=== PATIENT | female | born 1930 | race Caucasian/White ===

== ENCOUNTER 2016-07-02 11:39 | Inpatient (IN) | payer MEDICARE, OTHER ==
[~2016-07-02] VITALS: Ht 157.5 cm; Wt 61.8 kg
[~2016-07-02 11:39] MED LIST: BENI20TA5 PO; CIPR500T19 PO; DOXY100C PO; FEOS200T2 PO; FERR325T3 PO; FOLI1TAB2 PO; HYDR-4267 PO; HYDR25TAB PO; LABE20TAB PO; NITR100C37 PO; ZETI10TA2 PO
[2016-07-02 13:32] LABS: BASO # 0.1 K/mm3 (0.0-0.2); BASO % 0.8 % (0.0-1.0); EOS # 0.5 K/mm3 (0.0-0.50); EOS % 5.2 % (0.0-3.0); LARGE UNSTAINED CELL # 0.1 K/mm3 (0.0-0.4); LARGE UNSTAINED CELL % 1.6 % (0.0-4.0); LYMPH # 0.7 K/mm3 (1.5-4.5); MEAN CORPUSCULAR HEMOGLOBIN 24.9 pg (27.0-33.0); MEAN CORPUSCULAR HGB CONC 28.8 g/dl (32.0-36.5); MEAN CORPUSCULAR VOLUME 86.2 fl (80.0-96.0); MONO # 0.5 K/mm3 (0.0-0.8); MONO % 5.1 % (0.0-5.0); NEUTROPHILS # 7.3 K/mm3 (1.8-7.7); NEUTROPHILS % 81.4 % (36.0-66.0); PLATELET COUNT, AUTOMATED 248 k/mm3 (150-450); RED CELL DISTRIBUTION WIDTH 16.2 % (11.5-14.5); WHITE BLOOD COUNT 8.9 K/mm3 (4.0-10.0)
[2016-07-02 13:35] LABS: ADD MORPHOLOGY? YES
[2016-07-02 13:48] LABS: ANISOCYTOSIS 1+; HYPOCHROMASIA 2+
[2016-07-02 13:52] LABS: CALCIUM LEVEL 9.4 MG/DL (8.8-10.2); CREATININE FOR GFR 1.08 MG/DL (0.55-1.02); GLOMERULAR FILTRATION RATE 51.6 (>32); POTASSIUM SERUM 3.6 MEQ/L (3.5-5.1)
[2016-07-02 14:05] LABS: ERYTHROCYTE SEDIMENTATION RATE 72 mm/hr (0-30)
--- NOTE | 2016-07-02 14:43 | REP ---
Bilateral lower extremity Duplex Doppler venous ultrasound: Real time compression and duplex Doppler interrogation of the bilateral lower extremity deep venous system is performed. Bilaterally, the common femoral, superficial femoral and popliteal veins are fully compressible with transducer pressure and demonstrate normal spontaneous and phasic flow, without evidence of deep venous thrombosis. Impression: No evidence of deep venous thrombosis of the bilateral lower extremity femoral popliteal venous system. Signed by Max Ambriz MD 07/02/2016 02:08 P
[2016-07-02] MEDS ORDERED: NORCO, ANEXSIA 5/325MG TABLET (HYDROcodone/ACETAMINOPHEN) As Ordered ONE (14:52)
--- NOTE | 2016-07-02 15:55 | REP ---
CT right hip without contrast 07/02/2016 Comparison: CT abdomen pelvis 11/28/2013 performed at [facility], right hip series performed 07/02/1969 Indication: Possible occult fracture Comparison: Right hip series to include AP pelvis, AP and frog-leg views right hip; Findings: Advanced osteoarthritic changes are seen within the right hi. There are subchondral cystic change and sclerosis within the right femoral head which can represent small amount of associated avascular necrosis in association with advanced osteoarthritic changes. The included portions of right sara pelvis are intact without acute fracture or diastases of the symphysis pubis or right SI joint. Ovoid soft tissue opacity in the right iliac fossa is most compatible with a hepatomegaly when compared with previous CT abdomen pelvis 11/28/2013 at [facility]. Bladder is contracted. The uterus is absent . 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 No acute fracture or displacement. Visualized portions of the right SI joint, and right lower pelvis are without fracture or displacement Hepatomegaly Signed by Hilda Coello MD 07/02/2016 03:47 P
--- NOTE | 2016-07-02 17:04 | REP ---
PELVIS AND RIGHT HIP: AP view of the pelvis and two views of the right hip are performed. I see no evidence of acute fracture or dislocation. There is severe degenerative changes at the right hip joint with severe joint space narrowing, subchondral sclerosis and cystic changes. There is spurring. There is mild to moderate degenerative change at the left hip joint. There are degenerative changes of the lower lumbar spine. IMPRESSION: Degenerative changes without evidence of acute fracture or dislocation. Signed by Max Ambriz MD 07/03/2016 05:10 P
[2016-07-02] MEDS ORDERED: ACET30TAB PO (17:31)
[2016-07-02] MEDS ORDERED: BUME1TA PO (17:31)
[2016-07-02] MEDS ORDERED: LABE20TAB PO (17:31)
[2016-07-02] MEDS ORDERED: ZYLO300T4 PO (17:31)
[2016-07-02] MEDS ORDERED: HYDR10TAB PO (17:31)
--- NOTE | 2016-07-02 18:47 | EDDOCDS ---
Physician Documentation [facility] Name: Anabelle Hernandez Age: 85 yrs Sex: Female : 1930 Arrival Date: 07/02/2016 Time: 11:39 Bed 17 Private MD: Anthony Mckenzie MD Disposition: 07/02/16 17:02 Hospitalization ordered by Kvng Lacy for Inpatient Admission. Preliminary diagnosis is Pain in right hip. - Bed requested for 5 [place]. - Status is Inpatient Admission. karey - Condition is Stable. - Problem is chronic. - Symptoms have improved. Historical: - Allergies: No known drug Allergies; - Home Meds: 1. losartan 50 mg oral tab 1 tab once daily 2. Zetia 10 mg Oral tab 1 tab once daily 3. bumetanide 1 mg Oral tab 1 tab once daily 4. hydralazine 50 mg Oral tab 1 tab three times a day 5. nitrofurantoin macrocrystal 100 mg Oral cap 1 cap twice a day 6. allopurinol 300 mg Oral tab 1 tab once daily 7. labetalol 200 mg Oral tab 1 tab 2 times per day - PMHx: Hypertension; Hypercholesterolemia; Anemia; - PSHx: Hysterectomy; Tonsillectomy; - Social history: No barriers to communication noted, The patient speaks fluent Danish, Smoking status: Patient states was never smoker of tobacco. - Family history: Not pertinent. - : The pt / caregiver states he / she is not on anticoagulants. Home medication list is obtained from pill bottles. - Exposure Risk Screening:: None identified. Vital Signs: 07/02 12:08 BP 138 / 60; Pulse 86; Resp 18; Temp 98.5(O); Pulse Ox 99% on R/A; Weight 68.04 kg / dem1 150 lbs (R); Height 5 ft. 2 in. (157.48 cm) (R); Pain 3/10; 12:44 BP 135 / 62 (auto/); js13 12:44 Pulse 94 MON; Resp 16; Pulse Ox 97% on R/A; 13 12:59 BP 131 / 72 (auto/); js13 12:59 Pulse 106 MON; Resp 16; Pulse Ox 98% on R/A; 13:14 BP 143 / 62 (auto/); 13:14 Pulse 94 MON; Resp 16; Pulse Ox 98% on R/A; js13 13:29 BP 137 / 64 (auto/); js13 13:29 Pulse 94 MON; Resp 16; Pulse Ox 97% on R/A; js13 13:44 BP 133 / 65 (auto/); js13 13:44 Pulse 94 MON; Resp 18; Pulse Ox 97% on R/A; js13 13:59 BP 157 / 75 (auto/); js13 13:59 Pulse 96 MON; Resp 16; Pulse Ox 100% on R/A; js13 14:14 BP 150 / 67 (auto/); js13 14:14 Pulse 96 MON; Resp 16; Pulse Ox 100% on R/A; js13 14:29 BP 149 / 65 (auto/); js13 14:29 Pulse 96 MON; Resp 16; Pulse Ox 98% on R/A; js13 14:44 BP 133 / 62 (auto/); js13 14:44 Pulse 94 MON; Resp 18; Pulse Ox 98% on R/A; js13 14:59 BP 138 / 97 (auto/); js13 14:59 Pulse 96; Resp 18; Pulse Ox 97% on R/A; js13 15:30 BP 174 / 74 (auto/); js13 15:30 Pulse 98 MON; Resp 18; Pulse Ox 94% on R/A; js13 12:08 Body Mass Index 27.44 (68.04 kg, 157.48 cm) dem1 MDM: 12:57 -Blood Culture (Adults Only), peripheral from different site, or from device/port/PICC sd1 etc. if present ordered. 12:58 CBC with Diff Ordered. EDMS 12:58 MED Profile Ordered. EDMS 12:58 Sed Rate Ordered. EDMS 12:58 CRP Ordered. EDMS 12:58 -Blood Culture Ordered. EDMS 12:59 US Lower Extremities Bilateral R/O DVT Ordered. EDMS 12:59 Hip,AP,LAT to include Pelvis Ordered. EDMS 13:26 -Blood Culture (Adults Only), peripheral from different site, or from device/port/PICC ct3 etc. if present complete. 13:30 BLOOD CULTURES Ordered. EDMS 13:37 RBC MORPH PROF NO CHARGE Ordered. EDMS 14:12 CBC with Diff Reviewed. sd1 14:12 MED Profile Reviewed. sd1 14:12 Sed Rate Reviewed. sd1 14:12 CRP Reviewed. sd1 14:12 RBC MORPH PROF NO CHARGE Reviewed. sd1 14:14 HYDROcodone-acetaminophen 5 mg-325 mg 1 tabs PO once ordered. sd1 14:14 Misc. Nursing Order ordered. sd1 15:04 CT Hip Without Contrast Ordered. EDMS 15:30 Financial registration complete. gjb 16:14 [facility] Payment Agreement was scanned into [employer] and attached to record. gjb 17:07 Admission / Observation Status ordered. EDMS Administered Medications: 15:02 Drug: HYDROcodone-acetaminophen 1 tabs [hydrocodone 5 mg-acetaminophen 325 mg tablet (1 js13 tabs)] Route: PO; Signatures: Dispatcher [employer] EDMS Alicia Vidal MD MD sd1 Leonie Brown, TOWER EQUIPMENT REPAIRER TOWER EQUIPMENT REPAIRER karey DasilvaFabiana smith, TOWER EQUIPMENT REPAIRER TOWER EQUIPMENT REPAIRER ct3 Martha SaraviaRN RUTHIE js13 Tiffanie Dias RN Rosette Segovia mem The chart was reviewed and I authenticate all verbal orders and agree with the evaluation and treatment provided.Attachments: 16:14 [facility] Payment Agreement gj MTDD
--- NOTE | 2016-07-02 18:47 | EDDOCDS ---
Nurse's Notes [facility] Name: Anabelle Hernandez Age: 85 yrs Sex: Female : 1930 Arrival Date: 07/02/2016 Time: 11:39 Bed 17 Private MD: Anthony Mckenzie MD Diagnosis: Pain in right hip Presentation: 07/02 11:58 Presenting complaint: EMS states: Patient fell a year a go causing her right hip to js13 hurt and has been getting "shots" in her right hip with last injection 3 months ago. Patient c/o increased pain in right hip for past couple days and hurts to walk now. Patient called ortho group and was told to come here. Suicide/Homicide risk assessment- the patient denies having any suicidal and/or homicidal ideations and does not present with any other emotional, behavioral or mental health complaints. Status: Patient is not a direct service worker or dependent. Transition of care: patient was not received from another setting of care. Care prior to arrival: See EMS report. 11:58 Acuity: KEO Level 3 [facility] 11:58 Method Of Arrival: Walkin/Carried/Asstd [facility] 18:25 Adult Sepsis Screening: The patient does not have new or worsening altered mentation. js13 Patient's respiratory rate is less than 22. Systolic blood pressure is greater than 100. Patient has a qSOFA score of 0- Negative Sepsis Screen. Triage Assessment: 11:58 General: Appears in no apparent distress, comfortable, Behavior is appropriate for age, js13 cooperative. Pain: Location: right hip Pain currently is 3 out of 10 on a pain scale. Neurological: Level of Consciousness is awake, alert. Respiratory: Airway is patent Respiratory effort is even, unlabored, Respiratory pattern is regular, symmetrical. Derm: Skin is pink, warm & dry. Historical: - Allergies: No known drug Allergies; - Home Meds: 1. losartan 50 mg oral tab 1 tab once daily 2. Zetia 10 mg Oral tab 1 tab once daily 3. bumetanide 1 mg Oral tab 1 tab once daily 4. hydralazine 50 mg Oral tab 1 tab three times a day 5. nitrofurantoin macrocrystal 100 mg Oral cap 1 cap twice a day 6. allopurinol 300 mg Oral tab 1 tab once daily 7. labetalol 200 mg Oral tab 1 tab 2 times per day - PMHx: Hypertension; Hypercholesterolemia; Anemia; - PSHx: Hysterectomy; Tonsillectomy; - Social history: No barriers to communication noted, The patient speaks fluent S[place], Smoking status: Patient states was never smoker of tobacco. - Family history: Not pertinent. - : The pt / caregiver states he / she is not on anticoagulants. Home medication list is obtained from pill bottles. - Exposure Risk Screening:: None identified. Screenin:02 Screening information is obtained from the patient. Fall risk: At risk due to age, gait js13 disturbance. Assistance ADL's: requires no assistance with activities of daily living. Abuse/DV Screen: The patient / caregiver reports he/she is: not in a situation that causes fear, pain or injury. Nutritional screening: No deficits noted. Advance Directives: There is no active DNR order. home support is adequate. Assessment: 12:15 General: Appears in no apparent distress, Behavior is appropriate for age, cooperative. js13 Pain: Location: right hip. Neurological: Level of Consciousness is awake, alert. Cardiovascular: Rhythm is sinus rhythm Chest pain is denied. Respiratory: Airway is patent Respiratory effort is even, unlabored, Respiratory pattern is regular, symmetrical. Derm: Skin is pink, warm & dry. Musculoskeletal: Circulation, motion, and sensation intact Range of motion limited in right hip. 13:39 General: Appears in no apparent distress, Behavior is appropriate for age, cooperative. js13 Pain: Location: right hip. Neurological: Level of Consciousness is awake, alert. Cardiovascular: Rhythm is sinus rhythm Chest pain is denied. Respiratory: Airway is patent Respiratory effort is even, unlabored, Respiratory pattern is regular, symmetrical. Derm: Skin is pink, warm & dry. 14:38 General: Appears in no apparent distress, Behavior is appropriate for age, cooperative. js13 Pain: Location: right hip. Neurological: Level of Consciousness is awake, alert. Cardiovascular: Rhythm is sinus rhythm Chest pain is denied. Respiratory: Airway is patent Respiratory effort is even, unlabored, Respiratory pattern is regular, symmetrical. Derm: Skin is pink, warm & dry. 15:02 General: Patient unable to walk. Patient only able to stand and then sit back down. . js13 15:35 General: Appears in no apparent distress, Behavior is appropriate for age, cooperative. js13 Pain: Location: right hip. Neurological: Level of Consciousness is awake, alert. Cardiovascular: Rhythm is sinus rhythm Chest pain is denied. Respiratory: Airway is patent Respiratory effort is even, unlabored, Respiratory pattern is regular, symmetrical. Derm: Skin is pink, warm & dry. 16:45 Adult Sepsis Screening: The patient does not have new or worsening altered mentation. js13 Patient's respiratory rate is less than 22. Systolic blood pressure is greater than 100. Patient has a qSOFA score of 0- Negative Sepsis Screen. General: Appears in no apparent distress, Behavior is appropriate for age, cooperative. Pain: Location: right hip. Neurological: Level of Consciousness is awake, alert. Neurological: Level of Consciousness is awake, alert. Cardiovascular: Rhythm is sinus rhythm Chest pain is denied. Respiratory: Airway is patent Respiratory effort is even, unlabored, Respiratory pattern is regular, symmetrical. Derm: Skin is pink, warm & dry. 17:44 General: Appears in no apparent distress, Behavior is appropriate for age, cooperative. js13 Pain: Location: right hip. Neurological: Level of Consciousness is awake, alert. Cardiovascular: Chest pain is denied. Respiratory: Airway is patent Respiratory effort is even, unlabored, Respiratory pattern is regular, symmetrical. Derm: Skin is pink, warm & dry. 18:17 General: Appears in no apparent distress, Behavior is appropriate for age, cooperative. js13 Pain: Location: right hip. Neurological: Level of Consciousness is awake, alert. Cardiovascular: Rhythm is sinus rhythm Chest pain is denied. Respiratory: Airway is patent Respiratory effort is even, unlabored, Respiratory pattern is regular, symmetrical. Derm: Skin is pink, warm & dry. Vital Signs: 12:08 BP 138 / 60; Pulse 86; Resp 18; Temp 98.5(O); Pulse Ox 99% on R/A; Weight 68.04 kg (R); dem1 Height 5 ft. 2 in. (157.48 cm) (R); Pain 3/10; 12:44 BP 135 / 62 (auto/); 13 12:44 Pulse 94 MON; Resp 16; Pulse Ox 97% on R/A; 13 12:59 BP 131 / 72 (auto/); js13 12:59 Pulse 106 MON; Resp 16; Pulse Ox 98% on R/A; 13 13:14 BP 143 / 62 (auto/); 13 13:14 Pulse 94 MON; Resp 16; Pulse Ox 98% on R/A; js13 13:29 BP 137 / 64 (auto/); js13 13:29 Pulse 94 MON; Resp 16; Pulse Ox 97% on R/A; js13 13:44 BP 133 / 65 (auto/); js13 13:44 Pulse 94 MON; Resp 18; Pulse Ox 97% on R/A; js13 13:59 BP 157 / 75 (auto/); js13 13:59 Pulse 96 MON; Resp 16; Pulse Ox 100% on R/A; js13 14:14 BP 150 / 67 (auto/); js13 14:14 Pulse 96 MON; Resp 16; Pulse Ox 100% on R/A; js13 14:29 BP 149 / 65 (auto/); js13 14:29 Pulse 96 MON; Resp 16; Pulse Ox 98% on R/A; js13 14:44 BP 133 / 62 (auto/); js13 14:44 Pulse 94 MON; Resp 18; Pulse Ox 98% on R/A; js13 14:59 BP 138 / 97 (auto/); js13 14:59 Pulse 96; Resp 18; Pulse Ox 97% on R/A; js13 15:30 BP 174 / 74 (auto/); js13 15:30 Pulse 98 MON; Resp 18; Pulse Ox 94% on R/A; js13 12:08 Body Mass Index 27.44 (68.04 kg, 157.48 cm) dem1 Vitals: 11:58 Log In Time N/A - ambulance arrival. js13 ED Course: 11:41 Patient visited by Christie Barrow, Replenishment Merchandising Associate. lbd 11:41 Anthony Mckenzie is Private Physician. lbd 11:41 Patient moved to Waiting lbd 11:42 Martha Saravia,RN is Primary Nurse. lbd 11:42 Patient moved to 17 lbd 12:01 Triage Initiated js13 12:02 The patient / caregiver is instructed regarding the plan of care and ED course. Bed in [facility] low position. Call light in reach. Side rails up X2. 12:02 No procedures done that require assistance. js13 12:03 Patient visited by Martha Saravia,RUTHIE. 13 12:06 Patient visited by Rona Harmon. dem1 12:06 child monitor on. Pulse ox on. NIBP on. dem1 12:08 Patient visited by Rona Harmon. dem1 12:13 Alicia Vidal MD is Attending Physician. sd1 12:42 Patient visited by Alicia Vidal MD. sd1 13:26 CRP Sent. ct3 13:26 Sed Rate Sent. ct3 13:26 MED Profile Sent. ct3 13:26 -Blood Culture Sent. ct3 13:26 CBC with Diff Sent. ct3 13:41 Patient visited by Martha Saravia RN. js13 13:43 Patient moved to Ultrasound hgl 13:48 RBC MORPH PROF NO CHARGE Sent. js13 14:02 Patient moved to 17 hgl 14:39 Patient visited by Martha Saravia RN. js13 15:08 US Lower Extremities Bilateral R/O DVT Returned. EDMS 15:36 Patient visited by Martha Saravia RN. js13 16:14 [facility] Payment Agreement was scanned into [employer] and attached to record. gjb 16:37 CT Hip Without Contrast Returned. EDMS 16:44 Patient visited by Alicia Vidal MD. sd1 17:02 Kvng Lacy DO is Hospitalizing Provider. sd1 17:23 Hip,AP,LAT to include Pelvis Returned. EDMS 17:47 Patient visited by Martha Saravia RN. js13 18:18 Patient visited by Martha Saravia RN. js13 18:27 No IV's were initiated during this patient's visit. js13 Administered Medications: 15:02 Drug: HYDROcodone-acetaminophen 1 tabs [hydrocodone 5 mg-acetaminophen 325 mg tablet (1 js13 tabs)] Route: PO; Order Results: Lab Order: CBC with Diff; SPEC'M 07/02/16 13:24 Test: WHITE BLOOD COUNT; Value: 8.9; Range: 4.0-10.0; Units: K/mm3; Status: F Test: RED BLOOD COUNT; Value: 3.68; Range: 4.00-5.40; Abnormal: Below low normal; Units: M/mm3; Status: F Test: HEMOGLOBIN; Value: 9.2; Range: 12.0-16.0; Abnormal: Below low normal; Units: g/dl; Status: F Test: HEMATOCRIT; Value: 31.7; Range: 36.0-47.0; Abnormal: Below low normal; Units: %; Status: F Test: MEAN CORPUSCULAR VOLUME; Value: 86.2; Range: 80.0-96.0; Units: fl; Status: F Test: MEAN CORPUSCULAR HEMOGLOBIN; Value: 24.9; Range: 27.0-33.0; Abnormal: Below low normal; Units: pg; Status: F Test: MEAN CORPUSCULAR HGB CONC; Value: 28.8; Range: 32.0-36.5; Abnormal: Below low normal; Units: g/dl; Status: F Test: RED CELL DISTRIBUTION WIDTH; Value: 16.2; Range: 11.5-14.5; Abnormal: Above high normal; Units: %; Status: F Test: PLATELET COUNT, AUTOMATED; Value: 248; Range: 150-450; Units: k/mm3; Status: F Test: NEUTROPHILS %; Value: 81.4; Range: 36.0-66.0; Abnormal: Above high normal; Units: %; Status: F Test: LYMPH %; Value: 6.0; Range: 24.0-44.0; Abnormal: Below low normal; Units: %; Status: F Test: MONO %; Value: 5.1; Range: 0.0-5.0; Abnormal: Above high normal; Units: %; Status: F Test: EOS %; Value: 5.2; Range: 0.0-3.0; Abnormal: Above high normal; Units: %; Status: F Test: BASO %; Value: 0.8; Range: 0.0-1.0; Units: %; Status: F Test: LARGE UNSTAINED CELL %; Value: 1.6; Range: 0.0-4.0; Units: %; Status: F Test: NEUTROPHILS #; Value: 7.3; Range: 1.8-7.7; Units: K/mm3; Status: F Test: LYMPH #; Value: 0.7; Range: 1.5-4.5; Abnormal: Below low normal; Units: K/mm3; Status: F Test: MONO #; Value: 0.5; Range: 0.0-0.8; Units: K/mm3; Status: F Test: EOS #; Value: 0.5; Range: 0.0-0.50; Units: K/mm3; Status: F Test: BASO #; Value: 0.1; Range: 0.0-0.2; Units: K/mm3; Status: F Test: LARGE UNSTAINED CELL #; Value: 0.1; Range: 0.0-0.4; Units: K/mm3; Status: F Test: PLATELET ESTIMATE; Range: NORMAL; Status: I Lab Order: MED Profile; SPEC'M 07/02/16 13:23 Test: GLUCOSE, FASTING; Value: 135; Range: 83-110; Abnormal: Above high normal; Units: MG/DL; Status: F Test: BLOOD UREA NITROGEN; Value: 23; Range: 7-18; Abnormal: Above high normal; Units: MG/DL; Status: F Test: CREATININE FOR GFR; Value: 1.08; Range: 0.55-1.02; Abnormal: Above high normal; Units: MG/DL; Status: F Test: GLOMERULAR FILTRATION RATE; Value: 51.6; Range: >32; Status: F Test: SODIUM LEVEL; Value: 140; Range: 136-145; Units: MEQ/L; Status: F Test: POTASSIUM SERUM; Value: 3.6; Range: 3.5-5.1; Units: MEQ/L; Status: F Test: CHLORIDE LEVEL; Value: 101; Range: 98-107; Units: MEQ/L; Status: F Test: CARBON DIOXIDE LEVEL; Value: 32; Range: 21-32; Units: MEQ/L; Status: F Test: ANION GAP; Value: 7; Range: 8-16; Abnormal: Below low normal; Units: MEQ/L; Status: F Test: CALCIUM LEVEL; Value: 9.4; Range: 8.8-10.2; Units: MG/DL; Status: F Test Note: ; Units are mL/min/1.73 m2 Chronic Kidney Disease Staging per NKF: Stage I & II GFR >=60 Normal to Mildly Decreased Stage III GFR 30-59 Moderately Decreased Stage IV GFR 15-29 Severely Decreased Stage V GFR <15 Very Little GFR Left ESRD GFR <15 on THERAPEUTIC RECREATION DIRECTOR Lab Order: Sed Rate; SPEC'M 07/02/16 13:24 Test: ERYTHROCYTE SEDIMENTATION RATE; Value: 72; Range: 0-30; Abnormal: Above high normal; Units: mm/hr; Status: F Lab Order: CRP; SPEC'M 07/02/16 13:23 Test: C REACTIVE PROTEIN QUANTITATIV; Value: 3.95; Range: 0.00-0.30; Abnormal: Above high normal; Units: MG/DL; Status: F Lab Order: RBC MORPH PROF NO CHARGE; SPEC'M 07/02/16 13:24 Test: HYPOCHROMASIA; Value: 2+; Status: F Test: ANISOCYTOSIS; Value: 1+; Status: F Test: PLATELET ESTIMATE; Value: NORMAL; Range: NORMAL; Status: F Radiology Order: US Lower Extremities Bilateral R/O DVT Test: US Lower Extremities Bilateral R/O DVT REASON FOR EXAMINATION: swelling; Bilateral lower extremity Duplex Doppler venous ultrasound:; ; Real time compression and duplex Doppler interrogation of the bilateral lower; extremity deep venous system is performed. Bilaterally, the common femoral,; superficial femoral and popliteal veins are fully compressible with transducer; pressure and demonstrate normal spontaneous and phasic flow, without evidence of; deep venous thrombosis.; ; Impression:; ; No evidence of deep venous thrombosis of the bilateral lower extremity femoral; popliteal venous system.; ; ; Signed by; Max Ambriz MD 07/02/2016 02:08 P; Radiology Order: Hip,AP,LAT to include Pelvis Test: Hip,AP,LAT to include Pelvis REASON FOR EXAMINATION: Trauma; PELVIS AND RIGHT HIP:; ; AP view of the pelvis and two views of the right hip are performed.; ; I see no evidence of acute fracture or dislocation. There is severe degenerative; changes at the right hip joint with severe joint space narrowing, subchondral; sclerosis and cystic changes. There is spurring. There is mild to moderate; degenerative change at the left hip joint. There are degenerative changes of the; lower lumbar spine.; ; IMPRESSION:; Degenerative changes without evidence of acute fracture or dislocation.; ; ; ; Unreviewed; Radiology Order: CT Hip Without Contrast Test: CT Hip Without Contrast REASON FOR EXAMINATION: ?occult fx; CT right hip without contrast 07/02/2016; ; Comparison: CT abdomen pelvis 11/28/2013 performed at [facility],; right hip series performed 07/02/1969; ; Indication: Possible occult fracture; ; Comparison: Right hip series to include AP pelvis, AP and frog-leg views right; hip;; ; Findings: Advanced osteoarthritic changes are seen within the right hi. There; are subchondral cystic change and sclerosis within the right femoral head which; can represent small amount of associated avascular necrosis in association with; advanced osteoarthritic changes. The included portions of right sara pelvis; are intact without acute fracture or diastases of the symphysis pubis or right; SI joint.; ; Ovoid soft tissue opacity in the right iliac fossa is most compatible with a; hepatomegaly when compared with previous CT abdomen pelvis 11/28/2013 at [facility].; ; Bladder is contracted. The uterus is absent . 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 No acute fracture or; displacement. Visualized portions of the right SI joint, and right lower pelvis; are without fracture or displacement; ; Hepatomegaly; ; ; ; ; ; ; ; ; ; ; Signed by; Hilda Coello MD 07/02/2016 03:47 P; Outcome: 17:02 Decision to Hospitalize by Provider. sd1 18:26 Discharge Assessment: Patient awake, alert and oriented x 3. No cognitive and/or js13 functional deficits noted. Patient verbalized understanding of disposition instructions. patient administered narcotics - no. The following High Risk Discharge criteria are identified: None. Admitted to Med/Surg accompanied by tech, family with patient, via stretcher, with chart. Condition: stable. CT Study completed. Admission hand-off: Report Faxed. Property :Personal belongings accompany Pt. 18:46 Patient left the ED. karey Signatures: Dispatcher [employer] EDAliica Kwon MD MD sd1 Christie Barrow, Replenishment Merchandising Associate Unit lbd Leonie Brown, ANESTHESIOLOGY RESIDENT ANESTHESIOLOGY RESIDENT karey Fabiana Dasilva, ANESTHESIOLOGY RESIDENT ANESTHESIOLOGY RESIDENT ct3 Rona Harmon dem1 Martha Saravia RN RN js13 Ashwin Anguiano Gabriela gjb Corrections: (The following items were deleted from the chart) 16:31 15:30 Pulse 148bpm; MonitorResp 18bpm; Pulse Ox 94% RA; js13 js13 18:27 13:25 Inserted saline lock: 18 gauge in left antecubital area and blood collected. The js13 patient tolerated the procedure well. js13 MTDD
--- NOTE | 2016-07-02 19:01 | HPEPDOC ---
General Date of Admission Jul 02, 2016 at 17:03 Primary Care Physician: Anthony Mckenzie Chief Complaint The patient is a 85-year-old female admitted with a reason for visit of Hip Pain. Source: Patient History of Present Illness Ms. Hernandez is an 85 y/o female with past medical history of HTN, hypercholesteremia anemia and degenerative back disease who presents this evening after she states over the past few days her right hip has been causing her more pain; she also states that she has been unable to get out of bed for the past week because her legs feel stiff. The patient also states that for the past 2 months she feels the back of her legs, especially around her knee area, has been holding more fluid. The patient explains to me that a nurse has started coming into her home to help with ADL, and it was the nurse who was alarmed at how difficult it was for her to get out of bed. The patient does see orthopedic surgery in [facility] and receives steroid shots in her right hip for the pain, the most recent being 3 months ago, the patient states this right hip pain initially came about one year prior when she sustained a fall and conservative treatment was initiated. The patient denies any acute trauma, states that she is sometimes constipated from her Tylenol No. 3 medication for pain, she admits that she did have some dysuria last month and was started on nitrofurantoin on June 19 2016. The patient denies feeling ill lately but does say that she has had a cold over the past week with runny nose and sinus congestion, denies muscle aches, fever, night sweats. She was seen in [facility] 2 years ago for a complete hysterectomy where they noted that she has "some sort of heart flutter", details of which are not readily remembered by the patient. She carries no history of heart failure, she did receive a cardiac catheterization prior to her hysterectomy as part of her medical clearance as the patient states- believes the results were "ok" and had no blockage. Patient denies blurred vision, headaches, blood in her urine or continued dysuria. She states that she holds fluid in her legs bilaterally chronically- which will cause them to become red, swollen, stiff and break out, ulcerate and exude clear fluid. She actually states that this has been better recently, and the only changes she has noticed is more fluid that she is holding bilaterally in her knees. She was supposed to have a chest x-ray done on 06/19/2016 for a productive cough by her PCP, but never made it to the imaging appointment. Today , bedside exam she admits that the pain in her right hip is much improved, but still complains of a productive cough of which she is unable to expectorate sputum. Home Medications Scheduled Allopurinol (Zyloprim) 300 Mg Tab 300 MG PO DAILY (Reported) Bumetanide (Bumetanide) 1 Mg Tab 1 MG PO BID (Reported) Ezetimibe (Zetia) 10 Mg Tab 10 MG PO QHS (Reported) Folic Acid (Folic Acid) 1 Mg Tab 1 MG PO QHS (Reported) Hydralazine HCl (Hydralazine HCl) 50 Mg Tab 50 MG PO BID (Reported) Labetalol HCl (Labetalol HCl) 200 Mg Tab 200 MG PO BID (Reported) Nitrofurantoin (Nitrofurantoin) 100 Mg Cap 100 MG PO BID (Reported) FILLED 06/21/16 FOR 10 DAYS, STATES HAS 5 DAYS LEFT Scheduled PRN Acetaminophen/Codeine (Tylenol/Codeine #3) Tab 2 TAB PO TID PRN PRN PAIN ( Reported) Hydralazine HCl (Hydralazine HCl) 10 Mg Tab 10 MG PO DAILY PRN PRN HIGH BLOOD PRESSURE (Reported) Allergies Coded Allergies: No Known Drug Allergy (Verified Allergy, Unknown, 03/11/14) Furosemide (Unverified Adverse Reaction, Unknown, "PUT MORE FLUID ON", 07/02) Past Medical History Medical History Hypertension Hypercholesterolemia Anemia Degenerative back disease Surgical History Complete hysterectomy 2 years ago in [facility] Tonsillectomy Family History Family History Siblings have heart disease and history of stroke Social History * Smoker: non-smoker Alcohol: denies Drugs: denies Recent Travel/Sick Contacts: Denies: Recent travel Psychosocial History: No pertinent psych hx Social History The patient lives at home with her , states that her children are very close nearby. [facility] Review of Symptoms Constitutional: Reports: Malaise, Weakness, Denies: Chills, Fatigue, Fever, Night Sweats, Weight Loss Eyes: Denies: Conjunctivae inflammation, Eyelid inflammation, Pain, Redness, Vision change ENT: Denies: Head Aches Skin: Reports: Breakdown (b/l LE), Lesions, Rash, Denies: Bruising, Dry, Itching, Jaundice Pulmonary: Reports: Cough, Denies: Dyspnea, Pleuritic Chest Pain Cardiovascular: Denies: Chest Pain, Edema, Lt Headedness, Orthopnea, Palpitations, Paroxysmal Noc. Dyspnea Gastrointestinal: Denies: Abdominal Pain, Constipation, Diarrhea, Nausea, Vomiting Genitourinary: Reports: Frequency (pt has had increased urination for past yr- seen by dr goncalves one year ago- pt did not return for f/u visit), Denies: Dysuria Hematologic: Denies: Bleeding Excessively, Bruising, Petecchia, Purpura Neurological: Reports: Weakness, Denies: Change in speech, Confusion, Incoordination, Numbness Psych: Reports: Mood Normal Physical Examination General Exam: Positive: Alert, Cooperative, No Acute Distress Eye Exam: Positive: Conjunctiva & lids normal, EOMI, PERRLA, Negative: Ptosis, Sclera icteric ENT Exam: Positive: Atraumatic, Mucous membr. moist/pink, Nares Patent, Pharynx Normal, Tongue Midline, Negative: Pharyngeal Edema Neck Exam: Positive: Supple Chest Exam: Positive: Rhonchi (diffuse througout ), Negative: Rales, Wheezing Heart Exam: Positive: Normal S1, Normal S2, Rate Normal, Negative: Bradycardic, Tachycardic Abdomen Exam: Positive: Normal bowel sounds, Soft, Negative: Hepatospenomegaly, Mass, Tenderness Extremity Exam: Positive: Edema (+2 b/l LE), Normal pulses, Swelling (b/l LE), Tenderness (b/l LE), Negative: Clubbing, Cyanosis Skin Exam: Positive: Breakdown (b/l LE from fluid retention), Nl turgor and temperature Vital Signs bp 138/60 hr 86 rr 18 temp 98.5 F 99% on RA Laboratory Data Labs 24H Laboratory Tests 2 07/02/16 13:23: Anion Gap 7L, C-Reactive Protein, Quantitative 3.95H, Blood Urea Nitrogen 23H, Creatinine 1.08H, Sodium Level 140, Potassium Level 3.6, Chloride Level 101, Carbon Dioxide Level 32, Calcium Level 9.4, Glomerular Filtration Rate 51.6 07/02/16 13:24: Anisocytosis 1+, White Blood Count 8.9, Red Blood Count 3.68L, Hemoglobin 9.2L, Hematocrit 31.7L, Mean Corpuscular Volume 86.2, Mean Corpuscular Hemoglobin 24.9L, Mean Corpuscular Hemoglobin Concent 28.8L, Red Cell Distribution Width 16.2H, Platelet Count 248, Neutrophils (%) (Auto) 81.4H, Lymphocytes (%) (Auto) 6.0L, Monocytes (%) (Auto) 5.1H, Eosinophils (%) (Auto) 5.2H, Basophils (%) ( Auto) 0.8, Neutrophils # (Auto) 7.3, Lymphocytes # (Auto) 0.7L, Monocytes # ( Auto) 0.5, Eosinophils # (Auto) 0.5, Basophils # (Auto) 0.1, Erythrocyte Sedimentation Rate 72H, Hypochromasia 2+, Large Unclassified Cells # 0.1, Large Unclassified Cells % 1.6, Platelet Estimate NORMAL CBC/BMP Laboratory Tests 07/02/16 13:23 Calcium Level 9.4 07/02/16 13:24 Red Blood Count 3.68 L, Mean Corpuscular Volume 86.2, Mean Corpuscular Hemoglobin 24.9 L, Mean Corpuscular Hemoglobin Concent 28.8 L, Red Cell Distribution Width 16.2 H, Neutrophils (%) (Auto) 81.4 H, Lymphocytes (%) (Auto ) 6.0 L, Monocytes (%) (Auto) 5.1 H, Eosinophils (%) (Auto) 5.2 H, Basophils (% ) (Auto) 0.8, Neutrophils # (Auto) 7.3, Lymphocytes # (Auto) 0.7 L, Monocytes # (Auto) 0.5, Eosinophils # (Auto) 0.5, Basophils # (Auto) 0.1 Microbiology Microbiology 07/02/16 Blood Culture, Received Pending 07/02/16 Blood Culture, Received Pending (1) Hip pain Status: Acute Response to Treatment: Stable Assessment & Plan: pt will have pain controlled this evening Ortho. has been consulted- appreciate their recommendations continue to monitor pt at bedside in ED states that her hip pain is better now (2) Fluid retention in legs Status: Acute Response to Treatment: Stable Assessment & Plan: will begin lasix 40 mg BID IV with hold parameters SBP <110 and < 2L urine output in 24 hr (3) Venous stasis ulcer Status: Acute Response to Treatment: Stable Assessment & Plan: will order wound culture have PT would eval pt PT to evaluate and treat (4) Hypercholesteremia Status: Chronic Response to Treatment: Stable Assessment & Plan: continue home meds (5) HTN (hypertension) Status: Chronic Response to Treatment: Stable Assessment & Plan: BP has been stable will continue home medications (6) DVT prophylaxis Status: Acute Response to Treatment: Stable Plan / VTE VTE Prophylaxis Ordered?: Yes GME ATTESTATION GME ATTESTATION My preceptor for this patient encounter was physically present in the building during the encounter and was fully available. As needed, all aspects of the patient interview, examination, medical decision making process, and medical care plan development were reviewed and approved by the preceptor. Preceptor is aware and concurs with the plan as stated in the body of this note and will attest to such by his/her cosignature. ATTENDING NOTE Attending Note Attending Note: I have independently examined this patient and all aspects of the exam and treatment decisions have been discussed with the resident. A member of the hospitalist staff will continue to follow this patient. JOHN ARCHER DO Jul 02, 2016 19:01 RENAN MARTIN DO Jul 02, 2016 21:02
[2016-07-02] MEDS ORDERED: **hydrALAZINE** 10 MG TAB PO PRN (19:15)
[2016-07-02 22:00] VITALS: BP 135/61
[2016-07-02] MEDS: FUROSEMIDE 40 MG/4 ML VIAL (J1940) IV SCH (22:01)
[2016-07-02] MEDS: FOLIC ACID 1 MG TAB PO SCH (22:01)
[2016-07-02] MEDS: EZETIMIBE 10 MG TAB (ZETIA) PO SCH (22:01)
[2016-07-02] MEDS: LABETALOL 200 MG TAB PO SCH (22:02)
[2016-07-02] MEDS: **hydrALAZINE** 50 MG TAB PO SCH (22:02)
[2016-07-03] MEDS: ACETAMINOPHEN TAB 650MG DOSE (2X325MG) PO PRN ×4 (01:34→18:09)
[2016-07-03 06:00] VITALS: BP 136/60
[2016-07-03 06:39] LABS: MEAN CORPUSCULAR HEMOGLOBIN 26.1 pg (27.0-33.0); MEAN CORPUSCULAR HGB CONC 30.8 g/dl (32.0-36.5); MEAN CORPUSCULAR VOLUME 84.7 fl (80.0-96.0); RED CELL DISTRIBUTION WIDTH 15.2 % (11.5-14.5); WHITE BLOOD COUNT 8.1 K/mm3 (4.0-10.0)
[2016-07-03 06:52] LABS: CALCIUM LEVEL 8.7 MG/DL (8.8-10.2); CREATININE FOR GFR 1.06 MG/DL (0.55-1.02); GLOMERULAR FILTRATION RATE 52.7 (>32); POTASSIUM SERUM 3.4 MEQ/L (3.5-5.1)
--- NOTE | 2016-07-03 07:31 | IPNPDOC ---
Assessment/Plan Date Seen The patient was seen on 07/03/16. Problems Problems: (1) Hip pain Status: Acute Response to Treatment: Stable Problem Text: pt's right hip pain has been controlled through the evening Ortho. has been consulted- appreciate their recommendations continue to monitor (2) Fluid retention in legs Status: Acute Response to Treatment: Stable Problem Text: Pt still edematous b/l legs will d/c lasix 40 mg BID and resume pts home bumetanide (3) Venous stasis ulcer Status: Acute Response to Treatment: Stable Problem Text: Wound culture pending have PT would evaluate pt PT to evaluate and treat (4) Hypercholesteremia Status: Chronic Response to Treatment: Stable Problem Text: continue home meds (5) HTN (hypertension) Status: Chronic Response to Treatment: Stable Problem Text: BP has been stable will continue home medications (6) DVT prophylaxis Status: Acute Response to Treatment: Stable Problem Text: lovenox renal dose Plan / VTE VTE Prophylaxis Ordered?: Yes Subjective Review of Systems CC/HPI The patient is a 85-year-old female admitted with a reason for visit of Hip Pain. General: Reports: Normal Appetite, Denies: Chills, Fatigue, Malaise, Night Sweats Constitutional: Reports: Weakness, Denies: Chills, Fatigue, Fever, Malaise, Night Sweats Eyes: Denies: Conjunctivae inflammation, Eyelid inflammation, Pain, Redness, Vision change ENT: Denies: Head Aches Skin: Denies: Bruising, Jaundice, Lesions, Rash Pulmonary: Denies: Cough, Dyspnea, Pleuritic Chest Pain Cardiovascular: Denies: Chest Pain, Edema, Orthopnea, Palpitations, Paroxysmal Noc. Dyspnea Gastrointestinal: Denies: Abdominal Pain, Nausea, Vomiting Genitourinary: Denies: Dysuria Neurological: Reports: Weakness, Denies: Numbness Psych: Reports: Mood Normal Objective Physical Examination General Exam: Positive: Alert, Cooperative, No Acute Distress Eye Exam: Positive: Conjunctiva & lids normal, EOMI, PERRLA, Negative: Ptosis, Sclera icteric ENT Exam: Positive: Atraumatic, Mucous membr. moist/pink, Nares Patent, Pharynx Normal, Tongue Midline, Negative: Pharyngeal Edema Neck Exam: Positive: Supple Chest Exam: Positive: Rhonchi (diffuse througout ), Negative: Rales, Wheezing Heart Exam: Positive: Normal S1, Normal S2, Rate Normal, Negative: Bradycardic, Tachycardic Abdomen Exam: Positive: Normal bowel sounds, Soft, Negative: Hepatospenomegaly, Mass, Tenderness Extremity Exam: Positive: Edema (+2 b/l LE), Normal pulses, Swelling (b/l LE), Tenderness (b/l LE), Negative: Clubbing, Cyanosis Skin Exam: Positive: Breakdown (b/l LE from fluid retention), Nl turgor and temperature Vital Signs/I&O Vital Signs Date Time Temp Pulse Resp B/P Pulse Ox O2 Delivery O2 Flow Rate FiO2 07/03/16 06:00 99.4 90 18 136/60 94 Room Air I&O- Last 24 Hours up to 6 AM 07/03/16 05:59 Intake Total 120 ml Output Total 0 ml Balance 120 ml Laboratory Data Labs 24H Laboratory Tests 2 07/02/16 13:23: Anion Gap 7L, C-Reactive Protein, Quantitative 3.95H, Blood Urea Nitrogen 23H, Creatinine 1.08H, Sodium Level 140, Potassium Level 3.6, Chloride Level 101, Carbon Dioxide Level 32, Calcium Level 9.4, Glomerular Filtration Rate 51.6 07/02/16 13:24: Anisocytosis 1+, White Blood Count 8.9, Red Blood Count 3.68L, Hemoglobin 9.2L, Hematocrit 31.7L, Mean Corpuscular Volume 86.2, Mean Corpuscular Hemoglobin 24.9L, Mean Corpuscular Hemoglobin Concent 28.8L, Red Cell Distribution Width 16.2H, Platelet Count 248, Neutrophils (%) (Auto) 81.4H, Lymphocytes (%) (Auto) 6.0L, Monocytes (%) (Auto) 5.1H, Eosinophils (%) (Auto) 5.2H, Basophils (%) ( Auto) 0.8, Neutrophils # (Auto) 7.3, Lymphocytes # (Auto) 0.7L, Monocytes # ( Auto) 0.5, Eosinophils # (Auto) 0.5, Basophils # (Auto) 0.1, Erythrocyte Sedimentation Rate 72H, Hypochromasia 2+, Large Unclassified Cells # 0.1, Large Unclassified Cells % 1.6, Platelet Estimate NORMAL 07/03/16 06:15: Anion Gap 6L, C-Reactive Protein, Quantitative 4.33H, Blood Urea Nitrogen 21H, Creatinine 1.06H, Sodium Level 143, Potassium Level 3.4L, Chloride Level 105, Carbon Dioxide Level 32, Calcium Level 8.7L, Glomerular Filtration Rate 52.7 CBC/BMP Laboratory Tests 07/02/16 13:23 Calcium Level 9.4 07/02/16 13:24 Red Blood Count 3.68 L, Mean Corpuscular Volume 86.2, Mean Corpuscular Hemoglobin 24.9 L, Mean Corpuscular Hemoglobin Concent 28.8 L, Red Cell Distribution Width 16.2 H, Neutrophils (%) (Auto) 81.4 H, Lymphocytes (%) (Auto ) 6.0 L, Monocytes (%) (Auto) 5.1 H, Eosinophils (%) (Auto) 5.2 H, Basophils (% ) (Auto) 0.8, Neutrophils # (Auto) 7.3, Lymphocytes # (Auto) 0.7 L, Monocytes # (Auto) 0.5, Eosinophils # (Auto) 0.5, Basophils # (Auto) 0.1 07/03/16 06:15 Calcium Level 8.7 L, Red Blood Count 3.22 L, Mean Corpuscular Volume 84.7, Mean Corpuscular Hemoglobin 26.1 L, Mean Corpuscular Hemoglobin Concent 30.8 L, Red Cell Distribution Width 15.2 H Microbiology Microbiology 07/02/16 Blood Culture, Received Pending 07/02/16 Blood Culture, Received Pending GME ATTESTATION GME ATTESTATION My preceptor for this patient encounter was physically present in the building during the encounter and was fully available. As needed, all aspects of the patient interview, examination, medical decision making process, and medical care plan development were reviewed and approved by the preceptor. Preceptor is aware and concurs with the plan as stated in the body of this note and will attest to such by his/her cosignature. JOHN ARCHER DO Jul 03, 2016 07:31 JOHN ARCHER DO Jul 03, 2016 07:31
[2016-07-03] MEDS ORDERED: ENOXAPARIN 40 MG/0.4 ML SYRINGE (J1650) SC SCH (09:00)
[2016-07-03] MEDS: ENOXAPARIN 30 MG/0.3 ML SYR (J1650) SC SCH (09:50)
[2016-07-03] MEDS: FUROSEMIDE 40 MG/4 ML VIAL (J1940) IV SCH (09:50)
[2016-07-03] MEDS: **hydrALAZINE** 50 MG TAB PO SCH ×2 (09:50→21:10)
[2016-07-03] MEDS: ALLOPURINOL 300 MG TAB PO SCH (09:50)
[2016-07-03] MEDS: LABETALOL 200 MG TAB PO SCH ×2 (09:51→21:10)
[2016-07-03 14:00] VITALS: BP 120/56
--- NOTE | 2016-07-03 21:01 | CR ---
DATE OF CONSULTATION: 07/03/2016 REASON FOR CONSULTATION: Right hip pain. HISTORY OF PRESENT ILLNESS: She is an 85-year-old female who was admitted to the hospital with exacerbation of right hip, back, and bilateral leg pains associated with significant stiffness and swelling in both of her lower extremities. Her home care provider noted that she developed significantly worsening difficulties with getting up and out of bed and walking. She was admitted through the emergency room by the hospitalist service, and I was called to see her today because of the fact that, despite a couple of days of trying to work with her, she is having difficulty ambulating. They tried to send her home last evening, but she was unable to do so, and I was called to see her for this. She has a known history of severe arthritis of the right hip, some moderate arthritis of the left hip, and severe lumbar spondylosis. She has been seen and treated by Dr. Allen Garrido and has been referred for hip replacement but has yet to follow through with that, because she has been working on some other issues. She recently received a steroid injection of her right hip, almost just shy of 3 months ago, with good relief of the pain, but the pain started coming back, and she noted quite a bit of crepitance and grating sensation. She was admitted and is noted to have significant swelling in her lower extremities. She has a fairly extensive past medical history of hypercholesterolemia, hypertension, chronic anemia, and gout. There has a been a history, a couple years ago, in the [facility] record of having bilateral lower extremity swelling in the past. She also has a known cardiac history of cardiac arrhythmias but no history of congestive heart failure documented in the chart. She has had troubles with lower extremity swelling with weeping exudate, which apparently is what has happened again on this admission. Her medications at home are allopurinol, bumetanide, Zetia, folate, hydralazine, labetalol, nitrofurantoin. ALLERGIES: No known drug allergies. SURGICAL HISTORY: She has had a hysterectomy and tonsillectomy in the past. She has a daughter who works here at [facility] and is a nurse. Does not smoke or drink alcohol excessively. She lives up in [place] with her . REVIEW OF SYSTEMS: Other than in history of present illness (HPI), otherwise unremarkable. The note from the admitting physician review of systems are noted and can be reviewed there. When I examine her, she is actually alert, and she says her pain is quite a bit better, but she notes a grating sensation in her right hip, but it is feeling better as of this morning when I examine her. She has a maximal temperature (T-max) of 99. Her blood pressure is 136/60 with a pulse of 90. Oxygen saturations are 94% on room air, respirations are 18. HEENT exam is benign. Her lumbar spine shows quite a bit of thoracic kyphotic deformities and mild soreness on her low back area. Right hip is markedly stiff and crepitant. Both lower extremities show significant alligator skin deformity below the knees with chronic venous stasis changes with some weeping serous exudate, but it is quite wrinkled now, as if the swelling has diminished somewhat. She has good pulses in her feet, at the dorsalis pedis and posterior tibial bilaterally. She can dorsiflex and plantarflex her ankles well, dorsiflex and plantarflex her toes well with intact sensation. Radiographs of the right hip, CT scan and x-ray, show severe arthritis of the right hip. LABORATORY STUDIES: Reviewed demonstrate a white count of 8.1, hemoglobin 27.3, platelets 222. Sedimentation rate was 72. CRP today was 4.33 with electrolytes sodium 143, potassium 3.4, chloride 105, bicarbonate 32, BUN 21, creatinine 1.06. It is my impression overall that she has severe arthritis of the hip, and there has been a recent exacerbation, but in addition there is obvious other medical comorbidities occurring here with chronic venous stasis changes. Right now I do not really think she is a good surgical candidate given her weeping pitting edema bilaterally. That needs to be cared for first. She actually feels that she is not too bad off in terms of just using Tylenol with codeine medicine as needed and occasional cortisone injections in the right hip as opposed to having hip replacement surgery, which may be the best for her. The plan is to get her mobilized, get her comfortable, and get her other medical conditions stabilized and worked out and evaluated. We can continue to follow her along as an outpatient at our office and possibly arrange further steroid injection of the right hip or even hip replacement if indeed in the future she becomes more of a surgical candidate.
[2016-07-03] MEDS: EZETIMIBE 10 MG TAB (ZETIA) PO SCH (21:10)
[2016-07-03] MEDS: FOLIC ACID 1 MG TAB PO SCH (21:10)
[2016-07-03] MEDS ORDERED: NS 1,000 ML IV SCH (21:30)
[2016-07-03 22:00] VITALS: BP 134/78
[2016-07-04] MEDS: ACETAMINOPHEN TAB 650MG DOSE (2X325MG) PO PRN ×4 (00:54→20:16)
[2016-07-04] MEDS ORDERED: NS 1,000 ML IV ONE (03:13)
[2016-07-04] MEDS ORDERED: PERCOCET 5MG/325MG TAB PO ONE (03:30)
[2016-07-04] MEDS ORDERED: ONDANSETRON 4 MG TAB (S0181) PO ONE (03:30)
[2016-07-04 06:00] VITALS: BP 135/67
[2016-07-04 06:45] LABS: MEAN CORPUSCULAR HEMOGLOBIN 25.7 pg (27.0-33.0); MEAN CORPUSCULAR HGB CONC 30.1 g/dl (32.0-36.5); MEAN CORPUSCULAR VOLUME 85.4 fl (80.0-96.0); RED CELL DISTRIBUTION WIDTH 15.2 % (11.5-14.5); WHITE BLOOD COUNT 8.4 K/mm3 (4.0-10.0)
[2016-07-04 07:04] LABS: CREATININE FOR GFR 0.95 MG/DL (0.55-1.02); GLOMERULAR FILTRATION RATE 59.8 (>32); POTASSIUM SERUM 3.3 MEQ/L (3.5-5.1)
[2016-07-04] MEDS ORDERED: POTASSIUM CHLORIDE 10 MEQ SR TABLET PO ONE (08:00)
--- NOTE | 2016-07-04 08:40 | IPNPDOC ---
Assessment/Plan Date Seen The patient was seen on 07/04/16. Problems Problems: (1) Hip pain Status: Acute Response to Treatment: Stable Problem Text: pt's right hip pain has been controlled Ortho. has been consulted- appreciate their recommendations- she is not a surgical candidate at this time for r. hip replacement, needs to be medically optimized first. May f/u on outpt basis for more steroid injections and potential hip replacement if she her other medical comorbidities become stabilized. continue to monitor (2) Fluid retention in legs Status: Acute Response to Treatment: Stable Problem Text: Pt still edematous b/l legs-weeping exudate wound care consulted- suggest hydra gel and dry dressing- appreciate their recommendations d/c lasix 40 mg BID resume pts home bumetanide-one day ago (3) Fever Status: Acute Response to Treatment: Stable Problem Text: pts temp was documented at 100.5 and 100.3 overnight , 99.3 F now blood cultures pending UC results contaminated, will order another UC wound culture + for staph . aureus Will add on iv abx therapy today (4) Venous stasis ulcer Status: Acute Response to Treatment: Stable Problem Text: Wound culture pending wound PT seen pt, recommended hydra gel and dry dressing- appreciate recommendations (5) Hypercholesteremia Status: Chronic Response to Treatment: Stable Problem Text: continue home meds (6) HTN (hypertension) Status: Chronic Response to Treatment: Stable Problem Text: BP has been stable will continue home medications (7) DVT prophylaxis Status: Acute Response to Treatment: Stable Problem Text: lovenox renal dose Plan / VTE VTE Prophylaxis Ordered?: Yes Subjective Review of Systems CC/HPI The patient is a 85-year-old female admitted with a reason for visit of Hip Pain. General: Denies: Chills Constitutional: Denies: Chills, Fever, Malaise Eyes: Denies: Conjunctivae inflammation, Pain, Vision change ENT: Denies: Head Aches Pulmonary: Denies: Cough, Dyspnea, Pleuritic Chest Pain Cardiovascular: Denies: Chest Pain, Orthopnea, Palpitations Gastrointestinal: Denies: Constipation, Diarrhea, Nausea, Vomiting Hematologic: Denies: Bleeding Excessively, Bruising Neurological: Reports: Weakness, Denies: Change in speech, Incoordination, Numbness Psych: Reports: Mood Normal Objective Physical Examination General Exam: Positive: Alert, Cooperative, No Acute Distress Eye Exam: Positive: Conjunctiva & lids normal, EOMI, PERRLA, Negative: Ptosis, Sclera icteric ENT Exam: Positive: Atraumatic, Mucous membr. moist/pink, Nares Patent, Pharynx Normal, Tongue Midline, Negative: Pharyngeal Edema Neck Exam: Positive: Supple Chest Exam: Positive: Rhonchi (diffuse througout ), Negative: Rales, Wheezing Heart Exam: Positive: Normal S1, Normal S2, Rate Normal, Negative: Bradycardic, Tachycardic Abdomen Exam: Positive: Normal bowel sounds, Soft, Negative: Hepatospenomegaly, Mass, Tenderness Extremity Exam: Positive: Edema (+2 b/l LE), Normal pulses, Swelling (b/l LE), Tenderness (b/l LE), Negative: Clubbing, Cyanosis Skin Exam: Positive: Breakdown (b/l LE from fluid retention), Nl turgor and temperature Vital Signs/I&O Vital Signs Date Time Temp Pulse Resp B/P Pulse Ox O2 Delivery O2 Flow Rate FiO2 07/04/16 06:44 Room Air 07/04/16 06:00 99.3 83 16 135/67 94 I&O- Last 24 Hours up to 6 AM 07/04/16 06:00 Intake Total 410 ml Output Total 450 ml Balance -40 ml Laboratory Data Labs 24H Laboratory Tests 2 07/04/16 06:28: Anion Gap 9, Blood Urea Nitrogen 18, Creatinine 0.95, Sodium Level 144, Potassium Level 3.3L, Chloride Level 105, Carbon Dioxide Level 30, Calcium Level 9.0, Glomerular Filtration Rate 59.8 CBC/BMP Laboratory Tests 07/04/16 06:28 Calcium Level 9.0, Red Blood Count 3.51 L, Mean Corpuscular Volume 85.4, Mean Corpuscular Hemoglobin 25.7 L, Mean Corpuscular Hemoglobin Concent 30.1 L, Red Cell Distribution Width 15.2 H Microbiology Microbiology 07/02/16 Blood Culture - Preliminary, Resulted No growth after 24 hours . All specim... 07/02/16 Blood Culture - Preliminary, Resulted No growth after 24 hours . All specim... 07/03/16 Clostridium difficile (PCR) - Final, Complete 07/03/16 Gram Stain - Final, Resulted 07/03/16 Sputum Culture, Resulted Pending 07/03/16 Urine Culture - Final, Complete 07/03/16 Wound Culture, Received Pending GME ATTESTATION GME ATTESTATION My preceptor for this patient encounter was physically present in the building during the encounter and was fully available. As needed, all aspects of the patient interview, examination, medical decision making process, and medical care plan development were reviewed and approved by the preceptor. Preceptor is aware and concurs with the plan as stated in the body of this note and will attest to such by his/her cosignature. JOHN ARCHER DO Jul 04, 2016 08:40
[2016-07-04] MEDS ORDERED: INFLUENZA VIRUS VACCINE HIGH DOSE 0.5 ML SYRINGE (90662) IM ONE (09:00)
[2016-07-04] MEDS: LABETALOL 200 MG TAB PO SCH ×2 (09:24→20:12)
[2016-07-04] MEDS: **hydrALAZINE** 50 MG TAB PO SCH ×2 (09:25→20:13)
[2016-07-04] MEDS: BUMETANIDE 1 MG TAB PO SCH (09:25)
[2016-07-04] MEDS: ALLOPURINOL 300 MG TAB PO SCH (09:25)
[2016-07-04] MEDS: ENOXAPARIN 30 MG/0.3 ML SYR (J1650) SC SCH (09:27)
[2016-07-04] MEDS: NYSTATIN 100,000 UNITS/GM TOPICAL PWD 15 GM TOP SCH ×2 (09:27→20:17)
[2016-07-04 14:00] VITALS: BP 128/60
--- NOTE | 2016-07-04 17:00 | ECGEPIP ---
Stationary ECG Study 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
--- NOTE | 2016-07-04 19:47 | EDDOCDS ---
Nurse's Notes [facility] Name: Anabelle Hernandez Age: 85 yrs Sex: Female : 1930 Arrival Date: 07/02/2016 Time: 11:39 Bed 17 Private MD: Anthony Mckenzie MD Diagnosis: Pain in right hip Presentation: 07/02 11:58 Presenting complaint: EMS states: Patient fell a year a go causing her right hip to js13 hurt and has been getting "shots" in her right hip with last injection 3 months ago. Patient c/o increased pain in right hip for past couple days and hurts to walk now. Patient called ortho group and was told to come here. Suicide/Homicide risk assessment- the patient denies having any suicidal and/or homicidal ideations and does not present with any other emotional, behavioral or mental health complaints. 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 Transition of care: patient was not received from another setting of care. Care prior to arrival: See EMS report. 11:58 Acuity: KEO Level 3 [facility] 11:58 Method Of Arrival: Walkin/Carried/Asstd [facility] 18:25 Adult Sepsis Screening: The patient does not have new or worsening altered mentation. js13 Patient's respiratory rate is less than 22. Systolic blood pressure is greater than 100. Patient has a qSOFA score of 0- Negative Sepsis Screen. Triage Assessment: 11:58 General: Appears in no apparent distress, comfortable, Behavior is appropriate for age, js13 cooperative. Pain: Location: right hip Pain currently is 3 out of 10 on a pain scale. Neurological: Level of Consciousness is awake, alert. Respiratory: Airway is patent Respiratory effort is even, unlabored, Respiratory pattern is regular, symmetrical. Derm: Skin is pink, warm & dry. Historical: - Allergies: No known drug Allergies; - Home Meds: 1. losartan 50 mg oral tab 1 tab once daily 2. Zetia 10 mg Oral tab 1 tab once daily 3. bumetanide 1 mg Oral tab 1 tab once daily 4. hydralazine 50 mg Oral tab 1 tab three times a day 5. nitrofurantoin macrocrystal 100 mg Oral cap 1 cap twice a day 6. allopurinol 300 mg Oral tab 1 tab once daily 7. labetalol 200 mg Oral tab 1 tab 2 times per day - PMHx: Hypertension; Hypercholesterolemia; Anemia; - PSHx: Hysterectomy; Tonsillectomy; - Social history: No barriers to communication noted, The patient speaks fluent Kuwaiti, Smoking status: Patient states was never smoker of tobacco. - Family history: Not pertinent. - : The pt / caregiver states he / she is not on anticoagulants. Home medication list is obtained from pill bottles. - Exposure Risk Screening:: None identified. Screenin:02 Screening information is obtained from the patient. Fall risk: At risk due to age, gait js13 disturbance. Assistance ADL's: requires no assistance with activities of daily living. Abuse/DV Screen: The patient / caregiver reports he/she is: not in a situation that causes fear, pain or injury. Nutritional screening: No deficits noted. Advance Directives: There is no active DNR order. home support is adequate. Assessment: 12:15 General: Appears in no apparent distress, Behavior is appropriate for age, cooperative. js13 Pain: Location: right hip. Neurological: Level of Consciousness is awake, alert. Cardiovascular: Rhythm is sinus rhythm Chest pain is denied. Respiratory: Airway is patent Respiratory effort is even, unlabored, Respiratory pattern is regular, symmetrical. Derm: Skin is pink, warm & dry. Musculoskeletal: Circulation, motion, and sensation intact Range of motion limited in right hip. 13:39 General: Appears in no apparent distress, Behavior is appropriate for age, cooperative. js13 Pain: Location: right hip. Neurological: Level of Consciousness is awake, alert. Cardiovascular: Rhythm is sinus rhythm Chest pain is denied. Respiratory: Airway is patent Respiratory effort is even, unlabored, Respiratory pattern is regular, symmetrical. Derm: Skin is pink, warm & dry. 14:38 General: Appears in no apparent distress, Behavior is appropriate for age, cooperative. js13 Pain: Location: right hip. Neurological: Level of Consciousness is awake, alert. Cardiovascular: Rhythm is sinus rhythm Chest pain is denied. Respiratory: Airway is patent Respiratory effort is even, unlabored, Respiratory pattern is regular, symmetrical. Derm: Skin is pink, warm & dry. 15:02 General: Patient unable to walk. Patient only able to stand and then sit back down. . js13 15:35 General: Appears in no apparent distress, Behavior is appropriate for age, cooperative. js13 Pain: Location: right hip. Neurological: Level of Consciousness is awake, alert. Cardiovascular: Rhythm is sinus rhythm Chest pain is denied. Respiratory: Airway is patent Respiratory effort is even, unlabored, Respiratory pattern is regular, symmetrical. Derm: Skin is pink, warm & dry. 16:45 Adult Sepsis Screening: The patient does not have new or worsening altered mentation. js13 Patient's respiratory rate is less than 22. Systolic blood pressure is greater than 100. Patient has a qSOFA score of 0- Negative Sepsis Screen. General: Appears in no apparent distress, Behavior is appropriate for age, cooperative. Pain: Location: right hip. Neurological: Level of Consciousness is awake, alert. Neurological: Level of Consciousness is awake, alert. Cardiovascular: Rhythm is sinus rhythm Chest pain is denied. Respiratory: Airway is patent Respiratory effort is even, unlabored, Respiratory pattern is regular, symmetrical. Derm: Skin is pink, warm & dry. 17:44 General: Appears in no apparent distress, Behavior is appropriate for age, cooperative. js13 Pain: Location: right hip. Neurological: Level of Consciousness is awake, alert. Cardiovascular: Chest pain is denied. Respiratory: Airway is patent Respiratory effort is even, unlabored, Respiratory pattern is regular, symmetrical. Derm: Skin is pink, warm & dry. 18:17 General: Appears in no apparent distress, Behavior is appropriate for age, cooperative. js13 Pain: Location: right hip. Neurological: Level of Consciousness is awake, alert. Cardiovascular: Rhythm is sinus rhythm Chest pain is denied. Respiratory: Airway is patent Respiratory effort is even, unlabored, Respiratory pattern is regular, symmetrical. Derm: Skin is pink, warm & dry. Vital Signs: 12:08 BP 138 / 60; Pulse 86; Resp 18; Temp 98.5(O); Pulse Ox 99% on R/A; Weight 68.04 kg (R); dem1 Height 5 ft. 2 in. (157.48 cm) (R); Pain 3/10; 12:44 BP 135 / 62 (auto/); 13 12:44 Pulse 94 MON; Resp 16; Pulse Ox 97% on R/A; 13 12:59 BP 131 / 72 (auto/); js13 12:59 Pulse 106 MON; Resp 16; Pulse Ox 98% on R/A; 13 13:14 BP 143 / 62 (auto/); 13 13:14 Pulse 94 MON; Resp 16; Pulse Ox 98% on R/A; js13 13:29 BP 137 / 64 (auto/); js13 13:29 Pulse 94 MON; Resp 16; Pulse Ox 97% on R/A; js13 13:44 BP 133 / 65 (auto/); js13 13:44 Pulse 94 MON; Resp 18; Pulse Ox 97% on R/A; js13 13:59 BP 157 / 75 (auto/); js13 13:59 Pulse 96 MON; Resp 16; Pulse Ox 100% on R/A; js13 14:14 BP 150 / 67 (auto/); js13 14:14 Pulse 96 MON; Resp 16; Pulse Ox 100% on R/A; js13 14:29 BP 149 / 65 (auto/); js13 14:29 Pulse 96 MON; Resp 16; Pulse Ox 98% on R/A; js13 14:44 BP 133 / 62 (auto/); js13 14:44 Pulse 94 MON; Resp 18; Pulse Ox 98% on R/A; js13 14:59 BP 138 / 97 (auto/); js13 14:59 Pulse 96; Resp 18; Pulse Ox 97% on R/A; js13 15:30 BP 174 / 74 (auto/); js13 15:30 Pulse 98 MON; Resp 18; Pulse Ox 94% on R/A; js13 12:08 Body Mass Index 27.44 (68.04 kg, 157.48 cm) dem1 Vitals: 11:58 Log In Time N/A - ambulance arrival. js13 ED Course: 11:41 Patient visited by Christie Barrow, Campaign Manager. lbd 11:41 Anthony Mckenzie is Private Physician. lbd 11:41 Patient moved to Waiting lbd 11:42 Martha Saravia,RN is Primary Nurse. lbd 11:42 Patient moved to 17 lbd 12:01 Triage Initiated js13 12:02 The patient / caregiver is instructed regarding the plan of care and ED course. Bed in [facility] low position. Call light in reach. Side rails up X2. 12:02 No procedures done that require assistance. js13 12:03 Patient visited by Martha Saravia,RUTHIE. 13 12:06 Patient visited by Rona Harmon. dem1 12:06 lance crewmember/mlrs sergeant on. Pulse ox on. NIBP on. dem1 12:08 Patient visited by Rona Harmon. dem1 12:13 Alicia Vidal MD is Attending Physician. sd1 12:42 Patient visited by Alicia Vidal MD. sd1 13:26 CRP Sent. ct3 13:26 Sed Rate Sent. ct3 13:26 MED Profile Sent. ct3 13:26 -Blood Culture Sent. ct3 13:26 CBC with Diff Sent. ct3 13:41 Patient visited by Martha Saravia RN. js13 13:43 Patient moved to Ultrasound hgl 13:48 RBC MORPH PROF NO CHARGE Sent. js13 14:02 Patient moved to 17 hgl 14:39 Patient visited by Martha Saravia RN. js13 15:08 US Lower Extremities Bilateral R/O DVT Returned. EDMS 15:36 Patient visited by Martha Saravia RN. js13 16:14 [facility] Payment Agreement was scanned into evolso and attached to record. gjb 16:37 CT Hip Without Contrast Returned. EDMS 16:44 Patient visited by Alicia Vidal MD. sd1 17:02 Kvng Lacy DO is Hospitalizing Provider. sd1 17:23 Hip,AP,LAT to include Pelvis Returned. EDMS 17:47 Patient visited by Martha Saravia RN. js13 18:18 Patient visited by Martha Saravia RN. js13 18:27 No IV's were initiated during this patient's visit. js13 07/03 12:39 T-Sheet-- Draft Copy was scanned into evol[employer] and attached to record. gb Administered Medications: 07/02 15:02 Drug: HYDROcodone-acetaminophen 1 tabs [hydrocodone 5 mg-acetaminophen 325 mg tablet (1 js13 tabs)] Route: PO; Order Results: Lab Order: CBC with Diff; SPEC'M 07/02/16 13:24 Test: WHITE BLOOD COUNT; Value: 8.9; Range: 4.0-10.0; Units: K/mm3; Status: F Test: RED BLOOD COUNT; Value: 3.68; Range: 4.00-5.40; Abnormal: Below low normal; Units: M/mm3; Status: F Test: HEMOGLOBIN; Value: 9.2; Range: 12.0-16.0; Abnormal: Below low normal; Units: g/dl; Status: F Test: HEMATOCRIT; Value: 31.7; Range: 36.0-47.0; Abnormal: Below low normal; Units: %; Status: F Test: MEAN CORPUSCULAR VOLUME; Value: 86.2; Range: 80.0-96.0; Units: fl; Status: F Test: MEAN CORPUSCULAR HEMOGLOBIN; Value: 24.9; Range: 27.0-33.0; Abnormal: Below low normal; Units: pg; Status: F Test: MEAN CORPUSCULAR HGB CONC; Value: 28.8; Range: 32.0-36.5; Abnormal: Below low normal; Units: g/dl; Status: F Test: RED CELL DISTRIBUTION WIDTH; Value: 16.2; Range: 11.5-14.5; Abnormal: Above high normal; Units: %; Status: F Test: PLATELET COUNT, AUTOMATED; Value: 248; Range: 150-450; Units: k/mm3; Status: F Test: NEUTROPHILS %; Value: 81.4; Range: 36.0-66.0; Abnormal: Above high normal; Units: %; Status: F Test: LYMPH %; Value: 6.0; Range: 24.0-44.0; Abnormal: Below low normal; Units: %; Status: F Test: MONO %; Value: 5.1; Range: 0.0-5.0; Abnormal: Above high normal; Units: %; Status: F Test: EOS %; Value: 5.2; Range: 0.0-3.0; Abnormal: Above high normal; Units: %; Status: F Test: BASO %; Value: 0.8; Range: 0.0-1.0; Units: %; Status: F Test: LARGE UNSTAINED CELL %; Value: 1.6; Range: 0.0-4.0; Units: %; Status: F Test: NEUTROPHILS #; Value: 7.3; Range: 1.8-7.7; Units: K/mm3; Status: F Test: LYMPH #; Value: 0.7; Range: 1.5-4.5; Abnormal: Below low normal; Units: K/mm3; Status: F Test: MONO #; Value: 0.5; Range: 0.0-0.8; Units: K/mm3; Status: F Test: EOS #; Value: 0.5; Range: 0.0-0.50; Units: K/mm3; Status: F Test: BASO #; Value: 0.1; Range: 0.0-0.2; Units: K/mm3; Status: F Test: LARGE UNSTAINED CELL #; Value: 0.1; Range: 0.0-0.4; Units: K/mm3; Status: F Test: PLATELET ESTIMATE; Range: NORMAL; Status: I Lab Order: MED Profile; SPEC'M 07/02/16 13:23 Test: GLUCOSE, FASTING; Value: 135; Range: 83-110; Abnormal: Above high normal; Units: MG/DL; Status: F Test: BLOOD UREA NITROGEN; Value: 23; Range: 7-18; Abnormal: Above high normal; Units: MG/DL; Status: F Test: CREATININE FOR GFR; Value: 1.08; Range: 0.55-1.02; Abnormal: Above high normal; Units: MG/DL; Status: F Test: GLOMERULAR FILTRATION RATE; Value: 51.6; Range: >32; Status: F Test: SODIUM LEVEL; Value: 140; Range: 136-145; Units: MEQ/L; Status: F Test: POTASSIUM SERUM; Value: 3.6; Range: 3.5-5.1; Units: MEQ/L; Status: F Test: CHLORIDE LEVEL; Value: 101; Range: 98-107; Units: MEQ/L; Status: F Test: CARBON DIOXIDE LEVEL; Value: 32; Range: 21-32; Units: MEQ/L; Status: F Test: ANION GAP; Value: 7; Range: 8-16; Abnormal: Below low normal; Units: MEQ/L; Status: F Test: CALCIUM LEVEL; Value: 9.4; Range: 8.8-10.2; Units: MG/DL; Status: F Test Note: ; Units are mL/min/1.73 m2 Chronic Kidney Disease Staging per NKF: Stage I & II GFR >=60 Normal to Mildly Decreased Stage III GFR 30-59 Moderately Decreased Stage IV GFR 15-29 Severely Decreased Stage V GFR <15 Very Little GFR Left ESRD GFR <15 on ENGINEER SOILS Lab Order: Sed Rate; SPEC'M 07/02/16 13:24 Test: ERYTHROCYTE SEDIMENTATION RATE; Value: 72; Range: 0-30; Abnormal: Above high normal; Units: mm/hr; Status: F Lab Order: CRP; SPEC'M 07/02/16 13:23 Test: C REACTIVE PROTEIN QUANTITATIV; Value: 3.95; Range: 0.00-0.30; Abnormal: Above high normal; Units: MG/DL; Status: F Lab Order: RBC MORPH PROF NO CHARGE; SPEC'M 07/02/16 13:24 Test: HYPOCHROMASIA; Value: 2+; Status: F Test: ANISOCYTOSIS; Value: 1+; Status: F Test: PLATELET ESTIMATE; Value: NORMAL; Range: NORMAL; Status: F Radiology Order: US Lower Extremities Bilateral R/O DVT Test: US Lower Extremities Bilateral R/O DVT REASON FOR EXAMINATION: swelling; Bilateral lower extremity Duplex Doppler venous ultrasound:; ; Real time compression and duplex Doppler interrogation of the bilateral lower; extremity deep venous system is performed. Bilaterally, the common femoral,; superficial femoral and popliteal veins are fully compressible with transducer; pressure and demonstrate normal spontaneous and phasic flow, without evidence of; deep venous thrombosis.; ; Impression:; ; No evidence of deep venous thrombosis of the bilateral lower extremity femoral; popliteal venous system.; ; ; Signed by; Max Ambriz MD 07/02/2016 02:08 P; Radiology Order: Hip,AP,LAT to include Pelvis Test: Hip,AP,LAT to include Pelvis REASON FOR EXAMINATION: Trauma; PELVIS AND RIGHT HIP:; ; AP view of the pelvis and two views of the right hip are performed.; ; I see no evidence of acute fracture or dislocation. There is severe degenerative; changes at the right hip joint with severe joint space narrowing, subchondral; sclerosis and cystic changes. There is spurring. There is mild to moderate; degenerative change at the left hip joint. There are degenerative changes of the; lower lumbar spine.; ; IMPRESSION:; Degenerative changes without evidence of acute fracture or dislocation.; ; ; ; Unreviewed; Radiology Order: CT Hip Without Contrast Test: CT Hip Without Contrast REASON FOR EXAMINATION: ?occult fx; CT right hip without contrast 07/02/2016; ; Comparison: CT abdomen pelvis 11/28/2013 performed at [facility],; right hip series performed 07/02/1969; ; Indication: Possible occult fracture; ; Comparison: Right hip series to include AP pelvis, AP and frog-leg views right; hip;; ; Findings: Advanced osteoarthritic changes are seen within the right hi. There; are subchondral cystic change and sclerosis within the right femoral head which; can represent small amount of associated avascular necrosis in association with; advanced osteoarthritic changes. The included portions of right sara pelvis; are intact without acute fracture or diastases of the symphysis pubis or right; SI joint.; ; Ovoid soft tissue opacity in the right iliac fossa is most compatible with a; hepatomegaly when compared with previous CT abdomen pelvis 11/28/2013 at [facility].; ; Bladder is contracted. The uterus is absent . 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 No acute fracture or; displacement. Visualized portions of the right SI joint, and right lower pelvis; are without fracture or displacement; ; Hepatomegaly; ; ; ; ; ; ; ; ; ; ; Signed by; Hilda Coello MD 07/02/2016 03:47 P; Outcome: 17:02 Decision to Hospitalize by Provider. sd1 18:26 Discharge Assessment: Patient awake, alert and oriented x 3. No cognitive and/or js13 functional deficits noted. Patient verbalized understanding of disposition instructions. patient administered narcotics - no. The following High Risk Discharge criteria are identified: None. Admitted to Med/Surg accompanied by tech, family with patient, via stretcher, with chart. Condition: stable. CT Study completed. Admission hand-off: Report Faxed. Property :Personal belongings accompany Pt. 18:46 Patient left the ED. karey Signatures: Dispatcher [employer] EDMS Alicia Vidal MD MD sd1 Christie Barrow, Campaign Manager Unit lbd Raquel Armenta, Reg Reg gb Leonie Brown, HYDRAULIC JACK ADJUSTER HYDRAULIC JACK ADJUSTER karey Fabiana Dasilva, HYDRAULIC JACK ADJUSTER HYDRAULIC JACK ADJUSTER ct3 Rona Harmon dem1 Martha Saravia RN RN js13 Ashwin Anguiano Gabriela gjb Corrections: (The following items were deleted from the chart) 16:31 15:30 Pulse 148bpm; MonitorResp 18bpm; Pulse Ox 94% RA; js13 js13 18:27 13:25 Inserted saline lock: 18 gauge in left antecubital area and blood collected. The js13 patient tolerated the procedure well. js13 Chart Complete MTDD
--- NOTE | 2016-07-04 19:47 | EDDOCDS ---
Physician Documentation [facility] Name: Anabelle Hernandez Age: 85 yrs Sex: Female : 1930 Arrival Date: 07/02/2016 Time: 11:39 Bed 17 Private MD: Anthony Mckenzie MD Disposition: 07/02/16 17:02 Hospitalization ordered by Kvng Lacy for Inpatient Admission. Preliminary diagnosis is Pain in right hip. - Bed requested for 5 [place]. - Status is Inpatient Admission. karey - Condition is Stable. - Problem is chronic. - Symptoms have improved. Historical: - Allergies: No known drug Allergies; - Home Meds: 1. losartan 50 mg oral tab 1 tab once daily 2. Zetia 10 mg Oral tab 1 tab once daily 3. bumetanide 1 mg Oral tab 1 tab once daily 4. hydralazine 50 mg Oral tab 1 tab three times a day 5. nitrofurantoin macrocrystal 100 mg Oral cap 1 cap twice a day 6. allopurinol 300 mg Oral tab 1 tab once daily 7. labetalol 200 mg Oral tab 1 tab 2 times per day - PMHx: Hypertension; Hypercholesterolemia; Anemia; - PSHx: Hysterectomy; Tonsillectomy; - Social history: No barriers to communication noted, The patient speaks fluent Turkmen, Smoking status: Patient states was never smoker of tobacco. - Family history: Not pertinent. - : The pt / caregiver states he / she is not on anticoagulants. Home medication list is obtained from pill bottles. - Exposure Risk Screening:: None identified. Vital Signs: 07/02 12:08 BP 138 / 60; Pulse 86; Resp 18; Temp 98.5(O); Pulse Ox 99% on R/A; Weight 68.04 kg / dem1 150 lbs (R); Height 5 ft. 2 in. (157.48 cm) (R); Pain 3/10; 12:44 BP 135 / 62 (auto/); js13 12:44 Pulse 94 MON; Resp 16; Pulse Ox 97% on R/A; 13 12:59 BP 131 / 72 (auto/); js13 12:59 Pulse 106 MON; Resp 16; Pulse Ox 98% on R/A; 13:14 BP 143 / 62 (auto/); 13:14 Pulse 94 MON; Resp 16; Pulse Ox 98% on R/A; js13 13:29 BP 137 / 64 (auto/); js13 13:29 Pulse 94 MON; Resp 16; Pulse Ox 97% on R/A; js13 13:44 BP 133 / 65 (auto/); js13 13:44 Pulse 94 MON; Resp 18; Pulse Ox 97% on R/A; js13 13:59 BP 157 / 75 (auto/); js13 13:59 Pulse 96 MON; Resp 16; Pulse Ox 100% on R/A; js13 14:14 BP 150 / 67 (auto/); js13 14:14 Pulse 96 MON; Resp 16; Pulse Ox 100% on R/A; js13 14:29 BP 149 / 65 (auto/); js13 14:29 Pulse 96 MON; Resp 16; Pulse Ox 98% on R/A; js13 14:44 BP 133 / 62 (auto/); js13 14:44 Pulse 94 MON; Resp 18; Pulse Ox 98% on R/A; js13 14:59 BP 138 / 97 (auto/); js13 14:59 Pulse 96; Resp 18; Pulse Ox 97% on R/A; js13 15:30 BP 174 / 74 (auto/); js13 15:30 Pulse 98 MON; Resp 18; Pulse Ox 94% on R/A; js13 12:08 Body Mass Index 27.44 (68.04 kg, 157.48 cm) dem1 MDM: 12:57 -Blood Culture (Adults Only), peripheral from different site, or from device/port/PICC sd1 etc. if present ordered. 12:58 CBC with Diff Ordered. EDMS 12:58 MED Profile Ordered. EDMS 12:58 Sed Rate Ordered. EDMS 12:58 CRP Ordered. EDMS 12:58 -Blood Culture Ordered. EDMS 12:59 US Lower Extremities Bilateral R/O DVT Ordered. EDMS 12:59 Hip,AP,LAT to include Pelvis Ordered. EDMS 13:26 -Blood Culture (Adults Only), peripheral from different site, or from device/port/PICC ct3 etc. if present complete. 13:30 BLOOD CULTURES Ordered. EDMS 13:37 RBC MORPH PROF NO CHARGE Ordered. EDMS 14:12 CBC with Diff Reviewed. sd1 14:12 MED Profile Reviewed. sd1 14:12 Sed Rate Reviewed. sd1 14:12 CRP Reviewed. sd1 14:12 RBC MORPH PROF NO CHARGE Reviewed. sd1 14:14 HYDROcodone-acetaminophen 5 mg-325 mg 1 tabs PO once ordered. sd1 14:14 Misc. Nursing Order ordered. sd1 15:04 CT Hip Without Contrast Ordered. EDMS 15:30 Financial registration complete. gjb 16:14 [facility] Payment Agreement was scanned into [employer] and attached to record. gjb 17:07 Admission / Observation Status ordered. EDSC 07/03 12:39 T-Sheet-- Draft Copy was scanned into [employer] and attached to record. gb Administered Medications: 07/02 15:02 Drug: HYDROcodone-acetaminophen 1 tabs [hydrocodone 5 mg-acetaminophen 325 mg tablet (1 js13 tabs)] Route: PO; Signatures: Dispatcher [employer] EDSC Alicia Vidal MD MD sd1 Kathi, Raquel, Reg Reg gb Stephanie, Leonie, SUBGRADE TESTER SUBGRADE TESTER karey Dasilva, Fabiana, SUBGRADE TESTER SUBGRADE TESTER ct3 Martha Saravia,RN RN js13 Tiffanie Dias RN RN mem Beck, Gabriela gjb The chart was reviewed and I authenticate all verbal orders and agree with the evaluation and treatment provided.Attachments: 16:14 [facility] Payment Agreement [facility] [place] 07/03 12:39 T-Sheet-- Draft Copy gb Chart Complete MTDD
--- NOTE | 2016-07-04 19:47 | EDDOCDS ---
Physician Documentation [facility] Name: Anabelle Hernandez Age: 85 yrs Sex: Female : 1930 Arrival Date: 07/02/2016 Time: 11:39 Bed 17 Private MD: Anthony Mckenzie MD Disposition: 07/02/16 17:02 Hospitalization ordered by Kvng Lacy for Inpatient Admission. Preliminary diagnosis is Pain in right hip. - Bed requested for 5 [place]. - Status is Inpatient Admission. karey - Condition is Stable. - Problem is chronic. - Symptoms have improved. Historical: - Allergies: No known drug Allergies; - Home Meds: 1. losartan 50 mg oral tab 1 tab once daily 2. Zetia 10 mg Oral tab 1 tab once daily 3. bumetanide 1 mg Oral tab 1 tab once daily 4. hydralazine 50 mg Oral tab 1 tab three times a day 5. nitrofurantoin macrocrystal 100 mg Oral cap 1 cap twice a day 6. allopurinol 300 mg Oral tab 1 tab once daily 7. labetalol 200 mg Oral tab 1 tab 2 times per day - PMHx: Hypertension; Hypercholesterolemia; Anemia; - PSHx: Hysterectomy; Tonsillectomy; - Social history: No barriers to communication noted, The patient speaks fluent Swedish, Smoking status: Patient states was never smoker of tobacco. - Family history: Not pertinent. - : The pt / caregiver states he / she is not on anticoagulants. Home medication list is obtained from pill bottles. - Exposure Risk Screening:: None identified. Vital Signs: 07/02 12:08 BP 138 / 60; Pulse 86; Resp 18; Temp 98.5(O); Pulse Ox 99% on R/A; Weight 68.04 kg / dem1 150 lbs (R); Height 5 ft. 2 in. (157.48 cm) (R); Pain 3/10; 12:44 BP 135 / 62 (auto/); js13 12:44 Pulse 94 MON; Resp 16; Pulse Ox 97% on R/A; 13 12:59 BP 131 / 72 (auto/); js13 12:59 Pulse 106 MON; Resp 16; Pulse Ox 98% on R/A; 13:14 BP 143 / 62 (auto/); 13:14 Pulse 94 MON; Resp 16; Pulse Ox 98% on R/A; js13 13:29 BP 137 / 64 (auto/); js13 13:29 Pulse 94 MON; Resp 16; Pulse Ox 97% on R/A; js13 13:44 BP 133 / 65 (auto/); js13 13:44 Pulse 94 MON; Resp 18; Pulse Ox 97% on R/A; js13 13:59 BP 157 / 75 (auto/); js13 13:59 Pulse 96 MON; Resp 16; Pulse Ox 100% on R/A; js13 14:14 BP 150 / 67 (auto/); js13 14:14 Pulse 96 MON; Resp 16; Pulse Ox 100% on R/A; js13 14:29 BP 149 / 65 (auto/); js13 14:29 Pulse 96 MON; Resp 16; Pulse Ox 98% on R/A; js13 14:44 BP 133 / 62 (auto/); js13 14:44 Pulse 94 MON; Resp 18; Pulse Ox 98% on R/A; js13 14:59 BP 138 / 97 (auto/); js13 14:59 Pulse 96; Resp 18; Pulse Ox 97% on R/A; js13 15:30 BP 174 / 74 (auto/); js13 15:30 Pulse 98 MON; Resp 18; Pulse Ox 94% on R/A; js13 12:08 Body Mass Index 27.44 (68.04 kg, 157.48 cm) dem1 MDM: 12:57 -Blood Culture (Adults Only), peripheral from different site, or from device/port/PICC sd1 etc. if present ordered. 12:58 CBC with Diff Ordered. EDMS 12:58 MED Profile Ordered. EDMS 12:58 Sed Rate Ordered. EDMS 12:58 CRP Ordered. EDMS 12:58 -Blood Culture Ordered. EDMS 12:59 US Lower Extremities Bilateral R/O DVT Ordered. EDMS 12:59 Hip,AP,LAT to include Pelvis Ordered. EDMS 13:26 -Blood Culture (Adults Only), peripheral from different site, or from device/port/PICC ct3 etc. if present complete. 13:30 BLOOD CULTURES Ordered. EDMS 13:37 RBC MORPH PROF NO CHARGE Ordered. EDMS 14:12 CBC with Diff Reviewed. sd1 14:12 MED Profile Reviewed. sd1 14:12 Sed Rate Reviewed. sd1 14:12 CRP Reviewed. sd1 14:12 RBC MORPH PROF NO CHARGE Reviewed. sd1 14:14 HYDROcodone-acetaminophen 5 mg-325 mg 1 tabs PO once ordered. sd1 14:14 Misc. Nursing Order ordered. sd1 15:04 CT Hip Without Contrast Ordered. EDMS 15:30 Financial registration complete. gjb 16:14 [facility] Payment Agreement was scanned into [email or web address] and attached to record. gjb 17:07 Admission / Observation Status ordered. EDME 07/03 12:39 T-Sheet-- Draft Copy was scanned into [email or web address] and attached to record. gb Administered Medications: 07/02 15:02 Drug: HYDROcodone-acetaminophen 1 tabs [hydrocodone 5 mg-acetaminophen 325 mg tablet (1 js13 tabs)] Route: PO; Signatures: Dispatcher [employer] EDME Alicia Vidal MD MD sd1 Kathi, Raquel, Reg Reg gb Stephanie, Leonie, TIMBER BUYER TIMBER BUYER karey Dasilva, Fabiana, TIMBER BUYER TIMBER BUYER ct3 Martha Saravia,RN RN js13 Tiffanie Dias RN RN mem Beck, Gabriela gjb The chart was reviewed and I authenticate all verbal orders and agree with the evaluation and treatment provided.Attachments: 16:14 [facility] Payment Agreement [facility] 07/03 12:39 T-Sheet-- Draft Copy gb Chart Complete MTDD
[2016-07-04] MEDS: EZETIMIBE 10 MG TAB (ZETIA) PO SCH (20:12)
[2016-07-04] MEDS: FOLIC ACID 1 MG TAB PO SCH (20:12)
[2016-07-04 22:00] VITALS: BP 112/53
[2016-07-05 06:00] VITALS: BP 151/77
--- NOTE | 2016-07-05 06:07 | ECHO ---
DATE OF PROCEDURE: 07/04/2016 DATE OF : 1930 AGE: 85 REFERRING PROVIDER: PATIENT LOCATION: Room 5133. REASON FOR ECHOCARDIOGRAM: Edema. 2D MEASUREMENTS: IVS: 0.89 cm LV: 5.0 cm LVPW: 0.9 cm LA: 4.5 cm Aorta: 2.6 cm IVC: 1.7 cm DOPPLER MEASUREMENTS: Peak velocity across the aortic valve: 2.2 m/s Peak velocity across the LVOT: 1.1 m/s Peak gradient across the aortic valve: 19 mmHg Mean gradient across the aortic valve: 11.5 mmHg Mitral E: 0.85 Mitral A: 1.3 Ratio 0.7 Maximum tricuspid valve velocity: 2.5 m/s 2D COMMENTS: 1. Normal left ventricular size, wall thickness and normal global left ventricular systolic function. The estimated left ventricular systolic ejection fraction is 65% to 70%. 2. Mildly enlarged left atrium. Normal right atrium and right ventricle. 3. The atrial septum appeared to be normal without evidence of defect or shunt. 4. Normal aortic root. 5. Small pericardial effusion was noted mainly posteriorly, no evidence of cardiac tamponade. 6. Mildly calcified aortic valve with normal leaflet excursion. Mildly calcified mitral annulus with normal anterior mitral valve leaflet motion. Normal tricuspid valve and pulmonic valve. The proximal pulmonary artery branches also appeared to be normal. 7. The inferior vena cava was normal in size, central venous pressure is most likely normal. DOPPLER: It detects trace aortic regurgitation, moderate mitral regurgitation, mild tricuspid regurgitation. The calculated pulmonary artery systolic pressure varies between 30 to 40 mmHg. Abnormal relaxation pattern was noted across the mitral valve leaflets as well as the mitral valve annulus consistent with a delayed relaxation. IMPRESSION: 1. Normal global left ventricular systolic function. There are features of left ventricular diastolic dysfunction, grade 1. 2. Aortic valve sclerosis with mild aortic stenosis and trace aortic regurgitation. 3. Mitral annulus calcification with moderate mitral regurgitation and mildly enlarged left atrium. 4. Mild tricuspid regurgitation with mild pulmonary hypertension. 5. Small pericardial effusion was noted, no evidence of cardiac tamponade. MTDD
[2016-07-05 07:05] LABS: MEAN CORPUSCULAR HGB CONC 30.2 g/dl (32.0-36.5); MEAN CORPUSCULAR VOLUME 86.1 fl (80.0-96.0); RED CELL DISTRIBUTION WIDTH 16.5 % (11.5-14.5); WHITE BLOOD COUNT 6.9 K/mm3 (4.0-10.0)
[2016-07-05 07:19] LABS: CALCIUM LEVEL 9.3 MG/DL (8.8-10.2); GLOMERULAR FILTRATION RATE 56.4 (>32); POTASSIUM SERUM 3.5 MEQ/L (3.5-5.1)
[2016-07-05] MEDS: ACETAMINOPHEN TAB 650MG DOSE (2X325MG) PO PRN (07:48)
[2016-07-05] MEDS: **hydrALAZINE** 50 MG TAB PO SCH ×2 (10:51→21:14)
[2016-07-05] MEDS: ALLOPURINOL 300 MG TAB PO SCH (10:51)
[2016-07-05] MEDS: BUMETANIDE 1 MG TAB PO SCH (10:51)
[2016-07-05] MEDS: LABETALOL 200 MG TAB PO SCH ×2 (10:52→21:13)
[2016-07-05] MEDS: ENOXAPARIN 30 MG/0.3 ML SYR (J1650) SC SCH (10:52)
[2016-07-05] MEDS: NYSTATIN 100,000 UNITS/GM TOPICAL PWD 15 GM TOP SCH ×2 (10:53→21:00)
[2016-07-05] MEDS ORDERED: VANCOMYCIN HCL 750 MG, VIAL MATE ADAPTER 1 EACH in D5W 250 ML IV ONE (11:00)
[2016-07-05] MEDS ORDERED: VANCOMYCIN HCL 500 MG in D5W MINI-BAG PLUS 100 ML IV ONE (12:00)
[2016-07-05 14:00] VITALS: BP 115/66
--- NOTE | 2016-07-05 14:05 | PHACANCOPD ---
PHARMACY VANCOMYCIN DOSING Pt Demographics Demographics Patient Age:85 , Weight:61.800 , Gender: female Adjusted Body Weight Date: 07/05/16, Adjusted Body Weight: [61.8] Kg Events Past 24 Hours Events Past 24 Hours: NO: Change in CrCl, Dialysis, Diuretic Therapy, Elevation in WBC, Fever, Other, Pending Diagnostics, Pending Procedures Vancomycin Vancomycin Target Ranges: 15-20 mcg/ml Vancomycin Load Y/N: Yes Load Dose Date Time Vancomycin Load Dose: 1.25g Date: 07/05/16 Time: 1100 Vancomycin Dose Date: 07/05/16. Current Vancomycin Dose: [1g q24h] Intermittent Dosing?: No Labs Labs Item Value Date Time Creatinine 0.95 MG/DL 07/04/16 0628 Creatinine 1.06 MG/DL H 07/03/16 0615 Creatinine 1.00 MG/DL 07/05/16 0629 White Blood Count 8.4 K/mm3 07/04/16 0628 White Blood Count 6.9 K/mm3 07/05/16 0629 Vital Signs Label Value Date Time Patient Temperature 100.0 degrees F 07/04/16 2200 Temperature Source Tympanic 07/04/16 2200 Patient Temperature 98.1 degrees F 07/05/16 0600 Temperature Source Tympanic 07/05/16 0600 Micro Microbiology 07/04/16 Blood Culture - Preliminary, Resulted No growth after 24 hours . All specim... 07/04/16 Blood Culture - Preliminary, Resulted No growth after 24 hours . All specim... 07/02/16 Blood Culture - Preliminary, Resulted No Growth after 72 hours. All specime... 07/02/16 Blood Culture - Preliminary, Resulted No Growth after 72 hours. All specime... 07/05/16 Gastrointestinal Tract Panel (PCR) - Final, Complete 07/03/16 Clostridium difficile (PCR) - Final, Complete 07/03/16 Gram Stain - Final, Resulted 07/03/16 Sputum Culture - Preliminary, Resulted Pseudomonas Aeruginosa Staph.aureus Methicillin Resis 07/03/16 Urine Culture - Final, Complete 07/03/16 Wound Culture - Final, Complete Staph.aureus Methicillin Resis Creatinine Clearance Date:07/05/16. Creatinine Clearance: [36.4]. Assessment and Plan Maintaining Current Dose?: Yes Reason for dose change: No Dose Change Pharmacist Note Pharmacist Note Date: 07/05/16. Pharmacist note: Pt is an 85y/o female with MRSA in her sputum and in a wound. Target trough was set at 15-20mcg/ml. Temp was elevated but has lowered WBC is wnl. To achieve target a loading dose of 1.25g was given at 1100 , maintenance therapy will be 1g q24h and start 07/06@ 800. We will continue to monitor and adjust dose as needed. VERNA TAYLOR PHARMACY Jul 05, 2016 14:05
[2016-07-05] MEDS: MEROPENEM INJ 1 GM in D5W MINI-BAG PLUS 100 ML IV SCH ×2 (14:23→21:14)
[2016-07-05] MEDS: FOLIC ACID 1 MG TAB PO SCH (21:13)
[2016-07-05] MEDS: EZETIMIBE 10 MG TAB (ZETIA) PO SCH (21:14)
[2016-07-05] MEDS: ACETAMINOPH W/CODEINE #3 TAB UD PO PRN (21:16)
[2016-07-05 22:00] VITALS: BP 137/60
[2016-07-06] MEDS: MEROPENEM INJ 1 GM in D5W MINI-BAG PLUS 100 ML IV SCH ×3 (05:44→22:41)
[2016-07-06 06:00] VITALS: BP 135/64
[2016-07-06 06:54] LABS: MEAN CORPUSCULAR HEMOGLOBIN 25.7 pg (27.0-33.0); MEAN CORPUSCULAR HGB CONC 30.3 g/dl (32.0-36.5); MEAN CORPUSCULAR VOLUME 84.8 fl (80.0-96.0); RED CELL DISTRIBUTION WIDTH 16.6 % (11.5-14.5); WHITE BLOOD COUNT 7.8 K/mm3 (4.0-10.0)
[2016-07-06 07:02] LABS: CALCIUM LEVEL 9.1 MG/DL (8.8-10.2); CREATININE FOR GFR 0.96 MG/DL (0.55-1.02); GLOMERULAR FILTRATION RATE 59.1 (>32); POTASSIUM SERUM 3.2 MEQ/L (3.5-5.1)
--- NOTE | 2016-07-06 08:07 | IPNPDOC ---
Assessment/Plan Date Seen The patient was seen on 07/06/16. Problems Problems: (1) Hip pain Status: Acute Response to Treatment: Stable Problem Text: pt's right hip pain has been controlled - have added on pts home pain medication tylenol #3 says it only bothers her when she tries to move or over exert herself-can hear crepitation in joint as per pt Ortho. has been consulted- appreciate their recommendations- she is not a surgical candidate at this time for r. hip replacement, needs to be medically optimized first. May f/u on outpt basis for more steroid injections and potential hip replacement if she her other medical comorbidities become stabilized. continue to monitor (2) Fluid retention in legs Status: Acute Response to Treatment: Stable Problem Text: Pt. is much less edematous b/l legs-weeping exudate has resolved , less erythematous and painful as well to pt. wound care consulted & seen the pt.- suggest hydra-gel and dry dressing- appreciate their recommendations d/c lasix 40 mg BID resume pts home bumetanide-one day ago (3) Fever Status: Acute Response to Treatment: Stable Problem Text: No. fever documented over last 24 hours GI panel negative C-diff negative Blood cultures pending-negative after first 24 hours sputum culture from 3 days ago showed p . aeruginosa, k. ozaenae, and s. aureus meth. resistant pt put on vanco & meropenem antibiotic therapy Wound culture + for staph. aureus (4) Venous stasis ulcer Status: Acute Response to Treatment: Stable Problem Text: wound culture + staph. aureus pt on IV vanco and meropenem abx therapy wound PT seen pt, recommended hydra gel and dry dressing- appreciate recommendations (5) Hypercholesteremia Status: Chronic Response to Treatment: Stable Problem Text: continue home meds (6) HTN (hypertension) Status: Chronic Response to Treatment: Stable Problem Text: BP has been stable will continue home medications (7) DVT prophylaxis Status: Acute Response to Treatment: Stable Problem Text: lovenox renal dose Plan / VTE VTE Prophylaxis Ordered?: Yes Subjective Review of Systems CC/HPI The patient is a 85-year-old female admitted with a reason for visit of Hip Pain. General: Denies: Chills, Night Sweats Constitutional: Denies: Chills, Fever, Malaise Eyes: Denies: Conjunctivae inflammation, Eyelid inflammation, Pain, Redness, Vision change ENT: Denies: Head Aches Skin: Denies: Bruising, Dry, Itching, Jaundice, Lesions, Rash Pulmonary: Denies: Cough, Dyspnea, Pleuritic Chest Pain Cardiovascular: Denies: Chest Pain, Edema, Lt Headedness, Orthopnea, Palpitations, Paroxysmal Noc. Dyspnea Gastrointestinal: Denies: Abdominal Pain, Nausea, Vomiting Genitourinary: Denies: Dysuria Neurological: Denies: Numbness, Weakness Psych: Reports: Mood Normal Objective Physical Examination General Exam: Positive: Alert, Cooperative, No Acute Distress Eye Exam: Positive: Conjunctiva & lids normal, EOMI, PERRLA, Negative: Ptosis, Sclera icteric ENT Exam: Positive: Atraumatic, Mucous membr. moist/pink, Nares Patent, Pharynx Normal, Tongue Midline, Negative: Pharyngeal Edema Neck Exam: Positive: Supple Chest Exam: Positive: Rhonchi (diffuse througout ), Negative: Rales, Wheezing Heart Exam: Positive: Normal S1, Normal S2, Rate Normal, Negative: Bradycardic, Tachycardic Abdomen Exam: Positive: Normal bowel sounds, Soft, Negative: Hepatospenomegaly, Mass, Tenderness Extremity Exam: Positive: Edema (+2 b/l LE), Normal pulses, Tenderness (b/l LE) , Negative: Clubbing, Cyanosis Skin Exam: Positive: Breakdown (b/l LE from fluid retention), Nl turgor and temperature Vital Signs/I&O Vital Signs Date Time Temp Pulse Resp B/P Pulse Ox O2 Delivery O2 Flow Rate FiO2 07/06/16 06:00 98.5 79 18 135/64 97 Room Air I&O- Last 24 Hours up to 6 AM 07/06/16 06:00 Intake Total 600 ml Output Total 0 ml Balance 600 ml Laboratory Data Labs 24H Laboratory Tests 2 07/06/16 06:27: Anion Gap 8, Blood Urea Nitrogen 18, Creatinine 0.96, Sodium Level 143, Potassium Level 3.2L, Chloride Level 107, Carbon Dioxide Level 28, Calcium Level 9.1, Glomerular Filtration Rate 59.1 CBC/BMP Laboratory Tests 07/06/16 06:27 Calcium Level 9.1, Red Blood Count 3.24 L, Mean Corpuscular Volume 84.8, Mean Corpuscular Hemoglobin 25.7 L, Mean Corpuscular Hemoglobin Concent 30.3 L, Red Cell Distribution Width 16.6 H Microbiology Microbiology 07/04/16 Blood Culture - Preliminary, Resulted No growth after 24 hours . All specim... 07/04/16 Blood Culture - Preliminary, Resulted No growth after 24 hours . All specim... 07/02/16 Blood Culture - Preliminary, Resulted No Growth after 72 hours. All specime... 07/02/16 Blood Culture - Preliminary, Resulted No Growth after 72 hours. All specime... 07/05/16 Gastrointestinal Tract Panel (PCR) - Final, Complete 07/03/16 Clostridium difficile (PCR) - Final, Complete 07/03/16 Gram Stain - Final, Complete 07/03/16 Sputum Culture - Final, Complete Pseudomonas Aeruginosa Klebsiella Ozaenae Staph.aureus Methicillin Resis 07/03/16 Urine Culture - Final, Complete 07/03/16 Wound Culture - Final, Complete Staph.aureus Methicillin Resis GME ATTESTATION GME ATTESTATION My preceptor for this patient encounter was physically present in the building during the encounter and was fully available. As needed, all aspects of the patient interview, examination, medical decision making process, and medical care plan development were reviewed and approved by the preceptor. Preceptor is aware and concurs with the plan as stated in the body of this note and will attest to such by his/her cosignature. JOHN ARCHER DO Jul 06, 2016 08:07
[2016-07-06] MEDS: ENOXAPARIN 30 MG/0.3 ML SYR (J1650) SC SCH (10:45)
[2016-07-06] MEDS: LABETALOL 200 MG TAB PO SCH ×2 (10:46→20:12)
[2016-07-06] MEDS: ALLOPURINOL 300 MG TAB PO SCH (10:46)
[2016-07-06] MEDS: VANCOMYCIN HCL 1,000 MG, VIAL MATE ADAPTER 1 EACH in D5W 250 ML IV SCH (10:46)
[2016-07-06] MEDS: **hydrALAZINE** 50 MG TAB PO SCH ×2 (10:46→20:12)
[2016-07-06] MEDS: NYSTATIN 100,000 UNITS/GM TOPICAL PWD 15 GM TOP SCH ×2 (10:47→20:13)
[2016-07-06] MEDS ORDERED: POTASSIUM CHLORIDE 10 MEQ SR TABLET PO ONE (11:30)
[2016-07-06] MEDS: BUMETANIDE 1 MG TAB PO SCH (12:56)
[2016-07-06] MEDS: ACETAMINOPHEN TAB 650MG DOSE (2X325MG) PO PRN (12:56)
[2016-07-06 14:00] VITALS: BP 141/64
[2016-07-06] MEDS: ACETAMINOPH W/CODEINE #3 TAB UD PO PRN (15:27)
[2016-07-06] MEDS: EZETIMIBE 10 MG TAB (ZETIA) PO SCH (20:12)
[2016-07-06] MEDS: FOLIC ACID 1 MG TAB PO SCH (20:12)
[2016-07-06 22:00] VITALS: BP 123/58
[2016-07-07] MEDS: MEROPENEM INJ 1 GM in D5W MINI-BAG PLUS 100 ML IV SCH ×3 (05:35→23:01)
[2016-07-07 06:00] VITALS: BP 129/60
[2016-07-07] MEDS: ACETAMINOPH W/CODEINE #3 TAB UD PO PRN ×3 (06:08→16:37)
[2016-07-07 07:02] LABS: MEAN CORPUSCULAR HGB CONC 30.5 g/dl (32.0-36.5); MEAN CORPUSCULAR VOLUME 85.2 fl (80.0-96.0); RED CELL DISTRIBUTION WIDTH 16.7 % (11.5-14.5); WHITE BLOOD COUNT 8.6 K/mm3 (4.0-10.0)
[2016-07-07 07:13] LABS: CALCIUM LEVEL 9.4 MG/DL (8.8-10.2); CREATININE FOR GFR 1.01 MG/DL (0.55-1.02); GLOMERULAR FILTRATION RATE 55.7 (>32); POTASSIUM SERUM 3.7 MEQ/L (3.5-5.1)
[2016-07-07] MEDS: ALLOPURINOL 300 MG TAB PO SCH (09:09)
[2016-07-07] MEDS: VANCOMYCIN HCL 1,000 MG, VIAL MATE ADAPTER 1 EACH in D5W 250 ML IV SCH (09:09)
[2016-07-07] MEDS: BUMETANIDE 1 MG TAB PO SCH (09:09)
[2016-07-07] MEDS: ENOXAPARIN 30 MG/0.3 ML SYR (J1650) SC SCH (09:09)
[2016-07-07] MEDS: LABETALOL 200 MG TAB PO SCH ×2 (09:10→20:48)
[2016-07-07] MEDS: **hydrALAZINE** 50 MG TAB PO SCH ×2 (09:10→20:48)
[2016-07-07] MEDS: NYSTATIN 100,000 UNITS/GM TOPICAL PWD 15 GM TOP SCH ×2 (09:11→20:48)
--- NOTE | 2016-07-07 11:06 | PHACANCOPD ---
PHARMACY VANCOMYCIN DOSING Pt Demographics Demographics Patient Age:85 , Weight:56.700 , Gender: female Adjusted Body Weight Date: 07/05/16, Adjusted Body Weight: [61.8] Kg Events Past 24 Hours Events Past 24 Hours: NO: Change in CrCl, Dialysis, Diuretic Therapy, Elevation in WBC, Fever, Other, Pending Diagnostics, Pending Procedures Vancomycin Vancomycin indication: MRSA sputum & wound Vancomycin Target Ranges: 15-20 mcg/ml Vancomycin Load Y/N: Yes Load Dose Date Time Vancomycin Load Dose: 1.25g Date: 07/05/16 Time: 1100 Vancomycin Dose Date: 07/07/16. Current Vancomycin Dose: [1g IV q24h @05] Date: 07/05/16. Current Vancomycin Dose: [1g q24h] Intermittent Dosing?: No Labs Labs Item Value Date Time White Blood Count 6.9 K/mm3 07/05/16 0629 White Blood Count 7.8 K/mm3 07/06/16 0627 White Blood Count 8.6 K/mm3 07/07/16 0642 Vancomycin Level Trough 13.6 UG/ML 07/07/16 0642 Creatinine 1.00 MG/DL 07/05/16 0629 Creatinine 0.96 MG/DL 07/06/16 0627 Creatinine 1.01 MG/DL 07/07/16 0642 Micro Microbiology 07/04/16 Blood Culture - Preliminary, Resulted No Growth after 72 hours. All specime... 07/04/16 Blood Culture - Preliminary, Resulted No Growth after 72 hours. All specime... 07/02/16 Blood Culture - Preliminary, Resulted No Growth after 72 hours. All specime... 07/02/16 Blood Culture - Preliminary, Resulted No Growth after 72 hours. All specime... 07/05/16 Gastrointestinal Tract Panel (PCR) - Final, Complete 07/03/16 Clostridium difficile (PCR) - Final, Complete 07/03/16 Gram Stain - Final, Complete 07/03/16 Sputum Culture - Final, Complete Pseudomonas Aeruginosa Klebsiella Ozaenae Staph.aureus Methicillin Resis 07/06/16 Urine Culture - Final, Complete 07/03/16 Urine Culture - Final, Complete 07/03/16 Wound Culture - Final, Complete Staph.aureus Methicillin Resis Creatinine Clearance Date:07/05/16. Creatinine Clearance: [36.4]. Assessment and Plan Maintaining Current Dose?: No Reason for dose change: Trough too low Pharmacist Note Pharmacist Note Date: 07/07/16. Pharmacist note: vanco trough was drawn early, ~75 minutes before the 3rd dose and came back at 13.6. I have rescheduled her dosing to start tomorrow 4 hours earlier. Pt is otherwise stable. We will continue to monitor. Date: 07/05/16. Pharmacist note: Pt is an 85y/o female with MRSA in her sputum and in a wound. Target trough was set at 15-20mcg/ml. Temp was elevated but has lowered WBC is wnl. To achieve target a loading dose of 1.25g was given at 1100 , maintenance therapy will be 1g q24h and start 07/06@ 800. We will continue to monitor and adjust dose as needed. Artem Hernandez Pharm.D. Jul 07, 2016 11:06
[2016-07-07] MEDS: EZETIMIBE 10 MG TAB (ZETIA) PO SCH (20:47)
[2016-07-07] MEDS: FOLIC ACID 1 MG TAB PO SCH (20:47)
[2016-07-07 22:00] VITALS: BP 134/60
--- NOTE | 2016-07-07 22:50 | IPNPDOC ---
Assessment/Plan Date Seen The patient was seen on 07/07/16. Problems Problems: (1) Hip pain Status: Acute Response to Treatment: Stable Problem Text: pt's right hip pain has been controlled - have added on pts home pain medication tylenol #3 says it only bothers her when she tries to move or over exert herself-can hear crepitation in joint as per pt Ortho. has been consulted- appreciate their recommendations- she is not a surgical candidate at this time for r. hip replacement, needs to be medically optimized first. May f/u on outpt basis for more steroid injections and potential hip replacement if she her other medical comorbidities become stabilized. continue to monitor (2) Fluid retention in legs Status: Acute Response to Treatment: Stable Problem Text: Pt. is much less edematous b/l legs-weeping exudate has resolved , less erythematous and painful as well to pt. wound care consulted & seen the pt.- suggest hydra-gel and dry dressing- appreciate their recommendations d/c lasix 40 mg BID resume pts home bumetanide-one day ago (3) Fever Status: Acute Response to Treatment: Stable Problem Text: No. fever documented over last 24 hours GI panel negative C-diff negative Blood cultures pending-negative after first 24 hours sputum culture from 3 days ago showed p . aeruginosa, k. ozaenae, and s. aureus meth. resistant pt put on vanco & meropenem antibiotic therapy Wound culture + for staph. aureus (4) Venous stasis ulcer Status: Acute Response to Treatment: Stable Problem Text: wound culture + staph. aureus pt on IV vanco and meropenem abx therapy wound PT seen pt, recommended hydra gel and dry dressing- appreciate recommendations (5) Hypercholesteremia Status: Chronic Response to Treatment: Stable Problem Text: continue home meds (6) HTN (hypertension) Status: Chronic Response to Treatment: Stable Problem Text: BP has been stable will continue home medications (7) DVT prophylaxis Status: Acute Response to Treatment: Stable Problem Text: lovenox renal dose Plan / VTE VTE Prophylaxis Ordered?: Yes Subjective Review of Systems CC/HPI The patient is a 85-year-old female admitted with a reason for visit of Hip Pain. Objective Physical Examination General Exam: Positive: Alert, Cooperative, No Acute Distress Eye Exam: Positive: Conjunctiva & lids normal, EOMI, PERRLA, Negative: Ptosis, Sclera icteric ENT Exam: Positive: Atraumatic, Mucous membr. moist/pink, Nares Patent, Pharynx Normal, Tongue Midline, Negative: Pharyngeal Edema Neck Exam: Positive: Supple Chest Exam: Positive: Rhonchi (diffuse througout ), Negative: Rales, Wheezing Heart Exam: Positive: Normal S1, Normal S2, Rate Normal, Negative: Bradycardic, Tachycardic Abdomen Exam: Positive: Normal bowel sounds, Soft, Negative: Hepatospenomegaly, Mass, Tenderness Extremity Exam: Positive: Edema (+2 b/l LE), Normal pulses, Tenderness (b/l LE) , Negative: Clubbing, Cyanosis Skin Exam: Positive: Breakdown (b/l LE from fluid retention), Nl turgor and temperature Vital Signs/I&O Vital Signs Date Time Temp Pulse Resp B/P Pulse Ox O2 Delivery O2 Flow Rate FiO2 07/07/16 20:48 95 134/60 07/07/16 18:25 Room Air 07/07/16 17:07 18 07/07/16 16:37 92 07/07/16 14:00 98.3 I&O- Last 24 Hours up to 6 AM 07/07/16 06:00 Intake Total 960 ml Output Total 700 ml Balance 260 ml Laboratory Data Labs 24H Laboratory Tests 2 07/07/16 06:42: Anion Gap 8, Blood Urea Nitrogen 16, Creatinine 1.01, Sodium Level 142, Potassium Level 3.7, Chloride Level 107, Carbon Dioxide Level 27, Calcium Level 9.4, Glomerular Filtration Rate 55.7, Vancomycin Level Trough 13.6 CBC/BMP Laboratory Tests 07/07/16 06:42 Calcium Level 9.4, Red Blood Count 3.46 L, Mean Corpuscular Volume 85.2, Mean Corpuscular Hemoglobin 26.0 L, Mean Corpuscular Hemoglobin Concent 30.5 L, Red Cell Distribution Width 16.7 H Microbiology Microbiology 07/04/16 Blood Culture - Preliminary, Resulted No Growth after 72 hours. All specime... 07/04/16 Blood Culture - Preliminary, Resulted No Growth after 72 hours. All specime... 07/02/16 Blood Culture - Final, Complete NO GROWTH AFTER 5 DAYS 07/02/16 Blood Culture - Final, Complete NO GROWTH AFTER 5 DAYS 07/05/16 Gastrointestinal Tract Panel (PCR) - Final, Complete 07/03/16 Clostridium difficile (PCR) - Final, Complete 07/03/16 Gram Stain - Final, Complete 07/03/16 Sputum Culture - Final, Complete Pseudomonas Aeruginosa Klebsiella Ozaenae Staph.aureus Methicillin Resis 07/06/16 Urine Culture - Final, Complete 07/03/16 Urine Culture - Final, Complete 07/03/16 Wound Culture - Final, Complete Staph.aureus Methicillin Resis LILY LINDSAY DO Jul 07, 2016 22:49
[2016-07-08] MEDS ORDERED: VANCOMYCIN HCL 1,000 MG, VIAL MATE ADAPTER 1 EACH in D5W 250 ML IV SCH (05:00)
[2016-07-08] MEDS: ACETAMINOPH W/CODEINE #3 TAB UD PO PRN (05:21)
[2016-07-08 06:00] VITALS: BP 131/61
[2016-07-08 06:51] LABS: MEAN CORPUSCULAR HGB CONC 30.2 g/dl (32.0-36.5); MEAN CORPUSCULAR VOLUME 86.3 fl (80.0-96.0); RED CELL DISTRIBUTION WIDTH 15.5 % (11.5-14.5); WHITE BLOOD COUNT 6.8 K/mm3 (4.0-10.0)
[2016-07-08 07:14] LABS: GLOMERULAR FILTRATION RATE 56.4 (>32); POTASSIUM SERUM 3.7 MEQ/L (3.5-5.1)
[2016-07-08] MEDS: MEROPENEM INJ 1 GM in D5W MINI-BAG PLUS 100 ML IV SCH ×2 (07:34→13:19)
[2016-07-08] MEDS: BUMETANIDE 1 MG TAB PO SCH (10:01)
[2016-07-08 10:02] VITALS: BP 165/79
[2016-07-08] MEDS: **hydrALAZINE** 50 MG TAB PO SCH (10:02)
[2016-07-08] MEDS: ALLOPURINOL 300 MG TAB PO SCH (10:02)
[2016-07-08] MEDS: LABETALOL 200 MG TAB PO SCH (10:02)
[2016-07-08] MEDS: ENOXAPARIN 30 MG/0.3 ML SYR (J1650) SC SCH (10:03)
[2016-07-08] MEDS: NYSTATIN 100,000 UNITS/GM TOPICAL PWD 15 GM TOP SCH (10:03)
[2016-07-08] MEDS ORDERED: LEVA500T PO (12:54)
[2016-07-08] MEDS ORDERED: BACT800T5 PO (12:54)
[2016-07-08] MEDS: ACETAMINOPHEN TAB 650MG DOSE (2X325MG) PO PRN (13:19)
--- NOTE | 2016-07-29 08:33 | DSES ---
DATE OF ADMISSION: 07/05/2016 DATE OF DISCHARGE: 07/08/2016 PRIMARY CARE PROVIDER: Dr. Mckenzie. REASON FOR ADMISSION: Hip pain. FINAL DIAGNOSES: 1. Methicillin-resistant Staphylococcus aureus (MRSA) in the wound. 2. Pneumonia. 3. Osteoarthritis in the hip. 4. History of gout. 5. History of lower extremity edema. 6. History of hypertension. HISTORY OF PRESENT ILLNESS: The patient is an 86-year-old female with past medical history significant for hypertension and hyperlipidemia who presented to the emergency room complaining of hip pain for the past few days stating she has been unable to get out of bed. She denied any trauma. She stated she was also recently diagnosed with a urinary tract infection (UTI) and discontinued a course of Macrobid over the past few days. The patient was admitted under the hospitalist service. HOSPITAL COURSE: Dr. Jesse Washington from orthopedics was consulted to evaluate the patient's pain and he felt that her pain was likely due to arthritis. He recommended to followup in the office for conservative therapy. The patient started to develop a fever during the hospitalization and blood and urine culture as well as sputum culture were obtained. The patient was positive for MRSA in the wound as well as MRSA in the sputum and Pseudomonas in the sputum. She was treated with IV antibiotics initially until her fever resolved and her symptoms started to improve. Then she was switched to oral medications. Physical therapy was also consulted during the hospitalization for home safety evaluation. They felt that patient needed inpatient rehabilitation upon dishcarge. Once the patient's symptoms had resolved, she was able to participate with physical therapy and she was switched to oral antibiotic. She was discharged to rehabilitation. DISCHARGE INSTRUCTIONS: She is to follow up with her primary care provider in 2-5 days. Diet low-sodium diet. Activities as tolerated. Discharge medications include Levaquin 500 mg by mouth daily for 5 days, Bactrim 1 tablet by mouth twice a day for 5 tablets, Tylenol with Codeine 2 tablets by mouth three times a day as needed pain, allopurinol 300 mg by mouth daily, Bumex 4 mg by mouth twice a day, Zetia 10 mg by mouth at bedtime, folic acid 1 mg by mouth at bedtime, hydralazine 50 mg by mouth twice a day, and labetalol 200 mg by mouth twice a day. DISCHARGE CONDITION: Stable .
== END 2016-07-08 15:20 | DRG 553 ==
LOC: M ED 11:39 → M ED INP 17:03 → M MS5PR 18:50 → OBSVTOIN 07-05 08:46 → EEVIPCON 07-05 08:46
PROVIDERS: ADMIT Hospitalist; ATTEND Internal Medicine
DX: M16.11 Unilateral primary osteoarthritis, right hip (principal); J15.212 Pneumonia due to Methicillin resistant Staphylococcus aureus; I87.2 Venous insufficiency (chronic) (peripheral); Z79.899 Other long term (current) drug therapy; I10 Essential (primary) hypertension; E78.5 Hyperlipidemia, unspecified; M10.9 Gout, unspecified

== ENCOUNTER → 2016-07-11 | Outpatient (REF) ==
[~2016-07-11] MED LIST changes: +ACET30TAB PO; +BACT800T5 PO; +BUME1TA PO; +HYDR10TAB PO; +LEVA500T PO; +ZYLO300T4 PO
[2016-07-11 09:06] LABS: MEAN CORPUSCULAR HEMOGLOBIN 26.5 pg (27.0-33.0); MEAN CORPUSCULAR HGB CONC 31.5 g/dl (32.0-36.5); MEAN CORPUSCULAR VOLUME 84.3 fl (80.0-96.0); RED CELL DISTRIBUTION WIDTH 15.6 % (11.5-14.5)
[2016-07-11 09:38] LABS: ANION GAP 10 MEQ/L (8-16); BLOOD UREA NITROGEN 26 MG/DL (7-18); CALCIUM LEVEL 9.3 MG/DL (8.8-10.2); CARBON DIOXIDE LEVEL 29 MEQ/L (21-32); CHLORIDE LEVEL 103 MEQ/L (98-107); CREATININE FOR GFR 1.61 MG/DL (0.55-1.02); GLOMERULAR FILTRATION RATE 32.5 (>32); GLUCOSE, FASTING 183 MG/DL (83-110); PERCENT SATURATION 8.2 % (13.2-37.4); POTASSIUM SERUM 3.5 MEQ/L (3.5-5.1); SODIUM LEVEL 142 MEQ/L (136-145); TOTAL IRON BINDING CAPACITY 304 UG/DL (250-450); TOTAL PROTEIN 6.8 GM/DL (6.4-8.2)
[2016-07-11 10:20] LABS: VITAMIN B12 LEVEL 261 PG/ML (247-911)
[2016-07-11 10:21] LABS: FOLATE > 24.0 NG/ML (>5.4)
[2016-07-16 10:37] LABS: ALBUMIN 3.45 GM/DL (3.29-5.55); ALBUMIN % 50.8 % (55.8-66.1); GAMMA GLOBULIN % 16.7 % (11.1-18.8)
== END ==
LOC: SKLAB2 07:30
PROVIDERS: ATTEND Internal Medicine
DX: D64.9 Anemia, unspecified (principal)

== ENCOUNTER 2016-10-27 18:10 | Inpatient (IN) | payer MEDICARE, OTHER ==
[~2016-10-27] VITALS: Ht 157.5 cm; Wt 59.8 kg
[2016-10-27] MEDS ORDERED: LOSA50TA20 PO (18:23)
[2016-10-27 18:50] LABS: ADD MORPHOLOGY? YES; BASO % 0.2 % (0.0-1.0); EOS # 0.2 K/mm3 (0.0-0.50); EOS % 2.2 % (0.0-3.0); LARGE UNSTAINED CELL # 0.1 K/mm3 (0.0-0.4); LARGE UNSTAINED CELL % 1.1 % (0.0-4.0); LYMPH # 0.4 K/mm3 (1.5-4.5); LYMPH % 3.3 % (24.0-44.0); MEAN CORPUSCULAR HEMOGLOBIN 23.6 pg (27.0-33.0); MEAN CORPUSCULAR HGB CONC 29.2 g/dl (32.0-36.5); MEAN CORPUSCULAR VOLUME 80.9 fl (80.0-96.0); MONO # 0.8 K/mm3 (0.0-0.8); MONO % 6.9 % (0.0-5.0); NEUTROPHILS # 9.6 K/mm3 (1.8-7.7); NEUTROPHILS % 86.3 % (36.0-66.0); PLATELET COUNT, AUTOMATED 188 k/mm3 (150-450); RED CELL DISTRIBUTION WIDTH 16.9 % (11.5-14.5); WHITE BLOOD COUNT 11.2 K/mm3 (4.0-10.0)
[2016-10-27] MEDS ORDERED: ACETAMINOPHEN TAB 650MG DOSE (2X325MG) PO ONE (19:00)
[2016-10-27] MEDS ORDERED: ASPIRIN 81 MG CHEW TABLET PO ONE (19:00)
[2016-10-27 19:13] LABS: INR 1.15
[2016-10-27 19:17] LABS: ANISOCYTOSIS 1+; HYPOCHROMASIA 2+
[2016-10-27] MEDS ORDERED: ASPI325T PO (19:28)
[2016-10-27 19:37] LABS: ANION GAP 8 MEQ/L (8-16); BLOOD UREA NITROGEN 24 MG/DL (7-18); CALCIUM LEVEL 8.9 MG/DL (8.8-10.2); CARBON DIOXIDE LEVEL 27 MEQ/L (21-32); CHLORIDE LEVEL 105 MEQ/L (98-107); CREATININE FOR GFR 1.11 MG/DL (0.55-1.02); FREE T4 1.38 NG/DL (0.76-1.46); GLOMERULAR FILTRATION RATE 49.9 (>32); GLUCOSE, FASTING 164 MG/DL (83-110); MAGNESIUM LEVEL 1.6 MG/DL (1.8-2.4); SODIUM LEVEL 140 MEQ/L (136-145)
[2016-10-27] MEDS ORDERED: ISOVUE-370 76% 100ML VIAL (Q9967) As Ordered ONE (19:59)
[2016-10-27] MEDS ORDERED: MAGNESIUM OXIDE 400 MG TAB (MAG-OX) PO ONE (20:00)
[2016-10-27] MEDS ORDERED: POTASSIUM CHLORIDE 10 MEQ SR TABLET PO ONE (20:00)
[2016-10-27] MEDS ORDERED: KCL 10MEQ IN 100ML SWI (KRUN) 10 MEQ in APPROPRIATE DILUENT 1 EA IV ONE ×2 (20:00)
[2016-10-27] MEDS ORDERED: cefTRIAXone SOD 1 GM in D5W MINI-BAG PLUS 50 ML IV ONE (21:15)
[2016-10-27] MEDS ORDERED: NS 500 ML IV ONE (21:15)
[2016-10-27] MEDS ORDERED: AZITHROMYCIN INJ 500 MG, VIAL MATE ADAPTER 1 EACH in D5W 250 ML IV ONE (21:15)
[2016-10-27] MEDS ORDERED: AMIODARONE HCL 150 MG in APPROPRIATE DILUENT 1 EA IV STA (22:04)
[2016-10-27] MEDS ORDERED: DIGOXIN INJ 0.5 MG/2 ML AMP (J1160) IV STA (22:04)
[2016-10-28] VITALS (7 sets, daily range): BP systolic 115–163; BP diastolic 47–81
[2016-10-28] MEDS ORDERED: ALBUTEROL SULFATE 2.5 MG/0.5 ML INH NEB SOLN NEB PRN (00:30)
[2016-10-28] MEDS ORDERED: POTASSIUM CHLORIDE 10% LIQ 20 MEQ/15 ML UDC PO ONE (01:00)
[2016-10-28] MEDS ORDERED: AZITHROMYCIN INJ 500 MG, VIAL MATE ADAPTER 1 EACH in D5W 250 ML IV ONE (02:00)
[2016-10-28] MEDS ORDERED: AMIODARONE 150MG/3ML INJ (J0282) IVP STA (03:05)
[2016-10-28] MEDS ORDERED: ACETAMINOPHEN TAB 650MG DOSE (2X325MG) PO PRN (03:15)
[2016-10-28] MEDS ORDERED: NITROGLYCERIN 0.4 MG SUBL TABLET SL PRN (03:15)
[2016-10-28] MEDS: FOLIC ACID 1 MG TAB PO SCH ×2 (03:18→21:30)
[2016-10-28] MEDS: EZETIMIBE 10 MG TAB (ZETIA) PO SCH ×2 (03:18→21:30)
[2016-10-28] MEDS ORDERED: AMIODARONE HCL 150 MG in APPROPRIATE DILUENT 1 EA IV STA (03:19)
[2016-10-28 04:47] LABS: BASO % 0.2 % (0.0-1.0); EOS # 0.1 K/mm3 (0.0-0.50); EOS % 0.9 % (0.0-3.0); LARGE UNSTAINED CELL # 0.2 K/mm3 (0.0-0.4); LARGE UNSTAINED CELL % 1.7 % (0.0-4.0); LYMPH # 0.4 K/mm3 (1.5-4.5); LYMPH % 4.4 % (24.0-44.0); MEAN CORPUSCULAR HEMOGLOBIN 24.5 pg (27.0-33.0); MEAN CORPUSCULAR HGB CONC 30.7 g/dl (32.0-36.5); MONO # 0.8 K/mm3 (0.0-0.8); NEUTROPHILS # 8.5 K/mm3 (1.8-7.7); NEUTROPHILS % 84.8 % (36.0-66.0); PLATELET COUNT, AUTOMATED 156 k/mm3 (150-450); RED CELL DISTRIBUTION WIDTH 17.1 % (11.5-14.5)
[2016-10-28 05:01] LABS: ALBUMIN 2.8 GM/DL (3.2-5.2); ALKALINE PHOSPHATASE 96 U/L (45-117); ALT/SGPT 8 U/L (12-78); ANION GAP 8 MEQ/L (8-16); AST/SGOT 8 U/L (15-37); BILIRUBIN,TOTAL 0.5 MG/DL (0.2-1.0); BLOOD UREA NITROGEN 22 MG/DL (7-18); CALCIUM LEVEL 8.4 MG/DL (8.8-10.2); CARBON DIOXIDE LEVEL 24 MEQ/L (21-32); CHLORIDE LEVEL 108 MEQ/L (98-107); CHOLESTEROL LEVEL 134 MG/DL (< 200); CREATININE FOR GFR 1.05 MG/DL (0.55-1.02); GLOMERULAR FILTRATION RATE 53.2 (>32); GLUCOSE, FASTING 177 MG/DL (83-110); MAGNESIUM LEVEL 1.8 MG/DL (1.8-2.4); PHOSPHORUS LEVEL 3.1 MG/DL (2.5-4.9); POTASSIUM SERUM 3.6 MEQ/L (3.5-5.1); SODIUM LEVEL 140 MEQ/L (136-145); TOTAL PROTEIN 6.3 GM/DL (6.4-8.2); TRIGLYCERIDES LEVEL 64 MG/DL (<150)
--- NOTE | 2016-10-28 06:26 | ECGEPIP ---
Stationary ECG Study [facility] - ED Test Date: 2016-10-27 Pat Name: KATT PENN Department: Room: - Gender: F Anesthesiologist And Critical Care: gardenia : 1930 Requested By: Kadeem Lobo Order Number: [id number] Reading MD: Kadeem Castillo Measurements Intervals Dickinson Rate: 143 P: NE: 0 QRS: -4 QRSD: 92 T: 0 QT: 272 QTc: 420 Interpretive Statements ATRIAL FIBRILLATION WITH RAPID VENTRICULAR RESPONSE LOW QRS VOLTAGE IN EXTREMITY LEADS ST DEVIATION AND MODERATE T-WAVE ABNORMALITY, CONSIDER LATERAL ISCHEMIA NEW RHYTHM/ST-T CHANGES COMPARED TO 07/13/16 Electronically Signed On 10-28-2016 6:26:10 EDT by Kadeem Castillo
[2016-10-28] MEDS: BUMETANIDE 1 MG/4 ML INJ (S0171) IV SCH ×2 (06:29→17:44)
[2016-10-28] MEDS: IPRATROPIUM 0.5MG/ALBUTEROL 2.5MG INH SOL UD 3ML (DUONEB)(J7620) NEB SCH ×4 (07:09→20:00)
--- NOTE | 2016-10-28 07:28 | REP ---
PORTABLE CHEST: HISTORY: Chest pain. COMPARISON: 03/06/2014. A diffuse increase in interstitial markings is present in the lungs consistent with chronic interstitial fibrosis. Increased density is present in the left lower lobe consistent with atelectasis or infiltrate. Cardiac silhouette is enlarged. The pulmonary vasculature is prominent. IMPRESSION: 1. Chronic interstitial fibrosis. 2. Left lower lobe atelectasis or infiltrate. 3. Cardiomegaly. Signed by Everardo Laurent MD 10/28/2016 08:27 A
--- NOTE | 2016-10-28 07:49 | REP ---
Clinical: Acute chest pain with shortness of breath and fever. Technique: Axial contrast enhanced images from the thoracic inlet to the upper abdomen using 100 ml Isovue 370 intravenous contrast material with coronal and sagittal re-formations. Findings: Satisfactory enhancement of the pulmonary vasculature is achieved and no filling defects are identified to suggest pulmonary embolus. There is evidence for cardiomegaly, pulmonary vascular congestion with interstitial edema, moderate bilateral pleural effusions as well as predominantly lingular and lower lobe consolidations/atelectasis. Advanced atherosclerotic changes to the thoracic aorta and coronary arteries noted. No significant adenopathy. No evidence for pneumothorax. Impression: 1. No evidence for pulmonary embolus. 2. Acute findings include cardiomegaly with pulmonary vascular congestion/interstitial edema, moderate pleural effusions, lingular and lower lobe atelectasis/consolidations. Signed by Luis F Cannon MD 10/28/2016 07:42 A
[2016-10-28] MEDS: cefTRIAXone SOD 1 GM in D5W MINI-BAG PLUS 50 ML IV SCH (09:29)
[2016-10-28] MEDS: ASPIRIN 325 MG TAB PO SCH (09:29)
[2016-10-28] MEDS: ENOXAPARIN 40 MG/0.4 ML SYRINGE (J1650) SC SCH (09:29)
[2016-10-28] MEDS: ALLOPURINOL 300 MG TAB PO SCH (09:29)
[2016-10-28 15:45] LABS: FERRITIN 18 NG/ML (8-252); PERCENT SATURATION 4.3 % (13.2-37.4); TOTAL IRON BINDING CAPACITY 302 UG/DL (250-450)
--- NOTE | 2016-10-28 16:25 | IPNPDOC ---
Date Seen The patient was seen on 10/28/16. Progress Note SUBJECTIVE: Ms. Hernandez is an 86-year-old female with atrial fibrillation with rapid ventricular response. She remains admitted to the intensive care unit. She states that the chest, bilateral shoulder, and back pain that brought her to the hospital has subsided. She reports a remote history of atrial fibrillation that occurred before a procedure in [place], [place] 2 years ago. She reports a work-up at that time of catheterization and states that it was negative. Denies any form of cardioversion at that time. She states that she has been upset secondary to her 's health problems and feels that it has contributed to her current situation. She denies weakness, lightheadedness, acute breathing difficulties. OBJECTIVE PHYSICAL EXAMINATION: VITAL SIGNS: Please see below. GENERAL: Elderly female examined at bedside this morning, pleasant, no acute distress HEENT: Atraumatic, normocephalic, periorbital edema bilaterally, poor dentition CARDIOVASCULAR: Irregular rate and rhythm, tachycardic, JVD at 5cm, normal S1 and S2, no murmur appreciated RESPIRATORY: Rhonchi noted in lower lung lobes bilaterally, coarse breath sounds noted bilaterally ABDOMINAL: Soft, non-tender, non-distended EXTREMITIES: Radial pulses irregularly irregular, lower bilateral extremities edematous to +1 up to the level of the knees with associated erythema NEUROLOGICAL: CN II-XII grossly intact PSYCHOLOGICAL: Mood and affect appears appropriate LABORATORY DATA: Please see below. MICROBIOLOGY: Please see below. IMAGING: Chest X-Ray IMPRESSION: 1. Chronic interstitial fibrosis. 2. Left lower lobe atelectasis or infiltrate. 3. Cardiomegaly. CT Angiography Impression: 1. No evidence for pulmonary embolus. 2. Acute findings include cardiomegaly with pulmonary vascular congestion/interstitial edema, moderate pleural effusions, lingular and lower lobe atelectasis/consolidations. DVT prophylaxis ordered?: Lovenox ASSESSMENT AND PLAN: This is a 86-year-old female with atrial fibrillation with rapid ventricular response. PROBLEMS: 1. Atrial fibrillation: Remote history of non-sustained atrial fibrillation. Currently on Lovenox. Ordered Cardizem 30 mg every 6 hours. Willams catheter has been placed for strict monitoring parameters. Will repeat CBC before deciding on long-term anticoagulation as patient is of advanced age which could increase the likelihood of a fall risk and that they may be underlying bleeding risk is secondary to anemia. Obtaining cardiology consult. Verbally discussed case with contact lens polisher on-call and he agreed to see patient. 2. Anemia: Patient reports a history of anemia and was on iron supplementation. H/H is 7.9 and 25.7, respectively. Could consider blood transfusion. Discussed consent. Could be dilutional or occult bleeding. Will monitor. Patient denies complaints. Will obtain iron studies (iron, total iron-binding capacity, transferrin, ferritin) and reticulocyte count. Will also obtain stool for occult blood. 3. Diastolic congestive heart failure: Chest x-ray reports atelectasis and/or consolidation. Patient remains on ceftriaxone for possible underlying CAP. Influenza swab was negative. 4. Chronic kidney disease: BUN and Creatinine is 22 and 1.05, respectively. Likely secondary to underlying heart failure and atrial fibrillation. Continue to monitor with daily BMP. 5. Hypertension: Current bedside BP is 142/82. Hold current home medication regimen as patient was hypotensive at presentation. Started patient on Cardizem 30 mg every 6 hours 6. Dyslipidemia: Continue on current home medication regimen. 7. Gout: Continue on current home medication regimen. DISPOSITION: Currently admitted to the ICU. Continue to monitor atrial fibrillation. Initiated Cardizem 30 mg every 6 hours as well as inserted Willams catheter for strict monitoring parameters. Discussed potential for possible blood transfusion. Will continue to monitor CBC, iron studies, and stool for occult blood. Discussed and confirmed DNR/DNI. VS, I&O, 24H, Fishbone Vital Signs/I&O Vital Signs Date Time Temp Pulse Resp B/P (MAP) Pulse Ox O2 Delivery O2 Flow Rate FiO2 10/28/16 04:00 Nasal Cannula 2.0 10/28/16 04:00 98.9 121 18 117/64 (81) 96 I&O- Last 24 Hours up to 6 AM 10/28/16 05:59 Intake Total 1155 ml Output Total 250 ml Balance 905 ml Laboratory Data 24H LABS Laboratory Tests 2 10/27/16 18:35: White Blood Count 11.2H, Red Blood Count 3.85L, Hemoglobin 9.1L, Hematocrit 31.1L, Mean Corpuscular Volume 80.9, Mean Corpuscular Hemoglobin 23.6L, Mean Corpuscular Hemoglobin Concent 29.2L, Red Cell Distribution Width 16.9H, Platelet Count 188, Neutrophils (%) (Auto) 86.3H, Lymphocytes (%) (Auto) 3.3L, Monocytes (%) (Auto) 6.9H, Eosinophils (%) (Auto) 2.2, Basophils (%) (Auto) 0.2 , Neutrophils # (Auto) 9.6H, Lymphocytes # (Auto) 0.4L, Monocytes # (Auto) 0.8, Eosinophils # (Auto) 0.2, Basophils # (Auto) 0.0, Large Unclassified Cells % 1.1 , Large Unclassified Cells # 0.1, Platelet Estimate NORMAL, Hypochromasia 2+, Anisocytosis 1+, Prothrombin Time 14.8H, Prothromb Time International Ratio 1.15 , Activated Partial Thromboplast Time 40.3H, B-Type Natriuretic Peptide 814H 10/27/16 19:01: Anion Gap 8, Glomerular Filtration Rate 49.9, Lactic Acid Level 1.4, Blood Urea Nitrogen 24H, Creatinine 1.11H, Sodium Level 140, Potassium Level 3.0L, Chloride Level 105, Carbon Dioxide Level 27, Calcium Level 8.9, Phosphorus Level 3.0, Total Creatine Kinase 30, Magnesium Level 1.6L, Creatine Kinase MB 1.5, Creatine Kinase MB Relative Index 5.00H, Troponin I < 0.02, Thyroid Stimulating Hormone (TSH) 0.458, Free Thyroxine 1.38 10/28/16 02:11: Urine Appearance CLEAR, Urine Color YELLOW, Urine pH 5.0, Urine Specific [place] 1.044, Urine Protein NEGATIVE, Urine Glucose (UA) NEGATIVE, Urine Ketones NEGATIVE, Urine Urobilinogen 0.2, Urine Bilirubin NEGATIVE, Urine Leukocyte Esterase 1+H, Urine Blood NEGATIVE, Urine Nitrite NEGATIVE, Urine WBC (Auto) 2, Urine RBC (Auto) 2, Urine Hyaline Casts (Auto) 0, Urine Bacteria (Auto ) NEGATIVE, Urine Squamous Epithelial Cells 3, Urine Sperm (Auto) 10/28/16 04:30: White Blood Count 10.0, Red Blood Count 3.21L, Hemoglobin 7.9L, Hematocrit 25.7L , Mean Corpuscular Volume 80.0, Mean Corpuscular Hemoglobin 24.5L, Mean Corpuscular Hemoglobin Concent 30.7L, Red Cell Distribution Width 17.1H, Platelet Count 156, Neutrophils (%) (Auto) 84.8H, Lymphocytes (%) (Auto) 4.4L, Monocytes (%) (Auto) 8.0H, Eosinophils (%) (Auto) 0.9, Basophils (%) (Auto) 0.2 , Neutrophils # (Auto) 8.5H, Lymphocytes # (Auto) 0.4L, Monocytes # (Auto) 0.8, Eosinophils # (Auto) 0.1, Basophils # (Auto) 0.0, Large Unclassified Cells % 1.7 , Large Unclassified Cells # 0.2, Anion Gap 8, Glomerular Filtration Rate 53.2, Blood Urea Nitrogen 22H, Creatinine 1.05H, Sodium Level 140, Potassium Level 3.6 , Chloride Level 108H, Carbon Dioxide Level 24, Calcium Level 8.4L, Phosphorus Level 3.1, Total Creatine Kinase 25L, Magnesium Level 1.8, Creatine Kinase MB 1.5, Creatine Kinase MB Relative Index 6.00H, Troponin I < 0.02, Aspartate Amino Transf (AST/SGOT) 8L, Alanine Aminotransferase (ALT/SGPT) 8L, Lactate Dehydrogenase 125, Alkaline Phosphatase 96, Total Bilirubin 0.5, Triglycerides Level 64, Cholesterol Level 134, Total Protein 6.3L, Albumin 2.8L, Albumin/ Globulin Ratio 0.80L CBC/BMP Laboratory Tests 10/27/16 18:35 Red Blood Count 3.85 L, Mean Corpuscular Volume 80.9, Mean Corpuscular Hemoglobin 23.6 L, Mean Corpuscular Hemoglobin Concent 29.2 L, Red Cell Distribution Width 16.9 H, Neutrophils (%) (Auto) 86.3 H, Lymphocytes (%) (Auto ) 3.3 L, Monocytes (%) (Auto) 6.9 H, Eosinophils (%) (Auto) 2.2, Basophils (%) ( Auto) 0.2, Neutrophils # (Auto) 9.6 H, Lymphocytes # (Auto) 0.4 L, Monocytes # ( Auto) 0.8, Eosinophils # (Auto) 0.2, Basophils # (Auto) 0.0 10/27/16 19:01 Calcium Level 8.9, Phosphorus Level 3.0, Total Creatine Kinase 30 10/28/16 04:30 Red Blood Count 3.21 L, Mean Corpuscular Volume 80.0, Mean Corpuscular Hemoglobin 24.5 L, Mean Corpuscular Hemoglobin Concent 30.7 L, Red Cell Distribution Width 17.1 H, Neutrophils (%) (Auto) 84.8 H, Lymphocytes (%) (Auto ) 4.4 L, Monocytes (%) (Auto) 8.0 H, Eosinophils (%) (Auto) 0.9, Basophils (%) ( Auto) 0.2, Neutrophils # (Auto) 8.5 H, Lymphocytes # (Auto) 0.4 L, Monocytes # ( Auto) 0.8, Eosinophils # (Auto) 0.1, Basophils # (Auto) 0.0, Calcium Level 8.4 L , Phosphorus Level 3.1, Total Creatine Kinase 25 L, Aspartate Amino Transf (AST/ SGOT) 8 L, Alanine Aminotransferase (ALT/SGPT) 8 L, Lactate Dehydrogenase 125, Alkaline Phosphatase 96, Total Bilirubin 0.5, Triglycerides Level 64, Cholesterol Level 134, Total Protein 6.3 L, Albumin 2.8 L Microbiology Microbiology 10/27/16 Blood Culture, Received Pending 10/27/16 Blood Culture, Received Pending 10/27/16 Group A Streptococcus Screen (RADHA), Received Pending 10/27/16 Influenza Virus Type A Antigen - Final, Complete 10/27/16 Influenza Virus Type B Antigen - Final, Complete 10/28/16 Urine Culture, Received Pending BINH ALBARADO October 28, 2016 08:24
[2016-10-28 22:00] LABS: RETIC HEMOGLOBIN CONTENT CHr 24.1 PG (24-36)
--- NOTE | 2016-10-28 23:15 | HPE ---
DATE OF ADMISSION: 10/28/2016 CHIEF COMPLAINT: Chest pain. HOP WORKER: Dr. Anthony Mckenzie This is an 86-year-old female with a history of hypertension, hypercholesterolemia, anemia, degenerative disc disease, congestive heart failure who began experiencing chest pressure. She has had it off and on over the last month, but it started today. It continued. It was much worse. She felt short of breath. Ambulance was called and she was brought to the emergency room. Patient received nitroglycerine sublingual in the ambulance en route. Upon arrival, blood pressure was 107/77, respirations were 24, temperature was 100.4, oxygen saturation was 96% on 2 liters. EKG was done. Patient was found to be in atrial fibrillation with a rapid ventricular response. Rate was varying between 140- 147. EKG showed atrial fibrillation with a rapid ventricular response, rate of 143. This was new since her EKG 07/13/2016. She was not in atrial fibrillation. Laboratory studies were drawn. White count was slightly elevated at 11.2, hemoglobin and hematocrit were 9.1 and 31.1, platelets were 182. Sodium was 140, potassium was slightly low at 3.0, chloride 105, CO2 of 27, BUN was 24, creatinine 1.1, nonfasting glucose 164, magnesium was 1.6. CPK was 30. CK-MB was 1.5. Troponin was less than 0.02. TSH was 1.38. Urine was clear. PH was 5.0. Influenza A and B were negative. Blood cultures were drawn. Chest x-ray was done. It showed chronic interstitial fibrosis, left lower lobe infiltrate, cardiomegaly. Patient's pressure decreased down to 86/56. Patient was given a fluid bolus of 500 mL in the emergency room. The emergency room (ER) doctor spoke with Dr. Leung. She was started on Rocephin and azithromycin for the pneumonia. Angiography CT was done, and there was no evidence of pulmonary emboli. Acute findings were cardiomegaly with pulmonary vascular congestion, moderate pleural effusions, and lingula and lower lobe atelectasis/consolidations. Patient's blood pressure improved to 96/63. Remained in atrial fibrillation with a rapid ventricular response. The emergency room physician discussed the case with Dr. Gómez, who recommended 150 mg intravenous (IV) of amiodarone and 0.25 of digoxin. Her rate improved to 88. Blood pressure remained stable at 94/60. Chest pain was resolved. She was less short of breath. Assessment was done, and patient will be admitted to the intensive care unit (ICU). Chest pain, rule out myocardial infarction (IL), atrial fibrillation with rapid ventricular response, congestive heart failure (CHF), and pneumonia. Patient will be admitted inpatient status for IV antibiotics. PRELIMINARY TREATMENT: Treatment of the CHF and stabilization of the atrial fibrillation. ALLERGIES: FUROSEMIDE. Patient states she gets more fluid. SOCIAL HISTORY: She is . She does not drink alcohol. She does not smoke cigarettes. PAST MEDICAL HISTORY: 1. Arthritis. 2. She had a fractured hip approximately a year ago. She did not have surgical repair. She walks with a walker. 3. History of hypercholesterolemia. 4. History of hypertension. 5. History of gout. 6. History of CHF. PAST SURGICAL HISTORY: 1. Complete hysterectomy. 2. Tonsillectomy. FAMILY HISTORY: Noncontributory. REVIEW OF SYSTEMS: No complaint of headache. No blurred or double vision. She has had chills. No tinnitus. No hoarseness. No difficulty swallowing. No lightheadedness. No vertigo. CARDIOVASCULAR: She denied chest pain, shortness of breath. No complaints of palpitations. Trace bilateral lower extremity edema. RESPIRATORY: No current cough. No sputum production, No hemoptysis. No orthopnea. No wheeze. GASTROINTESTINAL: No complaints of nausea, vomiting, or diarrhea. No hematochezia. No melena. No complaints of abdominal pain. GENITOURINARY: No hematuria, dysuria, or frequency. Musculoskeletal: History of arthritis. No joint redness or swelling. ENDOCRINE: No polyuria, polydipsia, polyphagia. HEMATOLOGICAL: She has had a history of anemia. NEUROLOGICAL: No history of seizures. No paresthesias, paralysis. PSYCHOLOGICAL: No anxiety, depression, or suicidal ideation. PHYSICAL EXAMINATION: An 86-year-old pleasant, cooperative female. Height 62 inches, weight 65.1 kg, body mass index (BMI) 26.3. Blood pressure 109/50, pulse 98, respirations 18. Patient is alert and oriented times three. Pupils equal and reactive to light. Extraocular movements (EOMs) intact. Cornea and sclerae clear. Conjunctivae are normal. No facial asymmetry. Pharynx, tongue, and gums pink and moist. Tongue is midline. Neck is supple without lymphadenopathy. No thyromegaly. No goiter. Carotids 2+ without bruit. Chest has scattered rhonchi. Decreased in the bases. No wheeze or retraction. Heart is irregular. Jugular venous pulse is 4-6 at 60 degrees. Abdomen is benign. Bowel sounds are positive. Rectal not done. Extremities show +1 bilateral lower extremity edema. Peripheral pulses equal and palpable bilaterally. Skin is warm and dry. IMPRESSION AND PLAN: Chest pain. Patient will be admitted to the ICU unit. 1. Chest pain, rule out myocardial infarction (IL). 2. Atrial fibrillation with rapid ventricular response. Rate is now 80s to 90s. She has had amiodarone 150 intravenous (IV) as well as digoxin. 3. Congestive heart failure (CHF). Recommend continuing her IV Bumex. 4. Pneumonia. Continue antibiotics. DuoNeb treatments. 5. Will obtain cardiology consult. Lovenox subcutaneous. 6. Monitor hemoglobin and hematocrit. Recheck in the morning. 7. Hypertension.Anti Hypertensives will be held at this time secondary to lower BP Monitor closely. Serial enzymes. Repeat EKG in morning. Patient will be on panel monitor. MTDD
[2016-10-29] VITALS (7 sets, daily range): BP systolic 108–137; BP diastolic 64–75
[2016-10-29] MEDS: ACETAMINOPH W/CODEINE #3 TAB UD PO PRN ×3 (00:04→18:05)
[2016-10-29] MEDS: BUMETANIDE 1 MG/4 ML INJ (S0171) IV SCH ×2 (05:25→17:58)
[2016-10-29 06:30] LABS: MAGNESIUM LEVEL 1.8 MG/DL (1.8-2.4)
[2016-10-29 07:36] LABS: MEAN CORPUSCULAR HEMOGLOBIN 23.5 pg (27.0-33.0); MEAN CORPUSCULAR HGB CONC 28.9 g/dl (32.0-36.5); MEAN CORPUSCULAR VOLUME 81.4 fl (80.0-96.0); WHITE BLOOD COUNT 7.5 K/mm3 (4.0-10.0)
[2016-10-29 07:37] LABS: CALCIUM LEVEL 9.1 MG/DL (8.8-10.2); CREATININE FOR GFR 1.06 MG/DL (0.55-1.02); GLOMERULAR FILTRATION RATE 52.6 (>32); POTASSIUM SERUM 3.5 MEQ/L (3.5-5.1)
[2016-10-29] MEDS: IPRATROPIUM 0.5MG/ALBUTEROL 2.5MG INH SOL UD 3ML (DUONEB)(J7620) NEB SCH ×4 (07:53→20:00)
[2016-10-29] MEDS ORDERED: POTASSIUM CHLORIDE 10 MEQ SR TABLET PO ONE (08:30)
[2016-10-29] MEDS ORDERED: MAGNESIUM OXIDE 400 MG TAB (MAG-OX) PO ONE (08:30)
--- NOTE | 2016-10-29 08:43 | IPNPDOC ---
Date Seen The patient was seen on 10/29/16. Progress Note SUBJECTIVE: Ms. Hernandez is an 86-year-old female who is examined at bedside this morning. She was completing breakfast at the time of this evaluation. She states that she is feeling much better and is actually sitting bedside in a chair. She denies nausea and vomiting, abdominal pain, hematemesis , hematochezia, melena. Awaiting a bowel movement to evaluate the stool for occult blood. Does have some iron deficiency; however, iron studies were within normal limits. Hemoglobin has improved slightly to 8 this morning. Patient remains tachycardic on Cardizem. Have added metoprolol since patient's blood pressure has improved significantly. OBJECTIVE PHYSICAL EXAMINATION: VITAL SIGNS: Please see below. GENERAL: Elderly female sitting bedside upon evaluation this morning, appears stated age, in no apparent distress HEENT: Atraumatic, normocephalic, PERRL, EOMI, oral mucosa appears pink and moist, nasal septum appears midline, periorbital edema noted bilaterally CARDIOVASCULAR: Irregularly irregular heart rate and rhythm, normal S1 and S2, no murmur, click, rub RESPIRATORY: Clear to auscultation bilaterally, adequate inspiratory and expiratory airway excursion, no wheeze, rhonchi, crackles ABDOMINAL: Soft, nontender, nondistended, bowel sounds appreciated EXTREMITIES: Moving all 4 extremities appropriately, radial pulses appreciated bilaterally, regular, symmetrical +2/4; lower extremity pulses appreciated bilaterally, venous stasis skin changes noted on lower extremities bilaterally, pitting edema appreciated bilaterally in lower extremities NEUROLOGICAL: Cranial nerves II through XII appear grossly intact PSYCHOLOGICAL: Mood and affect appear appropriate LABORATORY DATA: Please see below. MICROBIOLOGY: Please see below. DVT prophylaxis ordered?: Lovenox 40 mg subcutaneous daily ASSESSMENT AND PLAN: This David is an 86-year-old female who presented with chest pain and was found to have atrial fibrillation with rapid ventricular response as well as some possible underlying pleural effusions and possible community-acquired pneumonia. PROBLEMS: 1. Atrial fibrillation: Patient continues on Cardizem 30 mg every 6 hours. Patient's blood pressure this morning was 135/64. Have added metoprolol to patient's regimen in order to control rapid ventricular response. Willams catheter was inserted yesterday and patient has had a negative fluid balance of 685 mL of the last 24 hours. Patient remains on Lovenox. H&H was 8 and 27.9, respectively. This is slightly improved from yesterday. We'll continue to monitor CBC. Patient has a remote history of atrial fibrillation approximately 2 years ago. Discussed with gambling cashier at that time and the recommendation was for patient to remain on aspirin 325 mg daily to treat be sufficient for anticoagulation. Patient has been started on aspirin 325 mg daily. Continues with Lovenox for DVT prophylaxis. Cardiology consult obtained. Iron was low at 13; however, TIBC, transferrin, and ferritin were all within normal range. Awaiting bowel movement for stool evaluation for occult blood. Patient has been started on ferrous sulfate 325 mg daily. 2. Anemia: Patient reports a history of anemia and was on iron supplementation. H&H is morning was 8 and 27.9, respectively. We'll continue to monitor daily CBC. Iron was low at 13; however, TIBC, transferrin, and ferritin were all within normal range. She continues to deny hematemesis, melena, hematochezia. H/ H is 7.9 and 25.7, respectively. Could consider blood transfusion. Discussed consent. Could be dilutional or occult bleeding. Will monitor. Patient denies complaints. Will obtain iron studies (iron, total iron-binding capacity, transferrin, ferritin) and reticulocyte count was normal. Will also obtain stool for occult blood. Patient has been started on ferrous sulfate 325 mg daily. 3. Diastolic congestive heart failure: Chest x-ray reports atelectasis and/or consolidation. Patient remains on ceftriaxone for possible underlying CAP. Influenza swab was negative. 4. Chronic kidney disease: BUN and Creatinine is 22 and 1.06, respectively. Likely secondary to underlying heart failure and atrial fibrillation. Continue to monitor with daily BMP. 5. Hypertension: Current bedside BP is 135/64. Patient's metoprolol has been added secondary to continued rapid ventricular response secondary to atrial fibrillation. Patient is also on Cardizem 30 mg every 6 hours. 6. Dyslipidemia: Continue on current home medication regimen. 7. Gout: Continue on current home medication regimen. DISPOSITION: Patient will be transferred to the progressive care unit. Patient continues to improve. Lung evaluation physical exam sounds significantly improved. Remains on bumetanide and had a negative fluid balance of 695 mL the last 24 hours. H&H. Very mildly improved. We'll continue to monitor CBC. Atrial fibrillation with rapid ventricular response being managed with Cardizem and metoprolol. Patient is also been started on aspirin 325 mg daily. Her prior gambling cashier recommendation for remote history of atrial fibrillation patient was advised that aspirin would be sufficient for anticoagulation. Cardiology consult has been obtained for this current admission. Iron was low at 13. Other iron studies were within normal range. Patient has been started on ferrous sulfate 325 mg daily. VS, I&O, 24H, Fishbone Vital Signs/I&O Vital Signs Date Time Temp Pulse Resp B/P (MAP) Pulse Ox O2 Delivery O2 Flow Rate FiO2 10/29/16 08:00 99.1 127 22 135/64 (87) 95 Nasal Cannula 1.0 I&O- Last 24 Hours up to 6 AM 10/29/16 06:00 Intake Total 650 ml Output Total 1385 ml Balance -735 ml Laboratory Data 24H LABS Laboratory Tests 2 10/28/16 13:09: Total Creatine Kinase 28, Creatine Kinase MB 1.0, Creatine Kinase MB Relative Index 3.57, Troponin I < 0.02 10/28/16 14:28: Transferrin 230 10/28/16 17:13: Absolute Reticulocyte Count 73, Percent Reticulocyte Count 2.00H, Reticulocyte Hgb Content (CHr) 24.1 10/29/16 06:03: Anion Gap 11, Glomerular Filtration Rate 52.6, Blood Urea Nitrogen 22H, Creatinine 1.06H, Sodium Level 143, Potassium Level 3.5, Chloride Level 107, Carbon Dioxide Level 25, Calcium Level 9.1, Magnesium Level 1.8 CBC/BMP Laboratory Tests 10/28/16 17:18 10/29/16 06:02 Red Blood Count 3.42 L, Mean Corpuscular Volume 81.4, Mean Corpuscular Hemoglobin 23.5 L, Mean Corpuscular Hemoglobin Concent 28.9 L, Red Cell Distribution Width 17.0 H 10/29/16 06:03 Calcium Level 9.1 Microbiology Microbiology 10/27/16 Blood Culture - Preliminary, Resulted No growth after 24 hours . All specim... 10/27/16 Blood Culture - Preliminary, Resulted No growth after 24 hours . All specim... 10/27/16 Group A Streptococcus Screen ([facility]), Received Pending 10/27/16 Influenza Virus Type A Antigen - Final, Complete 10/27/16 Influenza Virus Type B Antigen - Final, Complete 10/28/16 Urine Culture, Received Pending BINH ALBARADO-Analy October 29, 2016 08:43
[2016-10-29] MEDS: ENOXAPARIN 40 MG/0.4 ML SYRINGE (J1650) SC SCH (08:51)
[2016-10-29] MEDS: cefTRIAXone SOD 1 GM in D5W MINI-BAG PLUS 50 ML IV SCH (08:51)
[2016-10-29] MEDS: ALLOPURINOL 300 MG TAB PO SCH (08:52)
[2016-10-29] MEDS: ASPIRIN 325 MG TAB PO SCH (08:52)
[2016-10-29] MEDS: METOPROLOL TART 50 MG TAB PO SCH ×2 (08:54→20:31)
[2016-10-29] MEDS: FERROUS SULFATE 325MG TAB PO SCH (11:18)
[2016-10-29] MEDS: EZETIMIBE 10 MG TAB (ZETIA) PO SCH (20:31)
[2016-10-29] MEDS: FOLIC ACID 1 MG TAB PO SCH (20:32)
[2016-10-30] VITALS (7 sets, daily range): BP systolic 113–147; BP diastolic 67–93; PULSE 105
[2016-10-30] MEDS: BUMETANIDE 1 MG/4 ML INJ (S0171) IV SCH ×2 (05:26→18:38)
[2016-10-30] MEDS: ACETAMINOPH W/CODEINE #3 TAB UD PO PRN ×2 (05:28→20:46)
[2016-10-30 05:57] LABS: MEAN CORPUSCULAR HEMOGLOBIN 23.4 pg (27.0-33.0); MEAN CORPUSCULAR HGB CONC 28.7 g/dl (32.0-36.5); MEAN CORPUSCULAR VOLUME 81.5 fl (80.0-96.0); WHITE BLOOD COUNT 6.5 K/mm3 (4.0-10.0)
[2016-10-30 06:21] LABS: CALCIUM LEVEL 8.8 MG/DL (8.8-10.2); CREATININE FOR GFR 1.04 MG/DL (0.55-1.02); GLOMERULAR FILTRATION RATE 53.7 (>32); POTASSIUM SERUM 3.8 MEQ/L (3.5-5.1)
[2016-10-30] MEDS ORDERED: POTASSIUM CHLORIDE 10 MEQ SR TABLET PO ONE (07:30)
[2016-10-30] MEDS: cefTRIAXone SOD 1 GM in D5W MINI-BAG PLUS 50 ML IV SCH (08:17)
[2016-10-30] MEDS: ENOXAPARIN 40 MG/0.4 ML SYRINGE (J1650) SC SCH (08:18)
[2016-10-30] MEDS: ASPIRIN 325 MG TAB PO SCH (08:19)
[2016-10-30] MEDS: ALLOPURINOL 300 MG TAB PO SCH (08:20)
[2016-10-30] MEDS: METOPROLOL TARTRATE 100 MG TAB PO SCH ×2 (08:20→20:47)
[2016-10-30] MEDS: FERROUS SULFATE 325MG TAB PO SCH (08:20)
--- NOTE | 2016-10-30 09:08 | IPNPDOC ---
Date Seen The patient was seen on 10/30/16. Progress Note SUBJECTIVE: Mrs. Hernandez is an 86-year-old female who is evaluated bedside this morning. She is being transferred to the progressive care unit in room 3211. Physical therapy and a community health nursing director are present during my evaluation. Patient states that she is feeling much better and that she sat up all of yesterday. Patient has not had a bowel movement, but states that she is passing flatus. No other concerns at this time. Could consider transitioning patient to all antibiotics as white count has normalized. OBJECTIVE PHYSICAL EXAMINATION: VITAL SIGNS: Please see below. GENERAL: Elderly female sitting comfortably in hospital bed upon evaluation this morning, appears stated age, in no apparent distress HEENT: Atraumatic, normocephalic, PERRL, EOMI, oral mucosa appears pink and moist, nasal septum appears midline, periorbital edema present CARDIOVASCULAR: Irregularly irregular heart rate and rhythm, normal S1 and S2, no murmur, rub, click RESPIRATORY: Coarse breath sounds noted throughout, adequate inspiratory and expiratory airway excursion, no wheeze, rhonchi, crackles ABDOMINAL: Soft, nontender, nondistended, bowel sounds diminished throughout EXTREMITIES: Moving all 4 extremities appropriately, venous stasis skin changes noted on the lower extremities bilaterally, peripheral pulses appreciated in the upper and lower extremities bilaterally, equal, symmetric, +2/4, mild pitting edema noted in the lower extremities NEUROLOGICAL: Cranial nerves II through XII grossly intact PSYCHOLOGICAL: Mood and affect appear appropriate LABORATORY DATA: Please see below. MICROBIOLOGY: Please see below. DVT prophylaxis ordered?: Lovenox 40 mg subcutaneous daily ASSESSMENT AND PLAN: Ms. Hernandez is an 86-year-old female who presented with chest pain and was found to have atrial fibrillation with rapid ventricular response as well as some possible underlying pleural effusions and possible community-acquired pneumonia. PROBLEMS: 1. Atrial fibrillation with rapid ventricular response: Patient's metoprolol has been increased 100 mg twice a day. Continues on Cardizem 30 mg every 6 hours. Likely discuss case with cardiology. Recommendations include amiodarone 400 mg twice a day and Eliquis for anticoagulation. Advised that aspirin is not an effective anticoagulant and can this be discontinued. Blood pressures 137/93 with a heart rate of 81. 2. Community-acquired pneumonia: Presentation patient appears to have underlying pneumonia. Started on intravenous ceftriaxone. Patient's white count has since normalized. Could consider transitioning patient to all antibiotics. 3. Anemia, iron deficient: Hemoglobin and hematocrit are 8.2 and 28.5, respectively. This appears to be patient's baseline. Patient has yet to produce the bowel movement for stool occult blood. Continue with ferrous sulfate 325 mg daily for iron deficiency. Per cardiology recommendation started patient on Eliquis 2.5 mg daily. May discontinue aspirin as an effective anticoagulant. 4. Decompensated diastolic congestive heart failure: Trace pitting edema still noted on lower extremities bilaterally. Patient states that her breathing has improved. Patient had negative fluid balance of 390 mL overnight. Her catheter in place to monitor urine output. Patient remains on Bumex. 5. Chronic kidney disease: BUN and Creatinine is 23 and 1.04, respectively. This appears to be patient's baseline. Continue to monitor with daily BMP. 6. Hypertension: Blood pressure this morning was 137/93. Patient's metoprolol has been increased 100 mg twice a day due to continued rapid ventricular response secondary to atrial fibrillation. Patient is also on Cardizem 30 mg every 6 hours for atrial fibrillation with rapid response. 7. Dyslipidemia: Continue on current home medication regimen. 8. Gout: Continue on current home medication regimen. DISPOSITION: Patient has been transferred to the progressive care unit. She appears to make improvements on a daily basis. Physical therapy was in the room upon evaluation this morning. Adjustments made to metoprolol for rapid ventricular response secondary to atrial fibrillation. Per cardiology recommendations have added amiodarone and Eliquis. Have discontinued aspirin. Patient still has Willams catheter in place for her strict monitoring parameters of urine output. Patient remains on Bumex for decomp stated diastolic congestive heart failure. Kidney function appears to be at baseline. White count has normalized. Could consider adjusting intravenous antibiotics to oral antibiotics. VS, I&O, 24H, Fishbone Vital Signs/I&O Vital Signs Date Time Temp Pulse Resp B/P (MAP) Pulse Ox O2 Delivery O2 Flow Rate FiO2 10/30/16 08:20 81 137/93 10/30/16 07:30 Room Air 10/30/16 06:25 18 10/30/16 04:00 98.0 96 10/29/16 18:37 1.0 I&O- Last 24 Hours up to 6 AM 10/30/16 05:59 Intake Total 1130 ml Output Total 1470 ml Balance -340 ml Laboratory Data 24H LABS Laboratory Tests 2 10/30/16 05:00: Anion Gap 8, Glomerular Filtration Rate 53.7, Blood Urea Nitrogen 23H, Creatinine 1.04H, Sodium Level 142, Potassium Level 3.8, Chloride Level 108H, Carbon Dioxide Level 26, Calcium Level 8.8 CBC/BMP Laboratory Tests 10/30/16 05:00 Red Blood Count 3.50 L, Mean Corpuscular Volume 81.5, Mean Corpuscular Hemoglobin 23.4 L, Mean Corpuscular Hemoglobin Concent 28.7 L, Red Cell Distribution Width 17.0 H, Calcium Level 8.8 Microbiology Microbiology 10/27/16 Blood Culture - Preliminary, Resulted No Growth after 48 hours. All Specime... 10/27/16 Blood Culture - Preliminary, Resulted No Growth after 48 hours. All Specime... 10/30/16 Gram Stain - Final, Resulted 10/30/16 Sputum Culture, Resulted Pending 10/27/16 Group A Streptococcus Screen ([facility]) - Final, Complete 10/27/16 Influenza Virus Type A Antigen - Final, Complete 10/27/16 Influenza Virus Type B Antigen - Final, Complete 10/28/16 Urine Culture - Final, Complete BINH ALBARADO October 30, 2016 09:08
[2016-10-30] MEDS: APIXABAN 2.5 MG TAB (ELIQUIS) PO SCH ×2 (10:50→20:46)
[2016-10-30] MEDS: AMIODARONE 200 MG TAB (PACERONE) PO SCH ×2 (10:50→20:46)
[2016-10-30] MEDS ORDERED: SLF 3 ML SYR IV PRN (11:00)
[2016-10-30] MEDS: ASCORBIC ACID 250 MG TAB PO SCH ×2 (12:47→20:46)
[2016-10-30] MEDS: SLF 3 ML SYR IV SCH ×2 (12:48→21:35)
[2016-10-30] MEDS: DOCUSATE SODIUM 100 MG CAP PO SCH ×2 (12:48→20:45)
[2016-10-30] MEDS: FOLIC ACID 1 MG TAB PO SCH (20:46)
[2016-10-30] MEDS: EZETIMIBE 10 MG TAB (ZETIA) PO SCH (20:46)
--- NOTE | 2016-10-30 21:01 | CR ---
DATE OF CONSULTATION: 10/30/2016 REFERRING PHYSICIAN: Dr. Driscoll INDICATION: Difficult to control atrial fibrillation. HISTORY OF PRESENT ILLNESS: Mrs. Hernandez is previously unknown to me. She is a pleasant 86-year-old female who follows from [facility] with Dr. Mckenzie in [place]. She came to [facility] on 10/27/2016 by ambulance because of sensation of palpitations, dyspnea and chest discomfort. The dyspnea was the dominant symptom. She did have a sensation of palpitations, principally in her back. While in emergency room she was found to be in atrial fibrillation with rapid ventricular response, which is new findings to her. To the best of my understanding there is no history of atrial fibrillation, even though she tells me that she had one episode about 2 years ago when she was seen in [place] for surgical evaluation. The heart rate was in 140s and 150s on presentation and her blood pressure was relatively soft. She initially got bolus of 150mg amiodarone IV plus 0.25 mg of digoxin, which led to slowing of her heart rate, but when the effect of medication subsided she became tachycardiac again. She was initially treated with Cardizem by mouth and eventually metoprolol was added. As of today, she was on 100 twice a day of metoprolol +30 every 6 hours Cardizem and yet her heart rate remained quite tachycardiac; on average about 120s. I was asked by the team to see the patient. On my evaluation, she tells me that she is feeling much better. The initial dyspnea is essentially resolved and she feels comfortable at rest. She has not done much ambulation yet. She denies any chest discomfort now but she does admit that she had some discomfort prior to coming to the hospital; mostly localized to her back. She believes that she has had palpitations on and off for about 2 or 3 weeks. At the time of my evaluation she is in good spirits. She is able to provide decent history, even though the factual information is probably not completely accurate. At the time of my history she denies any shortness of breath or chest pain. PAST MEDICAL HISTORY: 1. Longstanding history of hypertension. 2. Diastolic congestive heart failure, she had an echocardiogram in our facility in June of this year that revealed ejection fraction (EF) around 60%. Grade 1 diastolic dysfunction. Mild aortic stenosis and small pericardial effusion. 3. Gout. 4. Dyslipidemia. 5. Chronic anemia according to the patient all her adult life. She has been on supplemental iron at least several decades. 6. Degenerative joint disease. PAST SURGICAL HISTORY: Positive for hysterectomy and tonsillectomy. SOCIAL HISTORY: The patient is . She does not drink and never smoked. FAMILY HISTORY: No longer relevant considering her age, but she denies any first-degree relatives with early coronary artery disease. OUTPATIENT MEDICATIONS: - Codeine 3 - allopurinol 300 a day - aspirin 325 a day - Bumex 1 mg twice a day - Zetia 10 mg a day - folic acid 1 mg a day - hydralazine 50 mg twice a day - labetalol 200 mg twice a day - losartan 50 mg once a day REVIEW OF SYSTEMS: On review of systems she denies history of stroke. She denies any recent fever, chills, but she felt unwell, had some cough and probably had some upper respiratory infection. No prior chest pain. She does recall that she had heart catheterization approximately 2 years ago in [facility] and reportedly had no coronary artery disease. No abdominal pain, diarrhea, nausea, vomiting, no genitourinary symptoms. She denies any history of bleeding. Specifically no epistaxis. No melena or hemoptysis. No blood in her urine and she has had chronic mild peripheral edema to variable degree. PHYSICAL EXAMINATION: Mrs. Hernandez is an elderly female, pleasant, alert and oriented. She appears to be mildly short of short of breath when she talks in a long sentences, but generally comfortable. Blood pressure this morning was 116/76, heart rate 120s and 30s. She was afebrile. Saturation was 97% on room air. Her documented weight was 62.7 kg. Her jugular venous pressure is very high, at least 6 or 7 cm above clavicle in semi-sitting position. No carotid bruits. Lungs are clear to auscultation in upper segments but there are diminished breath sounds over both bases and I assume bilateral pleural effusions did not change any since admission. Heart: Exam reveals irregular tachycardia. There is a musical systolic murmur, best heard throughout the whole precordium, but probably the loudest at the apex about 3-4/6 intensity. There is no distinct radiation to carotid arteries. Abdomen is soft, nontender. There is about 1+ peripheral edema. Neurologically there is generalized weakness but otherwise no focal findings. No skin lesions. LABORATORY: Her CBC as of this morning, WBC count 6.5, hemoglobin is 8.2, hematocrit 28, platelet count 180,000 and basic metabolic panel, potassium 3.8, BUN 23, creatinine 1, glucose 136. She is iron deficient. Her iron was only 13 with TIBC 102. Saturation only 4%. Normal liver function test. Normal CK, CK-MB and troponin. Her BNP was only 6 as of 2 days ago. Chest x-ray is consistent with bilateral pleural effusions, more on the right than left and vascular distribution. CT of the chest to confirm basically the same. There is possible infiltrate or consolidation in lingula. ECG on admission reveals atrial fibrillation with rapid ventricular response. There is low voltage and nonspecific ST-T abnormalities and occasional premature ventricular contractions (PVCs). She had an echocardiogram in June as above, but no one during current admission. ASSESSMENT/PLAN Mrs. Hernandez is 86-year-old female who comes with dyspnea, chest pain and atrial fibrillation with rapid ventricular response (RVR). She is still not well rate-controlled and consequently I introduced amiodarone to her regimen. I will start her only on oral dosing 400 twice a day and will adjust the dose of beta jonathan and Cardizem depending on her response. I had a long discussion with her and explained that she is not protected from stroke by aspirin. Consequently, will give her apixaban. She is somewhat borderline as far as the dosing is concerned, she is relatively light with weight just slightly over 60 kg and she is also over 80 years of age and consequently I give her only 2.5 mg twice a day. She is also quite anemic, which concerns me and is iron deficient, but she claimed that she had colonoscopy and EGD in the past and no significant pathology was found. Obviously will provide her with iron supplement and obtain stool for occult blood. Because I started her on Eliquis I am going to discontinue aspirin and Lovenox. As far as her edema and the pleural effusions are concerned, even though her BNP is low, I am still quite suspicious that she has congestive heart failure. She is on Bumex as an outpatient and continues to receive it in the hospital. I will continue the same, but will obtain an echocardiogram even though she had one 3 months ago, I am quite concerned about her markedly elevated JVP for which I do not have a distinct explanation. I just want to make sure that she does not have pericardial disease or restrictive heart disease. I will continue following the patient with you. I am hoping that her condition will improve, but she is quite elderly and frail and certainly I consider her prognosis somewhat guarded. TD
[2016-10-31 05:32] VITALS: BP 122/74
[2016-10-31 05:54] LABS: MEAN CORPUSCULAR HEMOGLOBIN 23.7 pg (27.0-33.0); MEAN CORPUSCULAR HGB CONC 28.4 g/dl (32.0-36.5); MEAN CORPUSCULAR VOLUME 83.4 fl (80.0-96.0); RED CELL DISTRIBUTION WIDTH 16.9 % (11.5-14.5); WHITE BLOOD COUNT 7.8 K/mm3 (4.0-10.0)
[2016-10-31] MEDS: BUMETANIDE 1 MG/4 ML INJ (S0171) IV SCH ×2 (05:57→17:46)
[2016-10-31] MEDS: SLF 3 ML SYR IV SCH ×3 (05:58→21:17)
[2016-10-31 06:16] LABS: CALCIUM LEVEL 8.9 MG/DL (8.8-10.2); CREATININE FOR GFR 1.21 MG/DL (0.55-1.02); GLOMERULAR FILTRATION RATE 45.1 (>32); POTASSIUM SERUM 4.3 MEQ/L (3.5-5.1)
[2016-10-31 08:00] VITALS: BP 146/74
--- NOTE | 2016-10-31 08:37 | IPN ---
DATE: 10/31/2016 Mrs. Hernandez tells me that she was aggravated yesterday because there were some pain in her bladder. Eventually, the Willams catheter was removed. She feels much better today. Otherwise, she tells me that she still feels tired but she is not short of breath at rest and she denies any chest discomfort. She has no sensation of palpitations. Her heart rate has improved somewhat. At night, there were some episode when she slowed down into 60s, but for the most part remained around 100, 110 beats per minute, but this represents significant improvement from previous days. Blood pressure 122/74, heart rate as above. She is afebrile. Saturation 95% on room air. Fluid balance yesterday was about 1200 negative. Weight is 62. She is alert and oriented, very talkative, very pleasant. Jugular venous pulse (JVP ) is very high, at least 6-7 cm above clavicle. I do not appreciate any change since yesterday. Lungs still reveal diminished breath sounds over both bases but clear above. Heart exam reveals irregular tachycardia. There is a musical high-pitched murmur best heard over the apical segments and in the axilla. Abdomen is soft, nontender. There is about 1+ peripheral edema. Laboratory still, CBC reveals hemoglobin 8.8, hematocrit 30.9, platelets 247, WBC count 7.8 and basic metabolic panel, potassium 4.3, BUN 28, creatinine 1.24, GFR 45 and glucose 117. ASSESSMENT AND PLAN: Mrs. Hernandez is an 86-year-old female who carries no history of prior coronary artery disease and presented with atrial fibrillation with rapid ventricular response. She has been somewhat challenging to rate control and currently is on metoprolol 100 twice a day, plus Cardizem 30 every 6. I started on amiodarone and Eliquis yesterday. I think we will continue the same management. It has been only 1 day since the dose of metoprolol was increased and it is likely that the effects will continue to improve. Also, the amiodarone will slowly penetrate her system and will start being more effective. I am hoping that within next day or two we will accomplish reasonable rate control. She was very reluctant to consider anticoagulation and apparently had a discussion with Dr. Singer, who was in yesterday after I met with the patient. She would not take the blood thinner. But today she tells me that she reconsidered and she will take it. I do expect that she will stay in monitored bed for at least 2 or 3 more days. I am also expecting the results of echocardiogram today. She has very low brain natriuretic peptide (BNP), which is kind of surprising to me as she has peripheral edema and very high JVP. Consequently, I want to make sure that she does not have pericardial effusion, even though from CT scan it does not seem likely. TD
[2016-10-31] MEDS: FERROUS SULFATE 325MG TAB PO SCH (08:41)
[2016-10-31] MEDS: AMIODARONE 200 MG TAB (PACERONE) PO SCH ×2 (08:42→21:16)
[2016-10-31] MEDS: APIXABAN 2.5 MG TAB (ELIQUIS) PO SCH ×2 (08:42→21:11)
[2016-10-31] MEDS: ALLOPURINOL 300 MG TAB PO SCH (08:42)
[2016-10-31] MEDS: ASCORBIC ACID 250 MG TAB PO SCH ×2 (08:42→21:10)
[2016-10-31] MEDS: ACETAMINOPH W/CODEINE #3 TAB UD PO PRN ×2 (08:42→19:48)
[2016-10-31] MEDS: DOCUSATE SODIUM 100 MG CAP PO SCH ×2 (08:42→21:11)
[2016-10-31] MEDS: METOPROLOL TARTRATE 100 MG TAB PO SCH ×2 (08:43→21:10)
--- NOTE | 2016-10-31 11:32 | IPNPDOC ---
Date Seen The patient was seen on 10/31/16. Progress Note SUBJECTIVE: This is an 86-year-old female who is evaluated bedside this morning. She is sitting up in a chair paying her bills. She reports that both cardiology and hospitalist attending have been in to see her. She reports that she did have an episode of tachycardia and a "coughing fit "overnight. She also reports that her Willams catheter fell out last evening. She reports no other concerns at this time. Cardiology recommended an echocardiogram, which is pending. Anemia appears improved. We'll continue to monitor patient for tachycardia. Patient continues to deny shortness of breath. OBJECTIVE PHYSICAL EXAMINATION: VITAL SIGNS: Please see below. GENERAL: Elderly female sitting comfortably upon evaluation this morning, appears stated age, in no apparent distress HEENT: Atraumatic, normocephalic, PERRL, EOMI, oral mucosa appears moist, nasal septum appears midline, periorbital edema appreciated bilaterally CARDIOVASCULAR: Irregularly irregular heart rate and rhythm, normal S1 and S2, no murmur, rub, click appreciated RESPIRATORY: Clear to auscultation bilaterally, adequate inspiratory and expiratory airway excursion, no wheeze, rhonchi, crackles appreciated ABDOMINAL: Soft, nontender, nondistended, bowel sounds appreciated EXTREMITIES: Moving all 4 extremities appropriately, pulses appreciated upper and lower extremities bilaterally, equal, symmetrical, +2/4, trace peripheral edema noted in the lower extremities, venous stasis skin changes over lower extremities bilaterally NEUROLOGICAL: Cranial nerves II through XII grossly intact PSYCHOLOGICAL: Mood and affect appear appropriate LABORATORY DATA: Please see below. MICROBIOLOGY: Please see below. Echocardiogram: Pending DVT prophylaxis ordered?: Eliquis 2.5 mg ASSESSMENT AND PLAN: Ms. Hernandez is an 86-year-old female who presented with chest pain and was found to have atrial fibrillation with rapid ventricular response as well as some possible underlying pleural effusions and possible community-acquired pneumonia. PROBLEMS: 1. Atrial fibrillation with rapid ventricular response: Patient's blood pressure 146/74 with a heart rate of 110. Patient remains on diltiazem 30 mg every 6 hours, metoprolol 100 mg twice a day, amiodarone 400 mg twice a day, and Eliquis 2.5 mg twice a day. Cardiology continues to follow along. Their recommendations included echocardiogram. Also recommended that aspirin and Lovenox be discontinued since patient is now on Eliquis. 2. Community-acquired pneumonia: Patient reports shortness of breath has improved. White count is 7.8. Antibiotics have been discontinued at this time. 3. Anemia, iron deficient: Hemoglobin and hematocrit continue to improve and on 8.8 and 30.9, respectively. Patient did have a very small bowel movement, but unfortunately was not enough to test for occult blood. Patient remains on Colace and vitamin C for constipation. 4. Decompensated diastolic congestive heart failure: This has been present since admission. Trace pitting edema noted in bilateral lower extremities with venous stasis skin changes. Patient remains on Bumex 1 g daily. Patient and negative fluid balance of 1265 mL overnight. Willams catheter fell out last night. 5. Chronic kidney disease: BUN and Creatinine is 28 and 1.21, respectively. This appears to be patient's baseline. Continue to monitor with daily BMP. 6. Hypertension: Blood pressure this morning was 146/74. Patient is continued on diltiazem 30 mg every 6 hours and metoprolol 100 mg twice a day. 7. Dyslipidemia: Continue on current home medication regimen. 8. Gout: Continue on current home medication regimen. DISPOSITION: Patient's heart rate is still not adequately controlled. Remains on diltiazem, metoprolol, and amiodarone. She continues to be on telemetry monitoring. Shortness of breath is improved and white count has normalized. Anemia is improving. Waiting for adequate bowel movement to test for occult blood. Kidney function appears to be at baseline. Blood pressure is stable. Continue to monitor patient. Cardiology is recommended an echocardiogram. VS, I&O, 24H, Fishbone Vital Signs/I&O Vital Signs Date Time Temp Pulse Resp B/P (MAP) Pulse Ox O2 Delivery O2 Flow Rate FiO2 10/31/16 08:43 110 146/74 10/31/16 08:42 20 10/31/16 08:15 Room Air 10/31/16 08:00 97.6 94 10/29/16 18:37 1.0 I&O- Last 24 Hours up to 6 AM 10/31/16 06:00 Intake Total 710 ml Output Total 1550 ml Balance -840 ml Laboratory Data 24H LABS Laboratory Tests 2 10/31/16 05:05: Anion Gap 8, Glomerular Filtration Rate 45.1, Blood Urea Nitrogen 28H, Creatinine 1.21H, Sodium Level 142, Potassium Level 4.3, Chloride Level 106, Carbon Dioxide Level 28, Calcium Level 8.9 CBC/BMP Laboratory Tests 10/31/16 05:05 Red Blood Count 3.70 L, Mean Corpuscular Volume 83.4, Mean Corpuscular Hemoglobin 23.7 L, Mean Corpuscular Hemoglobin Concent 28.4 L, Red Cell Distribution Width 16.9 H, Calcium Level 8.9 Microbiology Microbiology 10/27/16 Blood Culture - Preliminary, Resulted No Growth after 72 hours. All specime... 10/27/16 Blood Culture - Preliminary, Resulted No Growth after 72 hours. All specime... 10/30/16 Gram Stain - Final, Resulted 10/30/16 Sputum Culture, Resulted Pending 10/27/16 Group A Streptococcus Screen (RADHA) - Final, Complete 10/27/16 Influenza Virus Type A Antigen - Final, Complete 10/27/16 Influenza Virus Type B Antigen - Final, Complete 10/28/16 Urine Culture - Final, Complete BINH ALBARADO October 31, 2016 11:32
[2016-10-31 12:09] VITALS: BP 121/79
[2016-10-31 16:00] VITALS: BP 128/75
--- NOTE | 2016-10-31 18:03 | ECGEPIP ---
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
--- NOTE | 2016-10-31 18:48 | ECGEPIP ---
Stationary ECG Study [facility] Test Date: 2016-10-31 Pat Name: KATT PENN Department: Room: [place] [address] Gender: F Director Account Management: RAINA : 1930 Requested By: Alphonse Saravia Order Number: [id number] Reading MD: Dickson Gómez Measurements Intervals [place] Rate: 100 P: [place]: 0 QRS: 33 QRSD: 93 T: -60 QT: 298 QTc: 385 Interpretive Statements ATRIAL FIBRILLATION WITH RAPID VENTRICULAR RESPONSE WITH ABERRANT CONDUCTION OR VENTRICULAR PREMATURE COMPLEXES LOW QRS VOLTAGE IN EXTREMITY LEADS POSSIBLE ANTERIOR MYOCARDIAL INFARCTION, OF INDETERMINATE AGE VS POOR R WAVE PROGRESSION LAST EKG ON 10/29/2016 AT 12:00:15, THERE WAS BETTER R-WAVE PROGRESSION Electronically Signed On 10-31-2016 18:48:21 EDT by Dickson Gómez
[2016-10-31 20:00] VITALS: BP 135/85; PULSE 100
[2016-10-31] MEDS: FOLIC ACID 1 MG TAB PO SCH (21:11)
[2016-10-31] MEDS: EZETIMIBE 10 MG TAB (ZETIA) PO SCH (21:11)
[2016-10-31 23:59] VITALS: BP 144/81
[2016-11-01 04:45] VITALS: BP 127/77
[2016-11-01] MEDS: SLF 3 ML SYR IV SCH ×3 (05:05→20:34)
[2016-11-01] MEDS: BUMETANIDE 1 MG/4 ML INJ (S0171) IV SCH ×2 (05:09→17:53)
[2016-11-01 05:26] LABS: MEAN CORPUSCULAR HEMOGLOBIN 23.9 pg (27.0-33.0); MEAN CORPUSCULAR HGB CONC 29.6 g/dl (32.0-36.5); MEAN CORPUSCULAR VOLUME 80.9 fl (80.0-96.0); RED CELL DISTRIBUTION WIDTH 16.7 % (11.5-14.5); WHITE BLOOD COUNT 7.3 K/mm3 (4.0-10.0)
[2016-11-01 05:34] LABS: CALCIUM LEVEL 9.3 MG/DL (8.8-10.2); CREATININE FOR GFR 1.29 MG/DL (0.55-1.02); GLOMERULAR FILTRATION RATE 41.9 (>32); POTASSIUM SERUM 3.9 MEQ/L (3.5-5.1)
--- NOTE | 2016-11-01 07:45 | ECHO ---
DATE OF PROCEDURE: 10/31/2016 INDICATION: Dyspnea, atrial fibrillation. The patient measures 157 cm and weighs 63 kg. DIMENSIONS: IVS - 1.1 LV - 4.0 LVPW - 1.0 LA - 4.9 Aorta - 2.6 FINDINGS: The study is of good technical quality. Left ventricle is of normal size and globally probably mild LV systolic dysfunction. I estimate LVEF around the 50%. Right ventricle is dilated but appears to be normally contractile. Both atria are severely enlarged, left more than right. Aortic valve is tricuspid. It is sclerotic but mobility seems preserved. Mitral valve exhibits degenerative abnormalities with thickening of mitral leaflets and mitral annular calcifications. Tricuspid and pulmonic valves appear normal. Trace pericardial effusion is noted. Inferior vena cava is massively dilated and has no appreciable collapse with respiration indicative of very high central venous pressure. Aortic root is normal. Aortic arch and abdominal aorta was not well seen. Doppler interrogation reveals trivial aortic insufficiency and trivial aortic stenosis. There is probably moderately severe mitral insufficiency. The pulmonary vein flow was not properly interrogated but based on color Doppler imaging, the MR could potentially be severe. There is probably severe tricuspid insufficiency as evidenced by reversal of systolic flow in pulmonary veins. Calculated pulmonary artery pressure is at least in high 50s corresponding to moderately severe pulmonary hypertension. Pulmonic valve exhibits mild insufficiency. Evaluation of diastolic function is inconclusive due to underlying atrial fibrillation but based on mitral inflow pattern, there is likely advanced diastolic dysfunction with almost restrictive type of pattern. CONCLUSION: 1. Study is of good technical quality. 2. Normal LV size with mild LV systolic dysfunction. 3. Prominent aortic sclerosis with trivial insufficiency and trivial stenosis. 4. Degenerative abnormalities of mitral valve with at least moderate to severe mitral insufficiency. 5. Probably severe tricuspid insufficiency. 6. Very high central venous pressure. 7. At least moderately severe pulmonary hypertension. 8. Severe biatrial enlargement. 9. Left pleural effusion. COMMENT: SBE prophylaxis is not recommended. MTDD
[2016-11-01 08:00] VITALS: BP 146/80
--- NOTE | 2016-11-01 08:39 | IPN ---
DATE: 11/01/2016 Mrs. Hernandez tells me that she is feeling better. She feels that she has more energy and is less short of breath. She continues to cough and she there is still peripheral edema. Vital signs: Blood pressure 122/77, heart rate is from 70s to 100 and teens. She remains in atrial fibrillation with improved rate control. Saturation is 97% on room air. She is afebrile. Her fluid balance yesterday was documented approximately equal, but the weight is down to 60.9 kg. If I can trust the documentation, she lost approximately 4 kg since admission. She is alert and oriented and appropriate. Her jugular venous pulse is still very high but much better than yesterday. I already see in sitting position that her jugular vein is not filled all the way to the jaw and the TR pulsations are clearly apparent. Lungs are relatively clear to auscultation on the top but she had diminished breath sounds over both bases. Heart exam reveals irregular rhythm. There is a holosystolic murmur heard at the left sternal border and at the apex. Both of them about 2 to 3 out of 6 in intensity. Abdomen is soft. There is still about 1+ peripheral edema and neurologically she is intact. LABORATORY: Potassium 3.9, creatinine 1.3 for GFR 42 and glucose 144. CBC reveals hemoglobin 9.7, hematocrit 33 and platelet count 247,000. She had an echocardiogram yesterday. It revealed low normal or mildly reduced LV systolic function with at least moderately severe mitral insufficiency and probably severe tricuspid insufficiency. It confirmed very dilated IVC without appreciable collapse consistent with very high CVP and she had at least moderately severe pulmonary hypertension. ASSESSMENT/PLAN: Mrs. Hernandez is in an elderly frail female who came with a few beats RVR. It has been very challenging to accomplish rate control and eventually amiodarone was introduced. After this introduction the heart rate is slowly getting better. I do think that within a day to it is likely that she will be controlled quite well. I am hoping that ultimately we will leave her just on amiodarone, metoprolol and the Cardizem will be slowly discontinued. She has been anticoagulated with low-dose Eliquis. It is probably adequate considering her low weight, advanced age and some component of renal insufficiency. The second problem is congestive heart failure. It is undoubtedly aggravated by her atrial fibrillation but the principal problem is likely mitral and tricuspid insufficiency. I would continue the current diuretic doses. I am somewhat concerned about the fact that the renal function is slowly declining. Ultimately I am afraid there is no fix to the underlying condition as, in my opinion, she is certainly not a surgical candidate. I am hoping that with yet better rate control, the condition of the cardiac work will improve sufficiently that her heart failure would be easier to control. She would like to go home and I think from cardiac perspective it is probably reasonable to expect discharge within few days. In the long horizon though, her prognosis is certainly poor. INDICATION
[2016-11-01] MEDS: FERROUS SULFATE 325MG TAB PO SCH (08:46)
[2016-11-01] MEDS: ACETAMINOPH W/CODEINE #3 TAB UD PO PRN ×2 (08:47→20:34)
[2016-11-01] MEDS: ASCORBIC ACID 250 MG TAB PO SCH ×2 (08:47→20:33)
[2016-11-01] MEDS: ALLOPURINOL 300 MG TAB PO SCH (08:48)
[2016-11-01] MEDS: DOCUSATE SODIUM 100 MG CAP PO SCH ×2 (08:48→20:32)
[2016-11-01] MEDS: APIXABAN 2.5 MG TAB (ELIQUIS) PO SCH ×2 (08:48→20:33)
[2016-11-01] MEDS: AMIODARONE 200 MG TAB (PACERONE) PO SCH ×2 (08:48→20:33)
[2016-11-01] MEDS: METOPROLOL TARTRATE 100 MG TAB PO SCH ×2 (08:54→20:33)
[2016-11-01 12:00] VITALS: BP 136/84
--- NOTE | 2016-11-01 14:28 | IPNPDOC ---
Date Seen The patient was seen on 11/01/16. Progress Note SUBJECTIVE: Ms. Hernandez is an 86-year-old female who is examined at bedside this morning. She is sitting in a chair upon evaluation. She reports no acute concerns at this time that the potential for her to go home in the next several days. Waiting for patient's heart rate to be better controlled. Patient is currently on amiodarone, Cardizem, and metoprolol. Heart rate continues to be suboptimally controlled. Slight worsening in kidney function. OBJECTIVE PHYSICAL EXAMINATION: VITAL SIGNS: Please see below. GENERAL: Elderly female sitting in the chair upon evaluation this morning, appears stated age, in no apparent distress HEENT: Atraumatic, normocephalic, PERRL, EOMI, oral mucosa appears pink and moist, nasal septum appears midline, periorbital edema appreciated CARDIOVASCULAR: Irregularly irregular heart rate and rhythm, normal S1 and S2, no murmur, rub, click appreciated RESPIRATORY: Clear to auscultation bilaterally, adequate inspiratory and expiratory airway excursion, no wheeze, crackles, rhonchi appreciated ABDOMINAL: Soft, nontender, nondistended, bowel sounds appreciated EXTREMITIES: Moving all 4 extremities appropriately, trace edema noted on the lower extremities bilaterally, compressive stockings in place NEUROLOGICAL: Cranial nerves II through XII are grossly intact PSYCHOLOGICAL: Mood and affect appear appropriate LABORATORY DATA: Please see below. MICROBIOLOGY: Please see below. Echocardiogram: CONCLUSION: 1. Study is of good technical quality. 2. Normal LV size with mild LV systolic dysfunction. 3. Prominent aortic sclerosis with trivial insufficiency and trivial stenosis. 4. Degenerative abnormalities of mitral valve with at least moderate to severe mitral insufficiency. 5. Probably severe tricuspid insufficiency. 6. Very high central venous pressure. 7. At least moderately severe pulmonary hypertension. 8. Severe biatrial enlargement. 9. Left pleural effusion. DVT prophylaxis ordered?: Eliquis 2.5 mg twice a day ASSESSMENT AND PLAN: Ms. Hernandez is an 86-year-old female who presented with chest pain and was found to have atrial fibrillation with rapid ventricular response as well as some possible underlying pleural effusions and possible community-acquired pneumonia. PROBLEMS: 1. Atrial fibrillation with rapid ventricular response: Blood pressure is 136/ 84. Heart rate time of evaluation was 106. Patient continues with metoprolol, amiodarone, Cartia some. Cardiology continues to follow along. Recommendations include for patient to her 52 remain on metoprolol and amiodarone for rate control and to eventually discontinue Cartia some. Patient remains on Eliquis 2.5 mg twice a day for anticoagulation. Echocardiogram results listed above. 2. Community-acquired pneumonia: WBC 7.3. Patient denies subjective shortness of breath. Sputum culture returned yeast-like organism and Staphylococcus aureus. Patient remains white count and is afebrile. This is likely colonization. Do not recommend antibiotics at this time. 3. Anemia, iron deficient: Hemoglobin and hematocrit continue to improve and on 9.7 and 32.9, respectively. Improvements daily. Continue to await stool for occult blood testing. 4. Decompensated diastolic congestive heart failure: This has been present since admission. Trace pitting edema noted in bilateral lower extremities with venous stasis skin changes. Patient remains on Bumex 1 g daily. BUN and creatinine are 28 and 1.29, respectively. Positive fluid balance overnight of 185 mL. 5. Chronic kidney disease: BUN and Creatinine is 28 and 1.29, respectively. This may be mildly increased patient's baseline. Continue to monitor with daily BMP. Positive fluid balance 185 mL overnight. 6. Hypertension: Blood pressure this morning was 136/84. 7. Dyslipidemia: Continue on current home medication regimen. 8. Gout: Continue on current home medication regimen. DISPOSITION: Heart rate is still suboptimally controlled. Echocardiogram does not reveal any structural reason for patient's tachycardia. Patient remains on Metoprolol, amiodarone, and Cardizem. Her heart rate will likely be controlled in the next couple days as amiodarone starts to work. Likely patient to remain on metoprolol and amiodarone with Cardizem eventually being discontinued. Sputum culture result at yeast-like organism and Staphylococcus aureus. Afebrile , no white count. No antibiotics at this time. Patient remains on Bumex for heart failure. Positive fluid balance, however patient has urinary incontinence so volume does not reflect an accurate output. Possible discharge in the next 72 hours as long as her heart rate is optimally controlled. VS, I&O, 24H, Fishbone Vital Signs/I&O Vital Signs Date Time Temp Pulse Resp B/P (MAP) Pulse Ox O2 Delivery O2 Flow Rate FiO2 11/01/16 12:00 106 136/84 11/01/16 12:00 98.1 18 97 Room Air 52/17 18:37 1.0 I&O- Last 24 Hours up to 6 AM 11/01/16 06:00 Intake Total 360 ml Output Total 0 ml Balance 360 ml Laboratory Data 24H LABS Laboratory Tests 2 11/01/16 04:46: Anion Gap 6L, Glomerular Filtration Rate 41.9, Blood Urea Nitrogen 28H, Creatinine 1.29H, Sodium Level 142, Potassium Level 3.9, Chloride Level 104, Carbon Dioxide Level 32, Calcium Level 9.3 CBC/BMP Laboratory Tests 11/01/16 04:46 Red Blood Count 4.07, Mean Corpuscular Volume 80.9, Mean Corpuscular Hemoglobin 23.9 L, Mean Corpuscular Hemoglobin Concent 29.6 L, Red Cell Distribution Width 16.7 H, Calcium Level 9.3 Microbiology Microbiology 10/27/16 Blood Culture - Preliminary, Resulted No Growth after 72 hours. All specime... 10/27/16 Blood Culture - Preliminary, Resulted No Growth after 72 hours. All specime... 10/30/16 Gram Stain - Final, Resulted 10/30/16 Sputum Culture - Preliminary, Resulted Staphylococcus Aureus Yeast Like Organism 10/27/16 Group A Streptococcus Screen ([facility]) - Final, Complete 10/27/16 Influenza Virus Type A Antigen - Final, Complete 10/27/16 Influenza Virus Type B Antigen - Final, Complete 10/28/16 Urine Culture - Final, Complete BINH ALBARADO November 01, 2016 14:27
[2016-11-01 16:00] VITALS: BP 132/86
[2016-11-01 17:33] VITALS: BP 138/76
[2016-11-01 20:00] VITALS: BP 132/79
[2016-11-01] MEDS: EZETIMIBE 10 MG TAB (ZETIA) PO SCH (20:33)
[2016-11-01] MEDS: FOLIC ACID 1 MG TAB PO SCH (20:33)
[2016-11-02] VITALS (8 sets, daily range): BP systolic 105–158; BP diastolic 64–90
[2016-11-02 05:16] LABS: MEAN CORPUSCULAR HEMOGLOBIN 23.6 pg (27.0-33.0); MEAN CORPUSCULAR HGB CONC 28.6 g/dl (32.0-36.5); MEAN CORPUSCULAR VOLUME 82.7 fl (80.0-96.0); RED CELL DISTRIBUTION WIDTH 16.8 % (11.5-14.5); WHITE BLOOD COUNT 7.5 K/mm3 (4.0-10.0)
[2016-11-02] MEDS: BUMETANIDE 1 MG/4 ML INJ (S0171) IV SCH (05:31)
[2016-11-02 05:32] LABS: CALCIUM LEVEL 8.6 MG/DL (8.8-10.2); CREATININE FOR GFR 1.43 MG/DL (0.55-1.02); GLOMERULAR FILTRATION RATE 37.2 (>32); POTASSIUM SERUM 3.4 MEQ/L (3.5-5.1)
[2016-11-02] MEDS: SLF 3 ML SYR IV SCH ×3 (05:37→22:34)
[2016-11-02] MEDS ORDERED: POTASSIUM CHLORIDE 10 MEQ SR TABLET PO ONE (08:00)
[2016-11-02] MEDS: APIXABAN 2.5 MG TAB (ELIQUIS) PO SCH ×2 (09:24→20:59)
[2016-11-02] MEDS: DOCUSATE SODIUM 100 MG CAP PO SCH ×2 (09:24→20:57)
[2016-11-02] MEDS: FERROUS SULFATE 325MG TAB PO SCH (09:24)
[2016-11-02] MEDS: ASCORBIC ACID 250 MG TAB PO SCH ×2 (09:24→21:00)
[2016-11-02] MEDS: ALLOPURINOL 300 MG TAB PO SCH (09:24)
[2016-11-02] MEDS: NYSTATIN 100,000 UNITS/GM TOPICAL PWD 15 GM TOP SCH ×2 (09:24→21:08)
[2016-11-02] MEDS: AMIODARONE 200 MG TAB (PACERONE) PO SCH ×2 (09:25→21:00)
[2016-11-02] MEDS: METOPROLOL TARTRATE 100 MG TAB PO SCH ×2 (09:25→21:03)
[2016-11-02] MEDS: ACETAMINOPH W/CODEINE #3 TAB UD PO PRN ×2 (09:29→20:59)
--- NOTE | 2016-11-02 10:29 | IPNPDOC ---
Date Seen The patient was seen on 11/02/16. Progress Note SUBJECTIVE: Ms. Hernandez is an 86-year-old female who is evaluated bedside this morning. She is sitting up in bed during evaluation. She continues to have this persistent wet sounding cough and associated throat tightness. Denies tobacco abuse. No difficulty swallowing. Denies nasal stuffiness and postnasal drip. Reports of the throat tightness started after she had an evaluation by dental office and had impressions taken. She denies shortness of breath. Continue to monitor patient for rapid ventricular response associated with atrial fibrillation. Renal function appears to be worsening. Hypokalemic this morning. Remains anemic. OBJECTIVE PHYSICAL EXAMINATION: VITAL SIGNS: Please see below. GENERAL: Elderly female evaluated bedside this morning, in no apparent distress HEENT: Atraumatic, normocephalic, PERRL, EOMI, oral mucosa appears pink and moist, dentition is poor, no appreciable pharyngeal erythema, excoriations, lesions, periorbital edema noted bilaterally CARDIOVASCULAR: Irregularly irregular heart rate and rhythm, normal S1 and S2, grade 2/4 systolic murmur appreciated best in the left axilla RESPIRATORY: Clear to auscultation bilaterally, adequate inspiratory and expiratory airway excursion and no wheeze, rhonchi, crackles ABDOMINAL: Soft, nontender, nondistended, bowel sounds appreciated EXTREMITIES: Moving all 4 extremities appropriately, compression stockings in place of lower extremities bilaterally, very minimal trace edema appreciated, right > left, radial pulses appreciated bilaterally, irregularly irregular, equal, symmetrical, +2/4 NEUROLOGICAL: Cranial nerves II through XII appear grossly intact PSYCHOLOGICAL: Mood and affect appear appropriate LABORATORY DATA: Please see below. MICROBIOLOGY: Please see below. IMAGING: Chest x-ray DVT prophylaxis ordered?: Eliquis 2.5 mg twice a day ASSESSMENT AND PLAN: Ms. Hernandez is an 86-year-old female who presented with chest pain and was found to have atrial fibrillation with rapid ventricular response as well as some possible underlying pleural effusions and possible community-acquired pneumonia. PROBLEMS: 1. Atrial fibrillation with rapid ventricular response: Patient continues to have intermittent rapid ventricular response. Remains on amiodarone, Metoprolol , and Cardizem. Blood pressure is 147/70. Patient is also on low-dose Eliquis 2.5 mg twice a day. 2. Hypokalemia: Patient's potassium was 3.4 this morning. Supplementation provided. Could be related to Bumex administration. 3. Persistent cough: Patient continues to have a persistent cough and sputum culture returned positive for MRSA. WBC 7.5. Patient denies shortness of breath. Obtaining chest x-ray. Likely colonization. No need for antibiotics at this time. 4. Community-acquired pneumonia: WBC 7.5. Patient denies subjective shortness of breath. Sputum culture returned yeast-like organism and MRSA. Stable white count and afebrile. 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 5. Acute kidney injury superimposed on chronic kidney disease: BUN and Creatinine is 33 and 1.43, respectively. Creatinine is steadily increasing. Positive fluid balance of 980 mL. Likely not accurate secondary to patient's underlying incontinence. Patient is being diuresed secondary to congestive heart failure, however patient clinically appears to still require diuresis and as such have been adjusted patient's diuretic to by mouth. 6. Anemia, iron deficient: Hemoglobin and hematocrit continue to improve and on 8.9 and 31, respectively. Awaiting stool for occult blood testing. 7. Decompensated diastolic congestive heart failure: This has been present since admission. Very mild pitting edema noted on lower extremities, right > left. Patient remains on Bumex, has been transitioned from intravenous to by mouth. BUN and creatinine are 33 and 1.43, respectively. Positive fluid balance of 980 mL overnight. Likely not accurate secondary to patient's urinary incontinence. Increasing creatinine could be related to diuresis him however patient still clinically volume overloaded and diuresis is recommended. Have adjusted diuretic to by mouth. 8. Hypertension: Blood pressure this morning was 147/70. Remains on Bumex. 9. Dyslipidemia: Continue on current home medication regimen. 10. Gout: Continue on current home medication regimen. DISPOSITION: Heart rate continues to intermittently remain tachycardic. Patient is on amiodarone, metoprolol, Cardizem. Patient continues to have persistent, wet sounding cough with sputum culture returning MRSA. Patient is afebrile with no white count. Could be colonization. BUN and creatinine appear to be mildly increasing. Could consider the patient is being over diuresed although clinical picture shows the patient still volume overloaded, therefore diuresis still recommended. VS, I&O, 24H, Fishbone Vital Signs/I&O Vital Signs Date Time Temp Pulse Resp B/P (MAP) Pulse Ox O2 Delivery O2 Flow Rate FiO2 11/02/16 09:29 20 11/02/16 09:25 111 147/70 11/02/16 07:10 98.0 94 Room Air 10/29/16 18:37 1.0 I&O- Last 24 Hours up to 6 AM 11/02/16 06:00 Intake Total 1080 ml Output Total 100 ml Balance 980 ml Laboratory Data 24H LABS Laboratory Tests 2 11/02/16 04:52: Anion Gap 8, Glomerular Filtration Rate 37.2, Blood Urea Nitrogen 33H, Creatinine 1.43H, Sodium Level 142, Potassium Level 3.4L, Chloride Level 103, Carbon Dioxide Level 31, Calcium Level 8.6L CBC/BMP Laboratory Tests 11/02/16 04:52 Red Blood Count 3.75 L, Mean Corpuscular Volume 82.7, Mean Corpuscular Hemoglobin 23.6 L, Mean Corpuscular Hemoglobin Concent 28.6 L, Red Cell Distribution Width 16.8 H, Calcium Level 8.6 L Microbiology Microbiology 10/27/16 Blood Culture - Final, Complete NO GROWTH AFTER 5 DAYS 10/27/16 Blood Culture - Final, Complete NO GROWTH AFTER 5 DAYS 10/30/16 Gram Stain - Final, Complete 10/30/16 Sputum Culture - Final, Complete Staph.aureus Methicillin Resis Yeast Like Organism 10/27/16 Group A Streptococcus Screen ([facility]) - Final, Complete 10/27/16 Influenza Virus Type A Antigen - Final, Complete 10/27/16 Influenza Virus Type B Antigen - Final, Complete 10/28/16 Urine Culture - Final, Complete BINH ALBARADO November 02, 2016 10:29
--- NOTE | 2016-11-02 12:50 | IPN ---
DATE: 11/02/2016 Mrs. Hernandez tells me that she is feeling better. When I was seeing her, she was actually washing herself. She was able to do that without major difficulty. It seems that her dyspnea has improved as well. Blood pressure 147/70, heart rate from 80s to 120s, average probably 100. She is afebrile. Saturation 94% on room air. Fluid balance yesterday was documented as positive. No weight is documented this morning. She is alert and oriented and appropriate. Her jugular venous pulse (JVP) less high than it was previous days, now probably 203 cm above clavicle. Lungs are relatively clear to auscultation. No wheezing. There are occasional crackles and there are little bit diminished breath sounds over both bases. Heart exam irregularly irregular. There is still very musical murmur best heard over her apex about 3/6 intensity consistent with MR. Abdomen is soft, nontender. There is still some spectral edema but improved, maybe 1+. Neurologically, there is generalized weakness but otherwise intact. Laboratory still, CBC reveals WBC count 7.5, hemoglobin 8.9, hematocrit 31, platelet count 219. Basic metabolic panel: Potassium 3.4, BUN 33, creatinine 1.4, GFR 37 and glucose 157. ASSESSMENT AND PLAN: Mrs. Hernandez is an 86-year-old female who has come to the hospital with shortness of breath and was found to be in congestive heart failure principally due to atrial fibrillation with rapid ventricular response and combined mitral and tricuspid valve disease. I do not believe that we can correct her underlying valvular disease. She is not a surgical candidate for this kind of surgery. I think that realistically speaking we should accomplish better rate control and proceed with chronic anticoagulation and chronic diuretic treatment. Her heart rate was very difficult to control but I decided to introduce amiodarone and it looks like we are making some progress. I will leave the medication unchanged and I hope that within a day or two we will be able to leave her just on combination of amiodarone and beta-jonathan. She is anticoagulated with renally adjusted dose of Eliquis. As far as the heart failure is concerned, again it is the underlying problem, it is probably moderately severe if not severe mitral insufficiency and atrial fibrillation. She is better controlled, but still far from euvolemic, but I think that we are making decent progress and I will leave the medications unchanged.
[2016-11-02] MEDS ORDERED: ACETAMINOPHEN 325 MG TAB PO PRN (17:45)
[2016-11-02] MEDS: EZETIMIBE 10 MG TAB (ZETIA) PO SCH (20:57)
[2016-11-02] MEDS: FOLIC ACID 1 MG TAB PO SCH (21:00)
[2016-11-03] VITALS (7 sets, daily range): BP systolic 126–148; BP diastolic 69–83; PULSE 80–90
[2016-11-03 05:55] LABS: MEAN CORPUSCULAR HEMOGLOBIN 23.7 pg (27.0-33.0); MEAN CORPUSCULAR HGB CONC 29.2 g/dl (32.0-36.5); MEAN CORPUSCULAR VOLUME 81.4 fl (80.0-96.0); RED CELL DISTRIBUTION WIDTH 17.2 % (11.5-14.5); WHITE BLOOD COUNT 7.6 K/mm3 (4.0-10.0)
[2016-11-03 06:08] LABS: CALCIUM LEVEL 8.9 MG/DL (8.8-10.2); CREATININE FOR GFR 1.23 MG/DL (0.55-1.02); GLOMERULAR FILTRATION RATE 44.3 (>32); POTASSIUM SERUM 3.7 MEQ/L (3.5-5.1)
[2016-11-03] MEDS: SLF 3 ML SYR IV SCH ×3 (06:38→20:34)
--- NOTE | 2016-11-03 07:10 | REP ---
CHEST, ONE VIEW: HISTORY: Cough. COMPARISON: 10/27/2016 There are bilateral basilar patchy opacities increased on the right and decreased on the left, but seen with bilateral CP angle blunting, increased on the right and left. The heart is enlarged. The technique utilized in obtaining the radiograph has magnified the cardiac silhouette and accentuated the interstitial markings. IMPRESSION: Abnormal bibasilar opacities, pneumonia/atelectasis/effusion. Signed by Simon Kincaid DO 11/03/2016 09:54 A
[2016-11-03] MEDS: ASCORBIC ACID 250 MG TAB PO SCH ×2 (08:27→20:32)
[2016-11-03] MEDS: ALLOPURINOL 300 MG TAB PO SCH (08:27)
[2016-11-03] MEDS: FERROUS SULFATE 325MG TAB PO SCH (08:27)
[2016-11-03] MEDS: METOPROLOL TARTRATE 100 MG TAB PO SCH ×2 (08:29→20:33)
[2016-11-03] MEDS: APIXABAN 2.5 MG TAB (ELIQUIS) PO SCH ×2 (08:30→20:33)
[2016-11-03] MEDS: DOCUSATE SODIUM 100 MG CAP PO SCH ×2 (08:30→20:33)
[2016-11-03] MEDS: AMIODARONE 200 MG TAB (PACERONE) PO SCH ×2 (08:30→20:32)
[2016-11-03] MEDS: NYSTATIN 100,000 UNITS/GM TOPICAL PWD 15 GM TOP SCH ×2 (08:31→20:34)
[2016-11-03] MEDS: BUMETANIDE 1 MG TAB PO SCH ×2 (08:34→20:32)
[2016-11-03] MEDS: ACETAMINOPH W/CODEINE #3 TAB UD PO PRN (11:26)
--- NOTE | 2016-11-03 13:04 | IPNPDOC ---
Subjective Date Seen The patient was seen on 11/03/16. Subjective Chief Complaint/HPI The patient is a 86-year-old female admitted with a reason for visit of Atrial Fib With Ryr, Chest Pain. General: Denies: Chills, Night Sweats Constitutional: Denies: Chills, Fever Eyes: Denies: Pain, Vision change ENT: Denies: Head Aches, Ear Pain Skin: Denies: Rash, Lesions Pulmonary: Reports: Cough, Denies: Dyspnea Cardiovascular: Denies: Chest Pain, Palpitations Gastrointestinal: Denies: Nausea, Vomiting Genitourinary: Denies: Dysuria, Frequency Hematologic: Denies: Bruising, Bleeding Excessively Objective Physical Examination General Exam: Positive: Alert, Cooperative, No Acute Distress ENT Exam: Positive: Atraumatic, Mucous membr. moist/pink Neck Exam: Positive: JVD Chest Exam: Positive: Normal air movement, Rales (Faint bibasilar crackles at the lung bases b/l), Diminished Heart Exam: Positive: Irregular Rhythm Telemetry: Positive: Atrial fibrillation Abdomen Exam: Positive: Soft, Negative: Tenderness Extremity Exam: Positive: Other (1+ pitting edema in the L/E B/L), Negative: Tenderness Psych Exam: Positive: Oriented x 3 Assessment /Plan Plan/VTE VTE Prophylaxis Ordered?: Yes Plan/Urinary Catheter Reason for insertion/continuin: Critical Pt monitoring Plan Atrial fibrillation with rapid ventricular response 2/2 Decompensated Diastolic CHF, with underlying Mitral and Tricuspid Valvular Disease P Patient's Heart Rate has responded to Amiodarone, Metoprolol, and Cardizem therapy with her HR being mostly in the 90s over the last 24 hrs Controlling the patient's HR will be a challenge moving forward given her underlying valvular disease and her increased susceptibility to go into decompensated CHF because of the aforementioned valvular disease. Continue Eliquis 2.5mg BID 2D ECHO noted The patient has been continued on Bumex and her fluid status has improved significantly over the last few days. We have transitioned her over to PO Bumex We will continue to monitor her I/O's, Daily weights Cardiology on board and their input has been greatly appreciated CKD/Renal Insufficiency likely 2/2 Diuretic Therapy Patient's Serum Cr 1.2 this AM, baseline ~1.1 We will be careful with diuretic dosing as the patient does have some underlying CKD Continue to monitor BMP Iron Deficiency Anemia Hemoglobin 9.0 this AM No active Bleeding, Stool Occult negative Continue ferrous sulfate Hypertension, stable Cont Bumex Dyslipidemia Cont Zetia Gout Cont Allopurinol DVT Prophylaxis--Already on Eliquis Disposition--we will follow up with the patient's progress over the next 24-48 hours, and anticipate discharge home with services as noted by physical therapy pending clinical improvement. VS, I&O, 24H, Fishbone Vital Signs/I&O Vital Signs Date Time Temp Pulse Resp B/P (MAP) Pulse Ox O2 Delivery O2 Flow Rate FiO2 11/03/16 12:25 18 11/03/16 12:00 Room Air 11/03/16 12:00 90 11/03/16 11:58 98.7 135/82 (99) 96 10/29/16 18:37 1.0 I&O- Last 24 Hours up to 6 AM 11/03/16 05:59 Intake Total 840 ml Output Total 200 ml Balance 640 ml Laboratory Data 24H LABS Laboratory Tests 2 11/03/16 05:39: Anion Gap 8, Glomerular Filtration Rate 44.3, Blood Urea Nitrogen 26H, Creatinine 1.23H, Sodium Level 143, Potassium Level 3.7, Chloride Level 108H, Carbon Dioxide Level 27, Calcium Level 8.9 CBC/BMP Laboratory Tests 11/03/16 05:39 Red Blood Count 3.79 L, Mean Corpuscular Volume 81.4, Mean Corpuscular Hemoglobin 23.7 L, Mean Corpuscular Hemoglobin Concent 29.2 L, Red Cell Distribution Width 17.2 H, Calcium Level 8.9 Microbiology Microbiology 10/27/16 Blood Culture - Final, Complete NO GROWTH AFTER 5 DAYS 10/27/16 Blood Culture - Final, Complete NO GROWTH AFTER 5 DAYS 11/03/16 Stool Occult Blood ([facility]) - Final, Complete 10/30/16 Gram Stain - Final, Complete 10/30/16 Sputum Culture - Final, Complete Staph.aureus Methicillin Resis Yeast Like Organism 10/27/16 Group A Streptococcus Screen ([facility]) - Final, Complete 10/27/16 Influenza Virus Type A Antigen - Final, Complete 10/27/16 Influenza Virus Type B Antigen - Final, Complete 10/28/16 Urine Culture - Final, Complete MARY GARRISON MD November 03, 2016 13:04
--- NOTE | 2016-11-03 13:18 | IPN ---
DATE: 11/03/2016 Mrs. Hernandez tells me that there has been further improvement. She feels a little stronger and little less short of breath. Denies any chest pain or sensation of palpitations. Blood pressure 135/82, heart rate is in 80s and 90s, occasionally up to 120s when she moves. She otherwise afebrile, saturation 96% room air. Fluid balance yesterday was documented 640 positive, but weight is down to 59.8 kg. She is alert and oriented, appropriate. Does not appear to be in any distress while sitting in hospital chair. Her jugular venous pulse (JVP) is still very high, at least 5 or 6 cm above clavicle. Lungs are clear with the exception of both bases, they are decreased. Heart exam reveals irregularly irregular rhythm. The musical murmur is present throughout precordial but best heard over the apex is unchanged. Abdomen soft, nontender. There is still 1+ peripheral edema. Laboratory still, basic metabolic panel: Potassium 3.7, BUN 26, creatinine 1.33, GFR 44, glucose 148, 447. CBC: WBC 7.6, hemoglobin 9.0, hematocrit 30.9, platelet count 208. ASSESSMENT AND PLAN: Mrs. Hernandez is an 86-year-old female who has both mitral and tricuspid insufficiency that are approaching severe degree, who presented with atrial fibrillation with rapid ventricular response (RVR) and congestive heart failure. She was somewhat difficult to rate control and is currently on combination of metoprolol 100 twice a day, plus Cardizem, plus amiodarone 400 twice a day. The heart rate is now improving every day. I do expect that by tomorrow or the day after tomorrow we probably will be able to discontinue Cardizem, continue metoprolol, amiodarone only. She is anticoagulated with apixaban. As far as congestive heart failure is concerned, she is improving even though I think the underlying MR will make the treatment very difficult. I would continue current Bumex 1 mg twice a day. I do expect that she will be ready for discharge within probably 2 days.
[2016-11-03] MEDS: EZETIMIBE 10 MG TAB (ZETIA) PO SCH (20:33)
[2016-11-03] MEDS: FOLIC ACID 1 MG TAB PO SCH (20:33)
[2016-11-04 04:45] VITALS: BP 140/74
[2016-11-04 05:39] LABS: MEAN CORPUSCULAR HEMOGLOBIN 23.5 pg (27.0-33.0); MEAN CORPUSCULAR HGB CONC 28.4 g/dl (32.0-36.5); MEAN CORPUSCULAR VOLUME 82.8 fl (80.0-96.0); RED CELL DISTRIBUTION WIDTH 17.3 % (11.5-14.5); WHITE BLOOD COUNT 7.7 K/mm3 (4.0-10.0)
[2016-11-04 05:48] LABS: CALCIUM LEVEL 8.6 MG/DL (8.8-10.2); CREATININE FOR GFR 1.22 MG/DL (0.55-1.02); GLOMERULAR FILTRATION RATE 44.7 (>32); POTASSIUM SERUM 3.5 MEQ/L (3.5-5.1)
[2016-11-04] MEDS: SLF 3 ML SYR IV SCH (06:51)
[2016-11-04 08:00] VITALS: BP 142/74
--- NOTE | 2016-11-04 08:48 | IPN ---
DATE: 11/04/2016 Mrs. Hernandez had a relatively good night. She feels much better and was able to ambulate from bed to bedside and to the bathroom without major difficulty with the help of a walker. She would like to go home. Blood pressure 140/74. Heart rate remains in 80s and 90s. She is afebrile. Saturation 96% on room air. Her balance yesterday was slightly negative. Jugular venous pulse (JVP) is still high. Lungs have some occasional crackles. Somewhat diminished heart sounds over bases. Heart exam reveals an irregular rate and rhythm. There is a remaining musical murmur at the apex. Abdomen soft, nontender. There is still some peripheral edema. Laboratory-still, CBC with hemoglobin 9.0, hematocrit 31.7, platelet count 236, WBC count 7.7. Her basic metabolic panel with potassium 3.5, BUN 22, creatinine 1.2, GFR 44, and glucose 151. ASSESSMENT/PLAN: Mrs. Hernandez is an 86-year-old female who has probably severe mitral and tricuspid insufficiency and atrial fibrillation with RVR. She is now reasonably well-controlled on high-dose beta jonathan and amiodarone. She has not received Cardizem in several days due to holding parameters. She wants to go home and I think it is acceptable. Her regular dub room engineer is Dr. Mckenzie and she has a scheduled appointment in about 10 days. She expressed some desire to follow in my office, but I explained to her that we not provide primary care services and consequently she would have to find a new primary care physician as well. It makes more sense that she continues to follow with Dr. Mckenzie. He knows her well and has been her physician for years. In the long run, I am afraid that her condition will deteriorate. I do not believe that she is a candidate for mitral valve replacement.
[2016-11-04] MEDS: FERROUS SULFATE 325MG TAB PO SCH (09:00)
[2016-11-04] MEDS: DOCUSATE SODIUM 100 MG CAP PO SCH (09:00)
[2016-11-04 10:02] VITALS: BP 140/74
[2016-11-04] MEDS: METOPROLOL TARTRATE 100 MG TAB PO SCH (10:02)
[2016-11-04] MEDS: BUMETANIDE 1 MG TAB PO SCH (10:02)
[2016-11-04] MEDS: ALLOPURINOL 300 MG TAB PO SCH (10:03)
[2016-11-04] MEDS: AMIODARONE 200 MG TAB (PACERONE) PO SCH (10:03)
[2016-11-04] MEDS: APIXABAN 2.5 MG TAB (ELIQUIS) PO SCH (10:03)
[2016-11-04] MEDS: ASCORBIC ACID 250 MG TAB PO SCH (10:03)
[2016-11-04] MEDS: NYSTATIN 100,000 UNITS/GM TOPICAL PWD 15 GM TOP SCH (10:06)
[2016-11-04] MEDS ORDERED: LOPR1TAB7 PO (10:49)
[2016-11-04] MEDS ORDERED: FERR325T PO (10:49)
[2016-11-04] MEDS ORDERED: ELIQ2.5T PO (10:49)
[2016-11-04] MEDS ORDERED: AMIO20TA PO (10:49)
--- NOTE | 2016-11-04 13:41 | DS.PDOC ---
Discharge Summary General Date of Admission October 28, 2016 at 00:45 Date of Discharge 11/04/2016 Primary Care Physician: Anthony Mckenzie MD Attending Physician: MARY GARRISON MD Specialist/Consultants Involve: Alphonse Saravia MD Specialist/Consultants Involve Cardiology Discharge Summary PROCEDURES PERFORMED DURING STAY: None. ADMITTING DIAGNOSES: 1. Chest pain. 2. Atrial fibrillation with rapid ventricular response. 3. Congestive heart failure (CHF). 4. Pneumonia. 5. Hypertension. DISCHARGE DIAGNOSES: 1. Community-acquired pneumonia. 2. Valvular atrial fibrillation with rapid ventricular response. 3. Hypotension. 4. Pulmonary hypertension. 5. Mitral insufficiency. 6. Tricuspid insufficiency. 7. Iron deficiency anemia. COMPLICATIONS/CHIEF COMPLAINT: Atrial Fib With Ryr, Chest Pain. HISTORY OF PRESENT ILLNESS: Ms. David Angelo is an 86-year-old female with a history of hypertension, hypercholesterolemia, anemia, degenerative disc disease , congestive heart failure who began experiencing chest pressure. She has had it off and on over the last month, but it started today. It continued. It was much worse. She felt short of breath. Ambulance was called and she was brought to the emergency room. Patient received nitroglycerine sublingual in the ambulance en route. Upon arrival, blood pressure was 107/77, respirations were 24, temperature was 100.4, oxygen saturation was 96% on 2 liters. EKG was done. Patient was found to be in atrial fibrillation with a rapid ventricular response. Rate was varying between 140-147. EKG showed atrial fibrillation with a rapid ventricular response, rate of 143. This was new since her EKG 2016. She was not in atrial fibrillation. Laboratory studies were drawn. White count was slightly elevated at 11.2, hemoglobin and hematocrit were 9.1 and 31.1, platelets were 182. Sodium was 140 , potassium was slightly low at 3.0, chloride 105, CO2 of 27, BUN was 24, creatinine 1.1, nonfasting glucose 164, magnesium was 1.6. CPK was 30. CK-MB was 1.5. Troponin was less than 0.02. TSH was 1.38. Urine was clear. PH was 5.0. Influenza A and B were negative. Blood cultures were drawn. Chest x-ray was done. It showed chronic interstitial fibrosis, left lower lobe infiltrate, cardiomegaly. Patient's pressure decreased down to 86/56. Patient was given a fluid bolus of 500 mL in the emergency room. The emergency room (ER) doctor spoke with Dr. Leung. She was started on Rocephin and azithromycin for the pneumonia. Angiography CT was done, and there was no evidence of pulmonary emboli. Acute findings were cardiomegaly with pulmonary vascular congestion, moderate pleural effusions, and lingula and lower lobe atelectasis/consolidations. Patient's blood pressure improved to 96/63. Remained in atrial fibrillation with a rapid ventricular response. The emergency room physician discussed the case with Dr. Gómez, who recommended 150 mg intravenous (IV) of amiodarone and 0.25 of digoxin. Her rate improved to 88. Blood pressure remained stable at 94/60. Chest pain was resolved. She was less short of breath. Assessment was done, and patient will be admitted to the intensive care unit (ICU). Chest pain, rule out myocardial infarction (UT), atrial fibrillation with rapid ventricular response, congestive heart failure (CHF), and pneumonia. Patient will be admitted inpatient status for IV antibiotics. HOSPITAL COURSE: Patient admitted to the intensive care unit and on hospitalist service. Antibiotics continued for pneumonia until clinical picture resolved, and then discontinued. Cardizem and metoprolol for a rapid ventricular response. Placed on high-dose aspirin. Started on intravenous diuresis and eventually transition to by mouth for congestive heart failure. Cardiology consult recommended amiodarone and Eliquis. Metoprolol was increased since rapid ventricular response difficult to control. Eventually transferred to the progressive care unit. Iron studies evaluated for patient's persistent anemia. Placed on iron supplementation. Stool occult was negative. Echocardiogram performed with result reported below. Patient not candidate for surgery to replace cardiac valves. Continued diuretics to control fluid status and beta jonathan and amiodarone to control heart rate. Mild increase in renal function, likely secondary to underlying CHF. Physical therapy evaluated and treated patient and recommended that she can be discharged home with services. Patient and family services met with patient and stated that patient has 20/01 care and requested [facility] for services. Transport home at 2 PM. Patient made improvements during hospitalization and was stable for discharge. DISCHARGE MEDICATIONS: Please see below. ALLERGIES: Please see below. PHYSICAL EXAMINATION ON DISCHARGE: VITAL SIGNS: Please see below. GENERAL: Elderly female sitting comfortably upon evaluation this morning, no apparent distress HEENT: Atraumatic, normocephalic, PERRL, EOMI, oral mucosa appears pink with no septum appears midline, bilateral periorbital edema NECK: Soft, supple, trachea midline, no lymphadenopathy appreciated CARDIOVASCULAR EXAMINATION: Irregularly irregular heart rate and rhythm, normal S1 and S2, grade 2/6 systolic murmur heard best in the left axilla RESPIRATORY EXAMINATION: Clear to auscultation bilaterally, adequate inspiratory and expiratory airway excursion, no wheeze, rhonchi, crackles ABDOMINAL EXAMINATION: Soft, nontender, nondistended, bowel sounds appreciated EXTREMITIES: Moving all 4 extremities appropriately, venous stasis skin changes noted over bilateral lower extremities, upper extremity peripheral pulses are irregularly irregular equal, symmetrical, +2/4 SKIN: Venous stasis skin changes noted over bilateral lower extremities NEUROLOGICAL EXAMINATION: Cranial nerves II through XII appear grossly intact PSYCHIATRIC EXAMINATION: Mood and affect appear appropriate LABORATORY DATA: Please see below. IMAGING: Chest x-ray IMPRESSION: 1. Chronic interstitial fibrosis. 2. Left lower lobe atelectasis or infiltrate. 3. Cardiomegaly. CT angiogram of the chest Impression: 1. No evidence for pulmonary embolus. 2. Acute findings include cardiomegaly with pulmonary vascular congestion/interstitial edema, moderate pleural effusions, lingular and lower lobe atelectasis/consolidations. Transthoracic echocardiogram CONCLUSION: 1. Study is of good technical quality. 2. Normal LV size with mild LV systolic dysfunction. 3. Prominent aortic sclerosis with trivial insufficiency and trivial stenosis. 4. Degenerative abnormalities of mitral valve with at least moderate to severe mitral insufficiency. 5. Probably severe tricuspid insufficiency. 6. Very high central venous pressure. 7. At least moderately severe pulmonary hypertension. 8. Severe biatrial enlargement. 9. Left pleural effusion. Chest x-ray IMPRESSION: Abnormal bibasilar opacities, pneumonia/atelectasis/effusion. PROGNOSIS: Stable. ACTIVITY: Walk with walker. DIET: 2 g sodium. DISCHARGE PLAN: See discharge instructions. DISPOSITION: Home with services. DISCHARGE INSTRUCTIONS: 1. Follow-up with Dr. Mckenzie on 11/14/2016 11 AM. 2. Home health for continued physical therapy rehabilitation. 3. Continue medications to control heart rate - metoprolol, amiodarone. 4. Continue anticoagulant - Eliquis. 5. Hold blood pressure medications - losartan, hydralazine, labetalol - until seen by primary care provider. 6. Hold allopurinol until evaluated by primary care provider. 7. Continue taking iron supplementation for iron deficiency anemia. ITEMS TO FOLLOWUP ON ON OUTPATIENT: 1. Valvular atrial fibrillation with rapid ventricular response. 2. Chronic kidney disease. 3. Anemia. 4. Congestive heart failure. DISCHARGE CONDITION: Stable. TIME SPENT ON DISCHARGE: Greater than 30 minutes. Vital Signs/I&Os Vital Signs Date Time Temp Pulse Resp B/P (MAP) Pulse Ox O2 Delivery O2 Flow Rate FiO2 11/04/16 10:02 85 140/74 11/04/16 08:00 98.9 20 95 Room Air 10/29/16 18:37 1.0 I&O- Last 24 Hours up to 6 AM 11/04/16 06:00 Intake Total 1110 ml Output Total 2200 ml Balance -1090 ml Laboratory Data Labs 24H Laboratory Tests 2 11/04/16 05:19: Anion Gap 7L, Glomerular Filtration Rate 44.7, Blood Urea Nitrogen 22H, Creatinine 1.22H, Sodium Level 143, Potassium Level 3.5, Chloride Level 106, Carbon Dioxide Level 30, Calcium Level 8.6L CBC/BMP Laboratory Tests 11/04/16 05:19 Red Blood Count 3.82 L, Mean Corpuscular Volume 82.8, Mean Corpuscular Hemoglobin 23.5 L, Mean Corpuscular Hemoglobin Concent 28.4 L, Red Cell Distribution Width 17.3 H, Calcium Level 8.6 L Microbiology Microbiology 10/27/16 Blood Culture - Final, Complete NO GROWTH AFTER 5 DAYS 10/27/16 Blood Culture - Final, Complete NO GROWTH AFTER 5 DAYS 11/03/16 Stool Occult Blood (RADHA) - Final, Complete 10/30/16 Gram Stain - Final, Complete 10/30/16 Sputum Culture - Final, Complete Staph.aureus Methicillin Resis Yeast Like Organism 10/27/16 Group A Streptococcus Screen (RADHA) - Final, Complete 10/27/16 Influenza Virus Type A Antigen - Final, Complete 10/27/16 Influenza Virus Type B Antigen - Final, Complete 10/28/16 Urine Culture - Final, Complete Discharge Medications Scheduled Amiodarone HCl (Amiodarone HCl) 200 Mg Tab, 400 MG PO BID Apixaban Base (Eliquis) 2.5 Mg Tab, 2.5 MG PO BID Bumetanide (Bumetanide) 1 Mg Tab, 1 MG PO BID, (Reported) Ezetimibe (Zetia) 10 Mg Tab, 10 MG PO QHS, (Reported) Ferrous Sulfate (Ferrous Sulfate) 325 Mg Tab, 325 MG PO DAILY Folic Acid (Folic Acid) 1 Mg Tab, 1 MG PO QHS, (Reported) Metoprolol Tartrate (Lopressor) 100 Mg Tab, 100 MG PO BID Scheduled PRN Acetaminophen/Codeine (Tylenol/Codeine #3) Tab, 2 TAB PO TID PRN for PAIN, ( Reported) Allergies Coded Allergies: Furosemide (Unverified Adverse Reaction, Unknown, "PUT MORE FLUID ON", 07/02) BINH ALBARADO OGME-I November 04, 2016 13:03
== END 2016-11-04 14:12 | disposition home health service (06) | DRG 291 ==
LOC: EDBD 18:10 → M ED 19:25 → M ICU 10-28 00:45 → M PCU 10-30 02:31
PROVIDERS: ADMIT Internal Medicine; ATTEND Internal Medicine
DX: I13.0 Hypertensive heart and chronic kidney disease with heart failure and stage 1 through stage 4 chronic kidney disease, or unspecified chronic kidney disease (principal); J18.9 Pneumonia, unspecified organism; I50.33 Acute on chronic diastolic (congestive) heart failure; N17.9 Acute kidney failure, unspecified; Z66 Do not resuscitate; E87.6 Hypokalemia; M10.9 Gout, unspecified; I48.91 Unspecified atrial fibrillation; E78.5 Hyperlipidemia, unspecified; N18.9 Chronic kidney disease, unspecified; I08.1 Rheumatic disorders of both mitral and tricuspid valves; D50.9 Iron deficiency anemia, unspecified; I27.2 Other secondary pulmonary hypertension; Z79.899 Other long term (current) drug therapy; Z88.8 Allergy status to other drugs, medicaments and biological substances; Z90.710 Acquired absence of both cervix and uterus

== ENCOUNTER → 2016-11-26 | Outpatient (REF) | payer MEDICARE, OTHER ==
[~2016-11-26] MED LIST changes: +AMIO20TA PO; +ASPI325T PO; +ELIQ2.5T PO; +FERR325T PO; +LOPR1TAB7 PO; +LOSA50TA20 PO
[2016-11-26 20:17] LABS: MEAN CORPUSCULAR HEMOGLOBIN 24.5 pg (27.0-33.0); MEAN CORPUSCULAR HGB CONC 29.8 g/dl (32.0-36.5); MEAN CORPUSCULAR VOLUME 82.3 fl (80.0-96.0); RED CELL DISTRIBUTION WIDTH 18.4 % (11.5-14.5); WHITE BLOOD COUNT 7.9 K/mm3 (4.0-10.0)
[2016-11-26 20:51] LABS: VITAMIN B12 LEVEL 358 PG/ML (247-911)
[2016-11-26 20:52] LABS: FOLATE > 24.0 NG/ML (>5.4)
[2016-11-26 20:54] LABS: ALBUMIN 3.6 GM/DL (3.2-5.2); ALKALINE PHOSPHATASE 99 U/L (45-117); ALT/SGPT 14 U/L (12-78); ANION GAP 9 MEQ/L (8-16); AST/SGOT 20 U/L (15-37); BILIRUBIN,TOTAL 0.5 MG/DL (0.2-1.0); BLOOD UREA NITROGEN 48 MG/DL (7-18); CALCIUM LEVEL 9.2 MG/DL (8.8-10.2); CARBON DIOXIDE LEVEL 24 MEQ/L (21-32); CHLORIDE LEVEL 106 MEQ/L (98-107); CHOLESTEROL LEVEL 198 MG/DL (<200); FREE T4 1.57 NG/DL (0.76-1.46); GLOMERULAR FILTRATION RATE 32.7 (>32); GLUCOSE, FASTING 108 MG/DL (83-110); SODIUM LEVEL 139 MEQ/L (136-145); TOTAL PROTEIN 7.2 GM/DL (6.4-8.2); TRIGLYCERIDES LEVEL 77 MG/DL (<150)
[2016-11-26 20:58] LABS: POTASSIUM SERUM 5.3 MEQ/L (3.5-5.1)
== END ==
LOC: M LAB REF 09:58
PROVIDERS: ATTEND Internal Medicine Cardiovascular Disease
DX: I48.91 Unspecified atrial fibrillation (principal); Z79.899 Other long term (current) drug therapy

== ENCOUNTER 2017-03-13 03:29 | Inpatient (IN) | payer MEDICARE, OTHER ==
[~2017-03-13] VITALS: Ht 157.5 cm; Wt 55.3 kg
[~2017-03-13 03:29] MED LIST changes: +AMIO200T PO; -AMIO20TA PO; +BENI1TAB PO; -BENI20TA5 PO; +FERR1TAB8 PO; -FERR325T PO; -FOLI1TAB2 PO; +FOLI1TAB4 PO; +HYDR-3911 PO; -HYDR-4267 PO; +LEVA1TAB2 PO; -LEVA500T PO; -NITR100C37 PO; +NITR100C39 PO; -ZETI10TA2 PO; +ZETI10TA30 PO
[2017-03-13] MEDS ORDERED: LABE20TAB PO (03:48)
[2017-03-13] MEDS ORDERED: LOSA50TA20 PO (03:48)
[2017-03-13 04:06] LABS: BASO % 0.2 % (0.0-1.0); EOS # 0.2 K/mm3 (0.0-0.50); EOS % 1.1 % (0.0-3.0); LARGE UNSTAINED CELL # 0.1 K/mm3 (0.0-0.4); LYMPH # 0.6 K/mm3 (1.5-4.5); LYMPH % 4.4 % (24.0-44.0); MEAN CORPUSCULAR HEMOGLOBIN 25.4 pg (27.0-33.0); MEAN CORPUSCULAR HGB CONC 29.8 g/dl (32.0-36.5); MEAN CORPUSCULAR VOLUME 85.3 fl (80.0-96.0); MONO # 0.7 K/mm3 (0.0-0.8); MONO % 4.7 % (0.0-5.0); NEUTROPHILS # 12.8 K/mm3 (1.8-7.7); NEUTROPHILS % 88.7 % (36.0-66.0); PLATELET COUNT, AUTOMATED 265 k/mm3 (150-450); RED CELL DISTRIBUTION WIDTH 16.9 % (11.5-14.5); WHITE BLOOD COUNT 14.4 K/mm3 (4.0-10.0)
[2017-03-13 04:08] LABS: INR 1.14
[2017-03-13 04:23] LABS: ALBUMIN 3.3 GM/DL (3.2-5.2); ALBUMIN/GLOBULIN RATIO 0.87 (1.00-1.93); BILIRUBIN,DIRECT 0.4 MG/DL (0.0-0.2); BILIRUBIN,TOTAL 1.3 MG/DL (0.2-1.0); CALCIUM LEVEL 9.1 MG/DL (8.8-10.2); CREATININE FOR GFR 1.35 MG/DL (0.55-1.02); GLOMERULAR FILTRATION RATE 39.8 (>32); POTASSIUM SERUM 4.8 MEQ/L (3.5-5.1); TOTAL PROTEIN 7.1 GM/DL (6.4-8.2)
[2017-03-13] MEDS: METOPROLOL 5 MG/5 ML VIAL IV PRN ×3 (04:42→05:09)
[2017-03-13] MEDS ORDERED: METOPROLOL 5 MG/5 ML VIAL IV SCH (04:45)
[2017-03-13] MEDS ORDERED: FUROSEMIDE 40 MG/4 ML VIAL (J1940) IV ONE (04:45)
--- NOTE | 2017-03-13 04:50 | REPUSA ---
HISTORY: Shortness of breath or chest pain. TECHNIQUE : Single view of the chest were obtained. COMPARISON : None FINDINGS: The cardiac silhouette is moderately enlarged.There is moderate central pulmonary venous congestion. Minimal right pleural effusion. Small left pleural effusion. Passive atelectatic airspace disease of the lower lobes. IMPRESSION: Decompensated congestive heart failure. Pleural effusions. Interstitial pulmonary edema. Thank you for the kind referral of this patient.
[2017-03-13] MEDS ORDERED: ONDANSETRON 4MG/2ML VIAL (J2405) IV ONE (05:15)
[2017-03-13] MEDS ORDERED: AMIO200T PO (05:30)
[2017-03-13] MEDS ORDERED: METOPROLOL TART 50 MG TAB PO ONE (05:30)
[2017-03-13] MEDS ORDERED: LOPR1TAB7 PO (05:30)
[2017-03-13] MEDS ORDERED: PATIENT COMMENT (05:31)
--- NOTE | 2017-03-13 07:42 | HPE ---
DATE OF ADMISSION: 03/13/2017 PRIMARY CARE PROVIDER: Dr. Mckenzie of [place]. CO FOUNDER AND DIRECTOR: Dr. Mckenzie. HISTORY OF PRESENT ILLNESS: This patient is a 86-year-old female with a past medical history significant for atrial fibrillation (A-fib), congestive heart failure, hyperlipidemia, chronic anemia, chronic kidney disease who presented to [facility] on March 13, 2017 for severe palpitations with worsening difficulty breathing. 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 She started having worsening shortness of breath and the patient was noted to have yellow sputum. The patient had a similar episode before, the patient was diagnosed in A-fib since June 2016. At that time the patient was on metoprolol and amiodarone. However, since July the patient has not had any recurrence of symptoms so she stopped the metoprolol and amiodarone by herself. The patient also has a diagnosis of congestive heart failure. The patient was also noted to have worsening of the lower extremities and the patient started having skin changes and the patient recently started with a creative services specialist, Dr. Gamez for bilateral lower extremities with ulcers. ALLERGIES: Adverse affect to LASIX (per patient the patient becomes more fluid over loaded with LASIX). PAST MEDICAL HISTORY: 1. Atrial fibrillation with rapid ventricular response (RVR). 2. Diastolic congestive heart failure. 3. Hypercholesterolemia. 4. Hypertension. 5. Chronic anemia. 6. Degenerative disc disease. 7. Chronic kidney disease. PAST SURGICAL HISTORY: 1. Complete hysterectomy. 2. Tonsillectomy. 3. Bilateral cataracts. SOCIAL HISTORY: Denies smoking, denies alcohol use, denies recreational drug use. The patient has a DO NOT RESUSCITATE, DO NOT INTUBATE (DNR/DNI). REVIEW OF SYSTEMS: GENERAL: Generalized discomfort. Denies any fever or chills. HEENT: No vision change, no auditory changes. CARDIOVASCULAR: Started having acute worsening of palpitations since the morning of March 12, 2017. The patient does have a history of A-Fib with RVR. The patient has not been taking her rate control medications. RESPIRATORY: The patient started to have worsening of shortness of breath. The patient also noted to have a lot of sputum which she says is normal for her. GI: No nausea, no vomiting, no abdominal pain or diarrhea. MUSCULOSKELETAL: The patient has chronic lower extremity swelling with dermatitis and ulcers, recently established with Dr. Gamez for bilateral lower extremity with ulcers. NEUROLOGICAL: No numbness or tingling. PHYSICAL EXAMINATION VITAL SIGNS: Temperature 98.3, pulse 120, blood pressure 128/88, pulse oximetry 97% with 3 liters nasal cannula. GENERAL: Mild distress secondary to severe shortness of breath. Awake, alert and oriented times three. HEENT: Normocephalic atraumatic. Extraocular muscles grossly intact. CARDIOVASCULAR: Irregular, irregular. Heart rate 120 to 130/ LUNGS: Positive crackles bilaterally, some wheezes. ABDOMEN: Soft, nontender, nondistended, bowel sounds present. No rebound, no guarding. EXTREMITIES: There are compresssion stocking and dressing wrapped around her leg below the knee and an area above the compression stocking shows there is still significant amount of swelling. LABORATORY DATA: WBC 14.4, hemoglobin 11, hematocrit 37, platelet count is 265. Sodium 143, potassium 4.8, chloride 110, carbon dioxide 22, BUN 41, creatinine 1.35, GFR 39.8, fasting glucose 322, calcium 9.1, total bilirubin 13, direct bilirubin 0.4, AST 11, ALT 18, alkaline phosphatase 111, total CK 36, troponin I 0.02. BNP 722, total protein 7.1, albumin 3.3. IMAGING STUDIES: Portable chest x-ray of decompensated congestive heart failure. Pleural effusion. Interstitial pulmonary edema. ASSESSMENT AND PLAN: 1. Uncontrolled atrial fibrillation (A-Fib) with rapid ventricular response (RVR). The patient was admitted to the progressive care unit (PCU) under inpatient status. The patient has not been compliant with her home medications at home. The patient is supposed to take metoprolol and amiodarone; however, since July the patient has discontinued her medications. In the emergency room the patient is receiving intravenous (IV) dose of metoprolol and the patient was started on oral metoprolol. At the time of encounter the heart rate improved from 150s to 120s. Will consider consult with cardiology for very difficult control of A-Fib. 2. Diastolic congestive heart failure exacerbation. The patient shows no sign of fluid overload. Will start aggressive IV diuresis with holding parameters. The patient will be on 1.5 liter fluid restriction daily. 3. Hypertension. Losartan will be on hold because patient requires aggressive diuresis. The patient is not hypertensive and the patient may have acute on chronic renal injury. 4. Chronic anemia. Continue to monitor. No sign of active bleeding at this moment. 5. Mild leukocytosis. WBC of 14.4. The patient does not have any fever or chill. Will follow with sputum cultures. The mild leukocytosis may be due to reactive recurrent physical stress. 6. Elevated glucose level. Today the patient presented with fasting glucose of 322. The patient does not have any diagnosis of diabetes. Will follow with A1c. 7. Chronic venostasis change with ulcers. The patient has been followed with Dr. Gamez in the outpatient setting on a weekly basis. The patient has a home health nurse to help with dressing changes. The patient is due for a dressing change in the next 1-2 days. 8. History of hypercholesterolemia. The patient will continue Zetia. 9. Deep venous thrombosis (DVT) prophylaxis. The patient will be on Heparin. This is a new medication.
[2017-03-13 08:00] VITALS: BP 118/77
[2017-03-13] MEDS ORDERED: METOPROLOL TART 25 MG TABLET PO SCH (09:00)
[2017-03-13] MEDS: FUROSEMIDE 100 MG/10 ML VIAL (J1940) IV SCH ×2 (09:00→12:49)
[2017-03-13] MEDS ORDERED: AMIODARONE 200 MG TAB (PACERONE) PO SCH (09:00)
[2017-03-13] MEDS ORDERED: ELIQ2.5T PO (10:46)
[2017-03-13] MEDS ORDERED: BUME1TA PO (10:46)
[2017-03-13] MEDS ORDERED: FERR1TAB8 PO (10:53)
[2017-03-13 12:00] VITALS: BP 131/77
[2017-03-13] MEDS: METOPROLOL TART 50 MG TAB PO SCH ×2 (12:50→18:00)
[2017-03-13] MEDS: APIXABAN 2.5 MG TAB (ELIQUIS) PO SCH ×2 (13:57→21:01)
[2017-03-13] MEDS: FERROUS SULFATE 325MG TAB PO SCH (13:57)
[2017-03-13] MEDS: AMIODARONE 200 MG TAB (PACERONE) PO SCH ×2 (13:57→21:01)
[2017-03-13 16:00] VITALS: BP 123/66
[2017-03-13 18:39] VITALS: BP 122/72
[2017-03-13 20:00] VITALS: BP 122/71
[2017-03-13] MEDS: EZETIMIBE 10 MG TAB (ZETIA) PO SCH (21:01)
[2017-03-13] MEDS: FOLIC ACID 1 MG TAB PO SCH (21:01)
[2017-03-14] VITALS: BP 145/80
[2017-03-14] MEDS: METOPROLOL TART 50 MG TAB PO SCH ×4 (00:09→16:59)
[2017-03-14 04:00] VITALS: BP 118/67
[2017-03-14 05:57] LABS: MEAN CORPUSCULAR HEMOGLOBIN 25.9 pg (27.0-33.0); MEAN CORPUSCULAR HGB CONC 30.2 g/dl (32.0-36.5); MEAN CORPUSCULAR VOLUME 85.8 fl (80.0-96.0); RED CELL DISTRIBUTION WIDTH 16.9 % (11.5-14.5); WHITE BLOOD COUNT 12.4 K/mm3 (4.0-10.0)
[2017-03-14 06:12] LABS: CREATININE FOR GFR 1.33 MG/DL (0.55-1.02); GLOMERULAR FILTRATION RATE 40.5 (>32); POTASSIUM SERUM 4.2 MEQ/L (3.5-5.1)
[2017-03-14 07:40] VITALS: BP 110/80
--- NOTE | 2017-03-14 07:48 | ECGEPIP ---
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
[2017-03-14] MEDS: FUROSEMIDE 40 MG/4 ML VIAL (J1940) IV SCH ×4 (08:52→16:38)
[2017-03-14] MEDS: FERROUS SULFATE 325MG TAB PO SCH (08:52)
[2017-03-14] MEDS: APIXABAN 2.5 MG TAB (ELIQUIS) PO SCH ×2 (08:52→21:05)
[2017-03-14] MEDS: AMIODARONE 200 MG TAB (PACERONE) PO SCH ×2 (09:45→21:05)
[2017-03-14 11:02] VITALS: BP 122/60
--- NOTE | 2017-03-14 11:23 | IPNPDOC ---
Text Note Date of Service The patient was seen on 03/14/17. NOTE Subjective: Patient is an 86 year old female with a PMHx of [place] with RVR, Systolic CHF, HTN, DLP, CKD3, Anemia and Degenerative disk disease who presented to the ER with complaints of SOB and palpitations. Patient had ntoed that she had stopped taking her medications (Metoprolol, Amiodarone and Eliquis ) because she had thought that her palpitations had resolved. She noted that she has had a productive cough and lower extremity edema. She has been following with Dr. Gamez as an outpatient for evaluation of these ulcers. In the ER patient received metoprolol IV for rate control and was transitioned to oral metoprolol. Her amiodarone and anticoagulation have been restarted. Patient was seen and examined at the bedside. Currently she notes that her palpitations have resolved and that her breathing is doing much better at this time. Objective: Vitals (See below) General: Lying in bed, no acute distress, comfortable, AAOx3 HEENT: NC, AT CVS: IrIr, +S1S2 Lungs: Fair air entry b/l, mild crackles at b/l lung bases Abdomen: Soft, ND, NT Extremities: 2+ Edema bilaterally, - Calf tenderness Assessment and plan: Atrial fibrillation with RVR - likely 2/2 non-compliance with medications - Presented with palpitations and SOB - Physical with IrIr rhythm, crackles a lung bases, LE edema - BNP elevated at 722; No troponin elevation - CXR 03/13: decompensated CHF, pleural effusions, interstitial pulmonary edema - ECHO 10/2016: Mild LV dysfunction, Severe tricuspid insufficiency, High CVP, moderately severe pulmonary HTN, severe biatrial enlargement - c/w Amiodarone 400 BID, Metoprolol tartrate 50 q6h and Eliquis 2.5 BID - Dr. Gómez (Cardiology) on board; appreciate their input Decompensated Systolic CHF - likely 2/2 non-compliance with medications and atrial fibrillation with RVR - See above - Maintain negative output, follow ins/outs, daily weights and head of bed elevation - Fluid restriction - Will c/w diuretic therapy with Lasix 40 IV BID HTN - BP well controlled - c/w Metoprolol tartrate CKD3 - Cr baseline of 1.2 - Cr currently at 1.3 Chronic anemia - Hg baseline of 8-9 - Currently at 10.1 Leukocytosis - Trending down - no evidence of infection, afebrile - hold off on antibiotics at this time Hyperglycemia - likely 2/2 newly diagnosed DM2 - A1c of 9.0% - Will start ISS DLP - c/w Ezetimibe Chronic venous stasis ulcers - Follows with Dr. Gamez as an outpatient - c/w Wound care nurse management DVT prophylaxis - c/w full anticoagulation with Eliquis VS,Fishbone, I+O VS, Fishbone, I+O Laboratory Tests 03/14/17 05:31 Red Blood Count 3.88 L, Mean Corpuscular Volume 85.8, Mean Corpuscular Hemoglobin 25.9 L, Mean Corpuscular Hemoglobin Concent 30.2 L, Red Cell Distribution Width 16.9 H, Calcium Level 8.0 L Vital Signs Date Time Temp Pulse Resp B/P (MAP) Pulse Ox O2 Delivery O2 Flow Rate FiO2 03/14/17 11:06 95 Room Air 03/14/17 11:05 105 122/60 03/14/17 11:04 2.0 03/14/17 11:02 97.6 22 I&O- Last 24 Hours up to 6 AM 03/14/17 06:00 Output Total 2050 ml Balance -2050 ml HENRRY PICKETT MD Mar 14, 2017 11:23
[2017-03-14] MEDS ORDERED: GLUCAGON FOR INJ 1 MG VIAL (J1610) SC PRN (11:30)
[2017-03-14] MEDS ORDERED: DEXTROSE 50% 50 ML SYRINGE IV PRN (11:30)
[2017-03-14] MEDS ORDERED: GLUCOSE 4 GM CHEW TABLET PO PRN (11:30)
[2017-03-14] MEDS: HumaLOG INSULIN (NovoLOG) PER UNIT SC SCH ×3 (11:40→21:06)
[2017-03-14] MEDS: ACETAMINOPH W/CODEINE #3 TAB UD PO PRN (14:03)
[2017-03-14 16:00] VITALS: BP 118/68
[2017-03-14 20:43] VITALS: BP 115/57
[2017-03-14] MEDS: FOLIC ACID 1 MG TAB PO SCH (21:04)
[2017-03-14] MEDS: EZETIMIBE 10 MG TAB (ZETIA) PO SCH (21:05)
[2017-03-15] VITALS (7 sets, daily range): BP systolic 110–126; BP diastolic 67–82
[2017-03-15] MEDS: ACETAMINOPH W/CODEINE #3 TAB UD PO PRN ×2 (00:35→20:29)
[2017-03-15] MEDS: METOPROLOL TART 50 MG TAB PO SCH ×4 (00:36→17:37)
[2017-03-15 05:27] LABS: MEAN CORPUSCULAR HEMOGLOBIN 25.8 pg (27.0-33.0); MEAN CORPUSCULAR HGB CONC 30.1 g/dl (32.0-36.5); MEAN CORPUSCULAR VOLUME 85.8 fl (80.0-96.0); RED CELL DISTRIBUTION WIDTH 17.3 % (11.5-14.5); WHITE BLOOD COUNT 11.4 K/mm3 (4.0-10.0)
[2017-03-15 05:54] LABS: CALCIUM LEVEL 8.8 MG/DL (8.8-10.2); CREATININE FOR GFR 1.43 MG/DL (0.55-1.02); GLOMERULAR FILTRATION RATE 37.2 (>32); POTASSIUM SERUM 3.7 MEQ/L (3.5-5.1)
[2017-03-15] MEDS: HumaLOG INSULIN (NovoLOG) PER UNIT SC SCH ×4 (08:35→20:30)
[2017-03-15] MEDS: AMIODARONE 200 MG TAB (PACERONE) PO SCH ×2 (08:35→20:29)
[2017-03-15] MEDS: APIXABAN 2.5 MG TAB (ELIQUIS) PO SCH ×2 (08:35→20:30)
[2017-03-15] MEDS: FERROUS SULFATE 325MG TAB PO SCH (08:35)
[2017-03-15] MEDS: FUROSEMIDE 40 MG/4 ML VIAL (J1940) IV SCH (08:36)
[2017-03-15] MEDS: ACETAMINOPHEN TAB 650MG DOSE (2X325MG) PO PRN (10:43)
[2017-03-15] MEDS ORDERED: MAG SULF 1GM/100ML (MAG RUN) 1 GM in APPROPRIATE DILUENT 1 EA IV ONE (11:00)
--- NOTE | 2017-03-15 11:15 | IPN ---
DATE OF SERVICE: 03/15/2017 Mrs. Hernandez is known to me from her previous admission in October. Back then, she had somewhat similar presentation with atrial fibrillation (AFib) and rapid ventricular response (RVR) and congestive heart failure. Echocardiogram then revealed mild left ventricle (LV) systolic dysfunction but probably moderately severe if not severe mitral insufficiency and severe tricuspid insufficiency and at least moderately severe pulmonary hypertension. She was started on amiodarone and beta blockers, and she was also obviously diuresed. Leaving the hospital, she felt much better. She normally follows with Dr. Mckenzie, but it is not clear to me whether she was actually seen since. But, in any case, she felt well and tells me that she discontinued most of her medications approximately 1 week after discharge. Lately, though, there has been progressive dyspnea. On admission here 2 days ago, she was again found to be in AFib with RVR and had severe congestive heart failure. She has been diuresed so far quite successfully, lost every day at least 1500 mL of fluids. Her weight is already down about more than 2 kg. She feels much better but still not quite well. Denies any chest pain or palpitations. Blood pressure 119/72, heart rate has been from 80s to 100- and-teens. Is atrial fibrillation. She had two runs of nonsustained ventricular tachycardia. Saturation 92% on room air. Weight is documented at 58.8 kg. Her jugular venous pressure (JVP) is still high. Lungs still reveal bilateral end inspiratory crackles throughout all lung [place] and diminished breath sounds over both bases. Heart examination reveals tachycardia. There is a murmur, both of aortic stenosis and mitral insufficiency, very prominent. I do not appreciate karina gallop, as such. Abdomen is soft, nontender. There is minimal peripheral edema ; and neurologically, she seems mostly intact. LABORATORY-TRINIDAD: Hemoglobin 10.5, hematocrit 34.8, platelet count 270,000. Basic metabolic panel: Potassium 3.7, BUN 24, creatinine 1.4, glucose 187. Her TSH on admission was 0.5. I reviewed her admission chest x-ray that is consistent with cardiomegaly, bilateral pleural effusions, and congestive heart failure. ASSESSMENT AND PLAN: Mrs. Hernandez is an 86-year-old female who has at this point persistent atrial fibrillation. Based on our information, it probably has been present since October. She was rate controlled upon discharge, and I thought that there would be a potential for outpatient cardioversion, but it obviously never happened, and she actually stopped taking her medications. Now, the medications were restarted, including anticoagulation. At this point, I would continue current course. The AFib is still not perfectly well controlled, but I suspect that each day it will improve. She is being diuresed; and even though her creatinine is slightly higher than it was previously, I think we should continue because she is still very volume overloaded. Unfortunately, her underlying problems, which are probably severe or at least moderately severe mitral insufficiency and secondary pulmonary hypertension, are not inherently correctable. The patient is DO NOT INTUBATE (DNI)/DO NOT RESUSCITATE (DNR), but I do believe that we will be able to accomplish at least some symptomatic improvement. TD
[2017-03-15] MEDS: SPIRONOLACTONE 25 MG TAB PO SCH (12:21)
--- NOTE | 2017-03-15 13:53 | IPNPDOC ---
Text Note Date of Service The patient was seen on 03/15/17. NOTE Subjective: Patient is an 86 year old female with a PMHx of Akaylee with RVR, Systolic CHF, HTN, DLP, CKD3, Anemia and Degenerative disk disease who presented to the ER with complaints of SOB and palpitations. Patient had ntoed that she had stopped taking her medications (Metoprolol, Amiodarone and Eliquis ) because she had thought that her palpitations had resolved. She noted that she has had a productive cough and lower extremity edema. She has been following with Dr. Gamez as an outpatient for evaluation of these ulcers. In the ER patient received metoprolol IV for rate control and was transitioned to oral metoprolol. Her amiodarone and anticoagulation have been restarted. Patient was seen and examined at the bedside. She denies any SOB, palpitations, CP and notes that her LE edema has improved. Objective: Vitals (See below) General: Lying in bed, no acute distress, comfortable, AAOx3 HEENT: NC, AT CVS: IrIr, +S1S2 Lungs: Fair air entry b/l, mild crackles at b/l lung bases - improving Abdomen: Soft, ND, NT Extremities: 2+ Edema bilaterally - improving, - Calf tenderness Assessment and plan: Atrial fibrillation with RVR - likely 2/2 non-compliance with medications - Presented with palpitations and SOB - Physical with IrIr rhythm, crackles a lung bases, LE edema - BNP elevated at 722; No troponin elevation - CXR 03/13: decompensated CHF, pleural effusions, interstitial pulmonary edema - ECHO 10/2016: Mild LV dysfunction, Severe tricuspid insufficiency, High CVP, moderately severe pulmonary HTN, severe biatrial enlargement - c/w Amiodarone 400 BID, Metoprolol tartrate 50 q6h and Eliquis 2.5 BID - Dr. Saravia (Cardiology) on board; appreciate their input - Rate has been moderately controlled over last few days, has improved in last 24 hours; will c/w current regimen Decompensated Systolic CHF - likely 2/2 non-compliance with medications and atrial fibrillation with RVR - See above - Maintain negative output, currently at -4000cc; follow ins/outs, daily weights and head of bed elevation - Fluid restriction - Will c/w diuretic therapy with Lasix 40 IV; will reduce dose to q24h HTN - BP well controlled - c/w Metoprolol tartrate CKD3 - Cr baseline of 1.2 - Cr has shown a slight increase with diuretic therapy Chronic anemia - Hg baseline of 8-9 - Currently at 10.1 Leukocytosis - Trending down - no evidence of infection, afebrile - hold off on antibiotics at this time Hyperglycemia - likely 2/2 newly diagnosed DM2 - A1c of 9.0% - Will start ISS DLP - c/w Ezetimibe Chronic venous stasis ulcers - Follows with Dr. Gamez as an outpatient - c/w Wound care nurse management DVT prophylaxis - c/w full anticoagulation with Eliquis VS,Fishbone, I+O VS, Fishbone, I+O Laboratory Tests 03/15/17 04:40 Red Blood Count 4.05, Mean Corpuscular Volume 85.8, Mean Corpuscular Hemoglobin 25.8 L, Mean Corpuscular Hemoglobin Concent 30.1 L, Red Cell Distribution Width 17.3 H, Calcium Level 8.8 Vital Signs Date Time Temp Pulse Resp B/P (MAP) Pulse Ox O2 Delivery O2 Flow Rate FiO2 03/15/17 12:22 109 122/74 03/15/17 08:00 98.3 20 92 Room Air 03/15/17 04:00 0.0 I&O- Last 24 Hours up to 6 AM 03/15/17 06:00 Intake Total 540 ml Output Total 2150 ml Balance -1610 ml HENRRY PICKETT MD Mar 15, 2017 13:53
[2017-03-15] MEDS: EZETIMIBE 10 MG TAB (ZETIA) PO SCH (20:29)
[2017-03-15] MEDS: MAGNESIUM GLUCONATE 500 MG TAB PO SCH (20:30)
[2017-03-15] MEDS: FOLIC ACID 1 MG TAB PO SCH (20:30)
[2017-03-16 00:28] VITALS: BP 120/88
[2017-03-16] MEDS: METOPROLOL TART 50 MG TAB PO SCH ×4 (00:30→17:26)
[2017-03-16 05:28] VITALS: BP 125/85
[2017-03-16 05:38] LABS: MEAN CORPUSCULAR HEMOGLOBIN 26.2 pg (27.0-33.0); MEAN CORPUSCULAR HGB CONC 31.2 g/dl (32.0-36.5); MEAN CORPUSCULAR VOLUME 84.1 fl (80.0-96.0); RED CELL DISTRIBUTION WIDTH 17.4 % (11.5-14.5); WHITE BLOOD COUNT 11.6 K/mm3 (4.0-10.0)
[2017-03-16 05:47] LABS: CALCIUM LEVEL 9.1 MG/DL (8.8-10.2); CREATININE FOR GFR 1.39 MG/DL (0.55-1.02); GLOMERULAR FILTRATION RATE 38.5 (>32); POTASSIUM SERUM 4.1 MEQ/L (3.5-5.1)
[2017-03-16] MEDS: SPIRONOLACTONE 25 MG TAB PO SCH (07:33)
[2017-03-16] MEDS: MAGNESIUM GLUCONATE 500 MG TAB PO SCH ×2 (07:33→20:45)
[2017-03-16] MEDS: FERROUS SULFATE 325MG TAB PO SCH (07:34)
[2017-03-16] MEDS: AMIODARONE 200 MG TAB (PACERONE) PO SCH ×2 (07:34→20:45)
[2017-03-16] MEDS: APIXABAN 2.5 MG TAB (ELIQUIS) PO SCH ×2 (07:34→20:44)
[2017-03-16] MEDS: FUROSEMIDE 40 MG/4 ML VIAL (J1940) IV SCH ×2 (07:34→17:26)
[2017-03-16] MEDS: HumaLOG INSULIN (NovoLOG) PER UNIT SC SCH ×4 (07:35→20:45)
[2017-03-16] MEDS: cefTRIAXone SOD 1 GM in D5W MINI-BAG PLUS 50 ML IV SCH (07:43)
[2017-03-16 08:00] VITALS: BP 169/91
[2017-03-16] MEDS: ACETAMINOPHEN TAB 650MG DOSE (2X325MG) PO PRN (08:21)
[2017-03-16] MEDS: ACETAMINOPH W/CODEINE #3 TAB UD PO PRN (11:06)
--- NOTE | 2017-03-16 11:45 | IPN ---
DATE: 03/16/2017 Mrs. Hernandez tells me she is feeling little better today. She has been a little more active. She did some mild physical therapy (PT). She was able to walk from the bed to the restroom and that made her feel a lot better. She still gets easily short of breath, but does not have any resting dyspnea per se. No chest pain. No palpitations. Blood pressure 125/85. Heart rate is in the 100-110s. She is afebrile. Saturation is 95% on room air. Fluid balance yesterday was about 810 negative. Weight documented at 59.2, which is actually a little up compared to yesterday. She is alert and oriented appropriate. Her jugular venous distention (JVP) is about 3 cm above clavicle in the sitting position. Lungs are much clearer than yesterday. She still has diminished sounds over both bases. Heart: Exam reveals regular rhythm. Murmur of mitral regurgitation (MR) and tricuspid regurgitation (TR) is unchanged. Abdomen: Soft, nontender. There is mild indurated peripheral edema. She has bandages on both shins. Laboratory-still, basic metabolic panel with potassium 4.1, BUN 50, creatinine 1.4, GFR 39, platelet count 235,000. CBC: Hemoglobin 12.3, hematocrit 39 and platelet count 318. ASSESSMENT/PLAN: Mrs. Hernandez is an 86-year lady who has atrial fibrillation with rapid ventricular response. It has been persistent since October of this year. She presented with exacerbated congestive heart failure after she stopped taking her medications. Consequently, we put her back on her standard treatment with amiodarone 400 mg twice a day plus metoprolol with holding parameters. Her heart rate is still not completely well controlled, but she is getting better. I do think that within a day or two she will probably be at goal of heart rate below 100 at rest. Simultaneously, she is clearly volume overloaded. She still has a high CVP and she is being diuresed. I explained to her that it will take several days before we get her in target and before she will be able to go home. We again had a long discussion about her compliance with medications. The patient tries to explain to me that she actually did see Dr. Mckenzie since discharge and it is not clear to me whether she misunderstood his instructions or whether a change in medications and she made some mistake, but in any case she will need a very close followup after discharge.
[2017-03-16 12:00] VITALS: BP 159/83
--- NOTE | 2017-03-16 12:47 | IPNPDOC ---
Text Note Date of Service The patient was seen on 03/16/17. NOTE Subjective: Patient is an 86 year old female with a PMHx of Akaylee with RVR, Systolic CHF, HTN, DLP, CKD3, Anemia and Degenerative disk disease who presented to the ER with complaints of SOB and palpitations. Patient had ntoed that she had stopped taking her medications (Metoprolol, Amiodarone and Eliquis ) because she had thought that her palpitations had resolved. She noted that she has had a productive cough and lower extremity edema. She has been following with Dr. Gamez as an outpatient for evaluation of these ulcers. In the ER patient received metoprolol IV for rate control and was transitioned to oral metoprolol. Her amiodarone and anticoagulation have been restarted. Patient was seen and examined at the bedside. She notes that she continues to feel well. Denies any CP, SOB or palpitations. She notes that her LE swelling continues to improve. Objective: Vitals (See below) General: Lying in bed, no acute distress, comfortable, AAOx3 HEENT: NC, AT CVS: IrIr, +S1S2 Lungs: Fair air entry b/l, mild crackles at b/l lung bases - improving Abdomen: Soft, ND, NT Extremities: 2+ Edema bilaterally - improving, - Calf tenderness Assessment and plan: Atrial fibrillation with RVR - likely 2/2 non-compliance with medications - Presented with palpitations and SOB - Physical with IrIr rhythm, crackles a lung bases and LE edema; improving from yesterday - HR remains fluctuating between 100-120s - BNP elevated at 722; No troponin elevation - CXR 03/13: decompensated CHF, pleural effusions, interstitial pulmonary edema - ECHO 10/2016: Mild LV dysfunction, Severe tricuspid insufficiency, High CVP, moderately severe pulmonary HTN, severe biatrial enlargement - c/w Amiodarone 400 BID, Metoprolol tartrate 50 q6h and Eliquis 2.5 BID - Dr. Saravia (Cardiology) on board; appreciate their input - Will c/w current regimen and wait HR to become optimized Decompensated Systolic CHF - likely 2/2 non-compliance with medications and atrial fibrillation with RVR - See above - Maintain negative output, currently at -4000cc; follow ins/outs, daily weights and head of bed elevation - Fluid restriction - Will increase lasix to [id number] at this time as renal function has remained stable HTN - BP well controlled - c/w Metoprolol tartrate CKD3 - Cr baseline of 1.2 - Cr has shown a slight increase with diuretic therapy Chronic anemia - Hg baseline of 8-9 - Currently at 10.1 Leukocytosis - possibly 2/2 UTI - UA acquired which does show signs of infection - Urine culture acquired on 03/16; results remain pending - Will discontinue Willams catheter - Will start Ceftriaxone (Day #1) Hyperglycemia - likely 2/2 newly diagnosed DM2 - A1c of 9.0% - c/w ISS DLP - c/w Ezetimibe Chronic venous stasis ulcers - Follows with Dr. Gamez as an outpatient - c/w Wound care nurse management DVT prophylaxis - c/w full anticoagulation with Eliquis VS,Fishbone, I+O VS, Fishbone, I+O Laboratory Tests 03/16/17 04:59 Red Blood Count 4.69, Mean Corpuscular Volume 84.1, Mean Corpuscular Hemoglobin 26.2 L, Mean Corpuscular Hemoglobin Concent 31.2 L, Red Cell Distribution Width 17.4 H, Calcium Level 9.1 Vital Signs Date Time Temp Pulse Resp B/P (MAP) Pulse Ox O2 Delivery O2 Flow Rate FiO2 03/16/17 11:06 18 Room Air 03/16/17 08:00 99.1 121 169/91 (117) 94 03/16/17 04:00 0.0 I&O- Last 24 Hours up to 6 AM 03/16/17 06:00 Intake Total 340 ml Output Total 1100 ml Balance -760 ml HENRRY PICKETT MD Mar 16, 2017 12:47
[2017-03-16 16:00] VITALS: BP 125/90
[2017-03-16 19:55] VITALS: BP 127/73
[2017-03-16] MEDS: EZETIMIBE 10 MG TAB (ZETIA) PO SCH (20:44)
[2017-03-16] MEDS: FOLIC ACID 1 MG TAB PO SCH (20:44)
[2017-03-17] MEDS: METOPROLOL TART 50 MG TAB PO SCH ×5 (00:15→23:26)
[2017-03-17 00:21] VITALS: BP 112/80
--- NOTE | 2017-03-17 02:49 | CR ---
DATE OF CONSULTATION: 03/14/2017 REFERRING PROVIDER: Hillary Diez DO PRIMARY NECK FITTER: Dr. Mckenzie HISTORY OF PRESENT ILLNESS: 86-year-old woman came to the emergency room (ER) yesterday, 03/13/2017, upon the recommendation of her home health aide because she has been having increasing shortness of breath and pedal edema. She was found to be in atrial fibrillation with a rapid ventricular rate. She was admitted for further management and monitoring. Cardiology consult was called. Upon arrival at the ER, her EKG revealed atrial fibrillation with a rapid ventricular rate up to 148 beats per minute and nonspecific ST-T abnormalities. Her chest x-ray revealed a manifestation of congestive heart failure, and a serum BNP was 722 but with negative serum troponin. Her vital signs were stable with a blood pressure reported to be 152/111. It seemed that she was not taking her medication for her atrial fibrillation, and she was restarted on her amiodarone as well as beta-jonathan. Since admission, she has had a negative fluid balance of 2.0 liters. When I saw Mrs. Anabelle Hernandez this morning, she was supine in bed, in no acute distress at rest. Very pleasant woman. She denies any chest pain or palpitations, and there was no orthopnea or paroxysmal nocturnal dyspnea (PND). Her heart rate continues to be mildly elevated, up to 100-120 beats per minute, and still in atrial fibrillation. She states she feels much better. She continues to cough. She denies any hemoptysis. She denies any active bleeding. She has no nausea, vomiting, diarrhea, melena, or hematemesis. She denies any fever or chills. She stated that it seemed that she was not taking her medication regularly, but she thinks she was taking the labetalol. She has a past medical history positive for atrial fibrillation, congestive heart failure secondary to left ventricular diastolic dysfunction, hypertension, hyperlipidemia, arthritis and anemia, chronic kidney disease; and on prior echocardiogram done earlier this year, she was found to have moderate to severe mitral regurgitation and probably severe tricuspid regurgitation and pulmonary hypertension with biatrial enlargement. There is no known history of coronary artery disease, CVA, prior diabetes mellitus, thyroid disorders, liver disease. PAST SURGICAL HISTORY: Is positive for complete hysterectomy, tonsillectomy, and bilateral cataract extraction. CURRENT MEDICATIONS: - regular insulin coverage - Lasix 40 mg IV twice a day - amiodarone 200 mg by mouth twice a day - Zetia 10 mg by mouth at hour of sleep - folic acid 1 mg by mouth at hour of sleep - metoprolol tartrate 50 mg by mouth every 6 hours - apixaban 2.5 mg by mouth twice a day - iron 325 mg by mouth daily - Tylenol 650 mg by mouth every 4 hours as needed for pain or fever MEDICATIONS AT HOME: - labetalol 200 mg by mouth twice a day - Zetia 10 mg by mouth daily - folic acid 1 mg by mouth daily - Tylenol as needed for pain - losartan 50 mg by mouth daily - metoprolol tartrate 100 mg by mouth twice a day - amiodarone 200 mg by mouth twice a day - Bumex 1 mg by mouth daily - apixaban 2.5 mg by mouth twice a day - iron 325 mg by mouth daily FAMILY HISTORY: Noncontributory. SOCIAL HISTORY: Patient denies any smoking or ethyl alcohol (EtOH) abuse. She has a health care proxy, and she has DO NOT RESUSCITATE and DO NOT INTUBATE status. ALLERGIES: To FUROSEMIDE/LASIX. ON PHYSICAL EXAMINATION: Patient is alert and oriented, in no acute distress at rest, and her vital signs this morning when I saw her revealed a blood pressure of 110/80 with a pulse of 108, respirations 20, and her maximum temperature was 98.2 degrees Fahrenheit with an oxygen saturation of 99% on 3 liters nasal cannula. Examination Of The Head, Ears, Eyes, Nose, And Throat: Atraumatic. Neck: Is supple, with extended jugular. The lungs revealed minimal crackles at the bases but no wheezing. The heart examination revealed irregularly irregular heart sounds without gallops. The point of maximal impulse (PMI) is slightly displaced inferiorly. There is no rub. There is a systolic murmur, grade 1-2 over 6 at the lower left sternal border and at the apex, but could not hear any significant radiation. Abdomen: Is unremarkable. Extremities: Revealed +1 bilateral lower leg edema. Dressing noted wrapped around the lower legs below the knees. Neurological Examination: Is negative for focal deficits. LABS: BMP done today revealed a sodium of 145, potassium 4.2, chloride 107, CO2 of 28, BUN 44, creatinine 1.33, GFR 40.5, fasting glucose 250, and calcium 8.0. Troponin was less than 0.2 times three. BNP was 722. Hemoglobin A1c on 03/13/2017 was 9.0. TSH was 0.53. PT is 14.8 with an INR of 1.14 and a PTT of 38.8. CBC done today revealed WBC of 12.4, hemoglobin 10.1, hematocrit 33.3, and platelet 245,000. EKG on admission revealed atrial fibrillation with a rapid ventricular rate of 148 beats per minute and nonspecific ST-T abnormalities. There is borderline low voltage QRS complexes in the limb leads. Chest x-ray done on admission revealed cardiomegaly, bilateral pleural effusion, more on the left than the right, unfolded aorta. There are also increased markings, consistent with interstitial pulmonary edema versus some chronic changes. IMPRESSION: 1. Atrial fibrillation with a rapid ventricular rate secondary to noncompliance with treatment. 2. Congestive heart failure secondary to above. Diastolic in nature with a history of normal left ventricular ejection fraction (LVEF) earlier this year by echocardiogram. 3. Hypertension. 4. Hyperlipidemia. 5. Chronic kidney disease. 6. Diabetes mellitus. 7. Arthritis with degenerative joint disease. 8. Anemia. Mrs. Anabelle Hernandez seems to be stable from a cardiac point of view. Her symptoms have improved. Her ventricular rate also has improved. Her medications were reviewed, and I will continue the same for now; and if needed, we can add digoxin. She was restarted on the amiodarone but, based on her prior echocardiographic findings done earlier this year, it is unlikely she will go back in normal sinus rhythm. However, for the meantime, we will continue the same and that will help in controlling her heart rate. Her blood pressures seems to be under control. She is on Zetia. She probably has intolerance to statins. Will need to monitor closely her BUN, creatinine, and serum potassium. It was a pleasure to participate in the care of Mrs. Anabelle Hernandez for her underlying cardiac condition. I will continue to monitor her along with you while in the hospital. Over the weekend, Dr. Sheridan Saravia will be seeing her. Please do not hesitate to call if any questions. TD
[2017-03-17 04:25] VITALS: BP 121/82
[2017-03-17 05:27] LABS: MEAN CORPUSCULAR HEMOGLOBIN 25.8 pg (27.0-33.0); MEAN CORPUSCULAR HGB CONC 30.1 g/dl (32.0-36.5); MEAN CORPUSCULAR VOLUME 85.8 fl (80.0-96.0); RED CELL DISTRIBUTION WIDTH 17.9 % (11.5-14.5); WHITE BLOOD COUNT 10.6 K/mm3 (4.0-10.0)
[2017-03-17 05:41] LABS: CALCIUM LEVEL 9.5 MG/DL (8.8-10.2); CREATININE FOR GFR 1.47 MG/DL (0.55-1.02); GLOMERULAR FILTRATION RATE 36.1 (>32); POTASSIUM SERUM 3.3 MEQ/L (3.5-5.1)
[2017-03-17] MEDS: ACETAMINOPH W/CODEINE #3 TAB UD PO PRN (06:00)
[2017-03-17] MEDS ORDERED: POTASSIUM CHLORIDE 10 MEQ SR TABLET PO ONE (07:30)
[2017-03-17] MEDS: HumaLOG INSULIN (NovoLOG) PER UNIT SC SCH ×4 (07:42→21:00)
[2017-03-17 08:00] VITALS: BP_SYST 114; BP_SYST 131; BP_DIAS 56; BP_DIAS 70
[2017-03-17] MEDS: FUROSEMIDE 40 MG/4 ML VIAL (J1940) IV SCH ×2 (08:40→16:44)
[2017-03-17] MEDS: AMIODARONE 200 MG TAB (PACERONE) PO SCH ×2 (08:41→20:47)
[2017-03-17] MEDS: FERROUS SULFATE 325MG TAB PO SCH (08:41)
[2017-03-17] MEDS: SPIRONOLACTONE 25 MG TAB PO SCH (08:42)
[2017-03-17] MEDS: APIXABAN 2.5 MG TAB (ELIQUIS) PO SCH ×2 (08:42→20:48)
[2017-03-17] MEDS: MAGNESIUM GLUCONATE 500 MG TAB PO SCH ×2 (08:42→20:47)
[2017-03-17] MEDS: cefTRIAXone SOD 1 GM in D5W MINI-BAG PLUS 50 ML IV SCH (08:43)
--- NOTE | 2017-03-17 08:59 | IPN ---
DATE: 03/17/2017 Mrs. Hernandez had a good night she was able to sleep for most of the time. She has no specific complaints today. She is making some progress with physical therapy. Blood pressure 114/70, heart rate from 100-120, is afebrile. Saturation 93% on room air. Fluid balance yesterday was documented about equal, but I think that both intake and output are not correctly recorded. Weight 58.8, which is a little bit down since yesterday. CVP is still about 4 cm above clavicle. Lungs still reveal diminished breath sounds over both bases, but I no longer appreciate any crackles. Heart exam irregularly irregular. No change since yesterday. There is indurated peripheral edema but it is improving. Laboratory still, CBC hemoglobin 12.3, hematocrit 41 and basic metabolic panel potassium 3.3, BUN 47, creatinine 1.5, slightly up since yesterday. ASSESSMENT/PLAN: Mrs. Hernandez is a 86-year-old female who has severe mitral and tricuspid insufficiency and presents with atrial fibrillation with RVR and congestive heart failure after she stopped taking her medications because she felt well. Even though her heart rate is still not well controlled, we are making progress and as the amiodarone becomes more and more effective, I am convinced that the heart rate will get control within the next few days. Otherwise, I would continue current medications. Her potassium was already replaced. She is anticoagulated with apixaban. She asked me to follow her up after discharge, which I will do even though she has her melter loader is Dr. Mckenzie.
[2017-03-17 12:00] VITALS: BP 124/82
--- NOTE | 2017-03-17 14:24 | IPNPDOC ---
Text Note Date of Service The patient was seen on 03/17/17. NOTE Subjective: Patient is an 86 year old female with a PMHx of Akaylee with RVR, Systolic CHF, HTN, DLP, CKD3, Anemia and Degenerative disk disease who presented to the ER with complaints of SOB and palpitations. Patient had ntoed that she had stopped taking her medications (Metoprolol, Amiodarone and Eliquis ) because she had thought that her palpitations had resolved. She noted that she has had a productive cough and lower extremity edema. She has been following with Dr. Gamez as an outpatient for evaluation of these ulcers. In the ER patient received metoprolol IV for rate control and was transitioned to oral metoprolol. Her amiodarone and anticoagulation have been restarted. Patient was seen and examined at the bedside. She has reported that yesterday she had an episode of palpitations and diaphoresis, but was short lived. She since has not experienced this. She denies any other issues. Denies any dysuria. Objective: Vitals (See below) General: Lying in bed, no acute distress, comfortable, AAOx3 HEENT: NC, AT CVS: IrIr, +S1S2 Lungs: Fair air entry b/l, no appreciable crackles Abdomen: Soft, ND, NT Extremities: 2+ Edema bilaterally - continues to improve, - Calf tenderness Assessment and plan: Atrial fibrillation with RVR - likely 2/2 non-compliance with medications - Presented with palpitations and SOB - Physical with IrIr rhythm and LE edema; HR remains closer to 100-110, but periods of 120-130s - BNP on admission of 722; No troponin elevation - CXR 03/13: decompensated CHF, pleural effusions, interstitial pulmonary edema - ECHO 10/2016: Mild LV dysfunction, Severe tricuspid insufficiency, High CVP, moderately severe pulmonary HTN, severe biatrial enlargement - c/w Amiodarone 400 BID, Metoprolol tartrate 50 q6h and Eliquis 2.5 BID - Dr. Saravia (Cardiology) on board; appreciate their input, will c/w current regimen until HR is optimized Decompensated Systolic CHF - likely 2/2 non-compliance with medications and atrial fibrillation with RVR - See above - Maintain negative output, currently -3700cc and maintain fluid restriction - c/w lasix to [id number] at this time as renal function has remained stable HTN - BP well controlled - c/w Metoprolol tartrate; will switch to long acting succinate when optimized CKD3 - Cr baseline of 1.2 - Cr has shown a slight increase with diuretic therapy Chronic anemia - Hg baseline of 8-9 - Currently at 10.1 Leukocytosis - possibly 2/2 UTI - UA 03/16: Positive for infection; Urine culture acquired on 03/16; results remain pending - s/p Willams catheter - c/w Ceftriaxone (Day #2) Hyperglycemia - likely 2/2 Newly diagnosed DM2 - A1c of 9.0% - c/w ISS - Will order diabetic teaching DLP - c/w Ezetimibe Chronic venous stasis ulcers - Follows with Dr. Gamez as an outpatient - c/w Wound care nurse management DVT prophylaxis - c/w full anticoagulation with Eliquis VS,Fishbone, I+O VS, Fishbone, I+O Laboratory Tests 03/17/17 04:35 Red Blood Count 4.86, Mean Corpuscular Volume 85.8, Mean Corpuscular Hemoglobin 25.8 L, Mean Corpuscular Hemoglobin Concent 30.1 L, Red Cell Distribution Width 17.9 H, Calcium Level 9.5 Vital Signs Date Time Temp Pulse Resp B/P (MAP) Pulse Ox O2 Delivery O2 Flow Rate FiO2 03/17/17 12:39 Room Air 03/17/17 12:05 100 124/82 03/17/17 12:00 99.0 18 96 03/16/17 04:00 0.0 I&O- Last 24 Hours up to 6 AM 03/17/17 06:00 Intake Total 460 ml Balance 460 ml HENRRY PICKETT MD Mar 17, 2017 14:24
[2017-03-17 16:00] VITALS: BP 115/79
[2017-03-17 20:00] VITALS: BP 119/83
[2017-03-17] MEDS: FOLIC ACID 1 MG TAB PO SCH (20:47)
[2017-03-17] MEDS: EZETIMIBE 10 MG TAB (ZETIA) PO SCH (20:47)
[2017-03-17] MEDS: SLF 3 ML SYR IV SCH (20:51)
[2017-03-18 00:06] VITALS: BP 129/68
[2017-03-18 04:00] VITALS: BP 128/73
[2017-03-18] MEDS: METOPROLOL TART 50 MG TAB PO SCH ×3 (05:32→17:42)
[2017-03-18] MEDS: SLF 3 ML SYR IV SCH ×3 (05:33→21:32)
[2017-03-18 05:42] LABS: MEAN CORPUSCULAR HGB CONC 30.7 g/dl (32.0-36.5); MEAN CORPUSCULAR VOLUME 84.7 fl (80.0-96.0); RED CELL DISTRIBUTION WIDTH 17.9 % (11.5-14.5)
[2017-03-18 06:05] LABS: CALCIUM LEVEL 9.2 MG/DL (8.8-10.2); CREATININE FOR GFR 1.38 MG/DL (0.55-1.02); GLOMERULAR FILTRATION RATE 38.8 (>32); POTASSIUM SERUM 3.6 MEQ/L (3.5-5.1)
[2017-03-18] MEDS: HumaLOG INSULIN (NovoLOG) PER UNIT SC SCH ×4 (07:40→21:00)
[2017-03-18] MEDS: ACETAMINOPH W/CODEINE #3 TAB UD PO PRN ×2 (07:40→21:40)
[2017-03-18] MEDS: ERTAPENEM SODIUM 0.5 GM in NS 50 ML IV SCH (07:41)
[2017-03-18 07:45] VITALS: BP 130/86
[2017-03-18] MEDS ORDERED: ERTAPENEM SODIUM 1 GM in NS MINI-BAG PLUS 50 ML IV SCH (08:00)
[2017-03-18] MEDS: FUROSEMIDE 40 MG/4 ML VIAL (J1940) IV SCH ×2 (08:29→16:34)
[2017-03-18] MEDS: MAGNESIUM GLUCONATE 500 MG TAB PO SCH ×2 (08:29→21:31)
[2017-03-18] MEDS: APIXABAN 2.5 MG TAB (ELIQUIS) PO SCH ×2 (08:29→21:30)
[2017-03-18] MEDS: SPIRONOLACTONE 25 MG TAB PO SCH (08:29)
[2017-03-18] MEDS: FERROUS SULFATE 325MG TAB PO SCH (08:29)
[2017-03-18] MEDS: AMIODARONE 200 MG TAB (PACERONE) PO SCH ×2 (08:30→21:31)
[2017-03-18 12:00] VITALS: BP 144/78
[2017-03-18 13:23] LABS: CREATININE FOR GFR 1.47 MG/DL (0.55-1.02); GLOMERULAR FILTRATION RATE 36.1 (>32); MAGNESIUM LEVEL 2.2 MG/DL (1.8-2.4); POTASSIUM SERUM 3.5 MEQ/L (3.5-5.1)
[2017-03-18] MEDS ORDERED: POTASSIUM CHLORIDE 10 MEQ SR TABLET PO ONE (13:45)
[2017-03-18 16:00] VITALS: BP 128/72
[2017-03-18 20:00] VITALS: BP 119/67
--- NOTE | 2017-03-18 21:14 | IPN ---
DATE: 03/18/2017 Mrs. Hernandez is feeling better. She recognizes that her activity is slowly better tolerated and dyspnea has pretty much resolved. Her heart rate is also gradually slowing down. Vital signs: Today blood pressure 133/70, heart rate has been 80s. She is afebrile. Saturation 99% on room air. Fluid balance yesterday was documented as positive, but it is because the output was not well recorded. Weight is 55.9 kg, which is actually considerable weight loss since admission. JVP is still about 2 or 3 cm above clavicle. Lungs are essentially clear on the left. There are diminished breath sounds over right base. Heart: Exam is unchanged. Irregular rhythm. It is lower than before, but the murmurs of mitral regurgitation (MR) and tricuspid regurgitation (TR) are still very loud. Abdomen is soft, nontender. Peripheral edema is virtually diminished, but there is still some induration and her shins are bandaged. LABORATORY: CBC is revealing hemoglobin 12.2, hematocrit 40, platelet count 269,000. Basic metabolic panel: Potassium 3.5, BUN 42, creatinine 1.5, GFR 36 and glucose 211. ASSESSMENT AND PLAN: Mrs. Hernandez is an 86-year-old female who has presented with atrial fibrillation with rapid ventricular response (RVR) and associated exacerbated congestive heart failure. She has significant valvular disease with at least moderately severe MR and severe TR. Her central venous pressure and pulmonary artery pressure were high. Her heart rate is gradually improving in control with combination of metoprolol and amiodarone. She has been chronically anticoagulated. Her volume status is also improved. At this point, I believe she can be discharged home tomorrow. She wants me to follow her up on an outpatient basis, which I will arrange for. Even though she is quite old, I think we still consider potential cardioversion a few weeks down the road after she is fully loaded with amiodarone. ASSESSMENT/PLAN Mrs. Hernandez is a 86-year-old female who has presented with a. fib with RVR and associated exacerbated congestive heart failure. She has significant valvular disease with at least moderately severe MR and severe TR. Her central venous pressure and pulmonary artery pressure were high. She her heart rate is gradually improving in control with combination of metoprolol and amiodarone. She has been chronically anticoagulated. Her volume status is also improved at this point I believe she can be discharged home tomorrow. She wants be to followed in my office. Even though she is quite old I think we still consider potential cardioversion few weeks down the road after she is fully loaded with amiodarone. TD
[2017-03-18] MEDS: FOLIC ACID 1 MG TAB PO SCH (21:30)
[2017-03-18] MEDS: EZETIMIBE 10 MG TAB (ZETIA) PO SCH (21:30)
[2017-03-19] VITALS: BP 127/76
[2017-03-19] MEDS: METOPROLOL TART 50 MG TAB PO SCH ×2 (00:04→05:18)
[2017-03-19 04:00] VITALS: BP 128/77
[2017-03-19] MEDS: SLF 3 ML SYR IV SCH ×3 (06:00→21:03)
[2017-03-19 06:38] LABS: MEAN CORPUSCULAR HEMOGLOBIN 26.3 pg (27.0-33.0); MEAN CORPUSCULAR HGB CONC 31.2 g/dl (32.0-36.5); MEAN CORPUSCULAR VOLUME 84.3 fl (80.0-96.0); RED CELL DISTRIBUTION WIDTH 17.8 % (11.5-14.5); WHITE BLOOD COUNT 9.4 K/mm3 (4.0-10.0)
[2017-03-19 06:54] LABS: CALCIUM LEVEL 9.1 MG/DL (8.8-10.2); CREATININE FOR GFR 1.51 MG/DL (0.55-1.02); POTASSIUM SERUM 4.2 MEQ/L (3.5-5.1)
[2017-03-19 07:30] VITALS: BP 136/76
[2017-03-19] MEDS: HumaLOG INSULIN (NovoLOG) PER UNIT SC SCH ×4 (08:42→20:50)
[2017-03-19] MEDS: ERTAPENEM SODIUM 0.5 GM in NS 50 ML IV SCH (08:42)
[2017-03-19] MEDS: AMIODARONE 200 MG TAB (PACERONE) PO SCH ×2 (08:43→21:02)
[2017-03-19] MEDS: MAGNESIUM GLUCONATE 500 MG TAB PO SCH ×2 (08:43→21:03)
[2017-03-19] MEDS: APIXABAN 2.5 MG TAB (ELIQUIS) PO SCH ×2 (08:43→21:02)
[2017-03-19] MEDS: SPIRONOLACTONE 25 MG TAB PO SCH (08:43)
[2017-03-19] MEDS: FERROUS SULFATE 325MG TAB PO SCH (08:43)
[2017-03-19] MEDS: FUROSEMIDE 40 MG/4 ML VIAL (J1940) IV SCH ×2 (08:44→17:35)
[2017-03-19] MEDS: EUCERIN 120GM CREAM TOP SCH ×2 (09:00→21:03)
[2017-03-19] MEDS ORDERED: DIAPER RELIEF PASTE (DESITIN) 60GM TOP SCH (09:00)
[2017-03-19] MEDS: ACETAMINOPH W/CODEINE #3 TAB UD PO PRN ×2 (10:23→21:03)
--- NOTE | 2017-03-19 11:21 | IPN ---
DATE: 03/19/2017 Mrs. Hernandez had a good night. She has no complaints today. Heart rate has decreased. Heart rate yesterday was in 80's to 100's. Denies chest pain. Her dyspnea is much better. VITAL SIGNS: She is afebrile. Blood pressure 128/70. Heart rate as above. Saturation 96% on room air. Fluid balance yesterday was documented approximately 600 positive, but the documented urine output was not accurate (incontinence). Weight is down another almost kg. Overall, she lost over 6 kg of weight during this admission. CVP is about 2 or 3 cm above left clavicle. Lungs are clear on the left. On the right, she still has diminished breath sounds under her base. Heart Exam: Irregular rhythm. There is a relatively high pitched murmur at the precordial area, best heard over the apex. There is also a murmur at the left sternal border that is a little bit less high pitched quality, likely representing mitral tricuspid regurgitation (TR). ABDOMEN: Soft, nontender. Peripheral edema has essentially resolved. She still has bandages over her shins. Neurologically, she is intact. Laboratory-still, CBC reveals hemoglobin 12.5, hematocrit 40 and platelet count 21,000. Basic metabolic panel with potassium of 4.3, BUN 46, creatinine 1.5, and glucose 184. ASSESSMENT AND PLAN: Mrs. Hernandez is an 86-year-old female who has presented with atrial fibrillation with rapid ventricular response (RVR) and acute on chronic diastolic congestive heart failure as a consequence of her stopping her medications. I am not quite sure how it came to it as she seems to be rather oriented, but I suspect that there must have been some form of misunderstanding. Once they restarted her chronic medications, she seems to be much better controlled. Ultimately, her prognosis is poor on account of advanced age, but most importantly the valvular disease which is probably basically not correctable. My inclination will be to follow her on an outpatient basis as she specifically asked me to do so. From my perspective, she can be discharged home today. TD
[2017-03-19 12:00] VITALS: BP 123/60
--- NOTE | 2017-03-19 15:37 | IPNPDOC ---
Text Note Date of Service Late note. The patient was seen on 03/18/17. NOTE Subjective: Patient feels much improved. Denies any chest pain/shortness of breath. Objective: Vitals: (see below) General: No acute distress, laying comfortably in bed. HEENT: Moist mucous membranes. Neck: No JVD or lymphadenopathy Cardiac: RRR, No murmurs Pulm: Coarse crackles at the bases bilaterally b/l. No wheezing, rhonchi Abd: NT/ND + BS Ext: Trace edema bilateral lower extremity. No cyanosis. Chronic lower extremity skin changes with bandage is intact. Labs (see below) Images: Assessment/Plan 1. Atrial Fibrillation with RVR 2/2 noncompliance. Heart rate is better controlled at this point. Echocardiogram with severe tricuspid regurg, moderate to severe pulmonary hypertension. Restarted on metoprolol, Eliquis and amiodarone. Cardiology on board. 2. Decompensated diastolic heart failure- likely secondary to rapid atrial fibrillation secondary to noncompliance with her medications. She has a negative balance at this point. We'll continue with her current dose of diuretics. 3. Hypertension- controlled continue home meds. 4. CK D stage III- creatinine 1.2 baseline. Continue to monitor. 5. Chronic anemia- stable no need for transfusion at this time. 6. ESBL UTI- Abx changed to ertapenem. Improving. 7. Newly diagnosed diabetic- A1c 9.0. On sliding scale insulin. Will need close outpatient follow-up. 8. Hyperlipidemia- continue home meds 9. Chronic venous stasis ulcers- follows with Dr. Gamez. Continue wound care. 10. NSVT - K replaced. On BB. Asymptomatic. Will continue to monitor. DVT prophy: On Eliquis. Dispo: Pending 24hr care. VS,Fishbone, I+O VS, Fishbone, I+O Laboratory Tests 03/19/17 06:21 Red Blood Count 4.75, Mean Corpuscular Volume 84.3, Mean Corpuscular Hemoglobin 26.3 L, Mean Corpuscular Hemoglobin Concent 31.2 L, Red Cell Distribution Width 17.8 H, Calcium Level 9.1 Vital Signs Date Time Temp Pulse Resp B/P (MAP) Pulse Ox O2 Delivery O2 Flow Rate FiO2 03/19/17 12:00 98.0 96 20 123/60 (81) 95 Room Air 03/16/17 04:00 0.0 I&O- Last 24 Hours up to 6 AM 03/20/17 05:59 Intake Total 420 ml Balance 420 ml VERENICE LEON MD Mar 19, 2017 15:37
--- NOTE | 2017-03-19 15:38 | IPNPDOC ---
Text Note Date of Service The patient was seen on 03/19/17. NOTE Subjective: Patient feels much improved. Denies any chest pain/shortness of breath. Objective: Vitals: (see below) General: No acute distress, laying comfortably in bed. HEENT: Moist mucous membranes. Neck: No JVD or lymphadenopathy Cardiac: RRR, No murmurs Pulm: Coarse crackles at the bases bilaterally b/l. No wheezing, rhonchi Abd: NT/ND + BS Ext: Trace edema bilateral lower extremity. No cyanosis. Chronic lower extremity skin changes with bandage is intact. Labs (see below) Images: Echo 10/2016 CONCLUSION: 1. Study is of good technical quality. 2. Normal LV size with mild LV systolic dysfunction. 3. Prominent aortic sclerosis with trivial insufficiency and trivial stenosis. 4. Degenerative abnormalities of mitral valve with at least moderate to severe mitral insufficiency. 5. Probably severe tricuspid insufficiency. 6. Very high central venous pressure. 7. At least moderately severe pulmonary hypertension. 8. Severe biatrial enlargement. 9. Left pleural effusion. Assessment/Plan 1. Atrial Fibrillation with RVR 2/2 noncompliance. Heart rate is better controlled at this point. Echocardiogram with severe tricuspid regurg, moderate to severe pulmonary hypertension. Restarted on metoprolol, this has been increased to 100 mg twice a day. Continued on Eliquis and amiodarone. Cardiology on board. 2. Decompensated diastolic heart failure- likely secondary to rapid atrial fibrillation secondary to noncompliance with her medications. She has a negative balance at this point. We'll continue with her current dose of diuretics. 3. Hypertension- controlled continue home meds. 4. CK D stage III- creatinine 1.2 baseline. Continue to monitor. 5. Chronic anemia- stable no need for transfusion at this time. 6. ESBL UTI- on ertapenem. Improving. 7. Newly diagnosed diabetic- A1c 9.0. On sliding scale insulin. Will need close outpatient follow-up. 8. Hyperlipidemia- continue home meds 9. Chronic venous stasis ulcers- follows with Dr. Gamez. Continue wound care. 10. NSVT - WIll keep K>4, Mg >2. On BB. Asymptomatic. Will continue to monitor. DVT prophy: On Eliquis. Dispo: Discharge pending 24hr care/PT clearance. VS,Kasia, I+O VS, Fishbone, I+O Laboratory Tests 03/19/17 06:21 Red Blood Count 4.75, Mean Corpuscular Volume 84.3, Mean Corpuscular Hemoglobin 26.3 L, Mean Corpuscular Hemoglobin Concent 31.2 L, Red Cell Distribution Width 17.8 H, Calcium Level 9.1 Vital Signs Date Time Temp Pulse Resp B/P (MAP) Pulse Ox O2 Delivery O2 Flow Rate FiO2 03/19/17 12:00 98.0 96 20 123/60 (81) 95 Room Air 03/16/17 04:00 0.0 I&O- Last 24 Hours up to 6 AM 03/20/17 05:59 Intake Total 420 ml Balance 420 ml VERENICE LEON MD Mar 19, 2017 15:38
[2017-03-19 16:00] VITALS: BP 132/68
[2017-03-19 20:00] VITALS: BP 113/66
[2017-03-19] MEDS: EZETIMIBE 10 MG TAB (ZETIA) PO SCH (21:01)
[2017-03-19] MEDS: FOLIC ACID 1 MG TAB PO SCH (21:01)
[2017-03-19] MEDS: METOPROLOL TARTRATE 100 MG TAB PO SCH (21:02)
[2017-03-20] VITALS: BP 105/60
[2017-03-20 04:00] VITALS: BP 112/73
[2017-03-20] MEDS: SLF 3 ML SYR IV SCH (05:03)
[2017-03-20 06:07] LABS: CALCIUM LEVEL 9.5 MG/DL (8.8-10.2); CREATININE FOR GFR 1.57 MG/DL (0.55-1.02); GLOMERULAR FILTRATION RATE 33.4 (>32); POTASSIUM SERUM 4.5 MEQ/L (3.5-5.1)
[2017-03-20 06:09] LABS: MEAN CORPUSCULAR HEMOGLOBIN 26.4 pg (27.0-33.0); MEAN CORPUSCULAR HGB CONC 30.7 g/dl (32.0-36.5); MEAN CORPUSCULAR VOLUME 85.8 fl (80.0-96.0); RED CELL DISTRIBUTION WIDTH 17.7 % (11.5-14.5); WHITE BLOOD COUNT 9.2 K/mm3 (4.0-10.0)
[2017-03-20 07:45] VITALS: BP 125/82
[2017-03-20] MEDS: ERTAPENEM SODIUM 0.5 GM in NS 50 ML IV SCH (08:10)
[2017-03-20] MEDS: SLF 3 ML SYR IV PRN ×2 (08:19→09:36)
[2017-03-20] MEDS: HumaLOG INSULIN (NovoLOG) PER UNIT SC SCH ×2 (08:19→12:57)
[2017-03-20] MEDS: AMIODARONE 200 MG TAB (PACERONE) PO SCH (09:32)
[2017-03-20 09:33] VITALS: BP 125/82
[2017-03-20] MEDS: METOPROLOL TARTRATE 100 MG TAB PO SCH (09:33)
[2017-03-20] MEDS: FERROUS SULFATE 325MG TAB PO SCH (09:33)
[2017-03-20] MEDS: APIXABAN 2.5 MG TAB (ELIQUIS) PO SCH (09:33)
[2017-03-20] MEDS: SPIRONOLACTONE 25 MG TAB PO SCH (09:33)
[2017-03-20] MEDS: MAGNESIUM GLUCONATE 500 MG TAB PO SCH (09:34)
[2017-03-20] MEDS: FUROSEMIDE 40 MG/4 ML VIAL (J1940) IV SCH (09:35)
[2017-03-20] MEDS: EUCERIN 120GM CREAM TOP SCH (09:38)
[2017-03-20] MEDS ORDERED: LOPR1TAB7 PO (11:19)
[2017-03-20] MEDS ORDERED: BACT800T5 PO (11:19)
[2017-03-20] MEDS ORDERED: ELIQ2.5T PO (11:19)
[2017-03-20] MEDS ORDERED: AMIO200T PO (11:19)
[2017-03-20] MEDS ORDERED: SPIR25TA2 PO (11:19)
[2017-03-20 12:00] VITALS: BP 136/79
[2017-03-20] MEDS ORDERED: EUCECRE3 TOP (12:10)
[2017-03-20] MEDS ORDERED: D-CA1KIT XX (13:51)
[2017-03-20] MEDS ORDERED: ADVOMIS4 XX (13:51)
[2017-03-20] MEDS ORDERED: GLIM2TAB PO (13:51)
--- NOTE | 2017-03-20 15:25 | DS.PDOC ---
Discharge Summary General Date of Admission Mar 13, 2017 at 05:47 Date of Discharge 03/20/17 Attending Physician: VERENICE LEON MD Specialist/Consultants Involve: Alphonse Saravia MD Discharge Summary PROCEDURES PERFORMED DURING STAY: None. ADMITTING/DISCHARGE DIAGNOSES: 1. Atrial fibrillation with Rapid ventricular response 2. Decompensated diastolic heart failure 3. Hypertension 4. Chronic kidney disease 5. Newly diagnosed diabetes mellitus 6. Chronic anemia 7. Urinary tract infection- ESBL 8. Chronic venous stasis ulcers 9. Nonsustained ventricular tachycardia COMPLICATIONS/CHIEF COMPLAINT: Shortness of breath HISTORY OF PRESENT ILLNESS/HOSPITAL COURSE: This is a 86-year-old female past medical history of atrial fibrillation, diastolic heart failure, hypertension, chronic kidney disease or presents complaining of shortness of breath and palpitations. Patient was noted to be in atrial fibrillation with rapid ventricular response as well as decompensated diastolic heart failure after stopping her medications. Patient states that she was feeling very well and did not feel as if she needed her medications which is why she stopped them. Since admission, her atrial fibrillation has been well controlled, and her home medications were restarted. Her metoprolol was optimized and the patient had her amiodarone increased as well. The Eliquis was restarted. Patient was also noted to have diabetes mellitus which is a new diagnosis for her. She was started on glimepiride on discharge as well as having a glucometer lancets and test strips sent to her pharmacy. Nursing stated that home health will help assist her with monitoring her blood sugars. She is now hemodynamically stable and ready to be discharged home with follow- up with Dr. Saravia. DISCHARGE MEDICATIONS: Please see below. ALLERGIES: Please see below. PHYSICAL EXAMINATION ON DISCHARGE: Vitals: (see below) General: No acute distress, laying comfortably in bed. HEENT: Moist mucous membranes. Neck: No JVD or lymphadenopathy Cardiac: RRR, No murmurs Pulm: Coarse crackles at the bases bilaterally b/l. No wheezing, rhonchi Abd: NT/ND + BS Ext: Trace edema bilateral lower extremity. No cyanosis. Chronic lower extremity skin changes with bandage is intact. LABORATORY DATA: Please see below. IMAGING: Echo 10/2016 CONCLUSION: 1. Study is of good technical quality. 2. Normal LV size with mild LV systolic dysfunction. 3. Prominent aortic sclerosis with trivial insufficiency and trivial stenosis. 4. Degenerative abnormalities of mitral valve with at least moderate to severe mitral insufficiency. 5. Probably severe tricuspid insufficiency. 6. Very high central venous pressure. 7. At least moderately severe pulmonary hypertension. 8. Severe biatrial enlargement. 9. Left pleural effusion. PROGNOSIS: Guarded ACTIVITY: As tolerated. DIET: Low-sodium diet, 1800 mL fluid instruction. DISCHARGE PLAN/DISPOSITION: Home with services DISCHARGE INSTRUCTIONS: 1. I'll up with PCP and cardiology in 1-2 weeks. Follow up with Dr. Gamez in 1-2 weeks as well. Return to ED if symptoms worsen. DISCHARGE CONDITION: Stable. TIME SPENT ON DISCHARGE: Greater than 30 minutes. Vital Signs/I&Os Vital Signs Date Time Temp Pulse Resp B/P (MAP) Pulse Ox O2 Delivery O2 Flow Rate FiO2 03/20/17 12:00 97.2 90 22 136/79 (98) 100 Room Air 03/16/17 04:00 0.0 I&O- Last 24 Hours up to 6 AM 03/21/17 06:00 Intake Total 330 ml Balance 330 ml Laboratory Data Labs 24H Laboratory Tests 2 03/19/17 17:28: Bedside Glucose (Misc Panel) 147H 03/19/17 20:45: Bedside Glucose (Misc Panel) 228H 03/20/17 05:26: Anion Gap 8, Glomerular Filtration Rate 33.4, Blood Urea Nitrogen 45H, Creatinine 1.57H, Sodium Level 142, Potassium Level 4.5, Chloride Level 104, Carbon Dioxide Level 30, Calcium Level 9.5 03/20/17 12:10: Bedside Glucose (Misc Panel) 232H CBC/BMP Laboratory Tests 03/20/17 05:26 Red Blood Count 4.64, Mean Corpuscular Volume 85.8, Mean Corpuscular Hemoglobin 26.4 L, Mean Corpuscular Hemoglobin Concent 30.7 L, Red Cell Distribution Width 17.7 H, Calcium Level 9.5 FSBS Laboratory Tests Test 03/19/17 17:28 03/19/17 20:45 03/20/17 12:10 Range/Units Bedside Glucose (Misc Panel) 147 228 232 83-110 MG/DL Microbiology Microbiology 03/13/17 Blood Culture - Final, Complete NO GROWTH AFTER 5 DAYS 03/13/17 Blood Culture - Final, Complete NO GROWTH AFTER 5 DAYS 03/16/17 Urine Culture - Final, Complete Klebsiella Pneumoniae Esbl Discharge Medications Scheduled Amiodarone HCl (Amiodarone HCl) 200 Mg Tab, 400 MG PO BID Apixaban Base (Eliquis) 2.5 Mg Tab, 2.5 MG PO BID Bumetanide (Bumetanide) 1 Mg Tab, 1 MG PO DAILY, (Reported) Eucerin (Eucerin) 1 Cre Cre, 1 DOSE TOP BID Ezetimibe (Zetia) 10 Mg Tab, 10 MG PO QHS, (Reported) Ferrous Sulfate (Ferrous Sulfate) 325 Mg Tab, 325 MG PO DAILY, (Reported) Folic Acid (Folic Acid) 1 Mg Tab, 1 MG PO QHS, (Reported) Glimepiride (Glimepiride) 2 Mg Tab, 1 MG PO DAILY Metoprolol Tartrate (Lopressor) 100 Mg Tab, 100 MG PO BID Spironolactone (Spironolactone) 25 Mg Tab, 25 MG PO QAM Trimethoprim/Sulfamethoxazole (Bactrim Ds 800-160 mg) 1 Tab Tab, 1 TAB PO DAILY Scheduled PRN Acetaminophen/Codeine (Tylenol/Codeine #3) Tab, 2 TAB PO TID PRN for PAIN, ( Reported) Allergies Coded Allergies: No Known Allergies (Unverified , 03/16/17) VERENICE LEON MD Mar 20, 2017 15:25
== END 2017-03-20 15:45 | disposition home health service (06) | DRG 308 ==
LOC: M ED 03:29 → EDBD 03:29 → M ED INP 05:47 → EEVIPCON 05:47 → M PCU 18:27
PROVIDERS: ADMIT Internal Medicine; ATTEND Internal Medicine
DX: I48.91 Unspecified atrial fibrillation (principal); I50.31 Acute diastolic (congestive) heart failure; N39.0 Urinary tract infection, site not specified; I13.0 Hypertensive heart and chronic kidney disease with heart failure and stage 1 through stage 4 chronic kidney disease, or unspecified chronic kidney disease; E11.65 Type 2 diabetes mellitus with hyperglycemia; D64.9 Anemia, unspecified; Z79.899 Other long term (current) drug therapy; E78.00 Pure hypercholesterolemia, unspecified; Z66 Do not resuscitate; D72.829 Elevated white blood cell count, unspecified; I87.8 Other specified disorders of veins; I35.0 Nonrheumatic aortic (valve) stenosis; I34.0 Nonrheumatic mitral (valve) insufficiency; I47.2 Ventricular tachycardia; Z91.19 Patient's noncompliance with other medical treatment and regimen; I27.2 Other secondary pulmonary hypertension; E78.5 Hyperlipidemia, unspecified

== ENCOUNTER → 2017-04-04 | Outpatient (REF) | payer MEDICARE, OTHER ==
[~2017-04-04] MED LIST changes: +ADVOMIS4 XX; +D-CA1KIT XX; +EUCECRE3 TOP; +GLIM2TAB PO; +PATIENT COMMENT; +SPIR25TA2 PO
[2017-04-04 14:06] LABS: MEAN CORPUSCULAR HEMOGLOBIN 26.1 pg (27.0-33.0); MEAN CORPUSCULAR HGB CONC 29.9 g/dl (32.0-36.5); MEAN CORPUSCULAR VOLUME 87.4 fl (80.0-96.0); WHITE BLOOD COUNT 9.3 10^3/uL (4.0-10.0)
[2017-04-04 14:13] LABS: YEAST LIKE CELL URINE AUTO SMALL
[2017-04-04 15:02] LABS: ALBUMIN/GLOBULIN RATIO 0.81 (1.00-1.93); BILIRUBIN,TOTAL 0.3 MG/DL (0.2-1.0); CALCIUM LEVEL 8.6 MG/DL (8.8-10.2); CREATININE FOR GFR 1.5 MG/DL (0.55-1.02); FREE T4 1.33 NG/DL (0.76-1.46); GLOMERULAR FILTRATION RATE 35.2 (>32); TOTAL PROTEIN 6.7 GM/DL (6.4-8.2)
== END ==
LOC: M LAB REF 13:34
PROVIDERS: ATTEND Internal Medicine Cardiovascular Disease
DX: I13.0 Hypertensive heart and chronic kidney disease with heart failure and stage 1 through stage 4 chronic kidney disease, or unspecified chronic kidney disease (principal); N18.3 Chronic kidney disease, stage 3 (moderate); E78.00 Pure hypercholesterolemia, unspecified; I50.9 Heart failure, unspecified; D64.9 Anemia, unspecified; E11.9 Type 2 diabetes mellitus without complications

== ENCOUNTER → 2018-01-08 | Outpatient (REF) | payer MEDICARE, OTHER | LOC: M LAB REF 15:40 | DX: L03.116 Cellulitis of left lower limb (principal) | CPT/HCPCS: 87186 ==

== ENCOUNTER → 2018-01-21 | Outpatient (REF) | payer MEDICARE, OTHER | LOC: M LAB REF 15:23 | DX: A49.02 Methicillin resistant Staphylococcus aureus infection, unspecified site (principal) | CPT/HCPCS: 87186 ==

== ENCOUNTER → 2018-04-01 | Outpatient (REF) | payer MEDICARE, OTHER | LOC: M LAB REF 09:48 | DX: N39.0 Urinary tract infection, site not specified (principal) | CPT/HCPCS: 87086 ==

== ENCOUNTER 2018-05-11 16:14 | Inpatient (IN) | payer MEDICARE, OTHER ==
[2018-05-11 17:37] LABS: BASO % 0.3 % (0.0-1.0); EOS # 0.8 10^3/uL (0.0-0.50); EOS % 6.1 % (0.0-3.0); HEMATOCRIT 29.9 % (36.0-47.0); HEMOGLOBIN 9.1 g/dl (12.0-15.5); LYMPH # 0.6 10^3/uL (1.5-4.5); LYMPH % 4.8 % (24.0-44.0); MEAN CORPUSCULAR HEMOGLOBIN 24.9 pg (27.0-33.0); MEAN CORPUSCULAR HGB CONC 30.4 g/dl (32.0-36.5); MEAN CORPUSCULAR VOLUME 81.9 fl (80.0-96.0); MONO % 7.4 % (0.0-5.0); NEUTROPHILS # 10.5 10^3/uL (1.8-7.7); NEUTROPHILS % 80.4 % (36.0-66.0); PLATELET COUNT, AUTOMATED 297 10^3/uL (150-450); RED BLOOD COUNT 3.65 10^6/uL (4.00-5.40); RED CELL DISTRIBUTION WIDTH 18.6 % (11.5-14.5)
[2018-05-11] MEDS ORDERED: DEXTROSE 25% (2.5G/10ML) 10 ML SYRINGE (PEDIATRIC) As Ordered (18:03)
[2018-05-11] MEDS ORDERED: DEXTROSE 50% 50 ML VIAL As Ordered (18:03)
[2018-05-11 18:07] LABS: BEDSIDE GLUCOSE 19 MG/DL (83-110)
[2018-05-11 18:09] LABS: ALBUMIN 2.5 GM/DL (3.2-5.2); ALBUMIN/GLOBULIN RATIO 0.69 (1.00-1.93); ALKALINE PHOSPHATASE 64 U/L (45-117); ALT/SGPT 11 U/L (12-78); ANION GAP 9 MEQ/L (8-16); AST/SGOT 15 U/L (7-37); BILIRUBIN,DIRECT < 0.1 MG/DL (0.0-0.2); BILIRUBIN,TOTAL 0.2 MG/DL (0.2-1.0); BLOOD UREA NITROGEN 28 MG/DL (7-18); CALCIUM LEVEL 8.8 MG/DL (8.8-10.2); CARBON DIOXIDE LEVEL 29 MEQ/L (21-32); CHLORIDE LEVEL 102 MEQ/L (98-107); CREATININE FOR GFR 1.56 MG/DL (0.55-1.30); GLOMERULAR FILTRATION RATE 33.6 (>32); GLUCOSE, FASTING 25 MG/DL (70-100); NT-PRO BNP 5049 PG/ML (<450); POTASSIUM SERUM 3.3 MEQ/L (3.5-5.1); SODIUM LEVEL 140 MEQ/L (136-145); TOTAL PROTEIN 6.1 GM/DL (6.4-8.2)
[2018-05-11 18:12] LABS: BEDSIDE GLUCOSE 177 MG/DL (83-110)
[2018-05-11] MEDS: DEXTROSE 50% 50 ML SYRINGE IV ×2 (18:14→20:47)
[2018-05-11] MEDS: POTASSIUM CHLORIDE 10 MEQ SR TABLET PO (18:22)
[2018-05-11] MEDS ORDERED: PILL CRUSHER/CUTTER 1 EACH XX (18:26)
[2018-05-11 19:28] LABS: BEDSIDE GLUCOSE 71 MG/DL (83-110)
[2018-05-11] MEDS ORDERED: POTASSIUM CHLORIDE 10 MEQ SR TABLET PO (19:45)
[2018-05-11 20:04] LABS: BEDSIDE GLUCOSE 77 MG/DL (83-110)
[2018-05-11 20:26] LABS: D-DIMER QUANT 1222.4 ng/ml (<500)
[2018-05-11 20:46] LABS: BEDSIDE GLUCOSE 48 MG/DL (83-110)
[2018-05-11] MEDS: D10W 1,000 ML IV (20:57)
[2018-05-11] MEDS: FOLIC ACID 1 MG TAB PO (21:00)
[2018-05-11] MEDS: EZETIMIBE 10 MG TAB (ZETIA) PO (21:00)
[2018-05-11 21:18] LABS: BEDSIDE GLUCOSE 123 MG/DL (83-110)
[2018-05-11 22:18] LABS: BEDSIDE GLUCOSE 81 MG/DL (83-110)
[2018-05-11 23:01] LABS: BEDSIDE GLUCOSE 69 MG/DL (83-110)
[2018-05-11] MEDS ORDERED: ISOVUE-370 76% 100ML VIAL (Q9967) As Ordered (23:05)
[2018-05-12] MEDS: ENOXAPARIN 60 MG/0.6 ML SYR (J1650) SC
[2018-05-12] MEDS: ACETAMINOPH W/CODEINE #3 TAB UD PO (00:15)
[2018-05-12] MEDS ORDERED: EUCERIN 120GM CREAM TOP (00:30)
[2018-05-12] MEDS ORDERED: MORPHINE 4 MG/ML 1ML VIAL/SYRINGE (J2270) IV (00:30)
[2018-05-12] MEDS ORDERED: BISACODYL 10 MG SUPP PR (00:30)
[2018-05-12] MEDS ORDERED: ACETAMINOPHEN TAB 650MG DOSE (2X325MG) PO (00:30)
[2018-05-12 00:37] LABS: BEDSIDE GLUCOSE 38 MG/DL (83-110)
[2018-05-12 00:46] LABS: BEDSIDE GLUCOSE 34 MG/DL (83-110)
[2018-05-12] MEDS: DEXTROSE 50% 50 ML SYRINGE IV ×3 (00:55→07:28)
[2018-05-12 01:21] LABS: BEDSIDE GLUCOSE 138 MG/DL (83-110)
[2018-05-12 01:26] LABS: ANION GAP 5 MEQ/L (8-16); BLOOD UREA NITROGEN 30 MG/DL (7-18); CALCIUM LEVEL 8.3 MG/DL (8.8-10.2); CARBON DIOXIDE LEVEL 31 MEQ/L (21-32); CHLORIDE LEVEL 104 MEQ/L (98-107); CREATININE FOR GFR 1.49 MG/DL (0.55-1.30); GLOMERULAR FILTRATION RATE 35.4 (>32); GLUCOSE, FASTING 34 MG/DL (70-100); POTASSIUM SERUM 4.3 MEQ/L (3.5-5.1); SODIUM LEVEL 140 MEQ/L (136-145)
[2018-05-12] MEDS ORDERED: GLUCOSE 4 GM CHEW TABLET PO (01:45)
[2018-05-12] MEDS ORDERED: GLUCAGON FOR INJ 1 MG VIAL (J1610) SC (01:45)
[2018-05-12] MEDS: FUROSEMIDE 40 MG/4 ML VIAL (J1940) IV ×2 (02:00→08:30)
[2018-05-12 02:29] LABS: BEDSIDE GLUCOSE 124 MG/DL (83-110)
[2018-05-12 02:51] LABS: MAGNESIUM LEVEL 1.5 MG/DL (1.8-2.4)
[2018-05-12 03:25] LABS: BEDSIDE GLUCOSE 113 MG/DL (83-110)
[2018-05-12] MEDS: MORPHINE 2 MG/ML 1ML SYRINGE (J2270) IV (03:38)
[2018-05-12 04:59] LABS: BEDSIDE GLUCOSE 64 MG/DL (83-110)
[2018-05-12 05:14] LABS: HEMATOCRIT 31.3 % (36.0-47.0); HEMOGLOBIN 9.3 g/dl (12.0-15.5); MEAN CORPUSCULAR HEMOGLOBIN 24.4 pg (27.0-33.0); MEAN CORPUSCULAR HGB CONC 29.7 g/dl (32.0-36.5); MEAN CORPUSCULAR VOLUME 82.2 fl (80.0-96.0); PLATELET COUNT, AUTOMATED 261 10^3/uL (150-450); RED BLOOD COUNT 3.81 10^6/uL (4.00-5.40); WHITE BLOOD COUNT 14.1 10^3/uL (4.0-10.0)
[2018-05-12 05:24] LABS: INR 1.11; PROTHROMBIN TIME 14.5 SECONDS (12.1-14.4)
[2018-05-12 05:25] LABS: PARTIAL THROMBOPLASTIN TIME 40.3 SECONDS (25.4-37.6)
[2018-05-12 05:28] LABS: ANION GAP 10 MEQ/L (8-16); BLOOD UREA NITROGEN 27 MG/DL (7-18); CALCIUM LEVEL 8.8 MG/DL (8.8-10.2); CARBON DIOXIDE LEVEL 26 MEQ/L (21-32); CHLORIDE LEVEL 102 MEQ/L (98-107); CREATININE FOR GFR 1.47 MG/DL (0.55-1.30); GLUCOSE, FASTING 40 MG/DL (70-100); MAGNESIUM LEVEL 1.7 MG/DL (1.8-2.4); POTASSIUM SERUM 3.6 MEQ/L (3.5-5.1); SODIUM LEVEL 138 MEQ/L (136-145)
[2018-05-12] MEDS: PERCOCET 5MG/325MG TAB PO ×3 (05:30→19:50)
[2018-05-12 05:42] LABS: BEDSIDE GLUCOSE 38 MG/DL (83-110)
[2018-05-12 06:23] LABS: BEDSIDE GLUCOSE 71 MG/DL (83-110)
[2018-05-12] MEDS ORDERED: FLUBLOK(EGG FREE)(QUAD)INFLUENZA VACC 0.5ML SYRINGE (90682)18YRS&OLDER IM (07:00)
[2018-05-12 07:22] LABS: BEDSIDE GLUCOSE 42 MG/DL (83-110)
[2018-05-12 08:03] LABS: BEDSIDE GLUCOSE 100 MG/DL (83-110)
[2018-05-12] MEDS: SENOKOT S TAB PO ×2 (08:28→20:23)
[2018-05-12] MEDS: SPIRONOLACTONE 25 MG TAB PO (08:29)
[2018-05-12] MEDS: MAGNESIUM OXIDE 400 MG TAB (MAG-OX) PO (08:29)
[2018-05-12] MEDS: FERROUS SULFATE 325MG TAB PO (08:29)
[2018-05-12] MEDS: METOPROLOL TARTRATE 100 MG TAB PO ×2 (08:29→20:24)
[2018-05-12 09:14] LABS: BEDSIDE GLUCOSE 111 MG/DL (83-110)
[2018-05-12 11:02] LABS: BEDSIDE GLUCOSE 64 MG/DL (83-110)
[2018-05-12 11:03] LABS: BEDSIDE GLUCOSE 88 MG/DL (83-110)
[2018-05-12 12:23] LABS: BEDSIDE GLUCOSE 65 MG/DL (83-110)
[2018-05-12 13:14] LABS: BEDSIDE GLUCOSE 61 MG/DL (83-110)
[2018-05-12 13:58] LABS: BEDSIDE GLUCOSE 95 MG/DL (83-110)
[2018-05-12 15:09] LABS: BEDSIDE GLUCOSE 90 MG/DL (83-110)
[2018-05-12 16:58] LABS: BEDSIDE GLUCOSE 100 MG/DL (83-110)
[2018-05-12 17:07] LABS: BEDSIDE GLUCOSE 106 MG/DL (83-110)
[2018-05-12 18:13] LABS: BEDSIDE GLUCOSE 106 MG/DL (83-110)
[2018-05-12] MEDS: FOLIC ACID 1 MG TAB PO (20:23)
[2018-05-12] MEDS: EZETIMIBE 10 MG TAB (ZETIA) PO (20:23)
[2018-05-12 21:58] LABS: BEDSIDE GLUCOSE 107 MG/DL (83-110)
[2018-05-13 00:43] LABS: BEDSIDE GLUCOSE 136 MG/DL (83-110)
[2018-05-13 04:22] LABS: BEDSIDE GLUCOSE 109 MG/DL (83-110)
[2018-05-13 04:56] LABS: HEMATOCRIT 28.4 % (36.0-47.0); HEMOGLOBIN 8.6 g/dl (12.0-15.5); MEAN CORPUSCULAR HEMOGLOBIN 24.3 pg (27.0-33.0); MEAN CORPUSCULAR HGB CONC 30.3 g/dl (32.0-36.5); MEAN CORPUSCULAR VOLUME 80.2 fl (80.0-96.0); PLATELET COUNT, AUTOMATED 221 10^3/uL (150-450); RED BLOOD COUNT 3.54 10^6/uL (4.00-5.40); RED CELL DISTRIBUTION WIDTH 18.7 % (11.5-14.5); WHITE BLOOD COUNT 10.8 10^3/uL (4.0-10.0)
[2018-05-13 05:06] LABS: INR 1.23; PROTHROMBIN TIME 15.7 SECONDS (12.1-14.4)
[2018-05-13 05:07] LABS: PARTIAL THROMBOPLASTIN TIME 43.3 SECONDS (25.4-37.6)
[2018-05-13 05:10] LABS: ANION GAP 7 MEQ/L (8-16); BLOOD UREA NITROGEN 31 MG/DL (7-18); CARBON DIOXIDE LEVEL 29 MEQ/L (21-32); CHLORIDE LEVEL 102 MEQ/L (98-107); CREATININE FOR GFR 1.38 MG/DL (0.55-1.30); GLOMERULAR FILTRATION RATE 38.7 (>32); GLUCOSE, FASTING 105 MG/DL (70-100); POTASSIUM SERUM 4.1 MEQ/L (3.5-5.1); SODIUM LEVEL 138 MEQ/L (136-145)
[2018-05-13] MEDS: PERCOCET 5MG/325MG TAB PO (07:33)
[2018-05-13 07:58] LABS: BEDSIDE GLUCOSE 100 MG/DL (83-110)
[2018-05-13] MEDS: SENOKOT S TAB PO (09:00)
[2018-05-13] MEDS: FUROSEMIDE 40 MG/4 ML VIAL (J1940) IV ×2 (09:13→09:32)
[2018-05-13] MEDS: METOPROLOL TARTRATE 100 MG TAB PO (09:14)
[2018-05-13] MEDS: SPIRONOLACTONE 25 MG TAB PO (09:14)
[2018-05-13] MEDS: FERROUS SULFATE 325MG TAB PO (09:14)
[2018-05-13 11:29] LABS: ESTIMATED AVERAGE GLUCOSE 114 MG/DL (60-110); HEMOGLOBIN A1c 5.6 %
== END 2018-05-13 12:48 | disposition home health service (06) | DRG 638 ==
LOC: M ED INP 05-12 00:19 → M PCU 05-13 08:22 → M ICU 05-12 04:39 → M ED 16:14
DX: E11.649 Type 2 diabetes mellitus with hypoglycemia without coma (principal); I50.32 Chronic diastolic (congestive) heart failure; E87.6 Hypokalemia; N18.3 Chronic kidney disease, stage 3 (moderate); I48.91 Unspecified atrial fibrillation; E78.5 Hyperlipidemia, unspecified; Z79.899 Other long term (current) drug therapy; Z66 Do not resuscitate; I87.8 Other specified disorders of veins; D72.829 Elevated white blood cell count, unspecified; D64.9 Anemia, unspecified

== ENCOUNTER 2018-09-09 10:19 | Inpatient (IN) | payer MEDICARE, OTHER ==
[~2018-09-09] VITALS: Ht 165.1 cm; Wt 49.5 kg
[~2018-09-09 10:19] MED LIST changes: -BENI1TAB PO; +BENI1TAB3 PO; -BUME1TA PO; +BUME1TAB3 PO; +FOLI1TAB11 PO; -FOLI1TAB4 PO; +GLIM1TAB PO; +LEVO500T3; +LEVO500T3 PO; +LOPR1TAB6 PO; -LOSA50TA20 PO; +LOSA50TA88 PO; +METO100T5 PO; +SPIR-10 PO; -SPIR25TA2 PO; -ZYLO300T4 PO; +ZYLO300T6 PO
[2018-09-09] MEDS ORDERED: ACET30TAB PO (12:00)
[2018-09-09] MEDS ORDERED: POTA1TAB23 PO (12:00)
[2018-09-09] MEDS ORDERED: ASPI1TAB PO (12:00)
[2018-09-09] MEDS ORDERED: MELO15TA28 PO (12:00)
[2018-09-09] MEDS ORDERED: PENI250T57 PO (12:00)
[2018-09-09] MEDS ORDERED: ZYLO300T6 PO (12:00)
[2018-09-09] MEDS ORDERED: CART180C3 PO (12:00)
[2018-09-09] MEDS ORDERED: COLC1TAB13 PO (12:00)
[2018-09-09] MEDS ORDERED: NORCO, ANEXSIA 5/325MG TABLET (HYDROcodone/ACETAMINOPHEN) PO ONE (13:00)
--- NOTE | 2018-09-09 13:01 | REP ---
AP PORTABLE CHEST: 09/09/2018. Comparison: 05/11/2018, 03/13/2017. Clinical history: Dyspnea and cough. Findings: Lung bases now show bibasilar linear atelectatic change. Superimposed patchy infiltrates would be difficult to exclude. No gross effusion. No dense consolidation with air bronchograms in the mid or upper lung zones. Heart size enlarged with left atrial and ventricular enlargement. The aorta calcified tortuous and unchanged. Airway intact. There is no gross pneumothorax or pneumomediastinum. Bones are demineralized. No free air under the diaphragm. Impression: 1. Bibasilar linear subsegmental atelectatic changes are new and greater left than right. No dense consolidation with air bronchograms but superimposed patchy infiltrates would be difficult to exclude. 2. Cardiomegaly with left atrial and ventricular enlargement but without vascular redistribution or karina edema. No gross effusion. The aorta is tortuous calcified and unchanged. Bones demineralized. Electronically Signed by Raúl Vanessa MD 09/09/2018 09:52 P
[2018-09-09 13:12] LABS: BASO # 0.1 10^3/uL (0.0-0.2); BASO % 0.5 % (0.0-1.0); EOS # 0.2 10^3/uL (0.0-0.50); EOS % 1.2 % (0.0-3.0); HEMATOCRIT 39.1 % (36.0-47.0); HEMOGLOBIN 11.6 g/dl (12.0-15.5); LYMPH # 0.8 10^3/uL (1.5-4.5); LYMPH % 4.2 % (24.0-44.0); MEAN CORPUSCULAR HEMOGLOBIN 23.6 pg (27.0-33.0); MEAN CORPUSCULAR HGB CONC 29.7 g/dl (32.0-36.5); MEAN CORPUSCULAR VOLUME 79.5 fl (80.0-96.0); MONO # 0.6 10^3/uL (0.0-0.8); MONO % 2.9 % (0.0-5.0); NEUTROPHILS # 17.5 10^3/uL (1.8-7.7); NEUTROPHILS % 90.7 % (36.0-66.0); PLATELET COUNT, AUTOMATED 441 10^3/uL (150-450); RED BLOOD COUNT 4.92 10^6/uL (4.00-5.40); WHITE BLOOD COUNT 19.3 10^3/uL (4.0-10.0)
--- NOTE | 2018-09-09 13:36 | REP ---
RIGHT HAND COMPLETE: 09/09/2018 CLINICAL HISTORY: Swelling, proximal 2nd and 3rd digits with some drainage. FINDINGS: Four views were provided with no prior studies. There is an IV in the dorsal aspect of the hand and wrist. There is prominent soft tissue swelling over the 2nd MCP joint but also at the PIP joint of the 3rd digit and to a lesser extent the other PIP joints of the 2nd, 4th and 5th digits. Swelling along the proximal phalanges of several digits, sparing relatively the 4th. I do not see a fracture or destructive lesion, avulsion or foreign body. No definite erosions. Narrowing of all of the MCP joints and more degenerative change at CMC joints and articulations between the scaphoid and the multangular bones. Bones demineralized without definite fractures of the carpal bones, metacarpals with the distal radius and ulna. Vascular calcifications in the radial artery noted. IMPRESSION: 1. Advanced osteoporosis and degenerative changes as described. There is prominent soft tissue swelling about the 2nd MCP joint but no underlying bony destruction, fracture, erosion, foreign body or other acute finding. Soft tissue swelling could be related to arthritis/bursitis, infection, trauma or other. No foreign body or erosive changes. Electronically Signed by Raúl Vanessa MD 09/09/2018 09:52 P
[2018-09-09 13:43] LABS: ALBUMIN 2.8 GM/DL (3.2-5.2); ALT/SGPT 9 U/L (12-78); BILIRUBIN,DIRECT < 0.1 MG/DL (0.0-0.2); BILIRUBIN,TOTAL 0.4 MG/DL (0.2-1.0); BLOOD UREA NITROGEN 65 MG/DL (7-18); C REACTIVE PROTEIN QUANTITATIV 5.47 MG/DL (0.00-0.30); CALCIUM LEVEL 9.5 MG/DL (8.8-10.2); CARBON DIOXIDE LEVEL 26 MEQ/L (21-32); CHLORIDE LEVEL 99 MEQ/L (98-107); CK-MB VALUE MASS < 1.0 NG/ML (<3.6); CPK CREATINE PHOSPHOKINASE 48 U/L (26-192); CREATININE FOR GFR 2.74 MG/DL (0.55-1.30); GLOMERULAR FILTRATION RATE 17.5 (>32); GLUCOSE, FASTING 153 MG/DL (70-100); MB/CK RELATIVE INDEX 2.08 (< OR =4); NT-PRO BNP 4911 PG/ML (<450); POTASSIUM SERUM 5.5 MEQ/L (3.5-5.1); SODIUM LEVEL 134 MEQ/L (136-145); THYROID STIMULATING HORMONE 0.661 uIU/ML (0.358-3.740); TOTAL PROTEIN 8.8 GM/DL (6.4-8.2); TROPONIN I < 0.02 NG/ML (< 0.10); URIC ACID 6.3 MG/DL (2.6-6.0)
[2018-09-09] MEDS ORDERED: AZITHROMYCIN INJ 500 MG, VIAL MATE ADAPTER 1 EACH in D5W 250 ML IV ONE (14:15)
[2018-09-09] MEDS ORDERED: cefTRIAXone SOD 1 GM in D5W MINI-BAG PLUS 50 ML IV ONE (14:15)
[2018-09-09] MEDS ORDERED: MELO7.5T7 PO (14:51)
[2018-09-09] MEDS ORDERED: PENI500T PO (14:51)
[2018-09-09] MEDS: NS 1,000 ML IV SCH (15:30)
[2018-09-09] MEDS ORDERED: EUCERIN 120GM CREAM TOP PRN (15:30)
[2018-09-09 16:39] LABS: HEMATOCRIT 38.2 % (36.0-47.0); HEMOGLOBIN 11.4 g/dl (12.0-15.5); MEAN CORPUSCULAR HEMOGLOBIN 23.7 pg (27.0-33.0); MEAN CORPUSCULAR HGB CONC 29.8 g/dl (32.0-36.5); MEAN CORPUSCULAR VOLUME 79.3 fl (80.0-96.0); PLATELET COUNT, AUTOMATED 421 10^3/uL (150-450); RED BLOOD COUNT 4.82 10^6/uL (4.00-5.40); WHITE BLOOD COUNT 17.4 10^3/uL (4.0-10.0)
--- NOTE | 2018-09-09 17:00 | HPE ---
DATE OF ADMISSION: 09/09/2018 88-year-old female with past medical history of diabetes, chronic kidney disease (CKD) III, chronic diastolic heart failure, atrial fibrillation, not on anticoagulation presents to the emergency room with generalized weakness and poor appetite. Her a month ago and since then she has not been eating well and she is also in the last week has had this cough with productive cummins sputum. No subjective feeling of fever, aches, chills. Was given Keflex by her primary medical doctor for possible pneumonia and it did not work. She came to the ER for evaluation. In the ER she had a chest x-ray which was suggestive of bilateral lower lobe pneumonia, was started on IV Rocephin and Zithromax. She will be admitted for further management. PAST MEDICAL HISTORY: Atrial fibrillation, on anticoagulation. History of diabetes. Chronic diastolic heart failure. Hyperlipidemia. CKD III. History of unrepaired hip fracture approximately 5 years ago which has made her bedridden. ALLERGIES: She has no known drug allergies. FAMILY HISTORY: Noncontributory. SOCIAL HISTORY: Patient denies tobacco, alcohol or illicit drugs. MEDICATIONS: She takes at home are as follows: - Tylenol #3 one tablet orally twice a day as needed - allopurinol 300 mg orally daily - aspirin 81 mg orally daily - bumetanide 1 mg orally twice daily - colchicine 0.6 mg orally daily as needed - Cardizem 180 mg orally daily - azintamide 10 mg orally at bedtime - folic acid 1 mg orally daily - meloxicam 7.5 mg orally twice daily - metoprolol 100 mg orally twice daily - potassium chloride 10 mEq orally twice daily - aldactone 25 mg orally daily REVIEW OF SYSTEMS: Negative all 10 major systems except what is mentioned in HPI. VITALS: Blood pressure 97/52, heart rate 79 and regular. Respiration rate 16, temperature is 97.3, oxygen saturation is 99% on room air. Head: Atraumatic. Normocephalic. Neck: Supple. No jugular venous distention (JVD). Lungs: Clear to auscultation. S1, S2 audible. No murmurs appreciated. Abdomen: Soft, positive bowel sounds. No pedal edema. Skin: Intact. Neurological examination: Patient awake, alert and oriented times three. LABS: WBC is 19.3, hemoglobin 11.8, hematocrit 39.1, platelets of 441,000. Sodium 134, potassium 5.5 hemolyzed, BUN 65, creatinine is 2.4. Glucose 153. Troponin is less than 0.02. TSH is 0.661. Urinalysis is pending. IMPRESSION AND PLAN: 1. Community acquired pneumonia. 2. Acute kidney injury (INDRA). PLAN: Patient will be admitted to PCU. Will continue the patient on IV Rocephin and Zithromax. Will attempt to get a sputum culture if possible. Her INDRA is likely prerenal in origin. Will continue IV hydration, normal saline at 100 mL an hour and monitor her BUN, creatinine and trends. Will continue all her other pre-admission medications except for her Bumex and aldactone which we will put on hold due to INDRA. Will continue following her care on PCU.
[2018-09-09 17:05] LABS: CALCIUM LEVEL 9.9 MG/DL (8.8-10.2); CREATININE FOR GFR 2.78 MG/DL (0.55-1.30); GLOMERULAR FILTRATION RATE 17.2 (>32); POTASSIUM SERUM 4.9 MEQ/L (3.5-5.1)
[2018-09-09] MEDS: FOLIC ACID 1 MG TAB PO SCH (21:00)
[2018-09-09] MEDS: POTASSIUM CHLORIDE 10 MEQ SR TABLET PO SCH (21:00)
[2018-09-09] MEDS: EZETIMIBE 10 MG TAB (ZETIA) PO SCH (21:00)
[2018-09-09] MEDS: METOPROLOL TARTRATE 100 MG TAB PO SCH (21:00)
[2018-09-10] MEDS: NS 1,000 ML IV SCH ×4 (00:25→23:36)
[2018-09-10 00:30] VITALS: BP 129/59
[2018-09-10 04:00] VITALS: BP 110/71
--- NOTE | 2018-09-10 07:36 | ECGEPIP ---
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
[2018-09-10 08:00] VITALS: BP 131/74
[2018-09-10] MEDS: cefTRIAXone SOD 1 GM in D5W MINI-BAG PLUS 50 ML IV SCH (09:58)
[2018-09-10] MEDS: ASPIRIN 81 MG ENTERIC TAB PO SCH (09:59)
[2018-09-10] MEDS: POTASSIUM CHLORIDE 10 MEQ SR TABLET PO SCH (09:59)
[2018-09-10] MEDS: diltiaZEM **CD** 180 MG CAP PO SCH (09:59)
[2018-09-10] MEDS: METOPROLOL TARTRATE 100 MG TAB PO SCH ×2 (09:59→21:00)
[2018-09-10] MEDS: AZITHROMYCIN INJ 500 MG, VIAL MATE ADAPTER 1 EACH in D5W 250 ML IV SCH (11:05)
[2018-09-10] MEDS: ACETAMINOPH W/CODEINE #3 TAB UD PO PRN (11:45)
[2018-09-10 12:00] VITALS: BP 109/59
[2018-09-10] MEDS: HEPARIN SOD (PORCINE) 5000 UNITS/ML VIAL SQ SCH ×2 (13:12→20:41)
[2018-09-10 13:51] LABS: FERRITIN 40 NG/ML (8-252); IRON (FE) 22 UG/DL (50-170); TOTAL IRON BINDING CAPACITY 219 UG/DL (250-450)
[2018-09-10 13:53] LABS: VITAMIN B12 LEVEL 454 PG/ML (247-911)
[2018-09-10 13:54] LABS: FOLATE > 24.0 NG/ML (>5.4)
[2018-09-10 14:00] VITALS: BP 94/58
[2018-09-10] MEDS: FOLIC ACID 1 MG TAB PO SCH (20:40)
[2018-09-10] MEDS: EZETIMIBE 10 MG TAB (ZETIA) PO SCH (20:41)
[2018-09-11 06:00] VITALS: BP 109/60
[2018-09-11 06:12] LABS: BASO # 0.1 10^3/uL (0.0-0.2); BASO % 0.6 % (0.0-1.0); EOS # 0.2 10^3/uL (0.0-0.50); HEMATOCRIT 35.8 % (36.0-47.0); HEMOGLOBIN 10.6 g/dl (12.0-15.5); LYMPH # 0.7 10^3/uL (1.5-4.5); LYMPH % 5.8 % (24.0-44.0); MEAN CORPUSCULAR HEMOGLOBIN 23.7 pg (27.0-33.0); MEAN CORPUSCULAR HGB CONC 29.6 g/dl (32.0-36.5); MEAN CORPUSCULAR VOLUME 80.1 fl (80.0-96.0); MONO # 0.6 10^3/uL (0.0-0.8); MONO % 4.9 % (0.0-5.0); NEUTROPHILS # 10.3 10^3/uL (1.8-7.7); NEUTROPHILS % 86.1 % (36.0-66.0); PLATELET COUNT, AUTOMATED 315 10^3/uL (150-450); RED BLOOD COUNT 4.47 10^6/uL (4.00-5.40)
[2018-09-11 06:44] LABS: CALCIUM LEVEL 8.9 MG/DL (8.8-10.2); CREATININE FOR GFR 1.57 MG/DL (0.55-1.30); GLOMERULAR FILTRATION RATE 33.3 (>32); POTASSIUM SERUM 3.9 MEQ/L (3.5-5.1)
[2018-09-11] MEDS: diltiaZEM **CD** 180 MG CAP PO SCH (09:17)
[2018-09-11] MEDS: ASPIRIN 81 MG ENTERIC TAB PO SCH (09:17)
[2018-09-11] MEDS: METOPROLOL TARTRATE 100 MG TAB PO SCH ×2 (09:18→21:47)
[2018-09-11] MEDS: cefTRIAXone SOD 1 GM in D5W MINI-BAG PLUS 50 ML IV SCH (09:20)
[2018-09-11] MEDS: HEPARIN SOD (PORCINE) 5000 UNITS/ML VIAL SQ SCH ×2 (09:21→21:46)
[2018-09-11] MEDS: AZITHROMYCIN INJ 500 MG, VIAL MATE ADAPTER 1 EACH in D5W 250 ML IV SCH (09:21)
[2018-09-11] MEDS: ACETAMINOPH W/CODEINE #3 TAB UD PO PRN (12:47)
[2018-09-11 14:00] VITALS: BP 112/58
[2018-09-11] MEDS: FOLIC ACID 1 MG TAB PO SCH (21:46)
[2018-09-11] MEDS: EZETIMIBE 10 MG TAB (ZETIA) PO SCH (21:46)
--- NOTE | 2018-09-11 21:56 | IPNPDOC ---
Text Note Date of Service The patient was seen on 09/10/18. NOTE Subjective : Feels weak and tired though was able to eat a little breakfast. No fever or chills, has cough. Physical exam; VITALS: As below Head: Atraumatic. Normocephalic, moist mucus membranes, temporal muscle wa Neck: Supple. No jugular venous distention (JVD). Lungs: Clear to auscultation. S1, S2 audible. No murmurs appreciated. Abdomen: Soft, positive bowel sounds. No pedal edema. Skin: Intact. Neurological examination: Patient awake, alert and oriented times three Labs and radiology :reviewed Assessment and plan: 88-year-old female with past medical history of diabetes, chronic kidney disease (CKD) III, chronic diastolic heart failure, atrial fibrillation, not on anticoagulation, hyperlipidemia, history of unrepaired hip fracture 5 years ago which has restricted her mobility and now is mostly bedridden presents to the emergency room with generalized weakness and poor appetite. Her a month ago and since then she has not been eating well and she is also in the last week has had this cough with productive cummins sputum. No subjective feeling of fever, aches, chills. Was given Keflex by her primary medical doctor for possible pneumonia and it did not work. She came to the ER for evaluation. In the ER she had a chest x-ray which was suggestive of bilateral lower lobe pneumonia, was started on IV Rocephin and Zithromax. She was admitted for further management. Pneumonia continue ceftriaxone and azithromycin Joann on ckd Says has not been drinking enough water will continue IVF. Diastolic chf hypovolemic to euvolemic hold diuretics. Atrial fibrillation rate controlled. On metoprolol and diltiazem not on anticoagulation. only on ASA. Hyperlipidemia continue Zetia. Protein calorie malnutrition. severe with BMI of 18, temporal muscle wasting Albumin 2.8 will initiate a calorie count. DVT prophylasix ordered. VS,Fishbone, I+O VS, Fishbone, I+O Vital Signs Date Time Temp Pulse Resp B/P (MAP) Pulse Ox O2 Delivery O2 Flow Rate FiO2 09/10/18 21:00 63 123/77 09/10/18 14:00 97.6 19 98 09/09/18 21:12 Room Air I&O- Last 24 Hours up to 6 AM 09/10/18 06:00 Intake Total 550 ml Output Total 0 ml Balance 550 ml KELVIN MCRAE MD Sep 10, 2018 23:44
[2018-09-11 22:00] VITALS: BP 109/56
--- NOTE | 2018-09-11 22:21 | IPNPDOC ---
Text Note Date of Service The patient was seen on 09/11/18. NOTE Subjective : Feels better this morning . Says that her appetite is a little b clare and she had some breakfast. has been bed bound for a year or more but was interested in working with PT while in the hospital to see if she can progress a little with her mobility. Physical exam; VITALS: As below Head: Atraumatic. Normocephalic, moist mucus membranes, temporal muscle wasting noted. Neck: Supple. No jugular venous distention (JVD). Lungs: Clear to auscultation. Heart: S1, S2 audible. No murmurs appreciated. Abdomen: Soft, positive bowel sounds. No pedal edema. Skin: Intact. Neurological examination: Patient awake, alert and oriented times three Labs and radiology :reviewed Assessment and plan: 88-year-old female with past medical history of diabetes, chronic kidney disease (CKD) III, chronic diastolic heart failure, atrial fibrillation, not on anticoagulation, hyperlipidemia, history of unrepaired hip fracture 5 years ago which has restricted her mobility and now is mostly bedridden presents to the emergency room with generalized weakness and poor appetite. Her a month ago and since then she has not been eating well and she is also in the last week has had this cough with productive cummins sputum. No subjective feeling of fever, aches, chills. Was given Keflex by her primary medical doctor for possible pneumonia and it did not work. She came to the ER for evaluation. In the ER she had a chest x-ray which was suggestive of bilateral lower lobe pneumonia, was started on IV Rocephin and Zithromax. She was admitted for further management. Pneumonia continue ceftriaxone and azithromycin Joann on ckd Says has not been drinking enough water will continue IVF. Diastolic chf hypovolemic to euvolemic hold diuretics. Atrial fibrillation rate controlled. On metoprolol and diltiazem not on anticoagulation. only on ASA. Hyperlipidemia continue Zetia. Under weight with severe Protein calorie malnutrition. severe with BMI of 18, temporal muscle wasting Albumin 2.8 Recent of her so probably she is having a normal grief reaction with loss of appetite. will initiate a calorie count. DVT prophylaxis ordered. VS,Fishbone, I+O VS, Fishbone, I+O Laboratory Tests 09/11/18 05:44 Red Blood Count 4.47, Mean Corpuscular Volume 80.1, Mean Corpuscular Hemoglobin 23.7 L, Mean Corpuscular Hemoglobin Concent 29.6 L, Red Cell Distribution Width 17.4 H, Neutrophils (%) (Auto) 86.1 H, Lymphocytes (%) (Auto) 5.8 L, Monocytes (%) (Auto) 4.9, Eosinophils (%) (Auto) 2.0, Basophils (%) (Auto) 0.6, Neutrophils # (Auto) 10.3 H, Lymphocytes # (Auto) 0.7 L, Monocytes # (Auto) 0.6, Eosinophils # (Auto) 0.2, Basophils # (Auto) 0.1, Calcium Level 8.9 Vital Signs Date Time Temp Pulse Resp B/P (MAP) Pulse Ox O2 Delivery O2 Flow Rate FiO2 09/11/18 21:47 78 109/56 09/11/18 14:00 97.0 16 97 09/09/18 21:12 Room Air I&O- Last 24 Hours up to 6 AM 09/11/18 06:00 Intake Total 420 ml Output Total 0 ml Balance 420 ml KELVIN MCRAE MD Sep 11, 2018 22:21
[2018-09-12 06:00] VITALS: BP 123/59
[2018-09-12 06:55] LABS: BASO % 0.4 % (0.0-1.0); EOS # 0.3 10^3/uL (0.0-0.50); EOS % 2.5 % (0.0-3.0); HEMATOCRIT 31.9 % (36.0-47.0); HEMOGLOBIN 9.3 g/dl (12.0-15.5); LYMPH # 0.7 10^3/uL (1.5-4.5); LYMPH % 6.7 % (24.0-44.0); MEAN CORPUSCULAR HEMOGLOBIN 23.2 pg (27.0-33.0); MEAN CORPUSCULAR HGB CONC 29.2 g/dl (32.0-36.5); MEAN CORPUSCULAR VOLUME 79.6 fl (80.0-96.0); MONO # 0.7 10^3/uL (0.0-0.8); MONO % 6.4 % (0.0-5.0); NEUTROPHILS # 8.4 10^3/uL (1.8-7.7); NEUTROPHILS % 83.3 % (36.0-66.0); PLATELET COUNT, AUTOMATED 308 10^3/uL (150-450); RED BLOOD COUNT 4.01 10^6/uL (4.00-5.40); WHITE BLOOD COUNT 10.1 10^3/uL (4.0-10.0)
[2018-09-12 07:14] LABS: CALCIUM LEVEL 8.6 MG/DL (8.8-10.2); CREATININE FOR GFR 1.14 MG/DL (0.55-1.30); GLOMERULAR FILTRATION RATE 48.1 (>32); POTASSIUM SERUM 3.6 MEQ/L (3.5-5.1)
[2018-09-12] MEDS: diltiaZEM **CD** 180 MG CAP PO SCH ×2 (09:00→10:05)
[2018-09-12] MEDS: cefTRIAXone SOD 1 GM in D5W MINI-BAG PLUS 50 ML IV SCH (10:04)
[2018-09-12] MEDS: ALLOPURINOL 300 MG TAB PO SCH (10:05)
[2018-09-12] MEDS: ASPIRIN 81 MG ENTERIC TAB PO SCH (10:05)
[2018-09-12] MEDS: METOPROLOL TARTRATE 100 MG TAB PO SCH ×2 (10:06→20:52)
[2018-09-12] MEDS: HEPARIN SOD (PORCINE) 5000 UNITS/ML VIAL SQ SCH ×2 (10:07→21:14)
[2018-09-12] MEDS: AZITHROMYCIN INJ 500 MG, VIAL MATE ADAPTER 1 EACH in D5W 250 ML IV SCH (10:51)
[2018-09-12 14:00] VITALS: BP 95/54
--- NOTE | 2018-09-12 15:32 | IPNPDOC ---
Text Note Date of Service The patient was seen on 09/12/18. NOTE Subjective : Feels better this morning . Her appetite is much improved. has been bed bound for a year or more but was interested in working with PT while in the hospital to see if she can progress a little with her mobility. Physical exam; VITALS: As below Head: Atraumatic. Normocephalic, moist mucus membranes, temporal muscle wasting noted. Neck: Supple. No jugular venous distention (JVD). Lungs: Clear to auscultation. Heart: S1, S2 audible. No murmurs appreciated. Abdomen: Soft, positive bowel sounds. No pedal edema. Skin: Intact. Neurological examination: Patient awake, alert and oriented times three Labs and radiology :reviewed Assessment and plan: 88-year-old female with past medical history of diabetes, chronic kidney disease (CKD) III, chronic diastolic heart failure, atrial fibrillation, not on anticoagulation, hyperlipidemia, history of unrepaired hip fracture 5 years ago which has restricted her mobility and now is mostly bedridden presents to the emergency room with generalized weakness and poor appetite. Her a month ago and since then she has not been eating well and she is also in the last week has had this cough with productive cummins sputum. No subjective feeling of fever, aches, chills. Was given Keflex by her primary medical doctor for possible pneumonia and it did not work. She came to the ER for evaluation. In the ER she had a chest x-ray which was suggestive of bilateral lower lobe pneumonia, was started on IV Rocephin and Zithromax. She was admitted for further management. Pneumonia continue ceftriaxone and azithromycin Joann on ckd prerenal resolved. Diastolic chf euvolemic hold diuretics. Atrial fibrillation rate controlled. On metoprolol and diltiazem not on anticoagulation. only on ASA. Hyperlipidemia continue Zetia. Under weight with severe Protein calorie malnutrition. severe with BMI of 18, temporal muscle wasting Albumin 2.8 Recent of her so probably she is having a normal grief reaction with loss of appetite. will initiate a calorie count. DVT prophylaxis ordered. VS,Fishbone, I+O VS, Fishbone, I+O Laboratory Tests 09/12/18 05:36 Red Blood Count 4.01, Mean Corpuscular Volume 79.6 L, Mean Corpuscular Hemoglobin 23.2 L, Mean Corpuscular Hemoglobin Concent 29.2 L, Red Cell Distribution Width 17.6 H, Neutrophils (%) (Auto) 83.3 H, Lymphocytes (%) (Auto) 6.7 L, Monocytes (%) (Auto) 6.4 H, Eosinophils (%) (Auto) 2.5, Basophils (%) (Auto) 0.4, Neutrophils # (Auto) 8.4 H, Lymphocytes # (Auto) 0.7 L, Monocytes # (Auto) 0.7, Eosinophils # (Auto) 0.3, Basophils # (Auto) 0.0, Calcium Level 8.6 L Vital Signs Date Time Temp Pulse Resp B/P (MAP) Pulse Ox O2 Delivery O2 Flow Rate FiO2 09/12/18 14:00 98.6 77 18 95/54 (68) 100 09/09/18 21:12 Room Air I&O- Last 24 Hours up to 6 AM 09/12/18 06:00 Intake Total 1260 ml Output Total 0 ml Balance 1260 ml KELVIN MCRAE MD Sep 12, 2018 15:32
[2018-09-12] MEDS: FOLIC ACID 1 MG TAB PO SCH (21:14)
[2018-09-12] MEDS: EZETIMIBE 10 MG TAB (ZETIA) PO SCH (21:14)
[2018-09-12 22:00] VITALS: BP 107/55
[2018-09-13 06:00] VITALS: BP 129/60
[2018-09-13 06:34] LABS: BASO % 0.5 % (0.0-1.0); EOS # 0.3 10^3/uL (0.0-0.50); HEMATOCRIT 34.1 % (36.0-47.0); HEMOGLOBIN 9.9 g/dl (12.0-15.5); LYMPH # 0.9 10^3/uL (1.5-4.5); LYMPH % 10.1 % (24.0-44.0); MEAN CORPUSCULAR HEMOGLOBIN 23.2 pg (27.0-33.0); MONO # 0.6 10^3/uL (0.0-0.8); MONO % 6.5 % (0.0-5.0); NEUTROPHILS # 6.9 10^3/uL (1.8-7.7); NEUTROPHILS % 79.2 % (36.0-66.0); PLATELET COUNT, AUTOMATED 266 10^3/uL (150-450); RED BLOOD COUNT 4.26 10^6/uL (4.00-5.40); WHITE BLOOD COUNT 8.7 10^3/uL (4.0-10.0)
[2018-09-13 07:00] LABS: BLOOD UREA NITROGEN 12 MG/DL (7-18); CALCIUM LEVEL 8.4 MG/DL (8.8-10.2); CARBON DIOXIDE LEVEL 23 MEQ/L (21-32); CHLORIDE LEVEL 111 MEQ/L (98-107); CREATININE FOR GFR 0.92 MG/DL (0.55-1.30); GLOMERULAR FILTRATION RATE > 60.0 (>32); GLUCOSE, FASTING 104 MG/DL (70-100); POTASSIUM SERUM 3.1 MEQ/L (3.5-5.1); SODIUM LEVEL 141 MEQ/L (136-145)
[2018-09-13] MEDS: diltiaZEM **CD** 180 MG CAP PO SCH ×2 (09:00→09:23)
[2018-09-13] MEDS ORDERED: POTASSIUM CHLORIDE 10 MEQ SR TABLET PO ONE (09:00)
[2018-09-13] MEDS: cefTRIAXone SOD 1 GM in D5W MINI-BAG PLUS 50 ML IV SCH (09:22)
[2018-09-13] MEDS: HEPARIN SOD (PORCINE) 5000 UNITS/ML VIAL SQ SCH ×2 (09:22→21:10)
[2018-09-13] MEDS: ALLOPURINOL 300 MG TAB PO SCH (09:23)
[2018-09-13] MEDS: METOPROLOL TARTRATE 100 MG TAB PO SCH ×2 (09:24→21:10)
[2018-09-13] MEDS: AZITHROMYCIN 250 MG TAB PO SCH (09:24)
[2018-09-13] MEDS: ASPIRIN 81 MG ENTERIC TAB PO SCH (09:24)
[2018-09-13 14:00] VITALS: BP 114/55
--- NOTE | 2018-09-13 15:43 | IPNPDOC ---
Text Note Date of Service The patient was seen on 09/13/18. NOTE Subjective : Having watery diarrhea for 3 to 4 times a day since starting the antibiotics. today finished day 5 of ceftriaxone so will stop. has one more dose of azithromycin to go. If diarrhea continues even after stopping ceftriaxone then will send GI panel. No fever or chills, no abdominal pain no elevated white count. She says her bottom is sore with all this diarrhea. Physical exam; VITALS: As below Head: Atraumatic. Normocephalic, moist mucus membranes, temporal muscle wasting noted. Neck: Supple. No jugular venous distention (JVD). Lungs: Clear to auscultation. Heart: S1, S2 audible. No murmurs appreciated. Abdomen: Soft, positive bowel sounds. No pedal edema. Skin: Intact. Neurological examination: Patient awake, alert and oriented times three Labs and radiology :reviewed Assessment and plan: 88-year-old female with past medical history of diabetes, c hronic kidney disease (CKD) III, chronic diastolic heart failure, atrial fibrillation, not on anticoagulation, hyperlipidemia, history of unrepaired hip fracture 5 years ago which has restricted her mobility and now is mostly bedridden presents to the emergency room with generalized weakness and poor appetite. Her a month ago and since then she has not been eating well and she is also in the last week has had this cough with productive cummins sputum. No subjective feeling of fever, aches, chills. Was given Keflex by her primary medical doctor for possible pneumonia and it did not work. She came to the ER for evaluation. In the ER she had a chest x-ray which was suggestive of bilateral lower lobe pneumonia, was started on IV Rocephin and Zithromax. She was admitted for further management. Pneumonia finished 5 days of ceftriaxone. will finish the azithromycin. Joann on ckd prerenal from poor oral intake on the back ground of diuretics. resolved. Diastolic chf euvolemic hold diuretics. Atrial fibrillation rate controlled. On metoprolol and diltiazem not on anticoagulation. only on ASA. Hyperlipidemia continue Zetia. Under weight with severe Protein calorie malnutrition. severe with BMI of 18, temporal muscle wasting Albumin 2.8 Recent of her so probably she is having a normal grief reaction with loss of appetite. will initiate a calorie count. DVT prophylaxis ordered. VS,Fishbone, I+O VS, Fishbone, I+O Laboratory Tests 09/13/18 05:59 Red Blood Count 4.26, Mean Corpuscular Volume 80.0, Mean Corpuscular Hemoglobin 23.2 L, Mean Corpuscular Hemoglobin Concent 29.0 L, Red Cell Distribution Width 17.5 H, Neutrophils (%) (Auto) 79.2 H, Lymphocytes (%) (Auto) 10.1 L, Monocytes (%) (Auto) 6.5 H, Eosinophils (%) (Auto) 3.0, Basophils (%) (Auto) 0.5, Neutrophils # (Auto) 6.9, Lymphocytes # (Auto) 0.9 L, Monocytes # (Auto) 0.6, Eosinophils # (Auto) 0.3, Basophils # (Auto) 0.0, Calcium Level 8.4 L Vital Signs Date Time Temp Pulse Resp B/P (MAP) Pulse Ox O2 Delivery O2 Flow Rate FiO2 09/13/18 14:00 99.0 103 20 114/55 (74) 97 09/09/18 21:12 Room Air I&O- Last 24 Hours up to 6 AM 09/13/18 06:00 Intake Total 910 ml Output Total 0 ml Balance 910 ml KELVIN MCRAE MD Sep 13, 2018 15:43
[2018-09-13] MEDS: FOLIC ACID 1 MG TAB PO SCH (21:10)
[2018-09-13] MEDS: EZETIMIBE 10 MG TAB (ZETIA) PO SCH (21:10)
[2018-09-13 22:00] VITALS: BP 110/64
[2018-09-14 06:00] VITALS: BP 114/63
[2018-09-14 06:01] LABS: BASO # 0.1 10^3/uL (0.0-0.2); BASO % 0.6 % (0.0-1.0); EOS # 0.3 10^3/uL (0.0-0.50); EOS % 3.2 % (0.0-3.0); HEMATOCRIT 32.5 % (36.0-47.0); HEMOGLOBIN 9.4 g/dl (12.0-15.5); LYMPH % 11.6 % (24.0-44.0); MEAN CORPUSCULAR HEMOGLOBIN 23.2 pg (27.0-33.0); MEAN CORPUSCULAR HGB CONC 28.9 g/dl (32.0-36.5); MEAN CORPUSCULAR VOLUME 80.2 fl (80.0-96.0); MONO # 0.6 10^3/uL (0.0-0.8); MONO % 6.9 % (0.0-5.0); NEUTROPHILS # 6.3 10^3/uL (1.8-7.7); PLATELET COUNT, AUTOMATED 249 10^3/uL (150-450); RED BLOOD COUNT 4.05 10^6/uL (4.00-5.40); WHITE BLOOD COUNT 8.2 10^3/uL (4.0-10.0)
[2018-09-14 06:27] LABS: CALCIUM LEVEL 8.6 MG/DL (8.8-10.2); CREATININE FOR GFR 0.97 MG/DL (0.55-1.30); POTASSIUM SERUM 3.5 MEQ/L (3.5-5.1)
[2018-09-14] MEDS: LACTOBACILLUS ACIDOPHILUS CAP (BACID) PO SCH ×2 (08:00→18:30)
[2018-09-14] MEDS: AZITHROMYCIN 250 MG TAB PO SCH (08:13)
[2018-09-14] MEDS: ASPIRIN 81 MG ENTERIC TAB PO SCH (08:14)
[2018-09-14] MEDS: METOPROLOL TARTRATE 100 MG TAB PO SCH ×2 (08:14→21:11)
[2018-09-14] MEDS: diltiaZEM **CD** 180 MG CAP PO SCH (08:14)
[2018-09-14] MEDS: ALLOPURINOL 300 MG TAB PO SCH (08:14)
[2018-09-14] MEDS: HEPARIN SOD (PORCINE) 5000 UNITS/ML VIAL SQ SCH ×2 (08:15→21:11)
[2018-09-14 14:00] VITALS: BP 107/55
--- NOTE | 2018-09-14 14:36 | IPNPDOC ---
Date Seen The patient was seen on 09/14/18. Progress Note SUBJECTIVE: Patient was seen and examined this morning. She currently has no complaints. She states that her appetite has improved. She is denying any nausea, vomiting, or diarrhea. She states that she had diarrhea yesterday but denies any further episodes. She denies any shortness of breath or chest pain. OBJECTIVE PHYSICAL EXAMINATION: VITAL SIGNS: Please see below. GENERAL: Patient is awake, alert, and oriented. She appears in no acute distress. She is sitting in bed comfortably eating her breakfast HEENT: Atraumatic normocephalic. Eyes are non-icteric. Trachea is midline CARDIOVASCULAR: Normal S1, S2. Regular rate and rhythm. No clicks, rubs, or murmurs appreciated RESPIRATORY: Clear vesicular lung sounds to auscultation bilaterally. No wheezes, rhonci, or rales ABDOMINAL: Soft, nondistended, nontender to palpation of all four quadrants. Positive bowel sounds throughout EXTREMITIES: No edema. Full and equal pulses bilaterally. NEUROLOGICAL: No focal neurological deficits PSYCHOLOGICAL: Mood and affect appear appropriate LABORATORY DATA, IMAGING STUDIES, MICROBIOLOGY: Please see below. DVT prophylaxis ordered?: ASSESSMENT AND PLAN: Patient is an 88 year old female with a past medical history signficant for diabetes, CKD stage III, Chronic diastolic heart failure, atrial fibrillation not on anticoagulation, hyperlipidemia, unrepaired hip fracture 5 years ago causing restricted mobility who originally presented to the ER with generalized weakness and poor appetite. Patients had recently and she has had poor PO intake since that point in time. She had also developed a cough with productive sputum. She had denied fevers, aches, chills. She presented to the ER with bilateral lower lobe pneumonia and was treated with IV rochephin and Zithromax. PROBLEMS: 1. Community Acquired Pneumonia -Patient has completed treatment with IV Rochephin and Azithromycin. -Patient developed diarrhea while taking antibiotics. He diarrhea seems to have resolved today. Will monitor for one more day 2. Acute on Chronic Kidney Disease -Patients INDRA was likely prerenal secondary to poor oral intake. This has resolved. Will continue to monitor 3. Diastolic CHF -Patient does not appear volume overloaded. -Patients home diuretics are currently on hold 4. Atrial fibrillation -Currently rate controlled on metoprolol and diltizaem -Patient is not on anticoagulation. She is only on Aspirin 5. Hyperlipidemia -Continue Zetia Disposition: Patient has been cleared by physical therapy. Likely discharge home within 24 hours. VS, I&O, 24H, [place]one Vital Signs/I&O Vital Signs Date Time Temp Pulse Resp B/P (MAP) Pulse Ox O2 Delivery O2 Flow Rate FiO2 09/14/18 08:14 69 112/71 09/14/18 06:00 97.7 21 97 09/09/18 21:12 Room Air I&O- Last 24 Hours up to 6 AM 09/14/18 06:00 Intake Total 470 ml Output Total 0 ml Balance 470 ml Laboratory Data 24H LABS Laboratory Tests 2 09/14/18 05:37: Immature Granulocyte % (Auto) 0.7, White Blood Count 8.2, Red Blood Count 4.05, Hemoglobin 9.4L, Hematocrit 32.5L, Mean Corpuscular Volume 80.2, Mean Corpuscular Hemoglobin 23.2L, Mean Corpuscular Hemoglobin Concent 28.9L, Red Cell Distribution Width 17.5H, Platelet Count 249, Neutrophils (%) (Auto) 77.0H, Lymphocytes (%) (Auto) 11.6L, Monocytes (%) (Auto) 6.9H, Eosinophils (%) (Auto) 3.2H, Basophils (%) (Auto) 0.6, Neutrophils # (Auto) 6.3, Lymphocytes # (Auto) 1 .0L, Monocytes # (Auto) 0.6, Eosinophils # (Auto) 0.3, Basophils # (Auto) 0.1, Nucleated Red Blood Cells % (auto) 0.0, Anion Gap 6L, Glomerular Filtration Rate 58.0, Blood Urea Nitrogen 10, Creatinine 0.97, Sodium Level 141, Potassium Level 3.5, Chloride Level 112H, Carbon Dioxide Level 23, Calcium Level 8.6L CBC/BMP Laboratory Tests 09/14/18 05:37 Red Blood Count 4.05, Mean Corpuscular Volume 80.2, Mean Corpuscular Hemoglobin 23.2 L, Mean Corpuscular Hemoglobin Concent 28.9 L, Red Cell Distribution Width 17.5 H, Neutrophils (%) (Auto) 77.0 H, Lymphocytes (%) (Auto) 11.6 L, Monocytes (%) (Auto) 6.9 H, Eosinophils (%) (Auto) 3.2 H, Basophils (%) (Auto) 0.6, Neutrophils # (Auto) 6.3, Lymphocytes # (Auto) 1.0 L, Monocytes # (Auto) 0.6, Eosinophils # (Auto) 0.3, Basophils # (Auto) 0.1, Calcium Level 8.6 L Microbiology Microbiology 09/09/18 Blood Culture - Preliminary, Resulted No Growth after 72 hours. All specime... 09/09/18 Blood Culture - Final, Complete NO GROWTH AFTER 5 DAYS 09/09/18 Gram Stain - Final, Complete 09/09/18 Wound Culture - Final, Complete Staphylococcus Sp Coag Neg GME ATTESTATION GME ATTESTATION My faculty preceptor for this patient encounter was physically present during the encounter and was fully available. All aspects of the patient interview, examination, medical decision making process, and medical care plan development were reviewed and approved by the faculty preceptor. The faculty preceptor is aware and concurs with the plan as stated in the body of this note and will attest to such by his/her cosignature. JESSICA COVINGTON DO Sep 14, 2018 14:36
[2018-09-14 21:11] VITALS: BP 127/60
[2018-09-14] MEDS: FOLIC ACID 1 MG TAB PO SCH (21:11)
[2018-09-14] MEDS: EZETIMIBE 10 MG TAB (ZETIA) PO SCH (21:11)
[2018-09-14 22:00] VITALS: BP 127/60
[2018-09-15 06:00] VITALS: BP 113/57
[2018-09-15 06:26] LABS: BASO # 0.1 10^3/uL (0.0-0.2); BASO % 0.6 % (0.0-1.0); EOS # 0.3 10^3/uL (0.0-0.50); EOS % 3.9 % (0.0-3.0); HEMATOCRIT 33.4 % (36.0-47.0); HEMOGLOBIN 9.7 g/dl (12.0-15.5); LYMPH # 0.9 10^3/uL (1.5-4.5); LYMPH % 11.2 % (24.0-44.0); MEAN CORPUSCULAR HEMOGLOBIN 23.1 pg (27.0-33.0); MEAN CORPUSCULAR VOLUME 79.5 fl (80.0-96.0); MONO # 0.5 10^3/uL (0.0-0.8); MONO % 6.6 % (0.0-5.0); NEUTROPHILS # 6.4 10^3/uL (1.8-7.7); NEUTROPHILS % 77.1 % (36.0-66.0); PLATELET COUNT, AUTOMATED 227 10^3/uL (150-450); WHITE BLOOD COUNT 8.2 10^3/uL (4.0-10.0)
[2018-09-15 06:43] LABS: BLOOD UREA NITROGEN 11 MG/DL (7-18); CALCIUM LEVEL 8.5 MG/DL (8.8-10.2); CARBON DIOXIDE LEVEL 24 MEQ/L (21-32); CHLORIDE LEVEL 110 MEQ/L (98-107); CREATININE FOR GFR 0.78 MG/DL (0.55-1.30); GLOMERULAR FILTRATION RATE > 60.0 (>32); GLUCOSE, FASTING 118 MG/DL (70-100); POTASSIUM SERUM 3.5 MEQ/L (3.5-5.1); SODIUM LEVEL 140 MEQ/L (136-145)
[2018-09-15] MEDS: ASPIRIN 81 MG ENTERIC TAB PO SCH (08:24)
[2018-09-15] MEDS: diltiaZEM **CD** 180 MG CAP PO SCH (08:24)
[2018-09-15] MEDS: ALLOPURINOL 300 MG TAB PO SCH (08:24)
[2018-09-15] MEDS: AZITHROMYCIN 250 MG TAB PO SCH (08:24)
[2018-09-15] MEDS: LACTOBACILLUS ACIDOPHILUS CAP (BACID) PO SCH (08:24)
[2018-09-15] MEDS: HEPARIN SOD (PORCINE) 5000 UNITS/ML VIAL SQ SCH (08:25)
[2018-09-15] MEDS: METOPROLOL TARTRATE 100 MG TAB PO SCH (08:25)
[2018-09-15 14:00] VITALS: BP 95/52
--- NOTE | 2018-09-15 19:44 | DS.PDOC ---
Discharge Summary General Date of Admission Sep 09, 2018 at 15:30 Date of Discharge 09/15/18 Attending Physician: NA SIDIDQUI MD Discharge Summary PROCEDURES PERFORMED DURING STAY: [None]. ADMITTING DIAGNOSES: 1. Community Acquired Pneumonia 2. Acute on Chronic CKD DISCHARGE DIAGNOSES: 1. Community Acquired Pneumonia 2. Acute on Chronic CKD COMPLICATIONS/CHIEF COMPLAINT: Acute Renal Failure Pneumonia. HISTORY OF PRESENT ILLNESS: Patient is an 89 year old female with a past medical history significant for diabetes, CKD III, CHF diastolic dysfunction, and atrial fibrillation who presented to the emergency department with complaint of generalized weakness and poor appetite. Patient had admitted at that time that her had recently and she had not been eating well. She also noticed that she was developing a cough with productive cummins sputum. She had denied fevers and chills. She had presented to her primary care doctor originally and received Keflex. She continued to develop her cough and went to the ER for evaluation. In the ER the patient received a chest x-ray which suggested bilateral lower lobe pneumonia. She was subsequently started on IV Rocephin and Zithromax. She was then admitted to hospitalist service. HOSPITAL COURSE: During the patients hospital course she continued treatment for her pneumonia. She did develop watery diarrhea in the subsequent days. Her diarrhea was suspected to be secondary to her antibiotic use. After completion of her antibiotics, the patients diarrhea did resolve. She was evaluated by physical therapy and found to be fit for discharge and at her baseline. She does have a history of unrepaired hip fracture 5 years ago which has restricted her mobility and now she is mostly bedridden. Of note the patient was found to have blood pressures on the softer side. Her Diltiazem was held for most of her h ospital stay. DISCHARGE MEDICATIONS: Please see below. ALLERGIES: Please see below. PHYSICAL EXAMINATION ON DISCHARGE: VITAL SIGNS: Please see below. GENERAL: Awake, alert, and oriented. Appears in no acute distress. Lying in bed eating breakfast HEENT: Atraumatic normocephalic. Eyes are non-icteric. Trachea is midline. Mucous membranes are pink and moist CARDIOVASCULAR EXAMINATION: Normal S, S2. Regular rate and rhythm RESPIRATORY EXAMINATION: Rhonchorous breath sounds. No wheezing ABDOMINAL EXAMINATION: Soft, nontender to palpation. Positive bowel sounds throughout EXTREMITIES: No edema. Full and equal pulses in bilateral upper and lower extremities SKIN: No rashes or lesions NEUROLOGICAL EXAMINATION: No focal neurological deficit PSYCHIATRIC EXAMINATION: Mood and affect appear appropriate LABORATORY DATA: Please see below. IMAGING: AP PORTABLE CHEST: 09/09/2018. Comparison: 05/11/2018, 03/13/2017. Clinical history: Dyspnea and cough. Findings: Lung bases now show bibasilar linear atelectatic change. Superimposed patchy infiltrates would be difficult to exclude. No gross effusion. No dense consolidation with air bronchograms in the mid or upper lung zones. Heart size enlarged with left atrial and ventricular enlargement. The aorta calcified tortuous and unchanged. Airway intact. There is no gross pneumothorax or pneumomediastinum. Bones are demineralized. No free air under the diaphragm. Impression: 1. Bibasilar linear subsegmental atelectatic changes are new and greater left than right. No dense consolidation with air bronchograms but superimposed patchy infiltrates would be difficult to exclude. 2. Cardiomegaly with left atrial and ventricular enlargement but without vascular redistribution or karina edema. No gross effusion. The aorta is tortuous calcified and unchanged. Bones demineralized. Electronically Signed by Raúl Vanessa MD 09/09/2018 09:52 P RIGHT HAND COMPLETE: 09/09/2018 CLINICAL HISTORY: Swelling, proximal 2nd and 3rd digits with some drainage. FINDINGS: Four views were provided with no prior studies. There is an IV in the dorsal aspect of the hand and wrist. There is prominent soft tissue swelling over the 2nd MCP joint but also at the PIP joint of the 3rd digit and to a lesser extent the other PIP joints of the 2nd, 4th and 5th digits. Swelling along the proximal phalanges of several digits, sparing relatively the 4th. I do not see a fracture or destructive lesion, avulsion or foreign body. No definite erosions. Narrowing of all of the MCP joints and more degenerative change at CMC joints and articulations between the scaphoid and the multangular bones. Bones demineralized without definite fractures of the carpal bones, metacarpals with the distal radius and ulna. Vascular calcifications in the radial artery noted. IMPRESSION: 1. Advanced osteoporosis and degenerative changes as described. There is prominent soft tissue swelling about the 2nd MCP joint but no underlying bony destruction, fracture, erosion, foreign body or other acute finding. Soft tiss ue swelling could be related to arthritis/bursitis, infection, trauma or other. No foreign body or erosive changes. Electronically Signed by Raúl Vanessa MD 09/09/2018 09:52 P PROGNOSIS: Good ACTIVITY: [As tolerated]. DIET: As tolerated DISCHARGE PLAN: Patient is to be discharged home with home health aids. She is to follow up with her primary care within 1 week. She is to stop taking her Diltiazem until she follows up with her PCP in 1 week. At which time they can evaluate for consideration of restarting or adjusting dose due to lower than adequate blood pressures during her hospital course. DISPOSITION: 01 Home, Self-Care. DISCHARGE INSTRUCTIONS: 1. Follow-up with primary care doctor within 1 week 2. Stop Diltiazem due to low BP during hospital stay. Follow-up with PCP for consideration of restarting DISCHARGE CONDITION: [Stable]. TIME SPENT ON DISCHARGE: Greater than 40 minutes. Vital Signs/I&Os Vital Signs Date Time Temp Pulse Resp B/P (MAP) Pulse Ox O2 Delivery O2 Flow Rate FiO2 09/15/18 14:00 98.5 116 16 95/52 (66) 98 09/09/18 21:12 Room Air I&O- Last 24 Hours up to 6 AM 09/15/18 06:00 Intake Total 930 ml Output Total 0 ml Balance 930 ml Laboratory Data Labs 24H Laboratory Tests 2 09/15/18 05:42: Immature Granulocyte % (Auto) 0.6, White Blood Count 8.2, Red Blood Count 4.20, Hemoglobin 9.7L, Hematocrit 33.4L, Mean Corpuscular Volume 79.5L, Mean Corpuscular Hemoglobin 23.1L, Mean Corpuscular Hemoglobin Concent 29.0L, Red Cell Distribution Width 17.8H, Platelet Count 227, Neutrophils (%) (Auto) 77.1H, Lymphocytes (%) (Auto) 11.2L, Monocytes (%) (Auto) 6.6H, Eosinophils (%) (Auto) 3.9H, Basophils (%) (Auto) 0.6, Neutrophils # (Auto) 6.4, Lymphocytes # (Auto) 0.9L, Monocytes # (Auto) 0.5, Eosinophils # (Auto) 0.3, Basophils # (Auto) 0.1, Nucleated Red Blood Cells % (auto) 0.0, Anion Gap 6L, Glomerular Filtration Rate > 60.0, Blood Urea Nitrogen 11, Creatinine 0.78, Sodium Level 140, Potassium Level 3.5, Chloride Level 110H, Carbon Dioxide Level 24, Calcium Level 8.5L CBC/BMP Laboratory Tests 09/15/18 05:42 Red Blood Count 4.20, Mean Corpuscular Volume 79.5 L, Mean Corpuscular Hemoglobin 23.1 L, Mean Corpuscular Hemoglobin Concent 29.0 L, Red Cell Distribution Width 17.8 H, Neutrophils (%) (Auto) 77.1 H, Lymphocytes (%) (Auto) 11.2 L, Monocytes (%) (Auto) 6.6 H, Eosinophils (%) (Auto) 3.9 H, Basophils (%) (Auto) 0.6, Neutrophils # (Auto) 6.4, Lymphocytes # (Auto) 0.9 L, Monocytes # (Auto) 0.5, Eosinophils # (Auto) 0.3, Basophils # (Auto) 0.1, Calcium Level 8.5 L Microbiology Microbiology 09/09/18 Blood Culture - Final, Complete NO GROWTH AFTER 5 DAYS 09/09/18 Blood Culture - Final, Complete NO GROWTH AFTER 5 DAYS 09/09/18 Gram Stain - Final, Complete 09/09/18 Wound Culture - Final, Complete Staphylococcus Sp Coag Neg Discharge Medications Scheduled Allopurinol (Zyloprim) 300 Mg Tab, 300 MG PO DAILY, (Reported) Aspirin (Aspirin 81) 81 Mg Tab, 81 MG PO DAILY, (Reported) ON HOLD FOR 2 WEEKS DUE TO GOUT STARTING 08/26/18 Bumetanide (Bumetanide) 1 Mg Tab, 1 MG PO BID, (Reported) TAKES SECOND DOSE AT DINNERTIME Ezetimibe (Zetia) 10 Mg Tab, 10 MG PO QHS, (Reported) Folic Acid (Folic Acid) 1 Mg Tab, 1 MG PO QHS, (Reported) Meloxicam (Meloxicam) 7.5 Mg Tab, 7.5 MG PO BID, (Reported) Metoprolol Tartrate (Metoprolol Tartrate) 100 Mg Tab, 100 MG PO BID, (Reported) Penicillin V Potassium (Penicillin V Potassium) 500 Mg Tab, 500 MG PO TID, (Reported) STARTED 09/08/18 FOR 10 DAYS Potassium Chloride (Potassium Chloride ER) 10 Meq Tab, 10 MEQ PO BID, (Reported) Spironolactone (Spironolactone) 25 Mg Tab, 25 MG PO DAILY, (Reported) Scheduled PRN Acetaminophen/Codeine (Tylenol/Codeine #3) Tab, 1 TAB PO BID PRN for PAIN, (Reported) Colchicine (Colchicine) 0.6 Mg Tab, 0.6 MG PO DAILY PRN for GOUT, (Reported) Eucerin (Eucerin) 1 Cre Cre, 1 DOSE TOP BID PRN for DRY SKIN, (Reported) USES ON LEGS AND ARMS Allergies Coded Allergies: No Known Allergies (Unverified , 05/11/18) GME ATTESTATION GME ATTESTATION My faculty preceptor for this patient encounter was physically present during the encounter and was fully available. All aspects of the patient interview, examination, medical decision making process, and medical care plan development were reviewed and approved by the faculty preceptor. The faculty preceptor is aware and concurs with the plan as stated in the body of this note and will attest to such by his/her cosignature. JESSICA COVINGTON DO Sep 15, 2018 19:44
== END 2018-09-15 16:29 | disposition home or self-care (01) | DRG 682 ==
LOC: EDBD 10:19 → M ED 10:19 → M ED INP 15:30 → M PCU 09-10 00:25 → M MSPAV 09-10 13:50
PROVIDERS: ADMIT Internal Medicine; ATTEND Internal Medicine
DX: N17.9 Acute kidney failure, unspecified (principal); J18.9 Pneumonia, unspecified organism; E43 Unspecified severe protein-calorie malnutrition; Z68.1 Body mass index [BMI] 19.9 or less, adult; I50.32 Chronic diastolic (congestive) heart failure; N18.3 Chronic kidney disease, stage 3 (moderate); E11.9 Type 2 diabetes mellitus without complications; I48.91 Unspecified atrial fibrillation; M81.0 Age-related osteoporosis without current pathological fracture; Z79.899 Other long term (current) drug therapy; Z79.01 Long term (current) use of anticoagulants; E78.5 Hyperlipidemia, unspecified; Z79.82 Long term (current) use of aspirin

== ENCOUNTER 2018-11-23 15:15 | Inpatient (IN) | payer MEDICARE, OTHER ==
[~2018-11-23] VITALS: Ht 157.5 cm; Wt 47.8 kg
[~2018-11-23 15:15] MED LIST changes: +ACET-716 PO; -ACET30TAB PO; +ASPI-1 PO; -ASPI325T PO; +ASPI81TA26 PO; +CART180C3 PO; +COLC1TAB13 PO; +HYDR-2541 PO; -HYDR25TAB PO; +MELO15TA28 PO; +MELO7.5T7 PO; +PENI250T57 PO; +PENI500T PO; +POTA1TAB23 PO
[2018-11-23] MEDS ORDERED: LOPR1TAB6 PO (15:35)
[2018-11-23 16:02] LABS: BASO # 0.1 10^3/uL (0.0-0.2); BASO % 0.3 % (0.0-1.0); EOS # 0.1 10^3/uL (0.0-0.50); EOS % 0.4 % (0.0-3.0); HEMATOCRIT 34.1 % (36.0-47.0); HEMOGLOBIN 10.2 g/dl (12.0-15.5); LYMPH # 0.7 10^3/uL (1.5-4.5); LYMPH % 3.6 % (24.0-44.0); MEAN CORPUSCULAR HGB CONC 29.9 g/dl (32.0-36.5); MEAN CORPUSCULAR VOLUME 83.6 fl (80.0-96.0); MONO % 5.4 % (0.0-5.0); NEUTROPHILS # 16.3 10^3/uL (1.8-7.7); NEUTROPHILS % 89.8 % (36.0-66.0); PLATELET COUNT, AUTOMATED 269 10^3/uL (150-450); RED BLOOD COUNT 4.08 10^6/uL (4.00-5.40); WHITE BLOOD COUNT 18.1 10^3/uL (4.0-10.0)
[2018-11-23 16:17] LABS: INR 1.08; PROTHROMBIN TIME 14.1 SECONDS (12.1-14.4)
--- NOTE | 2018-11-23 16:25 | REP ---
Clinical: Acute chest pain. Comparison: 09/09/2018. Findings: Stable cardiomegaly and diffuse chronic pleuroparenchymal changes are noted. No definite acute consolidation or effusion. No pneumothorax. Skeletal structures demonstrate osteopenia and degenerative changes. Impression: Chronic stable-appearing changes. No obvious acute process. Electronically Signed by Luis F Cannon MD 11/23/2018 04:16 P
[2018-11-23] MEDS ORDERED: ACETAMINOPH W/CODEINE #3 TAB UD PO ONE ×2 (16:30→20:45)
[2018-11-23 16:34] LABS: ALBUMIN 2.7 GM/DL (3.2-5.2); ALT/SGPT 8 U/L (12-78); BILIRUBIN,DIRECT 0.2 MG/DL (0.0-0.2); BILIRUBIN,TOTAL 0.6 MG/DL (0.2-1.0); BLOOD UREA NITROGEN 14 MG/DL (7-18); CALCIUM LEVEL 9.5 MG/DL (8.8-10.2); CARBON DIOXIDE LEVEL 28 MEQ/L (21-32); CHLORIDE LEVEL 102 MEQ/L (98-107); CPK CREATINE PHOSPHOKINASE 38 U/L (26-192); CREATININE FOR GFR 0.78 MG/DL (0.55-1.30); GLOMERULAR FILTRATION RATE > 60.0 (>32); GLUCOSE, FASTING 164 MG/DL (70-100); LIPASE 99 U/L (73-393); MB/CK RELATIVE INDEX 3.42 (< OR =4); NT-PRO BNP 3203 PG/ML (<450); POTASSIUM SERUM 4.4 MEQ/L (3.5-5.1); SODIUM LEVEL 138 MEQ/L (136-145); THYROID STIMULATING HORMONE 0.961 uIU/ML (0.358-3.740); TOTAL PROTEIN 7.2 GM/DL (6.4-8.2); TROPONIN I < 0.02 NG/ML (< 0.10)
[2018-11-23] MEDS ORDERED: METOPROLOL TART 50 MG TAB PO ONE (17:30)
[2018-11-23] MEDS ORDERED: ISOVUE-370 76% 100ML VIAL (Q9967) As Ordered ONE (17:43)
--- NOTE | 2018-11-23 18:13 | REP ---
Clinical: Acute chest pain. Technique: Axial contrast enhanced images from the thoracic inlet to the upper abdomen using 100 ml Isovue 370 intravenous contrast material with coronal and sagittal re-formations. Comparison: 10/27/2016 Findings: Satisfactory enhancement of the pulmonary vasculature is achieved and no filling defects are identified to suggest pulmonary embolus. Moderate areas of consolidation noted in the bilateral lower lobes, lingula and right middle lobe. No effusion. No pneumothorax. No significant adenopathy. Atherosclerotic changes to the thoracic aorta and coronary arteries noted without evidence for aortic aneurysm. Cardiomegaly is appreciated without pericardial effusion. Osseous structures demonstrate osteopenia and degenerative changes without focal abnormality and chronic compression deformity at T10 is again noted and unchanged. Impression: 1. No evidence for pulmonary embolus. 2. Bilateral consolidations consistent with multifocal pneumonia. 3. Atherosclerotic changes to the thoracic aorta and coronary arteries with chronic cardiomegaly. 4. Degenerative changes to the osseous structures including chronic stable compression fracture at T10. Thoracic aorta is normal caliber without aneurysm or dissection. Heart and pericardium are normal. Bilateral lung saldivar are well aerated and clear without acute pulmonary parenchymal consolidation or atelectasis. No nodule or mass lesion. No pleural effusion/reaction. No pneumothorax. No adenopathy. Impression: No evidence for pulmonary embolus. No acute pleuroparenchymal or mediastinal process. Electronically Signed by Luis F Cannon MD 11/23/2018 06:04 P
[2018-11-23] MEDS ORDERED: cefTRIAXone SOD 2 GM in D5W MINI-BAG PLUS 50 ML IV ONE (19:00)
[2018-11-23] MEDS ORDERED: AZITHROMYCIN INJ 500 MG, VIAL MATE ADAPTER 1 EACH in D5W 250 ML IV ONE (19:00)
[2018-11-23] MEDS ORDERED: EUCECRE8 TOP (19:32)
[2018-11-23] MEDS ORDERED: CLOB5CR TOP (19:32)
[2018-11-23] MEDS ORDERED: MOBI4TAB PO (19:32)
[2018-11-23] MEDS ORDERED: METO100T5 PO (19:32)
--- NOTE | 2018-11-23 21:13 | ECGEPIP ---
[facility] [place] - ED Test Date: 2018-11-23 Pat Name: KATT PENN Department: Room: - Gender: Female Cell Biology Scientist: YOLI : [id number] Requested By: Alicia Vidal Order Number: [id number] Reading MD: Alicia Vidal Measurements Intervals [place] Rate: 127 P: HI: -1 QRS: QRSD: 82 T: QT: 284 QTc: 414 Interpretive Statements ATRIAL FIBRILLATION WITH RAPID VENTRICULAR RESPONSE BORDERLINE LEFT AXIS DEVIATION LOW QRS VOLTAGE IN EXTREMITY LEADS NONSPECIFIC ST & T-WAVE ABNORMALITY ABNORMAL RHYTHM ECG INCREASED RATE 09/09/18 Electronically Signed on 11-23-2018 21:12:59 EDT by Alicia Vidal
[2018-11-23] MEDS ORDERED: MAALOX 30 ML SUSP *UDC PO PRN (21:15)
[2018-11-23] MEDS ORDERED: PERCOCET 5MG/325MG TAB PO PRN (21:30)
[2018-11-23 23:48] VITALS: BP 91/73
--- NOTE | 2018-11-24 00:13 | HPEPDOC ---
General Date of Admission November 23, 2018 at 21:12 Date of Service: November 23, 2018 Chief Complaint The patient is a 88-year-old female admitted with a reason for visit of Atrial Fibrillation With Rvr,Pneumonia. Source: Patient, RN/, Old records Severity: Moderate Associated Symptoms: Chest Pain History of Present Illness 88-year-old female with past medical history of diabetes, chronic kidney disease (CKD) III, chronic systolic and diastolic heart failure ( EF 50% in 2017), atrial fibrillation, not on anticoagulation, hyperlipidemia, Chronic T10 compression fracture, arthritis, osteoporosis, venous stasis dermatitis, chronic pain on opiates at home , history of unrepaired right hip fracture 5 years ago which has restricted her mobility and now is mostly bedridden can only stand and pivot presents to the emergency room with increased generalized body pain for 1 week an left sided rib cage pain for 1 day Which has not been controlled with her pain medications. The pain is sharp and located on the left lateral an anterior chest wall without any radiation and not increased by deep breaths or change of posture. She feels its like se broke some ribs there. She says she had a big hug from a big safia yesterday an that really brought on this severe pain. Before that the pain was there but manageable wit her pain meds. In the ED she was found to be in Afib with RVR . Her WBC was elevate to 18K. She had a CT angio of the chest done which showed No evidence for pulmonary embolus, Bilateral consolidations consistent with multifocal pneumonia, Atherosclerotic changes to the thoracic aorta and coronary arteries with chronic cardiomegaly, Degenerative changes to the osseous structures including chronic stable compress ion fracture at T10. She was admitted for ultifocal pneumonia, afib with rvr and severe generalized pain Home Medications Scheduled Allopurinol (Zyloprim) 300 Mg Tab, 300 MG PO DAILY, (Reported) Aspirin (Aspirin EC) 81 Mg Tab, 81 MG PO DAILY, (Reported) Bumetanide (Bumetanide) 1 Mg Tab, 1 MG PO BID, (Reported) TAKES SECOND DOSE AT DINNERTIME Clobetasol Propionate (Clobetasol Emollient 0.05% Crm) 60 Gm Cream..g., 1 DOSE TOP BID, (Reported) USES ON LEGS: TWO WEEKS ON; TWO WEEKS OFF, ONE MORE WEEK ON Ezetimibe (Zetia) 10 Mg Tab, 10 MG PO QHS, (Reported) Folic Acid (Folic Acid) 1 Mg Tab, 1 MG PO QHS, (Reported) Meloxicam (Mobic) 7.5 Mg Tablet, 7.5 MG PO BID, (Reported) Metoprolol Tartrate (Metoprolol Tartrate) 100 Mg Tablet, 50 MG PO DAILY, (Reported) Potassium Chloride (Potassium Chloride) 10 Meq Tab, 10 MEQ PO BID, (Reported) Spironolactone (Spironolactone) 25 Mg Tab, 25 MG PO DAILY, (Reported) Scheduled PRN Acetaminophen with Codeine (Acetaminophen-Cod #3 Tablet) 1 Each Tab, 1 TAB PO BID PRN for PAIN, (Reported) Colchicine (Colchicine) 0.6 Mg Tab, 0.6 MG PO DAILY PRN for GOUT, (Reported) Lanolin Alcohol/Mo/W.pet/Magnet (Eucerin Creme) 454 Gm Cream..g., 1 DOSE TOP BID PRN for DRY SKIN, (Reported) USES ON ARMS AND LEGS NEEDED Allergies Coded Allergies: No Known Allergies (Unverified , 05/11/18) Past Medical History Medical History Diabetes, chronic kidney disease (CKD) III, chronic systolic and diastolic heart failure ( EF 50% in 2017), atrial fibrillation, not on anticoagulation, hyperlipidemia, Chronic T10 compression fracture, arthritis, osteoporosis, chronic pain on opiates at home , history of unrepaired right hip fracture 5 years ago which has restricted her mobility , Bilateral legs with venous stasis dermatitis Surgical History Bilateral cataract surgery, hysterectomy Family History FATHER: , STOMACH ULCERS, MOTHER: , OF PNEUMONIA, SIBLINGS: , DIAGNOSED WITH HYPERTENSION, HEART DISEASE, CANCER, 2 BROTHER(S) ,1 SISTER(S) . 1 SON(S) , 1 DAUGHTER(S) - HEALTHY , PARENTS WHEN SHE WAS A SMALL CHILD. Social History * Smoker: Denies Alcohol: Denies Drugs: denies A-FIB/CHADSVASC A-FIB History Current/History of A-Fib/PAF?: Yes Current PO Anticoag Therapy: No Review of Systems Constitutional: Reports: Weakness; Denies: Chills, Fever, Night Sweats Eyes: Denies: Pain, Vision change ENT: Denies: Head Aches, Ear Pain, Dysphagia Skin: Reports: Rash (Both low extremity), Itching, Dry, Breakdown (both legs with superficial multiple small ulcers.) Pulmonary: Reports: Cough Cardiovascular: Reports: Chest Pain, Palpitations, Edema Gastrointestinal: Reports: Constipation, Other Symptoms (hernia); Denies: Nausea, Vomiting, Abdominal Pain, Diarrhea Genitourinary: Reports: Incontinence Hematologic: Denies: Bruising, Bleeding Excessively Musculoskeletal: Reports: Neck Pain, Back Pain, Shoulder Pain, Leg Pain, Joint Pain, Muscle Pain Neurological: Denies: Change in speech, Confusion Physical Examination General Exam: Positive: Alert, Cooperative, Mild Distress Eye Exam: Positive: PERRLA, Conjunctiva & lids normal, EOMI; Negative: Sclera icteric ENT Exam: Positive: Atraumatic, Mucous membr. moist/pink, Pharynx Normal Neck Exam: Positive: Supple Chest Exam: Positive: Clear to auscultation; Negative: Rales, Rhonchi, Wheezing Heart Exam: Positive: Tachycardic, Irregular Rhythm, Normal S1, Normal S2; Negative: Gallops, Murmurs, Rubs Telemetry: Positive: Atrial fibrillation Abdomen Exam: Positive: Normal bowel sounds, Soft, Other (distended, hernia) Extremity Exam: Negative: Clubbing, Cyanosis, Edema Skin Exam: Positive: Breakdown (small multiple less than 1 cm ulcers on both legs), Other skin issue (Bilateral stasis dermatitis) Neuro Exam: Positive: Normal Speech, Normal Tone, Sensation Intact Psych Exam: Positive: Mental status NL, Memory Intact, Oriented x 3 Vital Signs Vital Signs Date Time Temp Pulse Resp B/P (MAP) Pulse Ox O2 Delivery O2 Flow Rate FiO2 11/23/18 21:31 99.2 109 18 93 Room Air 11/23/18 21:01 123/80 (94) Laboratory Data Labs 24H Laboratory Tests 2 11/23/18 15:49: Immature Granulocyte % (Auto) 0.5, White Blood Count 18.1H, Red Blood Count 4.08, Hemoglobin 10.2L, Hematocrit 34.1L, Mean Corpuscular Volume 83.6, Mean Corpuscular Hemoglobin 25.0L, Mean Corpuscular Hemoglobin Concent 29.9L, Red Cell Distribution Width 18.7H, Platelet Count 269, Neutrophils (%) (Auto) 89.8H, Lymphocytes (%) (Auto) 3.6L, Monocytes (%) (Auto) 5.4H, Eosinophils (%) (Auto) 0.4, Basophils (%) (Auto) 0.3, Neutrophils # (Auto) 16.3H, Lymphocytes # (Auto) 0.7L, Monocytes # (Auto) 1.0H, Eosinophils # (Auto) 0.1, Basophils # (Auto) 0.1, Nucleated Red Blood Cells % (auto) 0.0, Prothrombin Time 14.1, Prothromb Time International Ratio 1.08, Anion Gap 8, Glomerular Filtration Rate > 60.0, Calcium Level 9.5, Aspartate Amino Transf (AST/SGOT) 12, Alanine Aminotransferase (ALT/SGPT) 8L, Alkaline Phosphatase 100, Total Bilirubin 0.6, Direct Bilirubin 0.2, Total Creatine Kinase 38, Creatine Kinase MB 1.0, Creatine Kinase MB Relative Index 3.42, Troponin I < 0.02, KF-Ukp-A-Type Natriuretic Peptide 3203H, Total Protein 7.2, Albumin 2.7L, Albumin/Globulin Ratio 0.60L, Lipase 99, Thyroid Stimulating Hormone (TSH) 0.961 11/23/18 16:44: Lactic Acid Level 1.5 CBC/BMP Laboratory Tests 11/23/18 15:49 Red Blood Count 4.08, Mean Corpuscular Volume 83.6, Mean Corpuscular Hemoglobin 25.0 L, Mean Corpuscular Hemoglobin Concent 29.9 L, Red Cell Distribution Width 18.7 H, Neutrophils (%) (Auto) 89.8 H, Lymphocytes (%) (Auto) 3.6 L, Monocytes (%) (Auto) 5.4 H, Eosinophils (%) (Auto) 0.4, Basophils (%) (Auto) 0.3, Neutrophils # (Auto) 16.3 H, Lymphocytes # (Auto) 0.7 L, Monocytes # (Auto) 1.0 H, Eosinophils # (Auto) 0.1, Basophils # (Auto) 0.1 Microbiology Microbiology 11/23/18 Blood Culture, Received Pending 11/23/18 Blood Culture, Received Pending 11/23/18 Respiratory Virus Panel (PCR) ([facility]) - Final, Complete Assessment/Plan 88-year-old female with past medical history of diabetes, chronic kidney disease (CKD) III, gout, chronic systolic and diastolic heart failure ( EF 50% in 2017), atrial fibrillation, not on anticoagulation, hyperlipidemia, Chronic T10 compression fracture, arthritis, osteoporosis, chronic pain or opiates at home , history of unrepaired right hip fracture 5 years ago which has restricted her mobility and now is mostly bedridden can only stand and pivot presents to the emergency room with increased generalized body pain for 1 week an left sided rib cage pain for 1 day Which has not been controlled with her pain medications. The pain is sharp and located on the left lateral an anterior chest wall without any radiation and not increased by deep breaths or change of posture. She feels its like se broke some ribs there. She says she had a big hug from a big safia y that really brought on this severe pain. Before that the pain was there but manageable wit her pain meds. In the ED she was found to be in Afib with RVR . Her WBC was elevate to 18K. She had a CT angio of the chest done which showed No evidence for pulmonary embolus, Bilateral consolidations consistent with multifocal pneumonia, Atherosclerotic changes to the thoracic aorta and coronary arteries with chronic cardiomegaly, Degenerative changes to the osseous structures including chronic stable compression fracture at T10. She was admitted for ultifocal pneumonia, afib with rvr and severe generalized pain Atrial fibrillation with rvr probably due to pain not on anticoagulation. only on ASA. on metoprolol tartrate 50 mg once a day will increase to twice a day. Pneumonia I am not sure if this is pneumonia or atelectasis with associated chronic fibrosis. patient does have an elvated WBC but no fever or any significant cough. will continue with ceftriaxone and azithromycin for now. Await sputum and blood cultures if negative will consider stopping antibiotics. The elevated WB C could be due to uncontrolled pain which seems to be her complaint Generalized pain with osteoporosis and osteoarthritis Chronic T 10 compression fracture, Chest pain will start on percocet continue meloxicam. CKD stage 3 stable Chronic Systolic and Diastolic chf euvolemic continue Bumax and spironolactone Gout continue allopurinol. Hyperlipidemia continue Zetia. Under weight with severe Protein calorie malnutrition. severe with BMI of 18, temporal muscle Plan / VTE VTE Prophylaxis Ordered?: Yes KELVIN MCRAE MD November 23, 2018 23:08
[2018-11-24] MEDS: SENOKOT S TAB PO SCH ×3 (00:19→21:00)
[2018-11-24] MEDS: EZETIMIBE 10 MG TAB (ZETIA) PO SCH ×2 (01:26→21:31)
[2018-11-24] MEDS: MELOXICAM (MOBIC) 7.5 MG TAB PO SCH ×3 (01:27→21:00)
[2018-11-24 06:00] VITALS: BP 97/59
[2018-11-24 06:26] LABS: BASO # 0.1 10^3/uL (0.0-0.2); BASO % 0.3 % (0.0-1.0); EOS % 0.1 % (0.0-3.0); HEMATOCRIT 31.1 % (36.0-47.0); HEMOGLOBIN 9.1 g/dl (12.0-15.5); LYMPH # 0.7 10^3/uL (1.5-4.5); LYMPH % 2.8 % (24.0-44.0); MEAN CORPUSCULAR HEMOGLOBIN 24.5 pg (27.0-33.0); MEAN CORPUSCULAR HGB CONC 29.3 g/dl (32.0-36.5); MEAN CORPUSCULAR VOLUME 83.8 fl (80.0-96.0); MONO # 1.3 10^3/uL (0.0-0.8); MONO % 5.5 % (0.0-5.0); NEUTROPHILS # 22.1 10^3/uL (1.8-7.7); NEUTROPHILS % 90.6 % (36.0-66.0); PLATELET COUNT, AUTOMATED 232 10^3/uL (150-450); RED BLOOD COUNT 3.71 10^6/uL (4.00-5.40); WHITE BLOOD COUNT 24.4 10^3/uL (4.0-10.0)
[2018-11-24 06:50] LABS: CALCIUM LEVEL 8.9 MG/DL (8.8-10.2); CREATININE FOR GFR 1.04 MG/DL (0.55-1.30); GLOMERULAR FILTRATION RATE 53.5 (>32); MAGNESIUM LEVEL 1.6 MG/DL (1.8-2.4); POTASSIUM SERUM 4.3 MEQ/L (3.5-5.1)
[2018-11-24] MEDS ORDERED: MAG SULF 1GM/100ML (MAG RUN) 1 GM in APPROPRIATE DILUENT 1 EA IV ONE (08:30)
[2018-11-24] MEDS: SPIRONOLACTONE 25 MG TAB PO SCH (08:50)
[2018-11-24] MEDS: BUMETANIDE 1 MG TAB PO SCH ×2 (08:51→18:06)
[2018-11-24] MEDS: ASPIRIN 81 MG ENTERIC TAB PO SCH (08:52)
[2018-11-24] MEDS: ENOXAPARIN 30 MG/0.3 ML SYR (J1650) SC SCH (08:52)
[2018-11-24] MEDS: ALLOPURINOL 300 MG TAB PO SCH (08:52)
[2018-11-24] MEDS: MOM 30ML SUSPENSION UDC PO SCH (08:52)
[2018-11-24] MEDS: METOPROLOL TART 50 MG TAB PO SCH ×2 (09:00→21:31)
--- NOTE | 2018-11-24 11:02 | IPNPDOC ---
Text Note Date of Service The patient was seen on 11/24/18. NOTE Subjective: Patient seen and examined at bedside. No acute overnight events reported. Patient states her pain is actually controlled this morning. States that her pain is controlled with Tylenol #3 which she says she has been taking for years. Objective: General: NAD, lying comfortably in bed, elderly, frail HEENT: NC/AT, EOMI, hard of hearing Lungs: CTA B/L Heart: +S1S2, irregular Abd: soft, NT, +BS Ext: no edema A/P: 88-year-old female with PMHx of diabetes, chronic kidney disease (CKD) III, gout, chronic systolic and diastolic heart failure ( EF 50% in 2017), atrial fibrillation, not on anticoagulation, hyperlipidemia, Chronic T10 compression fracture, arthritis, osteoporosis, chronic pain or opiates at home , history of unrepaired right hip fracture 5 years ago which has restricted her mobility and now is mostly bedridden can only stand and pivot presents to the emergency room with increased generalized body pain for 1 week and left sided rib cage pain for 1 day Which has not been controlled with her pain medications. In the ED she was found to be in Afib with RVR, with leukocytosis, b/l consolidations on CXR consistent with multifocal pneumonia. She was admitted for multifocal pneumonia, afib with rvr and severe generalized pain. #Afib/RVR - possibly secondary to pain - metroprolol tartrate doubled to 50 BID - ASA for anti-coagulation as per home regimen #CAP - not clear if related to chronic fibrosis - +leukocytosis, but no fever or cough - continue with ceftriaxone and azithromycin for now - follow BCX and SCx #Generalized pain with osteoporosis and osteoarthritis - Chronic T 10 compression fracture, Chest pain - will start on percocet - continue meloxicam. #CKD stage 3 - stable #Chronic Systolic and Diastolic chf - euvolemic - continue Bumax and spironolactone #Gout - continue allopurinol. #Hyperlipidemia - continue Zetia. #Under weight with severe Protein calorie malnutrition. - severe with BMI of 18, bi-temporal wasting #DVT prophylaxis #immobility - history of unrepaired right hip fracture 5 years ago which has restricted her mobility - PT pending Dispo: pending cultures, PT, pain control VS,Fishbone, I+O VS, Fishbone, I+O Laboratory Tests 5/27/19 15:49 Red Blood Count 4.08, Mean Corpuscular Volume 83.6, Mean Corpuscular Hemoglobin 25.0 L, Mean Corpuscular Hemoglobin Concent 29.9 L, Red Cell Distribution Width 18.7 H, Neutrophils (%) (Auto) 89.8 H, Lymphocytes (%) (Auto) 3.6 L, Monocytes (%) (Auto) 5.4 H, Eosinophils (%) (Auto) 0.4, Basophils (%) (Auto) 0.3, Neutrophils # (Auto) 16.3 H, Lymphocytes # (Auto) 0.7 L, Monocytes # (Auto) 1.0 H, Eosinophils # (Auto) 0.1, Basophils # (Auto) 0.1 11/24/18 06:08 Red Blood Count 3.71 L, Mean Corpuscular Volume 83.8, Mean Corpuscular Hemoglobin 24.5 L, Mean Corpuscular Hemoglobin Concent 29.3 L, Red Cell Distribution Width 18.6 H, Neutrophils (%) (Auto) 90.6 H, Lymphocytes (%) (Auto) 2.8 L, Monocytes (%) (Auto) 5.5 H, Eosinophils (%) (Auto) 0.1, Basophils (%) (Auto) 0.3, Neutrophils # (Auto) 22.1 H, Lymphocytes # (Auto) 0.7 L, Monocytes # (Auto) 1.3 H, Eosinophils # (Auto) 0.0, Basophils # (Auto) 0.1, Calcium Level 8.9 Vital Signs Date Time Temp Pulse Resp B/P (MAP) Pulse Ox O2 Delivery O2 Flow Rate FiO2 11/24/18 09:00 110 98/56 11/24/18 06:00 98.4 18 94 11/23/18 23:01 Room Air I&O- Last 24 Hours up to 6 AM 11/24/18 06:00 Intake Total 305 ml Balance 305 ml RANULFO GILES MD November 24, 2018 11:02
[2018-11-24 14:00] VITALS: BP 97/59
[2018-11-24] MEDS: PERCOCET 5MG/325MG TAB PO PRN ×2 (14:46→21:34)
[2018-11-24] MEDS: cefTRIAXone SOD 1 GM in D5W MINI-BAG PLUS 50 ML IV SCH (18:06)
[2018-11-24] MEDS: AZITHROMYCIN 250 MG TAB PO SCH (21:31)
[2018-11-24] MEDS: FOLIC ACID 1 MG TAB PO SCH (21:31)
[2018-11-24 22:00] VITALS: BP 144/77
[2018-11-24] MEDS ORDERED: ONDANSETRON 4 MG TAB (S0181) PO PRN (23:00)
[2018-11-25 06:00] VITALS: BP 90/55
[2018-11-25 06:11] LABS: BASO % 0.3 % (0.0-1.0); EOS # 0.1 10^3/uL (0.0-0.50); EOS % 0.3 % (0.0-3.0); HEMATOCRIT 29.9 % (36.0-47.0); HEMOGLOBIN 8.8 g/dl (12.0-15.5); LYMPH # 0.4 10^3/uL (1.5-4.5); MEAN CORPUSCULAR HEMOGLOBIN 24.4 pg (27.0-33.0); MEAN CORPUSCULAR HGB CONC 29.4 g/dl (32.0-36.5); MEAN CORPUSCULAR VOLUME 83.1 fl (80.0-96.0); MONO # 0.7 10^3/uL (0.0-0.8); NEUTROPHILS # 13.2 10^3/uL (1.8-7.7); NEUTROPHILS % 90.7 % (36.0-66.0); PLATELET COUNT, AUTOMATED 206 10^3/uL (150-450); WHITE BLOOD COUNT 14.5 10^3/uL (4.0-10.0)
[2018-11-25 06:31] LABS: CALCIUM LEVEL 8.8 MG/DL (8.8-10.2); CREATININE FOR GFR 1.25 MG/DL (0.55-1.30); GLOMERULAR FILTRATION RATE 43.3 (>32); POTASSIUM SERUM 4.1 MEQ/L (3.5-5.1)
[2018-11-25] MEDS ORDERED: VANCOMYCIN HCL 750 MG, VIAL MATE ADAPTER 1 EACH in D5W 250 ML IV SCH (08:00)
[2018-11-25] MEDS ORDERED: VANCOMYCIN HCL 1,000 MG, VIAL MATE ADAPTER 1 EACH in D5W 250 ML IV SCH (08:15)
[2018-11-25 08:31] LABS: MAGNESIUM LEVEL 2.1 MG/DL (1.8-2.4)
[2018-11-25] MEDS: MOM 30ML SUSPENSION UDC PO SCH (09:00)
[2018-11-25] MEDS ORDERED: VANCOMYCIN HCL 1,000 MG, VIAL MATE ADAPTER 1 EACH in D5W 250 ML IV ONE (09:00)
[2018-11-25] MEDS: SENOKOT S TAB PO SCH ×2 (09:00→20:31)
[2018-11-25] MEDS: MELOXICAM (MOBIC) 7.5 MG TAB PO SCH (09:00)
[2018-11-25 09:18] LABS: C REACTIVE PROTEIN QUANTITATIV 18.2 MG/DL (0.00-0.30)
[2018-11-25] MEDS ORDERED: ONDANSETRON 4MG/2ML VIAL (J2405) IV SCH (11:00)
[2018-11-25 11:08] LABS: ERYTHROCYTE SEDIMENTATION RATE 81 mm/hr (0-42)
[2018-11-25] MEDS: ACETAMINOPH W/CODEINE #3 TAB UD PO PRN ×2 (11:46→18:20)
[2018-11-25] MEDS ORDERED: ACETAMINOPH W/CODEINE #3 TAB UD PO PRN (12:30)
--- NOTE | 2018-11-25 13:12 | IPNPDOC ---
Text Note Date of Service The patient was seen on 11/25/18. NOTE Subjective: Patient seen and examined at bedside. Complains of nausea this morning, and again notes her pain is controlled with Tylenol #3 which she says she has been taking for years. Objective: General: NAD, lying comfortably in bed, elderly, frail HEENT: NC/AT, EOMI, hard of hearing Lungs: CTA B/L Heart: +S1S2, irregular Abd: soft, NT, +BS Ext: no edema A/P: 88-year-old female with PMHx of diabetes, chronic kidney disease (CKD) III, gout, chronic systolic and diastolic heart failure ( EF 50% in 2017), atrial fibrillation, not on anticoagulation, hyperlipidemia, Chronic T10 compression fracture, arthritis, osteoporosis, chronic pain or opiates at home , history of unrepaired right hip fracture 5 years ago which has restricted her mobility and now is mostly bedridden can only stand and pivot presents to the emergency room with increased generalized body pain for 1 week and left sided rib cage pain for 1 day Which has not been controlled with her pain medications. In the ED she was found to be in Afib with RVR, with leukocytosis, b/l consolidations on CXR co nsistent with multifocal pneumonia, and now with staph aureus bacteremia. #bacteremia - BCx + staph aureus - sensitivities pending - ID c/s pending - started vancomycin IV - echo pending #Afib/RVR - possibly secondary to pain - metroprolol tartrate doubled to 50 BID - ASA for anti-coagulation as per home regimen #CAP - not clear if related to chronic fibrosis - leukocytosis improving, but no fever or cough - continue with ceftriaxone and azithromycin for now - follow BCX and SCx #Generalized pain with osteoporosis and osteoarthritis - Chronic T 10 compression fracture, Chest pain - will start on percocet - continue meloxicam. #CKD stage 3 - stable #Chronic Systolic and Diastolic chf - euvolemic - continue Bumex and spironolactone #Gout - continue allopurinol. #Hyperlipidemia - continue Zetia. #Under weight with severe Protein calorie malnutrition. - severe with BMI of 18, bi-temporal wasting #DVT prophylaxis #immobility - history of unrepaired right hip fracture 5 years ago which has restricted her mobility - PT pending Dispo: pending ID c/s, echo, IV abx VS,Fishbone, I+O VS, Fishbone, I+O Laboratory Tests 11/25/18 05:30 Red Blood Count 3.60 L, Mean Corpuscular Volume 83.1, Mean Corpuscular Hemoglobin 24.4 L, Mean Corpuscular Hemoglobin Concent 29.4 L, Red Cell Distribution Width 18.5 H, Neutrophils (%) (Auto) 90.7 H, Lymphocytes (%) (Auto) 3.0 L, Monocytes (%) (Auto) 5.0, Eosinophils (%) (Auto) 0.3, Basophils (%) (Auto) 0.3, Neutrophils # (Auto) 13.2 H, Lymphocytes # (Auto) 0.4 L, Monocytes # (Auto) 0.7, Eosinophils # (Auto) 0.1, Basophils # (Auto) 0.0, Calcium Level 8.8 Vital Signs Date Time Temp Pulse Resp B/P (MAP) Pulse Ox O2 Delivery O2 Flow Rate FiO2 11/25/18 11:46 16 11/25/18 06:00 97.5 115 90/55 (67) 93 11/23/18 23:01 Room Air I&O- Last 24 Hours up to 6 AM 11/25/18 06:00 Intake Total 430 ml Balance 430 ml RANULFO GILES MD November 25, 2018 13:12
[2018-11-25] MEDS: ASPIRIN 81 MG ENTERIC TAB PO SCH (13:17)
[2018-11-25] MEDS: METOPROLOL TART 50 MG TAB PO SCH ×2 (13:18→20:30)
[2018-11-25] MEDS: ALLOPURINOL 300 MG TAB PO SCH (13:18)
[2018-11-25] MEDS: BUMETANIDE 1 MG TAB PO SCH ×2 (13:18→18:08)
[2018-11-25] MEDS: ENOXAPARIN 30 MG/0.3 ML SYR (J1650) SC SCH (13:19)
[2018-11-25] MEDS: SPIRONOLACTONE 25 MG TAB PO SCH (13:20)
[2018-11-25 14:00] VITALS: BP 100/54
[2018-11-25] MEDS: cefTRIAXone SOD 1 GM in D5W MINI-BAG PLUS 50 ML IV SCH (18:08)
[2018-11-25] MEDS: ONDANSETRON 4MG/2ML VIAL (J2405) IV PRN (18:08)
[2018-11-25] MEDS: EZETIMIBE 10 MG TAB (ZETIA) PO SCH (20:29)
[2018-11-25] MEDS: FOLIC ACID 1 MG TAB PO SCH (20:29)
[2018-11-25] MEDS: AZITHROMYCIN 250 MG TAB PO SCH (20:29)
[2018-11-25 22:00] VITALS: BP 121/56
[2018-11-26] MEDS: ONDANSETRON 4MG/2ML VIAL (J2405) IV PRN (01:13)
[2018-11-26] MEDS: ACETAMINOPH W/CODEINE #3 TAB UD PO PRN ×4 (01:21→20:54)
[2018-11-26 06:00] VITALS: BP 111/66
[2018-11-26 06:32] LABS: BASO % 0.2 % (0.0-1.0); EOS % 0.2 % (0.0-3.0); HEMATOCRIT 31.2 % (36.0-47.0); HEMOGLOBIN 9.3 g/dl (12.0-15.5); LYMPH # 0.5 10^3/uL (1.5-4.5); MEAN CORPUSCULAR HEMOGLOBIN 24.7 pg (27.0-33.0); MEAN CORPUSCULAR HGB CONC 29.8 g/dl (32.0-36.5); MEAN CORPUSCULAR VOLUME 82.8 fl (80.0-96.0); MONO # 0.8 10^3/uL (0.0-0.8); MONO % 4.9 % (0.0-5.0); NEUTROPHILS # 15.1 10^3/uL (1.8-7.7); NEUTROPHILS % 91.2 % (36.0-66.0); PLATELET COUNT, AUTOMATED 227 10^3/uL (150-450); RED BLOOD COUNT 3.77 10^6/uL (4.00-5.40); WHITE BLOOD COUNT 16.5 10^3/uL (4.0-10.0)
[2018-11-26] MEDS: VANCOMYCIN HCL 750 MG, VIAL MATE ADAPTER 1 EACH in D5W 250 ML IV SCH (06:39)
[2018-11-26 06:55] LABS: CALCIUM LEVEL 9.1 MG/DL (8.8-10.2); CREATININE FOR GFR 1.18 MG/DL (0.55-1.30); GLOMERULAR FILTRATION RATE 46.2 (>32); POTASSIUM SERUM 3.8 MEQ/L (3.5-5.1)
[2018-11-26 07:58] LABS: C REACTIVE PROTEIN QUANTITATIV 18.4 MG/DL (0.00-0.30)
[2018-11-26] MEDS: ASPIRIN 81 MG ENTERIC TAB PO SCH (08:06)
[2018-11-26] MEDS: ALLOPURINOL 300 MG TAB PO SCH (08:06)
[2018-11-26] MEDS: BUMETANIDE 1 MG TAB PO SCH ×2 (08:06→17:33)
[2018-11-26] MEDS: SPIRONOLACTONE 25 MG TAB PO SCH (08:06)
[2018-11-26] MEDS: SENOKOT S TAB PO SCH ×2 (08:06→20:48)
[2018-11-26] MEDS: METOPROLOL TART 50 MG TAB PO SCH ×2 (08:07→20:49)
[2018-11-26] MEDS: MOM 30ML SUSPENSION UDC PO SCH (08:07)
[2018-11-26] MEDS: ENOXAPARIN 30 MG/0.3 ML SYR (J1650) SC SCH ×2 (08:07→09:00)
[2018-11-26 08:31] LABS: ERYTHROCYTE SEDIMENTATION RATE 92 mm/hr (0-42)
--- NOTE | 2018-11-26 11:22 | IPNPDOC ---
Text Note Date of Service The patient was seen on 11/26/18. NOTE Subjective: Patient seen and examined at bedside. Feeling better today. No acute overnight events reported. Objective: General: NAD, lying comfortably in bed, elderly, frail HEENT: NC/AT, EOMI, hard of hearing Lungs: CTA B/L Heart: +S1S2, irregular Abd: soft, NT, +BS Ext: no edema A/P: 88-year-old female with PMHx of diabetes, chronic kidney disease (CKD) III, gout, chronic systolic and diastolic heart failure ( EF 50% in 2017), atrial fibrillation, not on anticoagulation, hyperlipidemia, Chronic T10 compression fracture, arthritis, osteoporosis, chronic pain or opiates at home , history of unrepaired right hip fracture 5 years ago which has restricted her mobility and now is mostly bedridden can only stand and pivot presents to the emergency room with increased generalized body pain for 1 week and left sided rib cage pain for 1 day Which has not been controlled with her pain medications. In the ED she was found to be in Afib with RVR, with leukocytosis, b/l consolidations on CXR consistent with multifocal pneumonia, and now with staph aureus bacteremia. #bacteremia - BCx +MRSA - sensitivities pending - ID c/s pending - started vancomycin IV - echo pending - WBC slightly worse, inflammatory markers slightly worse #Afib/RVR - metroprolol tartrate doubled to 50 BID - ASA for anti-coagulation as per home regimen #CAP - not clear if related to chronic fibrosis - leukocytosis improving, but no fever or cough - continue with ceftriaxone and azithromycin for now - follow BCX and SCx #Generalized pain with osteoporosis and osteoarthritis - Chronic T 10 compression fracture, Chest pain - will start on percocet - continue meloxicam. #CKD stage 3 - stable #Chronic Systolic and Diastolic chf - euvolemic - continue Bumex and spironolactone #Gout - continue allopurinol. #Hyperlipidemia - continue Zetia. #Under weight with severe Protein calorie malnutrition. - severe with BMI of 18, bi-temporal wasting #DVT prophylaxis #immobility - history of unrepaired right hip fracture 5 years ago which has restricted her mobility - PT pending Dispo: pending ID c/s, echo, IV abx VS,Fishbone, I+O VS, Fishbone, I+O Laboratory Tests 11/26/18 05:34 Red Blood Count 3.77 L, Mean Corpuscular Volume 82.8, Mean Corpuscular Hemoglobin 24.7 L, Mean Corpuscular Hemoglobin Concent 29.8 L, Red Cell Distribution Width 18.6 H, Neutrophils (%) (Auto) 91.2 H, Lymphocytes (%) (Auto) 3.0 L, Monocytes (%) (Auto) 4.9, Eosinophils (%) (Auto) 0.2, Basophils (%) (Auto) 0.2, Neutrophils # (Auto) 15.1 H, Lymphocytes # (Auto) 0.5 L, Monocytes # (Auto) 0.8, Eosinophils # (Auto) 0.0, Basophils # (Auto) 0.0, Calcium Level 9.1 Vital Signs Date Time Temp Pulse Resp B/P (MAP) Pulse Ox O2 Delivery O2 Flow Rate FiO2 11/26/18 10:25 18 11/26/18 08:07 115 112/58 11/26/18 06:00 97.5 94 11/23/18 23:01 Room Air I&O- Last 24 Hours up to 6 AM 11/26/18 06:00 Intake Total 470 ml Balance 470 ml RANULFO GILES MD November 26, 2018 11:22
[2018-11-26 14:00] VITALS: BP 108/68
--- NOTE | 2018-11-26 16:10 | ECHO ---
DATE OF PROCEDURE: 11/25/2018 REFERRING PHYSICIAN: Everardo Walters MD INDICATION: sepsis. HEIGHT: 157 cm WEIGHT: 50 kg 2D MEASUREMENTS: LVOT: 2.0 cm Aortic root: 2.6 cm Left atrium: 5.1 cm Ventricular septum: 0.85 cm Posterior wall: 0.87 cm Left ventricle diastole: 4.9 cm Inferior vena cava: 2.7 cm with marked reduction of respiratory variation. DOPPLER MEASUREMENTS: Very mild aortic regurgitation. No aortic stenosis. Aortic valve velocity: 189 cm/s LVOT velocity: 68.6 cm/s Moderate mitral regurgitation. No mitral stenosis. Mitral E velocity: 113 cm/s (pulse wave) Severe tricuspid regurgitation. Estimated right ventricle systolic pressure at least 54 mmHg assuming a right atrial pressure of at least 20 mmHg. DESCRIPTION: Rhythm was atrial fibrillation with controlled ventricular response. Image quality was fair. No pericardial effusion. This was a 2D, M-mode, color flow Doppler and pulse wave Doppler examination that included mitral annular tissue Doppler. CONCLUSIONS: 1. No vegetations identified. 2. Moderate mitral annular calcification and a thickened calcified septal contact lesion involving the distal tip of the anterior mitral leaflet. No mitral valve prolapse or broken chordae or flail segments. Moderate mitral regurgitation. No mitral stenosis. 3. Suggestive of at least moderate elevation of estimated right ventricle systolic pressure (at least 54 mmHg). Severe tricuspid regurgitation. Mild right ventricle dilatation with normal RV systolic function. Severe right atrial dilatation. 4. Severe left atrial dilatation. 5. Inferior vena cava dilatation with marked reduction of respiratory variation. Suggestive of elevated central venous pressure of at least 20 mmHg. 6. Normal left ventricle internal dimensions and wall thickening. Normal regional LV wall motion and wall thickening. Normal LV systolic function. LVEF 60% by visual estimate. 7. Moderate aortic valve sclerosis of a three-cuspid aortic valve. Very mild aortic regurgitation. No aortic stenosis.
[2018-11-26] MEDS: cefTRIAXone SOD 1 GM in D5W MINI-BAG PLUS 50 ML IV SCH (17:33)
--- NOTE | 2018-11-26 19:34 | CR ---
DATE OF CONSULTATION: 11/26/2018 REQUESTING PHYSICIAN: Hospitalist Group REASON FOR CONSULTATION: Workup of Methicillin-resistant Staphylococcus aureus (MRSA) bacteremia and antibiotic management. HISTORY OF PRESENT ILLNESS: Mrs. Hernandez is a very pleasant 88-year-old female who was admitted on November 23 with complaint of severe left-sided chest pain with weakness. The patient describes the pain as being very sharp, located left lateral and anterior chest wall that was not associated with any fever or chills that was not worse with deep breath or change in position. It came on suddenly. She denied having any cough. The patient was noted to have a white count of 18,000. She had a CT angiogram done in the emergency room which showed bilateral consolidation consistent with multifocal pneumonia, moderate areas of consolidation of the lingula and right middle lobe. She also had a compression fracture of T10. Chest x-ray showed chronic stable appearing changes with no obvious acute process. The patient was started on IV Rocephin and Zithromax initially and vancomycin was added on November 26. Repeat cultures were obtained on 11/25/2009 and were negative. PAST MEDICAL HISTORY: Significant for chronic venous stasis changes with multiple small ulceration of her lower extremities bilaterally that are not infected. History of gout, hyperlipidemia, atrial fibrillation, not on anticoagulation, chronic systolic and diastolic heart failure, chronic kidney disease, osteoporosis, chronic pain on opiates, history of unrepaired right hip fracture restricting her mobility. MEDICATIONS - Allopurinol 300 mg daily - aspirin 81 mg daily - bumetanide 1 mg twice a day - clobetasol on lower extremities. - Zetia 10 mg daily - folic acid 1 mg daily - meloxicam 7.5 mg twice a day - metoprolol 50 mg daily - potassium 10 mEq twice a day - spironolactone 25 mg daily - Rocephin 1 gram IV every 24 hours - Zithromax 500 mg by mouth at bedtime - vancomycin 750 mg IV every 24 hours. ALLERGIES: No known drug allergies. LABORATORY DATA White count was 18.1 on admission increased to 24.4, currently 16.5, hemoglobin 9.3, hematocrit 31.2, platelets 227, 91% neutrophils, 3% lymphocytes, 5% monocytes. ESR 92. Sodium 137, potassium 3.8, chloride 97, bicarb 30, BUN 23, creatinine 1.18, glucose 163, calcium 9.1, CRP 18.4. Blood cultures two sets drawn on 11/23 were positive for MRSA. Respiratory panel was negative. Repeat cultures done on 11/25 were no growth after 24 hours. PHYSICAL EXAMINATION: Frail elderly female in no acute distress. Pleasant, alert and oriented times three. She has been afebrile throughout this admission, T max was 99.2 on admission, currently temperature 97.5, pulse 115, respirations 18, blood pressure 112/58. Heart: Normal S1, S2 irregularly irregular with a systolic ejection murmur 2/6. Lungs: Diminished breath sounds at both bases. Chest wall nontender. Abdomen: Soft, nontender. No hepatosplenomegaly. Extremities: No clubbing, cyanosis or edema. No calf tenderness. Multiple small superficial venous ulcers, mostly linear along both legs. She has at least four on each legs, but none of them have purulent drainage. They are wrapped with Coban dressings and optifoams. Lower extremities: No clubbing, cyanosis, no rashes. Oropharynx is clear with no lesions. Musculoskeletal examination: Severe kyphoscoliosis, no spinal tenderness. No hip tenderness, knee tenderness. She does not have any joint replacement. IMPRESSION This is an 88-year-old female who was admitted with acute onset of severe left-sided chest pain associated with multifocal pneumonia on CT chest. The patient has been afebrile, but has an elevated white count, CRP and sed rate. There is no other evidence of metastatic foci of MRSA bacteremia. She does not have any foreign bodies. She does not have any joint replacement or pacemaker or valve replacement. Interestingly, is her bacteremia resolved within 48 hours even not on appropriate antibiotics. She received Zithromax and Rocephin for 48 hours before vancomycin was added. She has uncomplicated staph aureus bacteremia and she does not have any foreign body. She has been afebrile and her blood cultures were negative at 48 hours. PLAN: Obtain transthoracic echocardiogram. Continue treatment of MRSA bacteremia for 14 days intravenously from negative cultures, which would be 11/25 until December 09 if echocardiogram is negative. Continue to monitor CBC, CRP, sed rate. Continue to monitor for metastatic complications. Discontinue IV Rocephin and Zithromax.
[2018-11-26] MEDS: FOLIC ACID 1 MG TAB PO SCH (20:48)
[2018-11-26] MEDS: EZETIMIBE 10 MG TAB (ZETIA) PO SCH (20:49)
[2018-11-26] MEDS ORDERED: METOPROLOL 5 MG/5 ML VIAL IV STA (21:46)
[2018-11-26 22:00] VITALS: BP 116/66
[2018-11-27] MEDS: ACETAMINOPH W/CODEINE #3 TAB UD PO PRN ×3 (05:18→22:06)
[2018-11-27 06:00] VITALS: BP 134/61
[2018-11-27 06:31] LABS: BASO % 0.2 % (0.0-1.0); EOS # 0.1 10^3/uL (0.0-0.50); EOS % 0.7 % (0.0-3.0); HEMATOCRIT 31.1 % (36.0-47.0); HEMOGLOBIN 9.4 g/dl (12.0-15.5); LYMPH # 0.5 10^3/uL (1.5-4.5); LYMPH % 4.2 % (24.0-44.0); MEAN CORPUSCULAR HEMOGLOBIN 25.4 pg (27.0-33.0); MEAN CORPUSCULAR HGB CONC 30.2 g/dl (32.0-36.5); MEAN CORPUSCULAR VOLUME 84.1 fl (80.0-96.0); MONO # 0.9 10^3/uL (0.0-0.8); MONO % 6.6 % (0.0-5.0); NEUTROPHILS # 11.4 10^3/uL (1.8-7.7); NEUTROPHILS % 87.7 % (36.0-66.0); PLATELET COUNT, AUTOMATED 237 10^3/uL (150-450)
[2018-11-27 06:48] LABS: CALCIUM LEVEL 8.8 MG/DL (8.8-10.2); CREATININE FOR GFR 1.06 MG/DL (0.55-1.30); GLOMERULAR FILTRATION RATE 52.3 (>32); POTASSIUM SERUM 3.7 MEQ/L (3.5-5.1); VANCOMYCIN LEVEL TROUGH 14.7 UG/ML (10.0-20.0)
[2018-11-27] MEDS: VANCOMYCIN HCL 750 MG, VIAL MATE ADAPTER 1 EACH in D5W 250 ML IV SCH (06:56)
--- NOTE | 2018-11-27 07:17 | PHACANCOPD ---
PHARMACY VANCOMYCIN DOSING Pt Demographics Demographics Patient Age:88 , Weight:50.100 , Gender: female Adjusted Body Weight Date: 11/27/18, Adjusted Body Weight: Kg Vancomycin Vancomycin Target Ranges: 15-20 mcg/ml Vancomycin Load Y/N: No Load Dose Date Time Vancomycin Load Dose: Date: Time: Vancomycin Dose Date: 11/27/18. Current Vancomycin Dose: [750mg q24] Intermittent Dosing?: No Labs Labs Laboratory Tests 11/27/18 05:59 Red Blood Count 3.70 L, Mean Corpuscular Volume 84.1, Mean Corpuscular Hemoglobin 25.4 L, Mean Corpuscular Hemoglobin Concent 30.2 L, Red Cell Distribution Width 18.2 H, Neutrophils (%) (Auto) 87.7 H, Lymphocytes (%) (Auto) 4.2 L, Monocytes (%) (Auto) 6.6 H, Eosinophils (%) (Auto) 0.7, Basophils (%) (Auto) 0.2, Neutrophils # (Auto) 11.4 H, Lymphocytes # (Auto) 0.5 L, Monocytes # (Auto) 0.9 H, Eosinophils # (Auto) 0.1, Basophils # (Auto) 0.0, Calcium Level 8.8 Micro Microbiology 11/25/18 Blood Culture - Preliminary, Resulted No growth after 24 hours . All specim... 11/25/18 Blood Culture - Preliminary, Resulted No growth after 24 hours . All specim... 11/23/18 Blood Culture - Final, Complete Staph.aureus Methicillin Resis 11/23/18 Blood Culture - Final, Complete Staph.aureus Methicillin Resis 11/23/18 Respiratory Virus Panel (PCR) ([facility]) - Final, Complete 11/26/18 Urine Culture, Received Pending Creatinine Clearance Date:11/27/18. Creatinine Clearance: [30].calculated Assessment and Plan Maintaining Current Dose?: Yes Reason for dose change: No Dose Change Pharmacist Note Pharmacist Note Date: 11/27/18. Pharmacist note:Vancomycin trough drawn this morning@5:59 reported as 14.7,SCR=1.06-Will maintain current Vancomycin regimen of 750mg iv [id number] continue to follow [facility] November 27, 2018 07:17
[2018-11-27] MEDS: METOPROLOL TART 50 MG TAB PO SCH ×3 (08:05→22:00)
[2018-11-27] MEDS: SPIRONOLACTONE 25 MG TAB PO SCH (08:05)
[2018-11-27] MEDS: ASPIRIN 81 MG ENTERIC TAB PO SCH (08:05)
[2018-11-27] MEDS: SENOKOT S TAB PO SCH ×2 (08:05→22:03)
[2018-11-27] MEDS: ALLOPURINOL 300 MG TAB PO SCH (08:05)
[2018-11-27] MEDS: ENOXAPARIN 30 MG/0.3 ML SYR (J1650) SC SCH (08:06)
[2018-11-27] MEDS: BUMETANIDE 1 MG TAB PO SCH ×2 (08:06→18:00)
[2018-11-27] MEDS: MOM 30ML SUSPENSION UDC PO SCH (08:06)
[2018-11-27 08:16] LABS: C REACTIVE PROTEIN QUANTITATIV 16.4 MG/DL (0.00-0.30)
--- NOTE | 2018-11-27 11:10 | IPNPDOC ---
Text Note Date of Service The patient was seen on 11/27/18. NOTE Subjective: Patient seen and examined at bedside. Feeling better today. No acute overnight events reported. Objective: General: NAD, lying comfortably in bed, elderly, frail HEENT: NC/AT, EOMI, hard of hearing Lungs: CTA B/L Heart: +S1S2, irregular Abd: soft, NT, +BS Ext: no edema A/P: 88-year-old female with PMHx of diabetes, chronic kidney disease (CKD) III, gout, chronic systolic and diastolic heart failure ( EF 50% in 2017), atrial fibrillation, not on anticoagulation, hyperlipidemia, Chronic T10 compression fracture, arthritis, osteoporosis, chronic pain or opiates at home , history of unrepaired right hip fracture 5 years ago which has restricted her mobility and now is mostly bedridden can only stand and pivot presents to the emergency room with increased generalized body pain for 1 week and left sided rib cage pain for 1 day Which has not been controlled with her pain medications. In the ED she was found to be in Afib with RVR, with leukocytosis, b/l consolidations on CXR consistent with multifocal pneumonia, and now with staph aureus bacteremia. #bacteremia - BCx +MRSA - repeat cultures NTD - ID c/s appreciated - continue vancomycin IV - echo no vegetations #Afib/RVR - metroprolol tartrate doubled to 50 BID - ASA for anti-coagulation as per home regimen #CAP - not clear if related to chronic fibrosis - leukocytosis improving, no fever or cough #Generalized pain with osteoporosis and osteoarthritis - Chronic T 10 compression fracture, Chest pain - will start on percocet - continue meloxicam. #CKD stage 3 - stable #Chronic Systolic and Diastolic chf - euvolemic - continue Bumex and spironolactone #Gout - continue allopurinol. #Hyperlipidemia - continue Zetia. #Under weight with severe Protein calorie malnutrition. - severe with BMI of 18, bi-temporal wasting #DVT prophylaxis #immobility - history of unrepaired right hip fracture 5 years ago which has restricted her mobility - continue PT Dispo: continue IV abx, potential end date 12/09 pending confirmed negative repeat blood cultures VS,Fishbone, I+O VS, Fishbone, I+O Laboratory Tests 11/27/18 05:59 Red Blood Count 3.70 L, Mean Corpuscular Volume 84.1, Mean Corpuscular Hemoglobin 25.4 L, Mean Corpuscular Hemoglobin Concent 30.2 L, Red Cell Distribution Width 18.2 H, Neutrophils (%) (Auto) 87.7 H, Lymphocytes (%) (Auto) 4.2 L, Monocytes (%) (Auto) 6.6 H, Eosinophils (%) (Auto) 0.7, Basophils (%) (Auto) 0.2, Neutrophils # (Auto) 11.4 H, Lymphocytes # (Auto) 0.5 L, Monocytes # (Auto) 0.9 H, Eosinophils # (Auto) 0.1, Basophils # (Auto) 0.0, Calcium Level 8.8 Vital Signs Date Time Temp Pulse Resp B/P (MAP) Pulse Ox O2 Delivery O2 Flow Rate FiO2 11/27/18 08:05 112 122/64 11/27/18 06:00 98.8 18 92 11/23/18 23:01 Room Air I&O- Last 24 Hours up to 6 AM 11/27/18 06:00 Intake Total 825 ml Output Total 50 ml Balance 775 ml RANULFO GILES MD November 27, 2018 11:10
[2018-11-27 14:00] VITALS: BP 94/52
[2018-11-27 14:31] LABS: ERYTHROCYTE SEDIMENTATION RATE 72 mm/hr (0-42)
--- NOTE | 2018-11-27 16:02 | IPN ---
DATE: 11/27/2018 Anabelle continues complaining of chest pressure, but that has improved. She has a mild cough but is not able to bring up any phlegm. She has mild shortness of breath. No nausea, vomiting or diarrhea except in the morning when she took her pills. She has chronic lower extremity ulcers. 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 LABORATORY DATA White count is 13, down from 24.4, hemoglobin 9.4, hematocrit 31.1, platelets 237, 87% neutrophils, 4% lymphocytes, 6% monocytes. ESR is pending, was 92 yesterday. Sodium 136, potassium 3.7, chloride 96, bicarb 35, BUN 22, creatinine 1.06, glucose 140, calcium 8.8, CRP 16.4, blood cultures on 11/23 two sets were positive for MRSA. On 11/25 two sets were negative. In spite of being on antibiotics that would not cover MRSA. Echocardiogram done on 11/26 shows moderate mitral annular calcification, thickened calcified septal lesions. No mitral valve prolapse or broken chordae, moderate mitral regurgitation. No mitral stenosis. Moderate elevation of right ventricular pressure, severe tricuspid regurgitation, severe left atrial dilatation and inferior vena cava dilatation with CVP at least 20 mm. Normal ejection fraction and moderate aortic valve sclerosis. IMPRESSION 1. MRSA pneumonia and bacteremia. The patient had transient bacteremia, negative cultures on 11/25 even before antibiotics were started. She does not have any foreign body. No prosthetic valve, mitral valve. No pacemaker. She was afebrile and had negative cultures in less than 48 hours even without antibiotics so that makes it a definition of uncomplicated bacteremia. Echocardiogram does not show evidence of endocarditis, although this was a transthoracic echocardiogram so the sensitivity is not the best compared to transesophageal echocardiogram (PRATIMA), but the fact that she has uncomplicated staph aureus bacteremia based on the above criteria, would not recommend PRATIMA at this time. 2. Venous ulcers, not infected. Continue with Colflex dressing. PLAN Continue IV vancomycin. The patient will be treated with a total of 2 weeks of IV antibiotics from negative cultures 11/25. Keep vancomycin trough between 15 and 20. Current trough is 14.7. Monitor CBC, CRP every 2-3 days.
--- NOTE | 2018-11-27 16:37 | ECGEPIP ---
[facility] Test Date: 2018-11-27 Pat Name: KATT PENN Department: Room: [place] [address] Gender: Female Scientologist: ANALI : [id number] Requested By: RANULFO Scott Order Number: [id number] Reading MD: Finn Aceves Measurements Intervals [place] Rate: 127 P: NH: -1 QRS: QRSD: 90 T: QT: 161 QTc: 235 Interpretive Statements ATRIAL FIBRILLATION WITH RAPID VENTRICULAR RESPONSE MARKED LEFT AXIS DEVIATION LOW QRS VOLTAGE IN EXTREMITY LEADS Nonspecific ST-T abnormalities No significant change compared with 11/23/2018 Electronically Signed on 11-27-2018 16:37:40 EDT by Finn Aceves
[2018-11-27] MEDS: EZETIMIBE 10 MG TAB (ZETIA) PO SCH (22:02)
[2018-11-27] MEDS: FOLIC ACID 1 MG TAB PO SCH (22:02)
[2018-11-28] MEDS ORDERED: METOPROLOL TART 50 MG TAB PO ONE (04:15)
[2018-11-28 05:10] LABS: BASO % 0.2 % (0.0-1.0); EOS # 0.1 10^3/uL (0.0-0.50); EOS % 0.8 % (0.0-3.0); HEMATOCRIT 30.9 % (36.0-47.0); HEMOGLOBIN 9.2 g/dl (12.0-15.5); LYMPH # 0.7 10^3/uL (1.5-4.5); LYMPH % 6.2 % (24.0-44.0); MEAN CORPUSCULAR HEMOGLOBIN 25.2 pg (27.0-33.0); MEAN CORPUSCULAR HGB CONC 29.8 g/dl (32.0-36.5); MEAN CORPUSCULAR VOLUME 84.7 fl (80.0-96.0); MONO # 0.7 10^3/uL (0.0-0.8); MONO % 6.6 % (0.0-5.0); NEUTROPHILS # 9.1 10^3/uL (1.8-7.7); NEUTROPHILS % 85.5 % (36.0-66.0); PLATELET COUNT, AUTOMATED 224 10^3/uL (150-450); RED BLOOD COUNT 3.65 10^6/uL (4.00-5.40); WHITE BLOOD COUNT 10.6 10^3/uL (4.0-10.0)
[2018-11-28 05:31] LABS: CALCIUM LEVEL 8.7 MG/DL (8.8-10.2); CREATININE FOR GFR 1.07 MG/DL (0.55-1.30); GLOMERULAR FILTRATION RATE 51.8 (>32); POTASSIUM SERUM 3.5 MEQ/L (3.5-5.1)
[2018-11-28 05:38] LABS: ERYTHROCYTE SEDIMENTATION RATE 74 mm/hr (0-42)
[2018-11-28 06:00] VITALS: BP 107/67
[2018-11-28] MEDS: METOPROLOL TART 50 MG TAB PO SCH ×2 (06:00→13:27)
[2018-11-28] MEDS: VANCOMYCIN HCL 750 MG, VIAL MATE ADAPTER 1 EACH in D5W 250 ML IV SCH (07:04)
[2018-11-28 08:20] VITALS: BP 110/50
[2018-11-28] MEDS: BUMETANIDE 1 MG TAB PO SCH ×2 (10:02→18:13)
[2018-11-28] MEDS: ASPIRIN 81 MG ENTERIC TAB PO SCH (10:03)
[2018-11-28] MEDS: ALLOPURINOL 300 MG TAB PO SCH (10:03)
[2018-11-28] MEDS: SENOKOT S TAB PO SCH ×2 (10:03→21:29)
[2018-11-28] MEDS: ENOXAPARIN 30 MG/0.3 ML SYR (J1650) SC SCH (10:03)
[2018-11-28] MEDS: MOM 30ML SUSPENSION UDC PO SCH (10:04)
[2018-11-28] MEDS: SPIRONOLACTONE 25 MG TAB PO SCH (10:04)
[2018-11-28] MEDS: ACETAMINOPH W/CODEINE #3 TAB UD PO PRN ×2 (10:42→18:14)
--- NOTE | 2018-11-28 11:41 | IPNPDOC ---
Text Note Date of Service The patient was seen on 11/28/18. NOTE Subjective: Patient seen and examined at bedside. Feeling better today. No acute overnight events reported. Objective: General: NAD, lying comfortably in bed, elderly, frail HEENT: NC/AT, EOMI, hard of hearing Lungs: CTA B/L Heart: +S1S2, irregular Abd: soft, NT, +BS Ext: no edema A/P: 88-year-old female with PMHx of diabetes, chronic kidney disease (CKD) III, gout, chronic systolic and diastolic heart failure ( EF 50% in 2017), atrial fibrillation, not on anticoagulation, hyperlipidemia, Chronic T10 compression fracture, arthritis, osteoporosis, chronic pain or opiates at home , history of unrepaired right hip fracture 5 years ago which has restricted her mobility and now is mostly bedridden can only stand and pivot presents to the emergency room with increased generalized body pain for 1 week and left sided rib cage pain for 1 day Which has not been controlled with her pain medications. In the ED she was found to be in Afib with RVR, with leukocytosis, b/l consolidations on CXR consistent with multifocal pneumonia, and now with staph aureus bacteremia. #bacteremia - BCx +MRSA - repeat cultures NTD - ID c/s appreciated - continue vancomycin IV - echo no vegetations #Afib/RVR - metroprolol tartrate doubled to 50 BID - ASA for anti-coagulation as per home regimen #CAP - complicated with chronic fibrosis - leukocytosis improving, no fever or cough #Generalized pain with osteoporosis and osteoarthritis - Chronic T 10 compression fracture, Chest pain - continue tylenol 3 #CKD stage 3 - stable #Chronic Systolic and Diastolic chf - euvolemic - continue Bumex and spironolactone #Gout - continue allopurinol. #Hyperlipidemia - continue Zetia. #Under weight with severe Protein calorie malnutrition. - severe with BMI of 18, bi-temporal wasting #DVT prophylaxis #immobility - history of unrepaired right hip fracture 5 years ago which has restricted her mobility - continue PT Dispo: continue IV abx, potential end date 12/09 pending confirmed negative repeat blood cultures VS,Fishbone, I+O VS, Fishbone, I+O Laboratory Tests 11/28/18 04:58 Red Blood Count 3.65 L, Mean Corpuscular Volume 84.7, Mean Corpuscular Hemoglobin 25.2 L, Mean Corpuscular Hemoglobin Concent 29.8 L, Red Cell Distribution Width 18.3 H, Neutrophils (%) (Auto) 85.5 H, Lymphocytes (%) (Auto) 6.2 L, Monocytes (%) (Auto) 6.6 H, Eosinophils (%) (Auto) 0.8, Basophils (%) (Auto) 0.2, Neutrophils # (Auto) 9.1 H, Lymphocytes # (Auto) 0.7 L, Monocytes # (Auto) 0.7, Eosinophils # (Auto) 0.1, Basophils # (Auto) 0.0, Calcium Level 8.7 L Vital Signs Date Time Temp Pulse Resp B/P (MAP) Pulse Ox O2 Delivery O2 Flow Rate FiO2 11/28/18 10:42 16 11/28/18 08:20 56 110/50 (70) 11/28/18 06:00 98.5 92 11/23/18 23:01 Room Air I&O- Last 24 Hours up to 6 AM 11/28/18 06:00 Intake Total 980 ml Balance 980 ml RANULFO GILES MD Nov 28, 2018 11:41
[2018-11-28] MEDS ORDERED: ACETAMINOPH W/CODEINE #3 TAB UD PO PRN (11:45)
[2018-11-28 14:00] VITALS: BP 119/68
[2018-11-28] MEDS: EZETIMIBE 10 MG TAB (ZETIA) PO SCH (21:29)
[2018-11-28] MEDS: FOLIC ACID 1 MG TAB PO SCH (21:29)
[2018-11-28] MEDS: METOPROLOL TART 25 MG TABLET PO SCH (21:30)
[2018-11-29] MEDS: METOPROLOL TART 25 MG TABLET PO SCH ×6 (02:00→21:35)
[2018-11-29] MEDS: ACETAMINOPH W/CODEINE #3 TAB UD PO PRN ×3 (04:30→21:34)
[2018-11-29 06:00] VITALS: BP 118/60
[2018-11-29 06:05] LABS: BASO % 0.3 % (0.0-1.0); EOS # 0.2 10^3/uL (0.0-0.50); EOS % 1.9 % (0.0-3.0); HEMATOCRIT 31.9 % (36.0-47.0); HEMOGLOBIN 9.5 g/dl (12.0-15.5); LYMPH # 0.9 10^3/uL (1.5-4.5); LYMPH % 8.8 % (24.0-44.0); MEAN CORPUSCULAR HEMOGLOBIN 24.6 pg (27.0-33.0); MEAN CORPUSCULAR HGB CONC 29.8 g/dl (32.0-36.5); MEAN CORPUSCULAR VOLUME 82.6 fl (80.0-96.0); MONO # 0.6 10^3/uL (0.0-0.8); MONO % 6.5 % (0.0-5.0); NEUTROPHILS # 8.1 10^3/uL (1.8-7.7); PLATELET COUNT, AUTOMATED 274 10^3/uL (150-450); RED BLOOD COUNT 3.86 10^6/uL (4.00-5.40); WHITE BLOOD COUNT 9.9 10^3/uL (4.0-10.0)
[2018-11-29 06:26] LABS: BLOOD UREA NITROGEN 23 MG/DL (7-18); CALCIUM LEVEL 9.2 MG/DL (8.8-10.2); CARBON DIOXIDE LEVEL 35 MEQ/L (21-32); CHLORIDE LEVEL 95 MEQ/L (98-107); CREATININE FOR GFR 0.92 MG/DL (0.55-1.30); GLOMERULAR FILTRATION RATE > 60.0 (>32); GLUCOSE, FASTING 153 MG/DL (70-100); POTASSIUM SERUM 4.2 MEQ/L (3.5-5.1); SODIUM LEVEL 136 MEQ/L (136-145)
[2018-11-29] MEDS: VANCOMYCIN HCL 750 MG, VIAL MATE ADAPTER 1 EACH in D5W 250 ML IV SCH (06:46)
[2018-11-29 06:59] LABS: ERYTHROCYTE SEDIMENTATION RATE 70 mm/hr (0-42)
[2018-11-29] MEDS: SENOKOT S TAB PO SCH ×2 (08:14→21:34)
[2018-11-29] MEDS: ALLOPURINOL 300 MG TAB PO SCH (08:15)
[2018-11-29] MEDS: ASPIRIN 81 MG ENTERIC TAB PO SCH (08:15)
[2018-11-29] MEDS: BUMETANIDE 1 MG TAB PO SCH ×2 (08:15→17:14)
[2018-11-29] MEDS: ENOXAPARIN 30 MG/0.3 ML SYR (J1650) SC SCH (08:15)
[2018-11-29] MEDS: MOM 30ML SUSPENSION UDC PO SCH (08:15)
[2018-11-29] MEDS: SPIRONOLACTONE 25 MG TAB PO SCH (08:15)
--- NOTE | 2018-11-29 10:37 | IPNPDOC ---
Text Note Date of Service The patient was seen on 11/29/18. NOTE Subjective: Patient seen and examined at bedside. No acute overnight events reported. Patient has no new medical complaints. She denies dysuria and polyuria. Objective: General: NAD, lying comfortably in bed, elderly, frail HEENT: NC/AT, EOMI, hard of hearing Lungs: CTA B/L Heart: +S1S2, irregular Abd: soft, NT, +BS Ext: no edema A/P: 88-year-old female with PMHx of diabetes, chronic kidney disease (CKD) III, gout, chronic systolic and diastolic heart failure ( EF 50% in 2017), atrial fibrillation, not on anticoagulation, hyperlipidemia, Chronic T10 compression fracture, arthritis, osteoporosis, chronic pain or opiates at home , history of unrepaired right hip fracture 5 years ago which has restricted her mobility and now is mostly bedridden can only stand and pivot presents to the emergency room with increased generalized body pain for 1 week and left sided rib cage pain for 1 day Which has not been controlled with her pain medications. In the ED she was found to be in Afib with RVR, with leukocytosis, b/l consolidations on CXR consistent with multifocal pneumonia, and now with staph aureus bacteremia. #bacteremia - BCx +MRSA - repeat cultures NTD - ID c/s appreciated - continue vancomycin IV - echo no vegetations #positive urinalysis - denies any urinary symptoms - UCx +VRE, 25,000 CFU #Afib/RVR - metroprolol tartrate dosing frequency increased - ASA for anti-coagulation as per home regimen #CAP - complicated with chronic fibrosis - leukocytosis improving, no fever or cough #Generalized pain with osteoporosis and osteoarthritis - Chronic T 10 compression fracture, Chest pain - continue tylenol 3 #CKD stage 3 - stable #Chronic Systolic and Diastolic chf - euvolemic - continue Bumex and spironolactone #Gout - continue allopurinol. #Hyperlipidemia - continue Zetia. #Under weight with severe protein calorie malnutrition. - severe with BMI of 18, bi-temporal wasting #DVT prophylaxis #immobility - history of unrepaired right hip fracture 5 years ago which has restricted her mobility - continue PT Dispo: continue IV abx, potential end date 12/09 pending confirmed negative repeat blood cultures VS,Fishbone, I+O VS, Fishbone, I+O Laboratory Tests 6/2/19 05:31 Red Blood Count 3.86 L, Mean Corpuscular Volume 82.6, Mean Corpuscular Hemoglobin 24.6 L, Mean Corpuscular Hemoglobin Concent 29.8 L, Red Cell Distribution Width 18.3 H, Neutrophils (%) (Auto) 82.0 H, Lymphocytes (%) (Auto) 8.8 L, Monocytes (%) (Auto) 6.5 H, Eosinophils (%) (Auto) 1.9, Basophils (%) (Auto) 0.3, Neutrophils # (Auto) 8.1 H, Lymphocytes # (Auto) 0.9 L, Monocytes # (Auto) 0.6, Eosinophils # (Auto) 0.2, Basophils # (Auto) 0.0, Calcium Level 9.2 Vital Signs Date Time Temp Pulse Resp B/P (MAP) Pulse Ox O2 Delivery O2 Flow Rate FiO2 11/29/18 10:00 78 107/65 11/29/18 06:00 97.1 17 90 11/23/18 23:01 Room Air I&O- Last 24 Hours up to 6 AM 11/29/18 06:00 Intake Total 988 ml Output Total 0 ml Balance 988 ml RANULFO GILES MD Nov 29, 2018 10:37
[2018-11-29 14:00] VITALS: BP 117/66
[2018-11-29] MEDS ORDERED: DIGOXIN INJ 0.5 MG/2 ML AMP (J1160) IV ONE ×2 (16:00→21:00)
[2018-11-29] MEDS: FOLIC ACID 1 MG TAB PO SCH (21:34)
[2018-11-29] MEDS: EZETIMIBE 10 MG TAB (ZETIA) PO SCH (21:34)
[2018-11-29 22:00] VITALS: BP 102/60
[2018-11-30] MEDS: METOPROLOL TART 25 MG TABLET PO SCH ×6 (02:00→20:47)
[2018-11-30] MEDS ORDERED: DIGOXIN INJ 0.5 MG/2 ML AMP (J1160) IV ONE (03:00)
[2018-11-30] MEDS: ACETAMINOPH W/CODEINE #3 TAB UD PO PRN ×2 (04:24→10:45)
[2018-11-30 06:00] VITALS: BP 101/59
[2018-11-30 06:28] LABS: BASO # 0.1 10^3/uL (0.0-0.2); BASO % 0.5 % (0.0-1.0); EOS # 0.3 10^3/uL (0.0-0.50); HEMATOCRIT 35.1 % (36.0-47.0); HEMOGLOBIN 10.3 g/dl (12.0-15.5); LYMPH # 0.9 10^3/uL (1.5-4.5); MEAN CORPUSCULAR HEMOGLOBIN 24.9 pg (27.0-33.0); MEAN CORPUSCULAR HGB CONC 29.3 g/dl (32.0-36.5); MEAN CORPUSCULAR VOLUME 84.8 fl (80.0-96.0); MONO # 0.7 10^3/uL (0.0-0.8); MONO % 7.6 % (0.0-5.0); NEUTROPHILS # 7.2 10^3/uL (1.8-7.7); NEUTROPHILS % 78.1 % (36.0-66.0); PLATELET COUNT, AUTOMATED 285 10^3/uL (150-450); RED BLOOD COUNT 4.14 10^6/uL (4.00-5.40); WHITE BLOOD COUNT 9.2 10^3/uL (4.0-10.0)
[2018-11-30 06:46] LABS: CALCIUM LEVEL 9.4 MG/DL (8.8-10.2); CREATININE FOR GFR 1.03 MG/DL (0.55-1.30); GLOMERULAR FILTRATION RATE 54.1 (>32); POTASSIUM SERUM 4.4 MEQ/L (3.5-5.1); VANCOMYCIN LEVEL TROUGH 19.8 UG/ML (10.0-20.0)
[2018-11-30] MEDS: BUMETANIDE 1 MG TAB PO SCH ×2 (07:43→18:02)
[2018-11-30] MEDS: VANCOMYCIN HCL 500 MG in D5W MINI-BAG PLUS 100 ML IV SCH (07:43)
[2018-11-30] MEDS: SPIRONOLACTONE 25 MG TAB PO SCH (08:52)
[2018-11-30] MEDS: MOM 30ML SUSPENSION UDC PO SCH (08:52)
[2018-11-30] MEDS: SENOKOT S TAB PO SCH ×2 (08:52→20:15)
[2018-11-30] MEDS: ALLOPURINOL 300 MG TAB PO SCH (08:52)
[2018-11-30] MEDS: ASPIRIN 81 MG ENTERIC TAB PO SCH (08:53)
[2018-11-30] MEDS: ENOXAPARIN 30 MG/0.3 ML SYR (J1650) SC SCH (08:53)
--- NOTE | 2018-11-30 10:41 | IPNPDOC ---
Text Note Date of Service The patient was seen on 11/30/18. NOTE Subjective: Patient seen and examined at bedside. No acute overnight events reported. Patient has no new medical complaints. She denies dysuria and polyuria. Objective: General: NAD, lying comfortably in bed, elderly, frail HEENT: NC/AT, EOMI, hard of hearing Lungs: CTA B/L Heart: +S1S2, irregular Abd: soft, NT, +BS Ext: no edema A/P: 88-year-old female with PMHx of diabetes, chronic kidney disease (CKD) III, gout, chronic systolic and diastolic heart failure ( EF 50% in 2017), atrial fibrillation, not on anticoagulation, hyperlipidemia, Chronic T10 compression fracture, arthritis, osteoporosis, chronic pain or opiates at home , history of unrepaired right hip fracture 5 years ago which has restricted her mobility and now is mostly bedridden can only stand and pivot presents to the emergency room with increased generalized body pain for 1 week and left sided rib cage pain for 1 day Which has not been controlled with her pain medications. In the ED she was found to be in Afib with RVR, with leukocytosis, b/l consolidations on CXR consistent with multifocal pneumonia, and now with staph aureus bacteremia. #bacteremia - BCx +MRSA - repeat cultures negative - ID c/s appreciated - continue vancomycin IV - end date 12/09/18 - echo no vegetations #positive urinalysis - denies any urinary symptoms - UCx +VRE, 25,000 CFU #Afib/RVR - d/w cardiology - started digoxin - rate improved - metoprolol tartrate - ASA for anti-coagulation as per home regimen #CAP - complicated with chronic fibrosis - leukocytosis resolved, no fever, no cough #Generalized pain with osteoporosis and osteoarthritis - Chronic T 10 compression fracture, Chest pain - continue tylenol 3 #CKD stage 3 - stable #Chronic Systolic and Diastolic chf - euvolemic - continue Bumex and spironolactone #Gout - continue allopurinol. #Hyperlipidemia - continue Zetia. #Under weight with severe protein calorie malnutrition. - severe with BMI of 18, bi-temporal wasting #DVT prophylaxis #immobility - history of unrepaired right hip fracture 5 years ago which has restricted her mobility - continue PT Dispo: continue IV abx - end date 12/09, monitor pulse - started dig for rate control VS,Fishbone, I+O VS, Fishbone, I+O Laboratory Tests 11/30/18 05:46 Red Blood Count 4.14, Mean Corpuscular Volume 84.8, Mean Corpuscular Hemoglobin 24.9 L, Mean Corpuscular Hemoglobin Concent 29.3 L, Red Cell Distribution Width 18.2 H, Neutrophils (%) (Auto) 78.1 H, Lymphocytes (%) (Auto) 10.0 L, Monocytes (%) (Auto) 7.6 H, Eosinophils (%) (Auto) 3.0, Basophils (%) (Auto) 0.5, Neutrophils # (Auto) 7.2, Lymphocytes # (Auto) 0.9 L, Monocytes # (Auto) 0.7, Eosinophils # (Auto) 0.3, Basophils # (Auto) 0.1, Calcium Level 9.4 Vital Signs Date Time Temp Pulse Resp B/P (MAP) Pulse Ox O2 Delivery O2 Flow Rate FiO2 11/30/18 06:00 97.6 97 17 101/59 (71) 95 I&O- Last 24 Hours up to 6 AM 11/30/18 06:00 Intake Total 1080 ml Output Total 0 ml Balance 1080 ml RANULFO GILES MD Nov 30, 2018 10:41
[2018-11-30 14:00] VITALS: BP 124/62
[2018-11-30] MEDS: FOLIC ACID 1 MG TAB PO SCH (20:15)
[2018-11-30] MEDS: EZETIMIBE 10 MG TAB (ZETIA) PO SCH (20:15)
[2018-11-30 22:00] VITALS: BP 125/76
[2018-12-01] MEDS: METOPROLOL TART 25 MG TABLET PO SCH ×6 (02:23→21:47)
[2018-12-01] MEDS: ACETAMINOPH W/CODEINE #3 TAB UD PO PRN ×3 (02:33→18:14)
[2018-12-01 06:00] VITALS: BP 138/80
[2018-12-01] MEDS: VANCOMYCIN HCL 500 MG in D5W MINI-BAG PLUS 100 ML IV SCH (06:36)
[2018-12-01] MEDS: MOM 30ML SUSPENSION UDC PO SCH (09:00)
[2018-12-01] MEDS: BUMETANIDE 1 MG TAB PO SCH ×2 (09:40→17:30)
[2018-12-01] MEDS: SPIRONOLACTONE 25 MG TAB PO SCH (09:40)
[2018-12-01] MEDS: ASPIRIN 81 MG ENTERIC TAB PO SCH (09:40)
[2018-12-01] MEDS: SENOKOT S TAB PO SCH ×2 (09:41→21:00)
[2018-12-01] MEDS: ALLOPURINOL 300 MG TAB PO SCH (09:41)
[2018-12-01] MEDS: DIGOXIN 0.125 MG TAB PO SCH (09:42)
[2018-12-01] MEDS: ENOXAPARIN 30 MG/0.3 ML SYR (J1650) SC SCH (09:42)
[2018-12-01 14:00] VITALS: BP 125/74
--- NOTE | 2018-12-01 18:16 | IPN ---
DATE: 12/01/2018 Mrs. Hernandez complains of not feeling well tonight. She states she is trying to reach out to her daughter due to some issues with her caregivers at home and some payments, and she has not been able to reach Abi. She also complains of persistent chest pain on the left side, especially with position and coughing. She has a cough, but she is not able to produce any phlegm. She has no nausea, vomiting or diarrhea. No fever or chills. On physical exam, frail female in no acute distress. Temperature is 97.2, pulse 79 irregular, respirations 18, blood pressure 125/74, oxygen saturation 92% on room air. HEART: Normal. S1, S2. Irregular. LUNGS: Diffuse crackles bilaterally. Diminished breath sounds at the left base. ABDOMEN: Soft, nontender. No visceromegaly. EXTREMITIES: No edema. She has bilateral Coban dressings covering some venous ulcers. They were changed today, but I did not see her legs. LABORATORY DATA: White count is 9.2, hemoglobin 10.3, hematocrit 35.1, platelets 285, 78% neutrophils, 10% lymphocytes, 8% monocytes. Erythrocyte sedimentation rate 70, down from 92. Sodium 136, potassium 4.4, chloride 92, bicarbonate 39, BUN 29, creatinine 1.03, glucose 157, calcium 9.4. CRP 11.9, down from 18.2. IMPRESSION. 1. Methicillin-resistant Staphylococcus aureus (MRSA) sepsis with bacteremia and pneumonia involving bilateral lower lobes with pleuritic chest pain on the left side. The patient continues on intravenous (IV) vancomycin. She is currently on 500 mg every 24 hours. Vancomycin trough 19.8 on 11/30/2018. 2. Bacteruria with out urinary symptoms. Urinalysis has only two white cells. Cultures positive for vancomycin-resistant enterococci (VRE) and Klebsiella pneumoniae, do not need to be treated. PLAN: Obtain followup chest x-ray, PA and lateral, in the morning. Make sure she does not have a pleural effusion or empyema that needs to be drained, or necrotizing pneumonia. I have called her daughter, Abi, who is a nurse, and discussed the case with her. Continue IV vancomycin.
[2018-12-01] MEDS: FOLIC ACID 1 MG TAB PO SCH (21:46)
[2018-12-01] MEDS: EZETIMIBE 10 MG TAB (ZETIA) PO SCH (21:46)
[2018-12-02] MEDS: ACETAMINOPH W/CODEINE #3 TAB UD PO PRN ×3 (02:16→17:32)
[2018-12-02] MEDS: METOPROLOL TART 25 MG TABLET PO SCH ×6 (02:16→21:19)
[2018-12-02 06:54] LABS: VANCOMYCIN LEVEL TROUGH 20.7 UG/ML (10.0-20.0)
[2018-12-02 08:01] LABS: CALCIUM LEVEL 9.7 MG/DL (8.8-10.2); CREATININE FOR GFR 1.09 MG/DL (0.55-1.30); GLOMERULAR FILTRATION RATE 50.7 (>32); POTASSIUM SERUM 4.4 MEQ/L (3.5-5.1)
--- NOTE | 2018-12-02 08:17 | IPNPDOC ---
Subjective Date Seen The patient was seen on 12/01/18. Subjective Chief Complaint/HPI 88 yo female with staph aureus bacteremia, PNA requiring IV antibiotics until 12/09/18, history afib. She states "not a good day" and feels tired, decreased appetite and "ill" but unable to describe ill feeling. no nausea, no vomiting, no abdomen pain, still with cough, no CP Other systems Current Medications Acetaminophen/ Codeine Phosphate (Tylenol/Codeine #3 Tablet) 1 ea Q4HP PRN PO MILD PAIN (PS 1-4) Last administered on 11/27/18at 05:18; Start 11/26/18 at 14:00; Stop 11/28/18 at 11:37; Status DC Acetaminophen/ Codeine Phosphate (Tylenol/Codeine #3 Tablet) 1 ea Q6HP PRN PO MILD PAIN (PS 1-4); Start 11/25/18 at 12:30; Stop 11/26/18 at 13:49; Status DC Acetaminophen/ Codeine Phosphate (Tylenol/Codeine #3 Tablet) 1 ea Q6HP PRN PO MILD PAIN (PS 1-4); Start 11/28/18 at 11:45 Acetaminophen/ Codeine Phosphate (Tylenol/Codeine #3 Tablet) 2 ea Q6HP PRN PO MODERATE/SEVERE PAIN (PS 5-10) Last administered on 12/01/18at 09:41; Start 11/25/18 at 10:15 Al Hydrox/Mg Hydrox/Simethicone (Mylanta) 10 ml DAILYPRN PRN PO DYSPEPSIA; Start 11/23/18 at 21:15 Allopurinol (Zyloprim) 300 mg DAILY PO Last administered on 12/01/18at 09:41; Start 11/24/18 at 09:00 Aspirin (Ecotrin) 81 mg DAILY PO Last administered on 12/01/18at 09:40; Start 11/24/18 at 09:00 Azithromycin (Zithromax Tab) 500 mg QHS PO Last administered on 11/25/18at 20:29; Start 11/24/18 at 21:00; Stop 11/26/18 at 17:50; Status DC Bumetanide (Bumex) 1 mg BID@0800,1800 PO Last administered on 12/01/18at 09:40; Start 11/24/18 at 08:00 Ceftriaxone Sodium 1 gm/ Dextrose 50 ml @ 100 mls/hr Q24H IV Last administered on 11/26/18at 17:33; Start 11/24/18 at 18:00; Stop 11/26/18 at 17:50; Status DC Digoxin (Lanoxin) 0.125 mg DAILY PO Last administered on 12/01/18 09:42; Start 12/01/18 at 09:00 Enoxaparin Sodium (Lovenox) 30 mg DAILY SC Last administered on 12/01/18 09:42; Start 11/24/18 at 09:00 EZETIMIBE (Zetia) 10 mg QHS PO Last administered on 11/30/18 20:15; Start 11/23/18 at 21:00 Folic Acid (Folic Acid) 1 mg QHS PO Last administered on 11/30/18 20:15; Start 11/24/18 at 21:00 Home Med (Med Rec Complete!) ASDIRECTED XX ; Start 11/23/18 at 19:45; Stop 11/23/18 at 19:45; Status DC Magnesium Hydroxide (Milk Of Magnesia) 30 ml DAILY PO Last administered on 11/29/18at 08:15; Start 11/24/18 at 09:00 Meloxicam (Mobic) 7.5 mg BID PO Last administered on 11/24/18at 08:50; Start 11/23/18 at 21:00; Stop 11/25/18 at 13:59; Status DC Metoprolol Tartrate (Lopressor) 5 mg STAT STAT IV ; Start 11/26/18 at 21:46; Stop 11/26/18 at 21:47; Status Cancel Metoprolol Tartrate (Lopressor) 25 mg Q4H PO Last administered on 12/01/18at 09:41; Start 11/28/18 at 22:00 Metoprolol Tartrate (Lopressor) 50 mg BID PO Last administered on 11/27/18at 08:05; Start 11/24/18 at 09:00; Stop 11/27/18 at 11:24; Status DC Metoprolol Tartrate (Lopressor) 50 mg Q8H PO Last administered on 11/28/18at 13:27; Start 11/27/18 at 14:00; Stop 11/28/18 at 14:04; Status DC Ondansetron HCl (ZOFRAN INJection) 4 mg Q4H IV Last administered on 11/25/18 11:45; Start 11/25/18 at 11:00; Stop 11/25/18 at 12:24; Status DC Ondansetron HCl (ZOFRAN INJection) 4 mg Q4HP PRN IV NAUSEA Last administered on 11/26/18 01:13; Start 11/25/18 at 12:30; Stop 12/02/18 at 12:29 Ondansetron HCl (Zofran) 4 mg Q4HP PRN PO NAUSEA OR VOMITING Last administered on 11/25/18 04:53; Start 11/24/18 at 23:00; Stop 11/25/18 at 11:13; Status DC Oxycodone/ Acetaminophen (Percocet 5mg/ 325mg Tablet) 1 tab Q6HP PRN PO MILD/MODERATE PAIN (PS 1-7) Last administered on 11/24/18 21:34; Start 11/23/18 at 21:30; Stop 11/25/18 at 11:13; Status DC Oxycodone/ Acetaminophen (Percocet 5mg/ 325mg Tablet) 2 tab Q6HP PRN PO SEVERE PAIN (PS 8-10) Last administered on 11/24/18 04:12; Start 11/23/18 at 21:30; Stop 11/25/18 at 11:13; Status DC Senna/Docusate Sodium (Senokot S) 2 tab BID PO Last administered on 12/01/18 09:41; Start 11/23/18 at 21:00 Spironolactone (Aldactone) 25 mg DAILY PO Last administered on 12/01/18 09:40; Start 11/24/18 at 09:00 Vancomycin HCl 500 mg/Dextrose 110 ml @ 110 mls/hr Q24H IV Last administered on 12/01/18 06:36; Start 11/30/18 at 07:00 Vancomycin HCl 750 mg/IV Miscellaneous Supplies 1 each/ Dextrose 275 ml @ 275 mls/hr Q24H IV ; Start 11/25/18 at 08:00; Status Cancel Vancomycin HCl 750 mg/IV Miscellaneous Supplies 1 each/ Dextrose 275 ml @ 275 mls/hr Q24H IV Last administered on 6/2/19at 06:46; Start 11/26/18 at 07:00; Stop 11/30/18 at 06:53; Status DC Vancomycin HCl 1000 mg/IV Miscellaneous Supplies 1 each/ Dextrose 270 ml @ 270 mls/hr Q12H IV ; Start 11/25/18 at 08:15; Status UNV Objective Physical Examination General Exam: Positive: Alert, Cooperative, No Acute Distress Eye Exam: Positive: PERRLA, EOMI ENT Exam: Positive: Atraumatic, Mucous membr. moist/pink, Other ENT (hard of hearing) Neck Exam: Positive: Supple Chest Exam: Positive: Clear to auscultation; Negative: Rales, Rhonchi, Wheezing Heart Exam: Positive: Irregular Rhythm (rate controlled); Negative: Gallops, Murmurs, Rubs Telemetry: Positive: Atrial fibrillation Extremity Exam: Positive: Normal pulses; Negative: Clubbing, Cyanosis, Edema Skin Exam: Positive: Breakdown (small multiple less than 1 cm ulcers on both legs), Other skin issue (Bilateral stasis dermatitis) Neuro Exam: Positive: Normal Speech, Normal Tone, Sensation Intact Psych Exam: Positive: Mental status NL, Memory Intact, Oriented x 3 Assessment /Plan Assessment Summary: 88-year-old female with PMHx of diabetes, chronic kidney disease (CKD) III, gout, chronic systolic and diastolic heart failure ( EF 50% in 2017), atrial fibrillation, not on anticoagulation, hyperlipidemia, Chronic T10 compression fracture, arthritis, osteoporosis, chronic pain or opiates at home , history of unrepaired right hip fracture 5 years ago which has restricted her mobility and now is mostly bedridden can only stand and pivot presents to the emergency room with increased generalized body pain for 1 week and left sided rib cage pain for 1 day Which has not been controlled with her pain medications. In the ED she was found to be in Afib with RVR, with leukocytosis, b/l consolidations on CXR consistent with multifocal pneumonia, and now with staph aureus bacteremia. 1) MRSA bacteremia- repeat cultures negative - ID consulted, continue with vancomycin IV - end date 12/09/18 - echo no vegetations -high decision making with monitoring of vancomycin to avoid ATN or kidney injury 2) asymptomatic VRE UTI - present on admission; - denies any urinary symptoms - UCx +VRE, 25,000 CFU- not treated at this time. ID consulted. 3) Afib/RVR - started digoxin - resting rate improved - continue metroprolol tartrate - ASA for anti-coagulation as per home regimen - not candidate for warfarin or NOAC 4) CAP - presumed bacterial with underlying chronic lung fibrosis; Repeat CXR in AM 5) Generalized pain with osteoporosis and osteoarthritis - Chronic T 10 compression fracture, controlled with tylenol 3 6) CKD stage 3 - stable 7) Chronic Systolic and Diastolic chf - no acute exacerbation; currenlty euvolemic - continue Bumex and spironolactone 8) Gout - continue allopurinol. 9) Hyperlipidemia - continue Zetia. 10) Under weight with severe protein calorie malnutrition. - severe with BMI of 18, bi-temporal wasting 11) immobility - history of unrepaired right hip fracture 5 years ago which has restricted her mobility - continue PT Plan/VTE VTE Prophylaxis Ordered?: Yes VS, I&O, 24H, Fishbone Vital Signs/I&O Vital Signs Date Time Temp Pulse Resp B/P (MAP) Pulse Ox O2 Delivery O2 Flow Rate FiO2 12/01/18 10:11 16 12/01/18 09:42 90 12/01/18 09:41 111/65 12/01/18 06:00 97.6 92 I&O- Last 24 Hours up to 6 AM 12/01/18 06:00 Intake Total 898 ml Output Total 0 ml Balance 898 ml Laboratory Data Microbiology Microbiology 11/25/18 Blood Culture - Final, Complete NO GROWTH AFTER 5 DAYS 11/25/18 Blood Culture - Final, Complete NO GROWTH AFTER 5 DAYS 11/23/18 Blood Culture - Final, Complete Staph.aureus Methicillin Resis 11/23/18 Blood Culture - Final, Complete Staph.aureus Methicillin Resis 11/23/18 Respiratory Virus Panel (PCR) ([facility]) - Final, Complete 11/26/18 Urine Culture - Final, Complete Enterococcus Faecium (Vre) Klebsiella Pneumoniae SHIRLEY ARCE DO Dec 01, 2018 14:07
[2018-12-02 08:48] LABS: HEMATOCRIT 35.8 % (36.0-47.0); HEMOGLOBIN 10.3 g/dl (12.0-15.5); MEAN CORPUSCULAR HEMOGLOBIN 24.9 pg (27.0-33.0); MEAN CORPUSCULAR HGB CONC 28.8 g/dl (32.0-36.5); MEAN CORPUSCULAR VOLUME 86.7 fl (80.0-96.0); PLATELET COUNT, AUTOMATED 362 10^3/uL (150-450); RED BLOOD COUNT 4.13 10^6/uL (4.00-5.40); WHITE BLOOD COUNT 15.1 10^3/uL (4.0-10.0)
[2018-12-02 08:50] LABS: C REACTIVE PROTEIN QUANTITATIV 5.92 MG/DL (0.00-0.30)
--- NOTE | 2018-12-02 09:21 | PHACANCOPD ---
PHARMACY VANCOMYCIN DOSING Pt Demographics Demographics Patient Age:88 , Weight:50.100 , Gender: female Adjusted Body Weight Date: 11/27/18, Adjusted Body Weight: Kg Events Past 24 Hours Events Past 24 Hours: YES: Change in CrCl Vancomycin Vancomycin indication: MRSA Vancomycin Target Ranges: 15-20 mcg/ml Vancomycin Load Y/N: No Load Dose Date Time Vancomycin Load Dose: Date: Time: Vancomycin Dose Date: 11/27/18. Current Vancomycin Dose: [500mg q24] Intermittent Dosing?: No Labs Labs Laboratory Tests 12/02/18 05:37 Red Blood Count 4.13, Mean Corpuscular Volume 86.7, Mean Corpuscular Hemoglobin 24.9 L, Mean Corpuscular Hemoglobin Concent 28.8 L, Red Cell Distribution Width 18.8 H, Calcium Level 9.7 Micro Microbiology 11/25/18 Blood Culture - Final, Complete NO GROWTH AFTER 5 DAYS 11/25/18 Blood Culture - Final, Complete NO GROWTH AFTER 5 DAYS 11/23/18 Blood Culture - Final, Complete Staph.aureus Methicillin Resis 11/23/18 Blood Culture - Final, Complete Staph.aureus Methicillin Resis 11/23/18 Respiratory Virus Panel (PCR) ([facility]) - Final, Complete 11/26/18 Urine Culture - Final, Complete Enterococcus Faecium (Vre) Klebsiella Pneumoniae Creatinine Clearance Date:11/27/18. Creatinine Clearance: [37.5].calculated Assessment and Plan Maintaining Current Dose?: No Reason for dose change: Trough too high Pharmacist Note Pharmacist Note Date: 11/27/18. Pharmacist note:Vancomycin trough drawn this morning@5:59 reported as 14.7,SCR=1.06-Will maintain current Vancomycin regimen of 750mg iv [id number] continue to follow Date: 12/02/18. Pharmacist note: Vancomycin trough drawn this morning @0537 came back at 20.7. Patient's renal function decreased since yesterday with calculated CrCl today of 37.5. After calculating gen to be 0.025 I decided to hold the vancomycin dose for 8 hours and restart at 500mg q24h @1400. Scheduled trough for tomorrow at 1300. Will continue to monitor patient and adjust dose as needed. [facility] Dec 02, 2018 09:21
[2018-12-02] MEDS: DIGOXIN 0.125 MG TAB PO SCH (09:46)
[2018-12-02] MEDS: BUMETANIDE 1 MG TAB PO SCH ×2 (09:46→18:41)
[2018-12-02] MEDS: SENOKOT S TAB PO SCH ×2 (09:47→21:20)
[2018-12-02] MEDS: ASPIRIN 81 MG ENTERIC TAB PO SCH (09:47)
[2018-12-02] MEDS: SPIRONOLACTONE 25 MG TAB PO SCH (09:47)
[2018-12-02] MEDS: ALLOPURINOL 300 MG TAB PO SCH (09:47)
[2018-12-02] MEDS: ENOXAPARIN 30 MG/0.3 ML SYR (J1650) SC SCH (09:48)
--- NOTE | 2018-12-02 10:40 | REP ---
Chest two views HISTORY: Chest pain Comparison: 11/23/2018 An increase in interstitial markings is present in the lungs consistent with chronic interstitial change. Patchy density is present in the right lower lobe consistent with an infiltrate. Parenchymal densities are present in the left lower lobe consistent with atelectasis or infiltrate. The cardiac silhouette is enlarged. The pulmonary vasculature is normal in appearance. There is an old compression fracture of a lower thoracic vertebral body. There are old bilateral rib fractures. IMPRESSION: 1. Chronic interstitial change. 2. Right lower lobe infiltrate. 3. Left lower lobe atelectasis or infiltrate. Electronically Signed by Everardo Laurent MD 12/02/2018 10:32 A
[2018-12-02 14:00] VITALS: BP 111/66
[2018-12-02] MEDS ORDERED: VANCOMYCIN HCL 500 MG in D5W MINI-BAG PLUS 100 ML IV SCH (14:00)
[2018-12-02] MEDS: CEFEPIME HCL 2 GM in D5W MINI-BAG PLUS 50 ML IV SCH (14:28)
[2018-12-02] MEDS: FOLIC ACID 1 MG TAB PO SCH (21:19)
[2018-12-02] MEDS: EZETIMIBE 10 MG TAB (ZETIA) PO SCH (21:19)
[2018-12-02 22:00] VITALS: BP 110/60
[2018-12-03] MEDS: METOPROLOL TART 25 MG TABLET PO SCH ×6 (02:00→21:51)
[2018-12-03] MEDS: ACETAMINOPH W/CODEINE #3 TAB UD PO PRN ×3 (02:14→17:26)
[2018-12-03 06:00] VITALS: BP 140/68
--- NOTE | 2018-12-03 09:07 | IPNPDOC ---
Text Note Date of Service The patient was seen on 12/02/18. NOTE Summary: 88-year-old female with PMHx of diabetes, chronic kidney disease (CKD) III, gout, chronic systolic and diastolic heart failure ( EF 50% in 2017), atrial fibrillation, not on anticoagulation, hyperlipidemia, Chronic T10 compression fracture, arthritis, osteoporosis, chronic pain or opiates at home , history of unrepaired right hip fracture 5 years ago which has restricted her mobility and now is mostly bedridden can only stand and pivot presents to the emergency room with increased generalized body pain for 1 week and left sided rib cage pain for 1 day Which has not been controlled with her pain medications. In the ED she was found to be in Afib with RVR, with leukocytosis, b/l consolidations on CXR consistent with multifocal pneumonia, and now with staph aureus bacteremia. She was treated with Ceftriaxone/azithromycin until 11/26 and then changed to vancomycin only (present antibiotic until 12/09) Today she states doesn't feel good, cough more productive, thick white to yellow sputum, no fever, decreased appetite and increased malasie. Labs reviewed and patient with Increase WBC, CXR images reviewed and with multifocal pneumonia O: Vitals as below General: ill, mild distress, pleasant, hard of hearing HRRR LCTA with course scattered rhonchi - not cleared with cough, no wheeze, no rales Ext: lymphedema present, no pitting edema A/P: 1) MRSA bacteremia- repeat cultures negative - ID consulted, continue with vancomycin IV - end date 12/09/18 - echo no vegetations -high decision making with monitoring of vancomycin to avoid ATN or kidney injur y 2) asymptomatic VRE UTI - present on admission; - denies any urinary symptoms - UCx +VRE, 25,000 CFU- not treated at this time. ID consulted. 3) Afib/RVR - started digoxin - resting rate improved - continue metroprolol tartrate - ASA for anti-coagulation as per home regimen - not candidate for warfarin or NOAC 4) CAP - presumed bacterial with underlying chronic lung fibrosis; restart cefe pime as patient has myalgia, increased cough increasing WBC, and no improvement to CXR for prior PNA 5) Generalized pain with osteoporosis and osteoarthritis - Chronic T 10 compression fracture, controlled with tylenol 3 6) CKD stage 3 - stable 7) Chronic Systolic and Diastolic chf - no acute exacerbation; currenlty euvolemic - continue Bumex and spironolactone 8) Gout - continue allopurinol. 9) Hyperlipidemia - continue Zetia. 10) Under weight with severe protein calorie malnutrition. - severe with BMI of 18, bi-temporal wasting 11) immobility - history of unrepaired right hip fracture 5 years ago which has restricted her mobility - continue PT VS,Fishbone, I+O VS, Fishbone, I+O Laboratory Tests 12/02/18 05:37 Red Blood Count 4.13, Mean Corpuscular Volume 86.7, Mean Corpuscular Hemoglobin 24.9 L, Mean Corpuscular Hemoglobin Concent 28.8 L, Red Cell Distribution Width 18.8 H, Calcium Level 9.7 Vital Signs Date Time Temp Pulse Resp B/P (MAP) Pulse Ox O2 Delivery O2 Flow Rate FiO2 12/02/18 10:40 18 12/02/18 09:47 109 126/56 12/02/18 06:00 96.7 12/01/18 14:00 92 I&O- Last 24 Hours up to 6 AM 12/02/18 06:00 Intake Total 1138 ml Output Total 0 ml Balance 1138 ml SHIRLEY ARCE DO Dec 02, 2018 13:13
--- NOTE | 2018-12-03 09:08 | IPNPDOC ---
Text Note Date of Service The patient was seen on 12/03/18. NOTE S: feeling better today. minimal myalgia, no fever, less cough; no Nausea, no vomiting. She is being seen for pneumonia, MRSA bacteremia. Daughter and son in room and questions answered regarding hospitalization. O: Vitals as below General: pleasant, NAD, AAOx3 HRRR LCTA no W/R/R (improved from yesterday) Ext: no pitting edema; mild lymphedema A/P: 1) MRSA bacteremia- repeat cultures negative - ID consulted, continue with vancomycin IV - end date 12/09/18 - echo no vegetations -high decision making with monitoring of vancomycin to avoid ATN or kidney injury 2) asymptomatic VRE UTI - present on admission; - denies any urinary symptoms - UCx +VRE, 25,000 CFU- not treated at this time. ID consulted. 3) Afib/RVR - started digoxin - resting rate improved - continue metroprolol tartrate - ASA for anti-coagulation as per home regimen - not candidate for warfarin or NOAC Check dig level in AM 4) CAP - presumed bacterial with underlying chronic lung fibrosis; restart cefepime as patient has myalgia, increased cough increasing WBC, and no improvement to CXR for prior PNA; repeat CXR on 12/04, add nebs, add accapella 5) Generalized pain with osteoporosis and osteoarthritis - Chronic T 10 compression fracture, controlled with tylenol 3 6) CKD stage 3 - stable 7) Chronic Systolic and Diastolic chf - no acute exacerbation; currenlty euvolemic - continue Bumex and spironolactone 8) Gout - continue allopurinol. 9) Hyperlipidemia - continue Zetia. 10) Under weight with severe protein calorie malnutrition. - severe with BMI of 18, bi-temporal wasting 11) immobility - history of unrepaired right hip fracture 5 years ago which has restricted her mobility - continue PT VS,Fishbone, I+O VS, Fishbone, I+O Vital Signs Date Time Temp Pulse Resp B/P (MAP) Pulse Ox O2 Delivery O2 Flow Rate FiO2 12/03/18 06:00 98.6 81 18 140/68 (92) 96 I&O- Last 24 Hours up to 6 AM 12/03/18 06:00 Intake Total 360 ml Output Total 0 ml Balance 360 ml SHIRLEY ARCE DO Dec 03, 2018 09:08
[2018-12-03 09:54] LABS: BASO # 0.1 10^3/uL (0.0-0.2); BASO % 0.4 % (0.0-1.0); EOS # 0.2 10^3/uL (0.0-0.50); EOS % 1.2 % (0.0-3.0); HEMATOCRIT 36.7 % (36.0-47.0); LYMPH # 0.8 10^3/uL (1.5-4.5); LYMPH % 5.2 % (24.0-44.0); MEAN CORPUSCULAR HEMOGLOBIN 25.3 pg (27.0-33.0); MEAN CORPUSCULAR VOLUME 84.6 fl (80.0-96.0); MONO # 0.8 10^3/uL (0.0-0.8); MONO % 5.4 % (0.0-5.0); NEUTROPHILS # 13.5 10^3/uL (1.8-7.7); NEUTROPHILS % 87.1 % (36.0-66.0); PLATELET COUNT, AUTOMATED 365 10^3/uL (150-450); RED BLOOD COUNT 4.34 10^6/uL (4.00-5.40); WHITE BLOOD COUNT 15.5 10^3/uL (4.0-10.0)
[2018-12-03] MEDS: ASPIRIN 81 MG ENTERIC TAB PO SCH (10:05)
[2018-12-03] MEDS: BUMETANIDE 1 MG TAB PO SCH (10:06)
[2018-12-03] MEDS: ENOXAPARIN 30 MG/0.3 ML SYR (J1650) SC SCH (10:06)
[2018-12-03] MEDS: DIGOXIN 0.125 MG TAB PO SCH (10:06)
[2018-12-03] MEDS: SENOKOT S TAB PO SCH ×2 (10:07→20:14)
[2018-12-03] MEDS: ALLOPURINOL 300 MG TAB PO SCH (10:07)
[2018-12-03] MEDS: SPIRONOLACTONE 25 MG TAB PO SCH (10:07)
[2018-12-03 10:20] LABS: CALCIUM LEVEL 10.1 MG/DL (8.8-10.2); CREATININE FOR GFR 1.19 MG/DL (0.55-1.30); GLOMERULAR FILTRATION RATE 45.8 (>32); POTASSIUM SERUM 4.4 MEQ/L (3.5-5.1)
[2018-12-03 14:00] VITALS: BP 136/77
[2018-12-03] MEDS: guaiFENesin ER 600 MG TAB PO SCH ×2 (14:59→20:14)
[2018-12-03] MEDS: CEFEPIME HCL 2 GM in D5W MINI-BAG PLUS 50 ML IV SCH (14:59)
[2018-12-03] MEDS: IPRATROPIUM 0.5MG/ALBUTEROL 2.5MG INH SOL UD 3ML (DUONEB)(J7620) NEB SCH (15:14)
[2018-12-03] MEDS ORDERED: ISOVUE-370 76% 100ML VIAL (Q9967) As Ordered ONE (16:20)
[2018-12-03] MEDS ORDERED: NS 1,000 ML IV SCH (16:30)
[2018-12-03] MEDS: VANCOMYCIN HCL 500 MG in D5W MINI-BAG PLUS 100 ML IV SCH (17:26)
--- NOTE | 2018-12-03 17:57 | IPN ---
DATE: 12/03/2018 Anabelle does not feel well. She has slowly gotten worse with increasing cough, difficulty bringing up phlegm, persistent chest pain on the left side. She has not had a fever, but her white count has increased. She was started on IV cefepime along with vanco IV Temperature is 97.3, pulse 97, respirations 19, blood pressure 136/77, oxygen saturation 95% on room air. HEART: Normal. S1, S2. No murmurs. LUNGS: Crackles at both bases and few exterior to or wheezes. Diminished breath sounds at the left base. ABDOMEN: Soft, nontender. No visceromegaly. EXTREMITIES: No edema. She has bilateral Coban wraps on her legs for venous ulcers. IMAGING STUDIES: Chest x-ray, PA and lateral, shows right lower lobe infiltrate and left lower lobe infiltrate/atelectasis. LABORATORY DATA: White count 15.5, hemoglobin 11, hematocrit 36.7, platelets 365, 87% neutrophils, 5% lymphocytes, 5% monocytes. Sodium 136, potassium 4.4, chloride 93, bicarbonate 36, BUN 39, creatinine 1.19, glucose 172. Her BUN has increased from admission at 14. CRP 5.92, down from 18.4. IMPRESSION: 1. Methicillin-resistant Staphylococcus aureus (MRSA) bacteremia suspected to be related to pneumonia. On intravenous (IV) vancomycin for the past nine days D#9/14 Inflammation markers have improved, but white blood count has worsened and patient's pulmonary complaints have worsened. 2. Leukocytosis. Concern for a superimposed pneumonia, hospital acquired versus aspiration, and therefore cefepime was added by hospitalist. 3. Dehydration. BUN has increased. Patient has metabolic alkalosis.would discontinue bumex , discussed with hospitalist PLAN Agree with IV vanco/ cefepime as she had worsening leukocytosis and clinically felt worse. CT abd/ pelvis rule out metastatic complication of MRSA MTDD
--- NOTE | 2018-12-03 17:59 | REP ---
REASON: Bacteremia. PRIORS: None. CONTRAST: 100 mL Isovue-[id number]. The lung bases show patchy near consolidating opacities in both right and left lower lobe and essentially unchanged from the chest CT of 11/23/2018. There is also note made of four chamber cardiac enlargement status quo. The precontrast enhanced portion of the examination shows hepatic and splenic densities to be within normal limits. There is cholelithiasis. There is no nephrolithiasis. Contrast enhanced portion of the examination shows no evidence of an enhancing hepatic abnormality. Gallbladder wall does not abnormally enhance. The spleen, pancreas, adrenal glands and kidneys are within normal limits for the patient's age. There does appear to be bilateral renal cortical atrophy either age related or secondary to medial renal disease. There is no obstructive phenomenon. The bowel loops and their mesenteries are within normal limits. The abdominal aorta and paraaortic regions are within normal limits. There is no free fluid or free air in the abdomen. CT PELVIS: The bowel loops and their mesenteries are within normal limits. There is no evidence of a mass or adenopathy. There is no free fluid or free air. There is extensive muscular wasting throughout the exam. Bone window technique throughout the exam shows the bone to demineralized with advanced right hip and spinal degenerative changes. IMPRESSION:1. Lung base findings as described above suspicious for pneumonia. 2. Evidence of either age related renal atrophic change or medical renal disease. Correlate clinically. 3. No evidence of acute intraabdominal or intrapelvic disease. There is cholelithiasis. Findings as described above. Electronically Signed by Simon Kincaid DO 12/03/2018 06:07 P
[2018-12-03] MEDS: EZETIMIBE 10 MG TAB (ZETIA) PO SCH (20:14)
[2018-12-03] MEDS: FOLIC ACID 1 MG TAB PO SCH (20:14)
[2018-12-03 22:00] VITALS: BP 107/56
[2018-12-04] MEDS: IPRATROPIUM 0.5MG/ALBUTEROL 2.5MG INH SOL UD 3ML (DUONEB)(J7620) NEB SCH ×3 (00:30→23:27)
[2018-12-04] MEDS: METOPROLOL TART 25 MG TABLET PO SCH ×6 (02:01→21:37)
[2018-12-04] MEDS: ACETAMINOPH W/CODEINE #3 TAB UD PO PRN ×3 (02:02→16:39)
[2018-12-04 06:00] VITALS: BP 107/55
[2018-12-04 06:21] LABS: BASO # 0.1 10^3/uL (0.0-0.2); BASO % 0.4 % (0.0-1.0); EOS # 0.3 10^3/uL (0.0-0.50); HEMATOCRIT 33.7 % (36.0-47.0); HEMOGLOBIN 9.7 g/dl (12.0-15.5); LYMPH # 0.8 10^3/uL (1.5-4.5); LYMPH % 6.4 % (24.0-44.0); MEAN CORPUSCULAR HEMOGLOBIN 24.3 pg (27.0-33.0); MEAN CORPUSCULAR HGB CONC 28.8 g/dl (32.0-36.5); MEAN CORPUSCULAR VOLUME 84.5 fl (80.0-96.0); MONO # 0.8 10^3/uL (0.0-0.8); MONO % 6.5 % (0.0-5.0); NEUTROPHILS # 10.4 10^3/uL (1.8-7.7); NEUTROPHILS % 83.9 % (36.0-66.0); PLATELET COUNT, AUTOMATED 381 10^3/uL (150-450); RED BLOOD COUNT 3.99 10^6/uL (4.00-5.40); WHITE BLOOD COUNT 12.4 10^3/uL (4.0-10.0)
[2018-12-04 07:05] LABS: DIGOXIN LEVEL 1.8 NG/ML (0.5-2.0)
[2018-12-04] MEDS: ASPIRIN 81 MG ENTERIC TAB PO SCH (09:05)
[2018-12-04] MEDS: ENOXAPARIN 30 MG/0.3 ML SYR (J1650) SC SCH (09:05)
[2018-12-04] MEDS: guaiFENesin ER 600 MG TAB PO SCH ×2 (09:06→21:01)
[2018-12-04] MEDS: SENOKOT S TAB PO SCH ×2 (09:06→21:00)
[2018-12-04] MEDS: ALLOPURINOL 300 MG TAB PO SCH (09:06)
[2018-12-04] MEDS: SPIRONOLACTONE 25 MG TAB PO SCH (09:06)
[2018-12-04] MEDS: DIGOXIN 0.125 MG TAB PO SCH (09:06)
[2018-12-04 14:00] VITALS: BP 140/60
--- NOTE | 2018-12-04 14:34 | REP ---
REASON FOR EXAM: Pneumonia. COMPARISON: 12/02/2018 a two view exam. The technique utilized in obtaining the radiograph has magnified the cardiac silhouette and accentuated the interstitial markings. A patchy opacity seen in the right lower lobe has improved slightly, however, discoid opacities persist in each lung base unchanged on the left. The pleural angles are sharp. Cardiomediastinal silhouette is stable. The heart is mildly enlarged accentuated by technique. There is interstitial fibrotic change seen throughout the lung saldivar status quo. There is no change in the osseous structures. IMPRESSION: As above. Electronically Signed by Simon Kincaid DO 12/04/2018 04:44 P
[2018-12-04] MEDS: CEFEPIME HCL 2 GM in D5W MINI-BAG PLUS 50 ML IV SCH (15:25)
[2018-12-04] MEDS: VANCOMYCIN HCL 500 MG in D5W MINI-BAG PLUS 100 ML IV SCH (16:39)
--- NOTE | 2018-12-04 17:00 | IPN ---
DATE: 12/04/2018 INFECTIOUS DISEASE PROGRESS NOTE SUBJECTIVE: The patient is examined at bedside with her daughter in the room. She reports significant improvement from yesterday. Continues to have a dry cough but feels that she has phlegm stuck in her chest. Continues to use Acapella. No fevers or chills overnight. Still having pain with coughing, but states that this is mildly improved compared to prior day. White count is coming down, although C-reactive protein has tripled. She continues on vancomycin and cefepime, tolerating well. She has no other new complaints today. PHYSICAL EXAMINATION: VITAL SIGNS: Temperature 96.8, pulse 70, respirations 18, blood pressure 107/55, mean arterial pressure of 72, pulse oximetry 94% on room air. GENERAL: Resting comfortably in bed in no acute distress. Alert and oriented times three. Fully conversant. HEENT: Normocephalic, atraumatic. Moist mucous membranes. No oral lesions. CARDIAC: Normal S1, S2. Irregular rhythm. Rate is controlled. No appreciable murmurs. LUNGS: Bibasilar crackles, more so on the right. Mild rhonchi that clear with coughing. Distant lung sounds. ABDOMEN: Soft, nontender, nondistended. Positive bowel sounds. EXTREMITIES: No edema or calf tenderness. Legs are wrapped in Coban dressing for venous ulcers. LABORATORIES: WBC 12.4, hemoglobin and hematocrit 9.7 and 33.7, platelets 381. C-reactive protein 15. IMAGING: CT of the abdomen and pelvis from yesterday shows no intraabdominal or intrapelvic disease and confirms the current pneumonia that she is being treated for. IMPRESSION/PLAN: 1. Pneumonia, hospital acquired versus aspiration. The patient is doing much better today. Continue vancomycin on day 10 and cefepime on day 3. The patient is too frail to go home to continue the remainder of her antibiotic course and her daughter does not feel she is able to take care of her in her current status. She requires inpatient treatment through the weekend to complete her full course of 14 days of IV vancomycin. No need for additional lines or a peripherally inserted central catheter (PICC). Continue encouraging Acapella use, as the patient endorses a dry cough but feeling sputum is getting stuck. Her white count is improving. She has been afebrile overnight; however, her C-reactive protein did trend up. We will continue to monitor. 2. Methicillin resistant Staphylococcus aureus (MRSA) bacteremia on admission, had spontaneously cleared when rechecked 2 days later without any treatment for the MRSA. This may have been secondary to her pneumonia. Continue antibiotics as above. CT of the abdomen and pelvis was negative for any metastatic complication of the MRSA and did not show any intraabdominal abnormality. 3. Vancomycin-resistant Enterococcus (VRE) and Klebsiella bacteruria. The patient is currently asymptomatic and does not require treatment. Continue contact precautions. MTDD
[2018-12-04] MEDS: EZETIMIBE 10 MG TAB (ZETIA) PO SCH (21:01)
[2018-12-04] MEDS: FOLIC ACID 1 MG TAB PO SCH (21:01)
--- NOTE | 2018-12-04 21:05 | IPNPDOC ---
Text Note Date of Service The patient was seen on 12/04/18. NOTE S; patient states she is feeling better. more energy but still is tired. mostly dry cough with occasional phlegm production. no N, no V. appetite improving. no fever. no CP. O: Vitals as below General: pleasant, NAD, AAOx3 HRRR LCTA no W/R/R (improved from yesterday) Ext: no pitting edema; mild lymphedema A/P: 1) MRSA bacteremia- repeat cultures negative - ID consulted, continue with vancomycin IV - end date 12/09/18 - echo no vegetations -high decision making with monitoring of vancomycin to avoid ATN or kidney injury; check vanc level 12/05 2) asymptomatic VRE UTI - present on admission; - denies any urinary symptoms - UCx +VRE, 25,000 CFU- not treated at this time. ID consulted. 3) Afib/RVR - digoxin level monitor (high decision making with monitor of drug toxicity) - resting rate improved; because of underlying CKD and current dig level, will decrease digoxin to 3x a week and monitor heart rate. - continue metroprolol tartrate - ASA for anti-coagulation as per home regimen - not candidate for warfarin or NOAC 4) CAP - presumed bacterial with underlying chronic lung fibrosis; this is NOT hospital acquired pneumonia but I believe the pneumonia still present from admission when rocephin and azithromycin treated for 11/23-11/26; Currently on cefepime ; continue nebs, mucinex and accapella 5) Generalized pain with osteoporosis and osteoarthritis - Chronic T 10 compression fracture, controlled with tylenol 3 6) CKD stage 3 - stable 7) Chronic Systolic and Diastolic chf - no acute exacerbation; currenlty euvolemic - hold bumex, continue spironolactone. given 1 liter IVF. monitor for now 8) Gout - continue allopurinol. 9) Hyperlipidemia - continue Zetia. 10) Under weight with severe protein calorie malnutrition. - severe with BMI of 18, bi-temporal wasting 11) immobility - history of unrepaired right hip fracture 5 years ago which has restricted her mobility - continue PT VS,Fishbone, I+O VS, Fishbone, I+O Laboratory Tests 12/04/18 05:32 Red Blood Count 3.99 L, Mean Corpuscular Volume 84.5, Mean Corpuscular Hemoglobin 24.3 L, Mean Corpuscular Hemoglobin Concent 28.8 L, Red Cell Distribution Width 18.8 H, Neutrophils (%) (Auto) 83.9 H, Lymphocytes (%) (Auto) 6.4 L, Monocytes (%) (Auto) 6.5 H, Eosinophils (%) (Auto) 2.0, Basophils (%) (Auto) 0.4, Neutrophils # (Auto) 10.4 H, Lymphocytes # (Auto) 0.8 L, Monocytes # (Auto) 0.8, Eosinophils # (Auto) 0.3, Basophils # (Auto) 0.1 Vital Signs Date Time Temp Pulse Resp B/P (MAP) Pulse Ox O2 Delivery O2 Flow Rate FiO2 12/04/18 18:20 81 115/53 12/04/18 17:09 18 12/04/18 14:00 97.4 95 I&O- Last 24 Hours up to 6 AM 12/04/18 06:00 Intake Total 1410 ml Balance 1410 ml SHIRLEY ARCE DO Dec 04, 2018 21:05
[2018-12-04 22:00] VITALS: BP 111/61
[2018-12-05] MEDS: METOPROLOL TART 25 MG TABLET PO SCH ×6 (02:23→21:53)
[2018-12-05] MEDS: ACETAMINOPH W/CODEINE #3 TAB UD PO PRN ×3 (02:24→16:19)
[2018-12-05] MEDS: IPRATROPIUM 0.5MG/ALBUTEROL 2.5MG INH SOL UD 3ML (DUONEB)(J7620) NEB SCH ×2 (08:43→14:48)
[2018-12-05] MEDS: SENOKOT S TAB PO SCH ×2 (10:00→20:15)
[2018-12-05] MEDS: ENOXAPARIN 30 MG/0.3 ML SYR (J1650) SC SCH ×2 (10:00→10:14)
[2018-12-05] MEDS: SPIRONOLACTONE 25 MG TAB PO SCH (10:11)
[2018-12-05] MEDS: ASPIRIN 81 MG ENTERIC TAB PO SCH (10:11)
[2018-12-05] MEDS: ALLOPURINOL 300 MG TAB PO SCH (10:11)
[2018-12-05] MEDS: guaiFENesin ER 600 MG TAB PO SCH ×2 (10:11→20:15)
[2018-12-05 14:00] VITALS: BP 110/66
[2018-12-05] MEDS: CEFEPIME HCL 2 GM in D5W MINI-BAG PLUS 50 ML IV SCH (14:37)
[2018-12-05 15:36] LABS: BASO # 0.1 10^3/uL (0.0-0.2); BASO % 0.3 % (0.0-1.0); EOS # 0.3 10^3/uL (0.0-0.50); EOS % 1.7 % (0.0-3.0); HEMATOCRIT 32.4 % (36.0-47.0); HEMOGLOBIN 9.5 g/dl (12.0-15.5); LYMPH # 0.8 10^3/uL (1.5-4.5); LYMPH % 5.3 % (24.0-44.0); MEAN CORPUSCULAR HEMOGLOBIN 25.1 pg (27.0-33.0); MEAN CORPUSCULAR HGB CONC 29.3 g/dl (32.0-36.5); MEAN CORPUSCULAR VOLUME 85.7 fl (80.0-96.0); MONO # 0.9 10^3/uL (0.0-0.8); MONO % 5.8 % (0.0-5.0); NEUTROPHILS # 12.9 10^3/uL (1.8-7.7); NEUTROPHILS % 86.1 % (36.0-66.0); PLATELET COUNT, AUTOMATED 336 10^3/uL (150-450); RED BLOOD COUNT 3.78 10^6/uL (4.00-5.40)
[2018-12-05 15:43] LABS: C REACTIVE PROTEIN QUANTITATIV 7.14 MG/DL (0.00-0.30); CREATININE FOR GFR 0.96 MG/DL (0.55-1.30); GLOMERULAR FILTRATION RATE 58.7 (>32); VANCOMYCIN LEVEL TROUGH 17.3 UG/ML (10.0-20.0)
[2018-12-05] MEDS: VANCOMYCIN HCL 500 MG in D5W MINI-BAG PLUS 100 ML IV SCH (15:59)
[2018-12-05] MEDS: AZITHROMYCIN 250 MG TAB PO SCH (17:53)
[2018-12-05 18:00] VITALS: BP 106/65
--- NOTE | 2018-12-05 20:09 | IPNPDOC ---
Text Note Date of Service The patient was seen on 12/05/18. NOTE S: Patient states feeling better. no cough, no dysuria, no fever. more energy. looking forward to going home 12/09 She is being seen for MRSA bacteremia (on vanc) and multilobar pneumonia. She is wanting hospital bed for home. O: Vitals as below General: tired appearing, pleasant, NAD HRRR LCTA no Wheeze, +scattered rhonchi and diminished insp/exp effort ext : no pitting edema; +lymph edema present Item Value Date Time Vancomycin Level Trough 17.3 UG/ML 12/05/18 1501 CXR images reviewed and show RLL infiltrate with increased platelike atelectasis. A/P: 1) MRSA bacteremia- repeat cultures negative - ID consulted, continue with vancomycin IV - end date 12/09/18; trough therapeutic. - echo no vegetations -high decision making with monitoring of vancomycin to avoid ATN or kidney injury; 2) asymptomatic VRE UTI - present on admission; - denies any urinary symptoms - UCx +VRE, 25,000 CFU- not treated at this time. ID consulted. 3) Afib/RVR - digoxin level monitor (high decision making with monitor of drug toxicity) - resting rate improved; because of underlying CKD and current dig level, will decrease digoxin to 3x a week and monitor heart rate. - continue metroprolol tartrate - ASA for anti-coagulation as per home regimen - not candidate for warfarin or NOAC 4) CAP - presumed bacterial with underlying chronic lung fibrosis; this is NOT hospital acquired pneumonia but I believe the pneumonia still present from admission when rocephin and azithromycin treated for 11/23-11/26; Currently on cefepime and although CRP is decreased by half, the WBC increased, therefore will add azithomycin to regimn for total 5 day treatment ; continue nebs, mucinex and accapella. add IS 5) Generalized pain with osteoporosis and osteoarthritis - Chronic T 10 compression fracture, controlled with tylenol 3 - Chronic hip fracture with non ambulation Prescription written for hospital bed for home use to alleviate pain from body positioning, elevate head of bed to avoid aspiration, prevent contractures (non ambulatory) and to avoid further respiratory infection. Her medical conditions making a hospital bed medically necessary include: CHF, Afib,immobility due to non repairable hip fracture, pneumonia (requiring head of bed elevaton), severe arthritis and hip fracture requires variable height feature, to assist in getting out of bed for pivoting to use commode 6) CKD stage 3 - stable 7) Chronic Systolic and Diastolic chf - no acute exacerbation; currenlty euvolemic - hold bumex, hold spironolactone today because of hyponatremia. off IVF. m onitor 8) Gout - continue allopurinol. 9) Hyperlipidemia - continue Zetia. 10) Under weight with severe protein calorie malnutrition. - severe with BMI of 18, bi-temporal wasting 11) immobility - history of unrepaired right hip fracture 5 years ago which has restricted her mobility - continue PT Prescription written for hospital bed for home use to alleviate pain from body positioning, elevate head of bed to avoid aspiration, prevent contractures (non ambulatory) and to avoid further respiratory infection. Her medical conditions making a hospital bed medically necessary include: CHF, Afib,immobility due to non repairable hip fracture, pneumonia (requiring head of bed elevaton), severe arthritis and hip fracture requires variable height feature, to assist in getting out of bed for pivoting to use commode VS,Fishbone, I+O VS, Fishbone, I+O Laboratory Tests 12/05/18 15:01 Red Blood Count 3.78 L, Mean Corpuscular Volume 85.7, Mean Corpuscular Hemoglobin 25.1 L, Mean Corpuscular Hemoglobin Concent 29.3 L, Red Cell Distribution Width 18.6 H, Neutrophils (%) (Auto) 86.1 H, Lymphocytes (%) (Auto) 5.3 L, Monocytes (%) (Auto) 5.8 H, Eosinophils (%) (Auto) 1.7, Basophils (%) (Auto) 0.3, Neutrophils # (Auto) 12.9 H, Lymphocytes # (Auto) 0.8 L, Monocytes # (Auto) 0.9 H, Eosinophils # (Auto) 0.3, Basophils # (Auto) 0.1, Calcium Level 9.0 Vital Signs Date Time Temp Pulse Resp B/P (MAP) Pulse Ox O2 Delivery O2 Flow Rate FiO2 12/05/18 18:00 106/65 (79) 12/05/18 16:49 20 12/05/18 14:00 97.4 75 97 I&O- Last 24 Hours up to 6 AM 12/05/18 05:59 Intake Total 1970 ml Balance 1970 ml SHIRLEY ARCE DO Dec 05, 2018 20:09
[2018-12-05] MEDS: EZETIMIBE 10 MG TAB (ZETIA) PO SCH (20:16)
[2018-12-05] MEDS: FOLIC ACID 1 MG TAB PO SCH (20:16)
[2018-12-05 22:00] VITALS: BP_SYST 108; BP_SYST 121; BP_DIAS 62; BP_DIAS 68
[2018-12-06 02:00] VITALS: BP_SYST 126; BP_SYST 127; BP_DIAS 67; BP_DIAS 72
[2018-12-06] MEDS: METOPROLOL TART 25 MG TABLET PO SCH ×6 (02:25→22:32)
[2018-12-06] MEDS: ACETAMINOPH W/CODEINE #3 TAB UD PO PRN ×3 (02:26→22:33)
[2018-12-06 06:00] VITALS: BP_SYST 106; BP_SYST 119; BP_DIAS 56; BP_DIAS 57
[2018-12-06] MEDS: IPRATROPIUM 0.5MG/ALBUTEROL 2.5MG INH SOL UD 3ML (DUONEB)(J7620) NEB SCH ×3 (07:35→13:22)
[2018-12-06] MEDS: ENOXAPARIN 30 MG/0.3 ML SYR (J1650) SC SCH (09:00)
[2018-12-06] MEDS: guaiFENesin ER 600 MG TAB PO SCH ×2 (10:08→20:49)
[2018-12-06] MEDS: SENOKOT S TAB PO SCH ×2 (10:08→20:49)
[2018-12-06] MEDS: AZITHROMYCIN 250 MG TAB PO SCH (10:08)
[2018-12-06] MEDS: ASPIRIN 81 MG ENTERIC TAB PO SCH (10:09)
[2018-12-06] MEDS: ALLOPURINOL 300 MG TAB PO SCH (10:09)
[2018-12-06 14:00] VITALS: BP 116/69
[2018-12-06] MEDS: CEFEPIME HCL 2 GM in D5W MINI-BAG PLUS 50 ML IV SCH (14:25)
--- NOTE | 2018-12-06 16:08 | IPNPDOC ---
Text Note Date of Service The patient was seen on 12/06/18. NOTE S: patient sitting in chair eating lunch. using IS and PEP. states feeling better each day. still with "moist" cough but unable to "bring it up" per patient. no N, no V, no fever, cp with coughing, occasional SOB - states pain in back,ribs will "take away my breath". O: Vitals as below General: pleasant, NAD, AAOx3 HRRR with soft murmur LCTA with scattered rhonchi right more than left ext lymph edema A/P: 1) MRSA bacteremia- repeat cultures negative - ID consulted, continue with vancomycin IV - end date 12/09/18; trough therapeutic. - echo no vegetations -high decision making with monitoring of vancomycin to avoid ATN or kidney i njury; 2) asymptomatic VRE UTI - present on admission; - denies any urinary symptoms - UCx +VRE, 25,000 CFU- not treated at this time. ID consulted. 3) Afib/RVR - digoxin level monitor (high decision making with monitor of drug toxicity) - resting rate improved; because of underlying CKD and current dig level, will decrease digoxin to 3x a week and monitor heart rate. - continue metroprolol tartrate - ASA for anti-coagulation as per home regimen 4) CAP - presumed bacterial with underlying chronic lung fibrosis; this is NOT hospital acquired pneumonia but I believe the pneumonia still present from admission when rocephin and azithromycin treated for 11/23-11/26; restarted cefepime(day 4) and azithromycin (day 2). if WBC normalizes tomorrow, will jun nge cefepime to keflex for 6 more days and change IV azith to po for total 5 days. continue nebs, mucinex and accapella. 5) Generalized pain with osteoporosis and osteoarthritis - Chronic T 10 compression fracture, controlled with tylenol 3 - Chronic hip fracture with non ambulation Prescription written for hospital bed for home use to alleviate pain from body positioning, elevate head of bed to avoid aspiration, prevent contractures (non ambulatory) and to avoid further respiratory infection. Her medical conditions making a hospital bed medically necessary include: CHF, Afib,immobility due to non repairable hip fracture, pneumonia (requiring head of bed elevaton), severe arthritis and hip fracture requires variable height feature, to assist in getting out of bed for pivoting to use commode 6) CKD stage 3 - stable 7) Chronic Systolic and Diastolic chf - no acute exacerbation; currenlty euvolemic - hold bumex, hold spironolactone today because of hyponatremia. off IVF. monitor. consider restarting at lower dose tomorrow based on labs and exam. 8) Gout - continue allopurinol. 9) Hyperlipidemia - continue Zetia. 10) Under weight with severe protein calorie malnutrition. - severe with BMI of 18, bi-temporal wasting 11) immobility - history of unrepaired right hip fracture 5 years ago which has restricted her mobility - continue PT Prescription written for hospital bed for home use to alleviate pain from body positioning, elevate head of bed to avoid aspiration, prevent contractures (non ambulatory) and to avoid further respiratory infection. Her medical conditions making a hospital bed medically necessary include: CHF, Afib,immobility due to non repairable hip fracture, pneumonia (requiring head of bed elevaton), severe arthritis and hip fracture requires variable height feature, to assist in getting out of bed for pivoting to use commode VS,Fishbone, I+O VS, Fishbone, I+O Vital Signs Date Time Temp Pulse Resp B/P (MAP) Pulse Ox O2 Delivery O2 Flow Rate FiO2 12/06/18 14:00 97.8 85 18 116/69 (85) 98 I&O- Last 24 Hours up to 6 AM 12/06/18 06:00 Intake Total 1150 ml Balance 1150 ml SHIRLEY ARCE DO Dec 06, 2018 16:08
[2018-12-06] MEDS: VANCOMYCIN HCL 500 MG in D5W MINI-BAG PLUS 100 ML IV SCH (17:10)
[2018-12-06] MEDS: FOLIC ACID 1 MG TAB PO SCH (20:49)
[2018-12-06] MEDS: EZETIMIBE 10 MG TAB (ZETIA) PO SCH (20:49)
[2018-12-06 22:00] VITALS: BP 112/66
[2018-12-07] MEDS: METOPROLOL TART 25 MG TABLET PO SCH ×6 (01:48→21:12)
[2018-12-07] MEDS: ACETAMINOPH W/CODEINE #3 TAB UD PO PRN ×3 (05:44→17:39)
[2018-12-07 06:00] VITALS: BP 119/59
[2018-12-07 06:08] LABS: BASO # 0.1 10^3/uL (0.0-0.2); BASO % 0.6 % (0.0-1.0); EOS # 0.3 10^3/uL (0.0-0.50); EOS % 2.4 % (0.0-3.0); HEMATOCRIT 32.7 % (36.0-47.0); HEMOGLOBIN 9.4 g/dl (12.0-15.5); LYMPH # 1.1 10^3/uL (1.5-4.5); LYMPH % 9.4 % (24.0-44.0); MEAN CORPUSCULAR HEMOGLOBIN 25.1 pg (27.0-33.0); MEAN CORPUSCULAR HGB CONC 28.7 g/dl (32.0-36.5); MEAN CORPUSCULAR VOLUME 87.4 fl (80.0-96.0); MONO # 0.8 10^3/uL (0.0-0.8); MONO % 6.9 % (0.0-5.0); NEUTROPHILS % 79.9 % (36.0-66.0); PLATELET COUNT, AUTOMATED 329 10^3/uL (150-450); RED BLOOD COUNT 3.74 10^6/uL (4.00-5.40); WHITE BLOOD COUNT 11.3 10^3/uL (4.0-10.0)
[2018-12-07 06:46] LABS: ALBUMIN 2.1 GM/DL (3.2-5.2); ALT/SGPT 8 U/L (12-78); BILIRUBIN,TOTAL 0.3 MG/DL (0.2-1.0); BLOOD UREA NITROGEN 25 MG/DL (7-18); C REACTIVE PROTEIN QUANTITATIV 4.28 MG/DL (0.00-0.30); CALCIUM LEVEL 9.2 MG/DL (8.8-10.2); CARBON DIOXIDE LEVEL 32 MEQ/L (21-32); CHLORIDE LEVEL 100 MEQ/L (98-107); CREATININE FOR GFR 0.92 MG/DL (0.55-1.30); GLOMERULAR FILTRATION RATE > 60.0 (>32); GLUCOSE, FASTING 141 MG/DL (70-100); POTASSIUM SERUM 4.2 MEQ/L (3.5-5.1); SODIUM LEVEL 137 MEQ/L (136-145); TOTAL PROTEIN 7.5 GM/DL (6.4-8.2)
[2018-12-07] MEDS: IPRATROPIUM 0.5MG/ALBUTEROL 2.5MG INH SOL UD 3ML (DUONEB)(J7620) NEB SCH ×2 (07:31)
[2018-12-07] MEDS ORDERED: DIGOXIN 0.125 MG TAB PO SCH (09:00)
[2018-12-07] MEDS: ENOXAPARIN 30 MG/0.3 ML SYR (J1650) SC SCH ×2 (09:00→09:18)
[2018-12-07] MEDS: guaiFENesin ER 600 MG TAB PO SCH ×2 (09:18→21:11)
[2018-12-07] MEDS: ASPIRIN 81 MG ENTERIC TAB PO SCH (09:18)
[2018-12-07] MEDS: SPIRONOLACTONE 25 MG TAB PO SCH (09:18)
[2018-12-07] MEDS: AZITHROMYCIN 250 MG TAB PO SCH (09:18)
[2018-12-07] MEDS: SENOKOT S TAB PO SCH ×3 (09:18→21:11)
[2018-12-07] MEDS: ALLOPURINOL 300 MG TAB PO SCH (09:18)
[2018-12-07] MEDS: CEFEPIME HCL 2 GM in D5W MINI-BAG PLUS 50 ML IV SCH (13:22)
[2018-12-07 14:00] VITALS: BP 118/56
[2018-12-07] MEDS: VANCOMYCIN HCL 500 MG in D5W MINI-BAG PLUS 100 ML IV SCH (15:18)
--- NOTE | 2018-12-07 19:17 | IPNPDOC ---
Text Note Date of Service The patient was seen on 12/07/18. NOTE S: patient states feeling better today. no fever, no nausea, no vomiting. less SOB. using IS and obtain 500ml . using PEP daily. Family in room and reviewed hospital course and improving labs O: Vitals as below General: pleasant, NAD, AAOx3 HRRR with soft murmur LCTA with scattered rhonchi right more than left ext lymph edema A/P: In summary, Hospital day 14 for this 88yo female admitted with fever, cough due to multilobal pneumonia, MRSA bacteremia, asymptomatic VRE UTI. She had brief episode of afib rvr and started on digoxin , aggressively diuresed for CHF . ID consulted and recommended vanc until 12/09. Patient had relapse with incease WBC several days after stopping azith,rocephin. medications resumed as below with improvement of leukocytosis. 1) MRSA bacteremia- repeat cultures negative - ID consulted, continue with vancomycin IV - end date 12/09/18; trough therapeutic. - echo no vegetations -high decision making with monitoring of vancomycin to avoid ATN or kidney injury; 2) asymptomatic VRE UTI - present on admission; - denies any urinary symptoms - UCx +VRE, 25,000 CFU- not treated at this time. ID consulted. 3) Afib/RVR - rate now controlled. - digoxin started during hospitalization due to persistent tachycardia. this has resolved and digoxin discontinue as heart rate trending lower. - continue metroprolol tartrate and adjusting dose for rate control - ASA for anti-coagulation as per home regimen 4) CAP - presumed bacterial with underlying chronic lung fibrosis; this is NOT hospital acquired pneumonia but I believe the pneumonia still present from admission when rocephin and azithromycin treated for 11/23-11/26; restarted cefepime(day 5) and azithromycin (day 3). if WBC normalizes tomorrow, consider change cefepime to keflex for 6 more days and change IV azith to po for total 5 days. continue nebs, mucinex and accapella. 5) Generalized pain with osteoporosis and osteoarthritis - Chronic T 10 compression fracture, controlled with tylenol 3 - Chronic hip fracture with non ambulation Prescription written for hospital bed for home use to alleviate pain from body positioning, elevate head of bed to avoid aspiration, prevent contractures (non ambulatory) and to avoid further respiratory infection. Her medical conditions making a hospital bed medically necessary include: CHF, Afib,immobility due to non repairable hip fracture, pneumonia (requiring head of bed elevaton), severe arthritis and hip fracture requires variable height feature, to assist in getting out of bed for pivoting to use commode 6) CKD stage 3 - stable 7) Chronic Systolic and Diastolic chf - no acute exacerbation; currenlty eu volemic - hold bumex, hold spironolactone for the past 2 days because of hyponatremia. off IVF. monitor. consider restarting at lower dose bumex tomorrow based on labs and exam. 8) Gout - continue allopurinol. 9) Hyperlipidemia - continue Zetia. 10) Under weight with severe protein calorie malnutrition. - severe with BMI of 18, bi-temporal wasting 11) immobility - history of unrepaired right hip fracture 5 years ago which has restricted her mobility - continue PT Prescription written for hospital bed for home use to alleviate pain from body positioning, elevate head of bed to avoid aspiration, prevent contractures (non ambulatory) and to avoid further respiratory infection. Her medical conditions making a hospital bed medically necessary include: CHF, Afib,immobility due to non repairable hip fracture, pneumonia (requiring head of bed elevaton), severe arthritis and hip fracture requires variable height feature, to assist in getting out of bed for pivoting to use commode VS,Fishbone, I+O VS, Fishbone, I+O Laboratory Tests 12/07/18 05:11 Red Blood Count 3.74 L, Mean Corpuscular Volume 87.4, Mean Corpuscular Hemoglobin 25.1 L, Mean Corpuscular Hemoglobin Concent 28.7 L, Red Cell Distribution Width 18.8 H, Neutrophils (%) (Auto) 79.9 H, Lymphocytes (%) (Auto) 9.4 L, Monocytes (%) (Auto) 6.9 H, Eosinophils (%) (Auto) 2.4, Basophils (%) (Auto) 0.6, Neutrophils # (Auto) 9.0 H, Lymphocytes # (Auto) 1.1 L, Monocytes # (Auto) 0.8, Eosinophils # (Auto) 0.3, Basophils # (Auto) 0.1, Calcium Level 9.2, Aspartate Amino Transf (AST/SGOT) 11, Alanine Aminotransferase (ALT/SGPT) 8 L, Alkaline Phosphatase 94, Total Bilirubin 0.3, Total Protein 7.5, Albumin 2.1 L Vital Signs Date Time Temp Pulse Resp B/P (MAP) Pulse Ox O2 Delivery O2 Flow Rate FiO2 12/07/18 18:26 18 12/07/18 17:36 97 104/87 12/07/18 14:00 98.0 93 I&O- Last 24 Hours up to 6 AM 12/07/18 06:00 Intake Total 1060 ml Balance 1060 ml SHIRLEY ARCE DO Dec 07, 2018 19:17
[2018-12-07] MEDS: FOLIC ACID 1 MG TAB PO SCH (21:11)
[2018-12-07] MEDS: EZETIMIBE 10 MG TAB (ZETIA) PO SCH (21:11)
[2018-12-07 22:00] VITALS: BP 133/67
[2018-12-08] MEDS: METOPROLOL TART 25 MG TABLET PO SCH ×6 (02:11→21:26)
[2018-12-08] MEDS: ACETAMINOPH W/CODEINE #3 TAB UD PO PRN ×4 (02:12→23:23)
[2018-12-08 06:00] VITALS: BP 109/54
[2018-12-08 06:12] LABS: BASO # 0.1 10^3/uL (0.0-0.2); BASO % 0.6 % (0.0-1.0); EOS # 0.3 10^3/uL (0.0-0.50); EOS % 2.5 % (0.0-3.0); HEMATOCRIT 33.1 % (36.0-47.0); HEMOGLOBIN 9.5 g/dl (12.0-15.5); LYMPH % 8.8 % (24.0-44.0); MEAN CORPUSCULAR HEMOGLOBIN 25.1 pg (27.0-33.0); MEAN CORPUSCULAR HGB CONC 28.7 g/dl (32.0-36.5); MEAN CORPUSCULAR VOLUME 87.6 fl (80.0-96.0); MONO # 0.6 10^3/uL (0.0-0.8); MONO % 5.3 % (0.0-5.0); NEUTROPHILS # 9.7 10^3/uL (1.8-7.7); NEUTROPHILS % 81.9 % (36.0-66.0); PLATELET COUNT, AUTOMATED 334 10^3/uL (150-450); RED BLOOD COUNT 3.78 10^6/uL (4.00-5.40); WHITE BLOOD COUNT 11.9 10^3/uL (4.0-10.0)
[2018-12-08 06:31] LABS: BLOOD UREA NITROGEN 26 MG/DL (7-18); C REACTIVE PROTEIN QUANTITATIV 2.82 MG/DL (0.00-0.30); CARBON DIOXIDE LEVEL 33 MEQ/L (21-32); CHLORIDE LEVEL 100 MEQ/L (98-107); CREATININE FOR GFR 0.84 MG/DL (0.55-1.30); GLOMERULAR FILTRATION RATE > 60.0 (>32); GLUCOSE, FASTING 129 MG/DL (70-100); POTASSIUM SERUM 4.2 MEQ/L (3.5-5.1); SODIUM LEVEL 136 MEQ/L (136-145)
[2018-12-08] MEDS: IPRATROPIUM 0.5MG/ALBUTEROL 2.5MG INH SOL UD 3ML (DUONEB)(J7620) NEB SCH ×4 (07:19→23:53)
--- NOTE | 2018-12-08 08:52 | REP ---
Chest x-ray: Two views. History: Pneumonia. Comparison chest x-ray: December 04, 2018. November 23, 2018 December 02, 2018 radiographs are also reviewed. Findings: Frontal and lateral views of the chest demonstrate coarse bibasilar linear densities consistent with plate-like atelectasis. This is more extensive on the left than the right. There is progressive opacification and associated with this in the left base compared with the November 23, 2018 and December 02, 2018 prior radiographs. This compatible with left lower lobe pneumonia. The linear opacities in the right base are compatible with plate-like atelectasis and are similar over that time interval. There are multiple bilateral old appearing rib fractures. Mild to moderate cardiac enlargement is noted. On lateral radiograph, there are is an osteoporotic wedge compression deformity in the lower thoracic spine unchanged from December 02, 2018. Impression: Increased opacification left base compared with December 02, 2018 and December 04, 2018 consistent with left base pneumonia. Bibasilar discoid atelectatic changes are again noted. Cardiomegaly is observed. Electronically Signed by Arthur Winchester MD 12/08/2018 08:42 A
[2018-12-08] MEDS: ENOXAPARIN 30 MG/0.3 ML SYR (J1650) SC SCH (09:00)
[2018-12-08] MEDS: AZITHROMYCIN 250 MG TAB PO SCH (09:16)
[2018-12-08] MEDS: SENOKOT S TAB PO SCH ×3 (09:16→21:26)
[2018-12-08] MEDS: ALLOPURINOL 300 MG TAB PO SCH (09:17)
[2018-12-08] MEDS: ASPIRIN 81 MG ENTERIC TAB PO SCH (09:17)
[2018-12-08] MEDS: guaiFENesin ER 600 MG TAB PO SCH ×2 (09:17→21:26)
[2018-12-08] MEDS: SPIRONOLACTONE 25 MG TAB PO SCH (09:17)
--- NOTE | 2018-12-08 12:53 | IPNPDOC ---
Subjective Date Seen The patient was seen on 12/08/18. Subjective Chief Complaint/HPI Patient is comfortable offers no new complaints at the present time General: Denies: ROS Unobtainable, Chills, Night Sweats, Fatigue, Malaise, Normal Appetite, Other Symptoms Eyes: Denies: Pain, Vision change ENT: Denies: Head Aches, Ear Pain, Dysphagia, Sinus Congestion, Post Nasal Drip, Sore Throat, Epistaxis, Other Symptoms Skin: Denies: Rash, Lesions, Jaundice, Bruising, Itching, Dry, Breakdown, Nail Changes, Other Pulmonary: Denies: Dyspnea, Cough, Pleuritic Chest Pain, Other Symptoms Cardiovascular: Denies: Chest Pain, Palpitations, Orthopnea, Paroxysmal Noc. Dyspnea, Edema, Lt Headedness, Other Symptoms Gastrointestinal: Denies: Nausea, Vomiting, Abdominal Pain, Diarrhea, Con stipation, Melena, Hematochezia, Other Symptoms Neurological: Denies: Weakness, Numbness, Incoordination, Change in speech, Confusion, Seizures, Other Symptoms Objective Physical Examination General Exam: Positive: Alert, Cooperative, No Acute Distress Eye Exam: Positive: PERRLA, EOMI ENT Exam: Positive: Atraumatic, Mucous membr. moist/pink, Other ENT (hard of hearing) Neck Exam: Positive: Supple Chest Exam: Positive: Clear to auscultation; Negative: Rales, Rhonchi, Wheezing Heart Exam: Positive: Irregular Rhythm (rate controlled); Negative: Gallops, Murmurs, Rubs Telemetry: Positive: Atrial fibrillation Extremity Exam: Positive: Normal pulses; Negative: Clubbing, Cyanosis, Edema Skin Exam: Positive: Breakdown (small multiple less than 1 cm ulcers on both legs), Other skin issue (Bilateral stasis dermatitis) Neuro Exam: Positive: Normal Speech, Normal Tone, Sensation Intact Psych Exam: Positive: Mental status NL, Memory Intact, Oriented x 3 Assessment /Plan Problems (1) Atrial fibrillation with RVR (2) Pneumonia Status: Acute (3) ARF (acute renal failure) Status: Acute Plan/VTE VTE Prophylaxis Ordered?: Yes Plan In summary, Hospital day 14 for this 88yo female admitted with fever, cough due to multilobal pneumonia, MRSA bacteremia, asymptomatic VRE UTI. She had brief episode of afib rvr and started on digoxin , aggressively diuresed for CHF . ID consulted and recommended vanc until 12/09. Patient had relapse with incease WBC several days after stopping azith,rocephin. medications resumed as below with improvement of leukocytosis. 1) MRSA bacteremia- repeat cultures negative - ID consulted, continue with vancomycin IV - end date 12/09/18; trough therapeutic. - echo no vegetations -high decision making with monitoring of vancomycin to avoid ATN or kidney injury; 2) asymptomatic VRE UTI - present on admission; - denies any urinary symptoms - UCx +VRE, 25,000 CFU- not treated at this time. ID consulted. 3) Afib/RVR - rate now controlled. - digoxin started during hospitalization due to persistent tachycardia. this has resolved and digoxin discontinue as heart rate trending lower. - continue metroprolol tartrate and adjusting dose for rate control - ASA for anti-coagulation as per home regimen 4) CAP - presumed bacterial with underlying chronic lung fibrosis; this is NOT hospital acquired pneumonia but I believe the pneumonia still present from admission when rocephin and azithromycin treated for 11/23-11/26; restarted cefepime(day 5) and azithromycin (day 3). if WBC normalizes tomorrow, consider change cefepime to keflex for 6 more days and change IV azith to po for total 5 days. continue nebs, mucinex and accapella. 5) Generalized pain with osteoporosis and osteoarthritis - Chronic T 10 compression fracture, controlled with tylenol 3 - Chronic hip fracture with non ambulation Prescription written for hospital bed for home use to alleviate pain from body positioning, elevate head of bed to avoid aspiration, prevent contractures (non ambulatory) and to avoid further respiratory infection. Her medical conditions making a hospital bed medically necessary include: CHF, Afib,immobility due to non repairable hip fracture, pneumonia (requiring head of bed elevaton), severe arthritis and hip fracture requires variable height feature, to assist in getting out of bed for pivoting to use commode 6) CKD stage 3 - stable 7) Chronic Systolic and Diastolic chf - no acute exacerbation; currenlty euvolemic - hold bumex, hold spironolactone for the past 2 days because of hyponatremia. off IVF. monitor. consider restarting at lower dose bumex tomorrow based on labs and exam. 8) Gout - continue allopurinol. 9) Hyperlipidemia - continue Zetia. 10) Under weight with severe protein calorie malnutrition. - severe with BMI of 18, bi-temporal wasting 11) immobility - history of unrepaired right hip fracture 5 years ago which has restricted her mobility - continue PT VS, I&O, 24H, Fishbone Vital Signs/I&O Vital Signs Date Time Temp Pulse Resp B/P (MAP) Pulse Ox O2 Delivery O2 Flow Rate FiO2 12/08/18 10:05 18 12/08/18 09:16 60 108/61 12/08/18 06:00 97.6 97 I&O- Last 24 Hours up to 6 AM 12/08/18 06:00 Intake Total 780 ml Balance 780 ml Laboratory Data 24H LABS Laboratory Tests 2 12/08/18 05:42: Immature Granulocyte % (Auto) 0.9, White Blood Count 11.9H, Red Blood Count 3.78L, Hemoglobin 9.5L, Hematocrit 33.1L, Mean Corpuscular Volume 87.6, Mean Corpuscular Hemoglobin 25.1L, Mean Corpuscular Hemoglobin Concent 28.7L, Red Cell Distribution Width 18.7H, Platelet Count 334, Neutrophils (%) (Auto) 81.9H, Lymphocytes (%) (Auto) 8.8L, Monocytes (%) (Auto) 5.3H, Eosinophils (%) (Auto) 2.5, Basophils (%) (Auto) 0.6, Neutrophils # (Auto) 9.7H, Lymphocytes # (Auto) 1.0L, Monocytes # (Auto) 0.6, Eosinophils # (Auto) 0.3, Basophils # (Auto) 0.1, Nucleated Red Blood Cells % (auto) 0.0, Anion Gap 3L, Glomerular Filtration Rate > 60.0, Blood Urea Nitrogen 26H, Creatinine 0.84, Sodium Level 136, Potassium Level 4.2, Chloride Level 100, Carbon Dioxide Level 33H, Calcium Level 9.0, C- Reactive Protein, Quantitative 2.82H CBC/BMP Laboratory Tests 12/08/18 05:42 Red Blood Count 3.78 L, Mean Corpuscular Volume 87.6, Mean Corpuscular Hemoglobin 25.1 L, Mean Corpuscular Hemoglobin Concent 28.7 L, Red Cell Distribution Width 18.7 H, Neutrophils (%) (Auto) 81.9 H, Lymphocytes (%) (Auto) 8.8 L, Monocytes (%) (Auto) 5.3 H, Eosinophils (%) (Auto) 2.5, Basophils (%) (Auto) 0.6, Neutrophils # (Auto) 9.7 H, Lymphocytes # (Auto) 1.0 L, Monocytes # (Auto) 0.6, Eosinophils # (Auto) 0.3, Basophils # (Auto) 0.1, Calcium Level 9.0 SAIGE WOODALL MD Dec 08, 2018 12:53
[2018-12-08 14:00] VITALS: BP 116/59
[2018-12-08] MEDS: CEFEPIME HCL 2 GM in D5W MINI-BAG PLUS 50 ML IV SCH (14:55)
[2018-12-08] MEDS: VANCOMYCIN HCL 500 MG in D5W MINI-BAG PLUS 100 ML IV SCH (16:13)
[2018-12-08 17:58] LABS: HEMATOCRIT 33.3 % (36.0-47.0); HEMOGLOBIN 9.6 g/dl (12.0-15.5); MEAN CORPUSCULAR HEMOGLOBIN 24.6 pg (27.0-33.0); MEAN CORPUSCULAR HGB CONC 28.8 g/dl (32.0-36.5); MEAN CORPUSCULAR VOLUME 85.4 fl (80.0-96.0); PLATELET COUNT, AUTOMATED 399 10^3/uL (150-450); WHITE BLOOD COUNT 16.9 10^3/uL (4.0-10.0)
--- NOTE | 2018-12-08 18:19 | IPN ---
DATE: 12/08/2018 INFECTIOUS DISEASE PROGRESS NOTE SUBJECTIVE: Patient examined at bedside. She states she feels much better today. Coughing has significantly improved. Is not bringing up much phlegm. Chest discomfort is also improved. No fevers or chills lately. She feels she has more energy. White count is stable at 11. C-reactive protein (CRP) is trending down. As of this morning, she is on azithromycin 500 mg daily by mouth, vancomycin intravenous (IV) every 24 hours, and cefepime IV every 24 hours. PHYSICAL EXAMINATION: VITAL SIGNS: Temperature 97.4, pulse 98, respirations 19, blood pressure (BP) 116/59, mean arterial pressure (MAP) of 78, pulse oximetry 94% on room air. GENERAL: Resting comfortably in bed. No acute distress. Alert and oriented times three. Fully conversant. HEENT: Normocephalic, atraumatic. Moist mucous membranes without any oral lesions. NECK: Supple without adenopathy. CARDIAC. S1, S2, irregular rhythm. Rate is controlled. LUNGS: Clear throughout without adventitious sounds. Minimal rhonchi, clearing with coughing. Overall distant lung sounds. ABDOMEN: Soft, nontender, nondistended. Normoactive bowel sounds. EXTREMITIES: Both legs wrapped in Coban dressing for venous ulcers. Likely has 1+ edema underneath. No calf tenderness. Distal pulses intact. LABORATORY DATA: WBC 11.9, hemoglobin and hematocrit 9.3/33.1, platelets 334. Sodium and potassium of 36 and 4.2, BUN and creatinine 26 and 0.84, CRP 2.82. IMAGING: Chest x-ray from today, 12/08/2018 reads increased opacification on the left base compared with December 02 and December 04, consistent with left base pneumonia. Bibasilar discoid atelectatic changes again noted and cardiomegaly. ASSESSMENT: 1. Pneumonia, hospital acquired versus aspiration. 2. Methicillin-resistant Staphylococcus aureus (MRSA) bacteremia on admission with spontaneous clearance without any MRSA treatment. 3. Vancomycin-resistant Enterococcus (VRE) and klebsiella bacteruria. PLAN: Patient is clinically improving. Has been afebrile, coughing less, not having any sputum production. Is saturating well on room air. Today will be her last dose of intravenous (IV) vancomycin. Given that she unlikely has any atypical organisms for her pneumonia, will discontinue her azithromycin and cefepime as well. Will monitor her clinical improvement and recheck her CRP. Although chest x-ray notes increasing opacification of the left base, given that she is clinically improving, will continue monitoring when she completes her antibiotic today. Her MRSA bacteremia was likely secondary to the pneumonia and had spontaneously cleared without any treatment and negative blood cultures upon recheck as well as a negative echo and CT of the abdomen and pelvis without any findings of metastatic complication from the MRA. IV vancomycin will be completed today for a full 14-day course. For her asymptomatic bacteruria, this does not require treatment. Continue contact precautions. Monitor patient overnight. She does not require any further antibiotics currently. Pending her clinical improvement, she may be discharged tomorrow from infectious disease standpoint to followup in outpatient setting with Dr. Heredia in 1-2 weeks. My faculty preceptor for this patient encounter was physically present during the encounter and was fully available. All aspects of the patient interview, examination, medical decision making process, and medical care plan development were reviewed and approved by the faculty preceptor. The faculty preceptor is aware and concurs with the plan as stated in the body of this note and will attest to such by his/her co-signature. TD
[2018-12-08] MEDS: FOLIC ACID 1 MG TAB PO SCH (21:26)
[2018-12-08] MEDS: EZETIMIBE 10 MG TAB (ZETIA) PO SCH (21:26)
[2018-12-08 22:00] VITALS: BP 122/84
[2018-12-09] MEDS: METOPROLOL TART 25 MG TABLET PO SCH ×6 (02:48→21:39)
[2018-12-09] MEDS: ACETAMINOPH W/CODEINE #3 TAB UD PO PRN ×3 (05:27→20:04)
[2018-12-09 06:00] VITALS: BP 109/65
[2018-12-09] MEDS: IPRATROPIUM 0.5MG/ALBUTEROL 2.5MG INH SOL UD 3ML (DUONEB)(J7620) NEB SCH ×2 (08:14→15:32)
[2018-12-09 10:18] LABS: HEMATOCRIT 33.4 % (36.0-47.0); HEMOGLOBIN 9.9 g/dl (12.0-15.5); MEAN CORPUSCULAR HEMOGLOBIN 25.7 pg (27.0-33.0); MEAN CORPUSCULAR HGB CONC 29.6 g/dl (32.0-36.5); MEAN CORPUSCULAR VOLUME 86.8 fl (80.0-96.0); PLATELET COUNT, AUTOMATED 342 10^3/uL (150-450); RED BLOOD COUNT 3.85 10^6/uL (4.00-5.40); WHITE BLOOD COUNT 11.1 10^3/uL (4.0-10.0)
[2018-12-09] MEDS: SENOKOT S TAB PO SCH ×2 (10:29→20:04)
[2018-12-09] MEDS: SPIRONOLACTONE 25 MG TAB PO SCH (10:30)
[2018-12-09] MEDS: ASPIRIN 81 MG ENTERIC TAB PO SCH (10:30)
[2018-12-09] MEDS: guaiFENesin ER 600 MG TAB PO SCH ×2 (10:30→20:03)
[2018-12-09] MEDS: ALLOPURINOL 300 MG TAB PO SCH (10:30)
--- NOTE | 2018-12-09 10:30 | REP ---
Chest two views HISTORY: Pneumonia Comparison: 12/08/2018 Linear densities are present in the right lower lobe consistent with atelectasis unchanged compared to the previous study. Patchy density is present in the left lower lobe consistent with atelectasis or infiltrate that is increased compared to the previous study. The cardiac silhouette is enlarged. The pulmonary vasculature is normal in appearance. There are old bilateral rib fractures. There is an old compression fracture of a lower thoracic vertebral body. The bony structure is osteopenic. IMPRESSION: 1. Right lower lobe atelectasis unchanged compared to the previous study. 2. Left lower lobe atelectasis or infiltrate increased compared to the previous study. 3. Cardiomegaly. Electronically Signed by Everardo Laurent MD 12/09/2018 10:21 A
[2018-12-09] MEDS: ENOXAPARIN 30 MG/0.3 ML SYR (J1650) SC SCH (10:31)
--- NOTE | 2018-12-09 12:39 | IPNPDOC ---
Subjective Date Seen The patient was seen on 12/09/18. Subjective Chief Complaint/HPI She was comfortable, afebrile. Offers no new complaints General: Denies: ROS Unobtainable, Chills, Night Sweats, Fatigue, Malaise, Normal Appetite, Other Symptoms Constitutional: Denies: Chills, Fever, Malaise, Night Sweats, Weakness, Fatigue, Weight Loss, Lethargy, Other Eyes: Denies: Pain, Vision change, Conjunctivae inflammation, Eyelid inflammation, Redness, Other ENT: Denies: Head Aches, Ear Pain, Dysphagia, Sinus Congestion, Post Nasal Drip, Sore Throat, Epistaxis, Other Symptoms Skin: Denies: Rash, Lesions, Jaundice, Bruising, Itching, Dry, Breakdown, Nail Changes, Other Pulmonary: Denies: Dyspnea, Cough, Pleuritic Chest Pain, Other Symptoms Cardiovascular: Denies: Chest Pain, Palpitations, Orthopnea, Paroxysmal Noc. Dyspnea, Edema, Lt Headedness, Other Symptoms Gastrointestinal: Denies: Nausea, Vomiting, Abdominal Pain, Diarrhea, Constipation, Melena, Hematochezia, Other Symptoms Neurological: Denies: Weakness, Numbness, Incoordination, Change in speech, Confusion, Seizures, Other Symptoms Objective Physical Examination General Exam: Positive: Alert, Cooperative, No Acute Distress Eye Exam: Positive: PERRLA, EOMI ENT Exam: Positive: Atraumatic, Mucous membr. moist/pink, Other ENT (hard of hearing) Neck Exam: Positive: Supple Chest Exam: Positive: Clear to auscultation; Negative: Rales, Rhonchi, Wheezing Heart Exam: Positive: Irregular Rhythm (rate controlled); Negative: Gallops, Murmurs, Rubs Telemetry: Positive: Atrial fibrillation Extremity Exam: Positive: Normal pulses; Negative: Clubbing, Cyanosis, Edema Skin Exam: Positive: Breakdown (small multiple less than 1 cm ulcers on both legs), Other skin issue (Bilateral stasis dermatitis) Neuro Exam: Positive: Normal Speech, Normal Tone, Sensation Intact Psych Exam: Positive: Mental status NL, Memory Intact, Oriented x 3 Assessment /Plan Problems (1) Atrial fibrillation with RVR (2) Pneumonia Status: Acute (3) ARF (acute renal failure) Status: Acute Plan/VTE VTE Prophylaxis Ordered?: Yes Plan In summary, Hospital day 14 for this 88yo female admitted with fever, cough due to multilobal pneumonia, MRSA bacteremia, asymptomatic VRE UTI. She had brief episode of afib rvr and started on digoxin , aggressively diuresed for CHF . ID consulted and recommended vanc until 12/09. Patient had relapse with incease WBC several days after stopping azith,rocephin. medications resumed as below with improvement of leukocytosis. 1) MRSA bacteremia- repeat cultures negative - ID consulted, continue with vancomycin IV - end date 12/09/18; trough therapeutic. - echo no vegetations -high decision making with monitoring of vancomycin to avoid ATN or kidney injury; -WBC count is 11,000, but chest x-ray shows slight elevation in infiltrate, we will repeat labs in a.m. and was stable, then we will discharge her home 2) asymptomatic VRE UTI - present on admission; - denies any urinary symptoms - UCx +VRE, 25,000 CFU- not treated at this time. ID consulted. 3) Afib/RVR - rate now controlled. - digoxin started during hospitalization due to persistent tachycardia. this has resolved and digoxin discontinue as heart rate trending lower. - continue metroprolol tartrate and adjusting dose for rate control - ASA for anti-coagulation as per home regimen 4) CAP - presumed bacterial with underlying chronic lung fibrosis; this is NOT hospital acquired pneumonia but I believe the pneumonia still present from admission when rocephin and azithromycin treated for 11/23-11/26; restarted cefepime(day 5) and azithromycin (day 3). if WBC normalizes tomorrow, consider change cefepime to keflex for 6 more days and change IV azith to po for total 5 days. continue nebs, mucinex and accapella. 5) Generalized pain with osteoporosis and osteoarthritis - Chronic T 10 compression fracture, controlled with tylenol 3 - Chronic hip fracture with non ambulation Prescription written for hospital bed for home use to alleviate pain from body positioning, elevate head of bed to avoid aspiration, prevent contractures (non ambulatory) and to avoid further respiratory infection. Her medical conditions making a hospital bed medically necessary include: CHF, Afib,immobility due to non repairable hip fracture, pneumonia (requiring head of bed elevaton), severe arthritis and hip fracture requires variable height feature, to assist in getting out of bed for pivoting to use commode 6) CKD stage 3 - stable 7) Chronic Systolic and Diastolic chf - no acute exacerbation; currenlty euvolemic - hold bumex, hold spironolactone for the past 2 days because of hyponatremia. off IVF. monitor. consider restarting at lower dose bumex tomorrow based on labs and exam. 8) Gout - continue allopurinol. 9) Hyperlipidemia - continue Zetia. 10) Under weight with severe protein calorie malnutrition. - severe with BMI of 18, bi-temporal wasting 11) immobility - history of unrepaired right hip fracture 5 years ago which has restricted her mobility - continue PT VS, I&O, 24H, Fishbone Vital Signs/I&O Vital Signs Date Time Temp Pulse Resp B/P (MAP) Pulse Ox O2 Delivery O2 Flow Rate FiO2 12/09/18 12:27 18 12/09/18 10:30 76 138/62 12/09/18 06:00 97.6 94 I&O- Last 24 Hours up to 6 AM 12/09/18 06:00 Intake Total 460 ml Balance 460 ml Laboratory Data 24H LABS Laboratory Tests 2 12/08/18 17:24: Nucleated Red Blood Cells % (auto) 0.0, C-Reactive Protein, Quantitative 2.93H 12/09/18 09:57: Nucleated Red Blood Cells % (auto) 0.0 CBC/BMP Laboratory Tests 12/08/18 17:24 Red Blood Count 3.90 L, Mean Corpuscular Volume 85.4, Mean Corpuscular Hemoglobin 24.6 L, Mean Corpuscular Hemoglobin Concent 28.8 L, Red Cell Distribution Width 18.8 H 12/09/18 09:57 Red Blood Count 3.85 L, Mean Corpuscular Volume 86.8, Mean Corpuscular Hemoglobin 25.7 L, Mean Corpuscular Hemoglobin Concent 29.6 L, Red Cell Distribution Width 19.1 H SAIGE WOODALL MD Dec 09, 2018 12:39
[2018-12-09 14:00] VITALS: BP 120/59
[2018-12-09] MEDS: EZETIMIBE 10 MG TAB (ZETIA) PO SCH (20:03)
[2018-12-09] MEDS: FOLIC ACID 1 MG TAB PO SCH (20:03)
[2018-12-09 22:00] VITALS: BP 135/63
[2018-12-10] MEDS: METOPROLOL TART 25 MG TABLET PO SCH ×3 (02:01→09:59)
[2018-12-10] MEDS: ACETAMINOPH W/CODEINE #3 TAB UD PO PRN ×2 (02:02→08:41)
[2018-12-10 06:00] VITALS: BP 123/64
[2018-12-10 06:23] LABS: HEMATOCRIT 30.2 % (36.0-47.0); HEMOGLOBIN 8.8 g/dl (12.0-15.5); MEAN CORPUSCULAR HEMOGLOBIN 24.6 pg (27.0-33.0); MEAN CORPUSCULAR HGB CONC 29.1 g/dl (32.0-36.5); MEAN CORPUSCULAR VOLUME 84.6 fl (80.0-96.0); PLATELET COUNT, AUTOMATED 330 10^3/uL (150-450); RED BLOOD COUNT 3.57 10^6/uL (4.00-5.40); WHITE BLOOD COUNT 9.2 10^3/uL (4.0-10.0)
[2018-12-10 06:45] LABS: ALT/SGPT 10 U/L (12-78); BILIRUBIN,TOTAL 0.3 MG/DL (0.2-1.0); BLOOD UREA NITROGEN 26 MG/DL (7-18); CALCIUM LEVEL 9.1 MG/DL (8.8-10.2); CARBON DIOXIDE LEVEL 31 MEQ/L (21-32); CHLORIDE LEVEL 105 MEQ/L (98-107); CREATININE FOR GFR 0.84 MG/DL (0.55-1.30); GLOMERULAR FILTRATION RATE > 60.0 (>32); GLUCOSE, FASTING 149 MG/DL (70-100); POTASSIUM SERUM 4.4 MEQ/L (3.5-5.1); SODIUM LEVEL 139 MEQ/L (136-145); TOTAL PROTEIN 6.8 GM/DL (6.4-8.2)
[2018-12-10] MEDS: IPRATROPIUM 0.5MG/ALBUTEROL 2.5MG INH SOL UD 3ML (DUONEB)(J7620) NEB SCH ×2 (07:07)
--- NOTE | 2018-12-10 08:32 | REP ---
Oral chest x-ray: Single view. History: Pneumonia. I Comparison chest x-ray December 09, 2018. Findings: On today's chest x-ray there is a large clothing or gown or blanket artifact substantially diminishing imaging quality across the chest. There is an area of discoid atelectasis and/or fibrosis again noted in the right base. Opacification and/or pleural fluid is again noted in the left base. There are old rib fractures visible bilaterally. No definite new infiltrate. Electronically Signed by Arthur Winchester MD 12/10/2018 08:23 A
[2018-12-10] MEDS: ASPIRIN 81 MG ENTERIC TAB PO SCH (08:41)
[2018-12-10] MEDS: guaiFENesin ER 600 MG TAB PO SCH (08:42)
[2018-12-10] MEDS: SENOKOT S TAB PO SCH (08:42)
[2018-12-10] MEDS: ALLOPURINOL 300 MG TAB PO SCH (08:42)
[2018-12-10] MEDS: ENOXAPARIN 30 MG/0.3 ML SYR (J1650) SC SCH (08:42)
[2018-12-10] MEDS: SPIRONOLACTONE 25 MG TAB PO SCH (08:42)
[2018-12-10 09:59] VITALS: BP 118/62
[2018-12-10] MEDS ORDERED: ACET-716 PO (10:13)
--- NOTE | 2018-12-10 10:24 | DS.PDOC ---
Discharge Summary General Date of Admission November 23, 2018 at 21:12 Date of Discharge 12/10/2018 Attending Physician: SAIGE WOODALL MD Discharge Summary PROCEDURES PERFORMED DURING STAY: None. ADMITTING DIAGNOSES: 1. MRSA bacteremia, urine VRE A. fib with RVR. DISCHARGE DIAGNOSES: 1. MRSA bacteremia, urine VRE, atrial fibrillation with a rapid ventricular response, community-acquired pneumonia, CKD, acute on chronic systolic and diastolic heart failure, immobility. COMPLICATIONS/CHIEF COMPLAINT: Atrial Fibrillation With Rvr,Pneumonia. HISTORY OF PRESENT ILLNESS: 88yo female admitted with fever, cough due to multilobal pneumonia, MRSA bacteremia, asymptomatic VRE UTI. She had brief episode of afib rvr and started on digoxin , aggressively diuresed for CHF . ID consulted and recommended vanc until 12/09. Patient had relapse with incease WBC several days after stopping azith,rocephin. medications resumed as below with improvement of leukocytosis.. HOSPITAL COURSE: 1) MRSA bacteremia- repeat cultures negative - ID consulted, continue with vancomycin IV - end date 12/09/18; trough therapeutic. - echo no vegetations -high decision making with monitoring of vancomycin to avoid ATN or kidney injury; -WBC count is 11,000, but chest x-ray shows slight elevation in infiltrate, we will repeat labs in a.m. and was stable, then we will discharge her home 2) asymptomatic VRE UTI - present on admission; - denies any urinary symptoms - UCx +VRE, 25,000 CFU- not treated at this time. ID consulted. 3) Afib/RVR - rate now controlled. - digoxin started during hospitalization due to persistent tachycardia. this has resolved and digoxin discontinue as heart rate trending lower. - continue metroprolol tartrate and adjusting dose for rate control - ASA for anti-coagulation as per home regimen 4) CAP - presumed bacterial with underlying chronic lung fibrosis; this is NOT hospital acquired pneumonia but I believe the pneumonia still present from admission when rocephin and azithromycin treated for 11/23-11/26; restarted cefepime(day 5) and azithromycin (day 3). if WBC normalizes tomorrow, consider change cefepime to keflex for 6 more days and change IV azith to po for total 5 days. continue nebs, mucinex and accapella. 5) Generalized pain with osteoporosis and osteoarthritis - Chronic T 10 compression fracture, controlled with tylenol 3 - Chronic hip fracture with non ambulation Prescription written for hospital bed for home use to alleviate pain from body positioning, elevate head of bed to avoid aspiration, prevent contractures (non ambulatory) and to avoid further respiratory infection. Her medical conditions making a hospital bed medically necessary include: CHF, Afib,immobility due to non repairable hip fracture, pneumonia (requiring head of bed elevaton), severe arthritis and hip fracture requires variable height feature, to assist in getting out of bed for pivoting to use commode 6) CKD stage 3 - stable 7) Chronic Systolic and Diastolic chf - no acute exacerbation; currenlty euvolemic - hold bumex, hold spironolactone for the past 2 days because of hyponatremia. off IVF. monitor. consider restarting at lower dose bumex tomorrow based on labs and exam. 8) Gout - continue allopurinol. 9) Hyperlipidemia - continue Zetia. 10) Under weight with severe protein calorie malnutrition. - severe with BMI of 18, bi-temporal wasting 11) immobility - history of unrepaired right hip fracture 5 years ago which has restricted her mobility - continue PT. DISCHARGE MEDICATIONS: Please see below. ALLERGIES: Please see below. PHYSICAL EXAMINATION ON DISCHARGE: VITAL SIGNS: Please see below. GENERAL: Within normal limits HEENT: PERRLA NECK: Supple CARDIOVASCULAR EXAMINATION: S1, S2, regular RESPIRATORY EXAMINATION: Clear to A&P ABDOMINAL EXAMINATION: 9 EXTREMITIES: No clubbing, cyanosis, edema SKIN: Normal NEUROLOGICAL EXAMINATION: Normal PSYCHIATRIC EXAMINATION: Normal LABORATORY DATA: Please see below. IMAGING: [As per EMR PROGNOSIS: Good ACTIVITY: As tolerated. DIET: As tolerated DISCHARGE PLAN: Discharge home with 24-hour home care DISPOSITION: . Home DISCHARGE INSTRUCTIONS: 1. As above. ITEMS TO FOLLOWUP ON ON OUTPATIENT: 1. As above. DISCHARGE CONDITION: Stable. TIME SPENT ON DISCHARGE: 35 minutes. Vital Signs/I&Os Vital Signs Date Time Temp Pulse Resp B/P (MAP) Pulse Ox O2 Delivery O2 Flow Rate FiO2 12/10/18 09:59 83 118/62 12/10/18 09:11 18 12/10/18 06:00 97.2 97 I&O- Last 24 Hours up to 6 AM 12/10/18 06:00 Intake Total 1280 ml Balance 1280 ml Laboratory Data Labs 24H Laboratory Tests 2 12/10/18 05:21: Nucleated Red Blood Cells % (auto) 0.0, Anion Gap 3L, Glomerular Filtration Rate > 60.0, Blood Urea Nitrogen 26H, Creatinine 0.84, Sodium Level 139, Potassium Level 4.4, Chloride Level 105, Carbon Dioxide Level 31, Calcium Level 9.1, Aspartate Amino Transf (AST/SGOT) 9, Alanine Aminotransferase (ALT/SGPT) 10L, Alkaline Phosphatase 86, Total Bilirubin 0.3, Total Protein 6.8, Albumin 2.0L, Albumin/Globulin Ratio 0.42L CBC/BMP Laboratory Tests 12/10/18 05:21 Red Blood Count 3.57 L, Mean Corpuscular Volume 84.6, Mean Corpuscular Hemoglobin 24.6 L, Mean Corpuscular Hemoglobin Concent 29.1 L, Red Cell Distribution Width 19.0 H, Calcium Level 9.1, Aspartate Amino Transf (AST/SGOT) 9, Alanine Aminotransferase (ALT/SGPT) 10 L, Alkaline Phosphatase 86, Total Bilirubin 0.3, Total Protein 6.8, Albumin 2.0 L Discharge Medications Scheduled Allopurinol (Zyloprim) 300 Mg Tab, 300 MG PO DAILY, (Reported) Aspirin (Aspirin EC) 81 Mg Tab, 81 MG PO DAILY, (Reported) Clobetasol Propionate (Clobetasol Emollient 0.05% Crm) 60 Gm Cream..g., 1 DOSE TOP BID, (Reported) USES ON LEGS: TWO WEEKS ON; TWO WEEKS OFF, ONE MORE WEEK ON Ezetimibe (Zetia) 10 Mg Tab, 10 MG PO QHS, (Reported) Folic Acid (Folic Acid) 1 Mg Tab, 1 MG PO QHS, (Reported) Metoprolol Tartrate (Metoprolol Tartrate) 100 Mg Tablet, 50 MG PO DAILY, (Reported) Spironolactone (Spironolactone) 25 Mg Tab, 25 MG PO DAILY, (Reported) Scheduled PRN Acetaminophen with Codeine (Acetaminophen-Cod #3 Tablet) 1 Each Tab, 1 TAB PO BID PRN for PAIN Colchicine (Colchicine) 0.6 Mg Tab, 0.6 MG PO DAILY PRN for GOUT, (Reported) Lanolin Alcohol/Mo/W.pet/Bush (Eucerin Creme) 454 Gm Cream..g., 1 DOSE TOP BID PRN for DRY SKIN, (Reported) USES ON ARMS AND LEGS NEEDED Allergies Coded Allergies: No Known Allergies (Unverified , 05/11/18) SAIGE WOODALL MD Dec 10, 2018 10:24
== END 2018-12-10 11:55 | disposition home health service (06) | DRG 193 ==
LOC: EDUNIT# 15:15 → EDBD 15:15 → M ED 15:15 → M ED INP 21:12 → M MSPAV 23:55
PROVIDERS: ADMIT Internal Medicine Nephrology; ATTEND Internal Medicine
DX: J15.9 Unspecified bacterial pneumonia (principal); E43 Unspecified severe protein-calorie malnutrition; I50.43 Acute on chronic combined systolic (congestive) and diastolic (congestive) heart failure; Z68.1 Body mass index [BMI] 19.9 or less, adult; R78.81 Bacteremia; N39.0 Urinary tract infection, site not specified; E87.1 Hypo-osmolality and hyponatremia; E87.2 Acidosis; N17.9 Acute kidney failure, unspecified; I48.91 Unspecified atrial fibrillation; B95.62 Methicillin resistant Staphylococcus aureus infection as the cause of diseases classified elsewhere; M19.90 Unspecified osteoarthritis, unspecified site; M81.0 Age-related osteoporosis without current pathological fracture; N18.3 Chronic kidney disease, stage 3 (moderate); E78.5 Hyperlipidemia, unspecified; M10.9 Gout, unspecified; Z79.899 Other long term (current) drug therapy; Z79.82 Long term (current) use of aspirin; E11.9 Type 2 diabetes mellitus without complications; G89.29 Other chronic pain; I87.2 Venous insufficiency (chronic) (peripheral); E86.0 Dehydration

== ENCOUNTER 2018-12-15 17:39 | Emergency (ER) | payer MEDICARE, OTHER ==
[~2018-12-15] VITALS: Ht 157.5 cm; Wt 50.0 kg
[~2018-12-15 17:39] MED LIST changes: +CLOB5CR TOP; +EUCECRE8 TOP; +MOBI4TAB PO
[2018-12-15] MEDS ORDERED: ACETAMINOPH W/CODEINE #3 TAB UD PO ONE (18:30)
[2018-12-15] MEDS ORDERED: TYLETAB14 PO (18:53)
[2018-12-15 19:38] VITALS: BP 115/73
--- NOTE | 2018-12-16 07:39 | REP ---
REASON: Chest pain. COMPARISON: Multiple, the latest 12/10/2018. AP and lateral views were obtained. The technique utilized in obtaining the radiograph has magnified the cardiac silhouette and accentuated the interstitial markings. Bilateral lower lung field discoid opacities are present, stable on the right but with improved visualization of the left lung base compared to multiple priors. The pleural angles are sharp. The heart is enlarged and accentuated by technique. Interstitial fibrosis noted status quo. Chronic change is seen involving the imaged osseous structures, status quo. There is thoracic kyphosis. IMPRESSION: Bibasilar opacities but actually improved on the left and with a persistent residual. The right basilar opacity is essentially unchanged. Other findings as described above. Electronically Signed by Simon Kincaid DO 12/16/2018 10:18 A
== END 2018-12-15 20:19 | disposition home or self-care (01) ==
LOC: EDBD 17:39 → EDSEX 17:39 → M ED 17:39
DX: G89.4 Chronic pain syndrome (principal); I48.91 Unspecified atrial fibrillation; I50.9 Heart failure, unspecified; E11.9 Type 2 diabetes mellitus without complications; E78.5 Hyperlipidemia, unspecified; Z79.82 Long term (current) use of aspirin; Z79.891 Long term (current) use of opiate analgesic; Z79.899 Other long term (current) drug therapy; Z86.14 Personal history of Methicillin resistant Staphylococcus aureus infection

== ENCOUNTER 2018-12-29 12:08 | Inpatient (IN) | payer MEDICARE, OTHER ==
[~2018-12-29] VITALS: Ht 154.9 cm; Wt 50.5 kg
[~2018-12-29 12:08] MED LIST changes: -GLIM1TAB PO; +GLIM1TAB4 PO; -GLIM2TAB PO; +GLIM2TAB4 PO; +TYLETAB14 PO; +ZETI10TA16 PO; -ZETI10TA30 PO
[2018-12-29] MEDS ORDERED: METOPROLOL 5 MG/5 ML VIAL IV STA ×2 (12:36→13:43)
[2018-12-29] MEDS ORDERED: METOPROLOL TART 50 MG TAB PO ONE (12:45)
[2018-12-29] MEDS ORDERED: ACETAMINOPH W/CODEINE #3 TAB UD PO ONE (13:00)
[2018-12-29 13:03] LABS: BASO # 0.1 10^3/uL (0.0-0.2); BASO % 0.3 % (0.0-1.0); EOS % 0.2 % (0.0-3.0); HEMATOCRIT 38.2 % (36.0-47.0); HEMOGLOBIN 11.2 g/dl (12.0-15.5); LYMPH # 0.8 10^3/uL (1.5-4.5); MEAN CORPUSCULAR HEMOGLOBIN 25.1 pg (27.0-33.0); MEAN CORPUSCULAR HGB CONC 29.3 g/dl (32.0-36.5); MEAN CORPUSCULAR VOLUME 85.5 fl (80.0-96.0); MONO # 0.9 10^3/uL (0.0-0.8); MONO % 4.8 % (0.0-5.0); PLATELET COUNT, AUTOMATED 402 10^3/uL (150-450); RED BLOOD COUNT 4.47 10^6/uL (4.00-5.40); WHITE BLOOD COUNT 18.9 10^3/uL (4.0-10.0)
[2018-12-29 13:14] LABS: INR 1.15; PROTHROMBIN TIME 14.4 SECONDS (11.8-14.0)
--- NOTE | 2018-12-29 13:45 | REP ---
Clinical: Chest pain. Technique: PA and lateral. Comparison: 12/15/2018. Findings: Stable cardiomegaly and diffuse chronic interstitial changes are appreciated. Superimposed right lower lobe atelectasis cannot be excluded. No definite acute effusion. No pneumothorax. Skeletal structures demonstrate osteopenia and degenerative changes. Impression: Chronic stable changes. Subtle superimposed right lower lobe atelectasis/early infiltrate cannot be excluded. Electronically Signed by Luis F Cannon MD 12/29/2018 01:37 P
[2018-12-29 14:00] LABS: ALBUMIN 2.3 GM/DL (3.2-5.2); ALT/SGPT 18 U/L (12-78); BILIRUBIN,DIRECT < 0.1 MG/DL (0.0-0.2); BILIRUBIN,TOTAL 0.5 MG/DL (0.2-1.0); BLOOD UREA NITROGEN 30 MG/DL (7-18); CALCIUM LEVEL 9.8 MG/DL (8.8-10.2); CARBON DIOXIDE LEVEL 27 MEQ/L (21-32); CHLORIDE LEVEL 102 MEQ/L (98-107); CK-MB VALUE MASS < 1.0 NG/ML (<3.6); CPK CREATINE PHOSPHOKINASE 55 U/L (26-192); CREATININE FOR GFR 0.76 MG/DL (0.55-1.30); FREE T4 1.65 NG/DL (0.76-1.46); GLOMERULAR FILTRATION RATE > 60.0 (>32); GLUCOSE, FASTING 198 MG/DL (70-100); MAGNESIUM LEVEL 2.1 MG/DL (1.8-2.4); MB/CK RELATIVE INDEX 1.82 (< OR =4); PHOSPHORUS LEVEL 2.5 MG/DL (2.5-4.9); POTASSIUM SERUM 4.9 MEQ/L (3.5-5.1); SODIUM LEVEL 136 MEQ/L (136-145); TOTAL PROTEIN 8.3 GM/DL (6.4-8.2); TROPONIN I < 0.02 NG/ML (< 0.10)
[2018-12-29] MEDS ORDERED: NS 500 ML IV ONE (14:15)
[2018-12-29] MEDS ORDERED: PIPERACILLIN/TAZOBACTAM SOD 3.375 GM in D5W MINI-BAG PLUS 50 ML IV ONE (15:00)
[2018-12-29] MEDS ORDERED: DIGOXIN 0.25 MG TAB PO STA (15:19)
[2018-12-29] MEDS ORDERED: TYLETAB14 PO (15:19)
[2018-12-29] MEDS ORDERED: GLUCOSE 4 GM CHEW TABLET PO PRN (15:30)
[2018-12-29] MEDS ORDERED: GLUCAGON FOR INJ 1 MG VIAL (J1610) SC PRN (15:30)
[2018-12-29] MEDS ORDERED: DEXTROSE 50% 50 ML SYRINGE IV PRN (15:30)
[2018-12-29] MEDS ORDERED: cefTRIAXone SOD 1 GM in D5W MINI-BAG PLUS 50 ML IV SCH (15:30)
[2018-12-29] MEDS ORDERED: AZITHROMYCIN INJ 500 MG, VIAL MATE ADAPTER 1 EACH in D5W 250 ML IV SCH (15:30)
--- NOTE | 2018-12-29 15:52 | HPEPDOC ---
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 fib (on ASA, not full anticoagulation), DLP, NIDDM2, CKD3, Chronic T10 compression fracture / arthritis / osteoporosis, unrepaired R hip fracture (2013) who presented to the ER after she was found to have an elevated heart rate. Patient is a poor historian and daughter was present at the bedside to provide details. Daughter has noted that on Friday. Patients heart rate was elevated and he had contacted EMS services for further evaluation. However, patient had refused to go to the emergency room. Patient continued to experience episodes of elevated heart rate and they contacted their expansion envelope maker hand, Dr. Saravia who advised the patient to go to the emergency room for further evaluation. Emergency room, patient was found to have an elevated heart rate and was in atrial fibrillation with rapid ventricular response. She is given a dose of metoprolol tartrate 50 mg PO and metoprolol IV 5 mg x 2 dose. Patients heart rate had improved from 160 to 120. Patients systolic blood pressure did slowly decline to the 90s. Patient currently remains asymptomatic without any lightheadedness, dizziness, chest pain, shortness of breath or palpitations. Patient was recently at the hospital for MRSA pneumonia and VRE UTI from 11/23 to 11/09. Patient denies any headache, nausea, vomiting, abdominal pain, constipation or any current diarrhea. She does report 4 episodes of diarrhea on Friday. Patient denies any urinary discomfort. Denies any fevers at home. Does report some chills associated with sweats and does report a cough with clear/ cummins sputum. Patient reports her appetite is normal and denies any weight changes. Home Medications Scheduled Allopurinol (Zyloprim) 300 Mg Tab, 300 MG PO DAILY, (Reported) Aspirin (Aspirin EC) 81 Mg Tab, 81 MG PO DAILY, (Reported) Clobetasol Propionate (Clobetasol Emollient 0.05% Crm) 60 Gm Cream..g., 1 DOSE TOP BID, (Reported) USES ON LEGS Ezetimibe (Zetia) 10 Mg Tab, 10 MG PO QHS, (Reported) Folic Acid (Folic Acid) 1 Mg Tab, 1 MG PO QHS, (Reported) Metoprolol Tartrate (Metoprolol Tartrate) 100 Mg Tablet, 50 MG PO DAILY, (Reported) Spironolactone (Spironolactone) 25 Mg Tab, 25 MG PO DAILY, (Reported) Scheduled PRN Acetaminophen with Codeine (Tylenol with Codeine #3 Tablet) 1 Each Tablet, 2 TABS PO Q6H PRN for PAIN, (Reported) Colchicine (Colchicine) 0.6 Mg Tab, 0.6 MG PO DAILY PRN for GOUT, (Reported) Lanolin Alcohol/Mo/W.pet/[place] (Eucerin Creme) 454 Gm Cream..g., 1 DOSE TOP BID PRN for DRY SKIN, (Reported) USES ON ARMS AND LEGS NEEDED Allergies Coded Allergies: No Known Allergies (Unverified , 05/11/18) Past Medical History Medical History Systolic / Diastolic CHF (EF: 50%), A. 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 Review of Systems Other systems 10 point review of systems complete, all negative otherwise stated in HPI Vital Signs - Vitals: BP 118/62, HR 83, RR 18, Sat 97%RA, Temp 97.2F - General: Lying in bed, No acute distress, Speaking in full sentences, AAOx3 - HEENT: NC, AT, PERRLA - CVS: IrIr, +S1S2 - Lungs: Fair air entry bilaterally, No appreciable wheezing / rales / rhonchi - Abdomen: Soft, Non-distended, Non-tender - Extremities: No lower extremity edema, No calf tenderness - Neuro: No focal motor or sensory deficit - Skin: No visible rashes Laboratory Data Labs 24H Laboratory Tests 2 12/29/18 12:47: Immature Granulocyte % (Auto) 0.7, White Blood Count 18.9H, Red Blood Count 4.47, Hemoglobin 11.2L, Hematocrit 38.2, Mean Corpuscular Volume 85.5, Mean Corpuscular Hemoglobin 25.1L, Mean Corpuscular Hemoglobin Concent 29.3L, Red Cell Distribution Width 17.7H, Platelet Count 402, Neutrophils (%) (Auto) 90.0H, Lymphocytes (%) (Auto) 4.0L, Monocytes (%) (Auto) 4.8, Eosinophils (%) (Auto) 0.2, Basophils (%) (Auto) 0.3, Neutrophils # (Auto) 17.0H, Lymphocytes # (Auto) 0.8L, Monocytes # (Auto) 0.9H, Eosinophils # (Auto) 0.0, Basophils # (Auto) 0.1, Nucleated Red Blood Cells % (auto) 0.0, Prothrombin Time 14.4H, Prothromb Time International Ratio 1.15, Activated Partial Thromboplast Time 26.0, Anion Gap 7L, Glomerular Filtration Rate > 60.0, Calcium Level 9.8, Phosphorus Level 2.5, Magnesium Level 2.1, Aspartate Amino Transf (AST/SGOT) 24, Alanine May otransferase (ALT/SGPT) 18, Alkaline Phosphatase 107, Total Bilirubin 0.5, Direct Bilirubin < 0.1, Total Creatine Kinase 55, Creatine Kinase MB < 1.0, Creatine Kinase MB Relative Index 1.82, Troponin I < 0.02, Total Protein 8.3H, Albumin 2.3L, Albumin/Globulin Ratio 0.38L, Thyroid Stimulating Hormone (TSH) 0.330L, Free Thyroxine 1.65H CBC/BMP Laboratory Tests 12/29/18 12:47 Red Blood Count 4.47, Mean Corpuscular Volume 85.5, Mean Corpuscular Hemoglobin 25.1 L, Mean Corpuscular Hemoglobin Concent 29.3 L, Red Cell Distribution Width 17.7 H, Neutrophils (%) (Auto) 90.0 H, Lymphocytes (%) (Auto) 4.0 L, Monocytes (%) (Auto) 4.8, Eosinophils (%) (Auto) 0.2, Basophils (%) (Auto) 0.3, Neutrophils # (Auto) 17.0 H, Lymphocytes # (Auto) 0.8 L, Monocytes # (Auto) 0.9 H, Eosinophils # (Auto) 0.0, Basophils # (Auto) 0.1 Microbiology Microbiology 12/29/18 Blood Culture, Received Pending Plan / VTE VTE Prophylaxis Ordered?: Yes Plan Plan Atrial fibrillation with RVR - Patient has reported noncompliance with medications, has reported missing a few doses of medications on Friday, Friday and today - Patient remains hemodynamically stable - Troponin 1 set is negative - EKG noted to be in atrial fibrillation with RVR - s/p Metoprolol tartrate 50mg PO x 1, Metoprolol IV 5mg x2 - Will start Digoxin and c/w Metoprolol tartrate 25mg PO q6h Cough with cummins colored sputum - possibly / pneumonia - Patient had reported a mild cough which cummins/ clear colored sputum - Remains afebrile - Leukocytosis - CXR 12/29: Chronic stable changes. Subtle superimposed right lower lobe atelectasis/early infiltrate cannot be excluded. - Will check sputum culture, Respiratory panel and procalcitonin - Will start Ceftriaxone and Azithromycin Chronic Systolic / Diastolic CHF (EF: 50%) - No evidence of exacerbation - c/w Spironolactone A. fib - See above - c/w ASA 81; not full anticoagulation DLP - c/w Ezetimbie, ASA NIDDM2 - Will start ISS CKD3 - Cr appears to be better than baseline of 1.0-1.1 Gout - c/w Allopurinol and Colchicine Chronic T10 compression fracture / arthritis / osteoporosis - c/w pain regimen from outpatient Unrepaired R hip fracture (2013) - Not a surgical candidate - Uses a wheel chair at baseline - Has been working with PT as an outpatient DVT prophylaxis - Will start Heparin HENRRY PICKETT MD Dec 29, 2018 15:52
[2018-12-29] MEDS ORDERED: VANCOMYCIN HCL 750 MG, VIAL MATE ADAPTER 1 EACH in D5W 250 ML IV SCH (16:00)
[2018-12-29] MEDS ORDERED: COLCHICINE 0.6 MG TAB PO PRN (16:00)
[2018-12-29] MEDS ORDERED: VANCOMYCIN HCL 1,000 MG, VIAL MATE ADAPTER 1 EACH in D5W 250 ML IV ONE ×2 (16:00→17:00)
[2018-12-29 16:55] LABS: CK-MB VALUE MASS < 1.0 NG/ML (<3.6); CPK CREATINE PHOSPHOKINASE 37 U/L (26-192); TROPONIN I < 0.02 NG/ML (< 0.10)
[2018-12-29 17:05] VITALS: BP 118/70
[2018-12-29] MEDS: METOPROLOL TART 25 MG TABLET PO SCH ×2 (17:32→23:25)
[2018-12-29] MEDS: allopurinoL 300 MG TAB PO SCH (17:33)
[2018-12-29] MEDS: ASPIRIN 81 MG ENTERIC TAB PO SCH (17:33)
[2018-12-29] MEDS: SPIRONOLACTONE 25 MG TAB PO SCH (17:36)
[2018-12-29 18:12] VITALS: BP 118/70
[2018-12-29] MEDS: ACETAMINOPH W/CODEINE #3 TAB UD PO PRN (18:52)
[2018-12-29] MEDS: HumaLOG INSULIN (NovoLOG) PER UNIT SC SCH ×2 (18:52→21:00)
[2018-12-29 20:00] VITALS: BP 96/50
--- NOTE | 2018-12-29 20:40 | PHACANCOPD ---
PHARMACY VANCOMYCIN DOSING Pt Demographics Demographics Patient Age:88 , Weight:50.000 , Gender: female Adjusted Body Weight Date: 12/29/18, Adjusted Body Weight: [47.8] Kg Events Past 24 Hours Events Past 24 Hours: NO: Dialysis, Diuretic Therapy, Change in CrCl, Fever, Elevation in WBC, Pending Diagnostics, Pending Procedures, Other Vancomycin Vancomycin indication: HAP Vancomycin Target Ranges: 15-20 mcg/ml Vancomycin Load Y/N: Yes Load Dose Date Time Vancomycin Load Dose: 1G IV VANCO Date: 12/29/18 Time: 1800 Vancomycin Dose Date: 12/29/18. Current Vancomycin Dose: 750MG IV VANCO Q24H STARTING AT 0700 Intermittent Dosing?: No Labs Labs Vital Signs Date Time Temp Pulse Resp B/P (MAP) Pulse Ox O2 Delivery O2 Flow Rate FiO2 12/29/18 18:52 18 12/29/18 18:12 18 118/70 (86) 100 Room Air 12/29/18 17:32 140 118/70 12/29/18 17:05 97.7 120 18 118/70 (86) 100 12/29/18 16:30 113 18 91/51 (64) 98 Room Air 12/29/18 16:15 130 18 90/52 (65) 97 Room Air 12/29/18 16:00 117 18 100/58 (72) 98 Room Air 12/29/18 15:51 16 12/29/18 15:48 135 12/29/18 15:45 136 18 116/76 (89) 98 Room Air 12/29/18 15:30 131 18 101/73 (82) 98 Room Air 12/29/18 15:15 127 18 101/58 (72) 98 Room Air 12/29/18 15:00 128 18 92/53 (66) 99 Room Air 12/29/18 14:38 116 97 Room Air 12/29/18 14:31 101/55 (70) 12/29/18 14:23 123 99 Room Air 12/29/18 14:15 116/94 (101) 12/29/18 14:10 111/89 (96) 12/29/18 14:08 110 119/75 (90) 98 Room Air 12/29/18 14:07 94/64 (74) 12/29/18 14:06 88/60 (69) 12/29/18 14:05 108/67 (81) 12/29/18 14:04 119/56 (77) 12/29/18 14:03 119/66 (83) 12/29/18 14:01 128/74 (92) 12/29/18 14:01 121 128/60 12/29/18 14:00 128/60 (82) 12/29/18 12:59 165 131/76 12/29/18 12:55 16 12/29/18 12:54 164 141/109 12/29/18 12:44 98.8 136 22 139/96 (110) Room Air 12/29/18 12:21 Room Air Laboratory Tests 12/29/18 12:47: White Blood Count 18.9H, Red Blood Count 4.47, Hemoglobin 11.2L, Hematocrit 38.2, Mean Corpuscular Volume 85.5, Mean Corpuscular Hemoglobin 25.1L, Mean Corpuscular Hemoglobin Concent 29.3L, Red Cell Distribution Width 17.7H, Platelet Count 402, Neutrophils (%) (Auto) 90.0H, Lymphocytes (%) (Auto) 4.0L, Monocytes (%) (Auto) 4.8, Eosinophils (%) (Auto) 0.2, Basophils (%) (Auto) 0.3, Neutrophils # (Auto) 17.0H, Lymphocytes # (Auto) 0.8L, Monocytes # (Auto) 0.9H, Eosinophils # (Auto) 0.0, Basophils # (Auto) 0.1, Immature Granulocyte % (Auto) 0.7, Nucleated Red Blood Cells % (auto) 0.0, Prothrombin Time 14.4H, Prothromb Time International Ratio 1.15, Activated Partial Thromboplast Time 26.0, Sodium Level 136, Potassium Level 4.9, Chloride Level 102, Carbon Dioxide Level 27, Anion Gap 7L, Blood Urea Nitrogen 30H, Creatinine 0.76, Glomerular Filtration Rate > 60.0, Fasting Glucose 198H, Calcium Level 9.8, Phosphorus Level 2.5, Magnesium Level 2.1, Aspartate Amino Transf (AST/SGOT) 24, Alanine Aminotransferase (ALT/SGPT) 18, Alkaline Phosphatase 107, Total Bilirubin 0.5, Direct Bilirubin < 0.1, Total Creatine Kinase 55, Creatine Kinase MB < 1.0, Creatine Kinase MB Relative Index 1.82, Troponin I < 0.02, Total Protein 8.3H, Albumin 2.3L, Albumin/Globulin Ratio 0.38L, Thyroid Stimulating Hormone (TSH) 0.330L, Free Thyroxine 1.65H 12/29/18 16:02: Total Creatine Kinase 37, Creatine Kinase MB < 1.0, Creatine Kinase MB Relative Index 2.70, Troponin I < 0.02 12/29/18 17:40: Procalcitonin [Pending] 12/29/18 17:44: Bedside Glucose (Misc Panel) 195H Current Medications Medications (Trade) Dose Ordered Sig/Debi Route PRN Reason Start Time Stop Time Status Last Admin Dose Admin Acetaminophen/ Codeine Phosphate (Tylenol/Codeine #3 Tablet) 2 ea Q6H PRN PO PAIN 12/29/18 16:00 12/29/18 18:52 2 EA Allopurinol (Zyloprim) 300 mg DAILY PO 12/29/18 09:00 12/29/18 17:33 300 MG Aspirin (Ecotrin) 81 mg DAILY PO 12/29/18 09:00 12/29/18 17:33 81 MG Insulin Human Lispro (HumaLOG INSULIN) SEE PROTOCOL TABLE AC SC 12/29/18 17:30 12/29/18 18:52 4 UNITS Metoprolol Tartrate (Lopressor) 25 mg Q6H PO 12/29/18 18:00 12/29/18 17:32 25 MG Spironolactone (Aldactone) 25 mg DAILY PO 12/29/18 09:00 12/29/18 17:36 25 MG Micro Microbiology 12/29/18 Blood Culture, Received Pending 12/29/18 Blood Culture, Received Pending 12/29/18 MRSA Screen, Received Pending 12/29/18 Respiratory Virus Panel (PCR) (RADHA), Received Pending Creatinine Clearance Date:12/29/18. Creatinine Clearance: [CALCULATED 30 USING ABW AND ROUNDING SCR TO 1]. Pending Labs BC PENDING, MRSA SCREEN PENDING Assessment and Plan Maintaining Current Dose?: Yes Reason for dose change: No Dose Change Pharmacist Note Pharmacist Note Date: 12/29/18. Pharmacist note: Patient presented to ED department with elevated heart rate and was admitted with diagnosis of HAP due to recent admission in October. Patient received vancomycin during past admission as well. Patient's calculated CrCl is 30. Blood culture and MRSA screen are pending. Patient has been started on Zosyn 3.375g IV q6h and vancomycin consult was requested. Based on patient's current renal function and weight I ordered patient to have 1G load @1800 followed by 750mg IV vancomycin q24h. I scheduled a trough before the 3rd dose @0600. I will continue to monitor patient and adjust dosage as needed. [facility] Dec 29, 2018 20:40
[2018-12-29] MEDS ORDERED: DIGOXIN 0.125 MG TAB PO ONE (21:30)
[2018-12-29] MEDS: FOLIC ACID 1 MG TAB PO SCH (21:39)
[2018-12-29] MEDS: EZETIMIBE 10 MG TAB (ZETIA) PO SCH (21:39)
[2018-12-29] MEDS: CLOBETASOL PROPIONATE EMOLLIENT 0.05% CR 60 GM TOP SCH (21:39)
[2018-12-29] MEDS: HEPARIN SOD (PORCINE) 5000 UNITS/ML VIAL SC SCH (21:40)
[2018-12-29] MEDS: PIPERACILLIN/TAZOBACTAM SOD 3.375 GM in D5W MINI-BAG PLUS 50 ML IV SCH (21:41)
[2018-12-29 23:59] VITALS: BP 100/56
[2018-12-30] MEDS: PIPERACILLIN/TAZOBACTAM SOD 3.375 GM in D5W MINI-BAG PLUS 50 ML IV SCH ×4 (03:57→22:42)
[2018-12-30] MEDS: ACETAMINOPH W/CODEINE #3 TAB UD PO PRN ×2 (03:57→17:32)
[2018-12-30 04:00] VITALS: BP 110/60
[2018-12-30 05:45] LABS: BASO # 0.1 10^3/uL (0.0-0.2); BASO % 0.5 % (0.0-1.0); EOS # 0.1 10^3/uL (0.0-0.50); EOS % 0.6 % (0.0-3.0); HEMATOCRIT 33.5 % (36.0-47.0); HEMOGLOBIN 9.7 g/dl (12.0-15.5); LYMPH # 0.7 10^3/uL (1.5-4.5); LYMPH % 4.8 % (24.0-44.0); MEAN CORPUSCULAR HEMOGLOBIN 25.1 pg (27.0-33.0); MEAN CORPUSCULAR VOLUME 86.6 fl (80.0-96.0); MONO # 0.9 10^3/uL (0.0-0.8); MONO % 6.9 % (0.0-5.0); NEUTROPHILS # 11.7 10^3/uL (1.8-7.7); NEUTROPHILS % 85.7 % (36.0-66.0); PLATELET COUNT, AUTOMATED 341 10^3/uL (150-450); RED BLOOD COUNT 3.87 10^6/uL (4.00-5.40); WHITE BLOOD COUNT 13.6 10^3/uL (4.0-10.0)
[2018-12-30] MEDS: METOPROLOL TART 25 MG TABLET PO SCH ×2 (06:12→13:01)
[2018-12-30] MEDS ORDERED: VANCOMYCIN HCL 750 MG, VIAL MATE ADAPTER 1 EACH in D5W 250 ML IV SCH (07:00)
[2018-12-30 07:09] LABS: CALCIUM LEVEL 9.7 MG/DL (8.8-10.2); CREATININE FOR GFR 0.98 MG/DL (0.55-1.30); DIGOXIN LEVEL 1.5 NG/ML (0.5-2.0); GLOMERULAR FILTRATION RATE 57.3 (>32); MAGNESIUM LEVEL 1.9 MG/DL (1.8-2.4); POTASSIUM SERUM 4.3 MEQ/L (3.5-5.1)
--- NOTE | 2018-12-30 07:23 | ECGEPIP ---
[facility] Test Date: 2018-12-29 Pat Name: KATT PENN Department: Room: [place] [address] Gender: Female Capacity Management Specialist: ANALI : 1930 Requested By: HENRRY PICKETT Order Number: [id number] Reading MD: Alphonse Saravia Measurements Intervals [place] Rate: 118 P: MI: -1 QRS: QRSD: 84 T: QT: 294 QTc: 413 Interpretive Statements ATRIAL FIBRILLATION WITH RAPID VENTRICULAR RESPONSE LEFT AXIS DEVIATION LOW QRS VOLTAGE IN EXTREMITY LEADS NON-SPECIFIC STT ABNORMALITIES NO CHANGE COMPARED TO 11/27/18 Electronically Signed on 12-30-2018 7:23:25 EDT by Alphonse Saravia
[2018-12-30 08:00] VITALS: BP 122/63
[2018-12-30] MEDS: ASPIRIN 81 MG ENTERIC TAB PO SCH (09:44)
[2018-12-30] MEDS: allopurinoL 300 MG TAB PO SCH (09:44)
[2018-12-30] MEDS: SPIRONOLACTONE 25 MG TAB PO SCH (09:44)
[2018-12-30] MEDS: HEPARIN SOD (PORCINE) 5000 UNITS/ML VIAL SC SCH ×2 (09:45→20:29)
[2018-12-30] MEDS: CLOBETASOL PROPIONATE EMOLLIENT 0.05% CR 60 GM TOP SCH ×2 (09:46→20:30)
[2018-12-30] MEDS: HumaLOG INSULIN (NovoLOG) PER UNIT SC SCH ×4 (09:46→20:28)
--- NOTE | 2018-12-30 11:43 | IPNPDOC ---
Text Note Date of Service The patient was seen on 12/30/18. NOTE Subjective: Patient is an 88-year-old female with a PMHx of Systolic / Diastolic CHF (EF: 50%), A. fib (on ASA, not full anticoagulation), DLP, NIDDM2, CKD3, Chronic T10 compression fracture / arthritis / osteoporosis, unrepaired R hip fracture (2013) who presented to the ER after she was found to have an elevated heart rate. In the emergency room, patient was found to have atrial fibrillation with rapid ventricular response and was admitted to the hospital service for further evaluation and treatment. Of note, patient was recently admitted to the hospital for MRSA pneumonia and VRE UTI from 11/23 to 11/09. Imaging repeated the emergency room on this admission had revealed possibility of a developing infiltrate. Patient was seen and examined at the bedside. Patient reports that her heart rate is better controlled. She denies chest pain, shortness of breath or palpitations. Patient does report a cough but is unable to expectorate much sputum. She denies nausea, vomiting, abdominal pain, constipation, diarrhea, or urinary discomfort. Objective: Vitals (See below) General: Lying in bed, no acute distress, comfortable, AAOx3 HEENT: NC, AT CVS: IrIr, +S1S2 Lungs: Fair air entry b/l, no appreciable wheezing, rhonchi or rales Abdomen: Soft, nondistended, without tenderness Extremities: - Edema, - Calf tenderness Assessment and plan: Atrial fibrillation with RVR - Patient has reported noncompliance with medications, has reported missing a few doses of medications on Friday, Friday and today - Patient remains hemodynamically stable - Ray appears to be well controlled this morning - Troponin 2 set is negative - EKG noted to be in atrial fibrillation with RVR - s/p Metoprolol tartrate 50mg PO x 1, Metoprolol IV 5mg x2; s/p Digoxin loading - c/w Metoprolol tartrate 25mg PO q6h - Will transition to metoprolol succinate on a twice a day dosing Cough with cummins colored sputum - possibly 2/2 healthcare associated pneumonia - Patient had reported a mild cough which cummins/ clear colored sputum - Remains afebrile - Leukocytosis improving - CXR 12/29: Chronic stable changes. Subtle superimposed right lower lobe atelectasis/early infiltrate cannot be excluded. - Respiratory panel negative; Procalcitonin pending, Sputum culture pending - c/w Vancomycin and Zosyn (Day #2) Chronic Systolic / Diastolic CHF (EF: 50%) - No evidence of exacerbation - c/w Spironolactone A. fib - See above - c/w ASA 81; not full anticoagulation DLP - c/w Ezetimbie, ASA NIDDM2 - c/w ISS CKD3 - Cr appears to be better than baseline of 1.0-1.1 Gout - c/w Allopurinol and Colchicine Chronic T10 compression fracture / arthritis / osteoporosis - c/w pain regimen from outpatient Unrepaired R hip fracture (2013) - Not a surgical candidate - Uses a wheel chair at baseline - Has been working with PT as an outpatient DVT prophylaxis - c/w Heparin Disposition: - If procalcitonin is negative, will discontinue antibiotic therapy - Anticipated discharge within 24 hours VS,Fishbone, I+O VS, Fishbone, I+O Laboratory Tests 12/29/18 12:47 Red Blood Count 4.47, Mean Corpuscular Volume 85.5, Mean Corpuscular Hemoglobin 25.1 L, Mean Corpuscular Hemoglobin Concent 29.3 L, Red Cell Distribution Width 17.7 H, Neutrophils (%) (Auto) 90.0 H, Lymphocytes (%) (Auto) 4.0 L, Monocytes (%) (Auto) 4.8, Eosinophils (%) (Auto) 0.2, Basophils (%) (Auto) 0.3, Neutrophils # (Auto) 17.0 H, Lymphocytes # (Auto) 0.8 L, Monocytes # (Auto) 0.9 H, Eosinophils # (Auto) 0.0, Basophils # (Auto) 0.1 12/30/18 05:32 Red Blood Count 3.87 L, Mean Corpuscular Volume 86.6, Mean Corpuscular Hemoglobin 25.1 L, Mean Corpuscular Hemoglobin Concent 29.0 L, Red Cell Distribution Width 17.7 H, Neutrophils (%) (Auto) 85.7 H, Lymphocytes (%) (Auto) 4.8 L, Monocytes (%) (Auto) 6.9 H, Eosinophils (%) (Auto) 0.6, Basophils (%) (Auto) 0.5, Neutrophils # (Auto) 11.7 H, Lymphocytes # (Auto) 0.7 L, Monocytes # (Auto) 0.9 H, Eosinophils # (Auto) 0.1, Basophils # (Auto) 0.1, Calcium Level 9.7 Vital Signs Date Time Temp Pulse Resp B/P (MAP) Pulse Ox O2 Delivery O2 Flow Rate FiO2 12/30/18 08:00 97.5 55 18 122/63 (82) 100 12/29/18 18:12 Room Air I&O- Last 24 Hours up to 6 AM 12/30/18 06:00 Intake Total 870 ml Output Total 0 ml Balance 870 ml HENRRY PICKETT MD Dec 30, 2018 11:43
[2018-12-30 12:00] VITALS: BP 124/62
[2018-12-30 16:00] VITALS: BP 105/67
[2018-12-30 20:00] VITALS: BP 90/53
[2018-12-30] MEDS: METOPROLOL SUCC (TopROL XL) 50MG **XL** TAB PO SCH (20:29)
[2018-12-30] MEDS: EZETIMIBE 10 MG TAB (ZETIA) PO SCH (20:29)
[2018-12-30] MEDS: FOLIC ACID 1 MG TAB PO SCH (20:29)
[2018-12-30 23:59] VITALS: BP 108/64
[2018-12-31] MEDS: ACETAMINOPH W/CODEINE #3 TAB UD PO PRN ×4 (00:07→19:22)
[2018-12-31] MEDS: PIPERACILLIN/TAZOBACTAM SOD 3.375 GM in D5W MINI-BAG PLUS 50 ML IV SCH (03:46)
[2018-12-31 04:00] VITALS: BP 119/59
[2018-12-31 06:16] LABS: BASO # 0.1 10^3/uL (0.0-0.2); BASO % 0.7 % (0.0-1.0); EOS # 0.1 10^3/uL (0.0-0.50); EOS % 0.9 % (0.0-3.0); HEMATOCRIT 36.4 % (36.0-47.0); HEMOGLOBIN 10.6 g/dl (12.0-15.5); LYMPH # 0.8 10^3/uL (1.5-4.5); LYMPH % 7.4 % (24.0-44.0); MEAN CORPUSCULAR HEMOGLOBIN 24.6 pg (27.0-33.0); MEAN CORPUSCULAR HGB CONC 29.1 g/dl (32.0-36.5); MEAN CORPUSCULAR VOLUME 84.5 fl (80.0-96.0); MONO # 0.7 10^3/uL (0.0-0.8); MONO % 6.2 % (0.0-5.0); NEUTROPHILS # 8.7 10^3/uL (1.8-7.7); NEUTROPHILS % 82.7 % (36.0-66.0); PLATELET COUNT, AUTOMATED 342 10^3/uL (150-450); RED BLOOD COUNT 4.31 10^6/uL (4.00-5.40); WHITE BLOOD COUNT 10.5 10^3/uL (4.0-10.0)
[2018-12-31 06:24] LABS: BLOOD UREA NITROGEN 28 MG/DL (7-18); CALCIUM LEVEL 9.4 MG/DL (8.8-10.2); CARBON DIOXIDE LEVEL 28 MEQ/L (21-32); CHLORIDE LEVEL 102 MEQ/L (98-107); CREATININE FOR GFR 0.86 MG/DL (0.55-1.30); GLOMERULAR FILTRATION RATE > 60.0 (>32); GLUCOSE, FASTING 141 MG/DL (70-100); POTASSIUM SERUM 4.7 MEQ/L (3.5-5.1); SODIUM LEVEL 139 MEQ/L (136-145)
--- NOTE | 2018-12-31 06:34 | PHACANCOPD ---
PHARMACY VANCOMYCIN DOSING Pt Demographics Demographics Patient Age:88 , Weight:49.700 , Gender: female Adjusted Body Weight Date: 12/29/18, Adjusted Body Weight: [47.8] Kg Events Past 24 Hours Events Past 24 Hours: NO: Dialysis, Diuretic Therapy, Change in CrCl, Fever, Elevation in WBC, Pending Diagnostics, Pending Procedures, Other Vancomycin Vancomycin indication: HAP Vancomycin Target Ranges: 15-20 mcg/ml Vancomycin Load Y/N: Yes Load Dose Date Time Vancomycin Load Dose: 1G IV VANCO Date: 12/29/18 Time: 1800 Vancomycin Dose Date: 12/31/18. Current Vancomycin Dose: 1000mg q24h Intermittent Dosing?: No Labs Labs Item Value Date Time White Blood Count 10.5 10^3/uL H 12/31/18 0546 Glomerular Filtration Rate > 60.0 12/31/18 0546 Creatinine 0.86 MG/DL 12/31/18 0546 Blood Urea Nitrogen 28 MG/DL H 12/31/18 0546 Vancomycin Level Trough 12.0 UG/ML 12/31/18 0546 Vital Signs Label Value Date Time Patient Temperature 96.7 degrees F 12/31/18 0400 Temperature Source Temporal 12/31/18 0400 Micro Microbiology 12/30/18 Blood Culture, Received Pending 12/30/18 Blood Culture, Received Pending 12/29/18 Blood Culture - Preliminary, Resulted 12/29/18 Blood Culture - Preliminary, Resulted No growth after 24 hours . All specim... 12/29/18 MRSA Screen, Received Pending 12/29/18 Respiratory Virus Panel (PCR) (RADHA) - Final, Complete Creatinine Clearance Date:12/29/18. Creatinine Clearance: [CALCULATED 30 USING ABW AND ROUNDING SCR TO 1]. Pending Labs Trough 07-05 @0700 Assessment and Plan Maintaining Current Dose?: No Reason for dose change: Trough too low Pharmacist Note Pharmacist Note Date: 12/29/18. Pharmacist note:Trough of 12 is below target range. Dose increased to 1000mg q24h. Will continue to monitor and make adjustments as needed. [facility] Dec 31, 2018 06:34
[2018-12-31] MEDS ORDERED: VANCOMYCIN HCL 750 MG, VIAL MATE ADAPTER 1 EACH in D5W 250 ML IV SCH ×2 (07:00→10:30)
[2018-12-31 08:00] VITALS: BP_SYST 129; BP_SYST 98; BP_DIAS 58; BP_DIAS 69
[2018-12-31] MEDS ORDERED: VANCOMYCIN HCL 1,000 MG, VIAL MATE ADAPTER 1 EACH in D5W 250 ML IV SCH ×2 (08:00→11:00)
[2018-12-31] MEDS ORDERED: METO1TAB7 PO (08:24)
[2018-12-31] MEDS ORDERED: BACT800T5 PO (08:27)
--- NOTE | 2018-12-31 08:49 | REP ---
Clinical: Cough. Technique: PA and lateral. Comparison: 12/29/2018, 05/11/2018 Findings: Mediastinum and cardiac silhouette are stable. Cardiomegaly again noted. Diffuse chronic-appearing fibroatelectatic changes are appreciated and superimposed basilar atelectasis cannot be excluded. No definite effusion. No pneumothorax. Skeletal structures demonstrate stable osteopenia and degenerative changes. Impression: Diffuse chronic changes and cardiomegaly. Subtle superimposed acute atelectasis cannot be excluded. Electronically Signed by Luis F Cannon MD 12/31/2018 08:41 A
[2018-12-31] MEDS: METOPROLOL SUCC (TopROL XL) 50MG **XL** TAB PO SCH ×2 (09:00→20:44)
[2018-12-31] MEDS: SPIRONOLACTONE 25 MG TAB PO SCH (09:00)
[2018-12-31] MEDS: ASPIRIN 81 MG ENTERIC TAB PO SCH (09:46)
[2018-12-31] MEDS: HEPARIN SOD (PORCINE) 5000 UNITS/ML VIAL SC SCH ×2 (09:46→20:44)
[2018-12-31] MEDS: CLOBETASOL PROPIONATE EMOLLIENT 0.05% CR 60 GM TOP SCH ×2 (09:47→20:45)
[2018-12-31] MEDS: allopurinoL 300 MG TAB PO SCH (09:47)
[2018-12-31] MEDS: HumaLOG INSULIN (NovoLOG) PER UNIT SC SCH ×4 (09:48→20:45)
--- NOTE | 2018-12-31 10:25 | ECGEPIP ---
[facility] - ED Test Date: 2018-12-29 Pat Name: KATT PENN Department: Room: [place] [address] Gender: Female Service Dismantler: LASHAE : [id number] Requested By: Alicia Vidal Order Number: [id number] Reading MD: Kadeem Castillo Measurements Intervals [place] Rate: 154 P: SD: -1 QRS: QRSD: 74 T: QT: 246 QTc: 394 Interpretive Statements ATRIAL FIBRILLATION WITH RAPID VENTRICULAR RESPONSE MARKED LEFT AXIS DEVIATION LOW QRS VOLTAGE IN EXTREMITY LEADS PATTERN CONSISTENT WITH PULMONARY DISEASE MODERATE ST DEPRESSION RATE CHANGE COMPARED TO 11/27/18 Electronically Signed on 12-31-2018 10:25:06 EDT by Kadeem Castillo
--- NOTE | 2018-12-31 10:34 | IPNPDOC ---
Text Note Date of Service The patient was seen on 12/31/18. NOTE Subjective: Patient is an 88-year-old female with a PMHx of Systolic / Diastolic CHF (EF: 50%), A. fib (on ASA, not full anticoagulation), DLP, NIDDM2, CKD3, Chronic T10 compression fracture / arthritis / osteoporosis, unrepaired R hip fracture (2013) who presented to the ER after she was found to have an elevated heart rate. In the emergency room, patient was found to have atrial fibrillation with rapid ventricular response and was admitted to the hospital service for further evaluation and treatment. Of note, patient was recently admitted to the hospital for MRSA pneumonia and VRE UTI from 11/23 to 11/09. Imaging repeated the emergency room on this admission had revealed possibility of a developing infiltrate. Patient was seen and examined at the bedside. Patient with that she's feeling relatively well. She denies any difficulty breathing. She does report a mild cough without any significant expectoration. Denies any chest pain or palpita tions. Denies nausea, vomiting, abdominal pain, constipation or diarrhea. Objective: Vitals (See below) General: Lying in bed, no acute distress, comfortable, AAOx3 HEENT: NC, AT CVS: IrIr, +S1S2 Lungs: Fair entry, remains fair bilaterally, without any auscultated rhonchi, rales or wheezing Abdomen: Soft, remains nondistended without tenderness Extremities: No visible, edema, - Calf tenderness Assessment and plan: Atrial fibrillation with RVR - Patient has reported noncompliance with medications, has reported missing a few doses of medications on Friday, Friday and today - Patient remains hemodynamically stable - Rate appears to be well controlled - Troponin 2 set is negative - EKG noted to be in atrial fibrillation with RVR - s/p Metoprolol tartrate 50mg PO x 1, Metoprolol IV 5mg x2; s/p Digoxin loading - c/w metoprolol succinate 50 BID; s/p metoprolol tartrate Cough with cummins colored sputum - possibly 2/2 atelectasis, less likely 2/2 healthcare associated pneumonia - Patient had reported a mild cough which cummins/ clear colored sputum - Remains afebrile - Leukocytosis improving - CXR 12/29: Chronic stable changes. Subtle superimposed right lower lobe atelectasis/early infiltrate cannot be excluded. - Respiratory panel negative; Procalcitonin pending, Sputum culture pending - c/w Vancomycin; Will DC Zosyn (Day #3) Positive blood cultures 2 of 2 bottles for Staph aureus - On prior admission, patient had a positive blood culture with MRSA; though, suspected to be secondary to pneumonia - Echocardiogram completed at that time was negative for any vegetations - Will repeat echocardiogram during this admission and strongly consider trasesophageal echocardiogram - Will consult infectious disease when available - Will c/w Vancomycin Chronic Systolic / Diastolic CHF (EF: 50%) - No evidence of exacerbation - c/w Spironolactone A. fib - See above - c/w ASA 81; not full anticoagulation DLP - c/w Ezetimibe, ASA NIDDM2 - c/w ISS CKD3 - Cr appears to be better than baseline of 1.0-1.1 Gout - c/w Allopurinol and Colchicine Chronic T10 compression fracture / arthritis / osteoporosis - c/w pain regimen from outpatient Unrepaired R hip fracture (2013) - Not a surgical candidate - Uses a wheel chair at baseline - Has been working with PT as an outpatient DVT prophylaxis - c/w Heparin Disposition: - Procalcitonin has been negative; however given prior positive blood cultures for MRSA and repeat cultures for Staph aureus, will complete endocarditis workup VS,Kasia, I+O VS, Kasia, I+O Laboratory Tests 12/31/18 05:46 Red Blood Count 4.31, Mean Corpuscular Volume 84.5, Mean Corpuscular Hemoglobin 24.6 L, Mean Corpuscular Hemoglobin Concent 29.1 L, Red Cell Distribution Width 17.6 H, Neutrophils (%) (Auto) 82.7 H, Lymphocytes (%) (Auto) 7.4 L, Monocytes (%) (Auto) 6.2 H, Eosinophils (%) (Auto) 0.9, Basophils (%) (Auto) 0.7, Neutrophils # (Auto) 8.7 H, Lymphocytes # (Auto) 0.8 L, Monocytes # (Auto) 0.7, Eosinophils # (Auto) 0.1, Basophils # (Auto) 0.1, Calcium Level 9.4 Vital Signs Date Time Temp Pulse Resp B/P (MAP) Pulse Ox O2 Delivery O2 Flow Rate FiO2 12/31/18 09:00 101 98/58 12/31/18 08:00 97.8 18 100 12/29/18 18:12 Room Air I&O- Last 24 Hours up to 6 AM 12/31/18 05:59 Intake Total 700 ml Output Total 0 ml Balance 700 ml HENRRY PICKETT MD Dec 31, 2018 10:34
[2018-12-31] MEDS ORDERED: DIGOXIN 0.125 MG TAB PO STA (11:39)
[2018-12-31 12:00] VITALS: BP 108/66
--- NOTE | 2018-12-31 14:06 | ECHO ---
TWO-DIMENSIONAL ECHOCARDIOGRAM REPORT DATE: 12/31/2018 REFERRING PHYSICIAN: Morales Pacheco MD INDICATION: Sepsis. HEIGHT: 153 cm. WEIGHT: 50 kg. MEASUREMENTS: IVS 0.9 LV 5.2 LVPW 1.0 LA 4.9 Aorta 2.6 RV 3.2 Mitral E wave velocity 110 E prime septal 9.5 E prime lateral 9.6 Left atrial volume index 82 mL per meter square IVC 2.1 FINDINGS: This study is of fair technical quality. The patient is in atrial fibrillation with ventricular rate between 100 and 125 bpm. Left ventricle is normal size. I estimate approximately moderate left ventricle (LV) systolic dysfunction. Computer calculated left ventricular ejection fraction (LVEF) was 47% which sounds about slightly optimistic, I would estimate ejection fraction (EF) around 40-45%. Right ventricle appears at least mildly enlarged. There is severe biatrial enlargement, left atrium is larger than right. Aortic valve is sclerotic but mobility seems to be preserved. There are heavy degenerative abnormalities of mitral valve with thickening of mitral leaflet and prominent mitral annular calcifications. Mobility seems preserved. Tricuspid valve appears normal. Pulmonic valve also appears normal. No pericardial effusion is noted. Inferior vena cava is dilated. Aortic root appears normal. Aortic arch and abdominal aorta were not well seen. Doppler interrogation of aortic valve reveals no significant stenosis and mild insufficiency. There is at least moderate if not severe mitral insufficiency. There is probably moderately severe tricuspid insufficiency. Calculated pulmonary artery pressure is mid 40s or higher corresponding to moderate pulmonary hypertension. Evaluation of diastolic function is inconclusive due to underlying atrial fibrillation. CONCLUSIONS: 1. Study is of fair technical quality. 2. Normal LV size with approximately moderate left ventricular systolic dysfunction that is global in nature. 3. Dilated right ventricle. 4. Severe biatrial enlargement. 5. Prominent aortic sclerosis but no significant stenosis and only mild insufficiency. 6. At least moderate mitral insufficiency. 7. At least moderate tricuspid insufficiency. 8. High central venous pressure. 9. Likely moderate pulmonary hypertension. COMMENT: Subacute bacterial endocarditis (SBE) prophylaxis is not recommended. 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
[2018-12-31 14:33] LABS: DIGOXIN LEVEL 1.1 NG/ML (0.5-2.0)
[2018-12-31 16:00] VITALS: BP 118/58
[2018-12-31 20:00] VITALS: BP 115/56
[2018-12-31] MEDS: EZETIMIBE 10 MG TAB (ZETIA) PO SCH (20:44)
[2018-12-31] MEDS: FOLIC ACID 1 MG TAB PO SCH (20:44)
[2018-12-31 23:59] VITALS: BP 109/64
[2019-01-01 04:00] VITALS: BP 110/70
[2019-01-01 07:10] LABS: BASO # 0.1 10^3/uL (0.0-0.2); BASO % 0.6 % (0.0-1.0); EOS # 0.1 10^3/uL (0.0-0.50); HEMATOCRIT 32.2 % (36.0-47.0); HEMOGLOBIN 9.2 g/dl (12.0-15.5); LYMPH # 0.7 10^3/uL (1.5-4.5); LYMPH % 7.5 % (24.0-44.0); MEAN CORPUSCULAR HEMOGLOBIN 24.5 pg (27.0-33.0); MEAN CORPUSCULAR HGB CONC 28.6 g/dl (32.0-36.5); MEAN CORPUSCULAR VOLUME 85.9 fl (80.0-96.0); MONO # 0.5 10^3/uL (0.0-0.8); MONO % 4.9 % (0.0-5.0); NEUTROPHILS # 8.1 10^3/uL (1.8-7.7); NEUTROPHILS % 84.1 % (36.0-66.0); PLATELET COUNT, AUTOMATED 327 10^3/uL (150-450); RED BLOOD COUNT 3.75 10^6/uL (4.00-5.40); WHITE BLOOD COUNT 9.7 10^3/uL (4.0-10.0)
[2019-01-01 07:28] LABS: BLOOD UREA NITROGEN 24 MG/DL (7-18); CALCIUM LEVEL 9.1 MG/DL (8.8-10.2); CARBON DIOXIDE LEVEL 30 MEQ/L (21-32); CHLORIDE LEVEL 103 MEQ/L (98-107); CREATININE FOR GFR 0.66 MG/DL (0.55-1.30); GLOMERULAR FILTRATION RATE > 60.0 (>32); GLUCOSE, FASTING 170 MG/DL (70-100); POTASSIUM SERUM 4.3 MEQ/L (3.5-5.1); SODIUM LEVEL 138 MEQ/L (136-145)
[2019-01-01 08:00] VITALS: BP 118/64
[2019-01-01] MEDS: HumaLOG INSULIN (NovoLOG) PER UNIT SC SCH ×4 (08:59→21:00)
[2019-01-01] MEDS: allopurinoL 300 MG TAB PO SCH (09:00)
[2019-01-01] MEDS: DIGOXIN 0.125 MG TAB PO SCH (09:00)
[2019-01-01] MEDS: SPIRONOLACTONE 25 MG TAB PO SCH (09:00)
[2019-01-01] MEDS: HEPARIN SOD (PORCINE) 5000 UNITS/ML VIAL SC SCH ×2 (09:00→21:40)
[2019-01-01] MEDS: ASPIRIN 81 MG ENTERIC TAB PO SCH (09:01)
[2019-01-01] MEDS: CLOBETASOL PROPIONATE EMOLLIENT 0.05% CR 60 GM TOP SCH ×2 (09:01→21:41)
[2019-01-01] MEDS: METOPROLOL SUCC (TopROL XL) 50MG **XL** TAB PO SCH ×2 (09:01→21:40)
[2019-01-01] MEDS: VANCOMYCIN HCL 1,000 MG, VIAL MATE ADAPTER 1 EACH in D5W 250 ML IV SCH (09:03)
--- NOTE | 2019-01-01 10:11 | IPNPDOC ---
Text Note Date of Service The patient was seen on 01/01/19. NOTE Subjective: Patient is an 88-year-old female with a PMHx of Systolic / Diastolic CHF (EF: 50%), A. fib (on ASA, not full anticoagulation), DLP, NIDDM2, CKD3, Chronic T10 compression fracture / arthritis / osteoporosis, unrepaired R hip fracture (2013) who presented to the ER after she was found to have an elevated heart rate. In the emergency room, patient was found to have atrial fibrillation with rapid ventricular response and was admitted to the hospital service for further evaluation and treatment. Of note, patient was recently admitted to the hospital for MRSA pneumonia and VRE UTI from 11/23 to 11/09. Imaging repeated the emergency room on this admission had revealed possibility of a developing infiltrate. Patient was seen and examined at the bedside. Currently patient has no new complaints. Denies any CP, SOB or palpitations. Denies any N/V, abdominal pain, constipation or diarrhea. Objective: Vitals (See below) General: Lying in bed, no acute distress, comfortable, AAOx3 HEENT: NC, AT CVS: IrIr, +S1S2 Lungs: Fair entry, no appreciable rhonchi / rales / wheezing Abdomen: Soft, ND without tenderness Extremities: No visible LE edema, - Calf tenderness Assessment and plan: Atrial fibrillation with RVR - Patient has reported noncompliance with medications, has reported missing a few doses of medications on Friday, Friday and today - Patient remains hemodynamically stable - Rate appears to be well controlled - Troponin 2 set is negative; Digoxin level therapeutic - EKG noted to be in atrial fibrillation with RVR - c/w metoprolol succinate 50 BID; and Digoxin Cough with cummins colored sputum - possibly 2/2 atelectasis, less likely 2/2 healthcare associated pneumonia - Patient had reported a mild cough which cummins/ clear colored sputum - Remains afebrile - Leukocytosis improving - CXR 12/29: Chronic stable changes. Subtle superimposed right lower lobe atelectasis/early infiltrate cannot be excluded. - Respiratory panel negative; Procalcitonin pending, Sputum culture pending - c/w Vancomycin; Will DC Zosyn (Day #4) Positive blood cultures 2 of 2 bottles for MRSA - possibly 2/2 presumed endocarditis - On prior admission, patient had a positive blood culture with MRSA; though, suspected to be secondary to pneumonia - Blood cultures 12/29: MRSA - Blood cultures 12/30: Negative at 24 hours - Echocardiogram completed at that time was negative for any vegetations - Discussed with Cardiology about potential PRATIMA; however at this point it we will consider this a positive and avoid subjecting patient to another procedure - Risks and benefits of decision were discussed with family; currently patient and daughter have verbalized understanding - Will consult infectious disease when available - Will c/w Vancomycin Chronic Systolic / Diastolic CHF (EF: 50%) - No evidence of exacerbation - c/w Spironolactone A. fib - See above - c/w ASA 81; not full anticoagulation DLP - c/w Ezetimibe, ASA NIDDM2 - c/w ISS CKD3 - Cr appears to be better than baseline of 1.0-1.1 Gout - c/w Allopurinol and Colchicine Chronic T10 compression fracture / arthritis / osteoporosis - c/w pain regimen from outpatient Unrepaired R hip fracture (2013) - Not a surgical candidate - Uses a wheel chair at baseline - Has been working with PT as an outpatient DVT prophylaxis - c/w Heparin Disposition: - Will treat for presumed endocarditis - ID consult pending VS,Fishbone, I+O VS, Fishbone, I+O Laboratory Tests 01/01/19 06:52 Red Blood Count 3.75 L, Mean Corpuscular Volume 85.9, Mean Corpuscular Hemoglobin 24.5 L, Mean Corpuscular Hemoglobin Concent 28.6 L, Red Cell Distribution Width 17.4 H, Neutrophils (%) (Auto) 84.1 H, Lymphocytes (%) (Auto) 7.5 L, Monocytes (%) (Auto) 4.9, Eosinophils (%) (Auto) 1.0, Basophils (%) (Auto) 0.6, Neutrophils # (Auto) 8.1 H, Lymphocytes # (Auto) 0.7 L, Monocytes # (Auto) 0.5, Eosinophils # (Auto) 0.1, Basophils # (Auto) 0.1, Calcium Level 9.1 Vital Signs Date Time Temp Pulse Resp B/P (MAP) Pulse Ox O2 Delivery O2 Flow Rate FiO2 01/01/19 09:01 93 118/64 01/01/19 08:00 98.7 18 100 12/29/18 18:12 Room Air I&O- Last 24 Hours up to 6 AM 01/01/19 06:00 Intake Total 1140 ml Balance 1140 ml HENRRY PICKETT MD Jan 01, 2019 10:11
[2019-01-01] MEDS: ACETAMINOPH W/CODEINE #3 TAB UD PO PRN ×2 (10:59→17:43)
[2019-01-01 12:00] VITALS: BP 101/60
[2019-01-01 16:00] VITALS: BP 123/68
[2019-01-01 19:24] VITALS: BP 126/59
[2019-01-01] MEDS: EZETIMIBE 10 MG TAB (ZETIA) PO SCH (21:40)
[2019-01-01] MEDS: FOLIC ACID 1 MG TAB PO SCH (21:40)
[2019-01-02] VITALS: BP 152/71
[2019-01-02] MEDS: ACETAMINOPH W/CODEINE #3 TAB UD PO PRN ×3 (00:28→16:16)
[2019-01-02 04:00] VITALS: BP 120/59
[2019-01-02 05:44] LABS: BASO % 0.3 % (0.0-1.0); BLOOD UREA NITROGEN 25 MG/DL (7-18); CALCIUM LEVEL 9.5 MG/DL (8.8-10.2); CARBON DIOXIDE LEVEL 32 MEQ/L (21-32); CHLORIDE LEVEL 100 MEQ/L (98-107); CREATININE FOR GFR 0.77 MG/DL (0.55-1.30); EOS # 0.1 10^3/uL (0.0-0.50); EOS % 0.9 % (0.0-3.0); GLOMERULAR FILTRATION RATE > 60.0 (>32); GLUCOSE, FASTING 228 MG/DL (70-100); HEMATOCRIT 31.7 % (36.0-47.0); HEMOGLOBIN 9.4 g/dl (12.0-15.5); LYMPH # 0.8 10^3/uL (1.5-4.5); LYMPH % 6.6 % (24.0-44.0); MAGNESIUM LEVEL 1.9 MG/DL (1.8-2.4); MEAN CORPUSCULAR HEMOGLOBIN 24.5 pg (27.0-33.0); MEAN CORPUSCULAR HGB CONC 29.7 g/dl (32.0-36.5); MEAN CORPUSCULAR VOLUME 82.8 fl (80.0-96.0); MONO # 0.7 10^3/uL (0.0-0.8); MONO % 5.3 % (0.0-5.0); NEUTROPHILS # 10.3 10^3/uL (1.8-7.7); NEUTROPHILS % 84.7 % (36.0-66.0); PLATELET COUNT, AUTOMATED 333 10^3/uL (150-450); POTASSIUM SERUM 4.4 MEQ/L (3.5-5.1); RED BLOOD COUNT 3.83 10^6/uL (4.00-5.40); SODIUM LEVEL 137 MEQ/L (136-145); WHITE BLOOD COUNT 12.2 10^3/uL (4.0-10.0)
[2019-01-02 08:00] VITALS: BP 132/58
--- NOTE | 2019-01-02 09:42 | IPNPDOC ---
Text Note Date of Service The patient was seen on 01/02/19. NOTE Subjective: Patient is an 88-year-old female with a PMHx of Systolic / Diastolic CHF (EF: 50%), A. fib (on ASA, not full anticoagulation), DLP, NIDDM2, CKD3, Chronic T10 compression fracture / arthritis / osteoporosis, unrepaired R hip fracture (2013) who presented to the ER after she was found to have an elevated heart rate. In the emergency room, patient was found to have atrial fibrillation with rapid ventricular response and was admitted to the hospital service for further evaluation and treatment. Of note, patient was recently admitted to the hospital for MRSA pneumonia and VRE UTI from 11/23 to 11/09. Imaging repeated the emergency room on this admission had revealed possibility of a developing infiltrate. Patient was seen and examined at the bedside. Patient has no new complaints this morning. She reports that she does not experience chest pain, shortness breath or palpitations. She denies nausea, vomiting, abdominal pain. She does report that she had an episode of stool incontinence yesterday. Denies any watery stools. Denies any discomfort with urination. Objective: Vitals (See below) General: Lying in bed, no acute distress, comfortable, AAOx3 HEENT: NC, AT CVS: IrIr, +S1S2 Lungs: Air entry remains fair bilaterally without evidence of rhonchi, rales or wheezing Abdomen: Soft, nondistended and nontender Extremities: Lower extremities are free of any edema, - Calf tenderness Assessment and plan: Atrial fibrillation with RVR - Patient has reported noncompliance with medications, has reported missing a few doses of medications on Friday, Friday and today - Patient remains hemodynamically stable - Rate appears to be well controlled - Troponin 2 set is negative; Digoxin level therapeutic - EKG noted to be in atrial fibrillation with RVR - c/w metoprolol succinate 50 BID; and Digoxin Cough with cummins colored sputum - possibly 2/2 atelectasis, less likely 2/2 heal thcare associated pneumonia - Patient had reported a mild cough which cummins/ clear colored sputum - Remains afebrile - Leukocytosis improving - CXR 12/29: Chronic stable changes. Subtle superimposed right lower lobe atelectasis/early infiltrate cannot be excluded. - Respiratory panel negative; Procalcitonin pending, Sputum culture pending - c/w Vancomycin; Will DC Zosyn (Day #5) Positive blood cultures 2 of 2 bottles for gram positive; MRSA - possibly 2/2 presumed endocarditis; Staph epidermidis - On prior admission, patient had a positive blood culture with MRSA; though, suspected to be secondary to pneumonia - Blood cultures 7/2: MRSA and Staph Epidermidis - Blood cultures 7/3: Negative at 24 hours - Echocardiogram completed at that time was negative for any vegetations - Discussed with Cardiology about potential PRATIMA; however at this point it we will consider this a positive and avoid subjecting patient to another procedure - Risks and benefits of decision were discussed with family; currently patient and daughter have verbalized understanding - Will consult infectious disease when available - Will c/w Vancomycin Chronic Systolic / Diastolic CHF (EF: 50%) - No evidence of exacerbation - c/w Spironolactone A. fib - See above - c/w ASA 81; not full anticoagulation DLP - c/w Ezetimibe, ASA NIDDM2 - c/w ISS CKD3 - Cr appears to be better than baseline of 1.0-1.1 Gout - c/w Allopurinol and Colchicine Chronic T10 compression fracture / arthritis / osteoporosis - c/w pain regimen from outpatient Unrepaired R hip fracture (2013) - Not a surgical candidate - Uses a wheel chair at baseline - Has been working with PT as an outpatient DVT prophylaxis - c/w Heparin Disposition: - Will treat for presumed endocarditis - Will consult ID on Friday VS,Kasia, I+O VS, Kasia, I+O Laboratory Tests 01/02/19 05:12 Red Blood Count 3.83 L, Mean Corpuscular Volume 82.8, Mean Corpuscular Hemoglob in 24.5 L, Mean Corpuscular Hemoglobin Concent 29.7 L, Red Cell Distribution Width 17.6 H, Neutrophils (%) (Auto) 84.7 H, Lymphocytes (%) (Auto) 6.6 L, Monocytes (%) (Auto) 5.3 H, Eosinophils (%) (Auto) 0.9, Basophils (%) (Auto) 0.3, Neutrophils # (Auto) 10.3 H, Lymphocytes # (Auto) 0.8 L, Monocytes # (Auto) 0.7, Eosinophils # (Auto) 0.1, Basophils # (Auto) 0.0, Calcium Level 9.5 Vital Signs Date Time Temp Pulse Resp B/P (MAP) Pulse Ox O2 Delivery O2 Flow Rate FiO2 01/02/19 08:00 97.7 95 17 132/58 (82) 97 12/29/18 18:12 Room Air I&O- Last 24 Hours up to 6 AM 01/02/19 06:00 Intake Total 760 ml Balance 760 ml HENRRY PICKETT MD Jan 02, 2019 09:42
[2019-01-02] MEDS ORDERED: SLF 3 ML SYR IV PRN (09:45)
[2019-01-02] MEDS: METOPROLOL SUCC (TopROL XL) 50MG **XL** TAB PO SCH ×2 (10:38→21:28)
[2019-01-02] MEDS: DIGOXIN 0.125 MG TAB PO SCH (10:39)
[2019-01-02] MEDS: SPIRONOLACTONE 25 MG TAB PO SCH (10:39)
[2019-01-02] MEDS: ASPIRIN 81 MG ENTERIC TAB PO SCH (10:39)
[2019-01-02] MEDS: allopurinoL 300 MG TAB PO SCH (10:39)
[2019-01-02] MEDS: CLOBETASOL PROPIONATE EMOLLIENT 0.05% CR 60 GM TOP SCH ×2 (10:39→21:29)
[2019-01-02] MEDS: HEPARIN SOD (PORCINE) 5000 UNITS/ML VIAL SC SCH ×2 (10:40→21:27)
[2019-01-02] MEDS: HumaLOG INSULIN (NovoLOG) PER UNIT SC SCH ×4 (10:41→21:00)
[2019-01-02] MEDS: VANCOMYCIN HCL 1,000 MG, VIAL MATE ADAPTER 1 EACH in D5W 250 ML IV SCH (10:51)
[2019-01-02 12:00] VITALS: BP 120/64
[2019-01-02] MEDS: SLF 3 ML SYR IV SCH ×2 (14:32→21:29)
[2019-01-02 18:00] VITALS: BP_SYST 125; BP_SYST 215; BP_DIAS 66; BP_DIAS 86
[2019-01-02] MEDS: EZETIMIBE 10 MG TAB (ZETIA) PO SCH (21:27)
[2019-01-02] MEDS: FOLIC ACID 1 MG TAB PO SCH (21:27)
[2019-01-02 22:00] VITALS: BP 143/79
[2019-01-03] MEDS: ACETAMINOPH W/CODEINE #3 TAB UD PO PRN ×3 (05:22→20:22)
[2019-01-03] MEDS: SLF 3 ML SYR IV SCH ×3 (05:22→22:39)
[2019-01-03 06:00] VITALS: BP 134/74
[2019-01-03 07:13] LABS: BASO % 0.4 % (0.0-1.0); EOS # 0.1 10^3/uL (0.0-0.50); EOS % 1.1 % (0.0-3.0); HEMATOCRIT 34.7 % (36.0-47.0); HEMOGLOBIN 10.2 g/dl (12.0-15.5); LYMPH # 0.8 10^3/uL (1.5-4.5); LYMPH % 7.3 % (24.0-44.0); MEAN CORPUSCULAR HEMOGLOBIN 24.9 pg (27.0-33.0); MEAN CORPUSCULAR HGB CONC 29.4 g/dl (32.0-36.5); MEAN CORPUSCULAR VOLUME 84.6 fl (80.0-96.0); MONO # 0.6 10^3/uL (0.0-0.8); MONO % 5.7 % (0.0-5.0); NEUTROPHILS % 83.9 % (36.0-66.0); PLATELET COUNT, AUTOMATED 331 10^3/uL (150-450); WHITE BLOOD COUNT 10.8 10^3/uL (4.0-10.0)
[2019-01-03 07:39] LABS: BLOOD UREA NITROGEN 19 MG/DL (7-18); CALCIUM LEVEL 9.4 MG/DL (8.8-10.2); CARBON DIOXIDE LEVEL 31 MEQ/L (21-32); CHLORIDE LEVEL 100 MEQ/L (98-107); CREATININE FOR GFR 0.68 MG/DL (0.55-1.30); GLOMERULAR FILTRATION RATE > 60.0 (>32); GLUCOSE, FASTING 168 MG/DL (70-100); MAGNESIUM LEVEL 2.1 MG/DL (1.8-2.4); POTASSIUM SERUM 4.6 MEQ/L (3.5-5.1); SODIUM LEVEL 136 MEQ/L (136-145); VANCOMYCIN LEVEL TROUGH 21.4 UG/ML (10.0-20.0)
[2019-01-03] MEDS: HumaLOG INSULIN (NovoLOG) PER UNIT SC SCH ×4 (08:18→20:23)
[2019-01-03] MEDS: ASPIRIN 81 MG ENTERIC TAB PO SCH (08:21)
[2019-01-03] MEDS: METOPROLOL SUCC (TopROL XL) 50MG **XL** TAB PO SCH ×2 (08:21→20:21)
[2019-01-03] MEDS: SPIRONOLACTONE 25 MG TAB PO SCH (08:21)
[2019-01-03] MEDS: DIGOXIN 0.125 MG TAB PO SCH (08:21)
[2019-01-03] MEDS: allopurinoL 300 MG TAB PO SCH (08:21)
[2019-01-03] MEDS: HEPARIN SOD (PORCINE) 5000 UNITS/ML VIAL SC SCH ×2 (08:21→20:22)
[2019-01-03] MEDS: CLOBETASOL PROPIONATE EMOLLIENT 0.05% CR 60 GM TOP SCH ×2 (08:22→20:23)
[2019-01-03 10:00] VITALS: BP 117/60
--- NOTE | 2019-01-03 10:06 | IPNPDOC ---
Text Note Date of Service The patient was seen on 01/03/19. NOTE Subjective: Patient is an 88-year-old female with a PMHx of Systolic / Diastolic CHF (EF: 50%), A. fib (on ASA, not full anticoagulation), DLP, NIDDM2, CKD3, Chronic T10 compression fracture / arthritis / osteoporosis, unrepaired R hip fracture (2013) who presented to the ER after she was found to have an elevated heart rate. In the emergency room, patient was found to have atrial fibrillation with rapid ventricular response and was admitted to the hospital service for further evaluation and treatment. Of note, patient was recently admitted to the hospital for MRSA pneumonia and VRE UTI from 11/23 to 11/09. Imaging repeated the emergency room on this admission had revealed possibility of a developing infiltrate. Patient was seen and examined at the bedside. Patient denies chest pain, SOB or palpitations. Their report that there might has been uneventful. He denied nausea, vomiting, abdominal pain, diarrhea. Patient is not experiencing fevers. Objective: Vitals (See below) General: Lying in bed, no acute distress, comfortable, AAOx3 HEENT: Normocephalic and atraumatic CVS: IrIr, +S1S2 Lungs: Fair air entry bilaterally without any auscultated rhonchi, rales Abdomen: Soft without distention Extremities: No edema appreciated at lower extremities, - Calf tenderness Assessment and plan: Atrial fibrillation; s/p RVR - Patient has reported noncompliance with medications, has reported missing a few doses of medications on Friday, Friday and today - Patient remains hemodynamically stable - Rate appears remains well controlled - Troponin 2 set is negative; Digoxin level therapeutic - EKG noted to be in atrial fibrillation with RVR - c/w metoprolol succinate and Digoxin Cough with cummins colored sputum - possibly 2/2 atelectasis, less likely 2/2 healthcare associated pneumonia - Patient had reported a mild cough which cummins / clear colored sputum - Remains afebrile - CXR 12/29: Chronic stable changes. Subtle superimposed right lower lobe atelectasis/early infiltrate cannot be excluded. - Respiratory panel negative; Procalcitonin low, Unable to provide sputum sample - c/w Vancomycin; Will DC Zosyn (Day #6) Positive blood cultures 2 of 2 bottles for gram positive; MRSA - possibly 2/2 presumed endocarditis; Staph epidermidis - On prior admission, patient had a positive blood culture with MRSA; though, suspected to be secondary to pneumonia - Blood cultures 12/29: MRSA and Staph Epidermidis - Blood cultures 12/30: Negative at 72 hours - Transthoracic Echocardiogram completed at that time was negative for any vegetations - Discussed with Cardiology about potential PRATIMA - Consult infectious disease on Friday - Will c/w Vancomycin Chronic Systolic / Diastolic CHF (EF: 50%) - No evidence of exacerbation - c/w Spironolactone A. fib - See above - c/w ASA 81; not full anticoagulation DLP - c/w Ezetimibe, ASA NIDDM2 - c/w ISS CKD3 - Cr appears to be better than baseline of 1.0-1.1 Gout - c/w Allopurinol and Colchicine Chronic T10 compression fracture / arthritis / osteoporosis - c/w pain regimen from outpatient Unrepaired R hip fracture (2013) - Not a surgical candidate - Uses a wheel chair at baseline - Has been working with PT as an outpatient DVT prophylaxis - c/w Heparin Disposition: - Will treat for presumed endocarditis; awaiting ID consult on Friday VS,Kasia, I+O VS, Kasia, I+O Laboratory Tests 01/03/19 06:54 Red Blood Count 4.10, Mean Corpuscular Volume 84.6, Mean Corpuscular Hemoglobin 24.9 L, Mean Corpuscular Hemoglobin Concent 29.4 L, Red Cell Distribution Width 17.7 H, Neutrophils (%) (Auto) 83.9 H, Lymphocytes (%) (Auto) 7.3 L, Monocytes (%) (Auto) 5.7 H, Eosinophils (%) (Auto) 1.1, Basophils (%) (Auto) 0.4, Neutrophils # (Auto) 9.0 H, Lymphocytes # (Auto) 0.8 L, Monocytes # (Auto) 0.6, Eosinophils # (Auto) 0.1, Basophils # (Auto) 0.0, Calcium Level 9.4 Vital Signs Date Time Temp Pulse Resp B/P (MAP) Pulse Ox O2 Delivery O2 Flow Rate FiO2 01/03/19 08:21 98 01/03/19 08:21 132/73 01/03/19 06:00 97.5 20 99 12/29/18 18:12 Room Air I&O- Last 24 Hours up to 6 AM 01/03/19 06:00 Intake Total 1530 ml Balance 1530 ml HENRRY PICKETT MD Jan 03, 2019 10:06
[2019-01-03] MEDS: VANCOMYCIN HCL 1,000 MG, VIAL MATE ADAPTER 1 EACH in D5W 250 ML IV SCH (11:13)
--- NOTE | 2019-01-03 12:21 | PHACANCOPD ---
PHARMACY VANCOMYCIN DOSING Pt Demographics Demographics Patient Age:88 , Weight:50.500 , Gender: female Adjusted Body Weight Date: 12/29/18, Adjusted Body Weight: [47.8] Kg Events Past 24 Hours Events Past 24 Hours: NO: Dialysis, Diuretic Therapy, Change in CrCl, Fever, Elevation in WBC, Pending Diagnostics, Pending Procedures, Other Vancomycin Vancomycin indication: HAP Vancomycin Target Ranges: 15-20 mcg/ml Vancomycin Load Y/N: Yes Load Dose Date Time Vancomycin Load Dose: 1G IV VANCO Date: 12/29/18 Time: 1800 Vancomycin Dose Date: 12/31/18. Current Vancomycin Dose: 1000mg q24h Intermittent Dosing?: No Labs Labs Item Value Date Time Creatinine 0.66 MG/DL 01/01/19 0652 Creatinine 0.77 MG/DL 01/02/19 0512 Creatinine 0.68 MG/DL 01/03/19 0654 Vancomycin Level Trough 12.0 UG/ML 12/31/18 0546 Vancomycin Level Trough 15.7 UG/ML 01/01/19 0652 Vancomycin Level Trough 21.4 UG/ML H 01/03/19 0654 Micro Microbiology 01/02/19 Blood Culture - Preliminary, Resulted No growth after 24 hours . All specim... 01/02/19 Blood Culture - Preliminary, Resulted No growth after 24 hours . All specim... 12/30/18 Blood Culture - Preliminary, Resulted No Growth after 72 hours. All specime... 12/30/18 Blood Culture - Preliminary, Resulted No Growth after 72 hours. All specime... 12/29/18 Blood Culture - Final, Complete Staph.aureus Methicillin Resis 12/29/18 Blood Culture - Final, Complete Staphylococcus Epidermidis 12/29/18 MRSA Screen - Final, Complete Staph.aureus Methicillin Resis 12/29/18 Respiratory Virus Panel (PCR) ([facility]) - Final, Complete Creatinine Clearance Date:12/29/18. Creatinine Clearance: [CALCULATED 30 USING ABW AND ROUNDING SCR TO 1]. Assessment and Plan Maintaining Current Dose?: Yes Reason for dose change: No Dose Change Pharmacist Note Pharmacist Note Date: 01/03/19. Pharmacist note:PT trough came back today at 21.4mcg/ml at 6:54. 01/02 08:00 dose was administered at 11:15. Dosing will continue at 1g IV every 24 Hours. We will continue to monitor and adjust the dose as needed. Date: 12/29/18. Pharmacist note:Trough of 12 is below target range. Dose increased to 1000mg q24h. Will continue to monitor and make adjustments as needed. VERNA TAYLOR [facility] Jan 03, 2019 12:21
[2019-01-03 14:00] VITALS: BP 117/61
[2019-01-03] MEDS: EZETIMIBE 10 MG TAB (ZETIA) PO SCH (20:20)
[2019-01-03] MEDS: FOLIC ACID 1 MG TAB PO SCH (20:22)
[2019-01-03 22:00] VITALS: BP 124/69
[2019-01-04] MEDS: ACETAMINOPH W/CODEINE #3 TAB UD PO PRN ×4 (02:51→23:31)
[2019-01-04 06:00] VITALS: BP_SYST 124; BP_SYST 128; BP_DIAS 69; BP_DIAS 74
[2019-01-04 06:03] LABS: BASO # 0.1 10^3/uL (0.0-0.2); BASO % 0.6 % (0.0-1.0); EOS # 0.2 10^3/uL (0.0-0.50); EOS % 1.6 % (0.0-3.0); HEMATOCRIT 32.2 % (36.0-47.0); HEMOGLOBIN 9.5 g/dl (12.0-15.5); LYMPH # 0.9 10^3/uL (1.5-4.5); LYMPH % 8.8 % (24.0-44.0); MEAN CORPUSCULAR HGB CONC 29.5 g/dl (32.0-36.5); MEAN CORPUSCULAR VOLUME 84.7 fl (80.0-96.0); MONO # 0.5 10^3/uL (0.0-0.8); MONO % 5.6 % (0.0-5.0); NEUTROPHILS # 7.9 10^3/uL (1.8-7.7); PLATELET COUNT, AUTOMATED 325 10^3/uL (150-450); WHITE BLOOD COUNT 9.7 10^3/uL (4.0-10.0)
[2019-01-04] MEDS: SLF 3 ML SYR IV SCH ×3 (06:17→20:58)
[2019-01-04 06:22] LABS: BLOOD UREA NITROGEN 20 MG/DL (7-18); CALCIUM LEVEL 9.1 MG/DL (8.8-10.2); CARBON DIOXIDE LEVEL 29 MEQ/L (21-32); CHLORIDE LEVEL 103 MEQ/L (98-107); CREATININE FOR GFR 0.64 MG/DL (0.55-1.30); GLOMERULAR FILTRATION RATE > 60.0 (>32); GLUCOSE, FASTING 124 MG/DL (70-100); POTASSIUM SERUM 4.5 MEQ/L (3.5-5.1); SODIUM LEVEL 139 MEQ/L (136-145)
[2019-01-04] MEDS: HEPARIN SOD (PORCINE) 5000 UNITS/ML VIAL SC SCH ×2 (08:06→20:53)
[2019-01-04] MEDS: VANCOMYCIN HCL 1,000 MG, VIAL MATE ADAPTER 1 EACH in D5W 250 ML IV SCH (08:07)
[2019-01-04] MEDS: ASPIRIN 81 MG ENTERIC TAB PO SCH (08:07)
[2019-01-04] MEDS: HumaLOG INSULIN (NovoLOG) PER UNIT SC SCH ×4 (08:07→20:55)
[2019-01-04] MEDS: DIGOXIN 0.125 MG TAB PO SCH (08:08)
[2019-01-04] MEDS: allopurinoL 300 MG TAB PO SCH (08:08)
[2019-01-04] MEDS: CLOBETASOL PROPIONATE EMOLLIENT 0.05% CR 60 GM TOP SCH ×2 (08:08→20:56)
[2019-01-04] MEDS: METOPROLOL SUCC (TopROL XL) 50MG **XL** TAB PO SCH ×2 (08:08→20:54)
[2019-01-04] MEDS: SPIRONOLACTONE 25 MG TAB PO SCH (08:08)
[2019-01-04 13:50] VITALS: BP 110/60
[2019-01-04] MEDS: NYSTATIN 100,000 UNITS/GM TOPICAL PWD 15 GM TOP SCH (18:14)
--- NOTE | 2019-01-04 18:36 | IPNPDOC ---
Subjective Date Seen The patient was seen on 01/04/19 at 9:00. Subjective Chief Complaint/HPI Patient is an 88yo female who presented to the ED on 12/29/2018 with the chief complaint of an accelerated heart rate. EKG showed atrial fibrillation with rapid ventricular rate. CXR in ED showed possible RLL atelectasis. Pt was a dmitted to [facility] from 11/09-11/23/18 with MRSA+ PNA and VRE UTI. Pt was seen and examined this morning while lying upright in bed. Pt denies feeling feverish, HARRISON, diaphoresis, feeling lightheaded, chest pain, or palpitations. Pt endorses cough with accompanying sensation that phlegm is present but she is unable to bring it up. Pt denies SOB or increased work of breathing. Pt denies abdominal pain, feeling nauseated, vomiting, diarrhea, constipation, or LE edema. Pt tolerating solid and liquid diet, and has had 2 recent BMs. Pt is incontinent, voiding into adult diaper, but denies dysuria or increased urinary frequency. Objective Physical Examination General Exam: Positive: Alert (A&Ox3), Cooperative, No Acute Distress Neck Exam: Positive: Supple, +2 carotid pulse wo bruit Chest Exam: Positive: Clear to auscultation, Normal air movement (on room air); Negative: Rhonchi, Wheezing Heart Exam: Positive: Rate Normal (rate controlled (92bpm)), Irregular Rhythm (irregularly irregular), Normal S1, Normal S2; Negative: Murmurs Abdomen Exam: Positive: Normal bowel sounds (in all four quadrants), Soft (mildly distended); Negative: Tenderness Extremity Exam: Positive: Normal pulses (2+ radial and posterior tibial); Negative: Edema Skin Exam: Positive: Other skin issue (b/l LE diffuse ecchymosis with isolated small healing ulcer-appearing wounds); Negative: Rash Neuro Exam: Positive: Normal Speech, Strength at 5/5 X4 ext, Sensation Intact (b/l UE and LE to light touch) Assessment /Plan Assessment Atrial fibrillation s/p rapid ventricular response -pt is currently hemodynamically stable with controlled rate and blood pressure -c/w metoprolol (day 6) and digoxin (day 4); digoxin is at therapeutic levels -c/w heparin (day 7) for anti-coagulation and ASA (day7) for anti-platelet effects associated with increased thromboembolic risk of a-fib -repeat thyroid panel today as possible inciting factor of a-fib due elevated free T4 and decreased TSH levels on most recent measurements (12/29/2018) Positive blood cultures on 2 out of 2 plates with MRSA and Staph epidermidis likely 2/2 suspected endocarditis -pt has remained afebrile throughout course of current hospitalization with non- elevated procalcitonin (0.12, 12/29/2018) -cardiology was consulted and subsequent trans-thoracic echocardiogram (TTE) was negative; next step of endocarditis w/u involving trans-esophageal echocardiogram (PRATIMA) will only be performed if infectious disease finds sufficient evidence that endocarditis is present. -infectious disease consulted to examine likelihood of endocarditis -repeat blood cultures at 72 hours were negative -c/w vancomycin (day 6) Cough likely 2/2 suspected RLL atelectasis -pt has remained afebrile with non-elevated procalcitonin -pt's current O2 sat is 99% RA -if cough worsens or inability to bring up phlegm continues/worsens, will consider adding Mucinex Chronic systolic/diastolic CHF (EF: 50%) -pt has no visible edema or JVD, and lungs were cta on exam -c/w spironolactone administration NIDDM (DM II) -pt's fasting sGlu is trending downward, with most recent measurement of 124 -c/w ISS administration protocol Chronic gout -c/w colchicine and allopurinol administration CKD Type III -pt's latest Cr (0.64) was lower than her baseline (1.0-1.1) Dyslipidemia -c/w ezetimibe administration Chronic T10 compression fracture -c/w with outpt pain medication Rt hip fracture sustained in 2013 -c/w outpt pain medication DVT prophylaxis -c/w heparin administration -pt is wearing SCDs Plan/VTE VTE Prophylaxis Ordered?: Yes VS, I&O, 24H, Fishbone Vital Signs/I&O Vital Signs Date Time Temp Pulse Resp B/P (MAP) Pulse Ox O2 Delivery O2 Flow Rate FiO2 01/04/19 10:04 16 01/04/19 08:08 92 01/04/19 08:08 128/74 01/04/19 06:00 97.8 99 12/29/18 18:12 Room Air I&O- Last 24 Hours up to 6 AM 01/04/19 06:00 Intake Total 540 ml Balance 540 ml Laboratory Data 24H LABS Laboratory Tests 2 01/03/19 19:57: Bedside Glucose (Misc Panel) 90 01/04/19 05:16: Immature Granulocyte % (Auto) 1.4, White Blood Count 9.7, Red Blood Count 3.80L, Hemoglobin 9.5L, Hematocrit 32.2L, Mean Corpuscular Volume 84.7, Mean Corpuscular Hemoglobin 25.0L, Mean Corpuscular Hemoglobin Concent 29.5L, Red Cell Distribution Width 17.9H, Platelet Count 325, Neutrophils (%) (Auto) 82.0H, Lymphocytes (%) (Auto) 8.8L, Monocytes (%) (Auto) 5.6H, Eosinophils (%) (Auto) 1.6, Basophils (%) (Auto) 0.6, Neutrophils # (Auto) 7.9H, Lymphocytes # (Auto) 0.9L, Monocytes # (Auto) 0.5, Eosinophils # (Auto) 0.2, Basophils # (Auto) 0.1, Nucleated Red Blood Cells % (auto) 0.0, Anion Gap 7L, Glomerular Filtration Rate > 60.0, Blood Urea Nitrogen 20H, Creatinine 0.64, Sodium Level 139, Potassium Level 4.5, Chloride Level 103, Carbon Dioxide Level 29, Calcium Level 9.1, Magnesium Level 2.0, C-Reactive Protein, Quantitative 2.60H 01/04/19 12:08: Bedside Glucose (Misc Panel) 226H CBC/BMP Laboratory Tests 01/04/19 05:16 Red Blood Count 3.80 L, Mean Corpuscular Volume 84.7, Mean Corpuscular Hemoglobin 25.0 L, Mean Corpuscular Hemoglobin Concent 29.5 L, Red Cell Distribution Width 17.9 H, Neutrophils (%) (Auto) 82.0 H, Lymphocytes (%) (Auto) 8.8 L, Monocytes (%) (Auto) 5.6 H, Eosinophils (%) (Auto) 1.6, Basophils (%) (Auto) 0.6, Neutrophils # (Auto) 7.9 H, Lymphocytes # (Auto) 0.9 L, Monocytes # (Auto) 0.5, Eosinophils # (Auto) 0.2, Basophils # (Auto) 0.1, Calcium Level 9.1 Microbiology Microbiology 01/02/19 Blood Culture - Preliminary, Resulted No Growth after 48 hours. All Specime... 01/02/19 Blood Culture - Preliminary, Resulted No Growth after 48 hours. All Specime... 12/30/18 Blood Culture - Final, Complete NO GROWTH AFTER 5 DAYS 12/30/18 Blood Culture - Final, Complete NO GROWTH AFTER 5 DAYS 12/29/18 Blood Culture - Final, Complete Staph.aureus Methicillin Resis 12/29/18 Blood Culture - Final, Complete Staphylococcus Epidermidis 12/29/18 MRSA Screen - Final, Complete Staph.aureus Methicillin Resis 12/29/18 Respiratory Virus Panel (PCR) ([facility]) - Final, Complete GME ATTESTATION GME ATTESTATION My faculty preceptor for this patient encounter was physically present during the encounter and was fully available. All aspects of the patient interview, examination, medical decision making process, and medical care plan development were reviewed and approved by the faculty preceptor. The faculty preceptor is aware and concurs with the plan as stated in the body of this note and will attest to such by his/her cosignature. ATTENDING NOTE I, Morales Pickett, have independently examined this patient and performed my own physical exam, as well as reviewed the documentation and edited where necessary. I have discussed in detail with the resident / student the findings and plan of treatment as documented by the resident / student and edited their note. I agree with their findings and treatment plan and have edited their documentation. I will continue to follow the patient during this hospital stay. ABAD HASKINS PGY-1 Jan 04, 2019 17:10 MORALES PICKETT MD Jan 04, 2019 19:17
[2019-01-04] MEDS ORDERED: FLUCONAZOLE 50MG TABLET PO ONE (20:00)
[2019-01-04] MEDS: guaiFENesin ER 600 MG TAB PO SCH (20:53)
[2019-01-04] MEDS: FOLIC ACID 1 MG TAB PO SCH (20:54)
[2019-01-04] MEDS: EZETIMIBE 10 MG TAB (ZETIA) PO SCH (20:54)
[2019-01-04] MEDS: EUCERIN 120GM CREAM TOP SCH (20:55)
--- NOTE | 2019-01-05 00:09 | CR ---
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 HISTORY OF PRESENT ILLNESS: Mrs. Hernandez is a pleasant 88-year-old female who was admitted from 11/23/2018, discharged on 12/10/2018 with MRSA pneumonia and bacteremia. The patient had a transthoracic echocardiogram which showed no evidence of vegetation. The patient had some chest pain mostly in the left anterior ribs and around her chest She has mild shortness of breath, a cough which is mostly productive of whitish phlegm. No nausea, vomiting or diarrhea. No fever or chills. She denies any headache, any gastrointestinal (GI) symptoms; diarrhea on admission has resolved. Her appetite is normal. PAST MEDICAL HISTORY: Significant for systolic and diastolic congestive heart failure with ejection fraction of 50%, atrial fibrillation - on aspirin, dyslipidemia, non-insulin dependent diabetes, chronic kidney disease stage III, chronic T10 compression fracture, osteoarthritis, osteoporosis, unrepaired right hip fracture. SURGICAL HISTORY: Hysterectomy, bilateral cataract surgery. FAMILY HISTORY: Mother of pneumonia, father of stomach ulcers. SOCIAL HISTORY: She lives with 24-hour care. Her daughter is a nurse. She visits her quite often. She denies any smoking or drinking. PHYSICAL EXAMINATION: Sarabjit elderly female in no acute distress. Temperature is 97.9, pulse 83, respiratory rate 18, blood pressure 110/70, oxygen saturation (O2 sat) 94% on room air. Heart: Normal S1, S2, irregular. Lungs: Diminished breath sounds at bases. No wheezes, rales or rhonchi. Abdomen: Soft, nontender. Chest wall tenderness at the left anterior ribs between 7 and 8, along the costochondral junction. Extremities: Trace ankle edema bilaterally. She has some venous ulcerations that are mostly linear from scratching. Hyperpigmented venous stasis changes. No evidence of infection of lower extremities, venous stasis ulcers. LABORATORY DATA: White count 9.7, hemoglobin 9.5, hematocrit 32.2, platelets 325, 82% neutrophils, 8% lymphocytes, 5% monocytes. Sodium 139, potassium 4.5, chloride 103, bicarbonate 29, BUN 20, creatinine 0.64, glucose 124, calcium 9.1, magnesium 2, CRP 2.6. Blood culture on admission was positive for MRSA, one out of two sets. The second set had Staphylococcus (staph) epidermidis. Respiratory panel negative. Nasopharyngeal swab had MRSA. Blood cultures on 12/30/2018 two sets were negative within 24 hours. 01/02/2019 two sets of blood cultures were negative. Chest x-ray showed chronic interstitial changes. MEDICATIONS: Guaifenesin 600 mg by mouth twice a day. Eucerin cream on both lower extremities. Vancomycin 1 gram IV every 24 hours. Metoprolol 50 mg twice a day. Heparin sliding scale. Zetia 10 mg by mouth nightly. Insulin sliding scale, folic acid 1 mg by mouth nightly. Tylenol with codeine as needed. Colchicine 0.6 mg by mouth twice a day as needed for gout, aspirin 81 mg daily, Aldactone 25 mg by mouth daily. ALLERGIES: No known drug allergies. Echocardiogram, transthoracic: Ejection fraction 40-45%. Biatrial enlargement. Aortic valve is sclerotic but mobility seems to be preserved. Pulmonary artery pressures 40 or higher, moderate pulmonary hypertension. No evidence of vegetation. IMPRESSION: This is an 88-year-old female who was admitted with recurrent MRSA bacteremia after being treated with 15 days of IV vancomycin on previous admission. She had recurrence within 2 weeks of discharge. Concerning would be endocarditis or endovascular infection. Other possibilities would be osteomyelitis. The patient has chronic chest wall pain on the left side mostly, which is the same presentation as previous hospitalization. cavitary also concern would be a cavitary pneumonia with MRSA. Chest x-ray showed only chronic changes, but it was a poor technique. PLAN: Agree with not obtaining a transesophageal echocardiogram as I would still recommend treating her with IV vancomycin for 6 weeks as this is a recurrent infection. Obtain ESR. Obtain CT chest to rule out septic emboli or cavitary pneumonia. Eucerin for dry skin on both lower extremities to decrease the risk of recurrent infection of venous ulcers. The patient will be scheduled for a peripherally inserted central catheter (PICC) line for home IV antibiotics. This will be arranged at home. She has 24-hour care, and her daughter is a nurse. Once patient is stable, she could be discharged home to finish a 6-week course of IV vancomycin from last positive MRSA blood culture end of therapy would be 02/10/2019. Thank you for the consultation. TD
[2019-01-05 06:14] VITALS: BP 113/65
[2019-01-05] MEDS: ACETAMINOPH W/CODEINE #3 TAB UD PO PRN ×3 (06:19→20:53)
[2019-01-05] MEDS: SLF 3 ML SYR IV SCH ×3 (06:20→20:55)
[2019-01-05] MEDS ORDERED: ISOVUE-370 76% 100ML VIAL (Q9967) As Ordered ONE (07:48)
[2019-01-05 08:07] LABS: BASO % 0.4 % (0.0-1.0); EOS # 0.2 10^3/uL (0.0-0.50); EOS % 1.5 % (0.0-3.0); HEMATOCRIT 31.5 % (36.0-47.0); HEMOGLOBIN 9.2 g/dl (12.0-15.5); LYMPH # 0.7 10^3/uL (1.5-4.5); LYMPH % 6.5 % (24.0-44.0); MEAN CORPUSCULAR HEMOGLOBIN 24.4 pg (27.0-33.0); MEAN CORPUSCULAR HGB CONC 29.2 g/dl (32.0-36.5); MEAN CORPUSCULAR VOLUME 83.6 fl (80.0-96.0); MONO # 0.7 10^3/uL (0.0-0.8); MONO % 6.3 % (0.0-5.0); NEUTROPHILS # 9.3 10^3/uL (1.8-7.7); NEUTROPHILS % 84.7 % (36.0-66.0); PLATELET COUNT, AUTOMATED 319 10^3/uL (150-450); RED BLOOD COUNT 3.77 10^6/uL (4.00-5.40)
[2019-01-05 08:38] LABS: BLOOD UREA NITROGEN 21 MG/DL (7-18); CALCIUM LEVEL 9.5 MG/DL (8.8-10.2); CARBON DIOXIDE LEVEL 30 MEQ/L (21-32); CHLORIDE LEVEL 110 MEQ/L (98-107); CREATININE FOR GFR 0.72 MG/DL (0.55-1.30); GLOMERULAR FILTRATION RATE > 60.0 (>32); GLUCOSE, FASTING 154 MG/DL (70-100); POTASSIUM SERUM 4.2 MEQ/L (3.5-5.1); SODIUM LEVEL 130 MEQ/L (136-145)
[2019-01-05] MEDS: CLOBETASOL PROPIONATE EMOLLIENT 0.05% CR 60 GM TOP SCH ×2 (09:00→20:55)
--- NOTE | 2019-01-05 09:01 | PHACANCOPD ---
PHARMACY VANCOMYCIN DOSING Pt Demographics Demographics Patient Age:88 , Weight:50.500 , Gender: female Adjusted Body Weight Date: 12/29/18, Adjusted Body Weight: [47.8] Kg Events Past 24 Hours Events Past 24 Hours: NO: Dialysis, Diuretic Therapy, Change in CrCl, Fever, Elevation in WBC, Pending Diagnostics, Pending Procedures, Other Vancomycin Vancomycin indication: HAP Vancomycin Target Ranges: 15-20 mcg/ml Vancomycin Load Y/N: Yes Load Dose Date Time Vancomycin Load Dose: 1G IV VANCO Date: 12/29/18 Time: 1800 Vancomycin Dose Date: 12/31/18. Current Vancomycin Dose: 1000mg q24h Intermittent Dosing?: No Labs Labs Item Value Date Time White Blood Count 10.8 10^3/uL H 01/03/19 0654 White Blood Count 9.7 10^3/uL 01/04/19 0516 White Blood Count 11.0 10^3/uL H 01/05/19 0708 Vancomycin Level Trough 15.7 UG/ML 01/01/19 0652 Vancomycin Level Trough 21.4 UG/ML H 01/03/19 0654 Vancomycin Level Trough 19.3 UG/ML 01/05/19 0708 Micro Microbiology 01/02/19 Blood Culture - Preliminary, Resulted No Growth after 72 hours. All specime... 01/02/19 Blood Culture - Preliminary, Resulted No Growth after 72 hours. All specime... 12/30/18 Blood Culture - Final, Complete NO GROWTH AFTER 5 DAYS 12/30/18 Blood Culture - Final, Complete NO GROWTH AFTER 5 DAYS 12/29/18 Blood Culture - Final, Complete Staph.aureus Methicillin Resis 12/29/18 Blood Culture - Final, Complete Staphylococcus Epidermidis 12/29/18 MRSA Screen - Final, Complete Staph.aureus Methicillin Resis 12/29/18 Respiratory Virus Panel (PCR) (RAD[facility]) - Final, Complete Creatinine Clearance Date:12/29/18. Creatinine Clearance: [CALCULATED 30 USING ABW AND ROUNDING SCR TO 1]. Assessment and Plan Maintaining Current Dose?: Yes Reason for dose change: No Dose Change Pharmacist Note Pharmacist Note Date: 01/05/19. Pharmacist note: Pt trough came in this morning at 07:08 @ 19.3mcg/ml. We will continue current dosing of 1g IV every 24 hours. We will continue to monitor and adjust the dose as needed. Date: 01/03/19. Pharmacist note:PT trough came back today at 21.4mcg/ml at 6:54. 01/02 08:00 dose was administered at 11:15. Dosing will continue at 1g IV every 24 Hours. We will continue to monitor and adjust the dose as needed. Date: 12/29/18. Pharmacist note:Trough of 12 is below target range. Dose increased to 1000mg q24h. Will continue to monitor and make adjustments as needed. VERNA TAYLOR PHARMACY Jan 05, 2019 09:01
[2019-01-05 09:02] LABS: ERYTHROCYTE SEDIMENTATION RATE 86 mm/hr (0-42)
[2019-01-05] MEDS: DIGOXIN 0.125 MG TAB PO SCH (09:23)
[2019-01-05] MEDS: SPIRONOLACTONE 25 MG TAB PO SCH (09:23)
[2019-01-05] MEDS: guaiFENesin ER 600 MG TAB PO SCH ×2 (09:24→20:54)
[2019-01-05] MEDS: METOPROLOL SUCC (TopROL XL) 50MG **XL** TAB PO SCH ×2 (09:24→20:54)
[2019-01-05] MEDS: ASPIRIN 81 MG ENTERIC TAB PO SCH (09:24)
[2019-01-05] MEDS: HEPARIN SOD (PORCINE) 5000 UNITS/ML VIAL SC SCH ×2 (09:24→20:20)
[2019-01-05] MEDS: allopurinoL 300 MG TAB PO SCH (09:24)
[2019-01-05] MEDS: HumaLOG INSULIN (NovoLOG) PER UNIT SC SCH ×5 (09:25→21:00)
[2019-01-05] MEDS: EUCERIN 120GM CREAM TOP SCH ×2 (09:25→20:55)
[2019-01-05] MEDS: VANCOMYCIN HCL 1,000 MG, VIAL MATE ADAPTER 1 EACH in D5W 250 ML IV SCH (09:25)
[2019-01-05] MEDS: NYSTATIN 100,000 UNITS/GM TOPICAL PWD 15 GM TOP SCH (09:26)
--- NOTE | 2019-01-05 11:39 | REP ---
CT CHEST WITH IV CONTRAST: HISTORY: Chest pain in the left anterior ribs. RSA bacteremia, recurrent. Comparison chest x-ray December 31, 2018. Comparison CT study of the chest is from November 23, 2018. CT CONTRAST DOSE: 75 mL of intravenous Isovue [address] FINDINGS: There is good opacification of the pulmonary arterial tree and there is no CT evidence of pulmonary embolus. No evidence of aneurysm or dissection is seen in the aorta. Atherosclerotic calcification is noted. No adrenal lesion is seen. There is mild cortical atrophy in the upper poles of the kidneys bilaterally. Moderate cardiomegaly is observed. No pericardial effusion is seen. There is a small right pleural effusion noted. This is a new finding. There is consolidation and some atelectasis in the right lower lobe, which is more pronounced today than on the November 23, 2018 study. There is an area of collapse and consolidation in the left upper lobe as well, which it is unchanged. There is a band of coarse atelectasis in the left lower lobe with air bronchograms. This is unchanged. No hilar or mediastinal mass or adenopathy is observed. There are two small right thyroid nodules unchanged. Thoracic kyphosis is exaggerated as noted previously. There is stable wedging of the T10 vertebra with 50% loss of anterior vertebral body heights. There is a new finding of endplate destruction in the T7-8 intervertebral disc space, with some para vertebral soft tissue swelling on the right anteriorly. There is endplate destruction is not apparent on November 23, 2018 and is suggestive of acute infectious discitis. IMPRESSION: 1. Progressive consolidation in the right lower lobe consistent with increased pneumonia. No cavitary changes. 2. Collapse and consolidation which appear to be chronic in the left upper lobe and left lower lobe. 3. New small right pleural effusion. 4. Endplate destruction with paravertebral soft-tissue swelling at the T7-8 intervertebral disc level as an interval change from recent study November 23, 2018. Findings suggestive of acute fracture is thoracic discitis. Electronically Signed by Arthur Winchester MD 01/05/2019 04:53 P
--- NOTE | 2019-01-05 14:08 | REP ---
TRIPLE PHASE BONE SCAN THORACOLUMBAR REGION: Following the intravenous administration of 21.9 millicuries technetium 99M MDP, patient's thoracolumbar region is imaged in the flow phase in the anterior and posterior projections showing normal blood pool structures. Immediate blood pool images are performed in multiple projections. Patient refused delayed images. There is focal increased blood pooling at the proximally T7-[address] On today's CT scan, destructive endplate changes are seen at this level. Again, the findings are suggestive of acute discitis and possible osteomyelitis at the T7-8 level. No other definite abnormalities are seen. Electronically Signed by Max Ambriz MD 01/07/2019 10:17 A
[2019-01-05 14:12] VITALS: BP 105/61
[2019-01-05] MEDS ORDERED: LIDOCAINE 1% MDV 20ML VIAL As Ordered ONE (16:10)
[2019-01-05 17:55] VITALS: BP 123/66
--- NOTE | 2019-01-05 18:17 | IPN ---
DATE: 01/05/2019 Anabelle is doing well. She has no complaint except for some pain in her chest wall and pain across her back. She is going down for a peripherally inserted central catheter (PICC) line this afternoon. Her cough is improved. She has no fever or chills. Denies any hemoptysis. LABORATORY DATA: White count is 11, hemoglobin 9.2, hematocrit 31.5, platelets 319, 84% neutrophils, 6% lymphocytes, 6% monocytes. ESR 86. Sodium 130, potassium 4.2, chloride 110, bicarbonate 30, BUN 21, creatinine 0.72, glucose 154, calcium 9.5, magnesium 2, CRP 2.6. Blood culture, one out of two was positive for MRSA on 12/29/2018 and negative on 12/30/2018. IMAGING STUDIES: Chest CT showed progressive consolidation of the right lower lobe consistent with worsening pneumonia, collapse and consolidation in the left upper lobe and endplate destruction with paravertebral soft tissue swelling at T7-8, interval disc level new from 11/23/2018. Bone scan done on 01/05/2019 again suggestive of acute discitis at T7-8. PHYSICAL EXAMINATION: Temperature is 98, pulse 92, respirations 16, blood pressure 113/65, oxygen saturation 96% on room air. HEART: Normal S1, S2, irregular. LUNGS: Diminished breath sounds, severe kyphoscoliosis, expiratory rhonchi at both bases. ABDOMEN: Soft, nontender. No hepatosplenomegaly. BACK: Thoracic tenderness around T6-7, T7-8 with severe kyphoscoliosis. EXTREMITIES: Lower extremity weakness. Hip flexions are 5- bilaterally. IMPRESSION: 1. 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 The patient currently on IV vancomycin 1 gram every 24 hours and receiving a peripherally inserted central catheter (PICC) line today for home IV antibiotics. 2. Chronic obstructive pulmonary disease (COPD), stable. Oxygen saturation at baseline. 3. Atrial fibrillation, on digoxin. PLAN: Peripherally inserted central catheter (PICC) line tonight. 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 Please consult patient and family services (PFS) for home IV antibiotic, consult [facility]. Her daughter will be in charge of her home IV antibiotics. End of therapy will be six weeks from negative culture which would be 02/10/2019. Please monitor complete blood count (CBC), comprehensive metabolic panel (CMP), C-reactive protein (CRP), erythrocyte sedimentation rate (ESR) and vancomycin trough weekly. Followup in my office in 2-3 weeks with infectious disease. Case has been discussed with Dr. Luis. Hopefully anticipate discharge in the next 24-48 hours.
--- NOTE | 2019-01-05 18:40 | IPNPDOC ---
Subjective Date Seen The patient was seen on 01/05/19 at 9:15. Subjective Chief Complaint/HPI Patient is a pleasant 88yo female who presented to the ED on 12/29/2018 with the chief complaint of an accelerated heart rate. EKG showed atrial fibrillation with rapid ventricular rate. CXR in ED showed possible RLL atelectasis. Pt was admitted to [facility] from 11/09-11/23/18 with MRSA+ PNA and VRE UTI. Pt was seen and examined this morning while lying upright in bed. There were no acute events overnight other than disconnection of pt's sequential compression devices for DVT prophylaxis due to LE skin sensitivity b/l. Pt's cough remains present and she is unable to bring it up any phlegm. Pt denies SOB or increased work of breathing. Pt continues to have unchanged, chronic right parasternal mild chest discomfort and pressure around ribs 7-10. Pt denies feeling feverish, HARRISON, diaphoresis, feeling lightheaded, chest pain, or palpitations. Pt denies abdominal pain, feeling nauseated, vomiting, diarrhea, constipation, or LE edema. Pt tolerating solid and liquid diet and did not have BM overnight. Pt is incontinent, voiding into adult diaper, but denies dysuria or increased urinary frequency. General: Reports: Normal Appetite; Denies: Chills, Night Sweats Constitutional: Denies: Fever ENT: Denies: Head Aches, Dysphagia Pulmonary: Reports: Cough; Denies: Dyspnea Cardiovascular: Denies: Chest Pain, Palpitations, Edema Gastrointestinal: Denies: Nausea, Vomiting, Abdominal Pain Genitourinary: Denies: Dysuria, Frequency Neurological: Denies: Weakness, Numbness Objective Physical Examination General Exam: Positive: Alert, Cooperative, No Acute Distress Neck Exam: Positive: Supple, +2 carotid pulse wo bruit Chest Exam: Positive: Clear to auscultation (right LL crackles); Negative: Normal air movement (diminshed air movement), Rhonchi, Wheezing Heart Exam: Positive: Rate Normal (rate controlled (92bpm)), Irregular Rhythm (irregularly irregular), Normal S1, Normal S2; Negative: Murmurs Abdomen Exam: Positive: Normal bowel sounds (in all four quadrants), Soft (mildly distended); Negative: Tenderness Extremity Exam: Positive: Normal pulses (2+ radial and posterior tibial); Negative: Edema Skin Exam: Positive: Other skin issue (b/l LE venous ulcerations tender to light palpation); Negative: Rash Neuro Exam: Positive: Normal Speech, Strength at 5/5 X4 ext, Sensation Intact (b/l UE and LE to light touch) RAD Interpretation STUDY: CT Chest (with IV contrast) RAD Interpretation: Worse (1. Progressive consolidation in the right lower lobe consistent with increased pneumonia. No cavitary lesions. 2. Collapse and consolidation which appear to be chronic in the left upper lobe and left lower lobe. 3. New small right pleural effusion. 4. Endplate destruction with paravertebral soft-tissue swelling at the T7-8 intervertebral disc level as an interval change from recent study November 23, 2018. 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 We are trending CRP to evaluate for acute state inflammatory process, with last measurement showing mild elevation (2.6). -Dr. Heredia (infectious disease) saw pt yesterday and agreed to not obtain PRATIMA, but to insert peripherally inserted central catheter (PICC) for home IV administration of 6-week vancomycin course once pt is stable enough to be discharged. -chest ct today showed signs of T7-8 intervertebral discitis that was supported by T7-8 focal blood pooling on triple phase bone scan. -c/w vancomycin regimen (day 7) Cough likely 2/2 suspected right lower lobe pna -chest ct showed worsening rt lower lobe pna, as well as left upper lobe and lower lobe consolidation. -c/w vancomycin -pt's current O2 sat is 96% RA -mucinex was added to medication regimen to help break up airway mucous Chronic systolic/diastolic CHF (EF: 50%) -pt has no visible edema or JVD, and lungs were cta on exam -c/w spironolactone administration NIDDM (DM II) -pt's most recent fasting blood glucose is 154, up from 124 yesterday -c/w ISS administration protocol Chronic gout -c/w colchicine and allopurinol administration CKD Type III -pt's latest Cr (0.72) was lower than her baseline (1.0-1.1) Dyslipidemia -c/w ezetimibe administration Chronic T10 compression fracture -c/w with outpt pain medication Rt hip fracture sustained in 2014 -c/w outpt pain medication DVT prophylaxis -c/w heparin administration I saw and evaluated the patient. I agree with the findings and plan of care as documented in the resident's note Plan/VTE VTE Prophylaxis Ordered?: Yes VS, I&O, 24H, Fishbone Vital Signs/I&O Vital Signs Date Time Temp Pulse Resp B/P (MAP) Pulse Ox O2 Delivery O2 Flow Rate FiO2 01/05/19 13:38 16 01/05/19 09:24 92 113/65 01/05/19 06:14 98.0 96 I&O- Last 24 Hours up to 6 AM 01/05/19 06:00 Intake Total 640 ml Balance 640 ml Laboratory Data 24H LABS Laboratory Tests 2 01/04/19 16:51: Bedside Glucose (Misc Panel) 109 01/04/19 20:32: Bedside Glucose (Misc Panel) 171H 01/05/19 07:08: Immature Granulocyte % (Auto) 0.6, White Blood Count 11.0H, Red Blood Count 3.77L, Hemoglobin 9.2L, Hematocrit 31.5L, Mean Corpuscular Volume 83.6, Mean Corpuscular Hemoglobin 24.4L, Mean Corpuscular Hemoglobin Concent 29.2L, Red Cell Distribution Width 18.0H, Platelet Count 319, Neutrophils (%) (Auto) 84.7H, Lymphocytes (%) (Auto) 6.5L, Monocytes (%) (Auto) 6.3H, Eosinophils (%) (Auto) 1.5, Basophils (%) (Auto) 0.4, Neutrophils # (Auto) 9.3H, Lymphocytes # (Auto) 0.7L, Monocytes # (Auto) 0.7, Eosinophils # (Auto) 0.2, Basophils # (Auto) 0.0, Nucleated Red Blood Cells % (auto) 0.0, Erythrocyte Sedimentation Rate 86H, Anion Gap -10L, Glomerular Filtration Rate > 60.0, Blood Urea Nitrogen 21H, Creatinine 0.72, Sodium Level 130#L, Potassium Level 4.2, Chloride Level 110H, Carbon Dioxide Level 30, Calcium Level 9.5, Magnesium Level 2.0, Vancomycin Level Trough 19.3 01/05/19 07:44: Bedside Glucose (Misc Panel) 172H 01/05/19 11:50: Bedside Glucose (Misc Panel) 116H CBC/BMP Laboratory Tests 01/05/19 07:08 Red Blood Count 3.77 L, Mean Corpuscular Volume 83.6, Mean Corpuscular Hemoglobin 24.4 L, Mean Corpuscular Hemoglobin Concent 29.2 L, Red Cell Distribution Width 18.0 H, Neutrophils (%) (Auto) 84.7 H, Lymphocytes (%) (Auto) 6.5 L, Monocytes (%) (Auto) 6.3 H, Eosinophils (%) (Auto) 1.5, Basophils (%) (Auto) 0.4, Neutrophils # (Auto) 9.3 H, Lymphocytes # (Auto) 0.7 L, Monocytes # (Auto) 0.7, Eosinophils # (Auto) 0.2, Basophils # (Auto) 0.0, Calcium Level 9.5 Microbiology Microbiology 01/02/19 Blood Culture - Preliminary, Resulted No Growth after 72 hours. All specime... 01/02/19 Blood Culture - Preliminary, Resulted No Growth after 72 hours. All specime... 12/30/18 Blood Culture - Final, Complete NO GROWTH AFTER 5 DAYS 12/30/18 Blood Culture - Final, Complete NO GROWTH AFTER 5 DAYS 12/29/18 Blood Culture - Final, Complete Staph.aureus Methicillin Resis 12/29/18 Blood Culture - Final, Complete Staphylococcus Epidermidis 12/29/18 MRSA Screen - Final, Complete Staph.aureus Methicillin Resis 12/29/18 Respiratory Virus Panel (PCR) (RAD[facility]) - Final, Complete ABAD HASKINS PGY-1 Jan 05, 2019 15:51 NA SIDDIQUI MD Jan 06, 2019 12:42
[2019-01-05] MEDS: FOLIC ACID 1 MG TAB PO SCH (20:53)
[2019-01-05] MEDS: EZETIMIBE 10 MG TAB (ZETIA) PO SCH (20:54)
[2019-01-05 22:00] VITALS: BP 119/65
[2019-01-06] MEDS: SODIUM CHLORIDE 0.9% INJ 10 ML SYR IV SCH ×2 (05:43→09:44)
[2019-01-06] MEDS: ACETAMINOPH W/CODEINE #3 TAB UD PO PRN ×3 (05:44→18:02)
[2019-01-06 06:00] VITALS: BP 126/74
[2019-01-06] MEDS ORDERED: SODIUM CHLORIDE 0.9% INJ 10 ML SYR IV PRN (06:00)
[2019-01-06 07:37] LABS: HEMATOCRIT 34.5 % (36.0-47.0); HEMOGLOBIN 10.1 g/dl (12.0-15.5); MEAN CORPUSCULAR HEMOGLOBIN 24.2 pg (27.0-33.0); MEAN CORPUSCULAR HGB CONC 29.3 g/dl (32.0-36.5); MEAN CORPUSCULAR VOLUME 82.5 fl (80.0-96.0); PLATELET COUNT, AUTOMATED 359 10^3/uL (150-450); RED BLOOD COUNT 4.18 10^6/uL (4.00-5.40)
[2019-01-06 07:58] LABS: BLOOD UREA NITROGEN 18 MG/DL (7-18); CALCIUM LEVEL 9.7 MG/DL (8.8-10.2); CARBON DIOXIDE LEVEL 27 MEQ/L (21-32); CHLORIDE LEVEL 101 MEQ/L (98-107); CREATININE FOR GFR 0.67 MG/DL (0.55-1.30); GLOMERULAR FILTRATION RATE > 60.0 (>32); GLUCOSE, FASTING 144 MG/DL (70-100); POTASSIUM SERUM 5.8 MEQ/L (3.5-5.1); SODIUM LEVEL 136 MEQ/L (136-145)
[2019-01-06] MEDS: VANCOMYCIN HCL 1,000 MG, VIAL MATE ADAPTER 1 EACH in D5W 250 ML IV SCH (08:05)
[2019-01-06] MEDS: HumaLOG INSULIN (NovoLOG) PER UNIT SC SCH ×4 (08:06→21:00)
[2019-01-06] MEDS: HEPARIN SOD (PORCINE) 5000 UNITS/ML VIAL SC SCH ×2 (08:06→22:41)
[2019-01-06] MEDS: guaiFENesin ER 600 MG TAB PO SCH ×2 (08:07→22:42)
[2019-01-06] MEDS: ASPIRIN 81 MG ENTERIC TAB PO SCH (08:07)
[2019-01-06] MEDS: SPIRONOLACTONE 25 MG TAB PO SCH (08:07)
[2019-01-06] MEDS: METOPROLOL SUCC (TopROL XL) 50MG **XL** TAB PO SCH ×2 (08:07→22:42)
[2019-01-06] MEDS: allopurinoL 300 MG TAB PO SCH (08:08)
[2019-01-06] MEDS: CLOBETASOL PROPIONATE EMOLLIENT 0.05% CR 60 GM TOP SCH ×2 (08:08→21:00)
[2019-01-06] MEDS: DIGOXIN 0.125 MG TAB PO SCH (08:08)
[2019-01-06] MEDS: NYSTATIN 100,000 UNITS/GM TOPICAL PWD 15 GM TOP SCH (08:08)
[2019-01-06] MEDS: EUCERIN 120GM CREAM TOP SCH ×2 (08:08→22:43)
[2019-01-06 11:27] LABS: BLOOD UREA NITROGEN 20 MG/DL (7-18); CALCIUM LEVEL 9.4 MG/DL (8.8-10.2); CARBON DIOXIDE LEVEL 28 MEQ/L (21-32); CHLORIDE LEVEL 99 MEQ/L (98-107); CREATININE FOR GFR 0.78 MG/DL (0.55-1.30); GLOMERULAR FILTRATION RATE > 60.0 (>32); GLUCOSE, FASTING 174 MG/DL (70-100); POTASSIUM SERUM 4.9 MEQ/L (3.5-5.1); SODIUM LEVEL 134 MEQ/L (136-145)
[2019-01-06 12:31] LABS: HEMATOCRIT 33.4 % (36.0-47.0); HEMOGLOBIN 9.9 g/dl (12.0-15.5); MEAN CORPUSCULAR HEMOGLOBIN 24.5 pg (27.0-33.0); MEAN CORPUSCULAR HGB CONC 29.6 g/dl (32.0-36.5); MEAN CORPUSCULAR VOLUME 82.7 fl (80.0-96.0); PLATELET COUNT, AUTOMATED 339 10^3/uL (150-450); RED BLOOD COUNT 4.04 10^6/uL (4.00-5.40); WHITE BLOOD COUNT 25.4 10^3/uL (4.0-10.0)
[2019-01-06 14:00] VITALS: BP 122/69
--- NOTE | 2019-01-06 20:35 | REP ---
PICC line insertion under ultrasound guidance. The procedure was performed by MALINA Woods, under the direct supervision of Dr. Ambriz. The risks and benefits of the procedure were explained to the patient and informed consent was obtained the verbally and written. Directly prior to the start of the procedure, a formal timeout was completed in the procedure room. The right brachial vein was localized using ultrasound guidance. The skin was prepped and draped in the sterile fashion. 2.5 ml 1% lidocaine was used as a local anesthetic. Using ultrasound guidance the right brachial vein was cannulated and a 0.018 guidewire was inserted and advanced to the SVC using fluoroscopic guidance. The needle was removed and a 4.5 [place] dilator and peel-away sheath was inserted over the guidewire. A 4.5 [place] single lumen catheter was cut to the length of 35 cm. The dilator was removed and the catheter was inserted over the guide wire with the tip ending in the SVC. The peel-away sheath was removed and the catheter was flushed with heparinized saline as per hospital protocol. The catheter was affixed to the skin and a sterile dressing was applied. The patient tolerated the procedure well and there were no immediate complications. 0.3 minutes of fluoroscopy time was utilized for this procedure. Some fluoroscopic images are performed with last image hold technology. These images require no additional radiation. Reviewed by MALINA Tidwell 01/06/2019 08:22 A Electronically Signed by Max Ambriz MD 01/06/2019 08:26 P
[2019-01-06 22:00] VITALS: BP 127/75
--- NOTE | 2019-01-06 22:03 | IPNPDOC ---
Subjective Date Seen The patient was seen on 01/06/19. Subjective Chief Complaint/HPI Patient reports her appetite is not as good as yesterday. She is eating less. Patient reports no bowel movements overnight. Patient will be meeting with a transfusion specialist for home care for IV antibiotics using a PICC line. PICC line is currently in patient's right arm and she states she is tolerating it just fine. Patient had one incontinent void overnight. Patient still has chronic right-sided anterior somatic pain around ribs 7-10. Patient also is complaining of chronic cough and is unable to produce sputum. Patient denies feeling feverish, headache, chills, chest pain, chest pressure, shortness of breath, increased work of breathing, abdominal pain, feeling nauseated, vomiting or lower extremity edema. Objective Physical Examination General Exam: Positive: Alert, Cooperative, No Acute Distress Neck Exam: Positive: Supple, +2 carotid pulse wo bruit Chest Exam: Positive: Clear to auscultation (right LL crackles); Negative: Normal air movement (diminshed air movement), Rhonchi, Wheezing Heart Exam: Positive: Rate Normal (rate controlled), Irregular Rhythm (irregularly irregular), Normal S1, Normal S2; Negative: Murmurs Abdomen Exam: Positive: Normal bowel sounds (in all four quadrants), Soft (mildly distended); Negative: Tenderness Extremity Exam: Positive: Normal pulses (2+ radial and posterior tibial); Negative: Edema Skin Exam: Positive: Other skin issue (b/l LE venous ulcerations tender to light palpation); Negative: Rash Neuro Exam: Positive: Normal Speech, Strength at 5/5 X4 ext, Sensation Intact (b/l UE and LE to light touch) Assessment /Plan Assessment Atrial fibrillation s/p rapid ventricular response -pt is currently hemodynamically stable with controlled rate and blood pressure -c/w metoprolol and digoxin; digoxin is at therapeutic levels -c/w heparin for anti-coagulation and ASA for anti-platelet effects associated with increased thromboembolic risk of a-fib 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 continue to trend CRP -Dr. Heredia (infectious disease) consulted. Agreed to not obtain PRATIMA, but to insert peripherally inserted central catheter (PICC) for home IV administration of 6-week vancomycin course once pt is stable enough to be discharged. -chest ct -T7-8 intervertebral discitis that was supported by T7-8 focal blood pooling on triple phase bone scan. -c/w vancomycin regimen Cough likely 2/2 suspected right lower lobe pna -chest ct showed worsening rt lower lobe pna, as well as left upper lobe and lower lobe consolidation. -c/w vancomycin -pt's current O2 sat is 96% RA -mucinex was added to medication regimen to help break up airway mucous Chronic systolic/diastolic CHF (EF: 50%) -pt has no visible edema or JVD, and lungs were cta on exam -c/w spironolactone administration NIDDM (DM II) -c/w ISS administration protocol Chronic gout -c/w colchicine and allopurinol administration CKD Type III -Creatine baseline: 1.0-1.1 Dyslipidemia -c/w ezetimibe administration Chronic T10 compression fracture -c/w with outpt pain medication Rt hip fracture sustained in 2013 -c/w outpt pain medication DVT prophylaxis -c/w heparin SQ Disposition: Possible discharge in the AM, continue with IV Vanc at home for 6 weeks. I saw and evaluated the patient. I agree with the findings and plan of care as documented in the above note Plan/VTE VTE Prophylaxis Ordered?: Yes VS, I&O, 24H, Fishbone Vital Signs/I&O Vital Signs Date Time Temp Pulse Resp B/P (MAP) Pulse Ox O2 Delivery O2 Flow Rate FiO2 01/06/19 18:32 20 01/06/19 14:00 98.8 94 122/69 (86) 95 I&O- Last 24 Hours up to 6 AM 01/06/19 06:00 Intake Total 940 ml Balance 940 ml Laboratory Data 24H LABS Laboratory Tests 2 01/06/19 07:23: Nucleated Red Blood Cells % (auto) 0.0, Anion Gap 8, Glomerular Filtration Rate > 60.0, Blood Urea Nitrogen 18, Creatinine 0.67, Sodium Level 136, Potassium Level 5.8H, Chloride Level 101, Carbon Dioxide Level 27, Calcium Level 9.7, C- Reactive Protein, Quantitative 11.40H 01/06/19 07:36: Bedside Glucose (Misc Panel) 148H 01/06/19 10:42: Anion Gap 7L, Glomerular Filtration Rate > 60.0, Blood Urea Nitrogen 20H, Creatinine 0.78, Sodium Level 134L, Potassium Level 4.9, Chloride Level 99, Carbon Dioxide Level 28, Calcium Level 9.4 01/06/19 11:43: Bedside Glucose (Misc Panel) 157H 01/06/19 12:19: Nucleated Red Blood Cells % (auto) 0.0 01/06/19 17:23: Bedside Glucose (Misc Panel) 180H 01/06/19 21:21: Bedside Glucose (Misc Panel) 157H CBC/BMP Laboratory Tests 01/06/19 07:23 Red Blood Count 4.18, Mean Corpuscular Volume 82.5, Mean Corpuscular Hemoglobin 24.2 L, Mean Corpuscular Hemoglobin Concent 29.3 L, Red Cell Distribution Width 18.1 H, Calcium Level 9.7 01/06/19 10:42 Calcium Level 9.4 01/06/19 12:19 Red Blood Count 4.04, Mean Corpuscular Volume 82.7, Mean Corpuscular Hemoglobin 24.5 L, Mean Corpuscular Hemoglobin Concent 29.6 L, Red Cell Distribution Width 17.9 H Microbiology Microbiology 01/02/19 Blood Culture - Preliminary, Resulted No Growth after 72 hours. All specime... 01/02/19 Blood Culture - Preliminary, Resulted No Growth after 72 hours. All specime... 12/30/18 Blood Culture - Final, Complete NO GROWTH AFTER 5 DAYS 12/30/18 Blood Culture - Final, Complete NO GROWTH AFTER 5 DAYS 12/29/18 Blood Culture - Final, Complete Staph.aureus Methicillin Resis 12/29/18 Blood Culture - Final, Complete Staphylococcus Epidermidis 12/29/18 MRSA Screen - Final, Complete Staph.aureus Methicillin Resis 12/29/18 Respiratory Virus Panel (PCR) (RADHA) - Final, Complete ABAD HASKINS PGY-1 Jan 06, 2019 22:03 NA SIDDIQUI MD Jan 08, 2019 13:19
[2019-01-06] MEDS: EZETIMIBE 10 MG TAB (ZETIA) PO SCH (22:42)
[2019-01-06] MEDS: FOLIC ACID 1 MG TAB PO SCH (22:42)
[2019-01-07] MEDS: ACETAMINOPH W/CODEINE #3 TAB UD PO PRN ×2 (02:46→10:46)
[2019-01-07 06:00] VITALS: BP 120/70
[2019-01-07] MEDS: SODIUM CHLORIDE 0.9% INJ 10 ML SYR IV SCH (06:00)
[2019-01-07 06:03] LABS: HEMATOCRIT 31.3 % (36.0-47.0); HEMOGLOBIN 9.3 g/dl (12.0-15.5); MEAN CORPUSCULAR HEMOGLOBIN 25.1 pg (27.0-33.0); MEAN CORPUSCULAR HGB CONC 29.7 g/dl (32.0-36.5); MEAN CORPUSCULAR VOLUME 84.4 fl (80.0-96.0); PLATELET COUNT, AUTOMATED 327 10^3/uL (150-450); RED BLOOD COUNT 3.71 10^6/uL (4.00-5.40); WHITE BLOOD COUNT 19.7 10^3/uL (4.0-10.0)
[2019-01-07 06:47] LABS: BLOOD UREA NITROGEN 23 MG/DL (7-18); CALCIUM LEVEL 9.4 MG/DL (8.8-10.2); CARBON DIOXIDE LEVEL 26 MEQ/L (21-32); CHLORIDE LEVEL 101 MEQ/L (98-107); CREATININE FOR GFR 0.76 MG/DL (0.55-1.30); GLOMERULAR FILTRATION RATE > 60.0 (>32); GLUCOSE, FASTING 151 MG/DL (70-100); POTASSIUM SERUM 4.8 MEQ/L (3.5-5.1); SODIUM LEVEL 134 MEQ/L (136-145)
[2019-01-07] MEDS: HumaLOG INSULIN (NovoLOG) PER UNIT SC SCH ×2 (08:19→12:00)
[2019-01-07] MEDS: VANCOMYCIN HCL 1,000 MG, VIAL MATE ADAPTER 1 EACH in D5W 250 ML IV SCH (08:20)
[2019-01-07] MEDS: ASPIRIN 81 MG ENTERIC TAB PO SCH (08:20)
[2019-01-07] MEDS: SPIRONOLACTONE 25 MG TAB PO SCH (08:20)
[2019-01-07] MEDS: HEPARIN SOD (PORCINE) 5000 UNITS/ML VIAL SC SCH (08:20)
[2019-01-07] MEDS: DIGOXIN 0.125 MG TAB PO SCH (08:20)
[2019-01-07 08:21] VITALS: BP 120/70
[2019-01-07] MEDS: EUCERIN 120GM CREAM TOP SCH (08:21)
[2019-01-07] MEDS: guaiFENesin ER 600 MG TAB PO SCH (08:21)
[2019-01-07] MEDS: METOPROLOL SUCC (TopROL XL) 50MG **XL** TAB PO SCH (08:21)
[2019-01-07] MEDS: allopurinoL 300 MG TAB PO SCH (08:21)
[2019-01-07] MEDS: NYSTATIN 100,000 UNITS/GM TOPICAL PWD 15 GM TOP SCH (08:22)
[2019-01-07] MEDS: CLOBETASOL PROPIONATE EMOLLIENT 0.05% CR 60 GM TOP SCH (08:22)
[2019-01-07 08:43] LABS: VANCOMYCIN RANDOM 24.7 UG/ML
[2019-01-07 09:00] VITALS: BP 130/65
[2019-01-07] MEDS ORDERED: DIGO0.123 PO (11:02)
[2019-01-07] MEDS ORDERED: TYLETAB14 PO (12:59)
[2019-01-08] MEDS ORDERED: VANCOMYCIN HCL 750 MG, VIAL MATE ADAPTER 1 EACH in D5W 250 ML IV SCH (14:00)
--- NOTE | 2019-01-09 19:21 | DS.PDOC ---
Discharge Summary General Date of Admission Dec 29, 2018 at 15:19 Date of Discharge 01/07/2019 Primary Care Physician: Aurelio Gamez MD Attending Physician: NA SIDDIQUI MD Specialist/Consultants Involve: Frida Heredia MD Discharge Summary PROCEDURES PERFORMED DURING STAY: Placement of peripherally inserted central catheter (PICC) with ultrasound guidance, 01/05. ADMITTING DIAGNOSES: 1. Atrial fibrillation with rapid ventricular response. DISCHARGE DIAGNOSES: 1. Atrial fibrillation s/p rapid ventricular response 2. 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 Cough likely 2/2 suspected right lower lobe pna 4. Chronic systolic/diastolic CHF (EF: 50%) 5. NIDDM (DM II) 6. Chronic gout 7. CKD Type III 8. Dyslipidemia 9. Chronic T10 compression fracture 10. Rt hip fracture sustained in 2013 COMPLICATIONS/CHIEF COMPLAINT: Atrial Fibrillation With Rvr, Pneumonia. HISTORY OF PRESENT ILLNESS: Anabelle is an 88-year-old female with a PMHx of atrial fibrillation (on aspirin, not full anticoagulation), Systolic / Diastolic CHF (ejection fraction: 50%), DLP, stage III chronic kidney disease, NIDDM, Chronic T10 compression fracture, osteoporosis, and unrepaired 2014 R hip fracture who presented to the ER after she was found to have an elevated heart rate. She is a poor historian and daughter, a nurs, was present on presentation to provide details. Her daughter noted that this past Friday (12/25), her heart rate was elevated. Her daughter contacted EMS services for further evaluation. Anabelle refused to go to the emergency room and continued to experience episodes of elevated heart rate. Her family then contacted her press operator carbon blocks, Dr. Saravia who advised the patient to go to the ED for further evaluation. In the ED, Anabelle was found to have an elevated heart rate and she was in atrial fibrillation with rapid ventricular response. She was given a dose of metoprolol tartrate 50 mg PO and metoprolol IV 5 mg x 2 dose. Her heart rate improved from 160 to 120bpm. Her systolic blood pressure slowly declined into the 90s. Patient was recently at the hospital for MRSA pneumonia and VRE UTI from 11/09-11/23/18. At the time the hospitalist team agreed to admit her and oversee her inpatient care, she was asymptomatic without any lightheadedness, dizziness, chest pain, SOB, palpitations, headache, nausea, vomiting, abdominal pain, constipation or diarrhea. She reported 4 episodes of diarrhea on the previous Friday (12/25). Patient also denied urinary discomfort or fevers at home. She did report some chills associated with sweats, and a cough with clear/ cummins sputum. Patient reported her appetite is normal and denied any recent weight changes. HOSPITAL COURSE: After Anabelle was admitted to the care of the hospitalist team, she remained asymptomatic with regards to her atrial fibrillation. Her heart rate was controlled in the 90s on metoprolol for the duration of her inpatient stay. Due to her previous admission in October 2018 for MRSA pneumonia and VRE UTI, patient received blood cultures on date of admission (12/29). These cultures returned positive for MRSA. Infectious disease (Dr. Heredia) was consulted to determine possible source of her bacteremia and evaluate possibility of endocarditis. After examining the patient, Dr. Heredia ordered a chest CT as well as placement of a peripherally inserted central catheter (PICC)for long-term IV vancomycin administration. Anabelle's chest CT revealed progressing right lower lobe pneumonia as well as T7-8 discitis. Anabelle will complete 64 weeks' of IV vancomycin administration running through February 10. She will receive at home 24 hour care and her daughter, a nurse, was advised of all the precautions and instructions regarding a PICC line. DISCHARGE MEDICATIONS: Please see below. ALLERGIES: Please see below. PHYSICAL EXAMINATION ON DISCHARGE: VITAL SIGNS: Please see below. General Exam: Positive: Alert, Cooperative, No Acute Distress Neck Exam: Positive: Supple, +2 carotid pulse wo bruit Chest Exam: Positive: Clear to auscultation (right LL crackles); Negative: Normal air movement (diminshed air movement), Rhonchi, Wheezing Heart Exam: Positive: Rate Normal (rate controlled), Irregular Rhythm (irregularly irregular), Normal S1, Normal S2; Negative: Murmurs Abdomen Exam: Positive: Normal bowel sounds (in all four quadrants), Soft (mildly distended); Negative: Tenderness Extremity Exam: Positive: Normal pulses (2+ radial and posterior tibial); Negative: Edema Skin Exam: Positive: Other skin issue (b/l LE venous ulcerations tender to light palpation); Negative: Rash Neuro Exam: Positive: Normal Speech, Strength at 5/5 X4 ext, Sensation Intact (b/l UE and LE to light touch) LABORATORY DATA: Please see below. IMAGING: Bone scan of thoracolumbar region, 01/05 showed focal blood pooling at the approximately T7-8 level. The findings are suggestive of acute discitis and possible osteomyelitis at the T7-T8 level. Chest CT with contrast, 01/05- showed 1. progressive consolidation in the right lower lobe consistent with increased pneumonia. No cavitary changes. 2. Collapse and consolidation which appear to be chronic in the left upper lobe and left lower lobe. 3. New small right pleural effusion. 4. Endplate destruction with paravertebral soft-tissue swelling at the T7-8 intervertebral disc level as an interval change from recent study November 23, 2018. Findings suggestive of acute fracture is thoracic discitis. Chest x-ray, two-view, lateral, PA, 12/31 showed diffuse chronic changes and cardiomegaly. Subtle superimposed acute atelectasis cannot be excluded. Chest x-ray, two-view, lateral, PA, 12/29 chronic stable changes. Subtle superimposed right lower lobe atelectasis/early infiltrate cannot be excluded. PROGNOSIS: Guarded ACTIVITY: As tolerated. DIET: As tolerated DISPOSITION: Home Health Service. DISCHARGE INSTRUCTIONS AND FOLLOW-UP ON OUTPATIENT: 1. Patient should follow up with primary care physician, Dr. Gamez within a week of discharge. 2. Patient will remain on IV vancomycin via PICC line through February 10 for recurrent MRSA bacteremia and discitis - - completing 6 total weeks of adminis tration from end of negative culture. She will be under 24-hour home care monitoring while receiving this medication. Patient's daughter will be in charge home IV antibiotics. 3. Please follow-up in Dr. Heredia's office in 2-3 weeks with infectious disease. 4. Per Dr. Heredia's instructions, patient will have CBC, CMP, CRP, ESR and Vancomycin trough monitored weekly. 5. Patient should ensure she stay compliant with all of her home medications, especially those for atrial fibrillation rate control. 6. If patient experiences an emergent medical condition, she should return to the emergency department DISCHARGE CONDITION: Stable. I saw and evaluated the patient. I agree with the findings and plan of care as documented in the documenters note. I spent 45 minutes coordinating this patient's discharge. Vital Signs/I&Os Vital Signs Date Time Temp Pulse Resp B/P (MAP) Pulse Ox O2 Delivery O2 Flow Rate FiO2 01/07/19 11:16 20 01/07/19 09:00 98.1 86 130/65 (86) 98 Microbiology Microbiology 01/02/19 Blood Culture - Final, Complete NO GROWTH AFTER 5 DAYS 01/02/19 Blood Culture - Final, Complete NO GROWTH AFTER 5 DAYS 12/30/18 Blood Culture - Final, Complete NO GROWTH AFTER 5 DAYS 12/30/18 Blood Culture - Final, Complete NO GROWTH AFTER 5 DAYS Discharge Medications Scheduled Allopurinol (Zyloprim) 300 Mg Tab, 300 MG PO DAILY, (Reported) Aspirin (Aspirin EC) 81 Mg Tab, 81 MG PO DAILY, (Reported) Clobetasol Propionate (Clobetasol Emollient 0.05% Crm) 60 Gm Cream..g., 1 DOSE TOP BID, (Reported) USES ON LEGS Digoxin (Digoxin) 125 Mcg Tablet, 0.125 MG PO DAILY Ezetimibe (Zetia) 10 Mg Tab, 10 MG PO QHS, (Reported) Folic Acid (Folic Acid) 1 Mg Tab, 1 MG PO QHS, (Reported) Metoprolol Succinate (Metoprolol Succinate) 50 Mg Tab.er.24h, 50 MG PO BID Spironolactone (Spironolactone) 25 Mg Tab, 25 MG PO DAILY, (Reported) Scheduled PRN Acetaminophen with Codeine (Tylenol with Codeine #3 Tablet) 1 Each Tablet, 2 TABS PO Q6H PRN for PAIN Colchicine (Colchicine) 0.6 Mg Tab, 0.6 MG PO DAILY PRN for GOUT, (Reported) Lanolin Alcohol/Mo/W.pet/[place] (Eucerin Creme) 454 Gm Cream..g., 1 DOSE TOP BID PRN for DRY SKIN, (Reported) USES ON ARMS AND LEGS NEEDED Allergies Coded Allergies: No Known Allergies (Unverified , 05/11/18) ABAD HASKINS PGY-1 Jan 09, 2019 16:19 NA SIDDIQUI MD Jan 20, 2019 15:53
[2019-01-27] MEDS ORDERED: DIGO0.123 PO (14:39)
== END 2019-01-07 12:35 | disposition home health service (06) | DRG 308 ==
LOC: M ED 12:08 → M ED INP 15:19 → M PCU 16:47 → M MS5PR 01-02 18:21
PROVIDERS: ADMIT Internal Medicine; ATTEND Internal Medicine
PROC: 02HV33Z Insertion of Infusion Device into Superior Vena Cava, Percutaneous Approach (ICD-10-PCS; principal; 2019-01-05 07:40)
DX: I48.91 Unspecified atrial fibrillation (principal); J18.9 Pneumonia, unspecified organism; I50.42 Chronic combined systolic (congestive) and diastolic (congestive) heart failure; R78.81 Bacteremia; M46.44 Discitis, unspecified, thoracic region; E78.5 Hyperlipidemia, unspecified; M10.9 Gout, unspecified; E11.9 Type 2 diabetes mellitus without complications; B95.62 Methicillin resistant Staphylococcus aureus infection as the cause of diseases classified elsewhere; Z79.82 Long term (current) use of aspirin; N18.3 Chronic kidney disease, stage 3 (moderate); Z79.899 Other long term (current) drug therapy; Z91.14 Patient's other noncompliance with medication regimen; J44.9 Chronic obstructive pulmonary disease, unspecified

== ENCOUNTER → 2019-01-12 | Outpatient (REF) | payer MEDICARE, OTHER ==
[~2019-01-12] MED LIST changes: +DIGO0.12 PO; +GLIM1TAB PO; -GLIM1TAB4 PO; +GLIM2TAB PO; -GLIM2TAB4 PO; +METO1TAB7 PO; -ZETI10TA16 PO; +ZETI10TA30 PO
[2019-01-12 12:59] LABS: BASO # 0.1 10^3/uL (0.0-0.2); BASO % 0.6 % (0.0-1.0); EOS # 0.4 10^3/uL (0.0-0.50); EOS % 3.4 % (0.0-3.0); HEMATOCRIT 33.2 % (36.0-47.0); HEMOGLOBIN 9.5 g/dl (12.0-15.5); LYMPH # 0.9 10^3/uL (1.5-4.5); LYMPH % 6.7 % (24.0-44.0); MEAN CORPUSCULAR HEMOGLOBIN 24.2 pg (27.0-33.0); MEAN CORPUSCULAR HGB CONC 28.6 g/dl (32.0-36.5); MEAN CORPUSCULAR VOLUME 84.5 fl (80.0-96.0); MONO # 0.7 10^3/uL (0.0-0.8); MONO % 5.1 % (0.0-5.0); NEUTROPHILS # 10.6 10^3/uL (1.8-7.7); NEUTROPHILS % 82.8 % (36.0-66.0); PLATELET COUNT, AUTOMATED 455 10^3/uL (150-450); RED BLOOD COUNT 3.93 10^6/uL (4.00-5.40); WHITE BLOOD COUNT 12.8 10^3/uL (4.0-10.0)
[2019-01-12 13:01] LABS: ALBUMIN 2.4 GM/DL (3.2-5.2); ALT/SGPT 8 U/L (12-78); BILIRUBIN,TOTAL 0.4 MG/DL (0.2-1.0); BLOOD UREA NITROGEN 17 MG/DL (7-18); C REACTIVE PROTEIN QUANTITATIV 3.28 MG/DL (0.00-0.30); CALCIUM LEVEL 9.4 MG/DL (8.8-10.2); CARBON DIOXIDE LEVEL 29 MEQ/L (21-32); CHLORIDE LEVEL 103 MEQ/L (98-107); CREATININE FOR GFR 0.71 MG/DL (0.55-1.30); GLOMERULAR FILTRATION RATE > 60.0 (>32); GLUCOSE, FASTING 203 MG/DL (70-100); POTASSIUM SERUM 4.7 MEQ/L (3.5-5.1); SODIUM LEVEL 138 MEQ/L (136-145); TOTAL PROTEIN 7.2 GM/DL (6.4-8.2); VANCOMYCIN LEVEL TROUGH 16.7 UG/ML (10.0-20.0)
[2019-01-12 14:17] LABS: ERYTHROCYTE SEDIMENTATION RATE 77 mm/hr (0-42)
== END ==
LOC: M SHH 11:54
PROVIDERS: ATTEND Internal Medicine
DX: J15.212 Pneumonia due to Methicillin resistant Staphylococcus aureus (principal)

== ENCOUNTER → 2019-01-19 | Outpatient (REF) | payer MEDICARE, OTHER ==
[2019-01-19 11:33] LABS: BASO # 0.1 10^3/uL (0.0-0.2); BASO % 0.6 % (0.0-1.0); EOS # 0.4 10^3/uL (0.0-0.50); EOS % 4.5 % (0.0-3.0); HEMATOCRIT 31.8 % (36.0-47.0); HEMOGLOBIN 9.1 g/dl (12.0-15.5); LYMPH # 0.8 10^3/uL (1.5-4.5); LYMPH % 8.4 % (24.0-44.0); MEAN CORPUSCULAR HEMOGLOBIN 23.9 pg (27.0-33.0); MEAN CORPUSCULAR HGB CONC 28.6 g/dl (32.0-36.5); MEAN CORPUSCULAR VOLUME 83.7 fl (80.0-96.0); MONO # 0.5 10^3/uL (0.0-0.8); NEUTROPHILS # 7.2 10^3/uL (1.8-7.7); NEUTROPHILS % 80.1 % (36.0-66.0); PLATELET COUNT, AUTOMATED 234 10^3/uL (150-450); WHITE BLOOD COUNT 8.9 10^3/uL (4.0-10.0)
[2019-01-19 12:10] LABS: ERYTHROCYTE SEDIMENTATION RATE 70 mm/hr (0-42)
[2019-01-19 12:18] LABS: ALBUMIN 2.4 GM/DL (3.2-5.2); ALT/SGPT 9 U/L (12-78); BILIRUBIN,TOTAL 0.5 MG/DL (0.2-1.0); BLOOD UREA NITROGEN 19 MG/DL (7-18); C REACTIVE PROTEIN QUANTITATIV 3.96 MG/DL (0.00-0.30); CALCIUM LEVEL 9.4 MG/DL (8.8-10.2); CARBON DIOXIDE LEVEL 28 MEQ/L (21-32); CHLORIDE LEVEL 106 MEQ/L (98-107); CREATININE FOR GFR 0.56 MG/DL (0.55-1.30); GLOMERULAR FILTRATION RATE > 60.0 (>32); GLUCOSE, FASTING 139 MG/DL (70-100); POTASSIUM SERUM 4.2 MEQ/L (3.5-5.1); SODIUM LEVEL 140 MEQ/L (136-145); TOTAL PROTEIN 6.7 GM/DL (6.4-8.2); VANCOMYCIN LEVEL TROUGH 17.2 UG/ML (10.0-20.0)
== END ==
LOC: M SHH 10:41
PROVIDERS: ATTEND Internal Medicine
DX: J15.212 Pneumonia due to Methicillin resistant Staphylococcus aureus (principal)

== ENCOUNTER → 2019-01-26 | Outpatient (REF) | payer MEDICARE, OTHER ==
[~2019-01-26] MED LIST changes: +FENT12DI8 TOP; +VANC1INJ IV
[2019-01-26 11:50] LABS: BASO # 0.1 10^3/uL (0.0-0.2); BASO % 1.1 % (0.0-1.0); EOS # 0.1 10^3/uL (0.0-0.50); EOS % 1.9 % (0.0-3.0); HEMATOCRIT 31.6 % (36.0-47.0); HEMOGLOBIN 9.1 g/dl (12.0-15.5); LYMPH # 0.6 10^3/uL (1.5-4.5); LYMPH % 8.6 % (24.0-44.0); MEAN CORPUSCULAR HEMOGLOBIN 24.2 pg (27.0-33.0); MEAN CORPUSCULAR HGB CONC 28.8 g/dl (32.0-36.5); MONO # 0.5 10^3/uL (0.0-0.8); MONO % 7.5 % (0.0-5.0); NEUTROPHILS # 5.8 10^3/uL (1.8-7.7); NEUTROPHILS % 80.3 % (36.0-66.0); PLATELET COUNT, AUTOMATED 282 10^3/uL (150-450); RED BLOOD COUNT 3.76 10^6/uL (4.00-5.40); WHITE BLOOD COUNT 7.2 10^3/uL (4.0-10.0)
[2019-01-26 12:32] LABS: ERYTHROCYTE SEDIMENTATION RATE 107 mm/hr (0-42)
[2019-01-26 12:35] LABS: ALBUMIN 2.5 GM/DL (3.2-5.2); ALT/SGPT 13 U/L (12-78); BILIRUBIN,TOTAL 0.5 MG/DL (0.2-1.0); BLOOD UREA NITROGEN 24 MG/DL (7-18); CALCIUM LEVEL 9.6 MG/DL (8.8-10.2); CARBON DIOXIDE LEVEL 27 MEQ/L (21-32); CHLORIDE LEVEL 105 MEQ/L (98-107); CREATININE FOR GFR 0.64 MG/DL (0.55-1.30); GLOMERULAR FILTRATION RATE > 60.0 (>32); GLUCOSE, FASTING 97 MG/DL (70-100); POTASSIUM SERUM 4.1 MEQ/L (3.5-5.1); SODIUM LEVEL 140 MEQ/L (136-145); TOTAL PROTEIN 6.9 GM/DL (6.4-8.2); VANCOMYCIN LEVEL TROUGH 22.5 UG/ML (10.0-20.0)
== END ==
LOC: M SHH 11:18
PROVIDERS: ATTEND Internal Medicine Infectious Disease
DX: J15.212 Pneumonia due to Methicillin resistant Staphylococcus aureus (principal)

== ENCOUNTER 2019-01-27 11:12 | Inpatient (IN) | payer MEDICARE, OTHER ==
[~2019-01-27] VITALS: Ht 157.5 cm; Wt 52.5 kg
[~2019-01-27 11:12] MED LIST changes: -FENT12DI8 TOP; -VANC1INJ IV; +ZETI10TA16 PO; -ZETI10TA30 PO
[2019-01-27] MEDS ORDERED: FENT12DI8 TOP (11:39)
[2019-01-27] MEDS ORDERED: VANC1INJ IV (11:39)
[2019-01-27] MEDS ORDERED: NS 1,000 ML IV SCH (12:25)
[2019-01-27] MEDS ORDERED: KETOROLAC 30 MG/ML VIAL (J1885) IV ONE ×2 (12:30→14:30)
[2019-01-27] MEDS ORDERED: IPRATROPIUM 0.5MG/ALBUTEROL 2.5MG INH SOL UD 3ML (DUONEB)(J7620) NEB ONE (12:30)
[2019-01-27] MEDS ORDERED: ASPIRIN 81 MG CHEW TABLET PO ONE (12:30)
--- NOTE | 2019-01-27 13:16 | REP ---
Clinical: Cough and dyspnea. Comparison: 12/31/2018. Findings: Mediastinum and cardiac silhouette are stable. Lung saldivar demonstrate diffuse chronic interstitial changes. Superimposed lower lobe infiltrates and atelectasis are again identified and essentially unchanged. No pneumothorax. Right-sided PICC line identified with tip in the SVC. Skeletal structures stable. Impression: Bibasilar consolidation/atelectasis unchanged from prior examination. Electronically Signed by Luis F Cannon MD 01/27/2019 01:07 P
[2019-01-27 13:23] LABS: BASO % 0.4 % (0.0-1.0); EOS % 0.4 % (0.0-3.0); HEMATOCRIT 33.4 % (36.0-47.0); HEMOGLOBIN 9.7 g/dl (12.0-15.5); LYMPH # 0.5 10^3/uL (1.5-4.5); LYMPH % 4.8 % (24.0-44.0); MEAN CORPUSCULAR HEMOGLOBIN 24.5 pg (27.0-33.0); MEAN CORPUSCULAR VOLUME 84.3 fl (80.0-96.0); MONO # 0.8 10^3/uL (0.0-0.8); MONO % 7.5 % (0.0-5.0); NEUTROPHILS # 8.6 10^3/uL (1.8-7.7); NEUTROPHILS % 86.2 % (36.0-66.0); PLATELET COUNT, AUTOMATED 268 10^3/uL (150-450); RED BLOOD COUNT 3.96 10^6/uL (4.00-5.40)
[2019-01-27 13:50] LABS: ALBUMIN 2.5 GM/DL (3.2-5.2); ALT/SGPT 13 U/L (12-78); BILIRUBIN,DIRECT 0.1 MG/DL (0.0-0.2); BILIRUBIN,TOTAL 0.4 MG/DL (0.2-1.0); BLOOD UREA NITROGEN 28 MG/DL (7-18); CALCIUM LEVEL 9.6 MG/DL (8.8-10.2); CARBON DIOXIDE LEVEL 28 MEQ/L (21-32); CHLORIDE LEVEL 104 MEQ/L (98-107); CREATININE FOR GFR 0.76 MG/DL (0.55-1.30); GLOMERULAR FILTRATION RATE > 60.0 (>32); GLUCOSE, FASTING 282 MG/DL (70-100); NT-PRO BNP 3842 PG/ML (<450); POTASSIUM SERUM 4.4 MEQ/L (3.5-5.1); SODIUM LEVEL 138 MEQ/L (136-145); TOTAL PROTEIN 7.3 GM/DL (6.4-8.2)
[2019-01-27] MEDS ORDERED: ACETAMINOPHEN 325 MG TAB PO ONE (14:15)
[2019-01-27] MEDS ORDERED: PILL CUTTER 1 EACH XX ONE (14:32)
[2019-01-27] MEDS ORDERED: DIGO0.12 PO (14:39)
[2019-01-27] MEDS ORDERED: METO1TAB7 PO (14:39)
[2019-01-27] MEDS ORDERED: TYLETAB14 PO (14:39)
[2019-01-27] MEDS ORDERED: FLUID PLACE HOLDER IV ONE (14:45)
[2019-01-27] MEDS ORDERED: VANCOMYCIN HCL IV ONE (14:45)
--- NOTE | 2019-01-27 14:52 | HPEPDOC ---
[facility] Medical History & Physical Date of Admission Jan 27, 2019 Date of Service: Jan 27, 2019 Primary Care Physician: Anthony Mckenzie MD Attending Physician: ISIDRO MURILLO MD History and Physical CHIEF COMPLAINT: chest pain. HISTORY OF PRESENT ILLNESS: Ms. Hernandez is a an 88 old female who is complaining of of persistent, sharp, nonradiating left-sided chest pain that has been present since her previous admission for pneumonia. Associated symptoms include productive cough and diarrhea that began yesterday. She is only had one episode of loose stools today. She denies having fevers, chills, or poor appetite. The patient was admitted earlier on this month for management of A. fib with RVR. She had a CT of the chest which showed progressing right lower lobe pneumonia secondary to MRSA. Per discussion with ID, she was started on IV IV vancomycin for a total of 64 weeks with plans to complete the course of treatment on February 10. She was evaluated today by a home RN today noted that the patient had rhonchi and sent her back to the hospital for evaluation. The patient is currently accompanied by a family friend. REVIEW OF SYSTEMS: 12 point review of systems negative except as listed in HPI PAST MEDICAL SURGICAL HISTORY: 1 Chronic Systolic / Diastolic CHF 2 Chronic A. fib 3 Dyslipidemia 4 hx of NIDDM2 5 CKD3, 6 Osteoporosis / Chronic T10 compression fracture is bedbound 7 Arthritis 8 hx of unrepaired R hip fracture (2013) 9 s/p Hysterectomy and bladder sling 10 Bilateral cataract surgery SOCIAL HISTORY: -Tobacco -Alcohol -Drugs +lives alone. FAMILY HISTORY: Stomach Ulcers Pneumonia Congestive heart failure ALLERGIES: Please see below. HOME MEDICATIONS: Please see below. PHYSICAL EXAMINATION: VITAL SIGNS: Temperature 98.8, pulse 90, respiratory rate 18, blood pressure 90/60, pulse oximetry 95% on room air GENERAL APPEARANCE: Slim built, well-developed, appears stated age HEENT: Normocephalic, atraumatic. Mucous members are moist and pink CARDIOVASCULAR:. Heart rate irregularly irregular, radial pulse. Also irregularly irregular. LUNGS:, The patient is occasionally coughing during exam, she is not using accessory muscles, the lips are acyanotic, there are expiratory rhonchi bilaterally. ABDOMEN: The abdomen is soft and not tender on palpation, bowel sounds are hypoactive. MUSCULOSKELETAL: The patient appears to have kyphoscoliosis . The range of motion is intact in upper extremities EXTREMITIES: Her extremities are warm and well-perfused. NEUROLOGICAL: Cranial nerves II-12 grossly intact . Auditory. Speech is not dysarthric. PSYCHIATRIC:. The patient is alert and oriented, she is able to understand and follow commands LABORATORY DATA: See below IMAGING: Chest xray shows "Bibasilar consolidation/atelectasis unchanged from prior examination." MICROBIOLOGY: Please see below. ASSESSMENT: Mrs. Hernandez is an 88 year old female with a past medical history that includes chronic diastolic/systolic congestive heart failure, chronic atrial fibrillation, nlb-eqepwxd-sehvfzlrn diabetes, CKD3, Dyslipidemia, chronic T10 compression fracture /osteoporosis, and osteo-arthritis who is admitted to determine if her MRSA pneumonia is worsening, from an evaluation of diarrhea, and possible placement. PLAN: 1. MRSA Pneumonia The patient's blas symptoms include persistence of her cough and her chest pain. She does not have any SIRs criteria and oxygen saturation and respiratory rate are normal on room air The chest x-ray was reviewed and per radiologist, appears similar to the previous chest x-rays The CURB 65 score to determine if pt should be admitted is two which puts her at moderate risk with recommendations for inpatient or outpatient treatment with close follow-up Plan: Admit to general medical floor, continue with IV vancomycin, add levofloxacin pending pro-calcitonin, f/u sputum / 500ml NS/ we'll consider reconsulting ID and CT scan of the chest if she worsens 2. Diarrhea Patient is at risk for C. difficile because of prolonged course of antibiotics Plan: contact precautions, follow-up C. difficile 3.Chronic Systolic / Diastolic CHF Clinically compensated. Plan: Continue with metoprolol, and spironolactone, 4.Chronic A. fib Plan: Continue with metoprolol and digitoxin / not on AC for unclear reasons 5 Dyslipidemia. Plan continue with Zetia 6 . History of NIDDM2 -Last A1C in April 2018 was 5.6% Serum glucose elevated Plan: f/u accuchecks, A1C & add SS insulin 7 CKD3. Plan follow up BMP daily 8 Osteoporosis / Chronic T10 compression fracture / Arthritis. Plan: pain meds DVT prophylaxis with heparin. Disposition we'll consult social media specialist to discuss placement in a half-way Vital Signs Vital Signs Date Time Temp Pulse Resp B/P (MAP) Pulse Ox O2 Delivery O2 Flow Rate FiO2 01/27/19 14:46 98.2 113 24 153/109 (124) 96 Room Air Laboratory Data Labs 24H Laboratory Tests 2 01/27/19 13:13: Immature Granulocyte % (Auto) 0.7, White Blood Count 10.0, Red Blood Count 3.96L, Hemoglobin 9.7L, Hematocrit 33.4L, Mean Corpuscular Volume 84.3, Mean Corpuscular Hemoglobin 24.5L, Mean Corpuscular Hemoglobin Concent 29.0L, Red Cell Distribution Width 18.6H, Platelet Count 268, Neutrophils (%) (Auto) 86.2H, Lymphocytes (%) (Auto) 4.8L, Monocytes (%) (Auto) 7.5H, Eosinophils (%) (Auto) 0.4, Basophils (%) (Auto) 0.4, Neutrophils # (Auto) 8.6H, Lymphocytes # (Auto) 0.5L, Monocytes # (Auto) 0.8, Eosinophils # (Auto) 0.0, Basophils # (Auto) 0.0, Nucleated Red Blood Cells % (auto) 0.0, Anion Gap 6L, Glomerular Filtration Rate > 60.0, Calcium Level 9.6, Aspartate Amino Transf (AST/SGOT) 16, Alanine Aminotransferase (ALT/SGPT) 13, Alkaline Phosphatase 129H, Total Bilirubin 0.4, Direct Bilirubin 0.1, UI-Ubg-M-Type Natriuretic Peptide 3842H, Total Protein 7.3, Albumin 2.5L, Albumin/Globulin Ratio 0.52L CBC/BMP Laboratory Tests 01/27/19 13:13 Red Blood Count 3.96 L, Mean Corpuscular Volume 84.3, Mean Corpuscular Hemoglobin 24.5 L, Mean Corpuscular Hemoglobin Concent 29.0 L, Red Cell Distribution Width 18.6 H, Neutrophils (%) (Auto) 86.2 H, Lymphocytes (%) (Auto) 4.8 L, Monocytes (%) (Auto) 7.5 H, Eosinophils (%) (Auto) 0.4, Basophils (%) (Auto) 0.4, Neutrophils # (Auto) 8.6 H, Lymphocytes # (Auto) 0.5 L, Monocytes # (Auto) 0.8, Eosinophils # (Auto) 0.0, Basophils # (Auto) 0.0 Microbiology Microbiology 01/27/19 Blood Culture, Received Pending Home Medications Scheduled Allopurinol (Zyloprim) 300 Mg Tab, 300 MG PO DAILY Aspirin (Aspirin EC) 81 Mg Tab, 81 MG PO DAILY Clobetasol Propionate (Clobetasol Emollient 0.05% Crm) 60 Gm Cream..g., 1 DOSE TOP BID USES ON LEGS Digoxin (Digoxin) 125 Mcg Tablet, 125 MCG PO DAILY Ezetimibe (Zetia) 10 Mg Tab, 10 MG PO QHS Fentanyl (Fentanyl) 12 Mcg Patch.td72, 1 PATCH TOP Q3RD APPLIED TO RIGHT CHEST Folic Acid (Folic Acid) 1 Mg Tab, 1 MG PO DAILY Metoprolol Succinate (Metoprolol Succinate) 50 Mg Tab.er.24h, 50 MG PO BID Spironolactone (Spironolactone) 25 Mg Tab, 25 MG PO DAILY Vancomycin/0.9 % Sod Chloride (Vanco 750 mg/150 ml-0.9% NaCl) 750 Mg/150 Ml Plast..bag, 750 MG IV DAILY Scheduled PRN Acetaminophen with Codeine (Tylenol with Codeine #3 Tablet) 1 Each Tablet, 1 TAB PO BID PRN for PAIN Colchicine (Colchicine) 0.6 Mg Tab, 0.6 MG PO DAILY PRN for GOUT Lanolin Alcohol/Mo/W.pet/[place] (Eucerin Creme) 454 Gm Cream..g., 1 DOSE TOP BID PRN for DRY SKIN USES ON ARMS AND LEGS NEEDED Allergies Coded Allergies: No Known Allergies (Unverified , 05/11/18) A-FIB/CHADSVASC A-FIB History Current/History of A-Fib/PAF?: Yes Current PO Anticoag Therapy: No (reason unclear) Age/Risk Factor Scoring CHADSVASC: CHADSVASC Response (Comments) Value Age Risk Factor Age >/= 75 years old 2 Gender Risk Factor Female 1 Hx of CHF Yes 1 Hx of HTN Yes 1 Hx of Stroke/TIA/or VTE No 0 Hx of Diabetes Yes 1 Hx of Vascular Disease No 0 Total 6 Treatment Treatment ordered: Holding Other (need to talk w patient to determine why she is not on AC) Reason Anticoagulant not given: Other (need to talk with patient) Other reason anticoagulant not: need to talk with patient and complete chart review to determine why no AC ISIDRO MURILLO MD Jan 27, 2019 14:52
[2019-01-27] MEDS: HEPARIN SOD (PORCINE) 5000 UNITS/ML VIAL SC SCH ×3 (16:00→21:01)
[2019-01-27] MEDS ORDERED: VANCOMYCIN HCL 500 MG in D5W MINI-BAG PLUS 100 ML IV ONE (16:00)
[2019-01-27] MEDS ORDERED: VANCOMYCIN HCL 750 MG, VIAL MATE ADAPTER 1 EACH in D5W 250 ML IV ONE (17:00)
[2019-01-27 17:29] VITALS: BP 98/60
[2019-01-27] MEDS ORDERED: COLCHICINE 0.6 MG TAB PO PRN (19:45)
--- NOTE | 2019-01-27 19:57 | ECGEPIP ---
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
[2019-01-27] MEDS: ACETAMINOPH W/CODEINE #3 TAB UD PO PRN (20:49)
[2019-01-27] MEDS: METOPROLOL SUCC (TopROL XL) 50MG **XL** TAB PO SCH (20:51)
[2019-01-27] MEDS: CLOBETASOL PROPIONATE EMOLLIENT 0.05% CR 60 GM TOP SCH (20:51)
[2019-01-27] MEDS: EZETIMIBE 10 MG TAB (ZETIA) PO SCH (20:51)
[2019-01-27] MEDS ORDERED: NS 500 ML IV ONE (21:00)
[2019-01-27] MEDS ORDERED: ACETAMINOPHEN 500 MG TAB PO PRN (21:15)
[2019-01-27] MEDS ORDERED: GLUCOSE 4 GM CHEW TABLET PO PRN (21:15)
[2019-01-27 22:00] VITALS: BP 117/47
--- NOTE | 2019-01-27 22:25 | PHACANCOPD ---
PHARMACY VANCOMYCIN DOSING Pt Demographics Demographics Patient Age:88 , Weight:54.600 , Gender: female Adjusted Body Weight Events Past 24 Hours Events Past 24 Hours: NO: Dialysis, Diuretic Therapy, Change in CrCl, Fever, Elevation in WBC, Pending Diagnostics, Pending Procedures, Other Vancomycin Vancomycin indication: PNA Vancomycin Target Ranges: 15-20 mcg/ml Vancomycin Load Y/N: No Load Dose Date Time Vancomycin Load Dose: Date: Time: Vancomycin Dose Date: 01/27/19. Current Vancomycin Dose: [750MG IV Q24H] initiated at transferring facility Intermittent Dosing?: No Labs Labs Laboratory Tests Test 01/27/19 18:06 Vancomycin Level Trough 15.9 UG/ML (10.0-20.0) Laboratory Tests 01/27/19 13:13 Red Blood Count 3.96, Mean Corpuscular Volume 84.3, Mean Corpuscular Hemoglobin 24.5, Mean Corpuscular Hemoglobin Concent 29.0, Red Cell Distribution Width 18.6, Neutrophils (%) (Auto) 86.2, Lymphocytes (%) (Auto) 4.8, Monocytes (%) (Auto) 7.5, Eosinophils (%) (Auto) 0.4, Basophils (%) (Auto) 0.4, Neutrophils # (Auto) 8.6, Lymphocytes # (Auto) 0.5, Monocytes # (Auto) 0.8, Eosinophils # (Auto) 0.0, Basophils # (Auto) 0.0 Micro Microbiology 01/27/19 Blood Culture, Received Pending 01/27/19 Blood Culture, Received Pending Creatinine Clearance Date:01/27/19. Creatinine Clearance: [>40ml/min]. Assessment and Plan Maintaining Current Dose?: Yes Reason for dose change: No Dose Change Pharmacist Note Pharmacist Note Date: 01/27/19. PharmD note: THE PATIENT WAS TRANSFERRED HERE ALREADY ON VANCO 750MG IV Q24H. THE PATIENT WAS GIVEN 500MG IV x1 DOSE ON ADMISSION AFTER A VANCO RANDOM LEVEL WAS FOUND TO BE 15.9 mcg/ml. THE PHARMACY CONSULT OCCURRED AFTER THAT. IN THE MORNING WE WILL CONTINUE WITH VANCO 750MG IV Q24H STARTING AT 08:00 [facility] Jan 27, 2019 22:25
[2019-01-28 02:00] VITALS: BP 119/63
[2019-01-28 05:55] LABS: HEMOGLOBIN 8.7 g/dl (12.0-15.5); MEAN CORPUSCULAR HEMOGLOBIN 24.1 pg (27.0-33.0); MEAN CORPUSCULAR VOLUME 83.1 fl (80.0-96.0); PLATELET COUNT, AUTOMATED 286 10^3/uL (150-450); RED BLOOD COUNT 3.61 10^6/uL (4.00-5.40); WHITE BLOOD COUNT 7.2 10^3/uL (4.0-10.0)
[2019-01-28] MEDS: HEPARIN SOD (PORCINE) 5000 UNITS/ML VIAL SC SCH ×3 (06:00→21:08)
[2019-01-28 06:16] LABS: HEMOGLOBIN A1c 8.1 %
[2019-01-28 06:24] LABS: BLOOD UREA NITROGEN 24 MG/DL (7-18); CALCIUM LEVEL 8.9 MG/DL (8.8-10.2); CARBON DIOXIDE LEVEL 28 MEQ/L (21-32); CHLORIDE LEVEL 108 MEQ/L (98-107); CREATININE FOR GFR 0.73 MG/DL (0.55-1.30); GLOMERULAR FILTRATION RATE > 60.0 (>32); GLUCOSE, FASTING 168 MG/DL (70-100); POTASSIUM SERUM 4.1 MEQ/L (3.5-5.1); SODIUM LEVEL 141 MEQ/L (136-145)
[2019-01-28] MEDS: VANCOMYCIN HCL 750 MG, VIAL MATE ADAPTER 1 EACH in D5W 250 ML IV SCH (07:55)
[2019-01-28] MEDS: HumaLOG INSULIN (NovoLOG) PER UNIT SC SCH ×3 (07:55→17:05)
[2019-01-28] MEDS: ALLOPURINOL 300 MG TAB PO SCH (07:56)
[2019-01-28] MEDS: DIGOXIN 0.125 MG TAB PO SCH (07:56)
[2019-01-28] MEDS: METOPROLOL SUCC (TopROL XL) 50MG **XL** TAB PO SCH ×2 (07:57→21:12)
[2019-01-28] MEDS: ASPIRIN 81 MG ENTERIC TAB PO SCH (07:57)
[2019-01-28] MEDS: SPIRONOLACTONE 25 MG TAB PO SCH (07:57)
[2019-01-28] MEDS: LIDOCAINE 5% (LIDODERM) PATCH TD SCH (07:58)
[2019-01-28] MEDS: FOLIC ACID 1 MG TAB PO SCH (07:59)
[2019-01-28] MEDS: CLOBETASOL PROPIONATE EMOLLIENT 0.05% CR 60 GM TOP SCH ×2 (07:59→21:09)
[2019-01-28] MEDS ORDERED: ISOVUE-370 76% 100ML VIAL (Q9967) As Ordered ONE (08:05)
--- NOTE | 2019-01-28 09:55 | REP ---
Clinical: Worsening shortness of breath/pneumonia. Technique: Axial contrast enhanced images from the thoracic inlet to the upper abdomen with coronal and sagittal re-formations. Comparison: 01/05/2019. Findings: Moderate areas of consolidation with air bronchograms involving the right lower lobe, left lower lobe and lingula along with small pleural effusions are similar to prior examination. New smaller areas of atelectasis/early consolidation involving the right middle lobe are now identified. Mild reactive hilar and mediastinal adenopathy is suggested. No pneumothorax. Underlying cardiomegaly and chronic pulmonary vascular congestion suggested. The skeletal structures again demonstrate exaggerated kyphosis and diffuse osteopenia and degenerative changes. Destructive changes involving the endplates at the T7-8 level appears to have progressed from prior examination and is most compatible with diskitis. Stable vertebra plana at T10 again noted. Impression: 1. Areas of consolidation involving the right lower lobe, lingular, and left lower lobe with small pleural effusions as well as small new areas of ill-defined atelectasis/consolidation now involving the right middle lobe. 2. Acute diskitis involving the T7-T8 level appears progressive when compared to prior examination. 3. Cardiomegaly and findings to suggest mild/moderate chronic pulmonary vascular congestion. Electronically Signed by Luis F Cannon MD 01/28/2019 09:45 A
[2019-01-28 10:00] VITALS: BP 115/63
[2019-01-28] MEDS: LevoFLOXacin IV 750 MG in APPROPRIATE DILUENT 1 EA IV SCH (10:01)
[2019-01-28] MEDS: ACETAMINOPH W/CODEINE #3 TAB UD PO PRN ×2 (11:14→23:07)
[2019-01-28 14:00] VITALS: BP 124/61
--- NOTE | 2019-01-28 15:42 | IPNPDOC ---
Subjective Date Seen The patient was seen on 01/28/19. Subjective Chief Complaint/HPI 88f withchf, afib, dm, ckd, compression fractures, multiple hospitalizations over the past few months including mrsa bacteremia in october, mrsa pna and diskitis in december, both of which presented as pain radiating from chest to back, now presents with the same pain. Pt has been receiving vancomycin via picc at home to complete a 6 week course on 02/10. She continues to complain of pain, pain is worsened by pushing on area. She reports she does not tolerate oxycodone and wants to continue tylenol with codeine for pain. She reports she has been on it for a long time but recently had the frequency reduced as her pmd was concerned about how much she was taking. per nursing daughter would like to review goals of care tomorrow. Full ROS was performed and negative except as documented above. Objective Physical Examination General Exam: Positive: Alert, Cooperative, Moderate Distress Eye Exam: Positive: PERRLA, Conjunctiva & lids normal, EOMI; Negative: Sclera icteric ENT Exam: Positive: Atraumatic, Mucous membr. moist/pink, Pharynx Normal Neck Exam: Positive: Supple; Negative: JVD, thyromegaly Chest Exam: Positive: Clear to auscultation, Diminished Heart Exam: Positive: Rate Normal, Regular Rhythm, Normal S1, Normal S2; Negative: Murmurs, Rubs Abdomen Exam: Positive: Normal bowel sounds, Soft; Negative: Tenderness, Hepatospenomegaly Skin Exam: Positive: Nl turgor and temperature; Negative: Rash, Breakdown Neuro Exam: Positive: Normal Gait, Normal Speech, Cranial Nerves 3-12 NL, Reflexes 2+ Psych Exam: Positive: Mental status NL, Mood NL, Oriented x 3 Assessment /Plan Assessment 88f with recurrent mrsa infections PNA has been on 4 weeks abx imaging has stayed the same or perhaps a little worse imaging abnormalities can linger longer than the actual infection pt reports bronch at outside hospital in the past of note imaging in october did not have this consolidation will consider pulm eval continued on vanco levaquin added on admission Diskitis would have suspected it would have improved on iv vancomycin levaquin has been added on admission would consider switching to ceftriaxone however will wait for ID eval besides imaging worsening, inflammatory markers have also been rising outpatient Dm monitor finger sticks continue sliding scale coverage diabetic diet afib continue rate control and ac Plan/VTE VTE Prophylaxis Ordered?: Yes VS, I&O, 24H, Fishbone Vital Signs/I&O Vital Signs Date Time Temp Pulse Resp B/P (MAP) Pulse Ox O2 Delivery O2 Flow Rate FiO2 01/28/19 11:44 20 01/28/19 10:00 97.3 60 115/63 (80) 98 01/27/19 16:58 Room Air I&O- Last 24 Hours up to 6 AM 01/28/19 06:00 Intake Total 1270 ml Output Total 0 ml Balance 1270 ml Laboratory Data 24H LABS Laboratory Tests 2 01/27/19 18:06: Vancomycin Level Trough 15.9 01/28/19 05:31: Nucleated Red Blood Cells % (auto) 0.0, Anion Gap 5L, Glomerular Filtration Rate > 60.0, Estimated Mean Plasma Glucose 186H, Hemoglobin A1c 8.1, Blood Urea Nitrogen 24H, Creatinine 0.73, Sodium Level 141, Potassium Level 4.1, Chloride Level 108H, Carbon Dioxide Level 28, Calcium Level 8.9, Procalcitonin 0.24 01/28/19 11:53: Bedside Glucose (Misc Panel) 138H CBC/BMP Laboratory Tests 01/28/19 05:31 Red Blood Count 3.61 L, Mean Corpuscular Volume 83.1, Mean Corpuscular Hemoglobin 24.1 L, Mean Corpuscular Hemoglobin Concent 29.0 L, Red Cell Distribution Width 18.6 H, Calcium Level 8.9 Microbiology Microbiology 01/27/19 Blood Culture, Received Pending 01/27/19 Blood Culture - Preliminary, Resulted SANTO KAUFMAN MD Jan 28, 2019 15:42
[2019-01-28 18:00] VITALS: BP 118/60
[2019-01-28] MEDS: SODIUM CHLORIDE 0.9% INJ 10 ML SYR IV SCH (18:01)
[2019-01-28 20:00] VITALS: BP 148/72
[2019-01-28] MEDS ORDERED: KETOROLAC 30 MG/ML VIAL (J1885) IV ONE (21:00)
[2019-01-28] MEDS: EZETIMIBE 10 MG TAB (ZETIA) PO SCH (21:08)
[2019-01-28] MEDS: NS IV SCH (22:41)
[2019-01-28] MEDS: RIFAMPIN IV SCH (22:41)
[2019-01-29] VITALS: BP 128/65
[2019-01-29 05:28] LABS: BASO % 0.3 % (0.0-1.0); EOS # 0.1 10^3/uL (0.0-0.50); EOS % 0.6 % (0.0-3.0); HEMOGLOBIN 9.4 g/dl (12.0-15.5); LYMPH # 0.5 10^3/uL (1.5-4.5); LYMPH % 5.3 % (24.0-44.0); MEAN CORPUSCULAR HEMOGLOBIN 23.9 pg (27.0-33.0); MEAN CORPUSCULAR HGB CONC 29.4 g/dl (32.0-36.5); MEAN CORPUSCULAR VOLUME 81.4 fl (80.0-96.0); MONO # 0.8 10^3/uL (0.0-0.8); MONO % 8.3 % (0.0-5.0); NEUTROPHILS # 8.2 10^3/uL (1.8-7.7); NEUTROPHILS % 84.5 % (36.0-66.0); PLATELET COUNT, AUTOMATED 323 10^3/uL (150-450); RED BLOOD COUNT 3.93 10^6/uL (4.00-5.40); WHITE BLOOD COUNT 9.7 10^3/uL (4.0-10.0)
[2019-01-29 05:46] LABS: BLOOD UREA NITROGEN 19 MG/DL (7-18); CALCIUM LEVEL 9.4 MG/DL (8.8-10.2); CARBON DIOXIDE LEVEL 30 MEQ/L (21-32); CHLORIDE LEVEL 105 MEQ/L (98-107); CREATININE FOR GFR 0.69 MG/DL (0.55-1.30); GLOMERULAR FILTRATION RATE > 60.0 (>32); GLUCOSE, FASTING 141 MG/DL (70-100); POTASSIUM SERUM 4.1 MEQ/L (3.5-5.1); SODIUM LEVEL 140 MEQ/L (136-145)
[2019-01-29 06:00] VITALS: BP 110/58
[2019-01-29] MEDS: SODIUM CHLORIDE 0.9% INJ 10 ML SYR IV SCH ×2 (06:07→17:36)
[2019-01-29] MEDS: HEPARIN SOD (PORCINE) 5000 UNITS/ML VIAL SC SCH ×3 (06:07→20:47)
[2019-01-29] MEDS: HumaLOG INSULIN (NovoLOG) PER UNIT SC SCH ×3 (07:58→17:37)
[2019-01-29] MEDS: VANCOMYCIN HCL 750 MG, VIAL MATE ADAPTER 1 EACH in D5W 250 ML IV SCH (07:58)
[2019-01-29] MEDS: ASPIRIN 81 MG ENTERIC TAB PO SCH (09:37)
[2019-01-29] MEDS: SPIRONOLACTONE 25 MG TAB PO SCH (09:37)
[2019-01-29] MEDS: DIGOXIN 0.125 MG TAB PO SCH (09:38)
[2019-01-29] MEDS: ALLOPURINOL 300 MG TAB PO SCH (09:40)
[2019-01-29] MEDS: FOLIC ACID 1 MG TAB PO SCH (09:40)
[2019-01-29] MEDS: METOPROLOL SUCC (TopROL XL) 50MG **XL** TAB PO SCH ×2 (09:40→20:45)
[2019-01-29] MEDS: LIDOCAINE 5% (LIDODERM) PATCH TD SCH (09:40)
[2019-01-29] MEDS: fentaNYL 12 MCG/HR PATCH TOP SCH (09:41)
[2019-01-29] MEDS: CLOBETASOL PROPIONATE EMOLLIENT 0.05% CR 60 GM TOP SCH ×2 (09:41→20:47)
[2019-01-29 10:00] VITALS: BP 128/77
[2019-01-29 10:38] LABS: ERYTHROCYTE SEDIMENTATION RATE 65 mm/hr (0-42)
[2019-01-29] MEDS: FENTANYL REMOVAL DOCUMENTATION MISC XX SCH (13:46)
[2019-01-29 14:00] VITALS: BP 145/85
[2019-01-29] MEDS: ACETAMINOPH W/CODEINE #3 TAB UD PO PRN ×2 (14:07→20:46)
--- NOTE | 2019-01-29 18:37 | IPNPDOC ---
Subjective Date Seen The patient was seen on 01/29/19. Subjective Chief Complaint/HPI 88f with chf, afib, dm, ckd, compression fractures, multiple hospitalizations over the past few months including mrsa bacteremia in october, mrsa pna and diskitis in december, both of which presented as pain radiating from chest to back, now presents with the same pain. Pt has been receiving vancomycin via picc at home to complete a 6 week course on 02/10. complaining we are not giving her enough pain meds and toradol upset her stomach. Full ROS was performed and negative except as documented above. Objective Physical Examination General Exam: Positive: Alert, Cooperative, Moderate Distress Eye Exam: Positive: PERRLA, Conjunctiva & lids normal, EOMI; Negative: Sclera icteric ENT Exam: Positive: Atraumatic, Mucous membr. moist/pink, Pharynx Normal Neck Exam: Positive: Supple; Negative: JVD, thyromegaly Chest Exam: Positive: Clear to auscultation, Diminished Heart Exam: Positive: Rate Normal, Regular Rhythm, Normal S1, Normal S2; Negative: Murmurs, Rubs Abdomen Exam: Positive: Normal bowel sounds, Soft; Negative: Tenderness, Hepatospenomegaly Skin Exam: Positive: Nl turgor and temperature; Negative: Rash, Breakdown Neuro Exam: Positive: Normal Gait, Normal Speech, Cranial Nerves 3-12 NL, Reflexes 2+ Psych Exam: Positive: Mental status NL, Mood NL, Oriented x 3 Assessment /Plan Assessment 88f with recurrent mrsa infections PNA has been on 4 weeks abx unclear if imaging represents a current infection continued on vanco levaquin added on admission Diskitis seems to have progressed on vanco continue vanco and rifampin blood cx prelim positive for gpcs in clusters likely will be mrsa again will get mri of spine to evaluate for other foci and possible abscess Dm monitor finger sticks continue sliding scale coverage diabetic diet GOC at daughters request discussed goals of care with pt including the possibility of hospice and 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 pt does want her pain better controlled she also mentions that her pmd was concerned that she was taking too much tylenol #3, but she would rather be comfortable even if it were threatening her life however she was adamant that she wants to continue treatment of these infections and would be willing to undergo invasive procedures if necessary I have increased her tylenol #3 to her previous regimen that she was happy with 600/60 q6h prn Plan/VTE VTE Prophylaxis Ordered?: Yes VS, I&O, 24H, [facility] Vital Signs/I&O Vital Signs Date Time Temp Pulse Resp B/P (MAP) Pulse Ox O2 Delivery O2 Flow Rate FiO2 01/29/19 14:37 17 01/29/19 14:00 97.0 95 145/85 (105) 97 01/27/19 16:58 Room Air I&O- Last 24 Hours up to 6 AM 01/29/19 06:00 Intake Total 923 ml Output Total 0 ml Balance 923 ml Laboratory Data 24H LABS Laboratory Tests 2 01/29/19 05:03: Immature Granulocyte % (Auto) 1.0, White Blood Count 9.7, Red Blood Count 3.93L, Hemoglobin 9.4L, Hematocrit 32.0L, Mean Corpuscular Volume 81.4, Mean Corpuscular Hemoglobin 23.9L, Mean Corpuscular Hemoglobin Concent 29.4L, Red Cell Distribution Width 18.6H, Platelet Count 323, Neutrophils (%) (Auto) 84.5H, Lymphocytes (%) (Auto) 5.3L, Monocytes (%) (Auto) 8.3H, Eosinophils (%) (Auto) 0.6, Basophils (%) (Auto) 0.3, Neutrophils # (Auto) 8.2H, Lymphocytes # (Auto) 0.5L, Monocytes # (Auto) 0.8, Eosinophils # (Auto) 0.1, Basophils # (Auto) 0.0, Nucleated Red Blood Cells % (auto) 0.0, Erythrocyte Sedimentation Rate 65H, Anion Gap 5L, Glomerular Filtration Rate > 60.0, Blood Urea Nitrogen 19H, Creatinine 0.69, Sodium Level 140, Potassium Level 4.1, Chloride Level 105, Carbon Dioxide Level 30, Calcium Level 9.4 01/29/19 11:58: Bedside Glucose (Misc Panel) 125H 01/29/19 17:27: Bedside Glucose (Misc Panel) 123H CBC/BMP Laboratory Tests 01/29/19 05:03 Red Blood Count 3.93 L, Mean Corpuscular Volume 81.4, Mean Corpuscular Hemoglobin 23.9 L, Mean Corpuscular Hemoglobin Concent 29.4 L, Red Cell Distribution Width 18.6 H, Neutrophils (%) (Auto) 84.5 H, Lymphocytes (%) (Auto) 5.3 L, Monocytes (%) (Auto) 8.3 H, Eosinophils (%) (Auto) 0.6, Basophils (%) (Auto) 0.3, Neutrophils # (Auto) 8.2 H, Lymphocytes # (Auto) 0.5 L, Monocytes # (Auto) 0.8, Eosinophils # (Auto) 0.1, Basophils # (Auto) 0.0, Calcium Level 9.4 Microbiology Microbiology 01/27/19 Blood Culture - Preliminary, Resulted No Growth after 48 hours. All Specime... 01/27/19 Blood Culture - Preliminary, Resulted SANTO KAUFMAN MD Jan 29, 2019 18:37
[2019-01-29] MEDS: EZETIMIBE 10 MG TAB (ZETIA) PO SCH (20:46)
[2019-01-29 22:00] VITALS: BP 120/68
[2019-01-29] MEDS: RIFAMPIN IV SCH (22:39)
[2019-01-29] MEDS: NS IV SCH (22:39)
[2019-01-30 02:00] VITALS: BP 119/69
[2019-01-30] MEDS: ACETAMINOPH W/CODEINE #3 TAB UD PO PRN ×4 (03:53→22:49)
[2019-01-30 06:00] VITALS: BP 131/72
[2019-01-30] MEDS: SODIUM CHLORIDE 0.9% INJ 10 ML SYR IV SCH ×2 (06:12→18:09)
[2019-01-30] MEDS: HEPARIN SOD (PORCINE) 5000 UNITS/ML VIAL SC SCH ×3 (06:13→22:20)
[2019-01-30] MEDS: HumaLOG INSULIN (NovoLOG) PER UNIT SC SCH ×3 (07:41→17:30)
[2019-01-30] MEDS: VANCOMYCIN HCL 750 MG, VIAL MATE ADAPTER 1 EACH in D5W 250 ML IV SCH (07:41)
[2019-01-30] MEDS: ASPIRIN 81 MG ENTERIC TAB PO SCH (07:50)
[2019-01-30] MEDS: FOLIC ACID 1 MG TAB PO SCH (07:50)
[2019-01-30] MEDS: LIDOCAINE 5% (LIDODERM) PATCH TD SCH (07:50)
[2019-01-30] MEDS: ALLOPURINOL 300 MG TAB PO SCH (07:51)
[2019-01-30] MEDS: DIGOXIN 0.125 MG TAB PO SCH (07:51)
[2019-01-30] MEDS: SPIRONOLACTONE 25 MG TAB PO SCH (07:51)
[2019-01-30] MEDS: METOPROLOL SUCC (TopROL XL) 50MG **XL** TAB PO SCH ×2 (07:52→21:04)
[2019-01-30] MEDS: LevoFLOXacin IV 750 MG in APPROPRIATE DILUENT 1 EA IV SCH (09:12)
[2019-01-30] MEDS: CLOBETASOL PROPIONATE EMOLLIENT 0.05% CR 60 GM TOP SCH ×2 (09:12→21:07)
--- NOTE | 2019-01-30 13:52 | PHACANCOPD ---
PHARMACY VANCOMYCIN DOSING Pt Demographics Demographics Patient Age:88 , Weight:54.200 , Gender: female Adjusted Body Weight Events Past 24 Hours Events Past 24 Hours: NO: Dialysis, Diuretic Therapy, Change in CrCl, Fever, Elevation in WBC, Pending Diagnostics, Pending Procedures, Other Vancomycin Vancomycin indication: PNA Vancomycin Target Ranges: 15-20 mcg/ml Vancomycin Load Y/N: No Load Dose Date Time Vancomycin Load Dose: Date: Time: Vancomycin Dose Date: 01/27/19. Current Vancomycin Dose: [750MG IV Q24H] initiated at transferring facility Intermittent Dosing?: No Labs Labs Vital Signs Label Value Date Time Patient Temperature 98.8 degrees F 01/30/19 1034 Blood Pressure Assessment 131/72 01/30/19 1034 Item Value Date Time White Blood Count 7.2 10^3/uL 01/28/19 0531 White Blood Count 9.7 10^3/uL 01/29/19 0503 Erythrocyte Sedimentation Rate 65 mm/hr H 01/29/19 0503 Creatinine 0.69 MG/DL 01/29/19 0503 Procalcitonin 0.24 NG/ML 01/28/19 0531 Procalcitonin 0.20 NG/ML 01/29/19 0503 Micro Microbiology 01/30/19 Blood Culture, Received Pending 01/27/19 Blood Culture - Preliminary, Resulted No Growth after 48 hours. All Specime... 01/27/19 Blood Culture - Final, Complete Staphylococcus Epidermidis Creatinine Clearance Date:01/27/19. Creatinine Clearance: [>40ml/min]. Assessment and Plan Maintaining Current Dose?: Yes Reason for dose change: No Dose Change Pharmacist Note Pharmacist Note 01/30: Patient's trough today resulted at 18.7. 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 She will be continued on Vancomycin 750mg IV q24h for now and we will obtain another trough tomorrow morning to ensure patient isn't accumulating on this dose. Date: 01/27/19. PharmD note: THE PATIENT WAS TRANSFERRED HERE ALREADY ON VANCO 750MG IV Q24H. THE PATIENT WAS GIVEN 500MG IV x1 DOSE ON ADMISSION AFTER A VANCO RANDOM LEVEL WAS FOUND TO BE 15.9 mcg/ml. THE PHARMACY CONSULT OCCURRED AFTER THAT. IN THE MORNING WE WILL CONTINUE WITH VANCO 750MG IV Q24H STARTING AT 08:00 [facility] Jan 30, 2019 13:52
[2019-01-30 14:00] VITALS: BP 124/69
--- NOTE | 2019-01-30 17:47 | IPNPDOC ---
Subjective Date Seen The patient was seen on 01/30/19. Subjective Chief Complaint/HPI 88f with chf, afib, dm, ckd, compression fractures, multiple hospitalizations over the past few months including mrsa bacteremia in october, mrsa pna and diskitis in december, both of which presented as pain radiating from chest to back, now presents with the same pain. Pt has been receiving vancomycin via picc at home to complete a 6 week course on 02/10. refused mri, pain better controlled Full ROS was performed and negative except as documented above. Objective Physical Examination General Exam: Positive: Alert, Cooperative, Moderate Distress Eye Exam: Positive: PERRLA, Conjunctiva & lids normal, EOMI; Negative: Sclera icteric ENT Exam: Positive: Atraumatic, Mucous membr. moist/pink, Pharynx Normal Neck Exam: Positive: Supple; Negative: JVD, thyromegaly Chest Exam: Positive: Clear to auscultation, Diminished Heart Exam: Positive: Rate Normal, Regular Rhythm, Normal S1, Normal S2; Negative: Murmurs, Rubs Abdomen Exam: Positive: Normal bowel sounds, Soft; Negative: Tenderness, Hepatospenomegaly Skin Exam: Positive: Nl turgor and temperature; Negative: Rash, Breakdown Neuro Exam: Positive: Normal Gait, Normal Speech, Cranial Nerves 3-12 NL, Reflexes 2+ Psych Exam: Positive: Mental status NL, Mood NL, Oriented x 3 Assessment /Plan Assessment 88f with recurrent mrsa infections PNA has been on 4 weeks abx unclear if imaging represents a current infection continued on vanco levaquin added on admission Diskitis seems to have progressed on vanco continue vanco and rifampin blood cx is staph epi pt refused mri after hearing it would take [address] A&P to evaluate l-spine and abdomen for abscess Dm monitor finger sticks continue sliding scale coverage diabetic diet Plan/VTE VTE Prophylaxis Ordered?: Yes VS, I&O, 24H, Fishbone Vital Signs/I&O Vital Signs Date Time Temp Pulse Resp B/P (MAP) Pulse Ox O2 Delivery O2 Flow Rate FiO2 01/30/19 17:00 18 01/30/19 14:00 97.6 72 124/69 (87) 98 01/27/19 16:58 Room Air I&O- Last 24 Hours up to 6 AM 01/30/19 06:00 Intake Total 1230 ml Output Total 0 ml Balance 1230 ml Laboratory Data 24H LABS Laboratory Tests 2 01/29/19 20:26: Bedside Glucose (Misc Panel) 103 01/30/19 06:45: Bedside Glucose (Misc Panel) 114H 01/30/19 07:09: Vancomycin Level Trough 18.7 01/30/19 12:36: Bedside Glucose (Misc Panel) 127H Microbiology Microbiology 01/30/19 Blood Culture, Received Pending 01/27/19 Blood Culture - Preliminary, Resulted No Growth after 72 hours. All specime... 01/27/19 Blood Culture - Final, Complete Staphylococcus Epidermidis SANTO KAUFMAN MD Jan 30, 2019 17:47
[2019-01-30] MEDS: GASTROGRAFIN SOLUTION 30ML PO SCH ×2 (18:15→18:45)
[2019-01-30] MEDS: EZETIMIBE 10 MG TAB (ZETIA) PO SCH (21:03)
[2019-01-30] MEDS: NS IV SCH (21:04)
[2019-01-30] MEDS: RIFAMPIN IV SCH (21:04)
[2019-01-30 22:00] VITALS: BP 114/59
[2019-01-31 02:00] VITALS: BP 118/71
[2019-01-31 06:00] VITALS: BP 116/69
[2019-01-31] MEDS: HEPARIN SOD (PORCINE) 5000 UNITS/ML VIAL SC SCH ×3 (06:07→21:52)
[2019-01-31] MEDS: SODIUM CHLORIDE 0.9% INJ 10 ML SYR IV SCH ×2 (06:08→18:02)
[2019-01-31] MEDS: ACETAMINOPH W/CODEINE #3 TAB UD PO PRN ×3 (07:04→21:51)
[2019-01-31] MEDS: HumaLOG INSULIN (NovoLOG) PER UNIT SC SCH ×3 (07:30→18:02)
[2019-01-31 07:44] LABS: BASO # 0.1 10^3/uL (0.0-0.2); BASO % 0.5 % (0.0-1.0); EOS # 0.1 10^3/uL (0.0-0.50); EOS % 0.7 % (0.0-3.0); HEMATOCRIT 34.7 % (36.0-47.0); LYMPH # 0.6 10^3/uL (1.5-4.5); LYMPH % 5.3 % (24.0-44.0); MEAN CORPUSCULAR HEMOGLOBIN 24.5 pg (27.0-33.0); MEAN CORPUSCULAR HGB CONC 28.8 g/dl (32.0-36.5); MONO # 0.7 10^3/uL (0.0-0.8); MONO % 5.5 % (0.0-5.0); NEUTROPHILS # 10.5 10^3/uL (1.8-7.7); NEUTROPHILS % 86.8 % (36.0-66.0); PLATELET COUNT, AUTOMATED 365 10^3/uL (150-450); RED BLOOD COUNT 4.08 10^6/uL (4.00-5.40); WHITE BLOOD COUNT 12.1 10^3/uL (4.0-10.0)
[2019-01-31] MEDS: GASTROGRAFIN SOLUTION 30ML (Q9963) PO SCH ×3 (08:00→09:47)
[2019-01-31 08:06] LABS: BLOOD UREA NITROGEN 14 MG/DL (7-18); CALCIUM LEVEL 9.1 MG/DL (8.8-10.2); CARBON DIOXIDE LEVEL 26 MEQ/L (21-32); CHLORIDE LEVEL 105 MEQ/L (98-107); CREATININE FOR GFR 0.69 MG/DL (0.55-1.30); GLOMERULAR FILTRATION RATE > 60.0 (>32); GLUCOSE, FASTING 91 MG/DL (70-100); POTASSIUM SERUM 3.8 MEQ/L (3.5-5.1); SODIUM LEVEL 137 MEQ/L (136-145); VANCOMYCIN LEVEL TROUGH 18.5 UG/ML (10.0-20.0)
[2019-01-31 08:11] LABS: ERYTHROCYTE SEDIMENTATION RATE 71 mm/hr (0-42)
[2019-01-31] MEDS: VANCOMYCIN HCL 750 MG, VIAL MATE ADAPTER 1 EACH in D5W 250 ML IV SCH (08:57)
[2019-01-31] MEDS: DIGOXIN 0.125 MG TAB PO SCH (09:00)
[2019-01-31] MEDS: METOPROLOL SUCC (TopROL XL) 50MG **XL** TAB PO SCH ×2 (09:00→21:52)
[2019-01-31] MEDS: ALLOPURINOL 300 MG TAB PO SCH (09:01)
[2019-01-31] MEDS: FOLIC ACID 1 MG TAB PO SCH (09:01)
[2019-01-31] MEDS: SPIRONOLACTONE 25 MG TAB PO SCH (09:01)
[2019-01-31] MEDS: LIDOCAINE 5% (LIDODERM) PATCH TD SCH (09:01)
[2019-01-31] MEDS: ASPIRIN 81 MG ENTERIC TAB PO SCH (09:01)
[2019-01-31] MEDS: CLOBETASOL PROPIONATE EMOLLIENT 0.05% CR 60 GM TOP SCH ×2 (09:02→21:52)
[2019-01-31] MEDS ORDERED: ISOVUE-370 76% 100ML VIAL (Q9967) As Ordered ONE (10:47)
--- NOTE | 2019-01-31 11:42 | REP ---
Clinical: Abdominal pain. Evaluate for abscess. Technique: Axial contrast enhanced images from the lung bases to the pubic symphysis using 100 ml Isovue 370 intravenous contrast material with coronal and sagittal re-formations. Comparison: 12/03/2018. Findings: Lung bases demonstrate stable cardiomegaly along with moderate areas of atelectasis/consolidation with air bronchograms involving the right lower lobe, right middle lobe, left lower lobe and lingula as well as small right pleural effusion and trace left pleural effusion. Liver, spleen, pancreas, gallbladder, and bilateral adrenal glands are relatively normal. Kidneys demonstrate age-related atrophic changes without hydronephrosis or perinephric stranding. The enteric system is without obstruction or acute inflammatory process. Pelvis demonstrates normal bladder and evidence of prior hysterectomy. No pelvic fluid or ascites. No free air. No significant intraperitoneal or retroperitoneal adenopathy. Atherosclerotic changes to the aorta and vasculature without aneurysm or dissection. Musculoskeletal structures demonstrate degenerative changes. Impression: 1. Continued multifocal atelectasis/consolidations with small pleural effusions (right greater than left). Stable cardiomegaly. 2. No obvious acute abdominopelvic pathology. Specifically, no ascites or drainable collection/abscess and no evidence for adenopathy or focal inflammatory change. 3. Chronic nonacute findings as above. Electronically Signed by Luis F Cannon MD 01/31/2019 11:34 A
[2019-01-31 14:00] VITALS: BP 138/56
--- NOTE | 2019-01-31 14:55 | PHACANCOPD ---
PHARMACY VANCOMYCIN DOSING Pt Demographics Demographics Patient Age:88 , Weight:54.200 , Gender: female Adjusted Body Weight Events Past 24 Hours Events Past 24 Hours: NO: Dialysis, Diuretic Therapy, Change in CrCl, Fever, Elevation in WBC, Pending Diagnostics, Pending Procedures, Other Vancomycin Vancomycin indication: PNA Vancomycin Target Ranges: 15-20 mcg/ml Vancomycin Load Y/N: No Load Dose Date Time Vancomycin Load Dose: Date: Time: Vancomycin Dose Date: 01/27/19. Current Vancomycin Dose: [750MG IV Q24H] initiated at transferring facility Intermittent Dosing?: No Labs Labs Item Value Date Time White Blood Count 9.7 10^3/uL 01/29/19 0503 White Blood Count 12.1 10^3/uL H 01/31/19 0720 Erythrocyte Sedimentation Rate 65 mm/hr H 01/29/19 0503 Erythrocyte Sedimentation Rate 71 mm/hr H 01/31/19 0720 C-Reactive Protein, Quantitative 12.60 MG/DL H 01/31/19 0720 Procalcitonin 0.20 NG/ML 01/29/19 0503 Creatinine 0.69 MG/DL 01/31/19 0720 Vancomycin Level Trough 18.7 UG/ML 01/30/19 0709 Vancomycin Level Trough 18.5 UG/ML 01/31/19 0720 Vital Signs Label Value Date Time Patient Temperature 98.2 degrees F 01/31/19 0600 Temperature Source Oral 01/31/19 0600 Micro Microbiology 01/30/19 Blood Culture - Preliminary, Resulted No growth after 24 hours . All specim... 01/27/19 Blood Culture - Preliminary, Resulted No Growth after 72 hours. All specime... 01/27/19 Blood Culture - Final, Complete Staphylococcus Epidermidis Creatinine Clearance Date:01/27/19. Creatinine Clearance: [>40ml/min]. Assessment and Plan Maintaining Current Dose?: Yes Reason for dose change: No Dose Change Pharmacist Note Pharmacist Note 01/31: Patient's trough resulted today at 18.5. She will be continued on her home dose of Vancomycin 750mg IV q24h. We will continue to monitor and make changes as necessary. 01/30: Patient's trough today resulted at 18.7. 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 She will be continued on Vancomycin 750mg IV q24h for now and we will obtain another trough tomorrow morning to ensure patient isn't accumulating on this dose. Date: 01/27/19. PharmD note: THE PATIENT WAS TRANSFERRED HERE ALREADY ON VANCO 750MG IV Q24H. THE PATIENT WAS GIVEN 500MG IV x1 DOSE ON ADMISSION AFTER A VANCO RANDOM LEVEL WAS FOUND TO BE 15.9 mcg/ml. THE PHARMACY CONSULT OCCURRED AFTER THAT. IN THE MORNING WE WILL CONTINUE WITH VANCO 750MG IV Q24H STARTING AT 08:00 [facility] Jan 31, 2019 14:55
--- NOTE | 2019-01-31 19:00 | IPNPDOC ---
Subjective Date Seen The patient was seen on 01/31/19. Subjective Chief Complaint/HPI 88f with chf, afib, dm, ckd, compression fractures, multiple hospitalizations over the past few months including mrsa bacteremia in october, mrsa pna and diskitis in december, both of which presented as pain radiating from chest to back, now presents with the same pain. Pt has been receiving vancomycin via picc at home to complete a 6 week course on 02/10. after some delay pt had ct abd/pelv, unremarkable. no complaints Full ROS was performed and negative except as documented above. Objective Physical Examination General Exam: Positive: Alert, Cooperative, Moderate Distress Eye Exam: Positive: PERRLA, Conjunctiva & lids normal, EOMI; Negative: Sclera icteric ENT Exam: Positive: Atraumatic, Mucous membr. moist/pink, Pharynx Normal Neck Exam: Positive: Supple; Negative: JVD, thyromegaly Chest Exam: Positive: Clear to auscultation, Diminished Heart Exam: Positive: Rate Normal, Regular Rhythm, Normal S1, Normal S2; Negative: Murmurs, Rubs Abdomen Exam: Positive: Normal bowel sounds, Soft; Negative: Tenderness, Hepatospenomegaly Skin Exam: Positive: Nl turgor and temperature; Negative: Rash, Breakdown Neuro Exam: Positive: Normal Gait, Normal Speech, Cranial Nerves 3-12 NL, Reflexes 2+ Psych Exam: Positive: Mental status NL, Mood NL, Oriented x 3 Assessment /Plan Assessment 88f with recurrent mrsa infections PNA has been on 4 weeks abx unclear if imaging represents a current infection continued on vanco levaquin added on admission Diskitis seems to have progressed on vanco continue vanco and rifampin blood cx is staph epi ct unremarkable ID eval tomorrow Dm monitor finger sticks continue sliding scale coverage diabetic diet Plan/VTE VTE Prophylaxis Ordered?: Yes VS, I&O, 24H, Fishbone Vital Signs/I&O Vital Signs Date Time Temp Pulse Resp B/P (MAP) Pulse Ox O2 Delivery O2 Flow Rate FiO2 01/31/19 15:34 18 01/31/19 14:00 96.9 82 138/56 (83) 100 01/27/19 16:58 Room Air I&O- Last 24 Hours up to 6 AM 01/31/19 06:00 Intake Total 2509 ml Balance 2509 ml Laboratory Data 24H LABS Laboratory Tests 2 01/30/19 20:40: Bedside Glucose (Misc Panel) 113H 01/31/19 07:20: Immature Granulocyte % (Auto) 1.2, White Blood Count 12.1H, Red Blood Count 4.08, Hemoglobin 10.0L, Hematocrit 34.7L, Mean Corpuscular Volume 85.0, Mean Corpuscular Hemoglobin 24.5L, Mean Corpuscular Hemoglobin Concent 28.8L, Red Cell Distribution Width 18.9H, Platelet Count 365, Neutrophils (%) (Auto) 86.8H, Lymphocytes (%) (Auto) 5.3L, Monocytes (%) (Auto) 5.5H, Eosinophils (%) (Auto) 0.7, Basophils (%) (Auto) 0.5, Neutrophils # (Auto) 10.5H, Lymphocytes # (Auto) 0.6L, Monocytes # (Auto) 0.7, Eosinophils # (Auto) 0.1, Basophils # (Auto) 0.1, Nucleated Red Blood Cells % (auto) 0.0, Erythrocyte Sedimentation Rate 71H, Anion Gap 6L, Glomerular Filtration Rate > 60.0, Blood Urea Nitrogen 14, Creatinine 0.69, Sodium Level 137, Potassium Level 3.8, Chloride Level 105, Carbon Dioxide Level 26, Calcium Level 9.1, C-Reactive Protein, Quantitative 12.60H, Vancomycin Level Trough 18.5 01/31/19 12:48: Bedside Glucose (Misc Panel) 113H 01/31/19 17:58: Bedside Glucose (Misc Panel) 165H CBC/BMP Laboratory Tests 01/31/19 07:20 Red Blood Count 4.08, Mean Corpuscular Volume 85.0, Mean Corpuscular Hemoglobin 24.5 L, Mean Corpuscular Hemoglobin Concent 28.8 L, Red Cell Distribution Width 18.9 H, Neutrophils (%) (Auto) 86.8 H, Lymphocytes (%) (Auto) 5.3 L, Monocytes (%) (Auto) 5.5 H, Eosinophils (%) (Auto) 0.7, Basophils (%) (Auto) 0.5, Neutrophils # (Auto) 10.5 H, Lymphocytes # (Auto) 0.6 L, Monocytes # (Auto) 0.7, Eosinophils # (Auto) 0.1, Basophils # (Auto) 0.1, Calcium Level 9.1 Microbiology Microbiology 01/30/19 Blood Culture - Preliminary, Resulted No growth after 24 hours . All specim... 01/27/19 Blood Culture - Preliminary, Resulted No Growth after 72 hours. All specime... 01/27/19 Blood Culture - Final, Complete Staphylococcus Epidermidis SANTO KAUFMAN MD Jan 31, 2019 19:00
[2019-01-31] MEDS: RIFAMPIN IV SCH (21:50)
[2019-01-31] MEDS: NS IV SCH (21:50)
[2019-01-31] MEDS: EZETIMIBE 10 MG TAB (ZETIA) PO SCH (21:52)
[2019-01-31] MEDS: SODIUM CHLORIDE 0.9% INJ 10 ML SYR IV PRN (21:54)
[2019-01-31 22:00] VITALS: BP 128/71
[2019-02-01 02:00] VITALS: BP 122/74
[2019-02-01] MEDS: HEPARIN SOD (PORCINE) 5000 UNITS/ML VIAL SC SCH ×3 (05:33→22:23)
[2019-02-01] MEDS: SODIUM CHLORIDE 0.9% INJ 10 ML SYR IV SCH ×2 (05:33→18:30)
[2019-02-01 06:00] VITALS: BP 126/76
[2019-02-01 06:01] LABS: BASO # 0.1 10^3/uL (0.0-0.2); BASO % 0.4 % (0.0-1.0); EOS # 0.1 10^3/uL (0.0-0.50); EOS % 0.7 % (0.0-3.0); HEMATOCRIT 30.5 % (36.0-47.0); HEMOGLOBIN 8.9 g/dl (12.0-15.5); LYMPH # 0.9 10^3/uL (1.5-4.5); LYMPH % 6.3 % (24.0-44.0); MEAN CORPUSCULAR HEMOGLOBIN 24.1 pg (27.0-33.0); MEAN CORPUSCULAR HGB CONC 29.2 g/dl (32.0-36.5); MEAN CORPUSCULAR VOLUME 82.7 fl (80.0-96.0); NEUTROPHILS # 11.6 10^3/uL (1.8-7.7); NEUTROPHILS % 84.2 % (36.0-66.0); PLATELET COUNT, AUTOMATED 365 10^3/uL (150-450); RED BLOOD COUNT 3.69 10^6/uL (4.00-5.40); WHITE BLOOD COUNT 13.8 10^3/uL (4.0-10.0)
[2019-02-01 06:23] LABS: BLOOD UREA NITROGEN 14 MG/DL (7-18); CALCIUM LEVEL 9.2 MG/DL (8.8-10.2); CARBON DIOXIDE LEVEL 24 MEQ/L (21-32); CHLORIDE LEVEL 106 MEQ/L (98-107); CREATININE FOR GFR 0.75 MG/DL (0.55-1.30); GLOMERULAR FILTRATION RATE > 60.0 (>32); GLUCOSE, FASTING 93 MG/DL (70-100); POTASSIUM SERUM 4.1 MEQ/L (3.5-5.1); SODIUM LEVEL 137 MEQ/L (136-145)
[2019-02-01] MEDS: HumaLOG INSULIN (NovoLOG) PER UNIT SC SCH ×3 (07:30→16:43)
[2019-02-01] MEDS: VANCOMYCIN HCL 750 MG, VIAL MATE ADAPTER 1 EACH in D5W 250 ML IV SCH (08:14)
[2019-02-01] MEDS: FOLIC ACID 1 MG TAB PO SCH (08:14)
[2019-02-01] MEDS: SPIRONOLACTONE 25 MG TAB PO SCH (08:15)
[2019-02-01] MEDS: ASPIRIN 81 MG ENTERIC TAB PO SCH (08:15)
[2019-02-01] MEDS: ALLOPURINOL 300 MG TAB PO SCH (08:15)
[2019-02-01] MEDS: DIGOXIN 0.125 MG TAB PO SCH (08:15)
[2019-02-01] MEDS: METOPROLOL SUCC (TopROL XL) 50MG **XL** TAB PO SCH ×2 (08:15→22:31)
[2019-02-01] MEDS: LIDOCAINE 5% (LIDODERM) PATCH TD SCH (08:16)
[2019-02-01] MEDS: FENTANYL REMOVAL DOCUMENTATION MISC XX SCH (09:43)
[2019-02-01] MEDS: LevoFLOXacin IV 750 MG in APPROPRIATE DILUENT 1 EA IV SCH (09:44)
[2019-02-01] MEDS: fentaNYL 12 MCG/HR PATCH TOP SCH (09:45)
[2019-02-01] MEDS: CLOBETASOL PROPIONATE EMOLLIENT 0.05% CR 60 GM TOP SCH ×2 (09:46→22:24)
[2019-02-01 10:00] VITALS: BP 92/68
[2019-02-01] MEDS: ACETAMINOPH W/CODEINE #3 TAB UD PO PRN ×2 (10:35→18:29)
[2019-02-01] MEDS ORDERED: ONDANSETRON 4MG/2ML VIAL (J2405) IV PRN (11:00)
[2019-02-01 14:00] VITALS: BP 100/66
--- NOTE | 2019-02-01 17:27 | IPNPDOC ---
Subjective Date Seen The patient was seen on 02/01/19. Subjective Chief Complaint/HPI 88f with chf, afib, dm, ckd, compression fractures, multiple hospitalizations over the past few months including mrsa bacteremia in october, mrsa pna and diskitis in december, both of which presented as pain radiating from chest to back, now presents with the same pain. Pt has been receiving vancomycin via picc at home to complete a 6 week course on 02/10. no complaints today, pain is well controlled Full ROS was performed and negative except as documented above. Objective Physical Examination General Exam: Positive: Alert, Cooperative, Moderate Distress Eye Exam: Positive: PERRLA, Conjunctiva & lids normal, EOMI; Negative: Sclera icteric ENT Exam: Positive: Atraumatic, Mucous membr. moist/pink, Pharynx Normal Neck Exam: Positive: Supple; Negative: JVD, thyromegaly Chest Exam: Positive: Clear to auscultation, Diminished Heart Exam: Positive: Rate Normal, Regular Rhythm, Normal S1, Normal S2; Negative: Murmurs, Rubs Abdomen Exam: Positive: Normal bowel sounds, Soft; Negative: Tenderness, Hepatospenomegaly Skin Exam: Positive: Nl turgor and temperature; Negative: Rash, Breakdown Neuro Exam: Positive: Normal Gait, Normal Speech, Cranial Nerves 3-12 NL, Reflexes 2+ Psych Exam: Positive: Mental status NL, Mood NL, Oriented x 3 Assessment /Plan Assessment 88f with recurrent mrsa infections PNA has been on 4 weeks abx unclear if imaging represents a current infection continued on vanco levaquin added on admission Diskitis seems to have progressed on vanco continue vanco and rifampin blood cx is staph epi ct unremarkable ID to evaluate today Dm monitor finger sticks continue sliding scale coverage diabetic diet palliative care to evaluate for possible pain management after dc Plan/VTE VTE Prophylaxis Ordered?: Yes VS, I&O, 24H, Fishbone Vital Signs/I&O Vital Signs Date Time Temp Pulse Resp B/P (MAP) Pulse Ox O2 Delivery O2 Flow Rate FiO2 02/01/19 14:00 97.4 95 18 100/66 (77) 97 01/27/19 16:58 Room Air I&O- Last 24 Hours up to 6 AM 02/01/19 06:00 Intake Total 370 ml Balance 370 ml Laboratory Data 24H LABS Laboratory Tests 2 01/31/19 17:58: Bedside Glucose (Misc Panel) 165H 02/01/19 05:40: Immature Granulocyte % (Auto) 1.4, White Blood Count 13.8H, Red Blood Count 3.69L, Hemoglobin 8.9L, Hematocrit 30.5L, Mean Corpuscular Volume 82.7, Mean Corpuscular Hemoglobin 24.1L, Mean Corpuscular Hemoglobin Concent 29.2L, Red Cell Distribution Width 18.8H, Platelet Count 365, Neutrophils (%) (Auto) 84.2H, Lymphocytes (%) (Auto) 6.3L, Monocytes (%) (Auto) 7.0H, Eosinophils (%) (Auto) 0.7, Basophils (%) (Auto) 0.4, Neutrophils # (Auto) 11.6H, Lymphocytes # (Auto) 0.9L, Monocytes # (Auto) 1.0H, Eosinophils # (Auto) 0.1, Basophils # (Auto) 0.1, Nucleated Red Blood Cells % (auto) 0.0, Anion Gap 7L, Glomerular Filtration Rate > 60.0, Blood Urea Nitrogen 14, Creatinine 0.75, Sodium Level 137, Potassium Level 4.1, Chloride Level 106, Carbon Dioxide Level 24, Calcium Level 9.2 02/01/19 12:19: Bedside Glucose (Misc Panel) 155H 02/01/19 16:23: Bedside Glucose (Misc Panel) 102 CBC/BMP Laboratory Tests 02/01/19 05:40 Red Blood Count 3.69 L, Mean Corpuscular Volume 82.7, Mean Corpuscular Hemoglobin 24.1 L, Mean Corpuscular Hemoglobin Concent 29.2 L, Red Cell Distribution Width 18.8 H, Neutrophils (%) (Auto) 84.2 H, Lymphocytes (%) (Auto) 6.3 L, Monocytes (%) (Auto) 7.0 H, Eosinophils (%) (Auto) 0.7, Basophils (%) (Auto) 0.4, Neutrophils # (Auto) 11.6 H, Lymphocytes # (Auto) 0.9 L, Monocytes # (Auto) 1.0 H, Eosinophils # (Auto) 0.1, Basophils # (Auto) 0.1, Calcium Level 9.2 Microbiology Microbiology 01/30/19 Blood Culture - Preliminary, Resulted No Growth after 48 hours. All Specime... 01/27/19 Blood Culture - Final, Complete NO GROWTH AFTER 5 DAYS 01/27/19 Blood Culture - Final, Complete Staphylococcus Epidermidis SANTO KAUFMAN MD Feb 01, 2019 17:27
[2019-02-01 18:00] VITALS: BP 118/54
[2019-02-01 22:00] VITALS: BP 113/80
[2019-02-01] MEDS: RIFAMPIN IV SCH (22:23)
[2019-02-01] MEDS: NS IV SCH (22:23)
[2019-02-01] MEDS: EZETIMIBE 10 MG TAB (ZETIA) PO SCH (22:23)
[2019-02-02 02:00] VITALS: BP 108/64
[2019-02-02] MEDS: ACETAMINOPH W/CODEINE #3 TAB UD PO PRN ×4 (02:15→20:38)
[2019-02-02] MEDS: SODIUM CHLORIDE 0.9% INJ 10 ML SYR IV PRN ×2 (02:16→09:31)
[2019-02-02 06:00] VITALS: BP 116/60
[2019-02-02] MEDS: HEPARIN SOD (PORCINE) 5000 UNITS/ML VIAL SC SCH ×3 (06:06→20:35)
[2019-02-02 06:07] LABS: BASO # 0.1 10^3/uL (0.0-0.2); BASO % 0.4 % (0.0-1.0); EOS % 0.3 % (0.0-3.0); HEMATOCRIT 30.2 % (36.0-47.0); HEMOGLOBIN 8.9 g/dl (12.0-15.5); LYMPH # 0.5 10^3/uL (1.5-4.5); LYMPH % 4.1 % (24.0-44.0); MEAN CORPUSCULAR HEMOGLOBIN 24.7 pg (27.0-33.0); MEAN CORPUSCULAR HGB CONC 29.5 g/dl (32.0-36.5); MEAN CORPUSCULAR VOLUME 83.9 fl (80.0-96.0); MONO # 0.7 10^3/uL (0.0-0.8); MONO % 6.2 % (0.0-5.0); NEUTROPHILS # 10.5 10^3/uL (1.8-7.7); NEUTROPHILS % 87.5 % (36.0-66.0); PLATELET COUNT, AUTOMATED 359 10^3/uL (150-450)
[2019-02-02] MEDS: SODIUM CHLORIDE 0.9% INJ 10 ML SYR IV SCH ×2 (06:07→16:42)
[2019-02-02 06:29] LABS: BLOOD UREA NITROGEN 11 MG/DL (7-18); CARBON DIOXIDE LEVEL 25 MEQ/L (21-32); CHLORIDE LEVEL 105 MEQ/L (98-107); CREATININE FOR GFR 0.64 MG/DL (0.55-1.30); GLOMERULAR FILTRATION RATE > 60.0 (>32); GLUCOSE, FASTING 125 MG/DL (70-100); POTASSIUM SERUM 4.2 MEQ/L (3.5-5.1); SODIUM LEVEL 136 MEQ/L (136-145)
[2019-02-02] MEDS: HumaLOG INSULIN (NovoLOG) PER UNIT SC SCH ×3 (07:47→16:41)
[2019-02-02] MEDS: VANCOMYCIN HCL 750 MG, VIAL MATE ADAPTER 1 EACH in D5W 250 ML IV SCH (07:47)
[2019-02-02] MEDS: LIDOCAINE 5% (LIDODERM) PATCH TD SCH (07:47)
[2019-02-02] MEDS: FOLIC ACID 1 MG TAB PO SCH (07:48)
[2019-02-02] MEDS: SPIRONOLACTONE 25 MG TAB PO SCH (07:48)
[2019-02-02] MEDS: ALLOPURINOL 300 MG TAB PO SCH (07:48)
[2019-02-02] MEDS: DIGOXIN 0.125 MG TAB PO SCH (07:48)
[2019-02-02] MEDS: ASPIRIN 81 MG ENTERIC TAB PO SCH (07:48)
[2019-02-02] MEDS: METOPROLOL SUCC (TopROL XL) 50MG **XL** TAB PO SCH ×2 (07:48→20:34)
[2019-02-02] MEDS: CLOBETASOL PROPIONATE EMOLLIENT 0.05% CR 60 GM TOP SCH ×2 (07:59→20:35)
[2019-02-02 10:00] VITALS: BP 117/61
--- NOTE | 2019-02-02 12:01 | IPNPDOC ---
Text Note Date of Service The patient was seen on 02/02/19. NOTE Subjective: Patient seen and examined at bedside. Complains of general malaise, back pain. Objective: General: NAD, lying comfortably in bed, elderly, frail HEENT: NC/AT A/P: 88f with chf, afib, dm, ckd, compression fractures, multiple hospitalizations over the past few months including mrsa bacteremia in october, mrsa pna and diskitis in december, both of which presented as pain radiating from chest to back, now presents with the same pain. Pt has been receiving vancomycin via picc at home to complete a 6 week course on 02/10. #PNA has been on 4 weeks abx unclear if imaging represents a current infection continued on vanco levaquin added on admission #Diskitis seems to have progressed on vanco continue vanco and rifampin ct unremarkable #+BCx - staph epi - contaminant? - repeat BCx negative to date - on vanco #DM monitor finger sticks continue sliding scale coverage diabetic diet palliative care to evaluate for possible pain management after dc Dispo: palliative c/s pending, ID f/u VS,Fishbone, I+O VS, Fishbone, I+O Laboratory Tests 02/02/19 05:44 Red Blood Count 3.60 L, Mean Corpuscular Volume 83.9, Mean Corpuscular Hemoglobin 24.7 L, Mean Corpuscular Hemoglobin Concent 29.5 L, Red Cell Distribution Width 18.6 H, Neutrophils (%) (Auto) 87.5 H, Lymphocytes (%) (Auto) 4.1 L, Monocytes (%) (Auto) 6.2 H, Eosinophils (%) (Auto) 0.3, Basophils (%) (Auto) 0.4, Neutrophils # (Auto) 10.5 H, Lymphocytes # (Auto) 0.5 L, Monocytes # (Auto) 0.7, Eosinophils # (Auto) 0.0, Basophils # (Auto) 0.1, Calcium Level 9.0 Vital Signs Date Time Temp Pulse Resp B/P (MAP) Pulse Ox O2 Delivery O2 Flow Rate FiO2 02/02/19 10:02 20 02/02/19 10:00 97.9 85 117/61 (79) 94 01/27/19 16:58 Room Air I&O- Last 24 Hours up to 6 AM 02/02/19 05:59 Intake Total 1260 ml Output Total 0 ml Balance 1260 ml RANULFO GILES MD Feb 02, 2019 12:01
--- NOTE | 2019-02-02 12:52 | CR ---
DATE OF CONSULTATION: 02/01/2019 TIME: 5:00 p.m. REASON FOR CONSULTATION: I was asked by the hospitalist to evaluate for worsening discitis at T7-T8. HISTORY OF PRESENT ILLNESS: Mrs. Hernandez is a pleasant 88-year-old frail female who was admitted on January 27 complaining of persistent sharp left-sided chest pain since hospital discharge. The patient also had a productive cough and some diarrhea the day prior to admission. Her inflammation markers including sed rate and CRP had been increasing. She denied having any fever or chills. She had a decreased appetite. The patient has been treated for Methicillin-resistant Staphylococcus aureus (MRSA) bacteremia and pneumonia since November 23. Initial admission was on 11/23, discharged on 12/10 after she was treated with the 15 days of IV vancomycin with presumptive MRSA pneumonia and bacteremia. Transthoracic echocardiogram was negative. She was admitted 2 weeks later on December 29 with persistent chest pain and CT chest was consistent with discitis at T7-T8 along with worsening consolidations of the lung. She was discharged on January 07 with a PICC line on IV vancomycin with a plan to continue 6 weeks of IV vancomycin with end of treatment being 02/10. The patient continued with worsening pain and had not been given any narcotics by her primary care providers so her pain was not well controlled and therefore she was brought back to the hospital. On evaluation her sed rate had increased to 107, CRP had increased from 3.[address] chest done on admission shows worsening of T7-T8 diskitis and increased consolidation in the right lower lobe, lingula and left lower lobe. The patient was started by the hospitalist on IV levofloxacin for worsening pneumonia, rifampin IV 600 mg every 24 hours was added for discitis along with continued vancomycin. PAST MEDICAL HISTORY: Significant for: Chronic systolic, diastolic congestive heart failure. Atrial fibrillation. Dyslipidemia. Non-insulin dependent diabetes. Chronic kidney disease. Osteoporosis with compression of T10. Osteoarthritis. History of unrepaired right hip fracture. MRSA pneumonia 11/23/2018 discharged 12/10/2018 with bacteremia. Admission 12/29 with discitis T7-T8 and MRSA pneumonia with MRSA bacteremia. PAST SURGICAL HISTORY: Hysterectomy. Bladder sling. Bilateral cataract surgery. SOCIAL HISTORY: She lives alone. She denies any tobacco, alcohol or drug use. She has caregivers 24 hours a day and her daughter Abi is a registered nurse. FAMILY HISTORY: Significant for congestive heart failure. MEDICATIONS: - rifampin 600 mg IV q.24 h - fentanyl patch 12 mcg topical - Zofran 4 mg IV q. 5 p.r.n. - levofloxacin 750 mg IV q.48 h - allopurinol 300 mg p.o. daily - aspirin 81 mg p.o. daily - folic acid 1 mg p.o. daily - Aldactone 25 mg p.o. daily - digoxin 0.125 mg daily - lidocaine patch to chest - vancomycin 750 mg IV q.24 h - insulin sliding scale - clobetasol to legs b.i.d. - Zetia 10 mg p.o. q.h.s. - metoprolol 50 mg p.o. b.i.d. - colchicine 0.6 mg p.o. p.r.n. gout flare-up ALLERGIES: No known drug allergies. LABORATORIES: White count 13.8, hemoglobin 8.9, hematocrit 30.5, platelets 365, 84% neutrophils, 6% lymphocytes, 7% monocytes, 0.7% eosinophils. ESR 71. Sodium 137, potassium 4.1, chloride 106, bicarb 24, BUN 14, creatinine 0.75, glucose 93, calcium 9.2, CRP 12.6. Procalcitonin 0.2. Vancomycin trough 18.5. Blood cultures on 01/27 one out of two had positive blood culture for staph epidermidis and 01/30 blood culture was negative. CT chest done on 01/28 shows worsening discitis at T7-T8. Areas of consolidation of the right lower lobe lingula and left lower lobe with small pleural effusion, new small area ill-defined in the right middle lobe. Cardiomegaly with moderate pulmonary vascular congestion is CT of the abdomen no acute pathology. PHYSICAL EXAM: Frail elderly female in moderate discomfort. Temperature is 97.7, pulse 61, respirations 20, blood pressure 113/80, O2 sat 97% on room air. She has been afebrile throughout this admission. HEART: Regular rate and rhythm. LUNGS: Diminished breath sounds with few crackles at both bases. ABDOMEN: Soft, nontender. No hepatosplenomegaly. BACK: Severe kyphoscoliosis with tenderness along T7, T8, T9. EXTREMITIES: +1 ankle edema bilaterally with excoriation from scratch uriarte and scabs with a couple ulcerations on both legs that are open but no evidence of infection. No purulence. There is hyperpigmented venous stasis changes. SKIN: Has a rash which is mostly fine macular on the palms, erythematous, non blanching does not extend anywhere else, which is new and needs to be monitored. IMPRESSION: This is an 88-year-old female who was admitted with worsening back pain and CT evidence of worsening discitis from T7-T8 in spite of being on appropriate antibiotics with IV vancomycin and having appropriate vancomycin levels. Her sed rate and CRP has worsened as well. CT chest also suggest worsening pneumonia which could be from mal clearance of secretions versus superimposed pneumonia from other etiologies than MRSA. Her procalcitonin is not significantly elevated to suggest bacterial infection that is not controlled. It was only at 0.2, but other inflammatory markers are elevated. The patient is very frail and has failed treatment since November 23 with staph MRSA coverage. I suspect this is related more to age, severe lung disease, kyphoscoliosis and difficulty to clear her secretions. PLAN: 1. Discontinue IV rifampin switch to rifampin p.o. 300 mg twice a day. 2. Continue IV vancomycin at 750 mg q.24 h keeping trough levels between 15 and 20. 3. Switch levofloxacin to moxifloxacin 400 mg p.o. daily which would be better anaerobic coverage for possible aspiration pneumonia. Will add urine legionnaire and pneumococcal antigen. The patient is not able to produce any phlegm. If cough becomes productive, please obtain sputum Gram stain and culture. I have discussed with the presence of her daughter, Abi, who is a nurse, palliative care, comfort care, hospice care, and the fact that she probably is not going to improve significantly especially in relation to the severe back pain from discitis. The patient would like to think about it and further discussion tomorrow with palliative care nursing who will be present. TD
[2019-02-02] MEDS ORDERED: traMADol 50 MG TAB PO PRN (13:30)
[2019-02-02 14:00] VITALS: BP 115/62
[2019-02-02] MEDS ORDERED: DOCUSATE SODIUM 100 MG CAP PO PRN (14:30)
[2019-02-02 18:00] VITALS: BP 130/69
[2019-02-02] MEDS: EZETIMIBE 10 MG TAB (ZETIA) PO SCH (20:34)
--- NOTE | 2019-02-02 20:39 | CR.PDOC ---
General Date of Consultation: Feb 02, 2019 Referring Provider: RANULFO GILES MD Primary Care Physician: Anthony Mckenzie MD Attending Physician: Jitendra De Oliveira MD Consultation REASON FOR CONSULTATION/CHIEF COMPLAINT: Clarification of goals of care HISTORY OF PRESENT ILLNESS: 88 year old female with 4 admissions in the past few months, mostly for pneumonia but also for uncontrolled back pain. 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 She has become basically bedbound at home; PT was ordered after one of her previous admissions, however, justas she was getting strong enough to stand at the bedside, she had to come to the ED with pneumonia again. She has / care at home with home health aids, and was on IV Vanco for MRSA pneumonia via PICC line prior to this latest admission. Her PCP will only order T+C#3 1 tablet every 6 hours prn and fentanyl 12 mcg patch which Anabelle reports is inadequate to manage her worsening back pain due to discitis. I saw her this morning along with Mally Echeverria LMSW and Anabelle's daughter, Negrita, was present for the visit. Anabelle expressed the notion Zoila "wants me out of the way" and declined to make any decisions about clarifying her goals of care. It was Anabelle's opinion that her 's last July could have been avoided "if Negrita had done something sooner". (he had an MS, was resusitated and it sounds as though he was placed on comfort care due to medical futility ). Anabelle clearly has strong feelings about what she perceives as a lack of caring on the part of her daughter, though Negrita spends every night in her mother's home and visits her in the hospital regularly. I attemted to engage Anabelle in a conversation about how her pain might be better managed, but she declined to discuss this or anything else with Mally or myself and I told her I would return later in the day. I came back at 1900 and spent over 60 minutes listening to her thoughts and feelings about her current medical state ( " I don't know why I don't get better...I think if I had more pain medicine I might be able to move more...maybe I will get better.."), her conflictred feelings around her 's and her own goals of care and her feelings about how she perceives her daughter. She told me the staff hospitalist had agreed to change her T+C#3 to 1 tablets every 4 hours instead of 2 tablets every 6 hr and she was hopeful this might be helpful for her back pain. She describes having sharp aching pain in the mid back that feels like it is " solid right through to my chest". She reported she has BM q 3 day and this is her usual bowel pattern. ALLERGIES: Please see below. HOME MEDICATIONS: Please see below. PAST MEDICAL HISTORY: 1. MRSA pneumonia 2. discitis 3. Afib 4. weakness 5. malnutrition PAST SURGICAL HISTORY: 1. Bladder sling 2. hysterectomy SOCIAL HISTORY: Marital status and/or living arrangements: , lives in her [address] year old home with 24/7 care Children: 2 Employment: retired Tobacco use:NA ETOH: NA Illicit drug use: NA IV drug use: NA REVIEW OF SYSTEMS: CONSTITUTIONAL: denies fevers, chills, night sweats. +weight loss HEENT: no vision changes, no sinus pain/pressure CARDIOVASCULAR: denies chest pain or palpitations. Some lower ext edema at times RESPIRATORY: [place], occasional nonproductive cough GENITOURINARY: no dysuria or hematuria MUSCULOSKELETAL: chronic back pain GASTROINTESTINAL: nausea, early satiety, anorexia SKIN: no rashes NEUROLOGICAL: weak, reports she "rambles" PSYCHIATRIC: irritable, angry, states she feels "hurt" ENDOCRINE: denies hyper/hypoglycemia HEMATOLOGIC/LYMPHATIC: anemic ALLERGIC/IMMUNOLOGIC: . PHYSICAL EXAMINATION: VITAL SIGNS: Please see below. GENERAL APPEARANCE: Frail looking woman with sallow skin in bed, uncomfortable at times HEENT: JOSEPH, EOM intact RESPIRATORY: reduced breath soudns in bilateral bases CARDIOVASCULAR: irregular ABDOMEN: +BS, no rebound or guarding, no ascites EXTREMITIES: [no CCE NEUROLOGICAL: upper and lower ext strength 2-3/5, no tremor noted PSYCHIATRIC: appears to have capacity. LABORATORY DATA: Please see below. ASSESSMENT/PLAN: Clarification of goals of care: she clearly was NOT ready to discuss hospice referral earlier today and I chose not to pursue this discussion further tonight. She is aware of [facility] and although travelling to our clinic would be difficult for her, she is willing to do so as long as I do not require her to come in more than once every 3 months or so. I can do trouberl shooting over the phone between visits. We agreed to see how she odes overnight and if this change in her T+C#3 helps control her back pain better. I discussed increasing her fentanyl patch earlier today, but she was not wanting to do that at that time. Mally and I will return to talk with her tomorrow. I don't think I can expect to have a discussion about hospice until she feels she can trust me ( and Mally ) though she did seem far less angry and more willing to talk with me tonight. Vital Signs/I&O Vital Signs Date Time Temp Pulse Resp B/P (MAP) Pulse Ox O2 Delivery O2 Flow Rate FiO2 02/02/19 18:00 97.8 87 16 130/69 (89) 96 01/27/19 16:58 Room Air I&O- Last 24 Hours up to 6 AM 02/02/19 06:00 Intake Total 1110 ml Output Total 0 ml Balance 1110 ml Laboratory Data Labs 24H Laboratory Tests 2 02/02/19 05:44: Immature Granulocyte % (Auto) 1.5, White Blood Count 12.0H, Red Blood Count 3.60L, Hemoglobin 8.9L, Hematocrit 30.2L, Mean Corpuscular Volume 83.9, Mean Corpuscular Hemoglobin 24.7L, Mean Corpuscular Hemoglobin Concent 29.5L, Red Cell Distribution Width 18.6H, Platelet Count 359, Neutrophils (%) (Auto) 87.5H, Lymphocytes (%) (Auto) 4.1L, Monocytes (%) (Auto) 6.2H, Eosinophils (%) (Auto) 0.3, Basophils (%) (Auto) 0.4, Neutrophils # (Auto) 10.5H, Lymphocytes # (Auto) 0.5L, Monocytes # (Auto) 0.7, Eosinophils # (Auto) 0.0, Basophils # (Auto) 0.1, Nucleated Red Blood Cells % (auto) 0.0, Anion Gap 6L, Glomerular Filtration Rate > 60.0, Blood Urea Nitrogen 11, Creatinine 0.64, Sodium Level 136, Potassium Level 4.2, Chloride Level 105, Carbon Dioxide Level 25, Calcium Level 9.0, C- Reactive Protein, Quantitative 13.10H 02/02/19 11:41: Bedside Glucose (Misc Panel) 161H 02/02/19 16:34: Bedside Glucose (Misc Panel) 79L CBC/BMP Laboratory Tests 02/02/19 05:44 Red Blood Count 3.60 L, Mean Corpuscular Volume 83.9, Mean Corpuscular Hemoglobin 24.7 L, Mean Corpuscular Hemoglobin Concent 29.5 L, Red Cell Di stribution Width 18.6 H, Neutrophils (%) (Auto) 87.5 H, Lymphocytes (%) (Auto) 4.1 L, Monocytes (%) (Auto) 6.2 H, Eosinophils (%) (Auto) 0.3, Basophils (%) (Auto) 0.4, Neutrophils # (Auto) 10.5 H, Lymphocytes # (Auto) 0.5 L, Monocytes # (Auto) 0.7, Eosinophils # (Auto) 0.0, Basophils # (Auto) 0.1, Calcium Level 9.0 Microbiology Microbiology 01/30/19 Blood Culture - Preliminary, Resulted No Growth after 72 hours. All specime... 01/27/19 Blood Culture - Final, Complete NO GROWTH AFTER 5 DAYS 01/27/19 Blood Culture - Final, Complete Staphylococcus Epidermidis Allergies Coded Allergies: No Known Allergies (Unverified , 05/11/18) Home Medications Scheduled Allopurinol (Zyloprim) 300 Mg Tab, 300 MG PO DAILY, (Reported) Aspirin (Aspirin EC) 81 Mg Tab, 81 MG PO DAILY, (Reported) Clobetasol Propionate (Clobetasol Emollient 0.05% Crm) 60 Gm Cream..g., 1 DOSE TOP BID, (Reported) USES ON LEGS Digoxin (Digoxin) 125 Mcg Tablet, 125 MCG PO DAILY, (Reported) Ezetimibe (Zetia) 10 Mg Tab, 10 MG PO QHS, (Reported) Fentanyl (Fentanyl) 12 Mcg Patch.td72, 1 PATCH TOP Q3RD, (Reported) APPLIED TO RIGHT CHEST Folic Acid (Folic Acid) 1 Mg Tab, 1 MG PO DAILY, (Reported) Metoprolol Succinate (Metoprolol Succinate) 50 Mg Tab.er.24h, 50 MG PO BID, (Reported) Spironolactone (Spironolactone) 25 Mg Tab, 25 MG PO DAILY, (Reported) Vancomycin/0.9 % Sod Chloride (Vanco 750 mg/150 ml-0.9% NaCl) 750 Mg/150 Ml Plast..bag, 750 MG IV DAILY, (Reported) Scheduled PRN Acetaminophen with Codeine (Tylenol with Codeine #3 Tablet) 1 Each Tablet, 1 TAB PO BID PRN for PAIN, (Reported) Colchicine (Colchicine) 0.6 Mg Tab, 0.6 MG PO DAILY PRN for GOUT, (Reported) Lanolin Alcohol/Mo/W.pet/[place] (Eucerin Creme) 454 Gm Cream..g., 1 DOSE TOP BID PRN for DRY SKIN, (Reported) USES ON ARMS AND LEGS NEEDED Anne-Marie PEACE PREMIX OPERATOR [employer]CEN[employer]ATE Feb 02, 2019 20:38
[2019-02-02 22:00] VITALS: BP 116/68
[2019-02-03] MEDS: ACETAMINOPH W/CODEINE #3 TAB UD PO PRN ×4 (00:34→18:49)
[2019-02-03 02:00] VITALS: BP 107/54
[2019-02-03 06:00] VITALS: BP 119/70
[2019-02-03] MEDS: MOXIFLOXACIN 400 MG TAB PO SCH (06:34)
[2019-02-03] MEDS: HEPARIN SOD (PORCINE) 5000 UNITS/ML VIAL SC SCH ×3 (06:35→21:41)
[2019-02-03] MEDS: SODIUM CHLORIDE 0.9% INJ 10 ML SYR IV SCH ×2 (06:36→17:46)
--- NOTE | 2019-02-03 07:05 | PHACANCOPD ---
PHARMACY VANCOMYCIN DOSING Pt Demographics Demographics Patient Age:88 , Weight:50.700 , Gender: female Adjusted Body Weight Vancomycin Vancomycin indication: PNA Vancomycin Target Ranges: 15-20 mcg/ml Vancomycin Load Y/N: No Load Dose Date Time Vancomycin Load Dose: Date: Time: Vancomycin Dose Date: 01/27/19. Current Vancomycin Dose: [750MG IV Q24H] initiated at transferring facility Intermittent Dosing?: No Labs Micro Microbiology 01/30/19 Blood Culture - Preliminary, Resulted No Growth after 72 hours. All specime... 01/27/19 Blood Culture - Final, Complete NO GROWTH AFTER 5 DAYS 01/27/19 Blood Culture - Final, Complete Staphylococcus Epidermidis Creatinine Clearance Date:01/27/19. Creatinine Clearance: [>40ml/min]. Assessment and Plan Maintaining Current Dose?: No Reason for dose change: Trough too high Pharmacist Note Pharmacist Note Date: 02/03/19. Pharmacist note:Vancomycin trough drawn this morming@5:44 reported as 21.2.SCR=0.64-Will adjust Vancomycin dose to 500mg IV Q24H beginning with this morning's dose.Will monitor SCR and next trough to determine if 500mg will be continued.-will continue to follow 01/31: Patient's trough resulted today at 18.5. She will be continued on her home dose of Vancomycin 750mg IV q24h. We will continue to monitor and make changes as necessary. 01/30: Patient's trough today resulted at 18.7. 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 She will be continued on Vancomycin 750mg IV q24h for now and we will obtain another trough tomorrow morning to ensure patient isn't accumulating on this dose. Date: 01/27/19. PharmD note: THE PATIENT WAS TRANSFERRED HERE ALREADY ON VANCO 750MG IV Q24H. THE PATIENT WAS GIVEN 500MG IV x1 DOSE ON ADMISSION AFTER A VANCO RANDOM LEVEL WAS FOUND TO BE 15.9 mcg/ml. THE PHARMACY CONSULT OCCURRED AFTER THAT. IN THE MORNING WE WILL CONTINUE WITH VANCO 750MG IV Q24H STARTING AT 08:00 [facility] Feb 03, 2019 07:05
[2019-02-03] MEDS: LIDOCAINE 5% (LIDODERM) PATCH TD SCH (08:00)
[2019-02-03] MEDS: FOLIC ACID 1 MG TAB PO SCH (08:00)
[2019-02-03] MEDS: SPIRONOLACTONE 25 MG TAB PO SCH (08:00)
[2019-02-03] MEDS: ASPIRIN 81 MG ENTERIC TAB PO SCH (08:00)
[2019-02-03] MEDS ORDERED: VANCOMYCIN HCL 500 MG in D5W MINI-BAG PLUS 100 ML IV SCH (08:00)
[2019-02-03] MEDS: HumaLOG INSULIN (NovoLOG) PER UNIT SC SCH ×3 (08:00→17:45)
[2019-02-03] MEDS: ALLOPURINOL 300 MG TAB PO SCH (08:01)
[2019-02-03] MEDS: DIGOXIN 0.125 MG TAB PO SCH (08:04)
[2019-02-03] MEDS: METOPROLOL SUCC (TopROL XL) 50MG **XL** TAB PO SCH ×2 (08:19→21:41)
[2019-02-03] MEDS: CLOBETASOL PROPIONATE EMOLLIENT 0.05% CR 60 GM TOP SCH ×2 (08:34→21:41)
[2019-02-03 10:00] VITALS: BP 117/70
[2019-02-03] MEDS: SODIUM CHLORIDE 0.9% INJ 10 ML SYR IV PRN (10:56)
--- NOTE | 2019-02-03 11:13 | PHACANCOPD ---
PHARMACY VANCOMYCIN DOSING Pt Demographics Demographics Patient Age:88 , Weight:50.700 , Gender: female Adjusted Body Weight Events Past 24 Hours Events Past 24 Hours: NO: Dialysis, Diuretic Therapy, Change in CrCl, Fever, Elevation in WBC, Pending Diagnostics, Pending Procedures, Other Vancomycin Vancomycin indication: PNA Vancomycin Target Ranges: 15-20 mcg/ml Vancomycin Load Y/N: No Load Dose Date Time Vancomycin Load Dose: Date: Time: Vancomycin Dose Date: 01/27/19. Current Vancomycin Dose: [750MG IV Q24H] initiated at transferring facility Intermittent Dosing?: No Labs Micro Microbiology 01/30/19 Blood Culture - Preliminary, Resulted No Growth after 72 hours. All specime... 01/27/19 Blood Culture - Final, Complete NO GROWTH AFTER 5 DAYS 01/27/19 Blood Culture - Final, Complete Staphylococcus Epidermidis Creatinine Clearance Date:01/27/19. Creatinine Clearance: [>40ml/min]. Assessment and Plan Maintaining Current Dose?: No Reason for dose change: Other Pharmacist Note Pharmacist Note Date: 02/03/19. Pharmacist note:[facility] reported as 21.2.SCR=0.64-Will adjust Vancomycin dose to 500mg IV Q24H beginning with this morning's dose.Will monitor SCR and next trough to determine if 500mg will be continued.-will continue to followIt was discovered @1108 that trough had been drawn around 2 hours early @0511. Patient already received 500mg dose today. I have changed dose back to 750mg IV Vanco q24h starting at 0600 tomorrow. SCr was not obtained today. Will order tomorrow am if not received. Will continue to monitor patient's renal function and adjust dose as needed. 01/31: Patient's trough resulted today at 18.5. She will be continued on her home dose of Vancomycin 750mg IV q24h. We will continue to monitor and make changes as necessary. 01/30: Patient's trough today resulted at 18.7. 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 She will be continued on Vancomycin 750mg IV q24h for now and we will obtain another trough tomorrow morning to ensure patient isn't accumulating on this dose. Date: 01/27/19. PharmD note: THE PATIENT WAS TRANSFERRED HERE ALREADY ON VANCO 750MG IV Q24H. THE PATIENT WAS GIVEN 500MG IV x1 DOSE ON ADMISSION AFTER A VANCO RANDOM LEVEL WAS FOUND TO BE 15.9 mcg/ml. THE PHARMACY CONSULT OCCURRED AFTER THAT. IN THE MORNING WE WILL CONTINUE WITH VANCO 750MG IV Q24H STARTING AT 08:00 [facility] Feb 03, 2019 11:13
--- NOTE | 2019-02-03 11:55 | CR.PDOC ---
General Date of Consultation: Feb 03, 2019 Referring Provider: RANULFO GILES MD Primary Care Physician: Anthony Mckenzie Attending Physician: Jitendra De Oliveira MD Consultation REASON FOR CONSULTATION/CHIEF COMPLAINT:Follow up this morning for chronically ill female who has discitis in 2 areas of her thoracic spine. She stated the cahnge in her tylenol and codeine was not helpful. Daughter Abi reported she had a difficult night with little sleep. HISTORY OF PRESENT ILLNESS: se previous consult note. ALLERGIES: Please see below. HOME MEDICATIONS: Please see below. PAST MEDICAL HISTORY: 1. discitis 2. Afib REVIEW OF SYSTEMS: CONSTITUTIONAL: no fevers or chills HEENT: no vision changes, nasal congestion, sore throat. Broekn teeth making eating difficult CARDIOVASCULAR: denies schest pain or palpitations RESPIRATORY: dyspneic GENITOURINARY: denies dysuria . MUSCULOSKELETAL: pain in thoracic spine GASTROINTESTINAL: anorexia, nausea. SKIN: no rasehs NEUROLOGICAL: weak PSYCHIATRIC: irritable ENDOCRINE: osteoporosis HEMATOLOGIC/LYMPHATIC: anemia ALLERGIC/IMMUNOLOGIC: . PHYSICAL EXAMINATION: VITAL SIGNS: Please see below. GENERAL APPEARANCE: Frail appearing female resting on her side. Angry, refusing to talk to me this morning HEENT: Icteric, JOSEPH RESPIRATORY: dyspneic at rest, O2 sats above 90 CARDIOVASCULAR: irregular. ABDOMEN: scaphoid, refused exam EXTREMITIES: refused exam NEUROLOGICAL:refused exam. PSYCHIATRIC: Angry and irritable LABORATORY DATA: Please see below. ASSESSMENT/PLAN: 1. Thoracic pain from discitis. I offered to increase her fentanyl patch dose ( or at least speak with hospitalist about this ). She waved me away and told me to talk to her daughter, Negrita. I did speak with Negrita and nursing staff. I then returned to see Anabelle and asked if she would be willing to try the metabolite of codiene that works for pain once to see if this helped her. She waved me away dismissively and told me she did not want to discuss anything with me at this point. If she has a change of heart later in the day, my suggestion would be to change T+C#3 to morphine 5 mg po q 3 hr prn. 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 Another straegy would be to change T+C#3 to plain codiene 30 mg po q 4 hr prn. She might accept this. It would make perfect sense to increase fentanyl patch to 25 mcg hour q 3 day for better baseline pain control, but she is unlikely to accept this either. I also some with Negrita about gabapentin 200 mg po qhs which is a medication typically used for her discitis; Negrita stated her PCP offered this and Anabelle declined it. I will try speaking with her later today after she has had a chance to rest to see if she continues to be willing to have me follow her as an outpatient at [facility]. What I have to offer her, I am uncertain, given her penchant for refusing everything ( [facility] Vital Signs/I&O Vital Signs Date Time Temp Pulse Resp B/P (MAP) Pulse Ox O2 Delivery O2 Flow Rate FiO2 02/03/19 08:19 95 103/62 02/03/19 06:35 18 02/03/19 06:00 98.0 93 I&O- Last 24 Hours up to 6 AM 02/03/19 06:00 Intake Total 280 ml Output Total 0 ml Balance 280 ml Laboratory Data Labs 24H Laboratory Tests 2 02/02/19 16:34: Bedside Glucose (Misc Panel) 79L 02/03/19 05:11: Vancomycin Level Trough 21.2H 02/03/19 06:11: Bedside Glucose (Misc Panel) 156H Microbiology Microbiology 01/30/19 Blood Culture - Preliminary, Resulted No Growth after 72 hours. All specime... 01/27/19 Blood Culture - Final, Complete NO GROWTH AFTER 5 DAYS 01/27/19 Blood Culture - Final, Complete Staphylococcus Epidermidis Allergies Coded Allergies: No Known Allergies (Unverified , 05/11/18) Home Medications Scheduled Allopurinol (Zyloprim) 300 Mg Tab, 300 MG PO DAILY, (Reported) Aspirin (Aspirin EC) 81 Mg Tab, 81 MG PO DAILY, (Reported) Clobetasol Propionate (Clobetasol Emollient 0.05% Crm) 60 Gm Cream..g., 1 DOSE TOP BID, (Reported) USES ON LEGS Digoxin (Digoxin) 125 Mcg Tablet, 125 MCG PO DAILY, (Reported) Ezetimibe (Zetia) 10 Mg Tab, 10 MG PO QHS, (Reported) Fentanyl (Fentanyl) 12 Mcg Patch.td72, 1 PATCH TOP Q3RD, (Reported) APPLIED TO RIGHT CHEST Folic Acid (Folic Acid) 1 Mg Tab, 1 MG PO DAILY, (Reported) Metoprolol Succinate (Metoprolol Succinate) 50 Mg Tab.er.24h, 50 MG PO BID, (Reported) Spironolactone (Spironolactone) 25 Mg Tab, 25 MG PO DAILY, (Reported) Vancomycin/0.9 % Sod Chloride (Vanco 750 mg/150 ml-0.9% NaCl) 750 Mg/150 Ml Plast..bag, 750 MG IV DAILY, (Reported) Scheduled PRN Acetaminophen with Codeine (Tylenol with Codeine #3 Tablet) 1 Each Tablet, 1 TAB PO BID PRN for PAIN, (Reported) Colchicine (Colchicine) 0.6 Mg Tab, 0.6 MG PO DAILY PRN for GOUT, (Reported) Lanolin Alcohol/Mo/W.pet/[place] (Eucerin Creme) 454 Gm Cream..g., 1 DOSE TOP BID PRN for DRY SKIN, (Reported) USES ON ARMS AND LEGS NEEDED Anne-Marie PEACE FINAL COAT SPRAYER Feb 03, 2019 11:55
--- NOTE | 2019-02-03 13:28 | IPNPDOC ---
Text Note Date of Service The patient was seen on 02/03/19. NOTE Subjective: Patient seen and examined at bedside. Complains of general malaise, back pain. Objective: General: NAD, lying comfortably in bed, elderly, frail HEENT: NC/AT A/P: 88f with chf, afib, dm, ckd, compression fractures, multiple hospitalizations over the past few months including mrsa bacteremia in october, mrsa pna and diskitis in december, both of which presented as pain radiating from chest to back, now presents with the same pain. Pt has been receiving vancomycin via picc at home to complete a 6 week course on 02/10. #PNA - seen by ID - assistance appreciated has been on 4 weeks abx #Diskitis seems to have progressed on vanco continue vanco and rifampin ct unremarkable #+BCx - staph epi - contaminant? - repeat BCx negative to date - on vanco #DM monitor finger sticks continue sliding scale coverage diabetic diet Dispo: patient and family to discuss goals of care VS,Fishbone, I+O VS, Fishbone, I+O Vital Signs Date Time Temp Pulse Resp B/P (MAP) Pulse Ox O2 Delivery O2 Flow Rate FiO2 02/03/19 10:00 97.8 78 20 117/70 (86) 95 I&O- Last 24 Hours up to 6 AM 02/03/19 06:00 Intake Total 280 ml Output Total 0 ml Balance 280 ml RANULFO GILES MD Feb 03, 2019 13:28
[2019-02-03 14:00] VITALS: BP 126/62
[2019-02-03 18:00] VITALS: BP 116/62
[2019-02-03] MEDS: EZETIMIBE 10 MG TAB (ZETIA) PO SCH (21:40)
[2019-02-03] MEDS: **NOTE PATIENT COMMENT** MISC XX SCH (21:41)
[2019-02-03 22:00] VITALS: BP 120/65
[2019-02-04] MEDS: ACETAMINOPH W/CODEINE #3 TAB UD PO PRN ×4 (00:48→18:52)
[2019-02-04 02:00] VITALS: BP 113/74
[2019-02-04 06:00] VITALS: BP 115/73
[2019-02-04] MEDS: SODIUM CHLORIDE 0.9% INJ 10 ML SYR IV SCH ×2 (06:00→17:16)
[2019-02-04] MEDS: MOXIFLOXACIN 400 MG TAB PO SCH (06:31)
[2019-02-04] MEDS: VANCOMYCIN HCL 750 MG, VIAL MATE ADAPTER 1 EACH in D5W 250 ML IV SCH (06:31)
[2019-02-04] MEDS: HEPARIN SOD (PORCINE) 5000 UNITS/ML VIAL SC SCH ×3 (06:31→21:21)
[2019-02-04] MEDS: HumaLOG INSULIN (NovoLOG) PER UNIT SC SCH ×3 (06:57→17:06)
[2019-02-04 08:11] LABS: HEMATOCRIT 28.9 % (36.0-47.0); HEMOGLOBIN 8.7 g/dl (12.0-15.5); MEAN CORPUSCULAR VOLUME 81.9 fl (80.0-96.0); RED BLOOD COUNT 3.53 10^6/uL (4.00-5.40); WHITE BLOOD COUNT 11.1 10^3/uL (4.0-10.0)
[2019-02-04 08:12] LABS: MEAN CORPUSCULAR HEMOGLOBIN 24.6 pg (27.0-33.0); MEAN CORPUSCULAR HGB CONC 30.1 g/dl (32.0-36.5); PLATELET COUNT, AUTOMATED 342 10^3/uL (150-450)
[2019-02-04 08:38] LABS: BLOOD UREA NITROGEN 8 MG/DL (7-18); CALCIUM LEVEL 8.8 MG/DL (8.8-10.2); CARBON DIOXIDE LEVEL 25 MEQ/L (21-32); CHLORIDE LEVEL 104 MEQ/L (98-107); CREATININE FOR GFR 0.59 MG/DL (0.55-1.30); GLOMERULAR FILTRATION RATE > 60.0 (>32); GLUCOSE, FASTING 181 MG/DL (70-100); POTASSIUM SERUM 3.7 MEQ/L (3.5-5.1); SODIUM LEVEL 136 MEQ/L (136-145)
[2019-02-04] MEDS: METOPROLOL SUCC (TopROL XL) 50MG **XL** TAB PO SCH ×2 (08:48→20:51)
[2019-02-04] MEDS: LIDOCAINE 5% (LIDODERM) PATCH TD SCH (08:53)
[2019-02-04] MEDS: SPIRONOLACTONE 25 MG TAB PO SCH (08:54)
[2019-02-04] MEDS: ASPIRIN 81 MG ENTERIC TAB PO SCH (08:54)
[2019-02-04] MEDS: DIGOXIN 0.125 MG TAB PO SCH (08:54)
[2019-02-04] MEDS: FOLIC ACID 1 MG TAB PO SCH (08:54)
[2019-02-04] MEDS: ALLOPURINOL 300 MG TAB PO SCH (08:55)
[2019-02-04] MEDS: fentaNYL 12 MCG/HR PATCH TOP SCH (08:56)
[2019-02-04] MEDS: CLOBETASOL PROPIONATE EMOLLIENT 0.05% CR 60 GM TOP SCH ×2 (08:57→20:48)
[2019-02-04] MEDS: FENTANYL REMOVAL DOCUMENTATION MISC XX SCH (09:12)
[2019-02-04 10:00] VITALS: BP 127/84
[2019-02-04 14:00] VITALS: BP 127/82
--- NOTE | 2019-02-04 15:26 | IPNPDOC ---
Text Note Date of Service The patient was seen on 02/04/19. NOTE Subjective: Patient seen and examined at bedside. Complains of general malaise, back pain. Discussed with daughter. Objective: General: NAD, lying comfortably in bed, elderly, frail HEENT: NC/AT Lungs: CTA B/L, diminished breath sounds Heart: +S1S2 Abd: soft, NT A/P: 88f with chf, afib, dm, ckd, compression fractures, multiple hospitalizations over the past few months including mrsa bacteremia in october, mrsa pna and diskitis in december, both of which presented as pain radiating from chest to back, now presents with the same pain. Pt has been receiving vancomycin via picc at home to complete a 6 week course on 02/10. #PNA - seen by ID - assistance appreciated has been on 4 weeks abx #Diskitis seems to have progressed on vanco continue vanco and rifampin ct unremarkable #+BCx - staph epi - contaminant? - repeat BCx negative to date - on vanco #DM monitor finger sticks continue sliding scale coverage diabetic diet Dispo: patient and family still to discuss goals of care; ID f/u regarding IV vanco vs PO alternative on discharge; f/u PFS to facilitate discharge, an ticipating discharge home tomorrow VS,Kasia, I+O VS, Kasia, I+O Laboratory Tests 02/04/19 07:50 Red Blood Count 3.53 L, Mean Corpuscular Volume 81.9, Mean Corpuscular Hemoglobin 24.6 L, Mean Corpuscular Hemoglobin Concent 30.1 L, Red Cell Distribution Width 19.1 H, Calcium Level 8.8 Vital Signs Date Time Temp Pulse Resp B/P (MAP) Pulse Ox O2 Delivery O2 Flow Rate FiO2 02/04/19 13:13 18 02/04/19 10:00 98.1 98 127/84 (98) 97 I&O- Last 24 Hours up to 6 AM 02/04/19 05:59 Intake Total 360 ml Output Total 0 ml Balance 360 ml RANULFO GILES MD Feb 04, 2019 15:26 DOMINIQUE LUTZ DO Feb 09, 2019 18:41
--- NOTE | 2019-02-04 15:59 | CR.PDOC ---
General Date of Consultation: Feb 04, 2019 Referring Provider: RANULFO GILES MD Primary Care Physician: Jitendra De Oliveira MD Consultation REASON FOR CONSULTATION/CHIEF COMPLAINT: 88 year old with pneumonia, on IV antibiotics but no great improvemetn. Diastolic and systolic CHF. Type 2 DM. Carlify goals of care HISTORY OF PRESENT ILLNESS: refer to previous consults. Today I met with Anabelle. She was somnolent but arousable, though not for long. She reported her pain was better since her T+C#3 was changed back to 2 tab po q 6 hr. She was not able to remember her daughter's telephone numbernor was she able to stay awake for any length of time. Her son Ant came tosee her while I was there. Ant stated he tried taking care of both and Mrs Hernandez before his father apssed away, but eventually became overwhelmed and had to step away from this. HIs sister Abi took over at that point and even though Mr. Hernandez has , Mrs. Hernandez'scare has been all consuming for Negrita. I am told by nursing staff [facility] will not accept her back on their service if she is d ischarged. ALLERGIES: Please see below. HOME MEDICATIONS: Please see below. PAST MEDICAL HISTORY: as above PAST SURGICAL HISTORY: 1. 2. REVIEW OF SYSTEMS: unableto do fully as she could not stay awake PHYSICAL EXAMINATION: VITAL SIGNS: Please see below. GENERAL APPEARANCE: Sallow, cachectic appearing. Somnolent and appeared somewhat confused today when she was awake HEENT: [place] dry RESPIRATORY: wheezing and scattered rhonchi CARDIOVASCULAR: irregular ABDOMEN: hypoactive bowel sounds EXTREMITIES: no clubbing or cyanosis NEUROLOGICAL: drowsy, arousable appears to have changes in metation from previously in week PSYCHIATRIC: LABORATORY DATA: Please see below. ASSESSMENT/PLAN: 1. ?capacity...This patient appears to have changes in her metation and I am no longer certain she has capacity to make medical decisions 2. If she does not have capacity then the following questions need to be answered: does it make any sense to continue IV antibiotics in the face of worsening p neumonia in a patient who is clearly failing and likely to soon? 3. what should be done regarding placement? She is hospice appropriate, but may not be able to have adequate care at her home. Consdieration for referral to hospice residence is one option, though there are no beds there at this time. 4. possible inability to swallow safely. Change T+C#3 to morphine concentrate and give 5 mg po/sl q 2 hr prn. Increase dose as needed to maintain her comfort. Vital Signs/I&O Vital Signs Date Time Temp Pulse Resp B/P (MAP) Pulse Ox O2 Delivery O2 Flow Rate FiO2 02/04/19 13:13 18 02/04/19 10:00 98.1 98 127/84 (98) 97 I&O- Last 24 Hours up to 6 AM 02/04/19 06:00 Intake Total 360 ml Output Total 0 ml Balance 360 ml Laboratory Data Labs 24H Laboratory Tests 2 02/03/19 17:39: Bedside Glucose (Misc Panel) 105 02/04/19 06:19: Bedside Glucose (Misc Panel) 141H 02/04/19 07:50: Nucleated Red Blood Cells % (auto) 0.0, Anion Gap 7L, Glomerular Filtration Rate > 60.0, Blood Urea Nitrogen 8, Creatinine 0.59, Sodium Level 136, Potassium Level 3.7, Chloride Level 104, Carbon Dioxide Level 25, Calcium Level 8.8 02/04/19 11:29: Bedside Glucose (Misc Panel) 157H CBC/BMP Laboratory Tests 02/04/19 07:50 Red Blood Count 3.53 L, Mean Corpuscular Volume 81.9, Mean Corpuscular Hemoglobin 24.6 L, Mean Corpuscular Hemoglobin Concent 30.1 L, Red Cell Distribution Width 19.1 H, Calcium Level 8.8 Microbiology Microbiology 01/30/19 Blood Culture - Final, Complete NO GROWTH AFTER 5 DAYS 01/27/19 Blood Culture - Final, Complete NO GROWTH AFTER 5 DAYS 01/27/19 Blood Culture - Final, Complete Staphylococcus Epidermidis Allergies Coded Allergies: No Known Allergies (Unverified , 05/11/18) Home Medications Scheduled Allopurinol (Zyloprim) 300 Mg Tab, 300 MG PO DAILY, (Reported) Aspirin (Aspirin EC) 81 Mg Tab, 81 MG PO DAILY, (Reported) Clobetasol Propionate (Clobetasol Emollient 0.05% Crm) 60 Gm Cream..g., 1 DOSE TOP BID, (Reported) USES ON LEGS Digoxin (Digoxin) 125 Mcg Tablet, 125 MCG PO DAILY, (Reported) Ezetimibe (Zetia) 10 Mg Tab, 10 MG PO QHS, (Reported) Fentanyl (Fentanyl) 12 Mcg Patch.td72, 1 PATCH TOP Q3RD, (Reported) APPLIED TO RIGHT CHEST Folic Acid (Folic Acid) 1 Mg Tab, 1 MG PO DAILY, (Reported) Metoprolol Succinate (Metoprolol Succinate) 50 Mg Tab.er.24h, 50 MG PO BID, (Reported) Spironolactone (Spironolactone) 25 Mg Tab, 25 MG PO DAILY, (Reported) Vancomycin/0.9 % Sod Chloride (Vanco 750 mg/150 ml-0.9% NaCl) 750 Mg/150 Ml Plast..bag, 750 MG IV DAILY, (Reported) Scheduled PRN Acetaminophen with Codeine (Tylenol with Codeine #3 Tablet) 1 Each Tablet, 1 TAB PO BID PRN for PAIN, (Reported) Colchicine (Colchicine) 0.6 Mg Tab, 0.6 MG PO DAILY PRN for GOUT, (Reported) Lanolin Alcohol/Mo/W.pet/[place] (Eucerin Creme) 454 Gm Cream..g., 1 DOSE TOP BID PRN for DRY SKIN, (Reported) USES ON ARMS AND LEGS NEEDED Anne-Marie PEACE INSTANTIZER OPERATOR Feb 04, 2019 15:59
[2019-02-04 18:00] VITALS: BP 124/63
[2019-02-04] MEDS: EZETIMIBE 10 MG TAB (ZETIA) PO SCH (20:48)
[2019-02-04] MEDS: **NOTE PATIENT COMMENT** MISC XX SCH (20:54)
[2019-02-04 22:00] VITALS: BP 121/70
[2019-02-05] VITALS (7 sets, daily range): BP systolic 118–142; BP diastolic 67–103
[2019-02-05] MEDS: ACETAMINOPH W/CODEINE #3 TAB UD PO PRN ×3 (01:05→15:48)
[2019-02-05] MEDS: VANCOMYCIN HCL 750 MG, VIAL MATE ADAPTER 1 EACH in D5W 250 ML IV SCH (06:08)
[2019-02-05] MEDS: MOXIFLOXACIN 400 MG TAB PO SCH (06:09)
[2019-02-05] MEDS: SODIUM CHLORIDE 0.9% INJ 10 ML SYR IV SCH ×2 (06:09→17:53)
[2019-02-05] MEDS: HEPARIN SOD (PORCINE) 5000 UNITS/ML VIAL SC SCH ×3 (06:09→21:56)
[2019-02-05 06:24] LABS: HEMATOCRIT 32.8 % (36.0-47.0); HEMOGLOBIN 9.8 g/dl (12.0-15.5); MEAN CORPUSCULAR HEMOGLOBIN 23.8 pg (27.0-33.0); MEAN CORPUSCULAR HGB CONC 29.9 g/dl (32.0-36.5); MEAN CORPUSCULAR VOLUME 79.8 fl (80.0-96.0); PLATELET COUNT, AUTOMATED 434 10^3/uL (150-450); RED BLOOD COUNT 4.11 10^6/uL (4.00-5.40); WHITE BLOOD COUNT 12.1 10^3/uL (4.0-10.0)
[2019-02-05 06:49] LABS: BLOOD UREA NITROGEN 9 MG/DL (7-18); CALCIUM LEVEL 9.5 MG/DL (8.8-10.2); CARBON DIOXIDE LEVEL 27 MEQ/L (21-32); CHLORIDE LEVEL 105 MEQ/L (98-107); CREATININE FOR GFR 0.64 MG/DL (0.55-1.30); GLOMERULAR FILTRATION RATE > 60.0 (>32); GLUCOSE, FASTING 173 MG/DL (70-100); POTASSIUM SERUM 3.8 MEQ/L (3.5-5.1); SODIUM LEVEL 137 MEQ/L (136-145); VANCOMYCIN LEVEL TROUGH 18.3 UG/ML (10.0-20.0)
--- NOTE | 2019-02-05 07:04 | PHACANCOPD ---
PHARMACY VANCOMYCIN DOSING Pt Demographics Demographics Patient Age:88 , Weight:52.500 , Gender: female Adjusted Body Weight Vancomycin Vancomycin indication: PNA Vancomycin Target Ranges: 15-20 mcg/ml Vancomycin Load Y/N: No Load Dose Date Time Vancomycin Load Dose: Date: Time: Vancomycin Dose Date: 01/27/19. Current Vancomycin Dose: [750MG IV Q24H] initiated at transferring facility Intermittent Dosing?: No Labs Micro Microbiology 01/30/19 Blood Culture - Final, Complete NO GROWTH AFTER 5 DAYS 01/27/19 Blood Culture - Final, Complete NO GROWTH AFTER 5 DAYS 01/27/19 Blood Culture - Final, Complete Staphylococcus Epidermidis Creatinine Clearance Date:01/27/19. Creatinine Clearance: [>40ml/min]. Assessment and Plan Maintaining Current Dose?: Yes Reason for dose change: No Dose Change Pharmacist Note Pharmacist Note Date: 02/05/19. Pharmacist note:Vancomycin trough drawn this dariel@5:24 reported as 18.3.SCR=0.64. Will maintain current regimen of Vancomycin 750 mg iv Q24H- will continue to follow Date: 02/03/19. Pharmacist note:Vancomycin trough drawn this dariel@5:44 reported as 21.2.SCR=0.64-Will adjust Vancomycin dose to 500mg IV Q24H beginning with this morning's dose.Will monitor SCR and next trough to determine if 500mg will be continued.-will continue to followIt was discovered @1108 that trough had been drawn around 2 hours early @0511. Patient already received 500mg dose today. I have changed dose back to 750mg IV Vanco q24h starting at 0600 tomorrow. SCr was not obtained today. Will order tomorrow am if not received. Will continue to monitor patient's renal function and adjust dose as needed. 01/31: Patient's trough resulted today at 18.5. She will be continued on her home dose of Vancomycin 750mg IV q24h. We will continue to monitor and make changes as necessary. 01/30: Patient's trough today resulted at 18.7. 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 She will be continued on Vancomycin 750mg IV q24h for now and we will obtain another trough tomorrow morning to ensure patient isn't accumulating on this dose. Date: 01/27/19. PharmD note: THE PATIENT WAS TRANSFERRED HERE ALREADY ON VANCO 750MG IV Q24H. THE PATIENT WAS GIVEN 500MG IV x1 DOSE ON ADMISSION AFTER A VANCO RANDOM LEVEL WAS FOUND TO BE 15.9 mcg/ml. THE PHARMACY CONSULT OCCURRED AFTER THAT. IN THE MORNING WE WILL CONTINUE WITH VANCO 750MG IV Q24H STARTING AT 08:00 [facility] Feb 05, 2019 07:04
[2019-02-05] MEDS: HumaLOG INSULIN (NovoLOG) PER UNIT SC SCH ×3 (07:30→17:53)
[2019-02-05] MEDS: FOLIC ACID 1 MG TAB PO SCH (09:31)
[2019-02-05] MEDS: ALLOPURINOL 300 MG TAB PO SCH (09:31)
[2019-02-05] MEDS: SPIRONOLACTONE 25 MG TAB PO SCH (09:31)
[2019-02-05] MEDS: DIGOXIN 0.125 MG TAB PO SCH (09:31)
[2019-02-05] MEDS: ASPIRIN 81 MG ENTERIC TAB PO SCH (09:31)
[2019-02-05] MEDS: METOPROLOL SUCC (TopROL XL) 50MG **XL** TAB PO SCH ×2 (09:33→21:55)
[2019-02-05] MEDS: LIDOCAINE 5% (LIDODERM) PATCH TD SCH (09:33)
[2019-02-05] MEDS: CLOBETASOL PROPIONATE EMOLLIENT 0.05% CR 60 GM TOP SCH ×2 (09:34→21:52)
--- NOTE | 2019-02-05 11:29 | IPNPDOC ---
Text Note Date of Service The patient was seen on 02/05/19. NOTE Subjective: Patient seen and examined at bedside. Complains of general malaise, back pain. Discussed with daughter. Objective: General: NAD, lying comfortably in bed, elderly, frail HEENT: NC/AT Lungs: CTA B/L, diminished breath sounds Heart: +S1S2 Abd: soft, NT A/P: 88f with chf, afib, dm, ckd, compression fractures, multiple hospitalizations over the past few months including mrsa bacteremia in october, mrsa pna and diskitis in december, both of which presented as pain radiating from chest to back, now presents with the same pain. Pt has been receiving vancomycin via picc at home to complete a 6 week course on 02/10. #PNA - seen by ID - assistance appreciated has been on 4 weeks abx #Diskitis seems to have progressed on vanco continue vanco and rifampin ct unremarkable #+BCx - staph epi - contaminant? - repeat BCx negative to date - on vanco #DM monitor finger sticks continue sliding scale coverage diabetic diet Dispo: Patient does have capacity this morning. She states she does wish to proceed with hospice. VS,Fishbone, I+O VS, Fishbone, I+O Laboratory Tests 02/05/19 05:24 Calcium Level 9.5 02/05/19 05:25 Red Blood Count 4.11, Mean Corpuscular Volume 79.8 L, Mean Corpuscular Hemoglobin 23.8 L, Mean Corpuscular Hemoglobin Concent 29.9 L, Red Cell Distribution Width 19.5 H Vital Signs Date Time Temp Pulse Resp B/P (MAP) Pulse Ox O2 Delivery O2 Flow Rate FiO2 02/05/19 10:02 18 02/05/19 10:00 97.7 99 139/78 (98) 95 I&O- Last 24 Hours up to 6 AM 02/05/19 06:00 Intake Total 510 ml Output Total 0 ml Balance 510 ml RANULFO GILES MD Feb 05, 2019 11:29
--- NOTE | 2019-02-05 12:05 | CR.PDOC ---
General Date of Consultation: Feb 05, 2019 Referring Provider: RANULFO GILES MD Primary Care Physician: Anthony Mckenzie MD Attending Physician: Jitendra De Oliveira MD Consultation REASON FOR CONSULTATION/CHIEF COMPLAINT: clarification of goals of care, pain management HISTORY OF PRESENT ILLNESS: see previous consult notes ALLERGIES: Please see below. HOME MEDICATIONS: Please see below. CONSTITUTIONAL: no fevers or chills, fatigued HEENT: NA CARDIOVASCULAR: [no chest pain, +LE edema RESPIRATORY: congestion, tenacious secretions GENITOURINARY: poor urinary output MUSCULOSKELETAL: thoracic pain GASTROINTESTINAL: no BM in several days SKIN: breakdown on back and buttocks NEUROLOGICAL: NA PSYCHIATRIC: denies depression or anxiety ENDOCRINE: DM in control HEMATOLOGIC/LYMPHATIC: NA ALLERGIC/IMMUNOLOGIC: NA PHYSICAL EXAMINATION: VITAL SIGNS: Please see below. GENERAL APPEARANCE: Ill, frail appearing woman in bed, NAD HEENT: dry mouth, pharynx clear RESPIRATORY: no respiratory distress, scattered rhonchi CARDIOVASCULAR: irregular ABDOMEN: soft, +BS throughout EXTREMITIES: brawny discoloration bilateral lower extremites, +edema NEUROLOGICAL: no tremor or rigidity, more alert and oriented today PSYCHIATRIC: less irritable today. LABORATORY DATA: Please see below. ASSESSMENT/PLAN: 1. Decision has been made to have her enrolled in hospice care. I saw her along with Mally Echeverria LMSW. We discussed possible admission to the hospice residence, however, Anabelle stated she preferred to go home with care from Abi and private aide and homehealth aid at night. Mally let Abi and Anabelle know if in the future care at home is not feasiable she could transfer to the hospice facility. 2. Thoracic pain compression fracture and discitis. She reportsshe is doing better on T+C #3 2 tablets po q 6 hr, but does have some increased pain between doses. I suggested she might do better with standing T+C#3 as currently ordered q 6 hr, and have plain codeine 30 mg tab po q 4 hr prn between her T+C standing doses if she needs additional analgesia. I would prefer to use morphine, but Anabelle prefers to stay with codeine. It appears she will be discharged early next week ( Friday possibly ) with referral to hospice at that time. I can order a week's worth of medication to cover her needs until hospice slate picker her care officially. Vital Signs/I&O Vital Signs Date Time Temp Pulse Resp B/P (MAP) Pulse Ox O2 Delivery O2 Flow Rate FiO2 02/05/19 10:02 18 02/05/19 10:00 97.7 99 139/78 (98) 95 I&O- Last 24 Hours up to 6 AM 02/05/19 05:59 Intake Total 510 ml Output Total 0 ml Balance 510 ml Laboratory Data Labs 24H Laboratory Tests 2 02/04/19 16:53: Bedside Glucose (Misc Panel) 142H 02/05/19 05:24: Anion Gap 5L, Glomerular Filtration Rate > 60.0, Blood Urea Nitrogen 9, Creatinine 0.64, Sodium Level 137, Potassium Level 3.8, Chloride Level 105, Carbon Dioxide Level 27, Calcium Level 9.5, Vancomycin Level Trough 18.3 02/05/19 05:25: Nucleated Red Blood Cells % (auto) 0.0 CBC/BMP Laboratory Tests 02/05/19 05:24 Calcium Level 9.5 02/05/19 05:25 Red Blood Count 4.11, Mean Corpuscular Volume 79.8 L, Mean Corpuscular Hemoglobin 23.8 L, Mean Corpuscular Hemoglobin Concent 29.9 L, Red Cell Distribution Width 19.5 H Microbiology Microbiology 01/30/19 Blood Culture - Final, Complete NO GROWTH AFTER 5 DAYS 01/27/19 Blood Culture - Final, Complete NO GROWTH AFTER 5 DAYS 01/27/19 Blood Culture - Final, Complete Staphylococcus Epidermidis Allergies Coded Allergies: No Known Allergies (Unverified , 05/11/18) Home Medications Scheduled Allopurinol (Zyloprim) 300 Mg Tab, 300 MG PO DAILY, (Reported) Aspirin (Aspirin EC) 81 Mg Tab, 81 MG PO DAILY, (Reported) Clobetasol Propionate (Clobetasol Emollient 0.05% Crm) 60 Gm Cream..g., 1 DOSE TOP BID, (Reported) USES ON LEGS Digoxin (Digoxin) 125 Mcg Tablet, 125 MCG PO DAILY, (Reported) Ezetimibe (Zetia) 10 Mg Tab, 10 MG PO QHS, (Reported) Fentanyl (Fentanyl) 12 Mcg Patch.td72, 1 PATCH TOP Q3RD, (Reported) APPLIED TO RIGHT CHEST Folic Acid (Folic Acid) 1 Mg Tab, 1 MG PO DAILY, (Reported) Metoprolol Succinate (Metoprolol Succinate) 50 Mg Tab.er.24h, 50 MG PO BID, (Reported) Spironolactone (Spironolactone) 25 Mg Tab, 25 MG PO DAILY, (Reported) Vancomycin/0.9 % Sod Chloride (Vanco 750 mg/150 ml-0.9% NaCl) 750 Mg/150 Ml Plast..bag, 750 MG IV DAILY, (Reported) Scheduled PRN Acetaminophen with Codeine (Tylenol with Codeine #3 Tablet) 1 Each Tablet, 1 TAB PO BID PRN for PAIN, (Reported) Colchicine (Colchicine) 0.6 Mg Tab, 0.6 MG PO DAILY PRN for GOUT, (Reported) Lanolin Alcohol/Mo/W.pet/[place] (Eucerin Creme) 454 Gm Cream..g., 1 DOSE TOP BID PRN for DRY SKIN, (Reported) USES ON ARMS AND LEGS NEEDED Anne-Marie PEACE Feb 05, 2019 12:05
[2019-02-05] MEDS ORDERED: oxyCODONE 5MG TAB PO PRN (18:45)
[2019-02-05] MEDS: **NOTE PATIENT COMMENT** MISC XX SCH (21:52)
[2019-02-05] MEDS: ACETAMINOPH W/CODEINE #3 TAB UD PO SCH (21:54)
[2019-02-06] MEDS: ACETAMINOPH W/CODEINE #3 TAB UD PO SCH ×4 (04:50→21:50)
[2019-02-06] MEDS: HEPARIN SOD (PORCINE) 5000 UNITS/ML VIAL SC SCH ×3 (05:38→21:44)
[2019-02-06] MEDS: MOXIFLOXACIN 400 MG TAB PO SCH (05:38)
[2019-02-06] MEDS: VANCOMYCIN HCL 750 MG, VIAL MATE ADAPTER 1 EACH in D5W 250 ML IV SCH (05:38)
[2019-02-06 06:00] VITALS: BP 152/88
[2019-02-06] MEDS: SODIUM CHLORIDE 0.9% INJ 10 ML SYR IV SCH ×2 (06:49→17:59)
[2019-02-06] MEDS: LIDOCAINE 5% (LIDODERM) PATCH TD SCH (08:44)
[2019-02-06] MEDS: METOPROLOL SUCC (TopROL XL) 50MG **XL** TAB PO SCH ×2 (08:44→21:49)
[2019-02-06] MEDS: SPIRONOLACTONE 25 MG TAB PO SCH (08:44)
[2019-02-06] MEDS: ALLOPURINOL 300 MG TAB PO SCH (08:44)
[2019-02-06] MEDS: DIGOXIN 0.125 MG TAB PO SCH (08:45)
[2019-02-06] MEDS: CLOBETASOL PROPIONATE EMOLLIENT 0.05% CR 60 GM TOP SCH ×2 (08:46→21:49)
--- NOTE | 2019-02-06 09:54 | IPNPDOC ---
Text Note Date of Service The patient was seen on 02/06/19. NOTE Subjective: Patient seen and examined at bedside. Feels her pain is under better control. No complaints this morning. Objective: General: NAD, lying comfortably in bed, elderly, frail HEENT: NC/AT Lungs: CTA B/L, diminished breath sounds Heart: +S1S2 Abd: soft, NT A/P: 88f with chf, afib, dm, ckd, compression fractures, multiple hospitalizations over the past few months including mrsa bacteremia in october, mrsa pna and diskitis in december, both of which presented as pain radiating from chest to back, now presents with the same pain. Pt has been receiving vancomycin via picc at home to complete a 6 week course on 02/10. 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
[2019-02-06] MEDS: SENNA 8.6 MG TAB (SENOKOT) PO PRN (11:56)
[2019-02-06 14:00] VITALS: BP 129/75
[2019-02-06] MEDS ORDERED: MOM 30ML SUSPENSION UDC PO PRN (16:15)
[2019-02-06] MEDS ORDERED: LACTULOSE 20 GM/30 ML SYRUP UD PO PRN (16:15)
[2019-02-06] MEDS ORDERED: BISACODYL 10 MG SUPP PR PRN (16:15)
[2019-02-06] MEDS ORDERED: FLEET ENEMA PR PRN (16:15)
[2019-02-06] MEDS: NYSTATIN 100,000 UNITS/GM TOPICAL PWD 15 GM TOP PRN (17:58)
[2019-02-06] MEDS: DOCUSATE SOD LIQ 100MG/10ML UDC PO SCH (21:44)
[2019-02-06] MEDS: **NOTE PATIENT COMMENT** MISC XX SCH (21:50)
[2019-02-07] MEDS: ACETAMINOPH W/CODEINE #3 TAB UD PO SCH ×4 (04:40→22:24)
--- NOTE | 2019-02-07 05:35 | PHACANCOPD ---
PHARMACY VANCOMYCIN DOSING Pt Demographics Demographics Patient Age:88 , Weight:52.500 , Gender: female Adjusted Body Weight Vancomycin Vancomycin indication: PNA Vancomycin Target Ranges: 15-20 mcg/ml Vancomycin Load Y/N: No Load Dose Date Time Vancomycin Load Dose: Date: Time: Vancomycin Dose Date: 01/27/19. Current Vancomycin Dose: [750MG IV Q24H] initiated at transferring facility Intermittent Dosing?: No Labs Micro Microbiology 01/30/19 Blood Culture - Final, Complete NO GROWTH AFTER 5 DAYS Creatinine Clearance Date:01/27/19. Creatinine Clearance: [>40ml/min]. Assessment and Plan Maintaining Current Dose?: No Reason for dose change: Trough too high Pharmacist Note Pharmacist Note Date 02/06/19: Vancomycin trough drawn this morning at 0442 reported as 19.4. I decided to push her dose back about 5 hours and resume vancomycin IV 750mg q24h @1000 to give patient some time to clear some of the medication. Scheduled trough @ 0900 on 03/11/19. Will continue to monitor patient and adjust dose as needed. Date: 02/05/19. Pharmacist note:Vancomycin trough drawn this dariel@5:24 reported as 18.3.SCR=0.64. Will maintain current regimen of Vancomycin 750 mg iv Q24H- will continue to follow Date: 02/03/19. Pharmacist note:Vancomycin trough drawn this dariel@5:44 reported as 21.2.SCR=0.64-Will adjust Vancomycin dose to 500mg IV Q24H beginning with this morning's dose.Will monitor SCR and next trough to determine if 500mg will be continued.-will continue to followIt was discovered @1108 that trough had been drawn around 2 hours early @0511. Patient already received 500mg dose today. I have changed dose back to 750mg IV Vanco q24h starting at 0600 tomorrow. SCr was not obtained today. Will order tomorrow am if not received. Will continue to monitor patient's renal function and adjust dose as needed. 01/31: Patient's trough resulted today at 18.5. She will be continued on her home dose of Vancomycin 750mg IV q24h. We will continue to monitor and make changes as necessary. 01/30: Patient's trough today resulted at 18.7. 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 She will be continued on Vancomycin 750mg IV q24h for now and we will obtain another trough tomorrow morning to ensure patient isn't accumulating on this dose. Date: 01/27/19. PharmD note: THE PATIENT WAS TRANSFERRED HERE ALREADY ON VANCO 750MG IV Q24H. THE PATIENT WAS GIVEN 500MG IV x1 DOSE ON ADMISSION AFTER A VANCO RANDOM LEVEL WAS FOUND TO BE 15.9 mcg/ml. THE PHARMACY CONSULT OCCURRED AFTER THAT. IN THE MORNING WE WILL CONTINUE WITH VANCO 750MG IV Q24H STARTING AT 08:00 [facility] Feb 07, 2019 05:35
[2019-02-07] MEDS: SODIUM CHLORIDE 0.9% INJ 10 ML SYR IV SCH ×2 (05:38→17:23)
[2019-02-07] MEDS: HEPARIN SOD (PORCINE) 5000 UNITS/ML VIAL SC SCH (05:38)
[2019-02-07] MEDS: MOXIFLOXACIN 400 MG TAB PO SCH (05:38)
[2019-02-07 07:53] VITALS: BP 119/61
[2019-02-07] MEDS: DOCUSATE SOD LIQ 100MG/10ML UDC PO SCH ×2 (09:58→22:22)
[2019-02-07] MEDS: SPIRONOLACTONE 25 MG TAB PO SCH (09:59)
[2019-02-07] MEDS: METOPROLOL SUCC (TopROL XL) 50MG **XL** TAB PO SCH ×2 (09:59→22:26)
[2019-02-07] MEDS: ALLOPURINOL 300 MG TAB PO SCH (09:59)
[2019-02-07] MEDS: DIGOXIN 0.125 MG TAB PO SCH (10:00)
[2019-02-07] MEDS: fentaNYL 12 MCG/HR PATCH TOP SCH (10:00)
[2019-02-07] MEDS ORDERED: VANCOMYCIN HCL 750 MG, VIAL MATE ADAPTER 1 EACH in D5W 250 ML IV SCH (10:00)
[2019-02-07] MEDS: LIDOCAINE 5% (LIDODERM) PATCH TD SCH (10:00)
[2019-02-07] MEDS: CLOBETASOL PROPIONATE EMOLLIENT 0.05% CR 60 GM TOP SCH ×2 (10:01→22:23)
--- NOTE | 2019-02-07 10:26 | IPNPDOC ---
Text Note Date of Service The patient was seen on 02/07/19. NOTE Subjective: Patient seen and examined at bedside. Feels her pain is under better control. No complaints this morning. Objective: General: NAD, lying comfortably in bed, elderly, frail HEENT: NC/AT Lungs: CTA B/L, diminished breath sounds Heart: +S1S2 Abd: soft, NT A/P: 88f with chf, afib, dm, ckd, compression fractures, multiple hospitalizations over the past few months including mrsa bacteremia in october, mrsa pna and diskitis in december, both of which presented as pain radiating from chest to back, now presents with the same pain. Pt has been receiving vancomycin via picc at home to complete a 6 week course on 02/10. 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
[2019-02-07] MEDS: oxyCODONE 5MG TAB PO PRN (11:30)
[2019-02-07 14:00] VITALS: BP 119/63
[2019-02-07] MEDS: SENNA 8.6 MG TAB (SENOKOT) PO PRN (16:31)
[2019-02-07] MEDS: **NOTE PATIENT COMMENT** MISC XX SCH (21:00)
[2019-02-07 22:00] VITALS: BP 123/64
[2019-02-07] MEDS: NYSTATIN 100,000 UNITS/GM TOPICAL PWD 15 GM TOP PRN (22:23)
[2019-02-08] MEDS: MOXIFLOXACIN 400 MG TAB PO SCH (04:57)
[2019-02-08] MEDS: ACETAMINOPH W/CODEINE #3 TAB UD PO SCH ×4 (04:57→22:33)
[2019-02-08] MEDS: SODIUM CHLORIDE 0.9% INJ 10 ML SYR IV SCH ×2 (04:57→17:43)
[2019-02-08 06:00] VITALS: BP 119/62
--- NOTE | 2019-02-08 08:48 | IPNPDOC ---
Text Note Date of Service The patient was seen on 02/08/19. NOTE Subjective: Patient seen and examined at bedside. Feels her pain is under better control. No complaints this morning. Objective: General: NAD, lying comfortably in bed, elderly, frail HEENT: NC/AT Lungs: CTA B/L, diminished breath sounds Heart: +S1S2 Abd: soft, NT A/P: 88f with chf, afib, dm, ckd, compression fractures, multiple hospitalizations over the past few months including mrsa bacteremia in october, mrsa pna and diskitis in december, both of which presented as pain radiating from chest to back, now presents with the same pain. Pt has been receiving vancomycin via picc at home to complete a 6 week course on 02/10. 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
[2019-02-08] MEDS: SPIRONOLACTONE 25 MG TAB PO SCH (09:41)
[2019-02-08 09:42] LABS: BLOOD UREA NITROGEN 14 MG/DL (7-18); CALCIUM LEVEL 8.9 MG/DL (8.8-10.2); CARBON DIOXIDE LEVEL 24 MEQ/L (21-32); CHLORIDE LEVEL 106 MEQ/L (98-107); CREATININE FOR GFR 0.64 MG/DL (0.55-1.30); GLOMERULAR FILTRATION RATE > 60.0 (>32); GLUCOSE, FASTING 136 MG/DL (70-100); POTASSIUM SERUM 4.2 MEQ/L (3.5-5.1); SODIUM LEVEL 138 MEQ/L (136-145)
[2019-02-08] MEDS: DIGOXIN 0.125 MG TAB PO SCH (09:44)
[2019-02-08] MEDS: DOCUSATE SOD LIQ 100MG/10ML UDC PO SCH ×2 (09:44→19:48)
[2019-02-08] MEDS: ALLOPURINOL 300 MG TAB PO SCH (09:45)
[2019-02-08] MEDS: METOPROLOL SUCC (TopROL XL) 50MG **XL** TAB PO SCH ×2 (09:45→22:32)
[2019-02-08] MEDS: LIDOCAINE 5% (LIDODERM) PATCH TD SCH (09:46)
[2019-02-08] MEDS: CLOBETASOL PROPIONATE EMOLLIENT 0.05% CR 60 GM TOP SCH ×2 (09:46→22:34)
[2019-02-08] MEDS ORDERED: VANCOMYCIN HCL 500 MG in D5W MINI-BAG PLUS 100 ML IV SCH (10:00)
[2019-02-08] MEDS ORDERED: IPRATROPIUM 0.5MG/ALBUTEROL 2.5MG INH SOL UD 3ML (DUONEB)(J7620) NEB PRN (13:30)
[2019-02-08 14:00] VITALS: BP 136/65
[2019-02-08] MEDS: IPRATROPIUM 0.5MG/ALBUTEROL 2.5MG INH SOL UD 3ML (DUONEB)(J7620) NEB SCH ×2 (14:52→20:46)
--- NOTE | 2019-02-08 15:46 | PHACANCOPD ---
PHARMACY VANCOMYCIN DOSING Pt Demographics Demographics Patient Age:88 , Weight:52.500 , Gender: female Adjusted Body Weight Events Past 24 Hours Events Past 24 Hours: NO: Dialysis, Diuretic Therapy, Change in CrCl, Fever, Elevation in WBC, Pending Diagnostics, Pending Procedures, Other Vancomycin Vancomycin indication: PNA Vancomycin Target Ranges: 15-20 mcg/ml Vancomycin Load Y/N: No Load Dose Date Time Vancomycin Load Dose: Date: Time: Vancomycin Dose Date: 02/08/19. Current Vancomycin Dose: [500mg IV q24h@10] Date: 01/27/19. Current Vancomycin Dose: [750MG IV Q24H] initiated at transferring facility Intermittent Dosing?: No Labs Labs Item Value Date Time White Blood Count 12.0 10^3/uL H 02/02/19 0544 White Blood Count 11.1 10^3/uL H 02/04/19 0750 White Blood Count 12.1 10^3/uL H 02/05/19 0525 Creatinine 0.64 MG/DL 02/05/19 0524 Creatinine 0.64 MG/DL 02/08/19 0859 C-Reactive Protein, Quantitative 13.10 MG/DL H 02/02/19 0544 Vital Signs Label Value Date Time Patient Temperature 97.1 degrees F 02/08/19 1400 Temperature Source Temporal 02/08/19 1400 Micro Microbiology 01/30/19 Blood Culture - Final, Complete NO GROWTH AFTER 5 DAYS Creatinine Clearance Date:01/27/19. Creatinine Clearance: [>40ml/min]. Assessment and Plan Maintaining Current Dose?: No Reason for dose change: Trough too high Pharmacist Note Pharmacist Note 02/08: Patient's trough resulted at 19 this morning, after dose being held for 5 hours yesterday. Her dose was therefore adjusted to Vancomycin 500mg IV q24h starting at 10am. Another trough will be obtained tomorrow to make sure her level doesn't drop below 15. We will continue to monitor and make adjustments as necessary. Date 02/06/19: Vancomycin trough drawn this morning at 0442 reported as 19.4. I decided to push her dose back about 5 hours and resume vancomycin IV 750mg q24h @1000 to give patient some time to clear some of the medication. Scheduled trough @ 0900 on 03/11/19. Will continue to monitor patient and adjust dose as needed. Date: 02/05/19. Pharmacist note:Vancomycin trough drawn this dariel@5:24 reported as 18.3.SCR=0.64. Will maintain current regimen of Vancomycin 750 mg iv Q24H- will continue to follow Date: 02/03/19. Pharmacist note:Vancomycin trough drawn this dariel@5:44 reported as 21.2.SCR=0.64-Will adjust Vancomycin dose to 500mg IV Q24H beginning with this morning's dose.Will monitor SCR and next trough to determine if 500mg will be continued.-will continue to followIt was discovered @1108 that trough had been drawn around 2 hours early @0511. Patient already received 500mg dose today. I have changed dose back to 750mg IV Vanco q24h starting at 0600 tomorrow. SCr was not obtained today. Will order tomorrow am if not received. Will continue to monitor patient's renal function and adjust dose as needed. 01/31: Patient's trough resulted today at 18.5. She will be continued on her home dose of Vancomycin 750mg IV q24h. We will continue to monitor and make changes as necessary. 01/30: Patient's trough today resulted at 18.7. 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 She will be continued on Vancomycin 750mg IV q24h for now and we will obtain another trough tomorrow m orning to ensure patient isn't accumulating on this dose. Date: 01/27/19. PharmD note: THE PATIENT WAS TRANSFERRED HERE ALREADY ON VANCO 750MG IV Q24H. THE PATIENT WAS GIVEN 500MG IV x1 DOSE ON ADMISSION AFTER A VANCO RANDOM LEVEL WAS FOUND TO BE 15.9 mcg/ml. THE PHARMACY CONSULT OCCURRED AFTER THAT. IN THE MORNING WE WILL CONTINUE WITH VANCO 750MG IV Q24H STARTING AT 08:00 [facility] Feb 08, 2019 15:46
[2019-02-08 22:00] VITALS: BP 124/68
[2019-02-09] MEDS: IPRATROPIUM 0.5MG/ALBUTEROL 2.5MG INH SOL UD 3ML (DUONEB)(J7620) NEB SCH ×6 (00:10→20:05)
[2019-02-09] MEDS: oxyCODONE 5MG TAB PO PRN (00:26)
[2019-02-09] MEDS: **NOTE PATIENT COMMENT** MISC XX SCH (00:46)
[2019-02-09] MEDS: ACETAMINOPH W/CODEINE #3 TAB UD PO SCH ×4 (04:52→22:28)
[2019-02-09] MEDS: SODIUM CHLORIDE 0.9% INJ 10 ML SYR IV SCH ×2 (06:13→18:00)
[2019-02-09] MEDS: DOCUSATE SOD LIQ 100MG/10ML UDC PO SCH ×2 (10:45→20:15)
[2019-02-09] MEDS: METOPROLOL SUCC (TopROL XL) 50MG **XL** TAB PO SCH ×2 (10:47→21:00)
[2019-02-09] MEDS: DIGOXIN 0.125 MG TAB PO SCH (10:49)
[2019-02-09] MEDS: CLOBETASOL PROPIONATE EMOLLIENT 0.05% CR 60 GM TOP SCH ×2 (10:49→22:32)
[2019-02-09] MEDS: ALLOPURINOL 300 MG TAB PO SCH (10:52)
[2019-02-09] MEDS: LIDOCAINE 5% (LIDODERM) PATCH TD SCH (10:53)
[2019-02-09] MEDS ORDERED: LORazepam 1 MG TAB PO PRN (13:15)
[2019-02-09] MEDS ORDERED: SCOPOLAMINE 1MG TRANSDERMAL PATCH TOP PRN (13:15)
--- NOTE | 2019-02-09 13:16 | CR.PDOC ---
General Date of Consultation: Feb 09, 2019 Referring Provider: RANULFO GILES MD Primary Care Physician: Anthony Mckenzie MD Attending Physician: Jitendra De Oliveira MD Consultation REASON FOR CONSULTATION/CHIEF COMPLAINT: [CHF, MRSA pn, discitis, chronic pain from compression fractures I received a call from Anabelle Dumont's daughter earlier today her mother was requesting admission to hospice residence. At this time there is no bed, however, I will notify Ashly Hester RN about this. She is already a frost of Anabelle's medical situation. Today Anabelle was complaining of pain earlier, but at the time of my visit, stated she was doing better pain still. She appears drowsy, frail and is ill looking. Vanco has been completed. Picc line should be removed. Formal hospice referral should be placed. Consider Increasing fentanyl patch from 12 mcg to 25 mcg for better baseline carlo n control. Consideration oculd be given to starting morphine concentrate 5 mg po/sl q2 hr prn however, Anabelle may not accept this. If this is started and she accepts it, then would dicontineu oxycodone. [facility] day for room and board at hospice or other SNF facility according to [facility] Vital Signs/I&O Vital Signs Date Time Temp Pulse Resp B/P (MAP) Pulse Ox O2 Delivery O2 Flow Rate FiO2 02/09/19 11:45 20 02/09/19 10:49 81 02/09/19 10:47 72/50 02/08/19 22:00 97.2 93 I&O- Last 24 Hours up to 6 AM 02/09/19 06:00 Intake Total 425 ml Output Total 100 ml Balance 325 ml Laboratory Data Labs 24H Laboratory Tests 2 02/08/19 16:58: Bedside Glucose (Misc Panel) 126H Microbiology Microbiology 01/30/19 Blood Culture - Final, Complete NO GROWTH AFTER 5 DAYS Allergies Coded Allergies: No Known Allergies (Unverified , 05/11/18) Home Medications Scheduled Allopurinol (Zyloprim) 300 Mg Tab, 300 MG PO DAILY, (Reported) Aspirin (Aspirin EC) 81 Mg Tab, 81 MG PO DAILY, (Reported) Clobetasol Propionate (Clobetasol Emollient 0.05% Crm) 60 Gm Cream..g., 1 DOSE TOP BID, (Reported) USES ON LEGS Digoxin (Digoxin) 125 Mcg Tablet, 125 MCG PO DAILY, (Reported) Ezetimibe (Zetia) 10 Mg Tab, 10 MG PO QHS, (Reported) Fentanyl (Fentanyl) 12 Mcg Patch.td72, 1 PATCH TOP Q3RD, (Reported) APPLIED TO RIGHT CHEST Folic Acid (Folic Acid) 1 Mg Tab, 1 MG PO DAILY, (Reported) Metoprolol Succinate (Metoprolol Succinate) 50 Mg Tab.er.24h, 50 MG PO BID, (Reported) Spironolactone (Spironolactone) 25 Mg Tab, 25 MG PO DAILY, (Reported) Vancomycin/0.9 % Sod Chloride (Vanco 750 mg/150 ml-0.9% NaCl) 750 Mg/150 Ml Plast..bag, 750 MG IV DAILY, (Reported) Scheduled PRN Acetaminophen with Codeine (Tylenol with Codeine #3 Tablet) 1 Each Tablet, 1 TAB PO BID PRN for PAIN, (Reported) Colchicine (Colchicine) 0.6 Mg Tab, 0.6 MG PO DAILY PRN for GOUT, (Reported) Lanolin Alcohol/Mo/W.pet/[place] (Eucerin Creme) 454 Gm Cream..g., 1 DOSE TOP BID PRN for DRY SKIN, (Reported) USES ON ARMS AND LEGS NEEDED Anne-Marie PEACE [employer] Feb 09, 2019 13:16
[2019-02-09] MEDS: MORPHINE 10MG/0.5ML ORAL CONCENTRATE SOLUTION U/D SL PRN ×4 (13:27→22:29)
[2019-02-09] MEDS ORDERED: MORPHINE 10MG/0.5ML ORAL CONCENTRATE SOLUTION U/D SL PRN (18:15)
--- NOTE | 2019-02-09 18:39 | IPNPDOC ---
Text Note Date of Service The patient was seen on 02/09/19. NOTE NOTE Subjective: Patient seen and examined at bedside. Pt c/o vague , diffuse musculoskeletal carlo n in her shoulder girdle Objective: General: NAD, cachectic F, lying comfortably in bed, elderly, frail HEENT: NC/AT, PERRLA, EOMI Lungs: CTA B/L, diminished breath sounds b/l Heart: +S1S2, RRR Back: fentanyl patch in place, moderate tenderness omn palpation through T1-T10 Abd: soft, NT, mildly disteneded, no rebound A/P: 88f with chf, afib, dm, ckd, compression fractures, multiple hospitalizations over the past few months including mrsa bacteremia in october, mrsa pna and diskitis in december, both of which presented as pain radiating from chest to back, now presents with the same pain. Pt has been receiving vancomycin via picc at home to complete a 6 week course on 02/10. Pt was transferred to [employer] status. #PNA - 2/2 bacterial PNA due to MRSA. Dc AB due to [employer] status #Diskitis - d/c vancomycin due to [employer] status increased the dose of fentanyl patch to 25 mg #NIDDM2 - regular diet, stopped coverage as patient is [employer] Dispo: Pending placement at hospice house, patient is [employer] . VS,Fishbone, I+O VS, Fishbone, I+O VS,Fishbone, I+O VS, Fishbone, I+O Vital Signs Date Time Temp Pulse Resp B/P (MAP) Pulse Ox O2 Delivery O2 Flow Rate FiO2 02/09/19 17:46 20 02/09/19 10:49 81 02/09/19 10:47 72/50 02/08/19 22:00 97.2 93 I&O- Last 24 Hours up to 6 AM 02/09/19 05:59 Intake Total 425 ml Output Total 100 ml Balance 325 ml DOMINIQUE LUTZ DO Feb 09, 2019 18:39
[2019-02-10] MEDS: MORPHINE 10MG/0.5ML ORAL CONCENTRATE SOLUTION U/D SL PRN ×4 (00:32→14:52)
[2019-02-10] MEDS: **NOTE PATIENT COMMENT** MISC XX SCH ×2 (00:46→21:00)
[2019-02-10] MEDS: SODIUM CHLORIDE 0.9% INJ 10 ML SYR IV SCH ×2 (03:04→18:00)
[2019-02-10] MEDS: ACETAMINOPH W/CODEINE #3 TAB UD PO SCH ×3 (04:24→16:36)
[2019-02-10] MEDS: IPRATROPIUM 0.5MG/ALBUTEROL 2.5MG INH SOL UD 3ML (DUONEB)(J7620) NEB SCH ×6 (07:22→23:39)
[2019-02-10] MEDS: METOPROLOL SUCC (TopROL XL) 50MG **XL** TAB PO SCH ×2 (09:00→23:05)
[2019-02-10] MEDS: DOCUSATE SOD LIQ 100MG/10ML UDC PO SCH ×2 (09:00→22:57)
[2019-02-10] MEDS: DIGOXIN 0.125 MG TAB PO SCH (09:00)
[2019-02-10] MEDS: ALLOPURINOL 300 MG TAB PO SCH (09:00)
[2019-02-10] MEDS ORDERED: fentaNYL 25 MCG/HR PATCH TOP SCH (09:00)
[2019-02-10] MEDS: FENTANYL REMOVAL DOCUMENTATION MISC XX SCH (10:06)
[2019-02-10] MEDS: LIDOCAINE 5% (LIDODERM) PATCH TD SCH (10:07)
[2019-02-10] MEDS: CLOBETASOL PROPIONATE EMOLLIENT 0.05% CR 60 GM TOP SCH ×2 (10:07→21:00)
[2019-02-10] MEDS: oxyCODONE 5MG TAB PO PRN (13:57)
[2019-02-10] MEDS ORDERED: MORPHINE 10MG/0.5ML ORAL CONCENTRATE SOLUTION U/D SL PRN (16:45)
[2019-02-10] MEDS ORDERED: MORPHINE SULF IN 0.9% NACL 100 MG in APPROPRIATE DILUENT 1 EA IV SCH ×4 (19:00→21:45)
[2019-02-10] MEDS ORDERED: EPIDURAL/PCA KEYS XX PRN (19:00)
[2019-02-10] MEDS ORDERED: MORPHINE 4 MG/ML 1ML VIAL/SYRINGE (J2270) IV PRN (21:30)
[2019-02-10 23:05] VITALS: BP 128/73
[2019-02-11] MEDS: IPRATROPIUM 0.5MG/ALBUTEROL 2.5MG INH SOL UD 3ML (DUONEB)(J7620) NEB SCH (03:12)
[2019-02-11] MEDS: FENTANYL REMOVAL DOCUMENTATION MISC XX SCH (04:07)
--- NOTE | 2019-02-11 04:25 | DS.PDOC ---
Discharge Summary General Date of Admission Jan 27, 2019 at 14:44 Date of Discharge 02/11/2019 Primary Care Physician: Anthony Mckenzie MD Attending Physician: DOMINIQUE LUTZ DO Discharge Summary Time of service 4:20 AM PROCEDURES PERFORMED DURING STAY: [None]. ADMITTING DIAGNOSES: 1. MRSA pneumonia. 2. Diarrhea DISCHARGE DIAGNOSES: 1. Suspected cardiac arrest likely due to hypoxemia, likely due to MRSA pneumonia COMPLICATIONS/CHIEF COMPLAINT: Pneumonia. HISTORY OF PRESENT ILLNESS: Per HPI "Ms. Hernandez is a an 88 old female who is complaining of of persistent, sharp, nonradiating left-sided chest pain that has been present since her previous admission for...[worsening] right lower lobe pneumonia secondary to MRSA. Per discussion with ID, she was started on IV IV vancomycin for a total of 64 weeks with plans to complete the course of treatment on February 10. She was evaluated today by a home RN who noted that the patient had rhonchi and sent her back to the hospital for evaluation." HOSPITAL COURSE: She was admitted to the medical floor and continued treatment for her pneumonia and discitis, but her family decided to transition to comfort measures. She on the morning of February 11 at approximately 305 AM DISCHARGE MEDICATIONS: n/a ALLERGIES: Please see below. PHYSICAL EXAMINATION ON DISCHARGE: VITAL SIGNS: Not applicable GENERAL: Unresponsive INTEGUMENT: Generalized pallor CARDIOVASCULAR EXAMINATION: No heart sounds RESPIRATORY EXAMINATION: No breath sounds LABORATORY DATA: Please see permanent medical record IMAGING: Please see permanent medical record TIME SPENT ON DISCHARGE: Greater than 15 minutes. Discharge Medications Scheduled Allopurinol (Zyloprim) 300 Mg Tab, 300 MG PO DAILY, (Reported) Aspirin (Aspirin EC) 81 Mg Tab, 81 MG PO DAILY, (Reported) Clobetasol Propionate (Clobetasol Emollient 0.05% Crm) 60 Gm Cream..g., 1 DOSE TOP BID, (Reported) USES ON LEGS Digoxin (Digoxin) 125 Mcg Tablet, 125 MCG PO DAILY, (Reported) Ezetimibe (Zetia) 10 Mg Tab, 10 MG PO QHS, (Reported) Fentanyl (Fentanyl) 12 Mcg Patch.td72, 1 PATCH TOP Q3RD, (Reported) APPLIED TO RIGHT CHEST Folic Acid (Folic Acid) 1 Mg Tab, 1 MG PO DAILY, (Reported) Metoprolol Succinate (Metoprolol Succinate) 50 Mg Tab.er.24h, 50 MG PO BID, (Reported) Spironolactone (Spironolactone) 25 Mg Tab, 25 MG PO DAILY, (Reported) Vancomycin/0.9 % Sod Chloride (Vanco 750 mg/150 ml-0.9% NaCl) 750 Mg/150 Ml Plast..bag, 750 MG IV DAILY, (Reported) Scheduled PRN Acetaminophen with Codeine (Tylenol with Codeine #3 Tablet) 1 Each Tablet, 1 TAB PO BID PRN for PAIN, (Reported) Colchicine (Colchicine) 0.6 Mg Tab, 0.6 MG PO DAILY PRN for GOUT, (Reported) Lanolin Alcohol/Mo/W.pet/[place] (Eucerin Creme) 454 Gm Cream..g., 1 DOSE TOP BID PRN for DRY SKIN, (Reported) USES ON ARMS AND LEGS NEEDED Allergies Coded Allergies: No Known Allergies (Unverified , 05/11/18) ISIDRO MURILLO MD Feb 11, 2019 04:24
[2019-02-11] MEDS: SODIUM CHLORIDE 0.9% INJ 10 ML SYR IV SCH (04:26)
== END 2019-02-11 03:05 | disposition expired | DRG 178 ==
LOC: EDBD 11:12 → M ED 11:12 → M ED INP 14:44 → M MSPAV 17:16
PROVIDERS: ADMIT Internal Medicine; ATTEND Internal Medicine
DX: J15.212 Pneumonia due to Methicillin resistant Staphylococcus aureus (principal); I50.42 Chronic combined systolic (congestive) and diastolic (congestive) heart failure; M80.08XA Age-related osteoporosis with current pathological fracture, vertebra(e), initial encounter for fracture; E46 Unspecified protein-calorie malnutrition; M46.44 Discitis, unspecified, thoracic region; Z66 Do not resuscitate; N18.3 Chronic kidney disease, stage 3 (moderate); I48.2 Chronic atrial fibrillation; E78.5 Hyperlipidemia, unspecified; E11.9 Type 2 diabetes mellitus without complications; M81.0 Age-related osteoporosis without current pathological fracture; R09.02 Hypoxemia; Z51.5 Encounter for palliative care; Z79.899 Other long term (current) drug therapy; Z79.82 Long term (current) use of aspirin; R19.7 Diarrhea, unspecified